=== PATIENT | female | born 1945 | race African-American/Black ===

== ENCOUNTER → 2018-02-28 14:39 | Outpatient (CLI) | payer MEDICARE, OTHER, MEDICAID, SELFPAY ==
--- NOTE | 2018-02-28 14:42 | RAD_ITS ---
STUDY: X-RAY - RIGHT HAND REASON FOR EXAM: Bilateral hand pain. TECHNIQUE: 3 view(s) of the hand. COMPARISON: Radiographs 03/23/2017. FINDINGS: Normal radiocarpal articulation. Normal distal radioulnar joint. Normal visualized carpal bones. There is joint space narrowing of the triscaphe articulation. Normal carpometacarpal articulation of the thumb. Normal second through fifth carpometacarpal joints. Normal metacarpi. Normal metacarpophalangeal joint of the thumb. Normal interphalangeal joint of the thumb. Normal proximal and distal phalanges of the thumb. Normal metacarpophalangeal joints of the second through fifth fingers. Normal proximal and distal interphalangeal joints of the second through fifth fingers. Normal phalanges of the second through fifth fingers. The soft tissue structures are unremarkable. RAD/Hand Min 3 Views IMPRESSION: Triscaphe arthrosis. Otherwise, unremarkable x-ray examination of the right hand. Electronically Signed: Carlos Roth MD at 16:15 EDT Tel , Service support ,
--- NOTE | 2018-02-28 14:49 | RAD_ITS ---
STUDY: X-RAY - LEFT HAND REASON FOR EXAM: Female, 72 years old. Pain TECHNIQUE: Three view(s) of the hand were obtained. COMPARISON: None. FINDINGS: Bones: There are no acute osseous abnormalities. Joints: There is mild narrowing of the radiocarpal joint and first CMC joint. Soft tissues: The soft tissues are unremarkable. Foreign body: None RAD/Hand Min 3 Views IMPRESSION: There are mild degenerative changes in the left wrist. Electronically Signed: Jade Aguilera MD at 12:09 EDT Tel Direct: [phone], Service support ,
== END ==
PROVIDERS: Family Provider Family Medicine; PCP Family Medicine; Visit Provider Orthopaedic Surgery
DX: M79.641 Pain in right hand (principal); M79.642 Pain in left hand
CPT/HCPCS: 73130; 93005

== ENCOUNTER 2018-03-07 07:57 | Inpatient (IN) | payer MEDICARE, OTHER, MEDICAID, SELFPAY ==
[2018-02-28 13:33] VITALS: BP 145/83; PULSE 97; RESP 18; TEMP 36.8; O2SAT 99; BMI 44.6
--- NOTE | 2018-02-28 13:36 | SDCEKG_ITS ---
Test Reason : Blood Pressure : / mmHG Vent. Rate : 084 BPM Atrial Rate : 084 BPM P-R Int : 150 ms QRS Dur : 092 ms QT Int : 392 ms P-R-T Axes : 034 008 045 degrees QTc Int : 463 ms Normal sinus rhythm Normal ECG Confirmed by CORBIN MILES ([id number]), editor newspaper WYATT SORENSEN ([id number]) on 03/02/2018 2:10:11 PM Referred By: Derek Vazquez Confirmed By:CORBIN MILES
[2018-02-28 14:15] LABS: Hematocrit 31.9 % (37-47); Mean Corp Hgb Conc 31.3 g/gl (32-36); Mean Corpuscular Hgb 27.5 pg (27.0-32.0); Mean Corpuscular Volume 87.9 fL (81-99); Platelet Count 269 K/mm3 (150-450); RBC Distribution Width CV 14.6 % (11.6-14.6); RBC Distribution Width SD 45.7 fl (35.1-43.9); Red Blood Count 3.63 M/mm3 (4.2-5.4); White Blood Count 4.9 K/mm3 (4.4-11.0)
[2018-02-28 14:16] LABS: Scan Indicated on CBC? Y/N NO
[2018-02-28 14:26] LABS: Anion Gap 10 (5-15); BUN 19 mg/dL (7-18); BUN/Creat Ratio 13.7 RATIO (10-20); Calcium,Total 8.6 mg/dL (8.5-10.1); Chloride 109 mmol/L (98-107); Creatinine, Serum 1.39 mg/dL (0.55-1.02); EST Glomerular Filtration Rate 39 mL/min (>60); Est Glom Filt Rate - Afr Amer 48 mL/min (>60); Estimated Creatinine Clearance 29.37 ml/min; Glucose 129 mg/dL (74-106); Potassium 3.7 mmol/L (3.5-5.1); Sodium Level 145 mmol/L (136-145)
--- NOTE | 2018-03-02 16:48 | CASEMGMT ---
DARIEN MCCALL called and spoke with patient regarding discharge needs after upcoming surgery. Patient states that she needs a walker, DARIEN MCCALL will assist in obtaining script for walker and arrange for delivery to hospital. Patient states that she would like [facility] setup for outpatient therapy and will arranged for family to assist with transportation. Patient states [facility] DARIEN MCCALL will follow up with patient after surgery and will assist with discharge needs. Disposition Plan: Patient to discharge home with outpatient therapy with support of family and follow-up plans in place Luke ROLAND, RN, CM
[2018-03-07] VITALS (11 sets, daily range): BP systolic 115–155; BP diastolic 67–94; PULSE 60–84; RESP 16–18; TEMP 36.1–37; O2SAT 93–100; BMI 44.6
--- NOTE | 2018-03-07 | KNEE_PTH ---
PATIENT: CLAUDIA REED LOC: MS3 U#:[id number] AGE/SX: 72/F ROOM: MS308 RE03/07/[address]: Derek Vazquez DO : 1945 BED: 1 DIS: 03/09/2018 SPEC #: [id number] RECD: 03/07/18 14:53 STATUS: CLIFF RERhonda #: [id number] KEVON: 03/07/18 00:[address]: Derek Vazquez DEPT: SURGICAL PATHOLOGY RECD BY: Edson Marcial ENTERED: 03/07/18 14:53 SP TYPE: TOTAL KNEE OTHR DR: Dr. Lazaro Moise MD Tissues: Knee, NOS Procedures: Decalcification bone/plaque Surgery Specimen Level IV HEADER OPERATION: Total knee replacement PRE-OP DIAGNOSIS: Primary osteoarthritis of left knee TISSUE SUBMITTED: Bone and tissue of left knee MICROSCOPIC DIAGNOSIS Bone and soft tissue of left knee, total knee resection: Degenerative joint disease. Mild synovial hyperplasia. AM:mariah 03/10/18 MICROSCOPIC DESCRIPTION Slides are reviewed. GROSS DESCRIPTION Received is one container designated bone and soft tissue left knee. The specimen consists of multiple fragments of harden-yellow bone measuring in aggregate 15 x 10 x 2 cm. Also in the specimen container are multiple fragments of yellow-white soft tissue measuring in aggregate 8 x 5 x 2 cm. A number of bony fragments contain articular surfaces consistent with tibial plateau and femoral condyle and displaying prominent osteophyte formation, eburnation, and bone erosion. [facility] sections are submitted in two cassettes as follows: 1 - soft tissue, 2 - bone after decalcification. / AM:mariah 03/07/18 TC:5 CPT: 69805, 28189
[2018-03-07] MEDS: Celecoxib 200 MG Capsule PO (08:32)
[2018-03-07] MEDS: oxyCODONE HCl Cr 10 MG Tablet PO ×2 (08:33→21:33)
--- NOTE | 2018-03-07 09:34 | PCM.IMDPSTOP ---
Immediate Post-Op Note Date of Procedure: 03/07/18 Primary Surgeon/Physician: Derek Vazquez DO toll line mechanic: Margarito Whitman Pre-Operative Diagnosis: Left knee osteoarthritis Post-Operative Diagnosis: Same as above Surgery/Procedure Performed:: Left total knee arthroplasty-[place] so[facility] Description of Surgical Findings:: See dictation Estimated Blood Loss: 50 Specimen's removed: Bone cuts Type of Anesthesia:: General, General/Regional ASA Class: ASA2 Mod Systematic Disease - Admit VTE Documentation VTE Present on Admission: No VTE Mechan Device Prophylaxis: SCD's, Knee High FÁTIMA Hose VTE Pharm Prophylaxis ordered?: Yes
[2018-03-07] MEDS: Cefazolin 2 GM in 0.9% Normal Saline 100 ML IV (10:29)
--- NOTE | 2018-03-07 12:08 | PCM.OPRPT ---
Report of Operation Date of Procedure: 03/07/18 Pre-Operative Diagnosis: Left knee osteoarthritis Post-Operative Diagnosis: Same as above Surgery/Procedure Performed:: Left total knee arthroplasty-Leeanne arriaza Description of Surgical Findings:: 72-year-old female with recalcitrant left knee pain that failed nonoperative management to include NSAIDs activity modifications physical therapy and injections. Patient had plain from radiographs and MRI that showed her to have patellofemoral arthrosis and medial compartment narrowing subchondral edema and meniscal extrusion. Based on age and having failed conservative measures my recommendation was for total knee arthroplasty. Patient agreed due to knee pain affecting her activities of daily living. Patient was met in the holding area over the left lower extremity was marked and identified by the with surgeon. Patient was taken the operating room in satisfactory condition with somewhat to place to identify patient operative procedure and limb. She received 2 g Ancef and 1 g of TXA. Patient underwent a successful general anesthesia and was then prepped and draped in usual fashion. Patient had a well-placed tourniquet the right proximal thigh prior to dressing. Right lower extremity was elevated Esmarch used for exsanguination and tourniquet was increased to 250 mmHg for roughly 60 minutes. Patient had a standard midline incision made 2 fingerbreadths above the patella down to the tibial tubercle. She then underwent a standard medial parapatellar approach. Patient had a large return effusion and significant synovitis. She had went underwent a synovectomy and an anterior release. We performed a standard posterior medial release. We then translated the patella laterally and introduced our canal finder to perform our distal femoral cut. Intramedullary guide was placed we took 8 mm off the distal femur to the fact there was no flexion contracture. We used a 6? valgus cut. After standard cuts were performed we then size. The patient sized to a size 4 femur. Standard cuts were performed. We then turned our attention to the tibia. Tibial guide was set with 3? posterior slope for a CR component. 2 mm were taken off the medial aspect the knee in standard cut was performed. We then brought the leg out to full extension resected out any axis remnant menisci and cauterized the geniculate vessels. The PCL was preserved. 9 mm spacer was introduced. With excellent mechanical alignment and we showed no flexion extension gaps at 0 30 and 90?. At that point time the size 4 femur was then placed in the 3 tibial tray with see the patient better was seated as well. 9 mm spacer was introduced and again we maintained excellent mechanical alignment. Tibial tray was set accordingly. Keel holes placed for the femur the femur was then extracted. We then placed her keel punch in anticipation of a press-fit femur and tibial component secondary to excellent bone quality. This was all done using standard technique. Upon completion we turned our attention to the patella. The patient's patella thickness was 24 mm. We took off 12 in anticipation of placing a 38 patella button. The patella button was prepared in anticipation of a cemented patella component. At that point time trial components were removed and the wound was copiously irrigated to remove the excess debris. We then injected around the soft tissues into the capsule roughly 60 cc of periarticular joint cocktail for pain control. At that point time the cement was prepared the back table during placement of the press-fit femoral and tibial components. Mechanical alignment was preserved trial poly-removed Camila joint was copiously irrigated and a 9 mm CS Annemarie was then introduced to the tibia using standard technique. Cement was prepared at that point time and the patella button then seated using standard technique. Wound scopes irrigated during the cement curing process. During range of motion we showed no signs of her abnormal tracking and no lateral release was performed. At that point time we began our closure. Distal two thirds were closed in 30? knee flexion with #2 Vicryl using [id number] technique. The proximal one third was closed with #2 Vicryl using in full extension. The remaining soft tissues were reapproximated with 2-0 Vicryl sending running subcuticular Monocryl and Dermabond application. Silverlon dressing was then applied. Tourniquet had been let down after roughly 60 minutes. No drains or complications. Implants included [place] triathlon press-fit femur #4, press-fit tibia #3, 9 mm CS tibia, 38 patella button cemented. Patient will be admitted to the floor for 24 hours of IV antibiotics appropriate IV and p.o. pain medication and DVT prophylaxis to include SCDs teds and 325 p.o. twice daily of aspirin with appropriate GI prophylaxis. Any issues please contact me. master data analyst: Margarito Whitman Type of Anesthesia:: General, General/Regional Specimen's removed: Bone cuts Estimated Blood Loss (mL): 50 Grafts/Implants Used: Cherri arriaza press-fit - Complications None - Admit VTE Documentation VTE Present on Admission: No VTE Mechan Device Prophylaxis: SCD's, Knee High FÁTIMA Hose VTE Pharm Prophylaxis ordered?: Yes
--- NOTE | 2018-03-07 12:18 | OP.PCM_ITS ---
Report of Operation Date of Procedure: 03/07/18 Pre-Operative Diagnosis: Left knee osteoarthritis Post-Operative Diagnosis: Same as above Surgery/Procedure Performed:: Left total knee arthroplasty-Leeanne arriaza Description of Surgical Findings:: 72-year-old female with recalcitrant left knee pain that failed nonoperative management to include NSAIDs activity modifications physical therapy and injections. Patient had plain from radiographs and MRI that showed her to have patellofemoral arthrosis and medial compartment narrowing subchondral edema and meniscal extrusion. Based on age and having failed conservative measures my recommendation was for total knee arthroplasty. Patient agreed due to knee pain affecting her activities of daily living. Patient was met in the holding area over the left lower extremity was marked and identified by the with surgeon. Patient was taken the operating room in satisfactory condition with somewhat to place to identify patient operative procedure and limb. She received 2 g Ancef and 1 g of TXA. Patient underwent a successful general anesthesia and was then prepped and draped in usual fashion. Patient had a well -placed tourniquet the right proximal thigh prior to dressing. Right lower extremity was elevated Esmarch used for exsanguination and tourniquet was increased to 250 mmHg for roughly 60 minutes. Patient had a standard midline incision made 2 fingerbreadths above the patella down to the tibial tubercle. She then underwent a standard medial parapatellar approach. Patient had a large return effusion and significant synovitis. She had went underwent a synovectomy and an anterior release. We performed a standard posterior medial release. We then translated the patella laterally and introduced our canal finder to perform our distal femoral cut. Intramedullary guide was placed we took 8 mm off the distal femur to the fact there was no flexion contracture. We used a 6? valgus cut. After standard cuts were performed we then size. The patient sized to a size 4 femur. Standard cuts were performed. We then turned our attention to the tibia. Tibial guide was set with 3? posterior slope for a CR component. 2 mm were taken off the medial aspect the knee in standard cut was performed. We then brought the leg out to full extension resected out any axis remnant menisci and cauterized the geniculate vessels. The PCL was preserved. 9 mm spacer was introduced. With excellent mechanical alignment and we showed no flexion extension gaps at 0 30 and 90?. At that point time the size 4 femur was then placed in the 3 tibial tray with see the patient better was seated as well. 9 mm spacer was introduced and again we maintained excellent mechanical alignment. Tibial tray was set accordingly. Keel holes placed for the femur the femur was then extracted. We then placed her keel punch in anticipation of a press-fit femur and tibial component secondary to excellent bone quality. This was all done using standard technique. Upon completion we turned our attention to the patella. The patient's patella thickness was 24 mm. We took off 12 in anticipation of placing a 38 patella button. The patella button was prepared in anticipation of a cemented patella component. At that point time trial components were removed and the wound was copiously irrigated to remove the excess debris. We then injected around the soft tissues into the capsule roughly 60 cc of periarticular joint cocktail for pain control. At that point time the cement was prepared the back table during placement of the press-fit femoral and tibial components. Mechanical alignment was preserved trial poly- removed Camila joint was copiously irrigated and a 9 mm CS Annemarie was then introduced to the tibia using standard technique. Cement was prepared at that point time and the patella button then seated using standard technique. Wound scopes irrigated during the cement curing process. During range of motion we showed no signs of her abnormal tracking and no lateral release was performed. At that point time we began our closure. Distal two thirds were closed in 30? knee flexion with #2 Vicryl using [id number] technique. The proximal one third was closed with #2 Vicryl using in full extension. The remaining soft tissues were reapproximated with 2-0 Vicryl sending running subcuticular Monocryl and Dermabond application. Silverlon dressing was then applied. Tourniquet had been let down after roughly 60 minutes. No drains or complications. Implants included [place] triathlon press-fit femur #4, press- fit tibia #3, 9 mm CS tibia, 38 patella button cemented. Patient will be admitted to the floor for 24 hours of IV antibiotics appropriate IV and p.o. pain medication and DVT prophylaxis to include SCDs teds and 325 p.o. twice daily of aspirin with appropriate GI prophylaxis. Any issues please contact me. bungy jump master: Margarito Whitman Type of Anesthesia:: General, General/Regional Specimen's removed: Bone cuts Estimated Blood Loss (mL): 50 Grafts/Implants Used: Cherri arriaza press-fit - Complications None - Admit VTE Documentation VTE Present on Admission: No VTE Mechan Device Prophylaxis: SCD's, Knee High FÁTIMA Hose VTE Pharm Prophylaxis ordered?: Yes
--- NOTE | 2018-03-07 12:40 | RAD_ITS ---
STUDY: X-RAY - LEFT KNEE REASON FOR EXAM: Female, 72 years old. Postop left knee replacement. TECHNIQUE: 2 view(s) of the knee. COMPARISON: None. FINDINGS: The patient is status post knee arthroplasty in anatomic alignment. There are typical and expected immediate postoperative soft tissue changes. There is no significant incidental finding. RAD/Knee 1 or 2 Views IMPRESSION: Status post left knee arthroplasty in anatomic alignment. No significant incidental finding. Electronically Signed: Tone Her MD at 13:06 EDT , Service support ,
[2018-03-07] MEDS: Lactated Ringers 1,000 ML 75 ML IV (13:29)
[2018-03-07] MEDS: Ondansetron 4 MG/2 ML Vial IV (14:46)
[2018-03-07] MEDS: Acetaminophen 500 MG Tablet 1000 MG PO ×2 (14:57→21:33)
[2018-03-07] MEDS: Cefazolin 1 GM/50 ML BAG IV (18:10)
[2018-03-07] MEDS: Folic Acid 1 MG Tablet PO (18:11)
[2018-03-07] MEDS: oxyCODONE 5 MG Tablet PO (18:13)
[2018-03-07] MEDS: Senna/Docusate Sodium 1 Tablet 2 TABLET PO (21:33)
[2018-03-08] MEDS: Cefazolin 1 GM/50 ML BAG IV (02:10)
[2018-03-08] MEDS: Lactated Ringers 1,000 ML 75 ML IV (02:10)
[2018-03-08] MEDS: oxyCODONE 5 MG Tablet PO ×2 (02:14→15:53)
[2018-03-08 02:15] VITALS: BP 107/53; PULSE 80; RESP 18; TEMP 36.7; O2SAT 97
[2018-03-08 06:29] LABS: Hematocrit 29.4 % (37-47); Hemoglobin 9.1 g/dl (12.0-15.0); Mean Corpuscular Hgb 27.9 pg (27.0-32.0); Mean Corpuscular Volume 90.2 fL (81-99); Mean Platelet Vol. 9.6 fl (6.2-12.0); Platelet Count 280 K/mm3 (150-450); RBC Distribution Width CV 14.8 % (11.6-14.6); RBC Distribution Width SD 47.5 fl (35.1-43.9); Red Blood Count 3.26 M/mm3 (4.2-5.4)
[2018-03-08] MEDS: Acetaminophen 500 MG Tablet 1000 MG PO ×3 (06:32→21:28)
[2018-03-08 06:33] LABS: Scan Indicated on CBC? Y/N NO
[2018-03-08 06:48] LABS: Anion Gap 9 (5-15); BUN 27 mg/dL (7-18); BUN/Creat Ratio 14.2 RATIO (10-20); Calcium,Total 8.3 mg/dL (8.5-10.1); Chloride 106 mmol/L (98-107); EST Glomerular Filtration Rate 27 mL/min (>60); Est Glom Filt Rate - Afr Amer 33 mL/min (>60); Estimated Creatinine Clearance 21.49 ml/min; Glucose 91 mg/dL (74-106); Potassium 4.5 mmol/L (3.5-5.1); Sodium Level 141 mmol/L (136-145)
--- NOTE | 2018-03-08 07:43 | PCM.PN.ORT ---
Subjective: Postop day 1 status post left total knee arthroplasty. No issues overnight. Patient is doing well. Appears a little bit lethargic but she had just woken up when I came into the room. Otherwise states her pain is controlled at this point time. Denies any other fevers chills nausea vomiting chest pain or shortness of breath. - Physical Exam General: Alert, Oriented x3, Cooperative, No apparent distress Musculoskeletal: - - No calf pain negative Homans. No range of motion check secondary to the patient just waking up. SCDs in place. Lab values reviewed and stable. Hardware well seated well-placed. Distally neurovascular intact. Vital Signs Temp Pulse Resp BP Pulse Ox 98.1 F 80 18 107/53 L 97 03/08/18 02:15 03/08/18 02:15 03/08/18 02:15 03/08/18 02:15 03/08/18 02:15 Oxygen Flow Rate (L/min) 2 Oxygen Delivery Method Nasal Cannula Weight: 251 lb 12.286 oz Body Mass Index (BMI) 44.6 Intake and Output for Last 24 Hours 03/06/18 03/07/18 03/08/18 23:59 23:59 23:59 Intake Total 2921 / 2921 557 / 557 Output Total 650 / 650 Balance 2271 / 2271 557 / 557 Laboratory Tests Past 24 Hrs 03/08/18 03/08/18 06:00 06:00 WBC 8.0 RBC 3.26 L Hgb 9.1 L Hct 29.4 L MCV 90.2 MCH 27.9 MCHC 31.0 L RDW 14.8 H RDW Differential 47.5 H Plt Count 280 MPV 9.6 Sodium 141 Potassium 4.5 Chloride 106 Carbon Dioxide 26.0 Anion Gap 9 BUN 27 H Creatinine 1.90 H Estim Creat Clear Calc 21.49 Est GFR (MDRD) Af Amer 33 L Est GFR (MDRD) Non-Af 27 L BUN/Creatinine Ratio 14.2 Glucose 91 Calcium 8.3 L Medical Necessity - Tobacco Use Smoking Status: Never smoker Assessment/Plan Assessment: Postop day 1 status post left total knee arthroplasty doing well. History of anemia currently on medication. Stable. Plan: This point time continue to advance her rehab protocol. I think the patient needs to be seen by the case management team for placement to the transitional care unit or an equivalent skilled nurse facility. Patient lives alone. I do not think that her daughter would be able to accommodate for her at this point time. Patient is sensitive to medication in my opinion from previous operative intervention and will need to be watched closely. If the patient appears to be too sedated limit her overall medication. If necessary hold the OxyContin and simply use the OxyIR. We will continue to follow. Any major issues please contact me.
[2018-03-08 08:15] VITALS: BP 129/61; PULSE 70; RESP 18; TEMP 36.9; O2SAT 100
[2018-03-08] MEDS: Verapamil SR 180 MG CAPSULE 360 MG PO (08:19)
[2018-03-08] MEDS: Iron Polysaccharide Complex 150 MG CAPSULE PO (08:20)
[2018-03-08] MEDS: Ascorbic Acid 500 MG Tablet 1000 MG PO (08:20)
[2018-03-08] MEDS: Multivitamins,Therapeutic Tablet 1 TABLET PO (08:20)
[2018-03-08] MEDS: Aspirin 325 MG Tablet PO ×2 (08:20→16:51)
[2018-03-08] MEDS: Famotidine 20 MG Tablet PO (08:20)
[2018-03-08] MEDS: Senna/Docusate Sodium 1 Tablet 2 TABLET PO ×2 (08:20→21:29)
[2018-03-08] MEDS: Folic Acid 1 MG Tablet PO ×2 (08:20→16:51)
--- NOTE | 2018-03-08 10:45 | CASEMGMT ---
DARIEN MCCALL Face to Face with patient for initial transition planning/care coordination assessment. DARIEN MCCALL introduced self and role at [facility]. Patient lying in bed, alert and oriented. Patient willing to participate in assessment and is able to answer all questions appropriately. Care providers, pharmacy, and demographics verified. Patient wishes to discharge home with outpatient therapy at [facility]. Patient states the Dr. Vazquez was suggesting placement for her for couple weeks to transition home. Patient states that she is not sure what she would like at this point. DARIEN MCCALL will follow-up with patient this afternoon for discharge plan. Patient states she has no further needs or concerns at this time. CM to follow for discharge planning needs that may arise. Disposition Plan: TBD
--- NOTE | 2018-03-08 13:30 | CASEMGMT ---
DARIEN MCCALL followed up with patient regarding discharge plans. DARIEN MCCALL explained options of TCU, inpatient rehab, or home. After explaining options and concerns at home patient is agreeable to inpatient rehab. DARIEN MCCALL updated Dr. Vazquez and SHARON Schmitt regarding discharge plan.
[2018-03-08 13:33] VITALS: BP 139/64; PULSE 88; RESP 18; TEMP 36.6; O2SAT 95
--- NOTE | 2018-03-08 13:41 | CASEMGMT ---
Social Work Note SW received update from DARIEN Pimentel that pt is agreeable to inpatient rehab or TCU at discharge. SHARON called Brigitte in inpatient rehab to give her the referral. Per Brigitte she can take pt and will have a bed ready for her when pt is medically cleared to be discharged. DARIEN Pimentel updated Dr. Vazquez of this. Plan: Discharge to inpatient rehab when medically cleared Nevaeh Schmitt MSW, [employer].
[2018-03-08] MEDS: traMADol 50 MG Tablet PO (16:51)
[2018-03-08 19:33] VITALS: BP 121/53; PULSE 80; RESP 16; TEMP 36.7; O2SAT 94
[2018-03-08 20:00] VITALS: PULSE 80; RESP 16
[2018-03-08] MEDS: DiphenhydrAMINE 50 MG/ML Syringe 25 MG IV (21:29)
[2018-03-09 02:00] VITALS: BP 140/61; PULSE 90; RESP 16; TEMP 36.7; O2SAT 94
[2018-03-09] MEDS: oxyCODONE 5 MG Tablet PO (02:45)
[2018-03-09] MEDS: Ondansetron 4 MG/2 ML Vial IV (03:05)
[2018-03-09] MEDS: Acetaminophen 500 MG Tablet 1000 MG PO ×2 (06:25→13:05)
--- NOTE | 2018-03-09 06:59 | PCM.DC.TKR ---
Discharge Activity: Return to Normal Activity, May not drive while taking narcotic pain medications., May Shower, Use Walker May shower in (days): 1 May resume sexual activity in: No Restrictions Ice area for (Minutes): 20 Weight Bearing Status: Weight bearing as tolerated Elevate: Left Leg Additional Activity Instructions:: Work on gaining full extension and flexion. Activity as tolerated. Call your doctor if your incision/area has: Continuous Slow Oozing, Sudden Increased Bleeding, Increased Pain/ Swelling, Increased Redness, Foul Smelling Discharge, Swelling at the incision site Call your doctor if you observe: Fever of 101 or Higher, Coldness, Increased Pain, Numbness or Tingling, Change in Color, Inability to urinate, Inability to have a bowel movement, Using more than one pad per hour, Shortness of breath, Dizziness, Fainting spells, Swelling in the ankles, Chest pain, Prolonged hiccoughing, Increased palpitations (irregular heartbeat), Calf discomfort, Uncontrolled pain Suture Line Care: Avoid Pulling/Pushing, Avoid Pinching/Bending Change Dressing in (Days):: 5 Remove Dressing in (days):: 5 Cleanse incision/area with: Soap & Water Additional Dressing/Incision Instructions:: Silverlon dressing stays in place for 5 total days. If signs of blister formation around edges, the dressing can be removed and simple application of triple antibiotic Neosporin or bacitracin equivalent can be used. Patient may shower at this time. Do not submerge wound. Allergies/Adverse Reactions: Allergies codeine Adverse Reaction (Verified 02/28/18 14:26) Nausea latex Adverse Reaction (Verified 03/08/18 20:53) Rash tape causes blisters tramadol [From Ultra] Adverse Reaction (Verified 03/09/18 06:29) Itching Medications to take at Discharge Verapamil HCl 360 mg PO DAILY 07/16/16 proMETHazine tablet [Phenergan tablet] 25 mg PO Q4H PRN PRN #10 tab 06/28/17 Diazepam 10 mg PO PRN PRN 02/28/18 Aspirin E.C. [Ecotrin] 325 mg PO BID #30 tab 03/09/18 Docusate Sodium [Colace] 100 mg PO BID PRN PRN #10 cap 03/09/18 Famotidine [Pepcid] 40 mg PO DAILY #30 tab 03/09/18 Folic Acid 1 mg PO DAILY@0800 #30 tab 03/09/18 Iron Polysaccharide Complex [Ferrex 150] 150 mg PO DAILYCM #30 cap 03/09/18 Multivit with Calcium,Iron,Min [Multiple Vitamins For Women] 1 ea PO DAILY #30 tab 03/09/18 Oxycodone HCl/Acetaminophen [Percocet 5/325] 1 - 2 tab PO Q4H PRN PRN #60 tab 03/09/18 proMETHazine tablet [Phenergan] 25 mg PO Q4H PRN PRN #10 tab 03/09/18 The following prescriptions were given: Oxycodone HCl/Acetaminophen [Percocet 5/325] 1 - 2 tab PO Q4H PRN PRN #60 tab PRN Reason: Pain proMETHazine tablet [Phenergan] 25 mg PO Q4H PRN PRN #10 tab PRN Reason: Nausea Docusate Sodium [Colace] 100 mg PO BID PRN PRN #10 cap PRN Reason: Constipation Famotidine [Pepcid] 40 mg PO DAILY #30 tab Folic Acid 1 mg PO DAILY@0800 #30 tab Iron Polysaccharide Complex [Ferrex 150] 150 mg PO DAILYCM #30 cap Multivit with Calcium,Iron,Min [Multiple Vitamins For Women] 1 ea PO DAILY #30 tab Aspirin E.C. [Ecotrin] 325 mg PO BID #30 tab Primary Care Physician: Lazaro Moise MD [Primary Care Provider] - Please Follow Up With: Derek Vazquez DO When: call [facility] for appt for 2 weeks Proposed Discharge Date: 03/09/18
[2018-03-09 07:00] LABS: Hematocrit 25.9 % (37-47); Mean Corp Hgb Conc 30.9 g/gl (32-36); Mean Corpuscular Hgb 27.6 pg (27.0-32.0); Mean Corpuscular Volume 89.3 fL (81-99); Mean Platelet Vol. 9.7 fl (6.2-12.0); Platelet Count 227 K/mm3 (150-450); RBC Distribution Width CV 14.7 % (11.6-14.6); RBC Distribution Width SD 47.1 fl (35.1-43.9); White Blood Count 10.1 K/mm3 (4.4-11.0)
[2018-03-09 07:02] LABS: Scan Indicated on CBC? Y/N NO
[2018-03-09 07:22] LABS: Anion Gap 7 (5-15); BUN 29 mg/dL (7-18); BUN/Creat Ratio 15.3 RATIO (10-20); Calcium,Total 8.2 mg/dL (8.5-10.1); Chloride 106 mmol/L (98-107); EST Glomerular Filtration Rate 27 mL/min (>60); Est Glom Filt Rate - Afr Amer 33 mL/min (>60); Estimated Creatinine Clearance 21.49 ml/min; Glucose 88 mg/dL (74-106); Potassium 4.3 mmol/L (3.5-5.1); Sodium Level 139 mmol/L (136-145)
[2018-03-09 07:59] VITALS: BP 125/61; PULSE 89; RESP 16; TEMP 36.8; O2SAT 98
[2018-03-09] MEDS: Multivitamins,Therapeutic Tablet 1 TABLET PO (08:03)
[2018-03-09] MEDS: Ascorbic Acid 500 MG Tablet 1000 MG PO (08:03)
[2018-03-09] MEDS: Senna/Docusate Sodium 1 Tablet 2 TABLET PO (08:03)
[2018-03-09] MEDS: Famotidine 20 MG Tablet PO (08:03)
[2018-03-09] MEDS: Folic Acid 1 MG Tablet PO (08:03)
[2018-03-09] MEDS: Iron Polysaccharide Complex 150 MG CAPSULE PO (08:04)
[2018-03-09] MEDS: Aspirin 325 MG Tablet PO (08:04)
[2018-03-09] MEDS: Verapamil SR 180 MG CAPSULE 360 MG PO (08:04)
--- NOTE | 2018-03-09 09:23 | CASEMGMT ---
Social Work Note Pt is set to discharge today to inpatient rehab. SW met with pt to inform her of this. Pt was receptive and thanked this SW. SW asked pt if she would like this worker to call any family members to inform them of this and per pt her granddaughter and daughter will be coming into hospital today and denied wanting this worker to call other family members. Pt denied additional needs or concerns at this time. Plan: Discharge to inpatient rehab for rehabilitation Nevaeh Schmitt [employer], DIGITAL ACCOUNT EXECUTIVE
[2018-03-09 11:38] VITALS: BP 123/70; PULSE 84; RESP 16; TEMP 36.8; O2SAT 92
--- NOTE | 2018-03-09 13:14 | NURSING ---
report called pt left for rehab unit
== END 2018-03-09 13:15 | DRG 470 ==
LOC: ACINP 07:58 → MS3 08:39
PROVIDERS: Anesthesiology; Admitting Provider Orthopaedic Surgery; Family Provider Family Medicine; PCP Family Medicine; Visit Provider Orthopaedic Surgery
PROC: 0SRD069 Replacement of Left Knee Joint with Oxidized Zirconium on Polyethylene Synthetic Substitute, Cemented, Open Approach (ICD-10-PCS; CPT 27447; principal; 2018-03-07 10:05)
DX: M17.12 Unilateral primary osteoarthritis, left knee (principal); M23.8X2 Other internal derangements of left knee; Z79.899 Other long term (current) drug therapy; E78.00 Pure hypercholesterolemia, unspecified; I10 Essential (primary) hypertension; Z87.891 Personal history of nicotine dependence; Z86.2 Personal history of diseases of the blood and blood-forming organs and certain disorders involving the immune mechanism; F41.9 Anxiety disorder, unspecified
CPT/HCPCS: 36415; 73560; 80048; 85027; 87081; 88305; 88311; 97110; 97162; 97165; 97530; 97535; J7120; J2405

== ENCOUNTER 2018-03-09 13:33 | Inpatient (IN) | payer MEDICARE, OTHER, MEDICAID, SELFPAY ==
[2018-03-09 14:10] VITALS: BP 145/62; PULSE 94; RESP 20; TEMP 36.7; O2SAT 91; BMI 44.5
--- NOTE | 2018-03-09 14:57 | PCM.HP.COS ---
History of Present Illness Date of Admission: 03/09/18 Chief Complaint: Left Total Knee Replacement The patient is a 72 year old Female who was admitted to the rehab unit for rehabilitation following a left total knee arthroplasty on 03/07/[address] Vazquez. Without complications. Patient has a past medical history of hypertension, GERD, chronic constipation, iron deficiency anemia, and anxiety. She lives with her grandson in a two story home with 5 steps to get in the home. Her plan is to go to her granddaughter house after discharge from the Rehab unit. She was previous completely functionally independent and is admitted to the rehab unit in order to restore her previous level of functional independence. Past Medical History Past Medical History (Chronic Problems): Chronic Problems (Last Updated 01/25/18 @ 14:25 by Omero Moore) Benign essential hypertension (Chronic) Chronic constipation (Chronic) GERD (gastroesophageal reflux disease) (Chronic) Allergies codeine Adverse Reaction (Verified 02/28/18 14:26) Nausea latex Adverse Reaction (Verified 03/08/18 20:53) Rash tape causes blisters tramadol [From Ultra] Adverse Reaction (Verified 03/09/18 06:29) Itching Home Medications: Ambulatory Orders Medication Instructions Recorded Verapamil HCl 360 mg PO DAILY 07/16/16 proMETHazine tablet [Phenergan 25 mg PO Q4H PRN PRN #10 tab 06/28/17 tablet] Diazepam 10 mg PO PRN PRN 02/28/18 Aspirin E.C. 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 Lives: With Family - grandson Smoking Status: Never smoker Tobacco Use: Non-smoker Alcohol: None Drugs: None - *Family History Sibling History Items: Diabetes Review of Systems Constitutional: Denies: Chills, Fever, Weight Change HEENT: Denies: Head Aches, Sinus Congestion, Sinus Drainage Cardiovascular: Denies: Chest Pain, Palpitations Respiratory: Denies: Cough, Shortness of breath at rest, Sputum production Gastrointestinal: Denies: Abdominal Pain, Nausea, Vomiting Genitourinary: Denies: Dysuria Musculoskeletal: Denies: Joint Pain, Joint Tenderness Skin: Denies: Rash, Wounds Neurological: Denies: Numbness, Tingling, Focal weakness Psychiatric: Denies: Anxiety, Depression, Homicidal Ideations, Suicidal Ideations Hematologic/ Lymphatic: Denies: Easy Bruising, Easy Bleeding VTE Information - Inpt Only VTE Present on Admission: Yes VTE Mechan Device Prophylaxis: SCD's, Knee High FÁTIMA Hose VTE Pharm Prophylaxis ordered?: Yes - Physical Exam General: Alert, Oriented x3, Cooperative HEENT: Atraumatic, PERRLA, EOMI, Normocephalic Neck: Supple, No JVD, Negative Carotid Bruits Lungs: Clear to auscultation, Normal air movement Cardiovascular: Regular rate, No murmurs Abdomen: Bowel Sounds Present, Soft, Non Tender Extremities: No edema, Capillary Refill Less than 3 Seconds Skin: No rashes, No breakdown Musculoskeletal: No Tenderness to Palpation of Joints or Extremities Neurological: Cranial nerves II-XII grossly intact Psych/Mental Status: Normal Affect, Appropriate, Alert and oriented to time, place, person, mood and affect Vital Signs Temp Pulse Resp BP Pulse Ox 98.0 F 94 20 H 145/62 H 91 03/09/18 14:10 03/09/18 14:10 03/09/18 14:10 03/09/18 14:10 03/09/18 14:10 Oxygen Delivery Method Room Air Weight: 114 kg Body Mass Index (BMI) 44.5 Active Medications Aspirin (Ecotrin) 325 mg PO BIDCM [facility] Bisacodyl (Dulcolax) 10 mg RECTAL .PRN X 1 PRN PRN Reason: Constipation Docusate Sodium (Colace) 100 mg PO BID PRN PRN PRN Reason: Constipation Famotidine (Pepcid) 40 mg PO DAILY [facility] Folic Acid (Folic Acid) 1 mg PO DAILY@0800 [facility] Magnesium Hydroxide (Milk Of Magnesia) 30 ml PO .PRN X 1 PRN PRN Reason: Constipation Multivitamins/Minerals (Multivitamin With Minerals) 1 tablet PO DAILY@0800 [facility] Oxycodone HCl (Oxyir) 5 - 10 mg PO Q4H PRN PRN PRN Reason: PAIN Polysaccharide Iron Complex (Ferrex 150) 150 mg PO DAILYCM [facility] Promethazine HCl (Phenergan Tablet) 25 mg PO Q4H PRN PRN PRN Reason: NAUSEA Senna/Docusate Sodium (Senokot-S, Rafia-Colace) 2 tablet PO BID [facility] Verapamil HCl (Calan Sr) 360 mg PO DAILY [facility] Assessment/Plan Debility status post Left total knee replacement surgery. Goal of rehab is mormonism of prior level of functional independence. Plan: - Physical therapy for gait and balance - Occupational Therapy for ADLs - As needed analgesics - Bowel protocol - DVT prophylaxis: BID Aspirin therapy 325mg BID, per orthopedic surgeon, Fátima Saucedo - HLD - continue home dose of statin - HTN - stable => continue home medications of verapamil - Post op anemia - resolved Hgb on 07/22 was 10.7, No signs of any bleeding. - Anemia 2/2 acute blood loss following surgery, baseline hemoglobin approximately 10. Hemoglobin currently 8 -> patient placed on Ferrex - Hypokalemia => K+ 3.3, K-Dur 40 meq x 3 days recheck K+ on day 07/30. - Status post left total knee arthroplasty -> incision C/D/I, well approximated, no drainage noted. - Hx: GERD-continue home famotidine regimen. - Hx: Chronic constipation-continue current bowel regimen including MiraLAX daily and senna/docusate sodium twice daily.
--- NOTE | 2018-03-09 15:05 | HP.PCM.COS_ITS ---
History of Present Illness Date of Admission: 03/09/18 Chief Complaint: Left Total Knee Replacement The patient is a 72 year old Female who was admitted to the rehab unit for rehabilitation following a left total knee arthroplasty on 03/07/[address] Vazquez. Without complications. Patient has a past medical history of hypertension , GERD, chronic constipation, iron deficiency anemia, and anxiety. She lives with her grandson in a two story home with 5 steps to get in the home. Her plan is to go to her granddaughter house after discharge from the Rehab unit. She was previous completely functionally independent and is admitted to the rehab unit in order to restore her previous level of functional independence. Past Medical History Past Medical History (Chronic Problems): Chronic Problems (Last Updated 01/25/18 @ 14:25 by Omero Moore) Benign essential hypertension (Chronic) Chronic constipation (Chronic) GERD (gastroesophageal reflux disease) (Chronic) Allergies codeine Adverse Reaction (Verified 02/28/18 14:26) Nausea latex Adverse Reaction (Verified 03/08/18 20:53) Rash tape causes blisters tramadol [From Ultra] Adverse Reaction (Verified 03/09/18 06:29) Itching Home Medications: Ambulatory Orders Medication Instructions Recorded Verapamil HCl 360 mg PO DAILY 07/16/16 proMETHazine tablet [Phenergan 25 mg PO Q4H PRN PRN #10 tab 06/28/17 tablet] Diazepam 10 mg PO PRN PRN 02/28/18 Aspirin E.C. 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 Lives: With Family - grandson Smoking Status: Never smoker Tobacco Use: Non-smoker Alcohol: None Drugs: None - *Family History Sibling History Items: Diabetes Review of Systems Constitutional: Denies: Chills, Fever, Weight Change HEENT: Denies: Head Aches, Sinus Congestion, Sinus Drainage Cardiovascular: Denies: Chest Pain, Palpitations Respiratory: Denies: Cough, Shortness of breath at rest, Sputum production Gastrointestinal: Denies: Abdominal Pain, Nausea, Vomiting Genitourinary: Denies: Dysuria Musculoskeletal: Denies: Joint Pain, Joint Tenderness Skin: Denies: Rash, Wounds Neurological: Denies: Numbness, Tingling, Focal weakness Psychiatric: Denies: Anxiety, Depression, Homicidal Ideations, Suicidal Ideations Hematologic/ Lymphatic: Denies: Easy Bruising, Easy Bleeding VTE Information - Inpt Only VTE Present on Admission: Yes VTE Mechan Device Prophylaxis: SCD's, Knee High FÁTIMA Hose VTE Pharm Prophylaxis ordered?: Yes - Physical Exam General: Alert, Oriented x3, Cooperative HEENT: Atraumatic, PERRLA, EOMI, Normocephalic Neck: Supple, No JVD, Negative Carotid Bruits Lungs: Clear to auscultation, Normal air movement Cardiovascular: Regular rate, No murmurs Abdomen: Bowel Sounds Present, Soft, Non Tender Extremities: No edema, Capillary Refill Less than 3 Seconds Skin: No rashes, No breakdown Musculoskeletal: No Tenderness to Palpation of Joints or Extremities Neurological: Cranial nerves II-XII grossly intact Psych/Mental Status: Normal Affect, Appropriate, Alert and oriented to time, place, person, mood and affect Vital Signs Temp Pulse Resp BP Pulse Ox 98.0 F 94 20 H 145/62 H 91 03/09/18 14:10 03/09/18 14:10 03/09/18 14:10 03/09/18 14:10 03/09/18 14:10 Oxygen Delivery Method Room Air Weight: 114 kg Body Mass Index (BMI) 44.5 Active Medications Aspirin (Ecotrin) 325 mg PO BIDCM [facility] Bisacodyl (Dulcolax) 10 mg RECTAL .PRN X 1 PRN PRN Reason: Constipation Docusate Sodium (Colace) 100 mg PO BID PRN PRN PRN Reason: Constipation Famotidine (Pepcid) 40 mg PO DAILY [facility] Folic Acid (Folic Acid) 1 mg PO DAILY@0800 [facility] Magnesium Hydroxide (Milk Of Magnesia) 30 ml PO .PRN X 1 PRN PRN Reason: Constipation Multivitamins/Minerals (Multivitamin With Minerals) 1 tablet PO DAILY@0800 [facility] Oxycodone HCl (Oxyir) 5 - 10 mg PO Q4H PRN PRN PRN Reason: PAIN Polysaccharide Iron Complex (Ferrex 150) 150 mg PO DAILYCM [facility] Promethazine HCl (Phenergan Tablet) 25 mg PO Q4H PRN PRN PRN Reason: NAUSEA Senna/Docusate Sodium (Senokot-S, Rafia-Colace) 2 tablet PO BID [facility] Verapamil HCl (Calan Sr) 360 mg PO DAILY [facility] Assessment/Plan Debility status post Left total knee replacement surgery. Goal of rehab is quaker of prior level of functional independence. Plan: - Physical therapy for gait and balance - Occupational Therapy for ADLs - As needed analgesics - Bowel protocol - DVT prophylaxis: BID Aspirin therapy 325mg BID, per orthopedic surgeon, Fátima Saucedo - HLD - continue home dose of statin - HTN - stable => continue home medications of verapamil - Post op anemia - resolved Hgb on 07/22 was 10.7, No signs of any bleeding. - Anemia 2/2 acute blood loss following surgery, baseline hemoglobin approximately 10. Hemoglobin currently 8 -> patient placed on Ferrex - Hypokalemia => K+ 3.3, K-Dur 40 meq x 3 days recheck K+ on day 07/30. - Status post left total knee arthroplasty -> incision C/D/I, well approximated , no drainage noted. - Hx: GERD-continue home famotidine regimen. - Hx: Chronic constipation-continue current bowel regimen including MiraLAX daily and senna/docusate sodium twice daily.
--- NOTE | 2018-03-09 15:38 | PCM.PROGNOTE ---
Subjective: Patient seen and examined. Complains of left knee pain, 04/23. Pain is worse with ambulation. Denies shortness of breath, chest pain. Denies GI/ complaints. Denies other complaints. - Physical Exam General: Alert, Oriented x3, Cooperative, No apparent distress HEENT: Atraumatic, PERRLA, EOMI, Normocephalic Neck: Supple, No JVD, Negative Carotid Bruits Lungs: Clear to auscultation, Diminished Cardiovascular: Regular rate, Regular Rhythm, Normal S1, Normal S2, No murmurs Abdomen: Bowel Sounds Present, Soft, Non Tender, Non-Distended, Obese Extremities: No clubbing, No cyanosis, No edema, Capillary Refill Less than 3 Seconds Skin: - - Left knee postop incision without redness or drainage. Musculoskeletal: No Tenderness to Palpation of Joints or Extremities Neurological: Cranial nerves II-XII grossly intact, Neuro grossly intact Psych/Mental Status: Normal Affect, Appropriate Vital Signs Temp Pulse Resp BP Pulse Ox 98.0 F 94 20 H 145/62 H 91 03/09/18 14:10 03/09/18 14:10 03/09/18 14:10 03/09/18 14:10 03/09/18 14:10 Oxygen Delivery Method Room Air Weight: 114 kg Body Mass Index (BMI) 44.5 Medical Necessity - Tobacco Use Smoking Status: Never smoker Tobacco Use: Non-smoker Assessment/Plan Patient is a 72-year-old female admitted to rehab unit 03/09/18 following left total knee arthroplasty 03/07/[address] Vazquez. Hospitalist services consulted for medical management. Patient has a past medical history of hypertension, GERD, chronic constipation, iron deficiency anemia, anxiety. 1. Status post left total knee arthroplasty 03/07/[address] Vazquez. PT/OT. Continue as needed pain regimen. Continue bowel regimen. 2. Acute blood loss anemia, expected outcome secondary to orthopedic surgery on chronic iron deficiency anemia-baseline hemoglobin approximately 10. Hemoglobin currently 8. Continue iron supplementation. 3. Hypertension-stable, continue home verapamil regimen. 4. GERD-continue home famotidine regimen. 5. Chronic constipation-continue current bowel regimen including MiraLAX daily and senna/docusate sodium twice daily. 6. Anxiety-continue home as needed diazepam regimen. DVT prophylaxis-aspirin 325 mg twice daily. This patient was seen by SUHAIL Huizar under the supervision of Dr. Cartwright.
[2018-03-09 16:03] VITALS: O2SAT 99
[2018-03-09] MEDS: Aspirin E.C. 325 MG Tablet PO (17:18)
[2018-03-09] MEDS: Acetaminophen 325 MG Tablet 650 MG PO (18:23)
[2018-03-09 20:24] VITALS: BP 125/65; PULSE 93; RESP 17; TEMP 36.9; O2SAT 90
--- NOTE | 2018-03-09 20:25 | NURSING ---
O2 sats 90%. 2L O2 applied per NC. Sats go up to 95% with O2 on. No signs and symptoms of resp distress
[2018-03-09] MEDS: Senna/Docusate Sodium 1 Tablet 2 TABLET PO (20:39)
[2018-03-09] MEDS: oxyCODONE 5 MG Tablet PO (20:39)
--- NOTE | 2018-03-09 21:11 | NURSING ---
SL dc'd due to inability to flush. 2x2 dressing applied
--- NOTE | 2018-03-09 21:12 | PCM.RU.PYE ---
Admission Information Status Changes from Prescreening?: No changes Identified Actual Problem List:: Mobility Impaired, Self Care Deficit, BP, Hypertension Potential Problem List:: DVT, Bleeding, Infection, UTI, Aspiration, Falls, Skin Integrity, Depression Risk of Complications DVT: LMWH, FÁTIMA Hose, Sequential Compression Device Bleeding: Monitor Lab Values, Nursing to Teach Precautions for anti-coagulation therapy., Wound, if applicable, to be assessed every shift., Stroke patients assessed for lethargy or change in status. Infection: Clinical Staff to Monitor for S/S of infection:, S/S of infection include fever, redness, warmth, etc. Urinary Tract Infection: Monitor for frequency, burning, discomfort, or incontinence., Nursing will obtain urine sample for urinalysis and C&S when ordered. Aspiration: Clinical staff will monitor for coughing, drooling, congestion., Speech will evaluate swallowing and dsyphasia., Nursing will monitor patient swallowing during meals. Falls: Patient will be evaluated for Fall Precautions, Patient will be placed on Fall Precautions as indicated per protocol. Skin Breakdown: Nursing will assess skin daily using assessment tool., Nursing will place on Skin Breakdown Precautions as indicated. Pain: Clinical staff will assess patient's pain level per protocol., Medications will be given, if needed, and the pain level reassessed., Other methods: Massage, distraction, decrease stimulus, etc. used PRN. Plan of Care Patient requires physician specializing in physical medicine and rehab oversight to provide close medical supervision of rehab issues including: Pain Management, Sleep Problems, Bowel and Bladder, Medical and co-morbidity Management, DVT prophylaxis, Rehabilitation Leadership, Coordination of treatment team Patient needs Physical Therapy: For a minimum of 1 hour, At least 5 out of 7 days Patient needs Physical Therapy to improve:: Mobility, Mobility, Mobility, Strengthening, Transfers, Stretching, ROM, Endurance, Stairs, Gait, Balance Patient needs Occupational Therapy: For a minimum of 1 hour, At least 5 out of 7 days Patient needs Occupational Therapy to improve ADL's incl.: Eating, Grooming, Bathing, Dressing, Toileting, Toilet transfers, Community Reintegration, Higher functioning activities, Household tasks, Adaptive Equipment, Splinting, Other activities as determined Patient requires speech therapy for: Swallowing, Cognition, Language Skills, Compensatory Strategies Patient requires 24/ Rehabilitation Nursing for: Pain Issues, Identifying and preventing risk factors, Monitoring and reporting current medical conditions, Assisting with ambulation, transfer, and all ADL's, Teaching patients about disease process and medications, Family teaching, Providing safe environment, Bowel and Bladder Issues, Skin integrity, Medication Management Patient needs Real Estate Manager/ Case Management for: Discharge Planning, Arranging Home Equipment or Services, Family Interventions Patient needs Dietary and Nutrition Services for: Adequate Nutrition, Nutritional Supplements, Nutritional Education Goals Patient will remain: free from falls, or injury at time of discharge. Patient will perform bed mobility at: MOD I level of assist. Patient will complete transfers from bed to chair at: MOD I level of assist. Patient will ambulate: 100 feet, with MOD I assist, with LRD Patient will complete upper body dressing at: MOD I level of assist. Patient will complete lower body dressing at: MOD I level of assist. Patient will complete toileting at: MOD I level of assist. Patient will perform bathing at: MOD I level of assist. Patient will complete grooming at: MOD I level of assist. Patient will complete home management skills at: MOD I level of assist. Patient will achieve: 12 stairs, at MOD I assist Patient will have pain level of: of 3 or less Patient's skin will: remain intact, free from infection. Patient will receive: adequate nutrition. Discharge Planning Pt Prognosis for Sig. Practical Improv. w/in Reasonable Time: Good Estimated Length of stay (days): 15 Anticipated D/C Destination: Home Was Preadmission Assessment Accurate?: Yes
[2018-03-10] MEDS: Acetaminophen 325 MG Tablet 650 MG PO ×4 (00:22→18:37)
[2018-03-10] MEDS: oxyCODONE 5 MG Tablet PO ×2 (03:43→10:40)
[2018-03-10 06:59] VITALS: O2SAT 97
[2018-03-10 09:03] VITALS: BP 128/76; PULSE 81; RESP 18; TEMP 36.7; O2SAT 94
--- NOTE | 2018-03-10 09:05 | VDLE_ITS ---
Reason For Study: LEG PAIN RIGHT LEFT GSV is normal. GSV is normal. CFV is compressible, spontaneous, phasic, CFV is compressible, spontaneous, phasic, competent and demonstrates normal competent, and demonstrates normal augmentation. augmentation. FV is compressible, spontaneous, phasic, FV is compressible, spontaneous, phasic, competent and demonstrates normal competent and demonstrates normal augmentation. augmentation. POP V is compressible, spontaneous, phasic, POP V is compressible, spontaneous, phasic, competent and demonstrates normal competent and demonstrates normal augmentation. augmentation. T/P Trunk is compressible. T/P Trunk is compressible. PTV is compressible. PTV is compressible. RT PerV is compressible. LT PerV is compressible. Procedure Exam performed portable in patient room. A preliminary report was called and/or faxed to RU nurse. Interpretation Summary Deep veins of the lower extremities are bilaterally patent and compressible segmentally. There is no evidence of deep vein thrombosis on either side. Valvular competence appears intact within the proximal deep venous systems bilaterally. The greater saphenous veins appear bilaterally patent and compressible segmentally. Ordering Physician: Diane Nevarez Referring Physician: Lazaro Moise M.D. Performed By: Elsie Stewart RVT
[2018-03-10] MEDS: Famotidine 20 MG Tablet 40 MG PO (10:40)
[2018-03-10] MEDS: Senna/Docusate Sodium 1 Tablet 2 TABLET PO ×2 (10:40→20:30)
[2018-03-10] MEDS: Folic Acid 1 MG Tablet PO (10:41)
[2018-03-10] MEDS: Iron Polysaccharide Complex 150 MG CAPSULE PO (10:41)
[2018-03-10] MEDS: Multivitamins,Ther W-Minerals Tablet 1 TABLET PO (10:41)
[2018-03-10] MEDS: Verapamil SR 180 MG CAPSULE 360 MG PO (10:41)
[2018-03-10] MEDS: Aspirin E.C. 325 MG Tablet PO ×2 (10:41→18:37)
--- NOTE | 2018-03-10 12:08 | PN.NEURO_ITS ---
Subjective: Patient seen and examined. Having pain in her left calf on flexion. Doppler obtained, was unremarkable. Patient denies any shortness of breath, or chest pains. She is tolerating therapy. No issues with GI/. - Physical Exam General: Alert, Oriented x3, Cooperative HEENT: Atraumatic, PERRLA, EOMI, Normocephalic Neck: Supple, No JVD, Negative Carotid Bruits Lungs: Clear to auscultation, Normal air movement Cardiovascular: Regular rate, No murmurs Abdomen: Bowel Sounds Present, Soft, Non Tender Extremities: No edema, Capillary Refill Less than 3 Seconds Skin: No rashes, No breakdown Musculoskeletal: No Tenderness to Palpation of Joints or Extremities Neurological: Cranial nerves II-XII grossly intact Psych/Mental Status: Normal Affect, Appropriate, Alert and oriented to time, place, person, mood and affect Vital Signs Temp Pulse Resp BP Pulse Ox 98.0 F 81 18 128/76 H 94 03/10/18 09:03 03/10/18 09:03 03/10/18 09:03 03/10/18 09:03 03/10/18 09:03 Oxygen Flow Rate (L/min) 2 Oxygen Delivery Method Room Air Weight: 114 kg Body Mass Index (BMI) 44.5 Intake and Output for Last 24 Hours 03/08/18 03/09/18 03/10/18 23:59 23:59 23:59 Intake Total 480 / 480 240 / 240 Output Total 350 / 350 150 / 150 Balance 130 / 130 90 / 90 Active Medications Acetaminophen (Tylenol) 650 mg PO Q6H [facility] Last Admin: 03/10/18 06:19 Dose: 650 mg Aspirin (Ecotrin) 325 mg PO BIDCM [facility] Last Admin: 03/10/18 10:41 Dose: 325 mg Bisacodyl (Dulcolax) 10 mg RECTAL .PRN X 1 PRN PRN Reason: Constipation Brimonidine Tartrate (Brimonidine 0.2% 5ml Bottle) 1 drop EACH EYE BID [facility] Docusate Sodium (Colace) 100 mg PO BID PRN PRN PRN Reason: Constipation Famotidine (Pepcid) 40 mg PO DAILY [facility] Last Admin: 03/10/18 10:40 Dose: 40 mg Fentanyl (Duragesic Patch) 12 mcg TRANSDERM. Q3D [facility] Last Admin: 03/09/18 17:17 Dose: 12 mcg Folic Acid (Folic Acid) 1 mg PO DAILY@0800 [facility] Last Admin: 03/10/18 10:41 Dose: 1 mg Latanoprost (Xalatan Opthalmic) 1 drop OPHTHALMIC HS [facility] Magnesium Hydroxide (Milk Of Magnesia) 30 ml PO .PRN X 1 PRN PRN Reason: Constipation Multivitamins/Minerals (Multivitamin With Minerals) 1 tablet PO DAILY@0800 [facility] Last Admin: 03/10/18 10:41 Dose: 1 tablet Oxycodone HCl (Oxyir) 5 - 10 mg PO Q4H PRN PRN PRN Reason: PAIN Last Admin: 03/10/18 10:40 Dose: 10 mg Polyethylene Glycol (Miralax) 17 gm PO DAILY PRN PRN Reason: Constipation Polysaccharide Iron Complex (Ferrex 150) 150 mg PO DAILYCM [facility] Last Admin: 03/10/18 10:41 Dose: 150 mg Promethazine HCl (Phenergan Tablet) 25 mg PO Q4H PRN PRN PRN Reason: NAUSEA Senna/Docusate Sodium (Senokot-S, Rafia-Colace) 2 tablet PO BID [facility] Last Admin: 03/10/18 10:40 Dose: 2 tablet Timolol Maleate (Timoptic) 1 drop EACH EYE BID [facility] Verapamil HCl (Calan Sr) 360 mg PO DAILY [facility] Last Admin: 03/10/18 10:41 Dose: 360 mg Medical Necessity - Tobacco Use Smoking Status: Never smoker Tobacco Use: Non-smoker Assessment/Plan Debility status post Left total knee replacement surgery. Goal of rehab is sikh of prior level of functional independence. Plan: - Physical therapy for gait and balance - Occupational Therapy for ADLs - As needed analgesics - Bowel protocol - DVT prophylaxis: BID Aspirin therapy 325mg BID, per orthopedic surgeon, Roland Saucedo - HLD - continue home dose of statin - HTN - stable => continue home medications of verapamil - Post op anemia - resolved Hgb on 07/22 was 10.7, No signs of any bleeding. - Anemia 2/2 acute blood loss following surgery, baseline hemoglobin approximately 10. Hemoglobin currently 8 -> patient placed on Ferrex - Hypokalemia => K+ 3.3, K-Dur 40 meq x 3 days recheck K+ on 4th day 07/30. - Status post left total knee arthroplasty -> incision C/D/I, well approximated , no drainage noted. - Hx: GERD-continue home famotidine regimen. - Hx: Chronic constipation-continue current bowel regimen including MiraLAX daily and senna/docusate sodium twice daily.
--- NOTE | 2018-03-10 12:39 | PN_ITS ---
Subjective: 72-year-old lady who underwent left total knee arthroplasty by Dr. Vazquez on 2017 subsequently transferred to the inpatient rehab unit to continue with her recuperation Objective: GENERAL: cooperative HEENT: Clear conjunctiva, NECK; supple, normal thyroid, CHEST: Clear to auscultation bilaterally, HEART: Regular S1 S2, no audible murmurs ABDOMEN: soft, non-tender, normoactive bowel sounds, RECTAL: deferred EXTREMITIES: No edema, no clubbing, no cyanosis. SENIOR IT SECURITY ANALYST: Awake, no lateralizing signs. SKIN: No rash Vitals/I&O's: Vital Signs Temp Pulse Resp BP Pulse Ox 98.0 F 81 18 128/76 H 94 03/10/18 09:03 03/10/18 09:03 03/10/18 09:03 03/10/18 09:03 03/10/18 09:03 Oxygen Flow Rate (L/min) 2 Oxygen Delivery Method Room Air Weight: 114 kg Body Mass Index (BMI) 44.5 Intake and Output for Last 24 Hours 03/08/18 03/09/18 03/10/18 23:59 23:59 23:59 Intake Total 480 / 480 360 / 360 Output Total 350 / 350 150 / 150 Balance 130 / 130 210 / 210 Current Medications Acetaminophen (Tylenol) 650 mg PO Q6H [facility] Last Admin: 03/10/18 06:19 Dose: 650 mg Aspirin (Ecotrin) 325 mg PO BIDCM [facility] Last Admin: 03/10/18 10:41 Dose: 325 mg Bisacodyl (Dulcolax) 10 mg RECTAL .PRN X 1 PRN PRN Reason: Constipation Docusate Sodium (Colace) 100 mg PO BID PRN PRN PRN Reason: Constipation Famotidine (Pepcid) 40 mg PO DAILY [facility] Last Admin: 03/10/18 10:40 Dose: 40 mg Fentanyl (Duragesic Patch) 12 mcg TRANSDERM. Q3D [facility] Last Admin: 03/09/18 17:17 Dose: 12 mcg Folic Acid (Folic Acid) 1 mg PO DAILY@0800 [facility] Last Admin: 03/10/18 10:41 Dose: 1 mg Magnesium Hydroxide (Milk Of Magnesia) 30 ml PO .PRN X 1 PRN PRN Reason: Constipation Multivitamins/Minerals (Multivitamin With Minerals) 1 tablet PO DAILY@0800 [facility] Last Admin: 03/10/18 10:41 Dose: 1 tablet Oxycodone HCl (Oxyir) 5 - 10 mg PO Q4H PRN PRN PRN Reason: PAIN Last Admin: 03/10/18 10:40 Dose: 10 mg Polyethylene Glycol (Miralax) 17 gm PO DAILY PRN PRN Reason: Constipation Polysaccharide Iron Complex (Ferrex 150) 150 mg PO DAILYCM [facility] Last Admin: 03/10/18 10:41 Dose: 150 mg Promethazine HCl (Phenergan Tablet) 25 mg PO Q4H PRN PRN PRN Reason: NAUSEA Senna/Docusate Sodium (Senokot-S, Rafia-Colace) 2 tablet PO BID [facility] Last Admin: 03/10/18 10:40 Dose: 2 tablet Verapamil HCl (Calan Sr) 360 mg PO DAILY [facility] Last Admin: 03/10/18 10:41 Dose: 360 mg Medical Necessity - Tobacco Use Smoking Status: Never smoker Tobacco Use: Non-smoker Assessment/Plan 72-year-old lady who underwent left total knee arthroplasty by Dr. Vazquez on 2017 subsequently transferred to the inpatient rehab unit to continue with her recuperation 1. Status post left total knee arthroplasty on 03/11/2018 2. Acute blood loss anemia following surgery monitoring H&H 3. Hypertension-blood pressure controlled, home medications continued with dose adjustment as needed 4. GERD 5. DVT prophylaxis aspirin 325 mg p.o. twice daily as recommended by Ortho Code Visit Inpatient E&M: 40022 Subs Hosp L2
--- NOTE | 2018-03-10 16:23 | CHAPLAIN ---
Type of Pastoral Visit _x__ Initial Visit ___ Follow-up Visit ___ On-call Visit ___ General Patient Visit ___ Spiritual Assessment ___ Family Conference ___ Bereavement ___ Rapid Response ___ Code Blue ___ Other (describe below) Pastoral Care Referral From _x__ Patient ___ Family ___ Nurse ___ Physician ___ Educational Programming Director ___ Studio Camera Operator ___ Other (describe below) Sacrament/Intervention _x__ Active listening ___ Anointing ___ Jewish ___ Bereavement ___ Communion ___ Desi exploration ___ ___ Life review _x__ Prayer ___ Reconciliation ___ Sacrament of Sick _x__ Supportive presence ___ Wedding ___ Other (describe below) Pastoral Comments
[2018-03-10] MEDS: Magnesium Hydroxide 30 ML UDC PO (18:36)
[2018-03-10] MEDS: BRIMONIDINE 0.2% 5ML BOTTLE 1 DRP EACH EYE (20:29)
[2018-03-10] MEDS: Timolol 0.5% 5ML OPTH.BTL 1 DRP EACH EYE (20:29)
[2018-03-10] MEDS: Latanoprost 0.005% 1 Bottle 1 DRP OPHTHALMIC (20:29)
[2018-03-10 22:00] VITALS: BP 113/53; PULSE 93; RESP 18; TEMP 36.7; O2SAT 94
[2018-03-11] MEDS: Acetaminophen 325 MG Tablet 650 MG PO ×4 (00:24→17:31)
--- NOTE | 2018-03-11 02:58 | NURSING ---
Reviewed and agree with LPNs fims and handoff
--- NOTE | 2018-03-11 05:47 | NURSING ---
c/o pain posterior left calf. Warm to touch and swollen. Will report to day nurse to inform MD.
[2018-03-11 06:30] VITALS: O2SAT 92
[2018-03-11] MEDS: oxyCODONE 5 MG Tablet PO ×2 (08:07→20:20)
[2018-03-11] MEDS: Iron Polysaccharide Complex 150 MG CAPSULE PO (08:08)
[2018-03-11] MEDS: Famotidine 20 MG Tablet 40 MG PO (08:09)
[2018-03-11] MEDS: Verapamil SR 180 MG CAPSULE 360 MG PO (08:09)
[2018-03-11] MEDS: Aspirin E.C. 325 MG Tablet PO ×2 (08:10→17:31)
[2018-03-11] MEDS: BRIMONIDINE 0.2% 5ML BOTTLE 1 DRP EACH EYE ×2 (08:10→20:22)
[2018-03-11] MEDS: Folic Acid 1 MG Tablet PO (08:10)
[2018-03-11] MEDS: Timolol 0.5% 5ML OPTH.BTL 1 DRP EACH EYE ×2 (08:11→20:21)
[2018-03-11] MEDS: Multivitamins,Ther W-Minerals Tablet 1 TABLET PO (08:17)
[2018-03-11 08:48] VITALS: BP 127/65; PULSE 79; RESP 16; TEMP 36.3; O2SAT 95
[2018-03-11 19:12] VITALS: BP 128/73; PULSE 90; RESP 20; TEMP 37.1; O2SAT 96
[2018-03-11] MEDS: Senna/Docusate Sodium 1 Tablet 2 TABLET PO (20:22)
[2018-03-11] MEDS: Latanoprost 0.005% 1 Bottle 1 DRP OPHTHALMIC (20:22)
[2018-03-12] MEDS: Acetaminophen 325 MG Tablet 650 MG PO ×3 (00:07→17:23)
[2018-03-12] MEDS: oxyCODONE 5 MG Tablet PO ×3 (01:13→21:44)
--- NOTE | 2018-03-12 01:18 | NURSING ---
Addendum entered by Aylin Alexander 03/12/18 02:05: MONEY ROOM TELLER informed nurse that pt asked him to call her mom. Pt restless and provided repeated attempts to make pt as comfortable as possible. Pt stated she was going to call family in the morning because she feels Dr. Vazquez told her he would come to see her and she is still awaiting his arrival. Original Note: pt repositioned in bed by staff. Polar Care ice changed. Pillows added under leg and then pt requested the pillows removed. Pt complained with movement to bathroom and moaned at every movement to replace polar care and scds. Staff reiterated concerns toward pt in regards to fulfilling any needs while in the room.
[2018-03-12 08:21] VITALS: BP 141/84; PULSE 89; RESP 19; TEMP 36.9; O2SAT 92
[2018-03-12] MEDS: Aspirin E.C. 325 MG Tablet PO ×2 (08:46→17:23)
[2018-03-12] MEDS: Verapamil SR 180 MG CAPSULE 360 MG PO (08:46)
[2018-03-12] MEDS: Multivitamins,Ther W-Minerals Tablet 1 TABLET PO (08:46)
[2018-03-12] MEDS: Iron Polysaccharide Complex 150 MG CAPSULE PO (08:46)
[2018-03-12] MEDS: Famotidine 20 MG Tablet 40 MG PO (08:46)
[2018-03-12] MEDS: Folic Acid 1 MG Tablet PO (08:46)
[2018-03-12] MEDS: Senna/Docusate Sodium 1 Tablet 2 TABLET PO ×2 (08:46→21:45)
[2018-03-12] MEDS: Timolol 0.5% 5ML OPTH.BTL 1 DRP EACH EYE ×2 (08:47→21:45)
[2018-03-12] MEDS: BRIMONIDINE 0.2% 5ML BOTTLE 1 DRP EACH EYE ×2 (08:52→21:45)
--- NOTE | 2018-03-12 09:09 | PN_ITS ---
Subjective: Patient complains of intermittent episodes of hallucination. Her narcotic pain regimen subsequently adjusted. Currently rating pain in her left knee at 6 out of 10. Objective: GENERAL: cooperative HEENT: Clear conjunctiva, NECK; supple, normal thyroid, CHEST: Clear to auscultation bilaterally, HEART: Regular S1 S2, no audible murmurs ABDOMEN: soft, non-tender, normoactive bowel sounds, RECTAL: deferred EXTREMITIES: No edema, no clubbing, no cyanosis. FLAT KNITTER: Awake, no lateralizing signs. SKIN: No rash Vitals/I&O's: Vital Signs Temp Pulse Resp BP Pulse Ox 98.4 F 89 19 H 141/84 H 92 03/12/18 08:21 03/12/18 08:21 03/12/18 08:21 03/12/18 08:21 03/12/18 08:21 Oxygen Flow Rate (L/min) 2 Oxygen Delivery Method Room Air Weight: 114 kg Body Mass Index (BMI) 44.5 Intake and Output for Last 24 Hours 03/10/18 03/11/18 03/12/18 23:59 23:59 23:59 Intake Total 600 / 600 410 / 410 80 / 80 Output Total 150 / 150 250 / 250 Balance 450 / 450 160 / 160 80 / 80 Current Medications Acetaminophen (Tylenol) 650 mg PO Q6H [facility] Last Admin: 03/12/18 05:55 Dose: 650 mg Aspirin (Ecotrin) 325 mg PO BIDCM [facility] Last Admin: 03/12/18 08:46 Dose: 325 mg Bisacodyl (Dulcolax) 10 mg RECTAL .PRN X 1 PRN PRN Reason: Constipation Brimonidine Tartrate (Brimonidine 0.2% 5ml Bottle) 1 drop EACH EYE BID [facility] Last Admin: 03/12/18 08:52 Dose: 1 drop Docusate Sodium (Colace) 100 mg PO BID PRN PRN PRN Reason: Constipation Famotidine (Pepcid) 40 mg PO DAILY [facility] Last Admin: 03/12/18 08:46 Dose: 40 mg Fentanyl (Duragesic Patch) 12 mcg TRANSDERM. Q3D [facility] Last Admin: 03/09/18 17:17 Dose: 12 mcg Folic Acid (Folic Acid) 1 mg PO DAILY@0800 [facility] Last Admin: 03/12/18 08:46 Dose: 1 mg Latanoprost (Xalatan Opthalmic) 1 drop OPHTHALMIC HS [facility] Last Admin: 03/11/18 20:22 Dose: 1 drop Magnesium Hydroxide (Milk Of Magnesia) 30 ml PO .PRN X 1 PRN PRN Reason: Constipation Last Admin: 03/10/18 18:36 Dose: 30 ml Multivitamins/Minerals (Multivitamin With Minerals) 1 tablet PO DAILY@0800 [facility] Last Admin: 03/12/18 08:46 Dose: 1 tablet Oxycodone HCl (Oxyir) 5 - 10 mg PO Q4H PRN PRN PRN Reason: PAIN Last Admin: 03/12/18 07:07 Dose: 10 mg Polyethylene Glycol (Miralax) 17 gm PO DAILY PRN PRN Reason: Constipation Polysaccharide Iron Complex (Ferrex 150) 150 mg PO DAILYCM [facility] Last Admin: 03/12/18 08:46 Dose: 150 mg Promethazine HCl (Phenergan Tablet) 25 mg PO Q4H PRN PRN PRN Reason: NAUSEA Senna/Docusate Sodium (Senokot-S, Rafia-Colace) 2 tablet PO BID [facility] Last Admin: 03/12/18 08:46 Dose: 2 tablet Timolol Maleate (Timoptic) 1 drop EACH EYE BID [facility] Last Admin: 03/12/18 08:47 Dose: 1 drop Verapamil HCl (Calan Sr) 360 mg PO DAILY [facility] Last Admin: 03/12/18 08:46 Dose: 360 mg Medical Necessity - Tobacco Use Smoking Status: Never smoker Tobacco Use: Non-smoker Assessment/Plan 72-year-old lady who underwent left total knee arthroplasty by Dr. Vazquez on 2017 subsequently transferred to the inpatient rehab unit to continue with her recuperation 1. Status post left total knee arthroplasty on 03/11/2018 2. Acute blood loss anemia following surgery monitoring H&H 3. Hypertension-blood pressure controlled, home medications continued with dose adjustment as needed 4. GERD 5. DVT prophylaxis aspirin 325 mg p.o. twice daily as recommended by Ortho Code Visit Inpatient E&M: 35569 Subs Hosp L2
[2018-03-12] MEDS: fentaNYL 25 MCG Patch TRANSDERM. (10:15)
[2018-03-12] MEDS: proMETHazine 25 MG Tablet PO (10:41)
[2018-03-12 16:30] VITALS: O2SAT 92
--- NOTE | 2018-03-12 16:47 | NURSING ---
prn Phenergan effective for n/v this shift, patient had medium emesis this afternoon. patient resting in bed with eyes closed.
[2018-03-12] MEDS: Latanoprost 0.005% 1 Bottle 1 DRP OPHTHALMIC (21:46)
[2018-03-12 21:56] VITALS: BP 149/67; PULSE 94; RESP 18; TEMP 36.8; O2SAT 94
[2018-03-13] MEDS: oxyCODONE 5 MG Tablet PO (04:07)
[2018-03-13] MEDS: Acetaminophen 325 MG Tablet 650 MG PO (05:45)
[2018-03-13 08:05] VITALS: BP 131/63; PULSE 89; RESP 16; TEMP 37.1; O2SAT 91
[2018-03-13] MEDS: Iron Polysaccharide Complex 150 MG CAPSULE PO (08:07)
[2018-03-13] MEDS: Verapamil SR 180 MG CAPSULE 360 MG PO (08:07)
[2018-03-13] MEDS: Folic Acid 1 MG Tablet PO (08:07)
[2018-03-13] MEDS: Famotidine 20 MG Tablet 40 MG PO (08:07)
[2018-03-13] MEDS: Multivitamins,Ther W-Minerals Tablet 1 TABLET PO (08:07)
[2018-03-13] MEDS: Senna/Docusate Sodium 1 Tablet 2 TABLET PO ×2 (08:07→21:30)
[2018-03-13] MEDS: Timolol 0.5% 5ML OPTH.BTL 1 DRP EACH EYE ×2 (08:08→21:30)
[2018-03-13] MEDS: Aspirin E.C. 325 MG Tablet PO ×2 (08:08→17:00)
[2018-03-13] MEDS: BRIMONIDINE 0.2% 5ML BOTTLE 1 DRP EACH EYE ×2 (08:09→21:30)
[2018-03-13] MEDS: Pantoprazole Sodium 20 MG Tablet PO (09:23)
--- NOTE | 2018-03-13 10:10 | PN.NEURO_ITS ---
Subjective: Patient seen and examined. Patient is very lethargic, on current Oxy IR dose, having nausea with emesis after taking medication. Will d/c oxy IR and schedule Tylenol 1,000mg Q8, start Zofran 4mg Q6 PRN for nausea. Continue Fentanyl patch at 25mcq. Will reevaluate pain levels in the AM. She is Tolerating therapy. She Denies any shortness of breath or chest pains. No issues with GI/. - Physical Exam General: Alert, Oriented x3, Cooperative HEENT: Atraumatic, PERRLA, EOMI, Normocephalic Neck: Supple, No JVD, Negative Carotid Bruits Lungs: Clear to auscultation, Normal air movement Cardiovascular: Regular rate, No murmurs Abdomen: Bowel Sounds Present, Soft, Non Tender Extremities: No edema, Capillary Refill Less than 3 Seconds Skin: No rashes, No breakdown Musculoskeletal: No Tenderness to Palpation of Joints or Extremities Neurological: Cranial nerves II-XII grossly intact Psych/Mental Status: Normal Affect, Appropriate, Alert and oriented to time, place, person, mood and affect Vital Signs Temp Pulse Resp BP Pulse Ox 98.8 F 89 16 131/63 H 91 03/13/18 08:05 03/13/18 08:05 03/13/18 08:05 03/13/18 08:05 03/13/18 08:05 Oxygen Flow Rate (L/min) 2 Oxygen Delivery Method Room Air Weight: 114 kg Body Mass Index (BMI) 44.5 Intake and Output for Last 24 Hours 03/11/18 03/12/18 03/13/18 23:59 23:59 23:59 Intake Total 410 / 410 260 / 260 240 / 240 Output Total 250 / 250 Balance 160 / 160 260 / 260 240 / 240 Active Medications Acetaminophen (Tylenol) 1,000 mg PO Q8 [facility] Admin: 03/13/18 08:08 Dose: 325 mg Bisacodyl (Dulcolax) 10 mg RECTAL .PRN X 1 PRN PRN Reason: Constipation Brimonidine Tartrate (Brimonidine 0.2% 5ml Bottle) 1 drop EACH EYE BID [facility] Last Admin: 03/13/18 08:09 Dose: 1 drop Docusate Sodium (Colace) 100 mg PO BID PRN PRN PRN Reason: Constipation Famotidine (Pepcid) 40 mg PO DAILY [facility] Last Admin: 03/13/18 08:07 Dose: 40 mg Fentanyl (Duragesic Patch) 25 mcg TRANSDERM. Q3D [facility] Last Admin: 03/12/18 10:15 Dose: 25 mcg Folic Acid (Folic Acid) 1 mg PO DAILY@0800 [facility] Last Admin: 03/13/18 08:07 Dose: 1 mg Latanoprost (Xalatan Opthalmic) 1 drop OPHTHALMIC HS [facility] Last Admin: 03/12/18 21:46 Dose: 1 drop Magnesium Hydroxide (Milk Of Magnesia) 30 ml PO .PRN X 1 PRN PRN Reason: Constipation Last Admin: 03/10/18 18:36 Dose: 30 ml Multivitamins/Minerals (Multivitamin With Minerals) 1 tablet PO DAILY@0800 [facility] Last Admin: 03/13/18 08:07 Dose: 1 tablet Nutritional Formula (Lactose Free) (Ensure Enlive) 120 ml PO 4X/DAY [facility] Last Admin: 03/13/18 08:09 Dose: Not Given Ondansetron HCl (Zofran Odt) 4 mg PO Q8H PRN PRN PRN Reason: NAUSEA Pantoprazole Sodium (Protonix) 20 mg PO DAILY [facility] Last Admin: 03/13/18 09:23 Dose: 20 mg Polyethylene Glycol (Miralax) 17 gm PO DAILY PRN PRN Reason: Constipation Polysaccharide Iron Complex (Ferrex 150) 150 mg PO DAILYCM [facility] Last Admin: 03/13/18 08:07 Dose: 150 mg Senna/Docusate Sodium (Senokot-S, Rafia-Colace) 2 tablet PO BID [facility] Last Admin: 03/13/18 08:07 Dose: 2 tablet Timolol Maleate (Timoptic) 1 drop EACH EYE BID [facility] Last Admin: 03/13/18 08:08 Dose: 1 drop Verapamil HCl (Calan Sr) 360 mg PO DAILY [facility] Last Admin: 03/13/18 08:07 Dose: 360 mg Medical Necessity - Tobacco Use Smoking Status: Never smoker Tobacco Use: Non-smoker Assessment/Plan Debility status post Left total knee replacement surgery. Goal of rehab is jain of prior level of functional independence. Plan: - Physical therapy for gait and balance - Occupational Therapy for ADLs - As needed analgesics - Bowel protocol - DVT prophylaxis: BID Aspirin therapy 325mg BID, per orthopedic surgeon, Roland Saucedo - HLD - continue home dose of statin - HTN - stable => continue home medications of verapamil - Post op anemia - resolved Hgb on 07/22 was 10.7, No signs of any bleeding. - Anemia 2/2 acute blood loss following surgery, baseline hemoglobin approximately 10. Hemoglobin currently 8 -> patient placed on Ferrex - Hypokalemia => K+ 3.3, K-Dur 40 meq x 3 days recheck K+ on day 07/30. - Status post left total knee arthroplasty -> incision C/D/I, well approximated , no drainage noted. - Hx: GERD-continue home famotidine regimen. - Hx: Chronic constipation-continue current bowel regimen including MiraLAX daily and senna/docusate sodium twice daily. - D/c Oxy IR, Schedule Tylenol 1000mg Q8 hours, start Zofran 4mg PRN for nausea , reevaluate pain level in the AM
[2018-03-13] MEDS: Acetaminophen 500 MG Tablet 1000 MG PO ×2 (13:35→21:30)
--- NOTE | 2018-03-13 16:14 | NURSING ---
dr peralta here to see patient, no new orders, will see patient next week in rehab.
--- NOTE | 2018-03-13 17:06 | VDLE_ITS ---
Reason For Study: edema RIGHT LEFT CFV is compressible, spontaneous, phasic, GSV is normal. competent and demonstrates normal CFV is compressible, spontaneous, phasic, augmentation. competent, and demonstrates normal Procedure augmentation. Exam performed portable in patient room. FV is compressible, spontaneous, phasic, The exam was diagnostic. competent and demonstrates normal A preliminary report was called and/or faxed augmentation. to the pt's RN. POP V is compressible, spontaneous, phasic, competent and demonstrates normal augmentation. T/P Trunk is compressible. PTV is compressible. LT PerV is compressible. Interpretation Summary Deep veins of the left lower extremity are patent and compressible segmentally. There is no evidence of left lower extremity deep vein thrombosis. Valvular competence appears intact within the proximal deep venous system on the left . The left greater saphenous vein appears patent and compressible segmentally. Ordering Physician: Beka Robbins Performed By: Isreal Rangel RVT
--- NOTE | 2018-03-13 17:08 | PCM.PN.HOSP ---
Subjective: complains of increasing pain and swelling in LLE. Denies f/c/SOB. Vitals/I&O's: Vital Signs Temp Pulse Resp BP Pulse Ox 37.1 C 89 16 131/63 H 91 03/13/18 08:05 03/13/18 08:05 03/13/18 08:05 03/13/18 08:05 03/13/18 08:05 Oxygen Flow Rate (L/min) 2 Oxygen Delivery Method Room Air Weight: 114 kg Body Mass Index (BMI) 44.5 Intake and Output for Last 24 Hours 03/11/18 03/12/18 03/13/18 23:59 23:59 23:59 Intake Total 410 / 410 260 / 260 240 / 240 Output Total 250 / 250 Balance 160 / 160 260 / 260 240 / 240 General: Alert, No apparent distress HEENT: Atraumatic, Normocephalic Extremities: Edema - LLE Skin: No rashes, No breakdown Psych/Mental Status: Normal Affect, Appropriate Current Medications Acetaminophen (Tylenol) 1,000 mg PO Q8 [facility] Last Admin: 03/13/18 13:35 Dose: 1,000 mg Aspirin (Ecotrin) 325 mg PO BIDCM [facility] Last Admin: 03/13/18 17:00 Dose: 325 mg Bisacodyl (Dulcolax) 10 mg RECTAL .PRN X 1 PRN PRN Reason: Constipation Brimonidine Tartrate (Brimonidine 0.2% 5ml Bottle) 1 drop EACH EYE BID [facility] Last Admin: 03/13/18 08:09 Dose: 1 drop Docusate Sodium (Colace) 100 mg PO BID PRN PRN PRN Reason: Constipation Famotidine (Pepcid) 40 mg PO DAILY [facility] Last Admin: 03/13/18 08:07 Dose: 40 mg Fentanyl (Duragesic Patch) 25 mcg TRANSDERM. Q3D [facility] Last Admin: 03/12/18 10:15 Dose: 25 mcg Folic Acid (Folic Acid) 1 mg PO DAILY@0800 [facility] Last Admin: 03/13/18 08:07 Dose: 1 mg Latanoprost (Xalatan Opthalmic) 1 drop OPHTHALMIC HS [facility] Last Admin: 03/12/18 21:46 Dose: 1 drop Magnesium Hydroxide (Milk Of Magnesia) 30 ml PO .PRN X 1 PRN PRN Reason: Constipation Last Admin: 03/10/18 18:36 Dose: 30 ml Multivitamins/Minerals (Multivitamin With Minerals) 1 tablet PO DAILY@0800 [facility] Last Admin: 03/13/18 08:07 Dose: 1 tablet Nutritional Formula (Lactose Free) (Ensure Enlive) 120 ml PO 4X/DAY [facility] Last Admin: 03/13/18 17:00 Dose: 120 ml Ondansetron HCl (Zofran Odt) 4 mg PO Q8H PRN PRN PRN Reason: NAUSEA Pantoprazole Sodium (Protonix) 20 mg PO DAILY [facility] Last Admin: 03/13/18 09:23 Dose: 20 mg Polyethylene Glycol (Miralax) 17 gm PO DAILY PRN PRN Reason: Constipation Polysaccharide [facility] ([facility] 150) [facility] Admin: 03/13/18 08:07 Dose: 150 mg Senna/Docusate Sodium (Senokot-S, Rafia-Colace) 2 tablet PO BID [facility] Last Admin: 03/13/18 08:07 Dose: 2 tablet Timolol Maleate (Timoptic) 1 drop EACH EYE BID [facility] Last Admin: 03/13/18 08:08 Dose: 1 drop Verapamil HCl (Calan Sr) 360 mg PO DAILY [facility] Last Admin: 03/13/18 08:07 Dose: 360 mg Medical Necessity - Tobacco Use Smoking Status: Never smoker Tobacco Use: Non-smoker Assessment/Plan 1. LLE swelling suspect post-operative check Duplex no s/s infection at this time Code Visit Inpatient E&M: 82588 [facility] Hosp L1
[2018-03-13 20:02] VITALS: BP 138/67; PULSE 92; RESP 19; TEMP 37.1; O2SAT 93
--- NOTE | 2018-03-13 20:43 | NURSING ---
family members with babies arrive post visiting hours. Nurse advised that visiting hours had just ended and allowed family to say hello but had to depart in respect for pt and neighboring pt. Family did not respond, even with repetition of visiting hour regulation on RU. Nurse informed pt and visitors in room of need to disband and once again, family failed to acknowledge recommendations. Family left reluctantly and nurse reinforced to pt the visiting hours including hand written copy of hours to convey via phone, considering the size of pt's family.
[2018-03-13] MEDS: Latanoprost 0.005% 1 Bottle 1 DRP OPHTHALMIC (21:30)
[2018-03-14] MEDS: Acetaminophen 500 MG Tablet 1000 MG PO ×3 (05:03→21:51)
[2018-03-14 06:17] LABS: Absolute Lymphocyte Count 2.03 X10^3/ul (0.83-4.51); Absolute Neutrophil Count 3.4 X10^3/uL (2.0-7.7); Basophil# 0.02 X10^3/uL; Basophil% 0.3 % (0-1); Eosinophil# 0.18 X10^3/uL; Eosinophils% 2.7 % (0-5); Hemoglobin 7.2 g/dl (12.0-15.0); Lymphocyte # 2.03 X10^3/ul (4.0); Lymphocyte % 30.1 % (19-41); Mean Corp Hgb Conc 31.3 g/gl (32-36); Mean Corpuscular Hgb 27.5 pg (27.0-32.0); Mean Corpuscular Volume 87.8 fL (81-99); Mean Platelet Vol. 9.4 fl (6.2-12.0); Monocyte# 0.99 X10^3/uL; Monocyte% 14.7 % (0-10); Neutrophil # 3.44 X10^3/uL (2.7-7.7); Platelet Count 353 K/mm3 (150-450); RBC Distribution Width CV 15.1 % (11.6-14.6); RBC Distribution Width SD 46.5 fl (35.1-43.9); Red Blood Count 2.62 M/mm3 (4.2-5.4); White Blood Count 6.7 K/mm3 (4.4-11.0)
[2018-03-14 06:24] LABS: Anion Gap 5 (5-15); BUN 18 mg/dL (7-18); BUN/Creat Ratio 14.6 RATIO (10-20); Calcium,Total 8.4 mg/dL (8.5-10.1); Chloride 106 mmol/L (98-107); Creatinine, Serum 1.23 mg/dL (0.55-1.02); EST Glomerular Filtration Rate 45 mL/min (>60); Est Glom Filt Rate - Afr Amer 55 mL/min (>60); Estimated Creatinine Clearance 33.19 ml/min; Glucose 86 mg/dL (74-106); Potassium 4.4 mmol/L (3.5-5.1); Sodium Level 140 mmol/L (136-145)
[2018-03-14 06:26] LABS: POSITIVE COUNT NO; POSITIVE DIFFERENTIAL NO; POSITIVE MORPHOLOGY NO
[2018-03-14 07:31] VITALS: O2SAT 91
[2018-03-14 08:20] VITALS: BP 167/80; PULSE 89; RESP 16; TEMP 36.7; O2SAT 95
[2018-03-14] MEDS: Verapamil SR 180 MG CAPSULE 360 MG PO (08:29)
[2018-03-14] MEDS: Famotidine 20 MG Tablet 40 MG PO (08:30)
[2018-03-14] MEDS: BRIMONIDINE 0.2% 5ML BOTTLE 1 DRP EACH EYE ×2 (08:30→21:53)
[2018-03-14] MEDS: Aspirin E.C. 325 MG Tablet PO ×2 (08:30→17:11)
[2018-03-14] MEDS: Multivitamins,Ther W-Minerals Tablet 1 TABLET PO (08:30)
[2018-03-14] MEDS: Senna/Docusate Sodium 1 Tablet 2 TABLET PO ×2 (08:30→21:51)
[2018-03-14] MEDS: Iron Polysaccharide Complex 150 MG CAPSULE PO (08:30)
[2018-03-14] MEDS: Pantoprazole Sodium 20 MG Tablet PO (08:30)
[2018-03-14] MEDS: Timolol 0.5% 5ML OPTH.BTL 1 DRP EACH EYE ×2 (08:30→21:51)
[2018-03-14] MEDS: Folic Acid 1 MG Tablet PO (08:30)
--- NOTE | 2018-03-14 10:54 | NURSING ---
dopplers being completed to lle
[2018-03-14 11:15] VITALS: BP 127/77; PULSE 84
--- NOTE | 2018-03-14 12:11 | NURSING ---
doppler negative per tech
--- NOTE | 2018-03-14 12:30 | NURSING ---
duragesic patch inplace to left arm
[2018-03-14] MEDS: oxyCODONE 5 MG Tablet PO ×2 (13:15→17:10)
--- NOTE | 2018-03-14 15:25 | PCM.PN.HOSP ---
Subjective: Knee feels good, but more swollen today. Vitals/I&O's: Vital Signs Temp Pulse Resp BP Pulse Ox 36.7 C 84 16 127/77 H 95 03/14/18 08:20 03/14/18 11:15 03/14/18 08:20 03/14/18 11:15 03/14/18 08:20 Oxygen Flow Rate (L/min) 2 Oxygen Delivery Method Room Air Weight: 114 kg Body Mass Index (BMI) 44.5 Intake and Output for Last 24 Hours 03/12/18 03/13/18 03/14/18 23:59 23:59 23:59 Intake Total 260 / 260 240 / 240 220 / 220 Balance 260 / 260 240 / 240 220 / 220 General: Alert, Cooperative, No apparent distress HEENT: Atraumatic, Normocephalic Neck: No Nodes, Thyroid Normal Size and Texture Abdomen: Bowel Sounds Present, Soft, Non Tender, Non-Distended, No Hepato-splenomegaly Extremities: Edema Skin: No rashes, No breakdown, - - left knee incision intact Laboratory Results 03/14/18 05:15: WBC 6.7, RBC 2.62 L, Hgb 7.2 L, Hct 23.0 L, MCV 87.8, MCH 27.5, MCHC 31.3 L, RDW 15.1 H, RDW Differential 46.5 H, Plt Count 353, MPV 9.4, Immature Gran % (Auto) 1.200 H, Neut % (Auto) 51.0, Lymph % (Auto) 30.1, [place] % (Auto) 14.7 H, Eos % (Auto) 2.7, Baso % (Auto) 0.3, Absolute Neuts (auto) 3.4, Absolute Lymphs (auto) 2.03, Total Counted Not Reportable 03/14/18 05:15: Sodium 140, Potassium 4.4, Chloride 106, Carbon Dioxide 29.0, Anion Gap 5, BUN 18, Creatinine 1.23 H, Estim Creat Clear Calc 33.19, Est GFR (MDRD) Af Amer 55 L, Est GFR (MDRD) Non-Af 45 L, BUN/Creatinine Ratio 14.6, Glucose 86, Calcium 8.4 L Current Medications Acetaminophen (Tylenol) 1,000 mg PO Q8 [facility] Last Admin: 05/01/18 15:02 Dose: 1,000 mg [facility] Last Admin: 03/14/18 08:30 Dose: 325 mg Bisacodyl (Dulcolax) 10 mg RECTAL .PRN X 1 PRN PRN Reason: Constipation Brimonidine Tartrate (Brimonidine 0.2% 5ml Bottle) 1 drop EACH EYE BID [facility] Last Admin: 03/14/18 08:30 Dose: 1 drop Docusate Sodium (Colace) 100 mg PO BID PRN PRN PRN Reason: Constipation Famotidine (Pepcid) 40 mg PO DAILY [facility] Last Admin: 03/14/18 08:30 Dose: 40 mg Fentanyl (Duragesic Patch) 25 mcg TRANSDERM. Q3D [facility] Last Admin: 03/12/18 10:15 Dose: 25 mcg Folic Acid (Folic Acid) 1 mg PO DAILY@0800 [facility] Last Admin: 03/14/18 08:30 Dose: 1 mg Latanoprost (Xalatan Opthalmic) 1 drop OPHTHALMIC HS [facility] Last Admin: 03/13/18 21:30 Dose: 1 drop Magnesium Hydroxide (Milk Of Magnesia) 30 ml PO .PRN X 1 PRN PRN Reason: Constipation Last Admin: 03/10/18 18:36 Dose: 30 ml Multivitamins/Minerals (Multivitamin With Minerals) 1 tablet PO DAILY@0800 [facility] Last Admin: 03/14/18 08:30 Dose: 1 tablet Nutritional Formula (Lactose Free) (Ensure Enlive) 120 ml PO 4X/DAY [facility] Last Admin: 03/14/18 15:02 Dose: 120 ml Ondansetron HCl (Zofran Odt) 4 mg PO Q8H PRN PRN PRN Reason: NAUSEA Pantoprazole Sodium (Protonix) 20 mg PO DAILY [facility] Last Admin: 03/14/18 08:30 Dose: 20 mg Polyethylene Glycol (Miralax) 17 gm PO DAILY PRN PRN Reason: Constipation Polysaccharide Iron Complex (Ferrex 150) [facility] Last Admin: 03/14/18 08:30 Dose: 150 mg Senna/Docusate Sodium (Senokot-S, Rafia-Colace) 2 tablet PO BID [facility] Last Admin: 03/14/18 08:30 Dose: 2 tablet Timolol Maleate (Timoptic) 1 drop EACH EYE BID [facility] Last Admin: 03/14/18 08:30 Dose: 1 drop Verapamil HCl (Calan Sr) 360 mg PO DAILY [facility] Last Admin: 03/14/18 08:29 Dose: 360 mg Medical Necessity - Tobacco Use Smoking Status: Never smoker Tobacco Use: Non-smoker Assessment/Plan 1. LLE swelling suspect post-operative no s/s infection at this time Duplex negative. no evidence of cellulitis nor septic arthritis 2. Acute blood loss anemia continue to monitor on iron 3. DVT proph on aspirin per orthopaedics. Code Visit Inpatient E&M: 95375 Subs Hosp L1
--- NOTE | 2018-03-14 15:30 | PN_ITS ---
Subjective: Knee feels good, but more swollen today. Vitals/I&O's: Vital Signs Temp Pulse Resp BP Pulse Ox 36.7 C 84 16 127/77 H 95 03/14/18 08:20 03/14/18 11:15 03/14/18 08:20 03/14/18 11:15 03/14/18 08:20 Oxygen Flow Rate (L/min) 2 Oxygen Delivery Method Room Air Weight: 114 kg Body Mass Index (BMI) 44.5 Intake and Output for Last 24 Hours 03/12/18 03/13/18 03/14/18 23:59 23:59 23:59 Intake Total 260 / 260 240 / 240 220 / 220 Balance 260 / 260 240 / 240 220 / 220 General: Alert, Cooperative, No apparent distress HEENT: Atraumatic, Normocephalic Neck: No Nodes, Thyroid Normal Size and Texture Abdomen: Bowel Sounds Present, Soft, Non Tender, Non-Distended, No Hepato- splenomegaly Extremities: Edema Skin: No rashes, No breakdown, - - left knee incision intact Laboratory Results 03/14/18 05:15: WBC 6.7, RBC 2.62 L, Hgb 7.2 L, Hct 23.0 L, MCV 87.8, MCH 27.5, MCHC 31.3 L, RDW 15.1 H, RDW Differential 46.5 H, Plt Count 353, MPV 9.4, Immature Gran % (Auto) 1.200 H, Neut % (Auto) 51.0, Lymph % (Auto) 30.1, [place] % (Auto) 14.7 H, Eos % (Auto) 2.7, Baso % (Auto) 0.3, Absolute Neuts (auto) 3.4, Absolute Lymphs (auto) 2.03, Total Counted Not Reportable 03/14/18 05:15: Sodium 140, Potassium 4.4, Chloride 106, Carbon Dioxide 29.0, Anion Gap 5, BUN 18, Creatinine 1.23 H, Estim Creat Clear Calc 33.19, Est GFR ( MDRD) Af Amer 55 L, Est GFR (MDRD) Non-Af 45 L, BUN/Creatinine Ratio 14.6, Glucose 86, Calcium 8.4 L Current Medications Acetaminophen (Tylenol) 1,000 mg PO Q8 [facility] Last Admin: 05/01/18 15:02 Dose: 1,000 mg [facility]) [facility] Last Admin: 03/14/18 08:30 Dose: 325 mg Bisacodyl (Dulcolax) 10 mg RECTAL .PRN X 1 PRN PRN Reason: Constipation Brimonidine Tartrate (Brimonidine 0.2% 5ml Bottle) 1 drop EACH EYE BID [facility] Last Admin: 03/14/18 08:30 Dose: 1 drop Docusate Sodium (Colace) 100 mg PO BID PRN PRN PRN Reason: Constipation Famotidine (Pepcid) 40 mg PO DAILY [facility] Last Admin: 03/14/18 08:30 Dose: 40 mg Fentanyl (Duragesic Patch) 25 mcg TRANSDERM. Q3D [facility] Last Admin: 03/12/18 10:15 Dose: 25 mcg Folic Acid (Folic Acid) 1 mg PO DAILY@0800 [facility] Last Admin: 03/14/18 08:30 Dose: 1 mg Latanoprost (Xalatan Opthalmic) 1 drop OPHTHALMIC HS [facility] Last Admin: 03/13/18 21:30 Dose: 1 drop Magnesium Hydroxide (Milk Of Magnesia) 30 ml PO .PRN X 1 PRN PRN Reason: Constipation Last Admin: 03/10/18 18:36 Dose: 30 ml Multivitamins/Minerals (Multivitamin With Minerals) 1 tablet PO DAILY@0800 [facility] Last Admin: 03/14/18 08:30 Dose: 1 tablet Nutritional Formula (Lactose Free) (Ensure Enlive) 120 ml PO 4X/DAY [facility] Last Admin: 03/14/18 15:02 Dose: 120 ml Ondansetron HCl (Zofran Odt) 4 mg PO Q8H PRN PRN PRN Reason: NAUSEA Pantoprazole Sodium (Protonix) 20 mg PO DAILY [facility] Last Admin: 03/14/18 08:30 Dose: 20 mg Polyethylene Glycol (Miralax) 17 gm PO DAILY PRN PRN Reason: Constipation Polysaccharide Iron Complex (Ferrex 150) [facility] Last Admin: 03/14/18 08:30 Dose: 150 mg Senna/Docusate Sodium (Senokot-S, Rafia-Colace) 2 tablet PO BID [facility] Last Admin: 03/14/18 08:30 Dose: 2 tablet Timolol Maleate (Timoptic) 1 drop EACH EYE BID [facility] Last Admin: 03/14/18 08:30 Dose: 1 drop Verapamil HCl (Calan Sr) 360 mg PO DAILY [facility] Last Admin: 03/14/18 08:29 Dose: 360 mg Medical Necessity - Tobacco Use Smoking Status: Never smoker Tobacco Use: Non-smoker Assessment/Plan 1. LLE swelling * suspect post-operative * no s/s infection at this time * Duplex negative. * no evidence of cellulitis nor septic arthritis 2. Acute blood loss anemia * continue to monitor * on iron 3. DVT proph * on aspirin per orthopaedics. Code Visit Inpatient E&M: 97536 Subs Hosp L1
--- NOTE | 2018-03-14 18:20 | NURSING ---
Dr. Robbins notified by text hgb 7.2 added iron bid, Dr. Robbins here to see pt.
[2018-03-14 19:22] VITALS: BP 151/65; PULSE 90; RESP 18; TEMP 36.6; O2SAT 97
--- NOTE | 2018-03-14 21:28 | NURSING ---
assisted with reposition and bed rail for comfort, blinds closed and personal belongings within reach, lights dimmed per patient preference, denies additional needs at this time. alycia
[2018-03-14] MEDS: Latanoprost 0.005% 1 Bottle 1 DRP OPHTHALMIC (21:50)
--- NOTE | 2018-03-15 00:10 | NURSING ---
c/o discomfort in positioning, repositioned and relates feels comfortable physically but feels as though she is falling. RN aware, went in to recheck and she is sleeping peacefully at this time. alycia
--- NOTE | 2018-03-15 00:47 | NURSING ---
PT C/O UNABLE TO GET TO SLEEP. PT ASSISTED TO BR TO URINATE AND THEN OFFERED TO TRY SLEEPING IN RECLINER WHICH PT AGREES. PT DENIES PAIN. PT IS APPRECIATIVE OF STAFF HELP.
[2018-03-15] MEDS: Acetaminophen 500 MG Tablet 1000 MG PO ×3 (05:24→21:52)
--- NOTE | 2018-03-15 05:35 | NURSING ---
0445 pt rings to use the toilet and staff assists with getting pt up oob. staff explained to pt about trying a different bed to make her more comfortable, and pt responded why did the doctor say i had to? staff explained to pt that we were trying to get her more comfortable at night so that she can sleep, but she didn't have to change her bed if she didn't want to. rn made aware pt question and went to talk with her about then bed and making her more comfortable at night [id number] staff switched out beds in pt room
--- NOTE | 2018-03-15 05:59 | NURSING ---
PT C/O L ALEXYS WRAP TOO TIGHT TO LLE. ALEXYS LOOSENED WITH RELIEF.
[2018-03-15 06:00] LABS: Absolute Lymphocyte Count 2.07 X10^3/ul (0.83-4.51); Absolute Neutrophil Count 3.5 X10^3/uL (2.0-7.7); Basophil# 0.02 X10^3/uL; Basophil% 0.3 % (0-1); Eosinophil# 0.23 X10^3/uL; Eosinophils% 3.4 % (0-5); Hematocrit 26.3 % (37-47); Lymphocyte # 2.07 X10^3/ul (4.0); Lymphocyte % 30.4 % (19-41); Mean Corp Hgb Conc 30.4 g/gl (32-36); Mean Corpuscular Hgb 26.5 pg (27.0-32.0); Mean Corpuscular Volume 87.1 fL (81-99); Mean Platelet Vol. 8.8 fl (6.2-12.0); Monocyte# 0.89 X10^3/uL; Monocyte% 13.1 % (0-10); Neutrophil # 3.52 X10^3/uL (2.7-7.7); Neutrophil % 51.8 % (47-70); Platelet Count 404 K/mm3 (150-450); RBC Distribution Width CV 15.8 % (11.6-14.6); RBC Distribution Width SD 50.4 fl (35.1-43.9); Red Blood Count 3.02 M/mm3 (4.2-5.4); White Blood Count 6.8 K/mm3 (4.4-11.0)
[2018-03-15 06:10] LABS: POSITIVE COUNT NO; POSITIVE DIFFERENTIAL NO; POSITIVE MORPHOLOGY NO
[2018-03-15] MEDS: oxyCODONE 5 MG Tablet PO ×2 (07:19→19:36)
--- NOTE | 2018-03-15 07:21 | NURSING ---
PT SAYING THAT SOMEONE WAS YELLING AT HER DURING NIGHT AND TOLD HER THAT THE PATCH ON HER LEFT ARM WAS FOR HER BLOOD PRESSURE. PT ASSURED THAT THE PATCH ON ARM IS FOR PAIN. PT ALSO IS CONVINCED THAT A MEDICATION SHE RECEIVED DURING THE NIGHT MADE HER HANDS JUMP DURING THE NIGHT AND ALMOST CAUSED HER PHONE TO JUMP OUT OF HER HANDS. REVIEWED WITH PT THE MEDICATIONS SHE RECEIVED DURING THE NIGHT. PT PROVIDED SALTINE CRACKERS AND SPRITE THIS AM TO TAKE WITH HER PAIN PILL. DENIES NAUSEA AT THIS TIME.
[2018-03-15 07:39] VITALS: BP 155/92; PULSE 85; RESP 17; TEMP 36.6; O2SAT 99
[2018-03-15] MEDS: Famotidine 20 MG Tablet 40 MG PO (08:15)
[2018-03-15] MEDS: Pantoprazole Sodium 20 MG Tablet PO (08:16)
[2018-03-15] MEDS: Verapamil SR 180 MG CAPSULE 360 MG PO (08:16)
[2018-03-15] MEDS: Iron Polysaccharide Complex 150 MG CAPSULE PO (09:19)
[2018-03-15] MEDS: Aspirin E.C. 325 MG Tablet PO ×2 (09:19→18:16)
[2018-03-15] MEDS: Multivitamins,Ther W-Minerals Tablet 1 TABLET PO (09:19)
[2018-03-15] MEDS: Folic Acid 1 MG Tablet PO (09:20)
[2018-03-15] MEDS: Senna/Docusate Sodium 1 Tablet 2 TABLET PO ×2 (09:21→21:52)
--- NOTE | 2018-03-15 10:32 | PCM.PN.NEU ---
Subjective: Patient seen doing Occupational therapy session. Did not sleep very well during the night, low dose Ativan for insomnia at bedtime. Tolerating therapy. Denies any shortness of breath or chest pain. No issues with GI/. - Physical Exam General: Alert, Oriented x3, Cooperative HEENT: Atraumatic, PERRLA, EOMI, Normocephalic Neck: Supple, No JVD, Negative Carotid Bruits Lungs: Clear to auscultation, Normal air movement Cardiovascular: Regular rate, No murmurs Abdomen: Bowel Sounds Present, Soft, Non Tender Extremities: No edema, Capillary Refill Less than 3 Seconds Skin: No rashes, No breakdown Musculoskeletal: No Tenderness to Palpation of Joints or Extremities Neurological: Cranial nerves II-XII grossly intact Psych/Mental Status: Normal Affect, Appropriate, Alert and oriented to time, place, person, mood and affect Vital Signs Temp Pulse Resp BP Pulse Ox 97.8 F 85 17 155/92 H 99 03/15/18 07:39 03/15/18 07:39 03/15/18 07:39 03/15/18 07:39 03/15/18 07:39 Oxygen Flow Rate (L/min) 2 Oxygen Delivery Method Room Air Weight: 117.6 kg Body Mass Index (BMI) 44.5 Intake and Output for Last 24 Hours 03/13/18 03/14/18 03/15/18 23:59 23:59 23:59 Intake Total 240 / 240 220 / 220 120 / 120 Balance 240 / 240 220 / 220 120 / 120 Laboratory Tests Past 24 Hrs 03/15/18 05:20 WBC 6.8 RBC 3.02 L Hgb 8.0 L Hct 26.3 L MCV 87.1 MCH 26.5 L MCHC 30.4 L RDW 15.8 H RDW Differential 50.4 H Plt Count 404 MPV 8.8 Immature Gran % (Auto) 1.000 H Neut % (Auto) 51.8 Lymph % (Auto) 30.4 [place] % (Auto) 13.1 H Eos % (Auto) 3.4 Baso % (Auto) 0.3 Absolute Neuts (auto) 3.5 Absolute Lymphs (auto) 2.07 Total Counted Not Reportable Active Medications Acetaminophen (Tylenol) 1,000 mg PO Q8 [facility] Last Admin: 03/15/18 05:24 Dose: 1,000 mg [facility] Last Admin: 03/15/18 09:19 Dose: 325 mg Bisacodyl (Dulcolax) 10 mg RECTAL .PRN X 1 PRN PRN Reason: Constipation Brimonidine Tartrate (Brimonidine 0.2% 5ml Bottle) 1 drop EACH EYE BID [facility] Last Admin: 03/14/18 21:53 Dose: 1 drop Docusate Sodium (Colace) 100 mg PO BID PRN PRN PRN Reason: Constipation Famotidine (Pepcid) 40 mg PO DAILY [facility] Last Admin: 03/15/18 08:15 Dose: 40 mg Fentanyl (Duragesic Patch) 25 mcg TRANSDERM. Q3D [facility] Last Admin: 03/12/18 10:15 Dose: 25 mcg Folic Acid (Folic Acid) 1 mg PO DAILY@0800 [facility] Last Admin: 03/15/18 09:20 Dose: 1 mg Latanoprost (Xalatan Opthalmic) 1 drop OPHTHALMIC HS [facility] Last Admin: 03/14/18 21:50 Dose: 1 drop Lorazepam (Ativan) 0.5 mg PO QHS PRN PRN PRN Reason: INSOMNIA Magnesium Hydroxide (Milk Of Magnesia) 30 ml PO .PRN X 1 PRN PRN Reason: Constipation Last Admin: 03/10/18 18:36 Dose: 30 ml Multivitamins/Minerals (Multivitamin With Minerals) 1 tablet PO DAILY@0800 [facility] Last Admin: 03/15/18 09:19 Dose: 1 tablet Nutritional Formula (Lactose Free) (Ensure Enlive) 120 ml PO 4X/DAY [facility] Last Admin: 03/15/18 09:21 Dose: Not Given Ondansetron HCl (Zofran Odt) 4 mg PO Q8H PRN PRN PRN Reason: NAUSEA Oxycodone HCl (Oxyir) 5 mg PO Q4H PRN PRN PRN Reason: SEVERE PAIN (6-10/10) Last Admin: 03/15/18 07:19 Dose: 5 mg Pantoprazole Sodium (Protonix) 20 mg PO DAILY [facility] Last Admin: 03/15/18 08:16 Dose: 20 mg Polyethylene Glycol (Miralax) 17 gm PO DAILY PRN PRN Reason: Constipation Polysaccharide Iron Complex (Ferrex 150) [facility] Last Admin: 03/15/18 09:19 Dose: 150 mg Senna/Docusate Sodium (Senokot-S, Rafia-Colace) 2 tablet PO BID [facility] Last Admin: 03/15/18 09:21 Dose: 2 tablet Timolol Maleate (Timoptic) 1 drop EACH EYE BID [facility] Last Admin: 03/14/18 21:51 Dose: 1 drop Verapamil HCl (Calan Sr) 360 mg PO DAILY [facility] Last Admin: 03/15/18 08:16 Dose: 360 mg Medical Necessity - Tobacco Use Smoking Status: Never smoker Tobacco Use: Non-smoker Assessment/Plan Debility status post Left total knee replacement surgery. Goal of rehab is pentecostal of prior level of functional independence. Plan: - Physical therapy for gait and balance - Occupational Therapy for ADLs - As needed analgesics - Bowel protocol - DVT prophylaxis: BID Aspirin therapy 325mg BID, per orthopedic surgeon, Roland Saucedo - HLD - continue home dose of statin - HTN - stable => continue home medications of verapamil - Post op anemia - resolved Hgb on 07/22 was 10.7, No signs of any bleeding. - Anemia 2/2 acute blood loss following surgery, baseline hemoglobin approximately 10. Hemoglobin currently 8 -> patient placed on Ferrex - Hypokalemia => K+ 3.3, K-Dur 40 meq x 3 days recheck K+ on day 07/30. - Status post left total knee arthroplasty -> incision C/D/I, well approximated, no drainage noted. - Hx: GERD-continue home famotidine regimen. - Hx: Chronic constipation-continue current bowel regimen including MiraLAX daily and senna/docusate sodium twice daily. - D/c Oxy IR, Schedule Tylenol 1000mg Q8 hours, start Zofran 4mg PRN for nausea, reevaluate pain level in the AM - Low dose of Oxy IR, with schedule Tylenol - Insomnia -> Ativan 0.5mg at HS
--- NOTE | 2018-03-15 10:37 | PN.NEURO_ITS ---
Subjective: Patient seen doing Occupational therapy session. Did not sleep very well during the night, low dose Ativan for insomnia at bedtime. Tolerating therapy. Denies any shortness of breath or chest pain. No issues with GI/. - Physical Exam General: Alert, Oriented x3, Cooperative HEENT: Atraumatic, PERRLA, EOMI, Normocephalic Neck: Supple, No JVD, Negative Carotid Bruits Lungs: Clear to auscultation, Normal air movement Cardiovascular: Regular rate, No murmurs Abdomen: Bowel Sounds Present, Soft, Non Tender Extremities: No edema, Capillary Refill Less than 3 Seconds Skin: No rashes, No breakdown Musculoskeletal: No Tenderness to Palpation of Joints or Extremities Neurological: Cranial nerves II-XII grossly intact Psych/Mental Status: Normal Affect, Appropriate, Alert and oriented to time, place, person, mood and affect Vital Signs Temp Pulse Resp BP Pulse Ox 97.8 F 85 17 155/92 H 99 03/15/18 07:39 03/15/18 07:39 03/15/18 07:39 03/15/18 07:39 03/15/18 07:39 Oxygen Flow Rate (L/min) 2 Oxygen Delivery Method Room Air Weight: 117.6 kg Body Mass Index (BMI) 44.5 Intake and Output for Last 24 Hours 03/13/18 03/14/18 03/15/18 23:59 23:59 23:59 Intake Total 240 / 240 220 / 220 120 / 120 Balance 240 / 240 220 / 220 120 / 120 Laboratory Tests Past 24 Hrs 03/15/18 05:20 WBC 6.8 RBC 3.02 L Hgb 8.0 L Hct 26.3 L MCV 87.1 MCH 26.5 L MCHC 30.4 L RDW 15.8 H RDW Differential 50.4 H Plt Count 404 MPV 8.8 Immature Gran % (Auto) 1.000 H Neut % (Auto) 51.8 Lymph % (Auto) 30.4 [place] % (Auto) 13.1 H Eos % (Auto) 3.4 Baso % (Auto) 0.3 Absolute Neuts (auto) 3.5 Absolute Lymphs (auto) 2.07 Total Counted Not Reportable Active Medications Acetaminophen (Tylenol) 1,000 mg PO Q8 [facility] Last Admin: 03/15/18 05:24 Dose: 1,000 mg [facility] ([facility]) [facility] Last Admin: 03/15/18 09:19 Dose: 325 mg Bisacodyl (Dulcolax) 10 mg RECTAL .PRN X 1 PRN PRN Reason: Constipation Brimonidine Tartrate (Brimonidine 0.2% 5ml Bottle) 1 drop EACH EYE BID [facility] Last Admin: 03/14/18 21:53 Dose: 1 drop Docusate Sodium (Colace) 100 mg PO BID PRN PRN PRN Reason: Constipation Famotidine (Pepcid) 40 mg PO DAILY [facility] Last Admin: 03/15/18 08:15 Dose: 40 mg Fentanyl (Duragesic Patch) 25 mcg TRANSDERM. Q3D [facility] Last Admin: 03/12/18 10:15 Dose: 25 mcg Folic Acid (Folic Acid) 1 mg PO DAILY@0800 [facility] Last Admin: 03/15/18 09:20 Dose: 1 mg Latanoprost (Xalatan Opthalmic) 1 drop OPHTHALMIC HS [facility] Last Admin: 03/14/18 21:50 Dose: 1 drop Lorazepam (Ativan) 0.5 mg PO QHS PRN PRN PRN Reason: INSOMNIA Magnesium Hydroxide (Milk Of Magnesia) 30 ml PO .PRN X 1 PRN PRN Reason: Constipation Last Admin: 03/10/18 18:36 Dose: 30 ml Multivitamins/Minerals (Multivitamin With Minerals) 1 tablet PO DAILY@0800 [facility] Last Admin: 03/15/18 09:19 Dose: 1 tablet Nutritional Formula (Lactose Free) (Ensure Enlive) 120 ml PO 4X/DAY [facility] Last Admin: 03/15/18 09:21 Dose: Not Given Ondansetron HCl (Zofran Odt) 4 mg PO Q8H PRN PRN PRN Reason: NAUSEA Oxycodone HCl (Oxyir) 5 mg PO Q4H PRN PRN PRN Reason: SEVERE PAIN (6-10/10) Last Admin: 03/15/18 07:19 Dose: 5 mg Pantoprazole Sodium (Protonix) 20 mg PO DAILY [facility] Last Admin: 03/15/18 08:16 Dose: 20 mg Polyethylene Glycol (Miralax) 17 gm PO DAILY PRN PRN Reason: Constipation Polysaccharide Iron Complex (Ferrex 150) [facility] Last Admin: 03/15/18 09:19 Dose: 150 mg Senna/Docusate Sodium (Senokot-S, Rafia-Colace) 2 tablet PO BID [facility] Last Admin: 03/15/18 09:21 Dose: 2 tablet Timolol Maleate (Timoptic) 1 drop EACH EYE BID [facility] Last Admin: 03/14/18 21:51 Dose: 1 drop Verapamil HCl (Calan Sr) 360 mg PO DAILY [facility] Last Admin: 03/15/18 08:16 Dose: 360 mg Medical Necessity - Tobacco Use Smoking Status: Never smoker Tobacco Use: Non-smoker Assessment/Plan Debility status post Left total knee replacement surgery. Goal of rehab is orthodoxy of prior level of functional independence. Plan: - Physical therapy for gait and balance - Occupational Therapy for ADLs - As needed analgesics - Bowel protocol - DVT prophylaxis: BID Aspirin therapy 325mg BID, per orthopedic surgeon, Roland Saucedo - HLD - continue home dose of statin - HTN - stable => continue home medications of verapamil - Post op anemia - resolved Hgb on 07/22 was 10.7, No signs of any bleeding. - Anemia 2/2 acute blood loss following surgery, baseline hemoglobin approximately 10. Hemoglobin currently 8 -> patient placed on Ferrex - Hypokalemia => K+ 3.3, K-Dur 40 meq x 3 days recheck K+ on day 07/30. - Status post left total knee arthroplasty -> incision C/D/I, well approximated , no drainage noted. - Hx: GERD-continue home famotidine regimen. - Hx: Chronic constipation-continue current bowel regimen including MiraLAX daily and senna/docusate sodium twice daily. - D/c Oxy IR, Schedule Tylenol 1000mg Q8 hours, start Zofran 4mg PRN for nausea , reevaluate pain level in the AM - Low dose of Oxy IR, with schedule Tylenol - Insomnia -> Ativan 0.5mg at HS
[2018-03-15] MEDS: Timolol 0.5% 5ML OPTH.BTL 1 DRP EACH EYE ×2 (11:10→21:52)
[2018-03-15] MEDS: fentaNYL 25 MCG Patch TRANSDERM. (11:10)
[2018-03-15] MEDS: BRIMONIDINE 0.2% 5ML BOTTLE 1 DRP EACH EYE ×2 (11:10→21:53)
--- NOTE | 2018-03-15 11:40 | NURSING ---
Dr. Mckenna present and assessed patient. This nurse placed on new duragesic patch per order and approx 2 minutes later patient called this nurse back over to her and reported she had the shakes and did not feel right. This nurse removed the patch and visible shaking noted to head and hands. Will monitor.
--- NOTE | 2018-03-15 12:00 | NURSING ---
NO further shaking noted and patient did not voice any concerns or any abnormal feelings as earlier. Patient reported she does not usually take pain medicine and is sensitive.
[2018-03-15 19:30] VITALS: BP 144/68; PULSE 81; RESP 16; TEMP 36.6; O2SAT 97
[2018-03-15] MEDS: Latanoprost 0.005% 1 Bottle 1 DRP OPHTHALMIC (21:51)
[2018-03-16] MEDS: oxyCODONE 5 MG Tablet PO ×4 (04:43→22:45)
[2018-03-16] MEDS: Acetaminophen 500 MG Tablet 1000 MG PO ×3 (07:12→21:31)
[2018-03-16 07:41] VITALS: BP 164/69; PULSE 90; RESP 18; TEMP 36.5; O2SAT 98
[2018-03-16] MEDS: Senna/Docusate Sodium 1 Tablet 2 TABLET PO ×2 (07:47→21:31)
[2018-03-16] MEDS: Famotidine 20 MG Tablet 40 MG PO (07:47)
[2018-03-16] MEDS: Verapamil SR 180 MG CAPSULE 360 MG PO (07:47)
[2018-03-16] MEDS: Pantoprazole Sodium 20 MG Tablet PO (07:47)
[2018-03-16] MEDS: Timolol 0.5% 5ML OPTH.BTL 1 DRP EACH EYE ×2 (07:47→21:29)
[2018-03-16] MEDS: Multivitamins,Ther W-Minerals Tablet 1 TABLET PO (07:48)
[2018-03-16] MEDS: Iron Polysaccharide Complex 150 MG CAPSULE PO (07:48)
[2018-03-16] MEDS: Aspirin E.C. 325 MG Tablet PO ×2 (07:48→15:59)
[2018-03-16] MEDS: Folic Acid 1 MG Tablet PO (07:48)
[2018-03-16] MEDS: BRIMONIDINE 0.2% 5ML BOTTLE 1 DRP EACH EYE ×2 (07:54→21:28)
--- NOTE | 2018-03-16 10:12 | PCM.PN.NEU ---
Subjective: Staffed in team meeting. Granddaughter at bedside. With Physical therapy, she is stand by assistance for mobility getting in and out of bed, and going from a sitting to a standing position. She is able to walk about 165 feet with a walker at stand by assist. she has been able to go up and down two steps at contact guard. Her range of motion is still limited at 82 degrees of flexion as of last week. With Occupational therapy, she is supervision for bathing and all her personal care. she does require some help with getting her sock and shoe on her left foot, she is able to get it on her right foot with out any problems. With Nursing she continues to have issues with pain, will continue the Oxy IR and increase the dosage, schedule her Tylenol along with it, will get a Sed rate for possible infection. Her ESR was 87, will let Dr. Vazquez know about her increase pain and her elevated ESR. She is also having frequent urinary which is not new for her, she was scheduled to see a Urology after her surgery, will set this up and in the meantime will start her on Detrol 2mg daily. - Physical Exam General: Alert, Oriented x3, Cooperative HEENT: Atraumatic, PERRLA, EOMI, Normocephalic Neck: Supple, No JVD, Negative Carotid Bruits Lungs: Clear to auscultation, Normal air movement Cardiovascular: Regular rate, No murmurs Abdomen: Bowel Sounds Present, Soft, Non Tender Extremities: No edema, Capillary Refill Less than 3 Seconds Skin: No rashes, No breakdown Musculoskeletal: No Tenderness to Palpation of Joints or Extremities Neurological: Cranial nerves II-XII grossly intact Psych/Mental Status: Normal Affect, Appropriate, Alert and oriented to time, place, person, mood and affect Vital Signs Temp Pulse Resp BP Pulse Ox 97.7 F L 90 18 164/69 H 98 03/16/18 07:41 03/16/18 07:41 03/16/18 07:41 03/16/18 07:41 03/16/18 07:41 Oxygen Flow Rate (L/min) 2 Oxygen Delivery Method Room Air Weight: 117.6 kg Body Mass Index (BMI) 44.5 Intake and Output for Last 24 Hours 03/14/18 03/15/18 03/16/18 23:59 23:59 23:59 Intake Total 220 / 220 480 / 480 Balance 220 / 220 480 / 480 Active Medications Acetaminophen (Tylenol) 1,000 mg PO Q8 [facility] Last Admin: 03/16/18 07:12 Dose: 1,000 mg [facility] Last Admin: 03/16/18 07:48 Dose: 325 mg Bisacodyl (Dulcolax) 10 mg RECTAL .PRN X 1 PRN PRN Reason: Constipation Brimonidine Tartrate (Brimonidine 0.2% 5ml Bottle) 1 drop EACH EYE BID [facility] Last Admin: 03/16/18 07:54 Dose: 1 drop Docusate Sodium (Colace) 100 mg PO BID PRN PRN PRN Reason: Constipation Famotidine (Pepcid) 40 mg PO DAILY [facility] Last Admin: 03/16/18 07:47 Dose: 40 mg Folic Acid (Folic Acid) 1 mg PO DAILY@0800 [facility] Last Admin: 03/16/18 07:48 Dose: 1 mg Latanoprost (Xalatan Opthalmic) 1 drop OPHTHALMIC [facility] Last Admin: 03/15/18 21:51 Dose: 1 drop Lorazepam (Ativan) 0.5 mg PO QHS PRN PRN PRN Reason: INSOMNIA Magnesium Hydroxide (Milk Of Magnesia) 30 ml PO .PRN X 1 PRN PRN Reason: Constipation Last Admin: 03/10/18 18:36 Dose: 30 ml Multivitamins/Minerals (Multivitamin With Minerals) 1 tablet PO DAILY@0800 [facility] Last Admin: 03/16/18 07:48 Dose: 1 tablet Ondansetron HCl (Zofran Odt) 4 mg PO Q8H PRN PRN PRN Reason: NAUSEA Oxycodone HCl (Oxyir) 5 mg PO Q4H PRN PRN PRN Reason: SEVERE PAIN (6-10/10) Last Admin: 03/16/18 09:34 Dose: 5 mg Pantoprazole Sodium (Protonix) 20 mg PO DAILY [facility] Last Admin: 03/16/18 07:47 Dose: 20 mg Polyethylene Glycol (Miralax) 17 gm PO DAILY PRN PRN Reason: Constipation Polysaccharide [facility] (Ferrex 150) [facility] Last Admin: 03/16/18 07:48 Dose: 150 mg Senna/Docusate Sodium (Senokot-S, Rafia-Colace) 2 tablet PO BID [facility] Last Admin: 03/16/18 07:47 Dose: 2 tablet Timolol Maleate (Timoptic) 1 drop EACH EYE BID [facility] Last Admin: 03/16/18 07:47 Dose: 1 drop Tolterodine Tartrate (Detrol La) 2 mg PO DAILY [facility] Verapamil HCl (Calan Sr) 360 mg PO DAILY [facility] Last Admin: 03/16/18 07:47 Dose: 360 mg Medical Necessity - Tobacco Use Smoking Status: Never smoker Tobacco Use: Non-smoker Assessment/Plan Debility status post Left total knee replacement surgery. Goal of rehab is mandaen of prior level of functional independence. Plan: - Physical therapy for gait and balance - Occupational Therapy for ADLs - As needed analgesics - Bowel protocol - DVT prophylaxis: BID Aspirin therapy 325mg BID, per orthopedic surgeon, Roland Saucedo - HLD - continue home dose of statin - HTN - stable => continue home medications of verapamil - Post op anemia - resolved Hgb on 07/22 was 10.7, No signs of any bleeding. - Anemia 2/2 acute blood loss following surgery, baseline hemoglobin approximately 10. Hemoglobin currently 8 -> patient placed on Ferrex - Hypokalemia => K+ 3.3, K-Dur 40 meq x 3 days recheck K+ on day 07/30. - Status post left total knee arthroplasty -> incision C/D/I, well approximated, no drainage noted. - Hx: GERD-continue home famotidine regimen. - Hx: Chronic constipation-continue current bowel regimen including MiraLAX daily and senna/docusate sodium twice daily. - D/c Oxy IR, Schedule Tylenol 1000mg Q8 hours, start Zofran 4mg PRN for nausea, reevaluate pain level in the AM - Low dose of Oxy IR, with schedule Tylenol - Insomnia -> Ativan 0.5mg at HS - Increased pain in her left knee, ESR obtained was [address] Vazquez - Urinary frequency, start Detrol 2mg daily
--- NOTE | 2018-03-16 11:21 | CASEMGMT ---
Team meeting held. Patient present as well as patient granddaughter. Patient has been approved 14 days through Medicare with discharge on or by 03/23/18. Patient planning to discharge on 03/23/18, team agreeable to this plan. Patient reporting to need a walker at time of discharge and to have no preference of [employer] to be utilized. Physical therapy is recommending for patient to have outpatient physical therapy at time of discharge, patient is agreeable to recommendation and requesting for outpatient physical therapy to be set up through [facility]. Patient plans to discharge home with granddaughter at time of discharge. Support given. Will fax order for walker and outpatient physical therapy when obtained. Proposed discharge date: 03/23/18 Will continue to follow. PLAN: Discharge home with granddaughter and outpatient physical therapy. Khushi WASHINGTON, REPORTING COORDINATOR
[2018-03-16 11:54] LABS: Erythrocyte Sedimentation Rate 87 mm/hr (0-30)
[2018-03-16] MEDS: Tolterodine Tartrate 2 MG CAP.SA PO (12:19)
[2018-03-16 18:22] LABS: Absolute Lymphocyte Count 1.99 X10^3/ul (0.83-4.51); Absolute Neutrophil Count 4.1 X10^3/uL (2.0-7.7); Basophil# 0.02 X10^3/uL; Basophil% 0.3 % (0-1); Eosinophil# 0.18 X10^3/uL; Eosinophils% 2.5 % (0-5); Hematocrit 24.5 % (37-47); Hemoglobin 7.7 g/dl (12.0-15.0); Lymphocyte # 1.99 X10^3/ul (4.0); Lymphocyte % 27.7 % (19-41); Mean Corp Hgb Conc 31.4 g/gl (32-36); Mean Platelet Vol. 8.9 fl (6.2-12.0); Monocyte# 0.85 X10^3/uL; Monocyte% 11.8 % (0-10); Neutrophil # 4.05 X10^3/uL (2.7-7.7); Neutrophil % 56.4 % (47-70); Platelet Count 417 K/mm3 (150-450); RBC Distribution Width CV 15.8 % (11.6-14.6); RBC Distribution Width SD 49.5 fl (35.1-43.9); Red Blood Count 2.85 M/mm3 (4.2-5.4); White Blood Count 7.2 K/mm3 (4.4-11.0)
[2018-03-16 18:23] LABS: Absolute Nucleated RBC Count 0.06 10^3/uL (0-5); NRBC Flagged by Analyzer 0.8 % (0-5); POSITIVE COUNT NO; POSITIVE DIFFERENTIAL NO; POSITIVE MORPHOLOGY NO
[2018-03-16 20:06] VITALS: BP 147/76; PULSE 94; RESP 18; TEMP 36.9; O2SAT 99
[2018-03-16] MEDS: Latanoprost 0.005% 1 Bottle 1 DRP OPHTHALMIC (21:28)
[2018-03-16] MEDS: LORazepam 0.5 MG Tablet PO (21:29)
--- NOTE | 2018-03-17 04:13 | NURSING ---
Pt awakened for toileting and remarked how much better she slept last night, like a baby! Pt not nearly as painful and without the urgency previously experienced. Pt expressed appreciation for everything done to ensure good rest.
[2018-03-17] MEDS: Acetaminophen 500 MG Tablet 1000 MG PO ×3 (04:37→20:36)
[2018-03-17] MEDS: oxyCODONE 5 MG Tablet PO ×3 (06:30→16:44)
[2018-03-17] MEDS: BRIMONIDINE 0.2% 5ML BOTTLE 1 DRP EACH EYE ×2 (07:36→20:35)
[2018-03-17] MEDS: Timolol 0.5% 5ML OPTH.BTL 1 DRP EACH EYE ×2 (07:36→20:35)
[2018-03-17] MEDS: Multivitamins,Ther W-Minerals Tablet 1 TABLET PO (07:37)
[2018-03-17] MEDS: Aspirin E.C. 325 MG Tablet PO ×2 (07:37→16:44)
[2018-03-17] MEDS: Iron Polysaccharide Complex 150 MG CAPSULE PO (07:37)
[2018-03-17] MEDS: Famotidine 20 MG Tablet 40 MG PO (07:37)
[2018-03-17] MEDS: Folic Acid 1 MG Tablet PO (07:37)
[2018-03-17] MEDS: Senna/Docusate Sodium 1 Tablet 2 TABLET PO ×2 (07:40→20:35)
[2018-03-17] MEDS: Pantoprazole Sodium 20 MG Tablet PO (07:40)
[2018-03-17 09:00] VITALS: BP 139/74; PULSE 91; RESP 18; TEMP 36.7; O2SAT 98
--- NOTE | 2018-03-17 10:00 | NURSING ---
Dr. Vazquez aware of all lab results and assessment of knee which has no redness or drainage, moderate swelling, pain at times can be rated severe per patient but tolerating therapy. Devora Contreras NP also assessed lab results and knee incision site.
[2018-03-17] MEDS: Verapamil SR 180 MG CAPSULE 360 MG PO (10:30)
[2018-03-17] MEDS: Tolterodine Tartrate 2 MG CAP.SA PO (10:30)
[2018-03-17 19:45] VITALS: BP 139/68; PULSE 89; RESP 18; TEMP 36.7; O2SAT 98
[2018-03-17] MEDS: Latanoprost 0.005% 1 Bottle 1 DRP OPHTHALMIC (20:36)
[2018-03-17] MEDS: MELATONIN 3 MG TABLET PO (21:54)
[2018-03-17] MEDS: LORazepam 0.5 MG Tablet PO (21:54)
[2018-03-18] MEDS: oxyCODONE 5 MG Tablet PO ×5 (00:08→20:36)
[2018-03-18] MEDS: Acetaminophen 500 MG Tablet 1000 MG PO ×3 (05:47→20:38)
--- NOTE | 2018-03-18 06:12 | NURSING ---
Reviewed and agree with LPNs fims and handoff
[2018-03-18] MEDS: Aspirin E.C. 325 MG Tablet PO ×2 (09:36→16:37)
[2018-03-18] MEDS: Folic Acid 1 MG Tablet PO (09:36)
[2018-03-18] MEDS: Iron Polysaccharide Complex 150 MG CAPSULE PO (09:36)
[2018-03-18] MEDS: Multivitamins,Ther W-Minerals Tablet 1 TABLET PO (09:36)
[2018-03-18] MEDS: Senna/Docusate Sodium 1 Tablet 2 TABLET PO ×2 (09:36→20:38)
[2018-03-18] MEDS: Tolterodine Tartrate 2 MG CAP.SA PO (09:37)
[2018-03-18] MEDS: Timolol 0.5% 5ML OPTH.BTL 1 DRP EACH EYE ×2 (09:37→20:37)
[2018-03-18] MEDS: Verapamil SR 180 MG CAPSULE 360 MG PO (09:37)
[2018-03-18] MEDS: BRIMONIDINE 0.2% 5ML BOTTLE 1 DRP EACH EYE ×2 (09:37→20:34)
[2018-03-18] MEDS: Pantoprazole Sodium 20 MG Tablet PO (09:37)
[2018-03-18] MEDS: Famotidine 20 MG Tablet 40 MG PO (09:37)
[2018-03-18] MEDS: Docusate Sodium 100 MG Capsule PO (09:52)
[2018-03-18] MEDS: Magnesium Hydroxide 30 ML UDC PO (09:52)
[2018-03-18 10:00] VITALS: BP 130/52; PULSE 92; RESP 16; TEMP 36.6; O2SAT 97
--- NOTE | 2018-03-18 15:08 | PN_ITS ---
Subjective: Left knee feeling better with decreased edema. Vitals/I&O's: Vital Signs Temp Pulse Resp BP Pulse Ox 36.6 C 92 16 130/52 H 97 03/18/18 10:00 03/18/18 10:00 03/18/18 10:00 03/18/18 10:00 03/18/18 10:00 Oxygen Flow Rate (L/min) 2 Oxygen Delivery Method Room Air Weight: 117.6 kg Body Mass Index (BMI) 44.5 Intake and Output for Last 24 Hours 03/16/18 03/17/18 03/18/18 23:59 23:59 23:59 Intake Total 660 / 660 Balance 660 / 660 General: Alert, Cooperative, No apparent distress HEENT: Atraumatic, Normocephalic, - - Up in chair. No acute distress. Extremities: - - Increased edema of the left knee. Skin: - - Incision over the left knee is intact and well approximated. No evidence of any erythema nor warmth. Current Medications Acetaminophen (Tylenol) 1,000 mg PO Q8 [facility] Last Admin: 03/18/18 13:39 Dose: 1,000 mg Aspirin (Ecotrin) 325 mg PO BIDCM [facility] Last Admin: 03/18/18 09:36 Dose: 325 mg Bisacodyl (Dulcolax) 10 mg RECTAL .PRN X 1 PRN PRN Reason: Constipation Brimonidine Tartrate (Brimonidine 0.2% 5ml Bottle) 1 drop EACH EYE BID [facility] Last Admin: 03/18/18 09:37 Dose: 1 drop Docusate Sodium (Colace) 100 mg PO BID PRN PRN PRN Reason: Constipation Last Admin: 03/18/18 09:52 Dose: 100 mg Famotidine (Pepcid) 40 mg PO DAILY [facility] Last Admin: 03/18/18 09:37 Dose: 40 mg Folic Acid (Folic Acid) 1 mg PO DAILY@0800 [facility] Last Admin: 03/18/18 09:36 Dose: 1 mg Latanoprost (Xalatan Opthalmic) 1 drop OPHTHALMIC HS [facility] Last Admin: 03/17/18 20:36 Dose: 1 drop Lorazepam (Ativan) 0.5 mg PO QHS PRN PRN PRN Reason: INSOMNIA Last Admin: 03/17/18 21:54 Dose: 0.5 mg Magnesium Hydroxide (Milk Of Magnesia) 30 ml PO .PRN X 1 PRN PRN Reason: Constipation Last Admin: 03/18/18 09:52 Dose: 30 ml Melatonin (Melatonin) 3 mg PO QHS [facility] Last Admin: 03/17/18 21:54 Dose: 3 mg Multivitamins/Minerals (Multivitamin With Minerals) 1 tablet PO DAILY@0800 [facility] Last Admin: 03/18/18 09:36 Dose: 1 tablet Ondansetron HCl (Zofran Odt) 4 mg PO Q8H PRN PRN PRN Reason: NAUSEA Oxycodone HCl (Oxyir) 5 mg PO Q4H PRN PRN PRN Reason: SEVERE PAIN (6-10/10) Last Admin: 03/18/18 09:38 Dose: 5 mg Pantoprazole Sodium (Protonix) 20 mg PO DAILY [facility] Last Admin: 03/18/18 09:37 Dose: 20 mg Polyethylene Glycol (Miralax) 17 gm PO DAILY PRN PRN Reason: Constipation Polysaccharide [facility] ([facility]rex 150) [facility] Last Admin: 03/18/18 09:36 Dose: 150 mg Senna/Docusate Sodium (Senokot-S, Rafia-Colace) 2 tablet PO BID [facility] Last Admin: 03/18/18 09:36 Dose: 2 tablet Timolol Maleate (Timoptic) 1 drop EACH EYE BID [facility] Last Admin: 03/18/18 09:37 Dose: 1 drop Tolterodine Tartrate (Detrol La) 2 mg PO DAILY [facility] Last Admin: 03/18/18 09:37 Dose: 2 mg Verapamil HCl (Calan Sr) 360 mg PO DAILY [facility] Last Admin: 03/18/18 09:37 Dose: 360 mg Medical Necessity - Tobacco Use Smoking Status: Never smoker Tobacco Use: Non-smoker Assessment/Plan 1. LLE swelling * suspect post-operative * no s/s infection at this time * Duplex negative. * no evidence of cellulitis nor septic arthritis * Improving. * Elevated ESR and CRP are likely related with the surgical process itself and not an infectious process. * Follow-up with Dr. Vazquez. 2. Acute blood loss anemia * continue to monitor * on iron * Has been stable. 3. DVT proph * on aspirin per orthopaedics. Code Visit Inpatient E&M: 16380 [facility] L[facility]
[2018-03-18] MEDS: Polyethylene Glycol 3350 17 GM PACKET PO (15:52)
[2018-03-18 18:24] VITALS: BP 128/66; PULSE 91; RESP 18; TEMP 36.6; O2SAT 96
[2018-03-18] MEDS: LORazepam 0.5 MG Tablet PO (20:36)
[2018-03-18] MEDS: Latanoprost 0.005% 1 Bottle 1 DRP OPHTHALMIC (20:37)
[2018-03-18] MEDS: MELATONIN 3 MG TABLET PO (20:38)
[2018-03-19] MEDS: oxyCODONE 5 MG Tablet PO ×4 (01:43→21:05)
[2018-03-19] MEDS: Acetaminophen 500 MG Tablet 1000 MG PO ×3 (05:18→21:12)
[2018-03-19] MEDS: Multivitamins,Ther W-Minerals Tablet 1 TABLET PO (08:54)
[2018-03-19] MEDS: Aspirin E.C. 325 MG Tablet PO ×2 (08:54→16:16)
[2018-03-19] MEDS: Pantoprazole Sodium 20 MG Tablet PO (08:54)
[2018-03-19] MEDS: Verapamil SR 180 MG CAPSULE 360 MG PO (08:54)
[2018-03-19] MEDS: Senna/Docusate Sodium 1 Tablet 2 TABLET PO ×2 (08:54→21:12)
[2018-03-19] MEDS: Famotidine 20 MG Tablet 40 MG PO (08:54)
[2018-03-19] MEDS: Folic Acid 1 MG Tablet PO (08:54)
[2018-03-19] MEDS: Iron Polysaccharide Complex 150 MG CAPSULE PO (08:55)
[2018-03-19] MEDS: Tolterodine Tartrate 2 MG CAP.SA PO (08:55)
[2018-03-19] MEDS: BRIMONIDINE 0.2% 5ML BOTTLE 1 DRP EACH EYE ×2 (08:58→21:11)
[2018-03-19] MEDS: Timolol 0.5% 5ML OPTH.BTL 1 DRP EACH EYE ×2 (08:58→21:12)
[2018-03-19 09:01] VITALS: BP 146/70; PULSE 70; RESP 18; TEMP 36.3; O2SAT 96
[2018-03-19 21:08] VITALS: BP 137/78; PULSE 89; RESP 18; TEMP 36.6; O2SAT 99
[2018-03-19] MEDS: Latanoprost 0.005% 1 Bottle 1 DRP OPHTHALMIC (21:11)
[2018-03-19] MEDS: LORazepam 0.5 MG Tablet PO (21:12)
[2018-03-19] MEDS: MELATONIN 3 MG TABLET PO ×2 (23:44→23:45)
[2018-03-20] MEDS: oxyCODONE 5 MG Tablet PO ×3 (03:28→14:09)
[2018-03-20] MEDS: Ondansetron ODT 4 MG Tablet PO (04:25)
--- NOTE | 2018-03-20 04:28 | NURSING ---
C/O nausea. Passing gas. Assisted to bathroom. Voids only and passes gas. Zofran given. States is feeling alittle better after passing gas.
[2018-03-20] MEDS: Acetaminophen 500 MG Tablet 1000 MG PO ×3 (06:03→21:00)
[2018-03-20 07:31] VITALS: PULSE 94; RESP 18; TEMP 36.8; O2SAT 94
[2018-03-20] MEDS: Polyethylene Glycol 3350 17 GM PACKET PO (08:25)
[2018-03-20] MEDS: Famotidine 20 MG Tablet 40 MG PO (08:26)
[2018-03-20] MEDS: Senna/Docusate Sodium 1 Tablet 2 TABLET PO ×2 (08:27→21:01)
[2018-03-20] MEDS: Verapamil SR 180 MG CAPSULE 360 MG PO (08:27)
[2018-03-20] MEDS: Multivitamins,Ther W-Minerals Tablet 1 TABLET PO (08:27)
[2018-03-20] MEDS: Aspirin E.C. 325 MG Tablet PO ×2 (08:27→17:18)
[2018-03-20] MEDS: Tolterodine Tartrate 2 MG CAP.SA PO (08:27)
[2018-03-20] MEDS: Iron Polysaccharide Complex 150 MG CAPSULE PO (08:27)
[2018-03-20] MEDS: Pantoprazole Sodium 20 MG Tablet PO (08:27)
[2018-03-20] MEDS: Folic Acid 1 MG Tablet PO (08:27)
[2018-03-20] MEDS: Timolol 0.5% 5ML OPTH.BTL 1 DRP EACH EYE ×2 (08:28→21:00)
[2018-03-20] MEDS: BRIMONIDINE 0.2% 5ML BOTTLE 1 DRP EACH EYE ×2 (08:28→21:01)
--- NOTE | 2018-03-20 12:51 | PCM.PN.NEU ---
Subjective: Patient seen and examined. Did not sleep very well last night, does have medications on board to help with this. Typically she does not rest well during the night even when she is at home, so this is not a new incident for her. She denies any shortness of breath or chest pains. Pain is well control at this time and at other times its not according to the patient. Will continue to monitor pain level, she does not tolerate pain medications very well. She is tolerating therapy. No issues with GI/. - Physical Exam General: Alert, Oriented x3, Cooperative HEENT: Atraumatic, PERRLA, EOMI, Normocephalic Neck: Supple, No JVD, Negative Carotid Bruits Lungs: Clear to auscultation, Normal air movement Cardiovascular: Regular rate, No murmurs Abdomen: Bowel Sounds Present, Soft, Non Tender Extremities: No edema, Capillary Refill Less than 3 Seconds Skin: No rashes, No breakdown Musculoskeletal: No Tenderness to Palpation of Joints or Extremities Neurological: Cranial nerves II-XII grossly intact Psych/Mental Status: Normal Affect, Appropriate, Alert and oriented to time, place, person, mood and affect Vital Signs Temp Pulse Resp BP Pulse Ox 98.2 F 94 18 137/78 H 94 03/20/18 07:31 03/20/18 07:31 03/20/18 07:31 03/19/18 21:08 03/20/18 07:31 Oxygen Flow Rate (L/min) 2 Oxygen Delivery Method Room Air Weight: 117.6 kg Body Mass Index (BMI) 44.5 Intake and Output for Last 24 Hours 03/18/18 03/19/18 03/20/18 23:59 23:59 23:59 Intake Total 260 / 260 Balance 260 / 260 Active Medications Acetaminophen (Tylenol) 1,000 mg PO Q8 [facility] Last Admin: 03/20/18 06:03 Dose: 1,000 mg Aspirin (Ecotrin) 325 mg PO BIDCM [facility] Last Admin: 03/20/18 08:27 Dose: 325 mg Bisacodyl (Dulcolax) 10 mg RECTAL .PRN X 1 PRN PRN Reason: Constipation Brimonidine Tartrate (Brimonidine 0.2% 5ml Bottle) 1 drop EACH EYE BID [facility] Last Admin: 03/20/18 08:28 Dose: 1 drop Docusate Sodium (Colace) 100 mg PO BID PRN PRN PRN Reason: Constipation Last Admin: 03/18/18 09:52 Dose: 100 mg Famotidine (Pepcid) 40 mg PO DAILY [facility] Last Admin: 03/20/18 08:26 Dose: 40 mg Folic Acid (Folic Acid) 1 mg PO DAILY@0800 [facility] Last Admin: 03/20/18 08:27 Dose: 1 mg Lactulose (Chronulac, Cephulac) 20 gm PO DAILY PRN PRN Reason: Constipation Latanoprost (Xalatan Opthalmic) 1 drop OPHTHALMIC HS [facility] Last Admin: 03/19/18 21:11 Dose: 1 drop Lorazepam (Ativan) 0.5 mg PO QHS PRN PRN PRN Reason: INSOMNIA Last Admin: 03/19/18 21:12 Dose: 0.5 mg Magnesium Hydroxide (Milk Of Magnesia) 30 ml PO .PRN X 1 PRN PRN Reason: Constipation Last Admin: 03/18/18 09:52 Dose: 30 ml Melatonin (Melatonin) 3 mg PO QHS [facility] Last Admin: 03/19/18 23:45 Dose: 3 mg Multivitamins/Minerals (Multivitamin With Minerals) 1 tablet PO DAILY@0800 [facility] Last Admin: 03/20/18 08:27 Dose: 1 tablet Ondansetron HCl (Zofran Odt) 4 mg PO Q8H PRN PRN PRN Reason: NAUSEA Last Admin: 03/20/18 04:25 Dose: 4 mg Oxycodone HCl (Oxyir) 5 mg PO Q4H PRN PRN PRN Reason: SEVERE PAIN (6-10/10) Last Admin: 03/20/18 08:25 Dose: 5 mg Pantoprazole Sodium (Protonix) 20 mg PO DAILY [facility] Last Admin: 03/20/18 08:27 Dose: 20 mg Polyethylene Glycol (Miralax) 17 gm PO BID [facility] Polysaccharide [facility] ([facility]rex 150) [facility] Last Admin: 03/20/18 08:27 Dose: 150 mg Senna/Docusate Sodium (Senokot-S, Rafia-Colace) 2 tablet PO BID [facility] Last Admin: 03/20/18 08:27 Dose: 2 tablet Timolol Maleate (Timoptic) 1 drop EACH EYE BID [facility] Last Admin: 03/20/18 08:28 Dose: 1 drop Tolterodine Tartrate (Detrol La) 2 mg PO DAILY [facility] Last Admin: 03/20/18 08:27 Dose: 2 mg Verapamil HCl (Calan Sr) 360 mg PO DAILY [facility] Last Admin: 03/20/18 08:27 Dose: 360 mg Medical Necessity - Tobacco Use Smoking Status: Never smoker Tobacco Use: Non-smoker Assessment/Plan Debility status post Left total knee replacement surgery. Goal of rehab is rastafarian of prior level of functional independence. Plan: - Physical therapy for gait and balance - Occupational Therapy for ADLs - As needed analgesics - Bowel protocol - DVT prophylaxis: BID Aspirin therapy 325mg BID, per orthopedic surgeon, Roland Saucedo - HLD - continue home dose of statin - HTN - stable => continue home medications of verapamil - Post op anemia - resolved Hgb on 07/22 was 10.7, No signs of any bleeding. - Anemia 2/2 acute blood loss following surgery, baseline hemoglobin approximately 10. Hemoglobin currently 8 -> patient placed on Ferrex - Hypokalemia => K+ 3.3, K-Dur 40 meq x 3 days recheck K+ on day 07/30. - Status post left total knee arthroplasty -> incision C/D/I, well approximated, no drainage noted. - Hx: GERD-continue home famotidine regimen. - Hx: Chronic constipation-continue current bowel regimen including MiraLAX daily and senna/docusate sodium twice daily. - D/c Oxy IR, Schedule Tylenol 1000mg Q8 hours, start Zofran 4mg PRN for nausea, reevaluate pain level in the AM - Low dose of Oxy IR, with schedule Tylenol - Insomnia -> Ativan 0.5mg at HS - Increased pain in her left knee, ESR obtained was [address] Vazquez - Urinary frequency, start Detrol 2mg daily
--- NOTE | 2018-03-20 12:55 | PN.NEURO_ITS ---
Subjective: Patient seen and examined. Did not sleep very well last night, does have medications on board to help with this. Typically she does not rest well during the night even when she is at home, so this is not a new incident for her. She denies any shortness of breath or chest pains. Pain is well control at this time and at other times its not according to the patient. Will continue to monitor pain level, she does not tolerate pain medications very well. She is tolerating therapy. No issues with GI/. - Physical Exam General: Alert, Oriented x3, Cooperative HEENT: Atraumatic, PERRLA, EOMI, Normocephalic Neck: Supple, No JVD, Negative Carotid Bruits Lungs: Clear to auscultation, Normal air movement Cardiovascular: Regular rate, No murmurs Abdomen: Bowel Sounds Present, Soft, Non Tender Extremities: No edema, Capillary Refill Less than 3 Seconds Skin: No rashes, No breakdown Musculoskeletal: No Tenderness to Palpation of Joints or Extremities Neurological: Cranial nerves II-XII grossly intact Psych/Mental Status: Normal Affect, Appropriate, Alert and oriented to time, place, person, mood and affect Vital Signs Temp Pulse Resp BP Pulse Ox 98.2 F 94 18 137/78 H 94 03/20/18 07:31 03/20/18 07:31 03/20/18 07:31 03/19/18 21:08 03/20/18 07:31 Oxygen Flow Rate (L/min) 2 Oxygen Delivery Method Room Air Weight: 117.6 kg Body Mass Index (BMI) 44.5 Intake and Output for Last 24 Hours 03/18/18 03/19/18 03/20/18 23:59 23:59 23:59 Intake Total 260 / 260 Balance 260 / 260 Active Medications Acetaminophen (Tylenol) 1,000 mg PO Q8 [facility] Last Admin: 03/20/18 06:03 Dose: 1,000 mg Aspirin (Ecotrin) 325 mg PO BIDCM [facility] Last Admin: 03/20/18 08:27 Dose: 325 mg Bisacodyl (Dulcolax) 10 mg RECTAL .PRN X 1 PRN PRN Reason: Constipation Brimonidine Tartrate (Brimonidine 0.2% 5ml Bottle) 1 drop EACH EYE BID [facility] Last Admin: 03/20/18 08:28 Dose: 1 drop Docusate Sodium (Colace) 100 mg PO BID PRN PRN PRN Reason: Constipation Last Admin: 03/18/18 09:52 Dose: 100 mg Famotidine (Pepcid) 40 mg PO DAILY [facility] Last Admin: 03/20/18 08:26 Dose: 40 mg Folic Acid (Folic Acid) 1 mg PO DAILY@0800 [facility] Last Admin: 03/20/18 08:27 Dose: 1 mg Lactulose (Chronulac, Cephulac) 20 gm PO DAILY PRN PRN Reason: Constipation Latanoprost (Xalatan Opthalmic) 1 drop OPHTHALMIC HS [facility] Last Admin: 03/19/18 21:11 Dose: 1 drop Lorazepam (Ativan) 0.5 mg PO QHS PRN PRN PRN Reason: INSOMNIA Last Admin: 03/19/18 21:12 Dose: 0.5 mg Magnesium Hydroxide (Milk Of Magnesia) 30 ml PO .PRN X 1 PRN PRN Reason: Constipation Last Admin: 03/18/18 09:52 Dose: 30 ml Melatonin (Melatonin) 3 mg PO QHS [facility] Last Admin: 03/19/18 23:45 Dose: 3 mg Multivitamins/Minerals (Multivitamin With Minerals) 1 tablet PO DAILY@0800 [facility] Last Admin: 03/20/18 08:27 Dose: 1 tablet Ondansetron HCl (Zofran Odt) 4 mg PO Q8H PRN PRN PRN Reason: NAUSEA Last Admin: 03/20/18 04:25 Dose: 4 mg Oxycodone HCl (Oxyir) 5 mg PO Q4H PRN PRN PRN Reason: SEVERE PAIN (6-10/10) Last Admin: 03/20/18 08:25 Dose: 5 mg Pantoprazole Sodium (Protonix) 20 mg PO DAILY [facility] Last Admin: 03/20/18 08:27 Dose: 20 mg Polyethylene Glycol (Miralax) 17 gm PO BID [facility] Polysaccharide [facility] (Ferrex 150) [facility] Last Admin: 03/20/18 08:27 Dose: 150 mg Senna/Docusate Sodium (Senokot-S, Rafia-Colace) 2 tablet PO BID [facility] Last Admin: 03/20/18 08:27 Dose: 2 tablet Timolol Maleate (Timoptic) 1 drop EACH EYE BID [facility] Last Admin: 03/20/18 08:28 Dose: 1 drop Tolterodine Tartrate (Detrol La) 2 mg PO DAILY [facility] Last Admin: 03/20/18 08:27 Dose: 2 mg Verapamil HCl (Calan Sr) 360 mg PO DAILY [facility] Last Admin: 03/20/18 08:27 Dose: 360 mg Medical Necessity - Tobacco Use Smoking Status: Never smoker Tobacco Use: Non-smoker Assessment/Plan Debility status post Left total knee replacement surgery. Goal of rehab is christianity of prior level of functional independence. Plan: - Physical therapy for gait and balance - Occupational Therapy for ADLs - As needed analgesics - Bowel protocol - DVT prophylaxis: BID Aspirin therapy 325mg BID, per orthopedic surgeon, Roland Saucedo - HLD - continue home dose of statin - HTN - stable => continue home medications of verapamil - Post op anemia - resolved Hgb on 07/22 was 10.7, No signs of any bleeding. - Anemia 2/2 acute blood loss following surgery, baseline hemoglobin approximately 10. Hemoglobin currently 8 -> patient placed on Ferrex - Hypokalemia => K+ 3.3, K-Dur 40 meq x 3 days recheck K+ on day 07/30. - Status post left total knee arthroplasty -> incision C/D/I, well approximated , no drainage noted. - Hx: GERD-continue home famotidine regimen. - Hx: Chronic constipation-continue current bowel regimen including MiraLAX daily and senna/docusate sodium twice daily. - D/c Oxy IR, Schedule Tylenol 1000mg Q8 hours, start Zofran 4mg PRN for nausea , reevaluate pain level in the AM - Low dose of Oxy IR, with schedule Tylenol - Insomnia -> Ativan 0.5mg at HS - Increased pain in her left knee, ESR obtained was [address] Vazquez - Urinary frequency, start Detrol 2mg daily
[2018-03-20] MEDS: Docusate Sodium 100 MG Capsule PO (14:10)
[2018-03-20] MEDS: Magnesium Hydroxide 30 ML UDC PO (14:10)
--- NOTE | 2018-03-20 15:11 | PN_ITS ---
Subjective: Patient seen participating in therapy Objective: GENERAL: cooperative HEENT: Clear conjunctiva, NECK; supple, normal thyroid, CHEST: Clear to auscultation bilaterally, HEART: Regular S1 S2, no audible murmurs ABDOMEN: soft, non-tender, normoactive bowel sounds, RECTAL: deferred EXTREMITIES: No edema, no clubbing, no cyanosis. 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 SKIN: No rash Vitals/I&O's: Vital Signs Temp Pulse Resp BP Pulse Ox 98.2 F 94 18 137/78 H 94 03/20/18 07:31 03/20/18 07:31 03/20/18 07:31 03/19/18 21:08 03/20/18 07:31 Oxygen Flow Rate (L/min) 2 Oxygen Delivery Method Room Air Weight: 117.6 kg Body Mass Index (BMI) 44.5 Intake and Output for Last 24 Hours 03/18/18 03/19/18 03/20/18 23:59 23:59 23:59 Intake Total 260 / 260 260 / 260 Balance 260 / 260 260 / 260 Current Medications Acetaminophen (Tylenol) 1,000 mg PO Q8 [facility] Last Admin: 03/20/18 14:10 Dose: 1,000 mg Aspirin (Ecotrin) 325 mg PO BIDCM [facility] Last Admin: 03/20/18 08:27 Dose: 325 mg Bisacodyl (Dulcolax) 10 mg RECTAL .PRN X 1 PRN PRN Reason: Constipation Brimonidine Tartrate (Brimonidine 0.2% 5ml Bottle) 1 drop EACH EYE BID [facility] Last Admin: 03/20/18 08:28 Dose: 1 drop Docusate Sodium (Colace) 100 mg PO BID PRN PRN PRN Reason: Constipation Last Admin: 03/20/18 14:10 Dose: 100 mg Famotidine (Pepcid) 40 mg PO DAILY [facility] Last Admin: 03/20/18 08:26 Dose: 40 mg Folic Acid (Folic Acid) 1 mg PO DAILY@0800 [facility] Last Admin: 03/20/18 08:27 Dose: 1 mg Lactulose (Chronulac, Cephulac) 20 gm PO DAILY PRN PRN Reason: Constipation Latanoprost (Xalatan Opthalmic) 1 drop OPHTHALMIC HS [facility] Last Admin: 03/19/18 21:11 Dose: 1 drop Lorazepam (Ativan) 0.5 mg PO QHS PRN PRN PRN Reason: INSOMNIA Last Admin: 03/19/18 21:12 Dose: 0.5 mg Magnesium Hydroxide (Milk Of Magnesia) 30 ml PO .PRN X 1 PRN PRN Reason: Constipation Last Admin: 03/20/18 14:10 Dose: 30 ml Melatonin (Melatonin) 3 mg PO QHS [facility] Last Admin: 03/19/18 23:45 Dose: 3 mg Multivitamins/Minerals (Multivitamin With Minerals) 1 tablet PO DAILY@0800 [facility] Last Admin: 03/20/18 08:27 Dose: 1 tablet Ondansetron HCl (Zofran Odt) 4 mg PO Q8H PRN PRN PRN Reason: NAUSEA Last Admin: 03/20/18 04:25 Dose: 4 mg Oxycodone HCl (Oxyir) 5 mg PO Q4H PRN PRN PRN Reason: SEVERE PAIN (6-10/10) Last Admin: 03/20/18 14:09 Dose: 5 mg Pantoprazole Sodium (Protonix) 20 mg PO DAILY [facility] Last Admin: 03/20/18 08:27 Dose: 20 mg Polyethylene Glycol (Miralax) 17 gm PO BID [facility] Polysaccharide Iron [facility] ([facility]rex 150) [facility] Last Admin: 03/20/18 08:27 Dose: 150 mg Senna/Docusate Sodium (Senokot-S, Rafia-Colace) 2 tablet PO BID [facility] Last Admin: 03/20/18 08:27 Dose: 2 tablet Timolol Maleate (Timoptic) 1 drop EACH EYE BID [facility] Last Admin: 03/20/18 08:28 Dose: 1 drop Tolterodine Tartrate (Detrol La) 2 mg PO DAILY [facility] Last Admin: 03/20/18 08:27 Dose: 2 mg Verapamil HCl (Calan Sr) 360 mg PO DAILY [facility] Last Admin: 03/20/18 08:27 Dose: 360 mg Medical Necessity - Tobacco Use Smoking Status: Never smoker Tobacco Use: Non-smoker Assessment/Plan 72-year-old lady who underwent left total knee arthroplasty by Dr. Vazquez on 2017 subsequently transferred to the inpatient rehab unit to continue with her recuperation 1. Status post left total knee arthroplasty on 03/11/2018 2. Acute blood loss anemia following surgery monitoring H&H 3. Hypertension-blood pressure controlled, home medications continued with dose adjustment as needed 4. GERD 5. DVT prophylaxis aspirin 325 mg p.o. twice daily as recommended by Ortho Code Visit Inpatient E&M: 24420 Subs Hosp L2
--- NOTE | 2018-03-20 16:24 | RAD_ITS ---
STUDY: X-RAY - LEFT KNEE REASON FOR EXAM: Female, 72 years old. Pain TECHNIQUE: 3 view(s) of the knee. COMPARISON: March 07, 2018 FINDINGS: Stable total left hip replacement. The hardware components are well aligned and similar to previous study. No imaging evidence of loosening. Joint effusion is noted. The soft tissue structures are unremarkable. RAD/Knee 3 Views IMPRESSION: Stable total replacement of the knee. Electronically Signed: Hi Azar DO at 23:57 EDT Tel [phone], Service support ,
[2018-03-20] MEDS: Lactulose 20 GM/30 ML UDC PO (17:18)
[2018-03-20 19:39] VITALS: BP 146/74; PULSE 87; RESP 16; TEMP 36.8; O2SAT 95
[2018-03-20] MEDS: Latanoprost 0.005% 1 Bottle 1 DRP OPHTHALMIC (20:59)
[2018-03-20] MEDS: MELATONIN 3 MG TABLET PO (22:24)
[2018-03-20] MEDS: LORazepam 0.5 MG Tablet PO (22:24)
[2018-03-21] MEDS: Acetaminophen 500 MG Tablet 1000 MG PO ×3 (05:24→21:29)
--- NOTE | 2018-03-21 06:24 | NURSING ---
pt rings to have radha bandage removed d/t being too tight staff asked pt if she wanted it rewrapped and pt declined stating no i want it off. pt was very tearful at this time. pt asked if staff could assist her with anything else and pt responded no. call light in reach and rn made aware that radha to lt lle was removed per pt request
[2018-03-21 07:01] VITALS: BP 155/69; PULSE 78; RESP 16; TEMP 36.5; O2SAT 94
[2018-03-21] MEDS: oxyCODONE 5 MG Tablet PO ×4 (07:05→21:29)
--- NOTE | 2018-03-21 08:55 | VDLE_ITS ---
Reason For Study: edema Procedure LEFT Exam performed portable in patient room. GSV is normal. The exam was diagnostic. CFV is compressible, spontaneous, phasic, A preliminary report was called and/or faxed competent, and demonstrates normal to the pt's nurse. augmentation. FV is compressible, spontaneous, phasic, competent and demonstrates normal augmentation. POP V is compressible, spontaneous, phasic, competent and demonstrates normal augmentation. T/P Trunk is compressible. PTV is compressible. LT PerV is compressible. Interpretation Summary Deep veins of the left lower extremity are patent and compressible segmentally. There is no evidence of left lower extremity deep vein thrombosis. Valvular competence appears intact within the proximal deep venous system on the left . The left greater saphenous vein appears patent and compressible segmentally. Ordering Physician: Diane Nevarez Performed By: Isreal Rangel RVT
[2018-03-21] MEDS: Iron Polysaccharide Complex 150 MG CAPSULE PO (09:04)
[2018-03-21] MEDS: Tolterodine Tartrate 2 MG CAP.SA PO (09:04)
[2018-03-21] MEDS: Polyethylene Glycol 3350 17 GM PACKET PO ×2 (09:04→21:30)
[2018-03-21] MEDS: Pantoprazole Sodium 20 MG Tablet PO (09:04)
[2018-03-21] MEDS: Famotidine 20 MG Tablet 40 MG PO (09:04)
[2018-03-21] MEDS: Aspirin E.C. 325 MG Tablet PO ×2 (09:04→17:14)
[2018-03-21] MEDS: Folic Acid 1 MG Tablet PO (09:05)
[2018-03-21] MEDS: Multivitamins,Ther W-Minerals Tablet 1 TABLET PO (09:05)
[2018-03-21] MEDS: BRIMONIDINE 0.2% 5ML BOTTLE 1 DRP EACH EYE ×2 (09:05→21:30)
[2018-03-21] MEDS: Senna/Docusate Sodium 1 Tablet 2 TABLET PO ×2 (09:05→21:30)
[2018-03-21] MEDS: Verapamil SR 180 MG CAPSULE 360 MG PO (09:05)
[2018-03-21] MEDS: Timolol 0.5% 5ML OPTH.BTL 1 DRP EACH EYE ×2 (09:44→21:30)
--- NOTE | 2018-03-21 16:06 | CASEMGMT ---
Social Work Order for outpatient physical [facility]. Order for walker faxed to Desi Mckeon to have walker delivered to patient room prior to patient discharge. Spoke with patient in room. This mental health social worker communicating all above information and reminding patient that [facility] will be contacting patient to set up outpatient physical therapy appointment. Patient agreeable to all discharge planning and declining for this mental health social worker to contact patient family in regards to discharge plan. Patient reporting to be discharging home with family and that family will also provide transportation home for patient at time of discharge. Support given. Proposed discharge date: 03/23/18 PLAN: Discharge home with family and outpatient physical therapy. Khushi WASHINGTON, REDUCING SYSTEM OPERATOR
[2018-03-21 20:28] VITALS: BP 141/62; PULSE 87; RESP 18; TEMP -13.4; TEMP 7.8; O2SAT 96
--- NOTE | 2018-03-21 20:32 | NURSING ---
pt requesting oxyir but informed pt that pain med won't be due for an hour. Staff repositioned leg, removed ALEXYS warp, replenished polar care, and asked pt if there was anything else that would facilitate ease of pain. Pt declined further needs and informed that staff will check pt when pain meds are due.
[2018-03-21] MEDS: LORazepam 0.5 MG Tablet PO (21:29)
[2018-03-21] MEDS: MELATONIN 3 MG TABLET PO (21:30)
[2018-03-21] MEDS: Latanoprost 0.005% 1 Bottle 1 DRP OPHTHALMIC (21:30)
[2018-03-22] MEDS: Acetaminophen 500 MG Tablet 1000 MG PO ×2 (05:16→13:33)
[2018-03-22] MEDS: oxyCODONE 5 MG Tablet PO ×2 (06:36→11:23)
--- NOTE | 2018-03-22 06:39 | NURSING ---
pt found moaning in bed as nurse passed room. Nurse stopped in to check on pt. Pt did not use call light but was found in pain. When asked to rate pain was pt states 10/10 pain in knee. Oxyir 5mg provided. Pt continued to moan and pulled covers over head after pain med administered.
--- NOTE | 2018-03-22 07:19 | NURSING ---
Pt inquired from staff why she has not had her small pink pain pill that she always gets for pain. Pt reminded that it was given at 06:40 and shown that the time was written on pt dry erase board in room. Pt shook head and stated she only got Tylenol this morning and nothing else.
[2018-03-22 08:17] VITALS: BP 150/72; PULSE 82; RESP 17; TEMP 36.6; O2SAT 97
[2018-03-22] MEDS: Aspirin E.C. 325 MG Tablet PO (08:20)
[2018-03-22] MEDS: Multivitamins,Ther W-Minerals Tablet 1 TABLET PO (08:20)
[2018-03-22] MEDS: Verapamil SR 180 MG CAPSULE 360 MG PO (08:21)
[2018-03-22] MEDS: Timolol 0.5% 5ML OPTH.BTL 1 DRP EACH EYE (08:21)
[2018-03-22] MEDS: Famotidine 20 MG Tablet 40 MG PO (08:21)
[2018-03-22] MEDS: Tolterodine Tartrate 2 MG CAP.SA PO (08:21)
[2018-03-22] MEDS: Folic Acid 1 MG Tablet PO (08:21)
[2018-03-22] MEDS: Iron Polysaccharide Complex 150 MG CAPSULE PO (08:21)
[2018-03-22] MEDS: Pantoprazole Sodium 20 MG Tablet PO (08:21)
[2018-03-22] MEDS: BRIMONIDINE 0.2% 5ML BOTTLE 1 DRP EACH EYE (08:22)
[2018-03-22] MEDS: Polyethylene Glycol 3350 17 GM PACKET PO (08:23)
[2018-03-22] MEDS: Senna/Docusate Sodium 1 Tablet 2 TABLET PO (08:25)
--- NOTE | 2018-03-22 08:29 | NURSING ---
this nurse explained to patient that she did receive her oxyir at hs and in am and brought up the mar and told the patient the exact time. She stated she was up all night and could not sleep and thought she did not get prn oxyir pain medication. she rates her pain 8/10 at this time to right knee and describes the pain as a constant ache. patient requesting to go home today and social science professor aware. patient mod i with walker, gait steady. sherine in room with patient.
--- NOTE | 2018-03-22 09:44 | CASEMGMT ---
Social Work Brigitte, Audiology Technician notifying this foster care social worker that patient is wanting to discharge today versus tomorrow. Spoke with patient in room. Patient is reporting to in fact want to discharge home on this day. Team is agreeable to discharge date being changed to today, 03/22/18. Patient reporting that family is planning to provide transportation home for patient and to be agreeable to the discharge date change. Support given. Telephone call to Ena Mckeon. Updated Ena on patient change of discharge date. Walker to be delivered to patient room prior to patient discharge. Proposed discharge date: 03/22/18 PLAN: Discharge home with spouse and outpatient physical therapy. Khushi WASHINGTON, LOG RAFT WORKER
--- NOTE | 2018-03-22 10:06 | PCM.PN.HOSP ---
Subjective: Plan is for patient to be discharged today Objective: GENERAL: cooperative HEENT: Clear conjunctiva, NECK; supple, normal thyroid, CHEST: Clear to auscultation bilaterally, HEART: Regular S1 S2, no audible murmurs ABDOMEN: soft, non-tender, normoactive bowel sounds, RECTAL: deferred EXTREMITIES: No edema, no clubbing, no cyanosis. CLIN NURSE: Awake, no lateralizing signs. SKIN: No rash Vitals/I&O's: Vital Signs Temp Pulse Resp BP Pulse Ox 97.8 F 82 17 150/72 H 97 03/22/18 08:17 03/22/18 08:17 03/22/18 08:17 03/22/18 08:17 03/22/18 08:17 Oxygen Flow Rate (L/min) 2 Oxygen Delivery Method Room Air Weight: 113.3 kg Body Mass Index (BMI) 44.5 Intake and Output for Last 24 Hours 03/20/18 03/21/18 03/22/18 23:59 23:59 23:59 Intake Total 260 / 260 360 / 360 120 / 120 Balance 260 / 260 360 / 360 120 / 120 Current Medications Acetaminophen (Tylenol) 1,000 mg PO Q8 [facility] Last Admin: 03/22/18 05:16 Dose: 1,000 mg Aspirin (Ecotrin) 325 mg PO BIDCM [facility] Last Admin: 03/22/18 08:20 Dose: 325 mg Bisacodyl (Dulcolax) 10 mg RECTAL .PRN X 1 PRN PRN Reason: Constipation Brimonidine Tartrate (Brimonidine 0.2% 5ml Bottle) 1 drop EACH EYE BID [facility] Last Admin: 03/22/18 08:22 Dose: 1 drop Docusate Sodium (Colace) 100 mg PO BID PRN PRN PRN Reason: Constipation Last Admin: 03/20/18 14:10 Dose: 100 mg Famotidine (Pepcid) 40 mg PO DAILY [facility] Last Admin: 03/22/18 08:21 Dose: 40 mg Folic Acid (Folic Acid) 1 mg PO DAILY@0800 [facility] Last Admin: 03/22/18 08:21 Dose: 1 mg Lactulose (Chronulac, Cephulac) 20 gm PO DAILY PRN PRN Reason: Constipation Last Admin: 03/20/18 17:18 Dose: 20 gm Latanoprost (Xalatan Opthalmic) 1 drop OPHTHALMIC HS [facility] Last Admin: 03/21/18 21:30 Dose: 1 drop Lorazepam (Ativan) 0.5 mg PO QHS PRN PRN PRN Reason: INSOMNIA Last Admin: 03/21/18 21:29 Dose: 0.5 mg Magnesium Hydroxide (Milk Of Magnesia) 30 ml PO .PRN X 1 PRN PRN Reason: Constipation Last Admin: 03/20/18 14:10 Dose: 30 ml Melatonin (Melatonin) 3 mg PO QHS [facility] Last Admin: 03/21/18 21:30 Dose: 3 mg Multivitamins/Minerals (Multivitamin With Minerals) 1 tablet PO DAILY@0800 [facility] Last Admin: 03/22/18 08:20 Dose: 1 tablet Ondansetron HCl (Zofran Odt) 4 mg PO Q8H PRN PRN PRN Reason: NAUSEA Last Admin: 03/20/18 04:25 Dose: 4 mg Oxycodone HCl (Oxyir) 5 mg PO Q4H PRN PRN PRN Reason: SEVERE PAIN (6-10/10) Last Admin: 03/22/18 06:36 Dose: 5 mg Pantoprazole Sodium (Protonix) 20 mg PO DAILY [facility] Last Admin: 03/22/18 08:21 Dose: 20 mg Polyethylene Glycol (Miralax) 17 gm PO BID [facility] Last Admin: 03/22/18 08:23 Dose: 17 gm Polysaccharide Iron Complex ([facility]rex 150) [facility] Last Admin: 03/22/18 08:21 Dose: 150 mg Senna/Docusate Sodium (Senokot-S, Rafia-Colace) 2 tablet PO BID [facility] Last Admin: 03/22/18 08:25 Dose: 2 tablet Timolol Maleate (Timoptic) 1 drop EACH EYE BID [facility] Last Admin: 03/22/18 08:21 Dose: 1 drop Tolterodine Tartrate (Detrol La) 2 mg PO DAILY [facility] Last Admin: 03/22/18 08:21 Dose: 2 mg Verapamil HCl (Calan Sr) 360 mg PO DAILY [facility] Last Admin: 03/22/18 08:21 Dose: 360 mg Medical Necessity - Tobacco Use Smoking Status: Never smoker Tobacco Use: Non-smoker Assessment/Plan 72-year-old lady who underwent left total knee arthroplasty by Dr. Vazquez on 03/07/2018 subsequently transferred to the inpatient rehab unit to continue with her recuperation 1. Status post left total knee arthroplasty on 03/11/2018 2. Acute blood loss anemia following surgery monitoring H&H 3. Hypertension-blood pressure controlled, home medications continued with dose adjustment as needed 4. GERD 5. DVT prophylaxis aspirin 325 mg p.o. twice daily as recommended by Ortho Code Visit Inpatient E&M: 37675 Subs Hosp L2
--- NOTE | 2018-03-22 10:44 | PCM.RU.DC ---
Rehab Discharge Summary DATE OF ADMISSION: 03/09/18 DATE OF DISCHARGE: 03/22/18 - Rehab Diagnosis Left TKR Discharge Diet: No Restrictions Discharge Activity: May Not Drive - Until cleared by Surgeon, May not drive while taking narcotic pain medications., May Shower - Do no rub incision site dry, only PAT dry, Use Walker, - - Soak In a Tub Bath until cleared by Dr. Vazquez your Surgeon Weight Bearing Status: Weight bearing as tolerated Call your doctor if your incision/area has: Increased Pain/ Swelling, Increased Redness, Foul Smelling Discharge, Swelling at the incision site Call your doctor if you observe: Fever of 101 or Higher, Coldness, Increased Pain, Numbness or Tingling, Change in Color, Inability to urinate, Inability to have a bowel movement, Using more than one pad per hour, Shortness of breath, Dizziness, Fainting spells, Swelling in the ankles, Chest pain, Prolonged hiccoughing, Increased palpitations (irregular heartbeat), Calf discomfort, Uncontrolled pain Cleanse incision/area with: Soap & Water - let water run off of site, DO not Rub site Pat Dry Only Home Medications: Medications to take at Discharge Verapamil HCl 360 mg PO DAILY 07/16/16 proMETHazine tablet [Phenergan tablet] 25 mg PO Q4H PRN PRN #10 tab 06/28/17 Diazepam 10 mg PO PRN PRN 02/28/18 Aspirin E.C. [Ecotrin] 325 mg PO BID 03/09/18 Famotidine [Pepcid] 40 mg PO DAILY 03/09/18 Folic Acid 1 mg PO DAILY@0800 03/09/18 Multivit with Calcium,Iron,Min [Multiple Vitamins For Women] 1 each PO DAILY 03/09/18 Oxycodone HCl/Acetaminophen [Percocet 5-325] 1 - 2 tab PO Q4H PRN PRN #60 tab 03/09/18 Brimonidine Tartrate 0.2% [Brimonidine 0.2% 5Ml Bottle] 1 drop EACH EYE BID bottle 03/22/18 Latanoprost 0.005% [Xalatan Opthalmic] 1 drop OPHTHALMIC HS bottle 03/22/18 Melatonin 3 mg PO QHS tablet 03/22/18 Timolol 0.5% [Timoptic] 1 drop EACH EYE BID opth.btl 03/22/18 Tolterodine Tartrate [Detrol LA] 2 mg PO DAILY #30 cap.sa 03/22/18 Following Prescrptions Were Given to Patient: Tolterodine Tartrate [Detrol LA] 2 mg PO DAILY #30 cap. Primary Care Physician: Lazaro Moise MD [Primary Care Provider] - Please Follow Up With: Dr Lazaro Moise When: Tuesday Please Follow Up With: Cody Cedeño PA-C Please Follow Up With: DO Derek Vazquez When: Tuesday Disposition: Home - With outpatient Physical therapy and Occupational therapy Minutes spent on discharge:: 40 Patient Condition:: Good Rehab Course The patient is a 72 year old Female who was admitted to the rehab unit for rehabilitation following a left total knee arthroplasty on 03/07/[address] Vazquez.Without complications. Patient has a past medical history of hypertension, GERD, chronic constipation, iron deficiency anemia, and anxiety. She lives with her grandson in a two story home with 5 steps to get in the home. Her plan is to go to her granddaughter house after discharge from the Rehab unit. She was previous completely functionally independent and is admitted to the rehab unit in order to restore her previous level of functional independence. With Physical therapy, she is stand by assistance for mobility getting in and out of bed, and going from a sitting to a standing position. She is able to walk about 165 feet with a walker at stand by assist. she has been able to go up and down two steps at contact guard. Her range of motion is still limited at 82 degrees of flexion as of last week. With Occupational therapy, she is supervision for bathing and all her personal care. she does require some help with getting her sock and shoe on her left foot, she is able to get it on her right foot with out any problems. With Nursing she continues to have issues with pain, we continued the Oxy IR and increase the dosage, schedule her Tylenol along with it, obtained a Sed rate which was elevated at 87, informed Dr. Vazquez , he ordered an X-ray of her knee, which showed the hardware intact, and no acute issues, we also obtained several Doppler which where all negative. She is also having frequent urinary which is not new for her, she was scheduled to see a Urology after her surgery, will set this up and in the meantime will started her on Detrol 2mg daily. She is requesting discharge a day earlier. Will discharge with outpatient Physical therapy, and Occupational therapy along with scripts for pain medications, and other medications that was started in the hospital. Meaningful Use Info Meaningful Use Diagnoses (Choose all that apply): None applicable
--- NOTE | 2018-03-22 13:01 | PCM.DC ---
- Discharge Diagnoses Reason(s) for Visit for Discharge Instructions: Left TKR You will use the following diet at home:: Regular Your food should be the consistency of: Regular Your liquids should be the consistency of: Regular/Thin Discharge Activity: May Not Drive - Until cleared by Surgeon, May not drive while taking narcotic pain medications., May Shower - Do no rub incision site dry, only PAT dry, Use Walker, - - Soak In a Tub Bath until cleared by Dr. Vazquez your Surgeon Weight Bearing Status: Weight bearing as tolerated Call your doctor if your incision/area has: Increased Pain/ Swelling, Increased Redness, Foul Smelling Discharge, Swelling at the incision site Call your doctor if you observe: Fever of 101 or Higher, Coldness, Increased Pain, Numbness or Tingling, Change in Color, Inability to urinate, Inability to have a bowel movement, Using more than one pad per hour, Shortness of breath, Dizziness, Fainting spells, Swelling in the ankles, Chest pain, Prolonged hiccoughing, Increased palpitations (irregular heartbeat), Calf discomfort, Uncontrolled pain Cleanse incision/area with: Soap & Water - let water run off of site, DO not Rub site Pat Dry Only Allergies/Adverse Reactions: Allergies codeine Adverse Reaction (Verified 02/28/18 14:26) Nausea latex Adverse Reaction (Verified 03/08/18 20:53) Rash tape causes blisters tramadol [From [facility]] Adverse Reaction (Verified 03/09/18 06:29) Itching Medications to take at Discharge Verapamil HCl 360 mg PO DAILY 07/16/16 proMETHazine tablet [Phenergan tablet] 25 mg PO Q4H PRN PRN #10 tab 06/28/17 Diazepam 10 mg PO PRN PRN 02/28/18 Aspirin E.C. [Ecotrin] 325 mg PO BID 03/09/18 Famotidine [Pepcid] 40 mg PO DAILY 03/09/18 Folic Acid 1 mg PO DAILY@0800 03/09/18 Multivit with Calcium,Iron,Min [Multiple Vitamins For Women] 1 each PO DAILY 03/09/18 Oxycodone HCl/Acetaminophen [Percocet 5-325] 1 - 2 tab PO Q4H PRN PRN #60 tab 03/09/18 Brimonidine Tartrate 0.2% [Brimonidine 0.2% 5Ml Bottle] 1 drop EACH EYE BID bottle 03/22/18 Latanoprost 0.005% [Xalatan Opthalmic] 1 drop OPHTHALMIC HS bottle 03/22/18 Melatonin 3 mg PO QHS tablet 03/22/18 Timolol 0.5% [Timoptic] 1 drop EACH EYE BID opth.btl 03/22/18 Tolterodine Tartrate [Detrol LA] 2 mg PO DAILY #30 cap.sa 03/22/18 The following prescriptions were given: Tolterodine Tartrate [Detrol LA] 2 mg PO DAILY #30 cap. Primary Care Physician: Lazaro Moise MD [Primary Care Provider] - Please Follow Up With: Dr Lazaro Moise When: Tuesday Please Follow Up With: Cody Cedeño PA-C Please Follow Up With: DO Derek Vazqeuz When: Tuesday Proposed Discharge Date: 03/22/18
--- NOTE | 2018-03-22 13:49 | NURSING ---
patient verbalized understanding of d/c instructions. per patient her prn oxyir and routine tylenol effective for pain this shift. patient rates pain 1-2/10. patient ambulated > 150 ft with walker multiple times this shift in hallway.
== END 2018-03-22 14:00 | disposition home or self-care (01) | DRG 560 ==
PROVIDERS: Nurse Practitioner Acute Care; Admitting Provider Psychiatry & Neurology Neurology; Family Provider Family Medicine; PCP Family Medicine; Visit Provider Internal Medicine
DX: Z47.1 Aftercare following joint replacement surgery (principal); D62 Acute posthemorrhagic anemia; Z96.652 Presence of left artificial knee joint; E78.5 Hyperlipidemia, unspecified; I10 Essential (primary) hypertension; E87.6 Hypokalemia; K21.9 Gastro-esophageal reflux disease without esophagitis; K59.09 Other constipation; D50.9 Iron deficiency anemia, unspecified; R35.0 Frequency of micturition; F41.9 Anxiety disorder, unspecified; G47.00 Insomnia, unspecified
CPT/HCPCS: 36415; 73562; 80048; 85025; 85652; 86140; 93970; 93971; 97110; 97116; 97162; 97166; 97530; 97535; A4216

== ENCOUNTER → 2018-04-05 12:52 | Outpatient (CLI) | payer MEDICARE, OTHER, MEDICAID, SELFPAY ==
--- NOTE | 2018-04-05 12:55 | RAD_ITS ---
STUDY: X-RAY - LEFT KNEE REASON FOR EXAM: Female, 72 years old. Pain TECHNIQUE: Four view(s) of the knee were obtained. COMPARISON: March 20, 2018 FINDINGS: There is a prosthesis in the distal femur. There is a prosthesis in the tibial plateau. Normal medial femorotibial compartment. Normal lateral femorotibial compartment. There are surgical changes in the patella. There is moderate fullness above the patella. The soft tissue structures are unremarkable. RAD/Knee 4 or More Views IMPRESSION: No acute abnormalities are seen in the left knee. There are stable arthroplasty changes. There is a small to moderate joint effusion which is decreased in size compared to the prior study. Electronically Signed: Jade Aguilera MD at 1:54 EDT Tel Direct: [phone], Service support ,
== END ==
PROVIDERS: Family Provider Family Medicine; PCP Family Medicine; Visit Provider Orthopaedic Surgery
DX: M25.562 Pain in left knee (principal); Z96.652 Presence of left artificial knee joint
CPT/HCPCS: 73564; 97110

== ENCOUNTER 2018-05-11 16:00 | Outpatient (RCR) | payer MEDICARE, OTHER, MEDICAID, SELFPAY ==
--- NOTE | 2018-03-31 15:06 | HP.PTEVAL_ITS ---
Patient's Visit Information CLAUDIA REED is a 72 year old F referred to Physical Therapy by ARIELLA ReyesC with a diagnosis of L TKA. Date of Evaluation: 03/31/18 Physical Therapist: Sanchez Washington, PT, - Visit Plan Frequency: 3x /Week Duration: 4-6 Weeks Plan: L knee stretching and strengthening, balance and proprio, core stab, nustep, HEP - Subjective Subjective: DOS: 03/07/18. Pt had a L TKA performed secondary to having pain for several years prior to this surgery. Pt is glad she had the surgery at this time. Pt notes she stayed at the TCU for 2 weeks having therapy until coming to outpatient PT. Pt reports she is still in a lot of pain at this time. No T or N at this time. Occasional sleep diff secondary to pain. Pt notes she has stairs at home but has not negotiated any to this date. Pt notes she wants to get better quick to help take care of her grandchildren. 5/10 at rest, 10/10 at worst (just staying busy) - Pain L knee Pain Intensity (Out of 10): 5 Pain Intensity Range: 10 - Objective Neuro: B LE sensation is WNL to light touch. B achilles reflex= 2/3. Girth at joint line: R knee 39 CM, L knee 43 cm. Observation: Incision is healing well. No obvious signs of infection. ROM: R knee 0-105 degrees; L knee 0-6-96. MMT: R knee 5/5 throughout; L knee is 3+/5 throughout - Goals Goal 1:: Decrease L knee pain x 50% to aid with sleep Goal Time Frame: 4-6 Weeks Goal 2:: Increase L knee strength x 1 grade to aid with stair negotiation Goal Time Frame: 4-6 Weeks Goal 3:: Increase L knee ROM x 10 degrees to aid with funtional mobility Goal Time Frame: 4-6 Weeks Goal 4:: I with HEP Goal Time Frame: 4-6 Weeks - Rehabilitation Potential Physical Therapy Diagnosis: L knee pain, weakness, and limited ROM secondary to L TKA Rehabilitation Potential: Good - Anticipated Interventions Patient/Client Instruction: Educate patient on: Condition, Plan of Care For the Purpose of:: To improve self management Therapeutic Exercise to Include: Strength training, Endurance training, Balance training, Gait and locomotor training, Passive ROM, Active ROM, Dynamic Lumbar Stabilization For the Purpose of:: To decrease pain, To increase ROM, To improve muscle performance and motor function Cryotherapy (ice pack, ice massage): Yes For the Purpose of:: To decrease pain Thank you for the opportunity to evaluate your patient. For Medicare and Medicare HMO plans, please review the plan of care and approve it. It will need to be FAXED BACK to us at [phone] for Medicare purposes. Please let me know if there are questions or concerns regarding this plan of care. Physician Signature: Date:
--- NOTE | 2018-05-11 16:22 | HP.PTREVAL_ITS ---
Diane Nevarez, ARIELLA-C, It has been my pleasure to treat CLAUDIA REED over the last 9 visits for L TKA. Please see the progress note below for an update on the physical therapy plan of care! Subjective: Minor pain this date Objective/Function: L knee pain 01/21. L knee ROM: 0-7-120. L knee MMT: ext= 4/ 5, flex= 3/5. Pt is progressing well toward Rx goals Plan Plan: Cont after DrBarrett visit Goals Goal 1:: Decrease L knee pain x 50% to aid with sleep Goal Time Frame: 4-6 Weeks Goal Progress: Progressing Goal 2:: Increase L knee strength x 1 grade to aid with stair negotiation Goal Time Frame: 4-6 Weeks Goal Progress: Progressing Goal 3:: Increase L knee ROM x 10 degrees to aid with funtional mobility Goal Time Frame: 4-6 Weeks Goal Progress: Progressing Goal 4:: I with HEP Goal Time Frame: 4-6 Weeks Goal Progress: Progressing Anticipated Interventions Patient/Client Instruction: Educate patient on: Condition, Plan of Care For the Purpose of:: To improve self management Therapeutic Exercise to Include: Strength training, Endurance training, Balance training, Gait and locomotor training, Passive ROM, Active ROM, Dynamic Lumbar Stabilization For the Purpose of:: To decrease pain, To increase ROM, To improve muscle performance and motor function Cryotherapy (ice pack, ice massage): Yes For the Purpose of:: To decrease pain Please do not hesitate to contact me at [phone] by phone or Fax: if you have questions or concerns regarding this new plan of care! Sincerely, Sanchez Washington, PT,
--- NOTE | 2018-07-26 07:43 | HP.PT.NRP ---
HP - Discharge Summary (1) - Patient Information CLAUDIA REED was seen in my office for initial evaluation on 03/31/18. The following Plan of Care was established for this patient: Initial Frequency: 3x /Week Initial Duration: 4-6 Weeks - Anticipated Interventions Patient/Client Instruction: Educate patient on: Condition, Plan of Care For the Purpose of:: To improve self management Therapeutic Exercise to Include: Strength training, Endurance training, Balance training, Gait and locomotor training, Passive ROM, Active ROM, Dynamic Lumbar Stabilization For the Purpose of:: To decrease pain, To increase ROM, To improve muscle performance and motor function Cryotherapy (ice pack, ice massage): Yes For the Purpose of:: To decrease pain This patient was last seen in our office . Pertinent comments regarding their Physical therapy will appear below: Pt was last treated on the date of 05/18/18 for her TKA. Pt did not show for her last 3 scheduled appointments, and has not returned through todays date. Pt is therefore discontinued at this time. At this point I will be discontinuing this patient from physical therapy. I would be happy to see this patient again in the future if found appropriate by the physician. Thank you! Sanchez Washington, PT,
== END 2018-05-11 19:00 | disposition home or self-care (01) ==
LOC: PT 16:00
PROVIDERS: Family Provider Family Medicine; PCP Family Medicine; Visit Provider Nurse Practitioner Acute Care
DX: Z96.652 Presence of left artificial knee joint (principal)
CPT/HCPCS: 97110; 97161; 97530

== ENCOUNTER → 2018-06-21 18:15 | Outpatient (CLI) | payer MEDICARE, OTHER, MEDICAID, SELFPAY | PROVIDERS: Visit Provider Nurse Practitioner Family | DX: R82.99 Other abnormal findings in urine (principal); Z96.652 Presence of left artificial knee joint ==

== ENCOUNTER → 2018-07-03 16:14 | Outpatient (CLI) | payer MEDICARE, OTHER, MEDICAID, SELFPAY ==
[2018-07-03 17:55] LABS: Absolute Lymphocyte Count 2.12 X10^3/ul (0.83-4.51); Absolute Neutrophil Count 2.4 X10^3/uL (2.0-7.7); Basophil# 0.01 X10^3/uL; Basophil% 0.2 % (0-1); Eosinophil# 0.06 X10^3/uL; Eosinophils% 1.2 % (0-5); Hematocrit 31.3 % (37-47); Hemoglobin 9.7 g/dl (12.0-15.0); Lymphocyte # 2.12 X10^3/ul (4.0); Lymphocyte % 42.1 % (19-41); Mean Corpuscular Hgb 26.3 pg (27.0-32.0); Mean Corpuscular Volume 84.8 fL (81-99); Mean Platelet Vol. 9.8 fl (6.2-12.0); Monocyte# 0.49 X10^3/uL; Monocyte% 9.7 % (0-10); Neutrophil # 2.36 X10^3/uL (2.7-7.7); Neutrophil % 46.8 % (47-70); Platelet Count 310 K/mm3 (150-450); RBC Distribution Width CV 15.2 % (11.6-14.6); RBC Distribution Width SD 47.5 fl (35.1-43.9); Red Blood Count 3.69 M/mm3 (4.2-5.4)
[2018-07-03 18:05] LABS: POSITIVE COUNT NO; POSITIVE DIFFERENTIAL NO; POSITIVE MORPHOLOGY NO
[2018-07-03 18:17] LABS: Anion Gap 7 (5-15); BUN 22 mg/dL (7-18); BUN/Creat Ratio 11.8 RATIO (10-20); Calcium,Total 9.2 mg/dL (8.5-10.1); Chloride 106 mmol/L (98-107); Cholesterol 243 mg/dL (200); Creatinine, Serum 1.87 mg/dL (0.55-1.02); EST Glomerular Filtration Rate 28 mL/min (>60); Est Glom Filt Rate - Afr Amer 34 mL/min (>60); Glucose 82 mg/dL (74-106); High Density Lipoprotein 51 mg/dL; Potassium 4.1 mmol/L (3.5-5.1); Sodium Level 141 mmol/L (136-145); Triglycerides 95 mg/dL; Very Low Density Lipoprotein 19 mg/dL (5-40)
== END ==
PROVIDERS: PCP Family Medicine; Visit Provider Family Medicine
DX: E78.00 Pure hypercholesterolemia, unspecified (principal); D50.9 Iron deficiency anemia, unspecified; R60.0 Localized edema
CPT/HCPCS: 36415; 80048; 80061; 85025

== ENCOUNTER 2018-07-14 09:25 | Day surgery (SDC) | payer MEDICARE, OTHER, MEDICAID, SELFPAY ==
[2018-07-14 09:48] VITALS: BP 137/65; PULSE 77; RESP 16; TEMP 36.1; O2SAT 94; BMI 40.9
--- NOTE | 2018-07-14 11:00 | TESH_PTH ---
PATIENT: CLAUDIA REED LOC: [facility] [place] U#:[id number] AGE/SX: 72/F ROOM: RE07/14/[address]: Dr. Florence Finley DO : 1945 BED: DIS: 07/14/2018 SPEC #: [id number] RECD: 07/18/18 09:10 STATUS: CLIFF BERTRAM #: [id number] KEVON: 07/14/18 11:[address]: Florence Finley DEPT: SURGICAL PATHOLOGY RECD BY: Briseida Obrien ENTERED: 07/18/18 10:27 SP TYPE: TENDON OTHR DR: Dr. Lazaro Moise MD Tissues: Tendon and tendon sheath, NOS Procedures: Surgery Specimen Level III HEADER OPERATION: Right hand palmar tendon debulking PRE-OP DIAGNOSIS: Rupture of flexor tendon of right hand TISSUE SUBMITTED: Right hand flexor tendon MICROSCOPIC DIAGNOSIS Right hand flexor tendon: A piece of dense fibroconnective tissue with reactive changes. KAT:mariah 07/19/18 MICROSCOPIC DESCRIPTION Slides are reviewed. GROSS DESCRIPTION Received in fixative is one container labeled with the patient's name and designated right hand flexor tendon. The specimen consists of a firm fragment of nodular white tissue measuring 1.3 x 1 x 1 cm. The specimen is sectioned and totally submitted in one cassette. / AM:mariah 07/18/18 TC:5 CPT: 34288
[2018-07-14] MEDS: Cefazolin 2 GM in 0.9% Normal Saline 100 ML IV (11:05)
--- NOTE | 2018-07-14 11:13 | PCM.DC.ORTHO ---
Discharge Diet: No Restrictions - leave dressing on until seen in postop clinic, keep clean and dry, call with concerns Discharge Activity: May Not Drive May shower in (days): 1 Ice area for (Minutes): 20 - Every hour while awake. Weight Bearing Status: Weight bearing as tolerated Keep extremity elevated above heart level: Operative Extremity Call your doctor if your incision/area has: Continuous Slow Oozing, Sudden Increased Bleeding, Increased Pain/ Swelling, Increased Redness, Foul Smelling Discharge Call your doctor if you observe: Fever of 101 or Higher, Coldness, Increased Pain, Numbness or Tingling, Change in Color, Calf discomfort Allergies/Adverse Reactions: Allergies codeine Adverse Reaction (Verified 07/06/18 08:15) Nausea latex Adverse Reaction (Verified 07/06/18 08:15) Rash tape causes blisters tramadol [From Ultram] Adverse Reaction (Verified 07/06/18 08:15) Itching Medications to take at Discharge Verapamil HCl 360 mg PO DAILY 07/16/16 Multivit with Calcium,Iron,Min [Multiple Vitamins For Women] 1 ea PO DAILY 03/09/18 Latanoprost 0.005% [Xalatan Opthalmic] 1 drp OPHTHALMIC HS bottle 03/22/18 Timolol 0.5% [Timoptic] 1 drp EACH EYE BID opth.btl 03/22/18 Atorvastatin Calcium [Lipitor] 20 mg PO QHS 07/11/18 Pantoprazole Sodium [Protonix] 40 mg PO DAILY 07/11/18 Hydrocodone Bitart/Apap 5-325 [[place] 5MG-325MG] 1 - 2 tablet PO Q6H PRN PRN 5 Days #40 tablet 07/14/18 The following prescriptions were given: Hydrocodone Bitart/Apap 5-325 [[place] 5MG-325MG] 1 - 2 tablet PO Q6H PRN PRN 5 Days #40 tablet PRN Reason: Pain Primary Care Physician: Lazaro Moise MD [Primary Care Provider] - Test Results: Test results from this visit will be discussed in further detail at your follow-up appointment, if applicable. Please Follow Up With: Florence Finley, - [phone]
--- NOTE | 2018-07-14 11:14 | OP.PCM_ITS ---
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 I sent her to hand see if there is anything they could do for her she was unable to bend her finger they stated that because of the length of time from her initial injury she was not a great candidate for surgeries perspective but that she could have a tendon debulking. Patient return back to my office and she would like me to do the tendon debulking. We discussed risks benefits and alternatives surgery. Risks including but not limited to blood loss, blood clot , infection, neurovascular injury, failure procedure, loss of life and loss of limb. Patient is aware would like to proceed with right hand flexor tendon debulking and [id number] repair to her flexor superficialis. Operative note Patient seen and examined preoperative holding area. Right hand was marked. We palpated the mass the flexor tendon in the preop holding area and marked out prior to bring her back to the room. The patient was placed on the operating room table signing, anesthesia and antibiotics were administered. The right hand was prepped and draped in usual sterile fashion with a tourniquet around her upper arm. Marked out our incision for our debulking. Arm was elevated exsanguinated and tourniquet was raised her pressure of 250 torr. Timeout was performed. We made a incision starting at her mid palmar crease and extending it just proximal at the level of the palpable defect palpable mass. We did this and a Tinel's like incision. We then dissected down with tenotomies down to level of the palpable flexor tendon that was balled up and took a couple pictures for family and per the chart. We developed the back concerns protect all neurovascular structures throughout the case. We could visualize and were able to isolate the flexor to flexor superficialis is after the tendon so we repaired the flexors profundus to the superficialis proximal to the tear and then truncated the flexor profundus at the ball debrided and sent it to pathology for further evaluation. The incision was cut was irrigated with copious amounts of sterile saline. The wound was closed with interrupted 4-0 nylon sutures sterile dressings were applied the tourniquet was deflated for total working time of 32 mins. Sterile dressings were applied and a splint was applied to the right hand ulnar gutter splint. Patient was transferred to recovery room in stable condition. Patient trans-tolerated procedure well there are no comp occasions. Postoperative note Weight-bear as tolerated right hand maintain sling at all times hospital pharmacy has prescription Call with increased pain numbness tingling further issues arise Follow-up in 2 weeks Splint at all times This note was generated with [employer] / [employer] dictation software. It may contain incorrect words, spelling, and punctuation that were not noted in checking the note before signing.
[2018-07-14] MEDS: Bupivacaine 0.5% PF 10 ML VIAL (12:02)
[2018-07-14] MEDS: Mupirocin Ointment 22gm Tube 1 APPLIC (12:03)
[2018-07-14 12:18] VITALS: BP 117/67; BP 137/65; PULSE 64; RESP 15; TEMP 36.4; O2SAT 88
[2018-07-14 12:30] VITALS: BP 121/68; BP 137/65; PULSE 59; RESP 15; O2SAT 95
[2018-07-14 12:46] VITALS: BP 131/67; BP 137/65; PULSE 63; RESP 14; O2SAT 92
[2018-07-14 13:00] VITALS: BP 137/65; BP 146/69; PULSE 53; RESP 16; TEMP 36.2; O2SAT 93
[2018-07-14] MEDS: HYDROcodone Bitartrate/Apap 5/325 Tablet PO (13:50)
[2018-07-14 14:02] VITALS: BP 135/59; BP 137/65; PULSE 63; RESP 16; TEMP 36; O2SAT 95
== END 2018-07-14 14:02 | disposition home or self-care (01) ==
LOC: SDC 09:26 → AC 09:27
PROVIDERS: Family Provider Family Medicine; PCP Family Medicine; Visit Provider Orthopaedic Surgery
PROC: (CPT 26370; principal; 2018-07-14 10:45)
DX: S66.811A Strain of other specified muscles, fascia and tendons at wrist and hand level, right hand, initial encounter (principal); I10 Essential (primary) hypertension; E78.00 Pure hypercholesterolemia, unspecified; D64.9 Anemia, unspecified; Z79.82 Long term (current) use of aspirin; Z79.899 Other long term (current) drug therapy; X58.XXXA Exposure to other specified factors, initial encounter; Y93.9 Activity, unspecified; Y92.9 Unspecified place or not applicable; Y99.9 Unspecified external cause status
CPT/HCPCS: 01810; 26370; 88304; J7120; J2405

== ENCOUNTER → 2018-09-21 17:30 | Outpatient (CLI) | payer MEDICARE, OTHER, MEDICAID, SELFPAY ==
--- NOTE | 2018-09-21 17:22 | BI_ITS ---
MAMMOGRAPHY - BILATERAL SCREENING REASON FOR EXAM: Female, 73 years old. Routine annual screening examination. PERTINENT HISTORY: Non-contributory. TECHNIQUE: Digital bilateral breast maria luisa (3D mammographic acquisition) in the CC and MLO projections. 2-D mediolateral oblique (MLO) and craniocaudad (CC) views of both breasts were obtained. CAD: Full Field Digital Mammography with Computer Added Detection was performed. COMPARISON: Comparison is made with prior study dated July 20, 20272016 and September 30, 2015. FINDINGS: Breast Composition: The breasts are almost entirely fatty. There are no dominant masses or suspicious calcifications. No other significant abnormalities are identified. There has been no significant change since the prior study. BI/SCREENING MAMM (CAD), BILAT IMPRESSION: Stable bilateral screening mammogram. Yearly follow-up mammogram recommended. (A) ASSESSMENT CATEGORY: BIRADS Category 1: Negative. A letter regarding these results will be sent to the patient by the facility within 30 days. Approximately 10% of breast cancers are not detected by mammography. A normal mammogram should not delay biopsy of a clinically suspicious abnormality. [id number] Electronically Signed: Duy Lopez MD at 8:05 EST Tel [phone], Service support ,
== END ==
PROVIDERS: Family Provider Family Medicine; PCP Family Medicine; Referring Provider Family Medicine; Visit Provider Family Medicine
DX: Z12.31 Encounter for screening mammogram for malignant neoplasm of breast (principal)
CPT/HCPCS: 77063; 77067

== ENCOUNTER 2018-10-03 13:00 | Outpatient (RCR) | payer MEDICARE, OTHER, MEDICAID, SELFPAY ==
--- NOTE | 2018-08-03 16:33 | HP.OTEVAL_ITS ---
Patient's Visit Information SHARON REED is a 72 year old F, referred to Occupational Therapy by Florence Finley DO, with a diagnosis of R flexor tendon repair. Date of Evaluation: 08/03/18 Occupational Therapist: Jade Urban - Subjective Subjective: Sharon arrived and noted that she had flexor tendon repair 07/14/18 due to hitting hand on banister at home. Unsure how injury occurred but noted it swelled up and went to see Dr. Finley which confirmed injury. Nothing on hand at start of session. - Pain Right Hand 1 Pain Intensity Range: 1, 6 - Objective Objective/Observation: scar glued together and glue starting to peel upward. Sensitive and increased scar formation over volar scar at palm. - ROM Shoulder: WFL Elbow: WFL Forearm: WFL MP: flexion 4th 0-66, 5th 3-51 PIP: flexion R 4th 0-66, 5th 5-75 - Strength Service Delivery Management Consultant: R to be tested later when appropriate, L 70 Lateral Pinch: R to be tested later when appropriate, L 14 Tripod Pinch: R to be tested later when appropriate, L 12 Tip-to-Tip Pinch: R to be tested later when appropriate, L 7 - Sensation Sensation Comments: Notes touchiness around finger, no nerve repair noted, will need to debride and complete scar massage next session to help desensitize. Further testing to occur. - DASH-Disabilities of Arm, Shoulder& Hand DASH Sum: 131 - Goals Goal:100% adherence to protocol: Yes Comment: R hand Goal:Daily scar massage when approriate: Yes Comment: R hand at volar scar at zone 4-5th region over 4 &5th MCp Goal:ROM equal to unaffected hand: Yes Goal:Service Delivery Management Consultant/Pinch strength at least 75% of unaffected hand: Yes Goal:No pain with affected hand use: Yes Comment: R hand Goal:Full use of affected hand in daily activities including: Yes Comment: R hand Goal:Improvement in sensation documented by [place]: Yes Comment: R hand Goal:Decrease scar hypersensitivity: Yes Comment: R hand - Rehabilitation General Assessment: OT evaluation on this date. Sharon arrived with nothing on hand. Incision closed with glue but glue is peeling up. Incision will need debridement. Dorsal blocking splint fabricated at this time. Increased scar tissue noted. She is to return at the latest at the beginning of next week to promote adjustment of splint as needed to promote fit as well as received Hep as left prior to receiving handout on exercises. ROM, strength, and functional use of R dominant hand is limited at this time. OT needed to promote increased tendon glide, ROM, and strengthening, and ability to return to all ADl/IADls to promote returning to PLOF and complete meaning full tasks by d/c. Rehabilitation Potential: Good - Anticipated Interventions Anticipated Interventions: Early Active Motion, A/AAROM/PROM, Strengthening, Edema Control, Scar Care, Desensitization, Wound Care, Modalities, Joint Protection/Energy Conservation, Ergonomic Education, Fine Motor Coord/Jose J, ADL Training, Caregiver Training, Home Program - Visit Plan Frequency: 2-3x /Week Duration: 4-6 Weeks General Plan: OT to work on increasing ROM, strength, and return to normal ADL/ IADls at PLOF through PRE and ADl/IADls retraining to promote QOL and ability to use R hand by d/c. TEXT: Thank you for the opportunity to evaluate your patient. For Medicare and Medicare HMO plans, please review the plan of care and approve it. It will need to be FAXED BACK to us at [phone] for Medicare purposes. Please let me know if there are questions or concerns regarding this plan of care. Physician Signature: Date:
--- NOTE | 2018-10-03 13:55 | HP.OTDCSUM_ITS ---
HP - OT D/C Summary It has been my pleasure to treat CLAUDIA REED under orders from Florence Finley DO, for the diagnosis of R flexor tendon repair for a total of 9 visit(s). Please see the following information for a summary of their discharge status. - Objective Objective/Function: Reassessment completed on this date of 10/03/18. Measurements are as follows: Fingers ROM: RF. -MCP: 0-85. -PIP: 0-101. - DIP: 0-42. PF. -MCP: 0-87. -PIP: 14-71. -DIP: 19-24. Circumference: RF PIP R 6.2 cm, L 6.1 cm. PF PIP R 5.4cm , L 5.4 cm. Strength: line helper: R 45, L 71. lateral pinch R 16, L 12. tripod: R 10, L 11. Pincer: R 6, L 7 lbs. Sensation with Monofilament test: R 2nd 2.83 ,3rd 2.83 ,4th 3.22 ,5th 3.61 thumb 3.22. L 2nd 2.83, 3rd 2.83, 4th 2.83,5th 2.83, thumb 2.83. 9 hole pegboard test: R 22. 92 s. L 24. 10 s. Increased scar tissue formation on palmar scar. She has progressed since initial evaluation and will be discharged at this time. - Goals Patient Goals: Regain Mobility, Regain Strength, Decrease Pain, Decrease Swelling/Stiffness, Improve Fine Motor Skills, Use Hand/Wrist/Arm Normally Again, Sleep Better, Increase ROM, Be More Independent in ADLS, Decrease Sensitivity, Resume Former Household Responsibilities (Cooking,Cleaning,Yard, etc.), Resume Hobbies Goal:100% adherence to protocol: Yes Goal:Daily scar massage when approriate: Yes Goal:ROM equal to unaffected hand: Yes Goal:Telephone Claims Representative/Pinch strength at least 75% of unaffected hand: Yes Goal:No pain with affected hand use: Yes Goal:Full use of affected hand in daily activities including: Yes Goal:Improvement in sensation documented by [place]Elli: Yes Goal:Decrease scar hypersensitivity: Yes - Plan Plan: Pt. will be d/c'd . She would prefer to complete strengthening at home with HEP of putty and desensitization protocol as it is getting colder and harder for her to get out. She noted she is completing most tasks at home and feels she is back 90%. She noted when answering DASH questionnaire some of the increased difficulty is due to shoulder and other body parts. She is progressing well and is to call with questions/ concerns. - D/C Information If there are questions or concerns regarding this patient's occupational therapy, please fell free to call me at [phone]. Thank you for the referral of this patient. Sincerely, Jade Urban
== END 2018-10-03 19:00 | disposition home or self-care (01) ==
LOC: OT 13:00
PROVIDERS: Family Provider Family Medicine; PCP Family Medicine; Visit Provider Orthopaedic Surgery
DX: M67.90 Unspecified disorder of synovium and tendon, unspecified site (principal)
CPT/HCPCS: 97035; 97110; 97140; 97166; 97168; 97530; 97760; 97763

== ENCOUNTER → 2018-10-31 17:15 | Outpatient (CLI) | payer MEDICARE, OTHER, MEDICAID, SELFPAY ==
--- NOTE | 2018-10-31 | IMM_PTH ---
PATIENT: CLAUDIA REED LOC: [facility] U#:[id number] AGE/SX: 80/F ROOM: RE10/31/[address]: Dr. Sanjeev Narvaez MD : 1945 BED: DIS: SPEC #: [id number] RECD: 11/02/18 14:29 STATUS: CLIFF RERhonda #: [id number] KEVON: 10/31/18 00:[address]: Sanjeev Narvaez DEPT: IMMUNOHISTOCHEMISTRY RECD BY: Stefanie Lopez ENTERED: 11/02/18 14:30 SP TYPE: IMMUNO OTHR DR: Dr. Lazaro Moise MD Tissues: Stomach, NOS Procedures: H Pylori (initial) PHYSICIAN & INSTITUTION [place] [id number] SPECIMEN INFORMATION: Tissue Source: Gastric antrum/body, biopsy Clinical Info: GERD Specimen Number: [id number] CPT code: 99675 METHODOLOGY: Deparaffinized sections of prefer/formalin-fixed tissue or PAP/DQ stained slides are incubated with monoclonal/polyclonal antibodies/oligonucleotide probes. Localization is made via biotin free immunoperoxidase method. Appropriate controls are performed and reacted as expected. Results on target cell population are indicated in the following table: RESULTS: ANTIBODY / CLONE RESULT H Pylori (polyclonal) negative These tests were developed and their performance characteristics determined by [facility]. They may not have been cleared or approved by the U.S. Food and Drug Administration. The FDA has determined that such clearance or approval is not necessary. INTERPRETATION: Gastric antrum/body, biopsy: Negative for Helicobacter pylori organisms. SJ:mariah 11/03/18
--- NOTE | 2018-10-31 09:58 | EGD_PTH ---
PATIENT: CLAUDIA REED LOC: [facility] U#:[id number] AGE/SX: 80/F ROOM: RE10/31/[address]: Dr. Sanjeev Narvaez MD : 1945 BED: DIS: SPEC #: [id number] RECD: 10/31/18 16:10 STATUS: CLIFF BERTRAM #: [id number] KEVON: 10/31/18 09:[address]: Sanjeev Narvaez DEPT: SURGICAL PATHOLOGY RECD BY: Dm Casiano ENTERED: 11/01/18 10:23 SP TYPE: EGD BIOPSY OT DR: Dr. Lazaro Moise MD [facility] Tissues: Gastric mucous membrane Procedures: Surgery Specimen Level IV HEADER OPERATION: EGD with biopsy PRE-OP DIAGNOSIS: GERD TISSUE SUBMITTED: Biopsy gastric antrum/body, rule out gastritis MICROSCOPIC DIAGNOSIS Gastric antrum/body, biopsy: Mild gastritis. See microscopic description and comment. SJ:mariah 12/20/18 COMMENT The results of immunohistochemistry for Helicobacter pylori will be reported separately ([id number]). MICROSCOPIC DESCRIPTION Slides are reviewed. The specimen shows fragments of gastric mucosa with chronic inflammatory cell infiltrates in the lamina propria consisting of lymphocytes and plasma cells, consistent with mild chronic gastritis. GROSS DESCRIPTION Received in fixative is one container labeled with the patient's name and designated gastric biopsy. The specimen consists of multiple irregular fragments of light harden soft tissue that in aggregate measure 0.6 x 0.5 x 0.1 cm. The specimen is totally submitted in one cassette. / AM:mariah 11/01/18 TC:3 [facility]: [id number]
--- OUTSIDE RECORDS SUMMARY | 2019-02-02 05:50 | XMS RPT_ITS ---
:1945 Author Organization OHIP Support Name Relationship Address Phone INOCENCIO REED Unavailable [address] + [place] [address] REED, JACKIE Unavailable [address] + [address] [place] [address] R Unavailable Unavailable Unavailable REED, INOCENCIO Unavailable [address] + [place] [address] REED, JACKIE Unavailable [address] + [address] [place] [address] R Unavailable Unavailable Unavailable REED, INOCENCIO Unavailable [address] + [place] [address] REED, JACKIE Unavailable [address] + [address] [place] [address] R Unavailable Unavailable Unavailable REED, INOCENCIO Unavailable [address] + [place] [address] REED, JACKIE Unavailable [address] + [address] [place] [address] R Unavailable Unavailable Unavailable REED, INOCENCIO Unavailable [address] + [place] [address] REED, JACKIE Unavailable [address] + [address] [place] [address] R Unavailable Unavailable Unavailable REED, INOCENCIO Unavailable [address] + [place] [address] REED, JACKIE Unavailable [address] + [address] [place] [address] R Unavailable Unavailable Unavailable REED, INOCENCIO Unavailable [address] + [place] [address] REED, JACKIE Unavailable [address] + [address] [place] [address] R Unavailable Unavailable Unavailable REED, INOCENCIO Unavailable [address] + [place] [address] REED, JACKIE Unavailable [address] + [address] [place] [address] R Unavailable Unavailable Unavailable REED, INOCENCIO Unavailable [address] + [place] [address] REED, JACKIE Unavailable [address] + [address] [place] [address] R Unavailable Unavailable Unavailable REED, INOCENCIO Unavailable [address] + [place] [address] REED, JACKIE Unavailable [address] + [address] [place] [address] R Unavailable Unavailable Unavailable REED, INOCENCIO Unavailable [address] + [place] [address] REED, JACKIE Unavailable [address] + [address] [place] [address] R Unavailable Unavailable Unavailable REED, INOCENCIO Unavailable [address] + [place] [address] REED, JACKIE Unavailable [address] + [address] [place] [address] R Unavailable Unavailable Unavailable REED, INOCENCIO Unavailable [address] + [place] [address] REED, JACKIE Unavailable [address] + [address] [place] [address] R Unavailable Unavailable Unavailable REED, INOCENCIO Unavailable [address] + [place] [address] REED, JACKIE Unavailable [address] + [address] [place] [address] R Unavailable Unavailable Unavailable REED, INOCENCIO Unavailable [address] + [place] [address] REED, JACKIE Unavailable [address] + [address] [place] [address] R Unavailable Unavailable Unavailable REED, INOCENCIO Unavailable [address] + [place] [address] REED, JACKIE Unavailable [address] + [address] [place] [address] R Unavailable Unavailable Unavailable REED, INOCENCIO Unavailable [address] + [place] [address] REED, JACKIE Unavailable [address] + [address] [place] [address] R Unavailable Unavailable Unavailable REED, INOCENCIO Unavailable [address] + [place] [address] REED, JACKIE Unavailable [address] + [address] [place] [address] R Unavailable Unavailable Unavailable REED, INOCENCIO Unavailable [address] + [place] [address] REED, JACKIE Unavailable [address] + [address] [place] [address] R Unavailable Unavailable Unavailable REED, INOCENCIO Unavailable [address] + [place] [address] REED, JACKIE Unavailable [address] + [address] [place] [address] R Unavailable Unavailable Unavailable REED, INOCENCIO Unavailable [address] + [place] [address] REED, JACKIE Unavailable [address] + [address] [place] [address] R Unavailable Unavailable Unavailable REED, INOCENCIO Unavailable [address] + [place] [address] REED, JACKIE Unavailable [address] + [address] [place] [address] R Unavailable Unavailable Unavailable REED, INOCENCIO Unavailable [address] + [place] [address] REED, JACKIE Unavailable [address] + [address] [place] [address] R Unavailable Unavailable Unavailable REED, INOCENCIO Unavailable [address] + [place] [address] REED, JACKIE Unavailable [address] + [address] [place] [address] R Unavailable Unavailable Unavailable REED, INOCENCIO Unavailable [address] + [place] [address] REED, JACKIE Unavailable [address] + [address] [place] [address] R Unavailable Unavailable Unavailable REED, INOCENCIO Unavailable [address] + [place] [address] REED, JACKIE Unavailable [address] + [address] [place] [address] R Unavailable Unavailable Unavailable REED, INOCENCIO Unavailable [address] + [place] [address] REED, JACKIE Unavailable [address] + [address] [place] [address] R Unavailable Unavailable Unavailable REED, INOCENCIO Unavailable [address] + [place] [address] REED, JACKIE Unavailable [address] + [address] [place] [address] R Unavailable Unavailable Unavailable REED, INOCENCIO Unavailable [address] + [place] [address] REED, JACKIE Unavailable [address] + [address] [place] [address] R Unavailable Unavailable Unavailable REED, INOCENCIO Unavailable [address] + [place] [address] REED, JACKIE Unavailable [address] + [address] [place] [address] R Unavailable Unavailable Unavailable REED, INOCENCIO Unavailable [address] + [place] [address] REED, JACKIE Unavailable [address] + [address] [place] [address] R Unavailable Unavailable Unavailable REED, INOCENCIO Unavailable [address] + [place] [address] REED, JACKIE Unavailable [address] + [address] [place] [address] R Unavailable Unavailable Unavailable REED, INOCENCIO Unavailable [address] + [place] [address] REED, JACKIE Unavailable [address] + [address] [place] [address] R Unavailable Unavailable Unavailable REED, INOCENCIO Unavailable [address] + [place] [address] REED, JACKIE Unavailable [address] + [address] [place] [address] R Unavailable Unavailable Unavailable REED, INOCENCIO Unavailable [address] + [place] [address] JACKIE REED Unavailable [address] + [address] [place] [address] R Unavailable Unavailable Unavailable Care Team Providers Name Role Phone MINA CONLEY (AMADEO) Attending Unavailable Chicorelli, Florence Attending Unavailable Sorensen, Lazaro Referring Unavailable Sorensen, Lazaro Attending Unavailable Sorensen, Lazaro Referring Unavailable Sorensen, Lazaro Primary Care Unavailable Chicorelli, Florence Attending Unavailable Chicorelli, Florence Attending Unavailable Sorensen, Lazaro Referring Unavailable Chicorelli, Florence Attending Unavailable Sorensen, Lazaro Primary Care Unavailable Chicorelli, Florence Referring Unavailable Chicorelli, Florence Attending Unavailable Sorensen, Lazaro Referring Unavailable Sorensen, Lazaro Attending Unavailable Constantino Mosqueda Attending Unavailable Sorensen, Lazaro Primary Care Unavailable Constantino Mosqueda Referring Unavailable JaSanjeev overton Attending Unavailable Solange, Sanjeev Referring Unavailable Sorensen, Lazaro Primary Care Unavailable Derek Vazquez Admitting Unavailable George, Derek Attending Unavailable George, Derek Referring Unavailable Sorensen, Lazaro Primary Care Unavailable Derek Vazquez Consulting Unavailable George, Derek Admitting Unavailable George, Derek Attending Unavailable George, Derek Referring Unavailable Sorensen, Lazaro Primary Care Unavailable Derek Vazquez Consulting Unavailable Chicorelli, Florence Attending Unavailable Chicorelli, Florence Referring Unavailable Sorensen, Lazaro Primary Care Unavailable George, Derek Admitting Unavailable George, Derek Attending Unavailable George, Derek Referring Unavailable Sorensen, Lazaro Primary Care Unavailable George, Derek Attending Unavailable Sorensen, Lazaro Referring Unavailable Sorensen, Lazaro Primary Care Unavailable Chicorelli, Florence Attending Unavailable Sorensen, Lazaro Referring Unavailable Sorensen, Lazaro Primary Care Unavailable Chicorelromeo, Florence Attending Unavailable Sorensen, Lazaro Primary Care Unavailable Chicorelli, Florence Referring Unavailable Chicorelli, Florence Attending Unavailable Sorensen, Lazaro Referring Unavailable Sorensen, Lazaro Primary Care Unavailable Sorensen, Lazaro Primary Care Unavailable Sorensen, Lazaro Referring Unavailable George, Derek Attending Unavailable Chicorelli, Florence Attending Unavailable Sorensen, Lazaro Referring Unavailable Sorensen, Lazaro Primary Care Unavailable Chicorelli, Florence Attending Unavailable Sorensen, Lazaro Referring Unavailable Sorensen, Lazaro Primary Care Unavailable George, Derek Attending Unavailable George, Derek Referring Unavailable Sorensen, Lazaro Primary Care Unavailable George, Derek Attending Unavailable Sorensen, Lazaro Referring Unavailable Sorensen, Lazaro Primary Care Unavailable Jaron Miles Attending Unavailable Beka Roman Referring Unavailable Diane Nevarez HIGH PRESSURE CLEANER-C Attending Unavailable Diane Nevarez HIGH PRESSURE CLEANER-C Referring Unavailable Sorensen, Lazaro Primary Care Unavailable Reji Mckeon Admitting Unavailable Aftab Alvarado Attending Unavailable Mike, Reji S. Referring Unavailable Sorensen, Lazaro Primary Care Unavailable Tereletsky, Juwan Consulting Unavailable Kittoe, Aftab Consulting Unavailable Mike, Reji S. Admitting Unavailable Kittoe, Aftab Attending Unavailable Mike, Reji S. Referring Unavailable Sorensen, Lazaro Primary Care Unavailable Tereletsky, Juwan Consulting Unavailable Kittoe, Aftab Consulting Unavailable Mike, Reji S. Admitting Unavailable Jopperi, Beka Attending Unavailable Mike, Reji S. Referring Unavailable Sorensen, Lazaro Primary Care Unavailable Tereletsky, Juwan Consulting Unavailable Jopperi, Beka Consulting Unavailable Mike, Reji S. Admitting Unavailable Jopperi, Beka Attending Unavailable Mike, Reji S. Referring Unavailable Sorensen, Lazaro Primary Care Unavailable Tereletsky, Juwan Consulting Unavailable Jopperi, Beka Consulting Unavailable Mike, Reji S. Admitting Unavailable Jopperi, Beka Attending Unavailable Mike, Reij S. Referring Unavailable Sorensen, Lazaro Primary Care Unavailable Tereletsky, Juwan Consulting Unavailable Jopperi, Beka Consulting Unavailable Mike, Reji S. Admitting Unavailable Kittoe, Aftab Attending Unavailable Mike, Reji S. Referring Unavailable Sorensen, Lazaro Primary Care Unavailable Tereletsky, Juwan Consulting Unavailable Kittoe, Aftab Consulting Unavailable Mike, Reji S. Admitting Unavailable Kittoe, Aftab Attending Unavailable Mike, Reji S. Referring Unavailable Sorensen, Lazaro Primary Care Unavailable Tereletsky, Juwan Consulting Unavailable Kittoe, Aftab Consulting Unavailable Sorensen, Lazaro Primary Care Unavailable Mike, Reji S. Admitting Unavailable Mike, Reji S. 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 [place] [facility] and tendon, Hospital unspecified site / Repository M67.90(ICD-10) 11/20/2018 Unknown Z12.31 - Encounter Lazaro Sorensen Active [place] for screening [facility] mammogram for Hospital malignant neoplasm Repository of breast / Z12.31(ICD-10) 08/01/2018 Unknown S66.811A - Strain of Chicorelli, Active [place] other specified [place] [facility] muscles, fascia and Hospital tendons at wrist and Repository hand level, right hand, initial encounter / S66.811A(ICD-10) 07/14/2018 Unknown G89.18 - Other acute Chicorelli, Active [place] postprocedural pain [place] [facility] / G89.18(ICD-10) Hospital Repository 07/26/2018 Unknown Z96.652 - Presence Diane Nevarez Active [place] of left artificial HIGH PRESSURE CLEANER-C Community knee joint / Hospital Z96.652(ICD-10) Repository 05/02/2018 Unknown S66.811D - Strain of Chicorelli, Active [place] other specified [facility] muscles, fascia and Hospital tendons at wrist and Repository hand level, right hand, subsequent encounter / S66.811D(ICD-10) 04/05/2018 Unknown M25.562 - Pain in Derek Vazquez Active [place] left knee / Community M25.562(ICD-10) Hospital Repository 04/04/2018 Unknown I10 - Essential Jaron Miles Active [place] (primary) Community hypertension / Hospital I10(ICD-10) Repository 03/21/2018 Unknown M79.641 - Pain in Chicorelli, Active [place] right hand / [place] [facility] M79.641(ICD-10) Hospital Repository 03/21/2018 Unknown M79.642 - Pain in Chicorelli, Active [place] left hand / [place] [facility] M79.642(ICD-10) Hospital Repository 03/21/2018 Unknown M65.332 - Trigger Chicorelli, Active [place] finger, left middle [place] [facility] finger / Hospital M65.332(ICD-10) Repository 03/21/2018 Unknown M65.341 - Trigger Chicorelli, Active [place] finger, right ring [place] [facility] finger / Hospital M65.341(ICD-10) Repository 03/21/2018 Unknown 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, left Hospital knee / Repository M17.12(ICD-10) 03/21/2018 Unknown M23.8X2 - Other Derek Vazquez Active [place] internal Community derangements of left Hospital knee / Repository M23.8X2(ICD-10) PROCEDURES PROCEDURES No Procedure Records FoundRESULTS RESULTS EGD ([facility] SITE) Observed: 10/31/2018 Status: F Source: [place] 9:58 AM [facility] [place] Patient: SHARON REED : 1945 (73/) Acct Num: [id number] Phys: Sanjeev Narvaez Unit Num: [id number] Loc: LABSPEC Specimen: [id number] Received: 10/31/181609 Spec Type: EGD BIOPSY TISSUES 1 TISSUES: Gastric mucous membrane COMMENT The results of immunohistochemistry for Helicobacter pylori will be reported separately ([id number]). GROSS DESCRIPTION Received in fixative is one container labeled with the patient's name and designated gastric biopsy. The specimen consists of multiple irregular fragments of light harden soft tissue that in aggregate measure 0.6 x 0.5 x 0.1 cm. The specimen is totally submitted in one cassette. / AM:mariah 11/01/18 TC:3 CPT: 45716 HEADER OPERATION: EGD with biopsy PRE-OP DIAGNOSIS: GERD TISSUE SUBMITTED: Biopsy gastric antrum/body, rule out gastritis MICROSCOPIC DESCRIPTION Slides are reviewed. The specimen shows fragments of gastric mucosa with chronic inflammatory cell infiltrates in the lamina propria consisting of lymphocytes and plasma cells, consistent with mild chronic gastritis. MICROSCOPIC DIAGNOSIS Gastric antrum/body, biopsy: Mild gastritis. See microscopic description and comment. SJ:mariah 11/02/18 Signed Yovani Dixon MD 11/02/18 <signature on file> Performed By: #### PEGD #### [facility] [place], [address] IMMUNOHISTOCHEMISTRY Observed: 10/31/2018 Status: F Source: [place] 12:00 AM [facility] Patient: SHARON REED : 1945 (73/F) Acct Num: [id number] Phys: Sanjeev Narvaez Unit Num: [id number] Loc: LABSPEC Specimen: [id number] Received: 11/02/18 117 Spec Type: IMMUNO TISSUES 1 TISSUES: Stomach, NOS SPECIMEN INFORMATION: Tissue Source: Gastric antrum/body, biopsy Clinical Info: GERD Specimen Number: [id number] CPT code: 29625 METHODOLOGY: Deparaffinized sections of prefer/formalin-fixed tissue or PAP/DQ stained slides are incubated with monoclonal/polyclonal antibodies/oligonucleotide probes. Localization is made via biotin free immunoperoxidase method. Appropriate controls are performed and reacted as expected. Results on target cell population are indicated in the following table: RESULTS: ANTIBODY / CLONE RESULT H Pylori (polyclonal) negative These tests were developed and their performance characteristics determined by [facility]. They may not have been cleared or approved by the U.S. Food and Drug Administration. The FDA has determined that such clearance or approval is not necessary. INTERPRETATION: Gastric antrum/body, biopsy: Negative for Helicobacter pylori organisms. SJ:mariah 11/03/18 PHYSICIAN AND INSTITUTION [place] [address] Signed Yovani Dixon MD 11/03/18 <signature on file> Performed By: #### PIMM #### [facility] [address] [place] [address]. [place], [place], [id number] ORTHOPEDIC VISIT Observed: 10/26/2018 Status: F Source: [place] REPORT 1:31 PM [facility] [address] [place] [address] OFFICE VISIT Date of Service: 10/19/18 MR#: [id number] Acct: [id number] Name: SHARON REED Rep #: [id number] : 1945 Provider: Florence Finley DO Age/Sex: 73/F Location: [facility] [place] Status: Signed Intake Intake Visit Reasons: RIGHT HAND Is patient in pain?: No Allergies codeine Adverse Reaction (Verified 10/19/18 13:56) Nausea latex Adverse Reaction (Verified 10/19/18 13:56) Rash tramadol [From Ultra] Adverse Reaction (Verified 10/19/18 13:56) Itching Medications Verapamil HCl 360 mg PO DAILY 07/16/16 [History Confirmed 07/11/18] Multivit with Calcium,Iron,Min [Multiple Vitamins For Women] 1 ea PO DAILY 03/09/18 [History Confirmed 07/11/18] Latanoprost 0.005% [Xalatan Opthalmic] 1 drp OPHTHALMIC HS bottle 03/22/18 [Rx Confirmed 07/11/18] Timolol 0.5% [Timoptic] 1 drp EACH EYE BID opth.btl 03/22/18 [Rx Confirmed 07/11/18] Atorvastatin Calcium [Lipitor] 20 mg PO QHS 07/11/18 [History Confirmed 07/11/18] Pantoprazole Sodium [Protonix] 40 mg PO DAILY 07/11/18 [History Confirmed 07/11/18] Hydrocodone Bitart/Apap 5-325 [[place] 5MG-325MG] 1 - 2 tab PO Q6H PRN PRN 5 Days #40 tab 07/14/18 [Rx] PFSH Medical History High cholesterol (Chronic) Hypertension (Chronic) Surgical History h/o right hand surgery (Acute) H/O arthroscopy of left knee (Inactive) H/O left knee replacement (Inactive) h/o left shoulder arthroscopy (Inactive) Social History Smoking Status: Never smoker HPI RIGHT HAND: Details: SHARON REED is a 73 year old F here today for s/p right hand surgery dos 07/14/18. She states that she has good and bad days. She completed therapy which was helpful. Patient has good range of motion that continues to improve. Her incision is getting softer. She states that she is able to touch her finger with less pain. Denies numbness, tingling or other associated symptoms. ROS Const Reports system reviewed and no additional complaints, except as docu Eyes Reports system reviewed and no additional complaints, except as docu ENT Reports system reviewed and no additional complaints, except as docu Card Reports system reviewed and no additional complaints, except as docu Resp Reports system reviewed and no additional complaints, except as docu GI Reports system reviewed and no additional complaints, except as docu Reports system reviewed and no additional complaints, except as docu Musc Reports limited joint movement Skin/Breast Reports system reviewed and no additional complaints, except as docu Neuro Yes system reviewed and no additional complaints, except as docu Psych Reports system reviewed and no additional complaints, except as docu Endo Reports system reviewed and no additional complaints, except as docu Ortho Exam Right Wrist/Hand Date of Surgery: 07/14/18 Skin/Wound: Yes healed Contralateral Normal: Yes A1 denise trigger: No WRIST: decreased 5th finger rom Assessment AND Plan 1. Hand pain, right M79.641 Plan Continue to use compression if needed and work on rom and HEP. Follow up as needed or sooner if pain, swelling, numbness or associated symptoms, or concerns develop. All questions answered. Patient in agreement of plan. Coding Level of Care Code Off vis,est,level 2 Diagnoses Hand pain, right M79.641 10/26/18 1331 <Electronically signed by Florence Finley DO> Date Florence Finley DO Cosigner Signature: Date (if applicable) CC: OT D/C SUMMARY Observed: 10/06/2018 Status: F Source: [place] 8:32 AM [facility] [address] [place] [address] [address] [place] [address] Fax REHABILITATION SERVICES DISCHARGE SUMMARY MR#: [id number] Acct: [id number] Name: SHARON REED Rep #: [id number] : 1945 73 From: Jade Urban Referring DrBarrett: Florence Finley DO Status: REG RCR Eval Date: Discharge Date: HP - OT D/C Summary It has been my pleasure to treat SHARON REED under orders from Florence Finley DO, for the diagnosis of R flexor tendon repair for a total of 9 visit(s). Please see the following information for a summary of their discharge status. - Objective Objective/Function: Reassessment completed on this date of 10/03/18. Measurements are as follows: Fingers ROM: RF. -MCP: 0-85. -PIP: 0-101. -DIP: 0-42. PF. -MCP: 0-87. -PIP: 14-71. -DIP: 19-24. Circumference: RF PIP R 6.2 cm, L 6.1 cm. PF PIP R 5.4cm , L 5.4 cm. Strength: bus company manager: R 45, L 71. lateral pinch R 16, L 12. tripod: R 10, L 11. Pincer: R 6, L 7 lbs. Sensation with Monofilament test: R 2nd 2.83 ,3rd 2.83 ,4th 3.22 ,5th 3.61 thumb 3.22. L 2nd 2.83, 3rd 2.83, 4th 2.83,5th 2.83, thumb 2.83. 9 hole pegboard test: R 22. 92 s. L 24. 10 s. Increased scar tissue formation on palmar scar. She has progressed since initial evaluation and will be discharged at this time. - Goals Patient Goals: Regain Mobility, Regain Strength, Decrease Pain, Decrease Swelling/Stiffness, Improve Fine Motor Skills, Use Hand/Wrist/Arm Normally Again, Sleep Better, Increase ROM, Be More Independent in ADLS, Decrease Sensitivity, Resume Former Household Responsibilities (Cooking,Cleaning,Yard, etc.), Resume Hobbies Goal:100% adherence to protocol: Yes Goal:Daily scar massage when approriate: Yes Goal:ROM equal to unaffected hand: Yes Goal:Sustainability Director/Pinch strength at least 75% of unaffected hand: Yes Goal:No pain with affected hand use: Yes Goal:Full use of affected hand in daily activities including: Yes Goal:Improvement in sensation documented by [place]: Yes Goal:Decrease scar hypersensitivity: Yes - Plan Plan: Pt. will be d/c'd . She would prefer to complete strengthening at home with HEP of putty and desensitization protocol as it is getting colder and harder for her to get out. She noted she is completing most tasks at home and feels she is back 90%. She noted when answering DASH questionnaire some of the increased difficulty is due to shoulder and other body parts. She is progressing well and is to call with questions/ concerns. - D/C Information If there are questions or concerns regarding this patient's occupational therapy, please fell free to call me at [phone]. Thank you for the referral of this patient. Sincerely, Jade Urban <Electronically signed by Jade Urban > 10/06/18 0832 CC: Florence Finley DO; Lazaro Sorensen MD [facility] Signed SCREENING MAMM (CAD), Observed: 09/21/2018 Status: F Source: [place] B[place] 5:28 PM [facility] Imaging Services [address] [place] [address] SCREENING MAMM (CAD), BILAT MR#: [id number] Acct: [id number] Name: SHARON REED Rep #: [id number] : 1945 F 73 From: Duy Lopez MD PCP: Lazaro Sorensen MD Status: PRE CLI Study: SCREENING MAMM (CAD), BILAT Date of Exam: 09/21/18 Exam# [id number] Ordering Dr: Lazaro Sorensen MD MAMMOGRAPHY - BILATERAL SCREENING REASON FOR EXAM: Female, 73 years old. Routine annual screening examination. PERTINENT HISTORY: Non-contributory. TECHNIQUE: Digital bilateral breast maria luisa (3D mammographic acquisition) in the CC and MLO projections. 2-D mediolateral oblique (MLO) and craniocaudad (CC) views of both breasts were obtained. CAD: Full Field Digital Mammography with Computer Added Detection was performed. COMPARISON: Comparison is made with prior study dated July 20, 20272016 and September 30, 2015. FINDINGS: Breast Composition: The breasts are almost entirely fatty. There are no dominant masses or suspicious calcifications. No other significant abnormalities are identified. There has been no significant change since the prior study. BI/SCREENING MAMM (CAD), BILAT IMPRESSION: Stable bilateral screening mammogram. Yearly follow-up mammogram recommended. (A) ASSESSMENT CATEGORY: BIRADS Category 1: Negative. A letter regarding these results will be sent to the patient by the facility within 30 days. Approximately 10% of breast cancers are not detected by mammography. A normal mammogram should not delay biopsy of a clinically suspicious abnormality. [id number] Electronically Signed: Duy Lopez MD at 8:05 EST Tel [phone], Service support , CC: Lazaro Sorensen MD Armor Reconnaissance Vehicle Crewman: Signed ORTHOPEDIC VISIT Observed: 09/12/2018 Status: F Source: [place] REPORT 1:49 PM [facility] Orthopaedics AND Sports Medicine [address] [place] [address] 5 [place] [address] OFFICE VISIT Date of Service: 09/07/18 MR#: [id number] Acct: [id number] Name: SHARON REED Rep #: [id number] : 1945 Provider: Florence Finley DO Age/Sex: 73/F Location: [facility] [place] Status: Signed Intake Intake Visit Reasons: right hand Is patient in pain?: Yes Allergies codeine Adverse Reaction (Verified 09/07/18 14:38) Nausea latex Adverse Reaction (Verified 09/07/18 14:38) Rash tramadol [From Ultra] Adverse Reaction (Verified 09/07/18 14:38) Itching Medications Verapamil HCl 360 mg PO DAILY 07/16/16 [History Confirmed 07/11/18] Multivit with Calcium,Iron,Min [Multiple Vitamins For Women] 1 ea PO DAILY 03/09/18 [History Confirmed 07/11/18] Latanoprost 0.005% [Xalatan Opthalmic] 1 drp OPHTHALMIC HS bottle 03/22/18 [Rx Confirmed 07/11/18] Timolol 0.5% [Timoptic] 1 drp EACH EYE BID opth.btl 03/22/18 [Rx Confirmed 07/11/18] Atorvastatin Calcium [Lipitor] 20 mg PO QHS 07/11/18 [History Confirmed 07/11/18] Pantoprazole Sodium [Protonix] 40 mg PO DAILY 07/11/18 [History Confirmed 07/11/18] Hydrocodone Bitart/Apap 5-325 [[place] 5MG-325MG] 1 - 2 tab PO Q6H PRN PRN 5 Days #40 tab 07/14/18 [Rx] PFSH Medical History High cholesterol (Chronic) Hypertension (Chronic) Surgical History h/o right hand surgery (Acute) H/O arthroscopy of left knee (Inactive) H/O left knee replacement (Inactive) h/o left shoulder arthroscopy (Inactive) Social History Smoking Status: Never smoker HPI right hand: Details: SHARON REED is a 73 year old F here today for a followup on her right hand, dos 07/14/18. She notes that she completed physical therapy last week and she continues to have tightness over her incision. Patient notes that she has a splint for her fingers but does not know where it is. She states that the tip of her 5th finger is very sensitive. She notes when her finger is touched, it feels like a nerve pain. Patient is unable to fully flex her finger actively as she was unable to do preop, but she can passively flex her finger. ROS Const Reports system reviewed and no additional complaints, except as docu Eyes Reports system reviewed and no additional complaints, except as docu ENT Reports system reviewed and no additional complaints, except as docu Card Reports system reviewed and no additional complaints, except as docu Resp Reports system reviewed and no additional complaints, except as docu GI Reports system reviewed and no additional complaints, except as docu Reports system reviewed and no additional complaints, except as docu Musc Reports joint pain Skin/Breast Reports system reviewed and no additional complaints, except as docu Neuro Yes system reviewed and no additional complaints, except as docu Psych Reports system reviewed and no additional complaints, except as docu Endo Reports system reviewed and no additional complaints, except as docu Ortho Exam Right Wrist/Hand Skin/Wound: Yes CDI, Yes healing, Yes Swelling Left Wrist/Hand Skin/Wound: Yes Swelling Assessment AND Plan 1. Orthopedic aftercare Z47.89 Plan discussed hypersensitivity and continue to work on desensitization but much of numbness has improved. idscussed working on flexn but that may never return fully as was discussed preop and the hand surgeon told her as well as unable to repair tendon d/t chornicity of injury. Educated on the process of nerve regeneration and that the tip of her finger is sensitive and that should continue to resolve. Instructed to work on desensitization and scar massage at home. Follow up 6wks or sooner if pain, swelling, numbness or associated symptoms, or concerns develop. All questions answered. Patient in agreement of plan. Coding Level of Care Code Global Post Op Diagnoses Orthopedic aftercare Z47.89 09/12/18 1349 <Electronically signed by Florence Finley DO> Date Florence Finley DO Cosigner Signature: Date (if applicable) CC: OT GENERAL EVALUATION Observed: 08/07/2018 Status: F Source: [place]NEY 12:50 PM [facility] Occupational Therapy [facility] [address] [place] [address]. [address] [place], [place] [address] Fax REHABILITATION SERVICES INITIAL EVALUATION MR#: [id number] Acct: [id number] Name: SHARON REED Rep #: [id number] : 1945 72 From: Jade Urban Referring Dr.: Florence Finley DO Status: REG RCR Insurance: MEDICARE PART A B Eval Date: Patient's Visit Information SHARON REED is a 72 year old F, referred to Occupational Therapy by Florence Finley DO, with a diagnosis of R flexor tendon repair. Date of Evaluation: 08/03/18 Occupational Therapist: Jade Urban - Subjective Subjective: Sharon arrived and noted that she had flexor tendon repair 07/14/18 due to hitting hand on banister at home. Unsure how injury occurred but noted it swelled up and went to see Dr. Finley which confirmed injury. Nothing on hand at start of session. - Pain Right Hand 1 Pain Intensity Range: 1, 6 - Objective Objective/Observation: scar glued together and glue starting to peel upward. Sensitive and increased scar formation over volar scar at palm. - ROM Shoulder: WFL Elbow: WFL Forearm: WFL MP: flexion 4th 0-66, 5th 3-51 PIP: flexion R 4th 0-66, 5th 5-75 - Strength Sustainability Director: R to be tested later when appropriate, L 70 Lateral Pinch: R to be tested later when appropriate, L 14 Tripod Pinch: R to be tested later when appropriate, L 12 Tip-to-Tip Pinch: R to be tested later when appropriate, L 7 - Sensation Sensation Comments: Notes touchiness around finger, no nerve repair noted, will need to debride and complete scar massage next session to help desensitize. Further testing to occur. - DASH-Disabilities of Arm, Shoulder AND Hand DASH Sum: 131 - Goals Goal:100% adherence to protocol: Yes Comment: R hand Goal:Daily scar massage when approriate: Yes Comment: R hand at volar scar at zone 4-5th region over 4 AND 5th MCp Goal:ROM equal to unaffected hand: Yes Goal:Sustainability Director/Pinch strength at least 75% of unaffected hand: Yes Goal:No pain with affected hand use: Yes Comment: R hand Goal:Full use of affected hand in daily activities including: Yes Comment: R hand Goal:Improvement in sensation documented by [place]: Yes Comment: R hand Goal:Decrease scar hypersensitivity: Yes Comment: R hand - Rehabilitation General Assessment: OT evaluation on this date. Sharon arrived with nothing on hand. Incision closed with glue but glue is peeling up. Incision will need debridement. Dorsal blocking splint fabricated at this time. Increased scar tissue noted. She is to return at the latest at the beginning of next week to promote adjustment of splint as needed to promote fit as well as received Hep as left prior to receiving handout on exercises. ROM, strength, and functional use of R dominant hand is limited at this time. OT needed to promote increased tendon glide, ROM, and strengthening, and ability to return to all ADl/IADls to promote returning to PLOF and complete meaning full tasks by d/c. Rehabilitation Potential: Good - Anticipated Interventions Anticipated Interventions: Early Active Motion, A/AAROM/PROM, Strengthening, Edema Control, Scar Care, Desensitization, Wound Care, Modalities, Joint Protection/Energy Conservation, Ergonomic Education, Fine Motor Coord/Jose J, ADL Training, Caregiver Training, Home Program - Visit Plan Frequency: 2-3x /Week Duration: 4-6 Weeks General Plan: OT to work on increasing ROM, strength, and return to normal ADL/IADls at PLOF through PRE and ADl/IADls retraining to promote QOL and ability to use R hand by d/c. TEXT: Thank you for the opportunity to evaluate your patient. For Medicare and Medicare HMO plans, please review the plan of care and approve it. It will need to be FAXED BACK to us at [phone] for Medicare purposes. Please let me know if there are questions or concerns regarding this plan of care. Physician Signature: Date: <Electronically signed by Jade Urban > 08/07/18 1250 CC: Florence Finley DO; Lazaro Sorensen MD KMB Signed For Medicare only, by signing this I certify the plan of care. Physicians Signature Date ORTHOPEDIC VISIT Observed: 08/01/2018 Status: F Source: [place]ACQUELINE REPORT 12:10 PM [facility] Orthopaedics AND Sports Medicine [address] [place] [address] OFFICE VISIT Date of Service: 07/28/18 MR#: [id number] Acct: [id number] Name: SHARON REED Rep #: [id number] : 1945 Provider: Florence Finley DO Age/Sex: 72/F Location: [facility] [place] Status: Signed Intake Intake Visit Reasons: right hand Is patient in pain?: No Allergies codeine Adverse Reaction (Verified 07/28/18 09:22) Nausea latex Adverse Reaction (Verified 07/28/18 09:22) Rash tramadol [From Ultram] Adverse Reaction (Verified 07/28/18 09:22) Itching Medications Verapamil HCl 360 mg PO DAILY 07/16/16 [History Confirmed 07/11/18] Multivit with Calcium,Iron,Min [Multiple Vitamins For Women] 1 ea PO DAILY 03/09/18 [History Confirmed 07/11/18] Latanoprost 0.005% [Xalatan Opthalmic] 1 drp OPHTHALMIC HS bottle 03/22/18 [Rx Confirmed 07/11/18] Timolol 0.5% [Timoptic] 1 drp EACH EYE BID opth.btl 03/22/18 [Rx Confirmed 07/11/18] Atorvastatin Calcium [Lipitor] 20 mg PO QHS 07/11/18 [History Confirmed 07/11/18] Pantoprazole Sodium [Protonix] 40 mg PO DAILY 07/11/18 [History Confirmed 07/11/18] Hydrocodone Bitart/Apap 5-325 [[place] 5MG-325MG] 1 - 2 tab PO Q6H PRN PRN 5 Days #40 tab 07/14/18 [Rx] PFSH Medical History High cholesterol (Chronic) Hypertension (Chronic) Surgical History h/o right hand surgery (Acute) H/O arthroscopy of left knee (Inactive) H/O left knee replacement (Inactive) h/o left shoulder arthroscopy (Inactive) Social History Smoking Status: Never smoker HPI right hand: Details: SHARON REED is a 72 year old F here today for s/p right tendon debridement dos 07/14/18. Patient notes that she has no pain but her incision is opening up. She denies any drainage and has kept it covered with bandaids. Denies numbness, tingling or other associated symptoms. ROS Const Reports system reviewed and no additional complaints, except as docu Eyes Reports system reviewed and no additional complaints, except as docu ENT Reports system reviewed and no additional complaints, except as docu Card Reports system reviewed and no additional complaints, except as docu Resp Reports system reviewed and no additional complaints, except as docu GI Reports system reviewed and no additional complaints, except as docu Reports system reviewed and no additional complaints, except as docu Skin/Breast Reports system reviewed and no additional complaints, except as docu Neuro Yes system reviewed and no additional complaints, except as docu Psych Reports system reviewed and no additional complaints, except as docu Endo Reports system reviewed and no additional complaints, except as docu Assessment AND Plan 1. Orthopedic aftercare Z47.89 Plan Applied dermabond to patients incision. She should continue to monitor her incision and if any changes contact our office. Follow up in 4 weeks for 6 week post op or sooner if pain, swelling, numbness or associated symptoms, or concerns develop. All questions answered. Patient in agreement of plan. Coding Level of Care Code Global Post Op Diagnoses Orthopedic aftercare Z47.89 08/01/18 1210 <Electronically signed by Florence Finley DO> Date Florence Finley DO Cosigner Signature: Date (if applicable) CC: ORTHOPEDIC VISIT Observed: 08/01/2018 Status: F Source: JACQUELINE REPORT 11:32 AM [facility] Orthopaedics AND Sports Medicine [address] [place] [address] OFFICE VISIT Date of Service: 07/27/18 MR#: [id number] Acct: [id number] Name: SHARON REED Rep #: [id number] : 1945 Provider: Florence Finley DO Age/Sex: 72/F Location: [facility] [place] Status: Signed Intake Intake Visit Reasons: RIGHT HAND Is patient in pain?: No Allergies codeine Adverse Reaction (Verified 07/28/18 09:22) Nausea latex Adverse Reaction (Verified 07/28/18 09:22) Rash tramadol [From Ultram] Adverse Reaction (Verified 07/28/18 09:22) Itching Medications Verapamil HCl 360 mg PO DAILY 07/16/16 [History Confirmed 07/11/18] Multivit with Calcium,Iron,Min [Multiple Vitamins For Women] 1 ea PO DAILY 03/09/18 [History Confirmed 07/11/18] Latanoprost 0.005% [Xalatan Opthalmic] 1 drp OPHTHALMIC HS bottle 03/22/18 [Rx Confirmed 07/11/18] Timolol 0.5% [Timoptic] 1 drp EACH EYE BID opth.btl 03/22/18 [Rx Confirmed 07/11/18] Atorvastatin Calcium [Lipitor] 20 mg PO QHS 07/11/18 [History Confirmed 07/11/18] Pantoprazole Sodium [Protonix] 40 mg PO DAILY 07/11/18 [History Confirmed 07/11/18] Hydrocodone Bitart/Apap 5-325 [[place] 5MG-325MG] 1 - 2 tab PO Q6H PRN PRN 5 Days #40 tab 07/14/18 [Rx] PFSH Medical History High cholesterol (Chronic) Hypertension (Chronic) Surgical History h/o right hand surgery (Acute) H/O arthroscopy of left knee (Inactive) H/O left knee replacement (Inactive) h/o left shoulder arthroscopy (Inactive) Social History Smoking Status: Never smoker HPI RIGHT HAND: Details: SHARON REED is a 72 year old F here today for s/p right hand tendon debridement dos 07/14/18. Patient notes that she has a little pain. Patient has been wearing her splint at all times. Patient denies any pain medications. Denies any fevers or chills. Denies numbness, tingling or other associated symptoms. ROS Const Reports system reviewed and no additional complaints, except as docu Eyes Reports system reviewed and no additional complaints, except as docu ENT Reports system reviewed and no additional complaints, except as docu Card Reports system reviewed and no additional complaints, except as docu Resp Reports system reviewed and no additional complaints, except as docu GI Reports system reviewed and no additional complaints, except as docu Reports system reviewed and no additional complaints, except as docu Musc Reports joint pain Skin/Breast Reports system reviewed and no additional complaints, except as docu Neuro Yes system reviewed and no additional complaints, except as docu Psych Reports system reviewed and no additional complaints, except as docu Endo Reports system reviewed and no additional complaints, except as docu Ortho Exam Right Wrist/Hand Date of Surgery: 07/14/18 Skin/Wound: Yes suture/mitali removed, Yes healing, Yes Swelling Contralateral Normal: Yes A1 denise trigger: No WRIST: decreased finger rom Left Wrist/Hand Skin/Wound: Yes Swelling Right Ankle Skin/Wound: Yes suture/mitali removed Assessment AND Plan 1. Orthopedic aftercare Z47.89 Plan Personally reviewed the surgical images if available, the surgery procedure and reviewed the post op care instructions. Monitor for signs of infection, redness, warmth, swelling in excess, drainage, opening of incision site/sites, and/or fever. Instructed to begin to use hand normally. Gave OT script today. Follow up in a month or sooner if pain, swelling, numbness or associated symptoms, or concerns develop. All questions answered. Patient in agreement of plan. Coding Level of Care Code Global Post Op Diagnoses Orthopedic aftercare Z47.89 08/01/18 1132 <Electronically signed by Florence Finley DO> Date Florence Finley DO Cosigner Signature: Date (if applicable) CC: OPERATIVE REPORT Observed: 07/18/2018 Status: F Source: JACQUELINE 11:59 AM [facility] Medical Records Department [address] [place] [address] Operative Report 07/14/18 1114 MR#: [id number] Acct: [id number] Name: SHARON REED Rep #: [id number] : 1945 72 From: Florence Finley DO PCP: Lazaro Sorensen MD Status: [facility] Location: [facility] [place] Report of Operation Date of Procedure: 07/14/18 Pre-Operative Diagnosis: right fifth finger flexor tendon chronic rupture and pain in palm at site of retraction Post-Operative Diagnosis: same Surgery/Procedure Performed:: right hand torn flexor profundus tendon debridement and side to side repair to flexor superficialis supervisor type photography: Kody Gonzáles Type of Anesthesia:: General, Local Anesthesiologist: Jorge Masters Specimen's removed: chronic flexor tendon tear Estimated Blood Loss (mL): minimal Fluids Replaced: 500ml lr Description of Procedure: Preoperative note Patient is a 72-year-old female with a chronic right flexor profundus tear. I sent her to hand see if there is anything they could do for her she was unable to bend her finger they stated that because of the length of time from her initial injury she was not a great candidate for surgeries perspective but that she could have a tendon debulking. Patient return back to my office and she would like me to do the tendon debulking. We discussed risks benefits and alternatives surgery. Risks including but not limited to blood loss, blood clot, infection, neurovascular injury, failure procedure, loss of life and loss of limb. Patient is aware would like to proceed with right hand flexor tendon debulking and [id number] repair to her flexor superficialis. Operative note Patient seen and examined preoperative holding area. Right hand was marked. We palpated the mass the flexor tendon in the preop holding area and marked out prior to bring her back to the room. The patient was placed on the operating room table signing, anesthesia and antibiotics were administered. The right hand was prepped and draped in usual sterile fashion with a tourniquet around her upper arm. Marked out our incision for our debulking. Arm was elevated exsanguinated and tourniquet was raised her pressure of 250 torr. Timeout was performed. We made a incision starting at her mid palmar crease and extending it just proximal at the level of the palpable defect palpable mass. We did this and a Tinel's like incision. We then dissected down with tenotomies down to level of the palpable flexor tendon that was balled up and took a couple pictures for family and per the chart. We developed the back concerns protect all neurovascular structures throughout the case. We could visualize and were able to isolate the flexor to flexor superficialis is after the tendon so we repaired the flexors profundus to the superficialis proximal to the tear and then truncated the flexor profundus at the ball debrided and sent it to pathology for further evaluation. The incision was cut was irrigated with copious amounts of sterile saline. The wound was closed with interrupted 4-0 nylon sutures sterile dressings were applied the tourniquet was deflated for total working time of 32 mins. Sterile dressings were applied and a splint was applied to the right hand ulnar gutter splint. Patient was transferred to recovery room in stable condition. Patient trans-tolerated procedure well there are no comp occasions. Postoperative note Weight-bear as tolerated right hand maintain sling at all times hospital pharmacy has prescription Call with increased pain numbness tingling further issues arise Follow-up in 2 weeks Splint at all times This note was generated with [employer] dictation software. It may contain incorrect words, spelling, and punctuation that were not noted in checking the note before signing. 07/18/18 1159 <Electronically signed by Florence Finley DO> Date Florence Finley DO CC: Florence Finley DO; Lazaro Sorensen MD Signed DISCHARGE INSTRUCTION Observed: 07/14/2018 Status: F Source: KINNEY 11:57 AM [facility] Medical Records Department [address] [place] [address] Instructions for Home/Discharge Instructions 07/14/18 1113 MR#: [id number] Acct: [id number] Name: SHARON REED Rep #: [id number] : 1945 72 From: Florence Finley DO PCP: Lazaro Sorensen MD Status: REG SDC Discharge Diet: No Restrictions - leave dressing on until seen in postop clinic, keep clean and dry, call with concerns Discharge Activity: May Not Drive May shower in (days): 1 Ice area for (Minutes): 20 - Every hour while awake. Weight Bearing Status: Weight bearing as tolerated Keep extremity elevated above heart level: Operative Extremity Call your doctor if your incision/area has: Continuous Slow Oozing, Sudden Increased Bleeding, Increased Pain/ Swelling, Increased Redness, Foul Smelling Discharge Call your doctor if you observe: Fever of 101 or Higher, Coldness, Increased Pain, Numbness or Tingling, Change in Color, Calf discomfort Allergies/Adverse Reactions: Allergies codeine Adverse Reaction (Verified 07/06/18 08:15) Nausea latex Adverse Reaction (Verified 07/06/18 08:15) Rash tape causes blisters tramadol [From [facility]] Adverse Reaction (Verified 07/06/18 08:15) Itching Medications to take at Discharge Verapamil HCl 360 mg PO DAILY 07/16/16 Multivit with Calcium,Iron,Min [Multiple Vitamins For Women] 1 ea PO DAILY 03/09/18 Latanoprost 0.005% [Xalatan Opthalmic] 1 drp OPHTHALMIC HS bottle 03/22/18 Timolol 0.5% [Timoptic] 1 drp EACH EYE BID opth.btl 03/22/18 Atorvastatin Calcium [Lipitor] 20 mg PO QHS 07/11/18 Pantoprazole Sodium [Protonix] 40 mg PO DAILY 07/11/18 Hydrocodone Bitart/Apap 5-325 [[place] 5MG-325MG] 1 - 2 tablet PO Q6H PRN PRN 5 Days #40 tablet 07/14/18 The following prescriptions were given: Hydrocodone Bitart/Apap 5-325 [[place] 5MG-325MG] 1 - 2 tablet PO Q6H PRN PRN 5 Days #40 tablet PRN Reason: Pain Primary Care Physician: Lazaro Sorensen MD [Primary Care Provider] - Test Results: Test results from this visit will be discussed in further detail at your follow-up appointment, if applicable. Please Follow Up With: Florence Finley DO - [phone] 07/14/18 1157 <Electronically signed by Florence Finley DO> Date Florence Finley DO CC: Lazaro Sorensen MD TENDON/OR TENDON Observed: 07/14/2018 Status: F Source: JACQUELINE SHEATH 11:00 AM [facility] Patient: SHARON REED : 1945 (72/F) Acct Num: [id number] Phys: Florence Finley DO Unit Num: [id number] Loc: [facility] Specimen: [id number] Received: 07/18/18909 Spec Type: TENDON TISSUES TISSUES: Tendon and tendon sheath, NOS GROSS DESCRIPTION Received in fixative is one container labeled with the patient's name and designated right hand flexor tendon. The specimen consists of a firm fragment of nodular white tissue measuring 1.3 x 1 x 1 cm. The specimen is sectioned and totally submitted in one cassette. / AM:rg 07/18/18 TC:5 CPT: 25813 HEADER OPERATION: Right hand palmar tendon debulking PRE-OP DIAGNOSIS: Rupture of flexor tendon of right hand TISSUE SUBMITTED: Right hand flexor tendon MICROSCOPIC DESCRIPTION Slides are reviewed. MICROSCOPIC DIAGNOSIS Right hand flexor tendon: A piece of dense fibroconnective tissue with reactive changes. SJ:mariah 07/19/18 Signed Yovani Dixon 07/19/18 <signature on file> Performed By: #### PTESH #### [facility] [address] [place], [address] ORTHOPEDIC VISIT Observed: 07/06/2018 Status: F Source: KINNEY REPORT 10:29 AM [facility] Orthopaedics AND Sports Medicine [address] [place] [address] OFFICE VISIT Date of Service: 07/06/18 MR#: [id number] Acct: [id number] Name: SHARON REED Dao Rep #: [id number] : 1945 Provider: Florence Finley DO Age/Sex: 72/F Location: [facility] [place] Status: Signed Intake Intake Visit Reasons: left hand Is patient in pain?: No Allergies codeine Adverse Reaction (Verified 07/06/18 08:15) Nausea latex Adverse Reaction (Verified 07/06/18 08:15) Rash tramadol [From Ultram] Adverse Reaction (Verified 07/06/18 08:15) Itching Medications Verapamil HCl 360 mg PO DAILY 07/16/16 [History Confirmed 07/06/18] proMETHazine tablet [Phenergan tablet] 25 mg PO Q4H PRN PRN #10 tab 06/28/17 [Rx Confirmed 07/06/18] Diazepam 10 mg PO PRN PRN 02/28/18 [History Confirmed 07/06/18] Aspirin E.C. [Ecotrin] 325 mg PO BID 03/09/18 [History Confirmed 07/06/18] Famotidine [Pepcid] 40 mg PO DAILY 03/09/18 [History Confirmed 07/06/18] Folic Acid 1 mg PO DAILY@0800 03/09/18 [History Confirmed 07/06/18] Multivit with Calcium,Iron,Min [Multiple Vitamins For Women] 1 ea PO DAILY 03/09/18 [History Confirmed 07/06/18] Brimonidine Tartrate 0.2% [Brimonidine 0.2% 5Ml Bottle] 1 drp EACH EYE BID bottle 03/22/18 [Rx Confirmed 07/06/18] Latanoprost 0.005% [Xalatan Opthalmic] 1 drp OPHTHALMIC HS bottle 03/22/18 [Rx Confirmed 07/06/18] Melatonin 3 mg PO QHS tab 03/22/18 [Rx Confirmed 07/06/18] Timolol 0.5% [Timoptic] 1 drp EACH EYE BID opth.btl 03/22/18 [Rx Confirmed 07/06/18] Tolterodine Tartrate [Detrol LA] 2 mg PO DAILY #30 cap.sa 03/22/18 [Rx Confirmed 07/06/18] PFSH Medical History High cholesterol (Chronic) Hypertension (Chronic) Surgical History H/O arthroscopy of left knee (Inactive) H/O left knee replacement (Inactive) h/o left shoulder arthroscopy (Inactive) Social History Smoking Status: Never smoker HPI left hand: Details: SHARON REED is a 72 year old F here today for a followup on her left hand. Patient went to see Dr Ha and she is unable to repair her tendon because it has been torn for too long. She suggested cutting out a bone in her hand and patient is unsure if that is needed. Patient is still unable to flex her DIP joint but is getting better flexion at the pip. She denies any pain into her finger. She has pain into her hand at time. Denies numbness, tingling or other associated symptoms. ROS Const Reports system reviewed and no additional complaints, except as docu Eyes Reports system reviewed and no additional complaints, except as docu ENT Reports system reviewed and no additional complaints, except as docu Card Reports system reviewed and no additional complaints, except as docu Resp Reports system reviewed and no additional complaints, except as docu GI Reports system reviewed and no additional complaints, except as docu Reports system reviewed and no additional complaints, except as docu Musc Reports joint pain, Reports limited joint movement Skin/Breast Reports system reviewed and no additional complaints, except as docu Neuro Yes system reviewed and no additional complaints, except as docu Psych Reports system reviewed and no additional complaints, except as docu Endo Reports system reviewed and no additional complaints, except as docu Ortho Exam Right Wrist/Hand Skin/Wound: Yes CDI Contralateral Normal: Yes A1 denise trigger: No WRIST: palpable painful bundle wear the tendon is retracted Assessment AND Plan 1. Rupture of flexor tendon of right hand, subsequent encounter S66.061G Plan remvoal of bulky tendon/ profundus and tie into superficialis. Reviewed the options that the hand surgeon has for her, explained that if she has pain she should have the tendon/neuroma removed. If she has function and isnt painful she can leave it alone. If removal is the option that is a surgery we can perform. Reviewed the pre-operative plans with the patient. Risks and benefits of the procedure were fully explained, including but not limited to infection, neurovascular injury, continued pain, arthritis, stiffness, need for further surgery, re-injury, DVT, PE, general risks of anesthesia, and loss of limb or life. The patient understands all the risks and does wish to proceed with written consent. Follow up post op or sooner if pain, swelling, numbness or associated symptoms, or concerns develop. All questions answered. Patient in agreement of plan. Coding Level of Care Code Off vis,est,level 4 Diagnoses Rupture of flexor tendon of right hand, subsequent encounter S66.812D Encounter type: subsequent encounter 07/06/18 1029 <Electronically signed by Florence Finley DO> Date Florence Finley DO Cosigner Signature: Date (if applicable) CC: CBC W/DIFF, AUTOMATED Collected: 07/03/2018 Status: F Source: JACQUELINE 4:15 PM [facility] Order Comment: Order Date: 06/29/18 Order Info: [id number] - CBCD TYPE CODE TESTS RESULT OUT OF RANGE REFERENCE UNITS LAB L100.1000 4.4-11.0 K/mm3 Normal WBC 5.0 LAB L100.1200 4.2-5.4 M/mm3 Low RBC 3.69 LAB L100.1300 12.0-15.0 g/dl Low HGB 9.7 LAB L100.1400 37-47 % Low HCT 31.3 LAB L100.1500 81-99 fL Normal MCV 84.8 LAB L100.1600 27.0-32.0 pg Low MCH 26.3 LAB L100.1700 32-36 g/gl Low MCHC 31.0 LAB L100.1810 11.6-14.6 % High RDW CV 15.2 LAB L100.1820 35.1-43.9 fl High RDW SD 47.5 LAB L100.1900 150-450 K/mm3 Normal PLT 310 LAB L100.2000 6.2-12.0 fl Normal MPV 9.8 LAB L100.2100 47-70 % Low NEUT% 46.8 LAB L100.2200 19-41 % High LY% 42.1 LAB L100.2300 0-10 % Normal MONO% 9.7 LAB L100.2400 0-5 % Normal EO% 1.2 LAB L100.2500 0-1 % Normal BASO% 0.2 LAB L100.2550 0.0-0.9 % Normal IM GRAN % 0.000 Result Comment: IG% - Immature Granulocytes (promyelocytes, myelocytes and metamyelocytes) > 1% indicates that a LEFT SHIFT is Present. LAB L100.2620 2.0-7.7 X10 3/uL Normal Absolute Neut 2.4 LAB L100.2720 0.83-4.51 X10 3/ul Normal Absolute Lymph 2.12 Performed By: #### L100.0100, L500.2500, L500.4100 #### [facility] [address] [place], [place], [id number] BASIC METABOLIC Collected: 07/03/2018 Status: F Source: JACQUELINE PROFILE (BMP) 4:15 PM [facility] Order Comment: Order Date: 06/29/18 Order Info: [id number] - BMP Order Info: [id number] - LIPID TYPE CODE TESTS RESULT OUT OF RANGE REFERENCE UNITS LAB L501.0100 74-106 mg/dL Normal GLU 82 Result Comment: Please note revised GLUCOSE reference range effective 2017. LAB L501.1000 7-18 mg/dL High BUN 22 LAB L501.1100 0.55-1.02 mg/dL High CREAT,SERUM 1.87 Result Comment: The validity of the calculated GFR AND GFRAA in patients over 70 years has not been determined. Clinical correlation is essential. LAB L501.1110 >60 mL/min Low EST GFR 28 Result Comment: Non- GFR Calc LAB L501.1115 >60 mL/min Low EST GFR - AA 34 Result Comment: GFR Calc LAB L501.1300 10-20 RATIO Normal BUN/CRE 11.8 LAB L501.2200 8.5-10.1 mg/dL CA Normal 9.2 LAB L501.5300 136-145 mmol/L NA Normal 141 LAB L501.5600 3.5-5.1 mmol/L K Normal 4.1 LAB L501.5900 98-107 mmol/L CL Normal 106 LAB L501.6100 21.0-32.0 mmol/L Normal CO2 28.0 LAB L501.6200 5-15 Normal GAP 7 Performed By: #### L100.0100, L500.2500, L500.4100 #### [facility] [address] [place], [place], [address] LIPID PROFILE Collected: 07/03/2018 Status: F Source: JACQUELINE 4:15 PM [facility] Order Comment: Order Date: 06/29/18 Order Info: [id number] - [facility] Order Info: [id number] - LIPID TYPE CODE TESTS RESULT OUT OF RANGE REFERENCE UNITS LAB L501.4900 200 mg/dL High CHOL 243 Result Comment: <200 mg/dL Desirable 200-240 mg/dL Borderline >240 mg/dL High Risk LAB L501.5000 mg/dL Normal TRIG 95 Result Comment: The drugs N-Acetylcysteine and Metamizole may falsely depress this assay. Serum Triglycerides Reference Interval Normal <150 mg/dL Borderline high 150 - 199 mg/dL High 200 - 499 mg/dL Very High > or = 500 mg/dL LAB L501.6400 mg/dL Normal HDL 51 Result Comment: The drugs N-Acetylcysteine and Metamizole may falsely depress this assay. Reference Range HDL <40 mg/dL Low HDL Cholesterol HDL >or= 60 mg/dL High HDL Cholesterol LAB L501.6500 0-130 mg/dL High LDL 173 LAB L501.6600 5-40 mg/dL Normal VLDL 19 Performed By: #### L100.0100, L500.2500, L500.4100 #### [place] [facility] [address] [place], [address] MISCELLANEOUS LAB Collected: 06/21/2018 Status: F Source: JACQUELINE PROCEDURE 2:00 PM [facility] Order Comment: Test(s) Ordered: CHROMIUM [id number] RT TYPE CODE TESTS RESULT OUT OF RANGE REFERENCE UNITS LAB L801.1541 Normal [facility] LAB TEST Result Comment: TEST RESULT LIMITS Chromium, Urine Chromium, Urine 1.2 ug/L 0.1 - 2.0 Detection Limit = 0.10 Creatinine(Relief Mate),U 4.52 g/L High 0.30 - 3.00 Detection Limit = 0.10 Cromium/Creat Ratio 0.3 ug/g creat 0.0 - 9.9 Occupational Exposure: SADIE: End of shift of workweed 25.0 ug/l Increase during shift 10.0 ug/l TESTING PERFORMED AT [facility]. ORIGINAL REPORT ON FILE IN LAB CONTAINS ADDITIONAL TEST SITE INFORMATION. Performed By: #### L801.1541 #### [place] [facility] [address] [place], [id number] ORTHOPEDIC VISIT Observed: 05/24/2018 Status: F Source: JACQUELINE REPORT 1:32 PM [facility] Orthopaedics AND Sports Medicine [address] [place] [address] [place] [address] OFFICE VISIT Date of Service: 05/15/18 MR#: [id number] Acct: [id number] Name: SHARON REED Rep #: [id number] : 1945 Provider: Derek Vazquez DO Age/Sex: 72/F Location: [facility] [place].[facility] Status: Signed Intake Intake Visit Reasons: LEFT KNEE Is patient in pain?: Yes Allergies codeine Adverse Reaction (Verified 02/28/18 14:26) Nausea latex Adverse Reaction (Verified 03/08/18 20:53) Rash tramadol [From [facility]] Adverse Reaction (Verified 03/09/18 06:29) Itching Medications Verapamil HCl 360 mg PO DAILY 07/16/16 [History Confirmed 04/05/18] proMETHazine tablet [Phenergan tablet] 25 mg PO Q4H PRN PRN #10 tab 06/28/17 [Rx Confirmed 04/05/18] Diazepam 10 mg PO PRN PRN 02/28/18 [History Confirmed 04/05/18] Aspirin E.C. [Ecotrin] 325 mg PO BID 03/09/18 [History Confirmed 04/05/18] Famotidine [Pepcid] 40 mg PO DAILY 03/09/18 [History Confirmed 04/05/18] Folic Acid 1 mg PO DAILY@0800 03/09/18 [History Confirmed 04/05/18] Multivit with Calcium,Iron,Min [Multiple Vitamins For Women] 1 ea PO DAILY 03/09/18 [History Confirmed 04/05/18] Brimonidine Tartrate 0.2% [Brimonidine 0.2% 5Ml Bottle] 1 drp EACH EYE BID bottle 03/22/18 [Rx Confirmed 04/05/18] Latanoprost 0.005% [Xalatan Opthalmic] 1 drp OPHTHALMIC HS bottle 03/22/18 [Rx Confirmed 04/05/18] Melatonin 3 mg PO QHS tab 03/22/18 [Rx Confirmed 04/05/18] Timolol 0.5% [Timoptic] 1 drp EACH EYE BID opth.btl 03/22/18 [Rx Confirmed 04/05/18] Tolterodine Tartrate [Detrol LA] 2 mg PO DAILY #30 cap.sa 03/22/18 [Rx Confirmed 04/05/18] PFSH Medical History High cholesterol (Chronic) Hypertension (Chronic) Surgical History H/O arthroscopy of left knee (Inactive) H/O left knee replacement (Inactive) h/o left shoulder arthroscopy (Inactive) Social History Smoking Status: Never smoker HPI LEFT KNEE: Details: SHARON REED is a 72 year old F here today for f/u on left TKA 03/07/18. She cont PT with good results, has 120 degrees of flexion and full extension today. Ambulating well with no assistive device but still complains of random sharp pain and a posterior aching when she has been still for too long. Denies calf pain or swelling. ROS Prem Reports joint swelling, Reports joint pain, Reports muscle weakness, Reports stiffness, Reports as per HPI Ortho Exam Right Knee Patella Translation: 1 Left Knee Skin/Wound: Yes CDI Contralateral Normal: Yes Swelling: No Homans Sign: No Knee ROM: Yes ROM-Flexion 0-140 (0 120) Quad Atrophy: No Stability: NML: Posterior Drawer, NML: Valgus 0, NML: Valgus 30, NML: Varus 0, NML: Varus 30, NML: Dial 90, NML: Dial 30 Popliteal Adenopathy: No Patella Translation: 1 Apprehension with Lateral Translation: No Patellar Tilt Normal: Yes Patella Grind: No KNEE: No calf pain negative Homans. Range of motion 0-120. Walks with a very mild antalgic gait. Patient uses assistive device for longer distances to include a cane but otherwise around the house she does not. Assessment AND Plan Problems 1. Orthopedic aftercare Z47.89 Plan Assessment: After orthopedic status post left total knee arthroplasty doing well. Plan: This point time patient continue to advance range of motion. Told the patient to continue to work on strengthening and weight loss. Patient will follow-up in 3 months with my AMADEO Meeks, for a six-month check and radiographs at that time. Any major issues return. Patient agrees to plan. Coding Level of Care Code Global Post Op Diagnoses Orthopedic aftercare Z47.89 05/24/18 1332 <Electronically signed by Derek Vazquez DO> Date Derek Vazquez DO Cosigner Signature: Date (if applicable) CC: RE-EVALUATION - PT (1) Observed: 05/11/2018 Status: F Source: [place]AC[place]ELINE 4:22 PM [facility] [address] [place] [address] Fax REEVALUATION / MEDICARE RECERTIFICATION PHYSICAL THERAPY MR#: [id number] Acct: [id number] Name: SHARON REED Rep #: [id number] : 1945 72 From: Sanchez Washington PT, ATC Referring DrBarrett: ARIELLA Nevarez Status: REG RCR Insurance: MEDICARE PART A B SANDER Nevarez, SUHAIL, It has been my pleasure to treat SHARON REED over the last 9 visits for L TKA. Please see the progress note below for an update on the physical therapy plan of care! Subjective: Minor pain this date Objective/Function: L knee pain 01/21. L knee ROM: 0-7-120. L knee MMT: ext= 4/5, flex= 3/5. Pt is progressing well toward Rx goals Plan Plan: Cont after visit Goals Goal 1:: Decrease L knee pain x 50% to aid with sleep Goal Time Frame: 4-6 Weeks Goal Progress: Progressing Goal 2:: Increase L knee strength x 1 grade to aid with stair negotiation Goal Time Frame: 4-6 Weeks Goal Progress: Progressing Goal 3:: Increase L knee ROM x 10 degrees to aid with funtional mobility Goal Time Frame: 4-6 Weeks Goal Progress: Progressing Goal 4:: I with HEP Goal Time Frame: 4-6 Weeks Goal Progress: Progressing Anticipated Interventions Patient/Client Instruction: Educate patient on: Condition, Plan of Care For the Purpose of:: To improve self management Therapeutic Exercise to Include: Strength training, Endurance training, Balance training, Gait and locomotor training, Passive ROM, Active ROM, Dynamic Lumbar Stabilization For the Purpose of:: To decrease pain, To increase ROM, To improve muscle performance and motor function Cryotherapy (ice pack, ice massage): Yes For the Purpose of:: To decrease pain Please do not hesitate to contact me at [phone] by phone or if you have questions or concerns regarding this new plan of care! Sincerely, Sanchez Washington, PT, <Electronically signed by Sanchez Washington PT, ATC> 05/11/18 3379 CC: ARIELLA Nevarez; Lazaro Sorensen MD [facility] Signed For Medicare only, by signing this I certify the plan of care. Physicians Signature Date ORTHOPEDIC VISIT Observed: 05/04/2018 Status: F Source: [place]ELINE REPORT 2:00 PM [facility] Orthopaedics AND Sports Medicine [address] [place] [address] OFFICE VISIT Date of Service: 05/02/18 MR#: [id number] Acct: [id number] Name: SHARON REED Rep #: [id number] : 1945 Provider: Florence Finley DO Age/Sex: 72/F Location: [facility] [place] Status: Signed Intake Intake Visit Reasons: RIGHT WRIST Is patient in pain?: Yes Allergies codeine Adverse Reaction (Verified 02/28/18 14:26) Nausea latex Adverse Reaction (Verified 03/08/18 20:53) Rash tramadol [From [facility]] Adverse Reaction (Verified 03/09/18 06:29) Itching Medications Verapamil HCl 360 mg PO DAILY 07/16/16 [History Confirmed 04/05/18] proMETHazine tablet [Phenergan tablet] 25 mg PO Q4H PRN PRN #10 tab 06/28/17 [Rx Confirmed 04/05/18] Diazepam 10 mg PO PRN PRN 02/28/18 [History Confirmed 04/05/18] Aspirin E.C. [Ecotrin] 325 mg PO BID 03/09/18 [History Confirmed 04/05/18] Famotidine [Pepcid] 40 mg PO DAILY 03/09/18 [History Confirmed 04/05/18] Folic Acid 1 mg PO DAILY@0800 03/09/18 [History Confirmed 04/05/18] Multivit with Calcium,Iron,Min [Multiple Vitamins For Women] 1 ea PO DAILY 03/09/18 [History Confirmed 04/05/18] Brimonidine Tartrate 0.2% [Brimonidine 0.2% 5Ml Bottle] 1 drp EACH EYE BID bottle 03/22/18 [Rx Confirmed 04/05/18] Latanoprost 0.005% [Xalatan Opthalmic] 1 drp OPHTHALMIC HS bottle 03/22/18 [Rx Confirmed 04/05/18] Melatonin 3 mg PO QHS tab 03/22/18 [Rx Confirmed 04/05/18] Timolol 0.5% [Timoptic] 1 drp EACH EYE BID opth.btl 03/22/18 [Rx Confirmed 04/05/18] Tolterodine Tartrate [Detrol LA] 2 mg PO DAILY #30 cap.sa 03/22/18 [Rx Confirmed 04/05/18] PFSH Medical History High cholesterol (Chronic) Hypertension (Chronic) Surgical History H/O arthroscopy of left knee (Inactive) H/O left knee replacement (Inactive) h/o left shoulder arthroscopy (Inactive) Social History Smoking Status: Never smoker HPI RIGHT WRIST: Details: SHARON REED is a 72 year old F here today for right wrist pain. She states that she has had right wrist pain for a long time. She complains of pain over her ulnar sided hand and wrist. Patient had swelling. Patient had her wrist wrapped with an ALEXYS wrap which has helped her pain. Patient has decreased range of motion of her 5th finger. She has weakness when she has swelling. Patient is unsure if her pain is from using her hands to help her stand, prior to her knee surgery. Patient had xrays in February but was unable to do her MRI due to anxiety. ROS Const Reports system reviewed and no additional complaints, except as docu Eyes Reports system reviewed and no additional complaints, except as docu ENT Reports system reviewed and no additional complaints, except as docu Card Reports system reviewed and no additional complaints, except as docu Resp Reports system reviewed and no additional complaints, except as docu GI Reports system reviewed and no additional complaints, except as docu Reports system reviewed and no additional complaints, except as docu Musc Reports joint pain, Reports joint swelling Skin/Breast Reports system reviewed and no additional complaints, except as docu Neuro Yes system reviewed and no additional complaints, except as docu Psych Reports system reviewed and no additional complaints, except as docu Endo Reports system reviewed and no additional complaints, except as docu Ortho Exam Right Wrist/Hand Skin/Wound: Yes CDI Contralateral Normal: Yes A1 denise trigger: No WRIST: no flexion of DIP joint of 5th finger Assessment AND Plan 1. Rupture of flexor tendon of right hand, subsequent encounter S66.524D Plan She continues to have inability to flex the DIP of the right pinky finger. We will re order the MRI as she was unable to complete the MRI ordered previously due to her knee surgery. Follow up after the MRI or sooner if pain, swelling, numbness or associated symptoms, or concerns develop. All questions answered. Patient in agreement of plan. Orders Orders: Coding Level of Care Code Off vis,est,level 3 Diagnoses Rupture of flexor tendon of right hand, subsequent encounter S66.917V Encounter type: subsequent encounter 05/04/18 1400 <Electronically signed by Florence Finley DO> Date Florence Fariasignpartha Signature: Date (if applicable) CC: ORTHOPEDIC VISIT Observed: 04/30/2018 Status: F Source: JAC[place]EL[place] REPORT 9:06 PM [facility] Orthopaedics AND Sports Medicine [address] [place] [address] OFFICE VISIT Date of Service: 04/05/18 MR#: [id number] Acct: [id number] Name: SHARON REED Rep #: [id number] : 1945 Provider: Derek Vazquez DO Age/Sex: 72/F Location: [facility] [place] Status: Signed Intake Intake Visit Reasons: LEFT KNEE Is patient in pain?: Yes Pain scale (1-10): 1 Allergies codeine Adverse Reaction (Verified 02/28/18 14:26) Nausea latex Adverse Reaction (Verified 03/08/18 20:53) Rash tramadol [From [facility]] Adverse Reaction (Verified 03/09/18 06:29) Itching Medications Verapamil HCl 360 mg PO DAILY 07/16/16 [History Confirmed 04/05/18] proMETHazine tablet [Phenergan tablet] 25 mg PO Q4H PRN PRN #10 tab 06/28/17 [Rx Confirmed 04/05/18] Diazepam 10 mg PO PRN PRN 02/28/18 [History Confirmed 04/05/18] Aspirin E.C. [Ecotrin] 325 mg PO BID 03/09/18 [History Confirmed 04/05/18] Famotidine [Pepcid] 40 mg PO DAILY 03/09/18 [History Confirmed 04/05/18] Folic Acid 1 mg PO DAILY@0800 03/09/18 [History Confirmed 04/05/18] Multivit with Calcium,Iron,Min [Multiple Vitamins For Women] 1 ea PO DAILY 03/09/18 [History Confirmed 04/05/18] Brimonidine Tartrate 0.2% [Brimonidine 0.2% 5Ml Bottle] 1 drp EACH EYE BID bottle 03/22/18 [Rx Confirmed 04/05/18] Latanoprost 0.005% [Xalatan Opthalmic] 1 drp OPHTHALMIC HS bottle 03/22/18 [Rx Confirmed 04/05/18] Melatonin 3 mg PO QHS tab 03/22/18 [Rx Confirmed 04/05/18] Timolol 0.5% [Timoptic] 1 drp EACH EYE BID opth.btl 03/22/18 [Rx Confirmed 04/05/18] Tolterodine Tartrate [Detrol LA] 2 mg PO DAILY #30 cap.sa 03/22/18 [Rx Confirmed 04/05/18] PFSH Medical History High cholesterol (Chronic) Hypertension (Chronic) Surgical History H/O arthroscopy of left knee (Inactive) H/O left knee replacement (Inactive) h/o left shoulder arthroscopy (Inactive) Social History Smoking Status: Never smoker HPI LEFT KNEE: Details: SHARON REED is a 72 year old F here today for f/u 03/07/18 left TKA. She is ambulating with a walker but states at home she isn't using anything. She has fair rom, mild pain that increases with flexion. She has stopped using pain meds at home. Normal post op swelling but denies any calf pain, nausea, chills, fever or any signs of infection. JAGDISH Amaro Reports joint pain, Reports joint swelling, Reports stiffness, Reports limited joint movement, Reports muscle weakness, Reports as per HPI Ortho Exam Right Knee Patella Translation: 1 Left Knee Skin/Wound: Yes CDI, Yes healed Contralateral Normal: Yes Swelling: No Homans Sign: No 1+: Effusion Knee ROM: Yes ROM-Flexion 0-140 (0-115) Quad Atrophy: No Stability: NML: Posterior Drawer, NML: Valgus 0, NML: Valgus 30, NML: Varus 0, NML: Varus 30, NML: Dial 90, NML: Dial 30 Popliteal Adenopathy: No Patella Translation: 1 Apprehension with Lateral Translation: No Patellar Tilt Normal: Yes Patella Grind: No KNEE: No calf pain negative Homans. Walks with a mild antalgic gait as expected. Gross motor strength out of 5. X-rays: Were otherwise well seated and well placed status post left total knee arthroplasty. Toe is well centered. Assessment AND Plan Problems 1. Orthopedic aftercare Z47.89 Plan Assessment: Aftercare orthopedic status post left total knee arthroplasty doing well. Plan: This point time patient will follow-up in 6 weeks to get a 3-month juwan. Plan at this point time just continue to work on aggressive range of motion. Many major issues return. Orders Orders: Coding Level of Care Code Global Post Op Diagnoses Orthopedic aftercare Z47.89 04/30/18 4245 <Electronically signed by Derek Vazquez DO> Date Derek Hamlin Signature: Date (if applicable) CC: Observed: 04/07/2018 Status: F Source: [place] URINE CULTURE 3:30 PM [facility] REPOSITORY Sp. Request/Comment: - Presurgical Sterilization Specimen received in preservative PLEASE ADD FOSFOMYCIN TO SENSITIVITY Culture Result - Normal Urogenital vasile: 5,000 - <10,000 CFU/ml --> ABNORMAL ALERT Lactobacillus species --> ABNORMAL ALERT Normal Urogenital vasile: --> ABNORMAL ALERT <1,000 CFU/ml --&g t; ABNORMAL ALERT Coagulase negative Staphylococcus species --> ABNORMAL ALERT Performed By: #### URCUL #### [facility] [address] [place], [place] [address] PROGRESS Observed: 04/07/2018 Status: COMPLETED Source: [place] 2:57 PM [facility] REPOSITORY HNO ID: [id number] Author: Mina Brandt) [place] Service: (none) Author Type: Physician Lead Presser Type: Progress Notes Filed: 04/07/2018 3:31 PM Note Text: [facility] [place] PATIENT INFO: Sharon Reed72 year old CHIEF COMPLAINT: Nocturia HPI: This is a 72 year old female, who has had a history of Nocturia and has had some hematuria that was worked up last in 2014 showing OCTAVIA Patient is need of a refill today, she has been off the Ditropan 10 mg and has not been seen for 1-2 yrs VOIDING SYMPTOMS: NTF: 3-4 Times Small Amounts DTF: Q 2-3 HOURS FOS: Average Hesitancy: No Straining: No Intermittency: Yes Urgency: Yes Frequency: No Dysuria: No Gross Hematuria: No U/A Dipstick Positive Blood - Only No Incomplete Voiding: No Double Voiding: No Post Void Dribbling: No Incontinence: No REVIEW OF SYSTEMS: General: General: Well developed, well nourished. No acute distress PHYSICAL EXAMINATION: General Appearance/ Constitutional: Well developed, well nourished, and in no apparent distress Results for orders placed or performed in visit on 08/28/15 UA DIP, URINE (POC) Result Value Ref Range GLUCOSE UA (POCT) Negative Neg mg/dL BILIRUBIN UA (POCT) Negative Neg KETONE UA (POCT) Negative Neg mg/dL SPECIFIC GRAVITY UA (POCT) 1.025 1.005 - 1.030 HEMOGLOBIN/BLOOD UA (POCT) Negative Neg PH UA (POCT) 5.5 4.5 - 8 PROTEIN UA (POCT) 30 (A) Neg mg/dL UROBILINOGEN UA (POCT) 0.2 Normal(<1.1) E.U./dL NITRITE UA (POCT) Negative Neg LEUKOCYTES UA (POCT) Small (A) Neg COLOR UA (POCT) Yellow CLARITY UA (POCT) Clear Urine Culture - Pending UROLOGICAL DATA: Post Void Residual, Ultrasound:45 ml IMPRESSION / PLAN: > History of Nocturia - off of Ditropan for a 1 year > Refilled Ditropan today > Pyuria > Urine Culture - Pending > 3 mo follow up for new medication discussion Mina Conley, MPAS, [place], GRAHAM BELTRAN Observed: 04/07/2018 Status: COMPLETED Source: [place] 2:30 PM [facility] REPOSITORY Office Visit (UROLWS) SHARON REED ([id number]) 1945 F Date Time Provider Department 04/07/18 2:30 PM MINA CONLEY) UROLWS During your visit today, we recorded the following information about you: Pulse Blood pressure Weight Height 84/minute 144/84 110.7 kg 1.6 m AMADEO Zuniga 04/07/2018 3:31 PM Signed [facility] [place] PATIENT INFO: Sharon Reed72 year old CHIEF COMPLAINT: Nocturia HPI: This is a 72 year old female, who has had a history of Nocturia and has had some hematuria that was worked up last in 2014 showing OCTAVIA Patient is need of a refill today, she has been off the Ditropan 10 mg and has not been seen for 1-2 yrs VOIDING SYMPTOMS: NTF: 3-4 Times Small Amounts DTF: Q 2-3 HOURS FOS: Average Hesitancy: No Straining: No Intermittency: Yes Urgency: Yes Frequency: No Dysuria: No Gross Hematuria: No U/A Dipstick Positive Blood - Only No Incomplete Voiding: No Double Voiding: No Post Void Dribbling: No Incontinence: No REVIEW OF SYSTEMS: General: General: Well developed, well nourished. No acute distress PHYSICAL EXAMINATION: General Appearance/ Constitutional: Well developed, well nourished, and in no apparent distress Results for orders placed or performed in visit on 08/28/15 UA DIP, URINE (POC) Result Value Ref Range GLUCOSE UA (POCT) Negative Neg mg/dL BILIRUBIN UA (POCT) Negative Neg KETONE UA (POCT) Negative Neg mg/dL SPECIFIC GRAVITY UA (POCT) 1.025 1.005 - 1.030 HEMOGLOBIN/BLOOD UA (POCT) Negative Neg PH UA (POCT) 5.5 4.5 - 8 PROTEIN UA (POCT) 30 (A) Neg mg/dL UROBILINOGEN UA (POCT) 0.2 Normal(<1.1) E.U./dL NITRITE UA (POCT) Negative Neg LEUKOCYTES UA (POCT) Small (A) Neg COLOR UA (POCT) Yellow CLARITY UA (POCT) Clear Urine Culture - Pending UROLOGICAL DATA: Post Void Residual, Ultrasound:45 ml IMPRESSION / PLAN: > History of Nocturia - off of Ditropan for a 1 year > Refilled Ditropan today > Pyuria > Urine Culture - Pending > 3 mo follow up for new medication discussion SHANE Oropeza, [place], PA-C Referring Provider: SELF [200] Allergies As of Date: 04/07/2018 Noted Allergy Reaction ADHESIVE TAPE-SILICONES 10/30/2010 16 - Unknown CODEINE 11/18/2005 4 - Hives 8 - GI Upset LATEX 11/18/2005 2 - Rash Comments: BLISTERS ON SKIN Date Reviewed: 04/07/2018 Reviewed by: Verónica Rodriguez Ma - Fully Assessed Reason for Visit: New Patient [172] Nocturia [2774] Primary Visit Diagnosis:Nocturia [R35.1] Other Visit Diagnosis:Pyuria [N39.0] Order(s):UA DIP, URINE (POC) [[id number]] Order #: [id number] MSR POST-VOID RESID URINE [86900PZK] Order #: [id number] UA DIP, URINE (POC) [[id number]] Order #: [id number]. #:[id number] oxybutynin ER (DITROPAN XL) 10 mg 24 hr tabletTake 1 tablet by mouth once daily.Disp: 90 tabletRfl: 4 URINE CULTURE [SQURCUL] Order #: [id number] Prescriptions as of 04/07/2018 Sig: VERAPAMIL ER 360 MG 24 HR CAP* VERAPAMIL HCL ER 360 MG XR24H* MULTIVIT,TX WITH IRON 27 MG-C* DAILY LATANOPROST 0.005 % EYE DROPS BEDTIME OXYBUTYNIN CHLORIDE ER 10 MG * Take 1 tablet by mouth once d* Problem List As Of Date 04/07/2018 Noted Resolved NEURALGIA/NEURITIS NOS [SJE0259] INVALID FOR* FX PHALANX, FOOT-CLOSED [S92.919A] INVALID FOR* ACUTE GASTRITIS W/O HEMORRHAGE [K29.00] INVALID FOR* DIAPHRAGMATIC HERNIA [K44.9] INVALID FOR* FEMALE GENITAL SYMPTOMS NOS [N94.9] INVALID FOR* BLADDER DISORDER NEC [596.8] INVALID FOR* Trigger finger [M65.30] INVALID FOR* Other physical therapy [JUL5865] INVALID FOR* Urinary frequency [R35.0] INVALID FOR* Nocturia [R35.1] INVALID FOR* Morbid obesity (HCC) [E66.01] INVALID FOR* Gross hematuria [R31.0] INVALID FOR* Claustrophobia [F40.240] INVALID FOR* 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 Medications Discontinued During This Encounter Verapamil HCl (VERELAN) 360 mg 24 hr* 04/07/2018 Class: Historical Med Route: ORAL Sig: Take 360 mg by mouth daily at bedtime. Disc: Reason for discontinue is not on file. etodolac (LODINE) 400 mg tablet 04/07/2018 Class: Historical Med Route: ORAL Sig: Take 400 mg by mouth twice daily. Disc: Reason for discontinue is not on file. IRON, FERROUS SULFATE, ORAL 04/07/2018 Class: Historical Med Route: ORAL Sig: Take by mouth. Disc: Reason for discontinue is not on file. ciprofloxacin HCl (CIPRO) 500 mg tab* 1 ta* 0 07/22/2015 04/07/2018 Class: In Office Sig: Take 500 mg in office prior to procedure-to be administered per clinical support. Disc: Reason for discontinue is not on file. oxybutynin ER (DITROPAN XL) 10 mg 24* 90 t* 4 07/22/2015 04/07/2018 Route: ORAL Sig: Take 1 tablet by mouth once daily. Disc: Reason for discontinue is not on file. Disposition: Return in about 3 months (around 07/08/2018). Follow-up and Disposition History Recorded Encounter Status:Closed by MINA CONLEY PA-C on 04/07/18 KNEE 4 OR MORE Observed: 04/05/2018 Status: F Source: [facility] 12:55 PM [facility] Imaging Services [address] [place] [address] [place] [address] Knee 4 or More Views MR#: [id number] Acct: [id number] Name: SHARON REED Rep #: [id number] : 1945 F 72 From: Jade Aguilera MD PCP: Lazaro Sorensen MD Status: REG CLI Study: Knee 4 or More Views Date of Exam: 04/05/18 Exam# [id number] Ordering Dr: Derek Vazquez DO STUDY: X-RAY - LEFT KNEE REASON FOR EXAM: Female, 72 years old. Pain TECHNIQUE: Four view(s) of the knee were obtained. COMPARISON: March 20, 2018 FINDINGS: There is a prosthesis in the distal femur. There is a prosthesis in the tibial plateau. Normal medial femorotibial compartment. Normal lateral femorotibial compartment. There are surgical changes in the patella. There is moderate fullness above the patella. The soft tissue structures are unremarkable. RAD/Knee 4 or More Views IMPRESSION: No acute abnormalities are seen in the left knee. There are stable arthroplasty changes. There is a small to moderate joint effusion which is decreased in size compared to the prior study. Electronically Signed: Jade Aguilera MD at 1:54 EDT Tel Direct: [phone], Service support , CC: Lazaro Sorensen MD; Derek Vazquez DO Armor Reconnaissance Vehicle Crewman: Signed INITAL EVALUATION (1) Observed: 03/31/2018 Status: F Source: [place] 3:06 PM [facility] Physical [facility] [address] [place] [address] Fax REHABILITATION SERVICES INITIAL EVALUATION MR#: [id number] Acct: [id number] Name: SHARON REED Rep #: [id number] : 1945 72 From: Sanchez Washington PT, ATC Referring Dr.: ARIELLA Nevarez Status: REG RCR Insurance: MEDICARE PART A B [employer]IG[employer] Patient's Visit Information SHARON REDE is a 72 year old F referred to Physical Therapy by SUHAIL Reyes with a diagnosis of L TKA. Date of Evaluation: 03/31/18 Physical Therapist: Sanchez Washington PT, - Visit Plan Frequency: 3x /Week Duration: 4-6 Weeks Plan: L knee stretching and strengthening, balance and proprio, core stab, nustep, HEP - Subjective Subjective: DOS: 03/07/18. Pt had a L TKA performed secondary to having pain for several years prior to this surgery. Pt is glad she had the surgery at this time. Pt notes she stayed at the TCU for 2 weeks having therapy until coming to outpatient PT. Pt reports she is still in a lot of pain at this time. No T or N at this time. Occasional sleep diff secondary to pain. Pt notes she has stairs at home but has not negotiated any to this date. Pt notes she wants to get better quick to help take care of her grandchildren. 5/10 at rest, 10/10 at worst (just staying busy) - Pain L knee Pain Intensity (Out of 10): 5 Pain Intensity Range: 10 - Objective Neuro: B LE sensation is WNL to light touch. B achilles reflex= 2/3. Girth at joint line: R knee 39 CM, L knee 43 cm. Observation: Incision is healing well. No obvious signs of infection. ROM: R knee 0-105 degrees; L knee 0-6-96. MMT: R knee 5/5 throughout; L knee is 3+/5 throughout - Goals Goal 1:: Decrease L knee pain x 50% to aid with sleep Goal Time Frame: 4-6 Weeks Goal 2:: Increase L knee strength x 1 grade to aid with stair negotiation Goal Time Frame: 4-6 Weeks Goal 3:: Increase L knee ROM x 10 degrees to aid with funtional mobility Goal Time Frame: 4-6 Weeks Goal 4:: I with HEP Goal Time Frame: 4-6 Weeks - Rehabilitation Potential Physical Therapy Diagnosis: L knee pain, weakness, and limited ROM secondary to L TKA Rehabilitation Potential: Good - Anticipated Interventions Patient/Client Instruction: Educate patient on: Condition, Plan of Care For the Purpose of:: To improve self management Therapeutic Exercise to Include: Strength training, Endurance training, Balance training, Gait and locomotor training, Passive ROM, Active ROM, Dynamic Lumbar Stabilization For the Purpose of:: To decrease pain, To increase ROM, To improve muscle performance and motor function Cryotherapy (ice pack, ice massage): Yes For the Purpose of:: To decrease pain Thank you for the opportunity to evaluate your patient. For Medicare and Medicare HMO plans, please review the plan of care and approve it. It will need to be FAXED BACK to us at [phone] for Medicare purposes. Please let me know if there are questions or concerns regarding this plan of care. Physician Signature: Date: <Electronically signed by Sanchez Washington PT, ATC> 03/31/18 1506 CC: ARIELLA Nevarez; Lazaro Sorensen MD [facility] Signed For Medicare only, by signing this I certify the plan of care. Physicians Signature Date DISCHARGE SUMMARY Observed: 03/23/2018 Status: F Source: [place] 1:49 PM [facility] Medical Records Department [address] [address] Discharge Summary 03/22/18 1044 MR#: [id number] Acct: [id number] Name: SHARON REED Rep #: [id number] : 1945 72 From: Diane Nevarez HIGH PRESSURE CLEANER-C PCP: Lazaro Sorensen MD Status: DIS IN Y Location: [place] [address] ADDENDUM by Alvaro Mckeon MD on 03/23/18 at 1349 I have personally examined the patient at bedside prior to discharge on 03/22/18. Please see ARIELLA Nevarez's discharge note as below for further complete details. I have discussed the management plan for the patient in detail with ARIELLA Nevarez and please see the plan as noted below, Follow up with Dr. Vazquez as outpatient and will defer further outpatient evaluation of left total knee arthroplasty to Dr. Vazquez. 03/23/18 1349 <Electronically signed by Reji Mckeon MD> Date Reji Mckeon MD cc: ARIELLA Nevarez; Alvaro Mckeon MD; Lazaro Sorensen MD * Signed Rehab Discharge Summary DATE OF ADMISSION: 03/09/18 DATE OF DISCHARGE: 03/22/18 - Rehab Diagnosis Left TKR Discharge Diet: No Restrictions Discharge Activity: May Not Drive - Until cleared by Surgeon, May not drive while taking narcotic pain medications., May Shower - Do no rub incision site dry, only PAT dry, Use Walker, - - Soak In a Tub Bath until cleared by Dr. Vazquez your Surgeon Weight Bearing Status: Weight bearing as tolerated Call your doctor if your incision/area has: Increased Pain/ Swelling, Increased Redness, Foul Smelling Discharge, Swelling at the incision site Call your doctor if you observe: Fever of 101 or Higher, Coldness, Increased Pain, Numbness or Tingling, Change in Color, Inability to urinate, Inability to have a bowel movement, Using more than one pad per hour, Shortness of breath, Dizziness, Fainting spells, Swelling in the ankles, Chest pain, Prolonged hiccoughing, Increased palpitations (irregular heartbeat), Calf discomfort, Uncontrolled pain Cleanse incision/area with: Soap AND Water - let water run off of site, DO not Rub site Pat Dry Only Home Medications: Medications to take at Discharge Verapamil HCl 360 mg PO DAILY 07/16/16 proMETHazine tablet [Phenergan tablet] 25 mg PO Q4H PRN PRN #10 tab 06/28/17 Diazepam 10 mg PO PRN PRN 02/28/18 Aspirin E.C. [Ecotrin] 325 mg PO BID 03/09/18 Famotidine [Pepcid] 40 mg PO DAILY 03/09/18 Folic Acid 1 mg PO DAILY@0800 03/09/18 Multivit with Calcium,Iron,Min [Multiple Vitamins For Women] 1 each PO DAILY 03/09/18 Oxycodone HCl/Acetaminophen [Percocet 5-325] 1 - 2 tab PO Q4H PRN PRN #60 tab 03/09/18 Brimonidine Tartrate 0.2% [Brimonidine 0.2% 5Ml Bottle] 1 drop EACH EYE BID bottle 03/22/18 Latanoprost 0.005% [Xalatan Opthalmic] 1 drop OPHTHALMIC HS bottle 03/22/18 Melatonin 3 mg PO QHS tablet 03/22/18 Timolol 0.5% [Timoptic] 1 drop EACH EYE BID opth.btl 03/22/18 Tolterodine Tartrate [Detrol LA] 2 mg PO DAILY #30 cap.sa 03/22/18 Following Prescrptions Were Given to Patient: Tolterodine Tartrate [Detrol LA] 2 mg PO DAILY #30 cap.sa Primary Care Physician: Lazaro Sorensen MD [Primary Care Provider] - Please Follow Up With: Dr Lazaro Sorensen When: Tuesday Please Follow Up With: Mina Conely PA-C Please Follow Up With: DO Derek Vazquez When: Tuesday Disposition: Home - With outpatient Physical therapy and Occupational therapy Minutes spent on discharge:: 40 Patient Condition:: Good Rehab Course The patient is a 72 year old Female who was admitted to the rehab unit for rehabilitation following a left total knee arthroplasty on 03/07/[address] Vazquez.Without complications. Patient has a past medical history of hypertension, GERD, chronic constipation, iron deficiency anemia, and anxiety. She lives with her grandson in a two story home with 5 steps to get in the home. Her plan is to go to her granddaughter house after discharge from the Rehab unit. She was previous completely functionally independent and is admitted to the rehab unit in order to restore her previous level of functional independence. With Physical therapy, she is stand by assistance for mobility getting in and out of bed, and going from a sitting to a standing position. She is able to walk about 165 feet with a walker at stand by assist. she has been able to go up and down two steps at contact guard. Her range of motion is still limited at 82 degrees of flexion as of last week. With Occupational therapy, she is supervision for bathing and all her personal care. she does require some help with getting her sock and shoe on her left foot, she is able to get it on her right foot with out any problems. With Nursing she continues to have issues with pain, we continued the Oxy IR and increase the dosage, schedule her Tylenol along with it, obtained a Sed rate which was elevated at 87, informed Dr. Vazquez , he ordered an X-ray of her knee, which showed the hardware intact, and no acute issues, we also obtained several Doppler which where all negative. She is also having frequent urinary which is not new for her, she was scheduled to see a Urology after her surgery, will set this up and in the meantime will started her on Detrol 2mg daily. She is requesting discharge a day earlier. Will discharge with outpatient Physical therapy, and Occupational therapy along with scripts for pain medications, and other medications that was started in the hospital. Meaningful Use Info Meaningful Use Diagnoses (Choose all that apply): None applicable 03/22/18 1528 <Electronically signed by Diane POPEC> Date Diane POPEC 03/23/18 1344<Electronically signed by Reji Mckeon MD> Cosigner Signature (if applicable): Date Reji Mckeon MD CC: HIGH PRESSURE CLEANER Diane Nevarez; Alvaro Mckeon MD; Lazaro Sorensen MD Signed VENOUS DUPLEX LOWER Observed: 03/22/2018 Status: F Source: [place] EXTREMITY 10:12 PM [facility] [place] Cardiovascular Services [address] [place] [address] Venous Duplex US, Unilateral 03/21/18 0925 MR#: [id number] Acct: [id number] Name: SHARON REED Rep #: [id number] : 1945 72 From: Luis E Faust MD Attending Dr: Aftab Alvarado MD Status: DIS IN Ordering Dr: Diane Nevarez HIGH PRESSURE CLEANER-C Date: 03/21/18 Location: Sex: F AA Admitted: 03/09/18 Reason For Study: edema Procedure LEFT Exam performed portable in patient room. GSV is normal. The exam was diagnostic. CFV is compressible, spontaneous, phasic, A preliminary report was called and/or faxed competent, and demonstrates normal to the pt's nurse. augmentation. FV is compressible, spontaneous, phasic, competent and demonstrates normal augmentation. POP V is compressible, spontaneous, phasic, competent and demonstrates normal augmentation. T/P Trunk is compressible. PTV is compressible. LT PerV is compressible. Interpretation Summary Deep veins of the left lower extremity are patent and compressible segmentally. There is no evidence of left lower extremity deep vein thrombosis. Valvular competence appears intact within the proximal deep venous system on the left . The left greater saphenous vein appears patent and compressible segmentally. Ordering Physician: Diane Nevarez Performed By: Isreal Rangel RVT 03/22/182210 Date Luis E Faust MD CC: HIGH PRESSURE CLEANER Diane Nevarez; Alvaro Mckeon MD; Aftab Alvarado MD; Lazaro Sorensen MD Date Dictated: 03/21/18924 Date Transcribed: 03/22/182210 Armor Reconnaissance Vehicle Crewman: Signed DISCHARGE INSTRUCTION Observed: 03/22/2018 Status: F Source: [place] 3:28 PM [facility] Medical Records Department [address] [place] [address] Instructions for Home/Discharge Instructions 03/22/18 1301 MR#: [id number] Acct: [id number] Name: SHARON REED Rep #: [id number] : 1945 72 From: Diane Nevarez HIGH PRESSURE CLEANER-C PCP: Lazaro Sorensen MD Status: DIS IN - Discharge Diagnoses Reason(s) for Visit for Discharge Instructions: Left TKR You will use the following diet at home:: Regular Your food should be the consistency of: Regular Your liquids should be the consistency of: Regular/Thin Discharge Activity: May Not Drive - Until cleared by Surgeon, May not drive while taking narcotic pain medications., May Shower - Do no rub incision site dry, only PAT dry, Use Walker, - - Soak In a Tub Bath until cleared by Dr. Vazquez your Surgeon Weight Bearing Status: Weight bearing as tolerated Call your doctor if your incision/area has: Increased Pain/ Swelling, Increased Redness, Foul Smelling Discharge, Swelling at the incision site Call your doctor if you observe: Fever of 101 or Higher, Coldness, Increased Pain, Numbness or Tingling, Change in Color, Inability to urinate, Inability to have a bowel movement, Using more than one pad per hour, Shortness of breath, Dizziness, Fainting spells, Swelling in the ankles, Chest pain, Prolonged hiccoughing, Increased palpitations (irregular heartbeat), Calf discomfort, Uncontrolled pain Cleanse incision/area with: Soap AND Water - let water run off of site, DO not Rub site Pat Dry Only Allergies/Adverse Reactions: Allergies codeine Adverse Reaction (Verified 02/28/18 14:26) Nausea latex Adverse Reaction (Verified 03/08/18 20:53) Rash tape causes blisters tramadol [From [facility]] Adverse Reaction (Verified 03/09/18 06:29) Itching Medications to take at Discharge Verapamil HCl 360 mg PO DAILY 07/16/16 proMETHazine tablet [Phenergan tablet] 25 mg PO Q4H PRN PRN #10 tab 06/28/17 Diazepam 10 mg PO PRN PRN 02/28/18 Aspirin E.C. [Ecotrin] 325 mg PO BID 03/09/18 Famotidine [Pepcid] 40 mg PO DAILY 03/09/18 Folic Acid 1 mg PO DAILY@0800 03/09/18 Multivit with Calcium,Iron,Min [Multiple Vitamins For Women] 1 each PO DAILY 03/09/18 Oxycodone HCl/Acetaminophen [Percocet 5-325] 1 - 2 tab PO Q4H PRN PRN #60 tab 03/09/18 Brimonidine Tartrate 0.2% [Brimonidine 0.2% 5Ml Bottle] 1 drop EACH EYE BID bottle 03/22/18 Latanoprost 0.005% [Xalatan Opthalmic] 1 drop OPHTHALMIC HS bottle 03/22/18 Melatonin 3 mg PO QHS tablet 03/22/18 Timolol 0.5% [Timoptic] 1 drop EACH EYE BID opth.btl 03/22/18 Tolterodine Tartrate [Detrol LA] 2 mg PO DAILY #30 cap.sa 03/22/18 The following prescriptions were given: Tolterodine Tartrate [Detrol LA] 2 mg PO DAILY #30 cap.sa Primary Care Physician: Lazaro Sorensen MD [Primary Care Provider] - Please Follow Up With: Dr Lazaro Sorensen When: Tuesday Please Follow Up With: Mina Conley PA-C Please Follow Up With: DO Derek Vazquez When: Tuesday Proposed Discharge Date: 03/22/18 03/22/18 1528 <Electronically signed by Saratoga Roque HIGH PRESSURE CLEANER-C> Date Diane Nevarez HIGH PRESSURE CLEANER-C CC: Lazaro Sorensen MD; Juwan Cartwright DO KNEE 3 VIEWS Observed: 03/20/2018 Status: F Source: [place] 4:18 PM [facility] REPOSITORY [facility] Imaging Services [address] [place] [address] Knee 3 Views MR#: [id number] Acct: [id number] Name: SHARON REED Rep #: [id number] : 1945 F 72 From: Hi Azar DO PCP: Lazaro Sorensen MD Status: ADM IN Study: Knee 3 Views Date of Exam: 03/20/18 Exam# [id number] Ordering Dr: Derek Vazquez DO STUDY: X-RAY - LEFT KNEE REASON FOR EXAM: Female, 72 years old. Pain TECHNIQUE: 3 view(s) of the knee. COMPARISON: March 07, 2018 FINDINGS: Stable total left hip replacement. The hardware components are well aligned and similar to previous study. No imaging evidence of loosening. Joint effusion is noted. The soft tissue structures are unremarkable. RAD/Knee 3 Views IMPRESSION: Stable total replacement of the knee. Electronically Signed: Hi Azar DO at 23:57 EDT Tel [phone], Service support , CC: Lazaro Sorensen MD; Derek Vazquez DO Armor Reconnaissance Vehicle Crewman: Signed ERYTHROCYTE SED RATE Collected: 03/16/2018 Status: F Source: [place]QUELINE 11:40 AM [facility] [place] CODE TESTS RESULT OUT OF RANGE REFERENCE UNITS LAB L102.0000 0-30 mm/hr High SED RATE 87 Performed By: #### L101.9900 #### [facility] [address] [place], [address] CRP Collected: 03/16/2018 Status: F Source: KINNEY 11:40 AM [facility] [place] CODE TESTS RESULT OUT OF RANGE REFERENCE UNITS LAB L501.6710 0.0-3.0 mg/L High 86.30 C-REACTIVE PROT Result Comment: C-Reactive Protein (CRP) provides useful information for the diagnosis, therapy and monitoring of inflammatory processes and associated diseases. For the evaluation of Relative Risk for Cardiovascular Disease, a High Sensitivity CRP (HSCRP) should be ordered. Performed By: #### L501.6710 #### [facility] [address] [place], [address] CBC W/DIFF, AUTOMATED Collected: 03/16/2018 Status: F Source: KINNEY 11:40 AM [facility] [place] CODE TESTS RESULT OUT OF RANGE REFERENCE UNITS LAB L100.1000 4.4-11.0 K/mm3 Normal WBC 7.2 LAB L100.1200 4.2-5.4 M/mm3 Low RBC 2.85 LAB L100.1300 12.0-15.0 g/dl Low HGB 7.7 LAB L100.1400 37-47 % Low HCT 24.5 LAB L100.1500 81-99 fL Normal MCV 86.0 LAB L100.1600 27.0-32.0 pg Normal MCH 27.0 LAB L100.1700 32-36 g/gl Low MCHC 31.4 LAB L100.1810 11.6-14.6 % High RDW CV 15.8 LAB L100.1820 35.1-43.9 fl High RDW SD 49.5 LAB L100.1900 150-450 K/mm3 Normal PLT 417 LAB L100.2000 6.2-12.0 fl Normal MPV 8.9 LAB L100.2100 47-70 % Normal NEUT% 56.4 LAB L100.2200 19-41 % Normal LY% 27.7 LAB L100.2300 0-10 % High MONO% 11.8 LAB L100.2400 0-5 % Normal EO% 2.5 LAB L100.2500 0-1 % Normal BASO% 0.3 LAB L100.2550 0.0-0.9 % High IM GRAN % 1.300 Result Comment: IG% - Immature Granulocytes (promyelocytes, myelocytes and metamyelocytes) > 1% indicates that a LEFT SHIFT is Present. LAB L100.2620 2.0-7.7 X10 3/uL Normal Absolute Neut 4.1 LAB L100.2720 0.83-4.51 X10 3/ul Normal Absolute Lymph 1.99 Performed By: #### L100.0100, L100.4425 #### [facility] [address] [place], [address] NRBC PANEL Collected: 03/16/2018 Status: F Source: KINNEY 11:40 AM [facility] [place] CODE TESTS RESULT OUT OF RANGE REFERENCE UNITS LAB L100.4450 0-5 % Normal NRBC, FLAGGED 0.8 LAB L100.4455 0-5 10 3/uL Normal NRBC # 0.06 Performed By: #### L100.0100, L100.4425 #### [facility] [address] [place], [address] VENOUS DUPLEX LOWER Observed: 03/15/2018 Status: F Source: KINNEY EXTREMITY 2:23 PM [facility] [place] [facility] Cardiovascular Services [address] [place] [address] Venous Duplex US, Unilateral 03/14/18 1056 MR#: [id number] Acct: [id number] Name: SHARON REED Rep #: [id number] : 1945 72 From: Luis E Faust MD Attending Dr: Beka Robbins DO Status: ADM IN Ordering Dr: Beka Robbins DO Date: 03/13/18 Location: Sex: F AA Admitted: 03/09/18 Reason For Study: edema RIGHT LEFT CFV is compressible, spontaneous, phasic, GSV is normal. competent and demonstrates normal CFV is compressible, spontaneous, phasic, augmentation. competent, and demonstrates normal Procedure augmentation. Exam performed portable in patient room. FV is compressible, spontaneous, phasic, The exam was diagnostic. competent and demonstrates normal A preliminary report was called and/or faxed augmentation. to the pt's RN. POP V is compressible, spontaneous, phasic, competent and demonstrates normal augmentation. T/P Trunk is compressible. PTV is compressible. LT PerV is compressible. Interpretation Summary Deep veins of the left lower extremity are patent and compressible segmentally. There is no evidence of left lower extremity deep vein thrombosis. Valvular competence appears intact within the proximal deep venous system on the left . The left greater saphenous vein appears patent and compressible segmentally. Ordering Physician: Beka Robbins Performed By: Isreal Rangel, RVT 03/15/18 1423 Date Luis E Faust MD CC: Alvaro Mckeon MD; Beka Robbins DO; Lazaro Sorensen MD Date Dictated: 03/14/18 1056 Date Transcribed: 03/15/18 142 Arm[employer] Reconnaissance Vehicle Crewman: Signed CBC W/DIFF, AUTOMATED Collected: 03/15/2018 Status: F Source: JACQUELINE 5:20 AM [facility] [place] CODE TESTS RESULT OUT OF RANGE REFERENCE UNITS LAB L100.1000 4.4-11.0 K/mm3 Normal WBC 6.8 LAB L100.1200 4.2-5.4 M/mm3 Low RBC 3.02 LAB L100.1300 12.0-15.0 g/dl Low HGB 8.0 LAB L100.1400 37-47 % Low HCT 26.3 LAB L100.1500 81-99 fL Normal MCV 87.1 LAB L100.1600 27.0-32.0 pg Low MCH 26.5 LAB L100.1700 32-36 g/gl Low MCHC 30.4 LAB L100.1810 11.6-14.6 % High RDW CV 15.8 LAB L100.1820 35.1-43.9 fl High RDW SD 50.4 LAB L100.1900 150-450 K/mm3 Normal PLT 404 LAB L100.2000 6.2-12.0 fl Normal MPV 8.8 LAB L100.2100 47-70 % Normal NEUT% 51.8 LAB L100.2200 19-41 % Normal LY% 30.4 LAB L100.2300 0-10 % High MONO% 13.1 LAB L100.2400 0-5 % Normal EO% 3.4 LAB L100.2500 0-1 % Normal BASO% 0.3 LAB L100.2550 0.0-0.9 % High IM GRAN % 1.000 Result Comment: IG% - Immature Granulocytes (promyelocytes, myelocytes and metamyelocytes) > 1% indicates that a LEFT SHIFT is Present. LAB L100.2620 2.0-7.7 X10 3/uL Normal Absolute Neut 3.5 LAB L100.2720 0.83-4.51 X10 3/ul Normal Absolute Lymph 2.07 Performed By: #### L100.0100 #### [facility] [address] [place], [place], [id number] BASIC METABOLIC Collected: 03/14/2018 Status: F Source: KINNEY PROFILE (BMP) 5:15 AM [facility] [place] TYPE CODE TESTS RESULT OUT OF RANGE REFERENCE UNITS LAB L501.0100 74-106 mg/dL Normal GLU 86 Result Comment: Please note revised GLUCOSE reference range effective 2017. LAB L501.1000 7-18 mg/dL Normal BUN 18 LAB L501.1100 0.55-1.02 mg/dL High CREAT,SERUM 1.23 Result Comment: The validity of the calculated GFR AND GFRAA in patients over 70 years has not been determined. Clinical correlation is essential. LAB L501.1110 >60 mL/min Low EST GFR 45 Result Comment: Non- GFR Calc LAB L501.1115 >60 mL/min Low EST GFR - AA 55 Result Comment: GFR Calc LAB L501.1255 ml/min Normal Estimated CRCL 33.19 LAB L501.1300 10-20 RATIO Normal BUN/CRE 14.6 LAB L501.2200 8.5-10 mg/dL Low .1 CA 8.4 LAB L501.5300 136-14 mmol/L Normal 5 NA 140 LAB L501.5600 3.5-5. mmol/L Normal 1 K 4.4 LAB L501.5900 98-107 mmol/L Normal CL 106 LAB L501.6100 21.0-3 mmol/L Normal 2.0 CO2 29.0 LAB L501.6200 5-15 Normal GAP 5 Performed By: #### L500.2500 #### [facility] [address] [place], [address] CBC W/DIFF, AUTOMATED Collected: 03/14/2018 Status: F Source: KINNEY 5:15 AM [facility] [place] CODE TESTS RESULT OUT OF RANGE REFERENCE UNITS LAB L100.1000 4.4-11.0 K/mm3 Normal WBC 6.7 LAB L100.1200 4.2-5.4 M/mm3 Low RBC 2.62 LAB L100.1300 12.0-15.0 g/dl Low HGB 7.2 LAB L100.1400 37-47 % Low HCT 23.0 LAB L100.1500 81-99 fL Normal MCV 87.8 LAB L100.1600 27.0-32.0 pg Normal MCH 27.5 LAB L100.1700 32-36 g/gl Low MCHC 31.3 LAB L100.1810 11.6-14.6 % High RDW CV 15.1 LAB L100.1820 35.1-43.9 fl High RDW SD 46.5 LAB L100.1900 150-450 K/mm3 Normal PLT 353 LAB L100.2000 6.2-12.0 fl Normal MPV 9.4 LAB L100.2100 47-70 % Normal NEUT% 51.0 LAB L100.2200 19-41 % Normal LY% 30.1 LAB L100.2300 0-10 % High MONO% 14.7 LAB L100.2400 0-5 % Normal EO% 2.7 LAB L100.2500 0-1 % Normal BASO% 0.3 LAB L100.2550 0.0-0.9 % High IM GRAN % 1.200 Result Comment: IG% - Immature Granulocytes (promyelocytes, myelocytes and metamyelocytes) > 1% indicates that a LEFT SHIFT is Present. LAB L100.2620 2.0-7.7 X10 3/uL Normal Absolute Neut 3.4 LAB L100.2720 0.83-4.51 X10 3/ul Normal Absolute Lymph 2.03 Performed By: #### L100.0100 #### [facility] [address] [place], [address] VENOUS DUPLEX LOWER Observed: 03/11/2018 Status: F Source: KINNEY EXTREMITY 7:21 PM [facility] [place] [facility] Cardiovascular Services [address] [place] [address] Venous Duplex US - Nav Extrem 03/10/18 1007 MR#: [id number] Acct: [id number] Name: SHARON REED Rep #: [id number] : 1945 72 From: Luis E Faust MD Attending Dr: Aftab Alvarado MD Status: ADM IN Ordering Dr: Diane Nevarez Date: 03/10/18 Location: Sex: F AA Admitted: 03/09/18 Reason For Study: LEG PAIN RIGHT LEFT GSV is normal. GSV is normal. CFV is compressible, spontaneous, phasic, CFV is compressible, spontaneous, phasic, competent and demonstrates normal competent, and demonstrates normal augmentation. augmentation. FV is compressible, spontaneous, phasic, FV is compressible, spontaneous, phasic, competent and demonstrates normal competent and demonstrates normal augmentation. augmentation. POP V is compressible, spontaneous, phasic, POP V is compressible, spontaneous, phasic, competent and demonstrates normal competent and demonstrates normal augmentation. augmentation. T/P Trunk is compressible. T/P Trunk is compressible. PTV is compressible. PTV is compressible. RT PerV is compressible. LT PerV is compressible. Procedure Exam performed portable in patient room. A preliminary report was called and/or faxed to RU nurse. Interpretation Summary Deep veins of the lower extremities are bilaterally patent and compressible segmentally. There is no evidence of deep vein thrombosis on either side. Valvular competence appears intact within the proximal deep venous systems bilaterally. The greater saphenous veins appear bilaterally patent and compressible segmentally. Ordering Physician: Diane Nevarez Referring Physician: Lazaro Sorensen M.D. 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 Please see ARIELLA Nevarez's note as below for further complete details. I have discussed the management plan for the patient in detail with ARIELLA Nevarez and please see the plan as noted below, 72 CF with PMH HTN, anxiety, GERD admitted to [facility] with debility post left total knee replacement for > 3 hrs therapy daily with a goal of returning back to her home at or near her prior level of functional independence, surgery done on 03/07/[address] Vazquez, PT/OT, GI/DVT prophylaxis, fall precautions. Further medical management per hospitalist recommendations. 03/09/182110 <Electronically signed by Reji Mckeon MD> Date Reji cMkeon MD cc: ARIELLA Nevarez; Alvaro Mckeon MD; Lazaro Sorensen MD * Signed History of Present Illness Date of Admission: 03/09/18 Chief Complaint: Left Total Knee Replacement The patient is a 72 year old Female who was admitted to the rehab unit for rehabilitation following a left total knee arthroplasty on 03/07/[address] Vazquez. Without complications. Patient has a past medical history of hypertension, GERD, chronic constipation, iron deficiency anemia, and anxiety. She lives with her grandson in a two story home with 5 steps to get in the home. Her plan is to go to her granddaughter house after discharge from the Rehab unit. She was previous completely functionally independent and is admitted to the rehab unit in order to restore her previous level of functional independence. Past Medical History Past Medical History (Chronic Problems): Chronic Problems (Last Updated 01/25/18 @ 14:25 by Omero Moore) Benign essential hypertension (Chronic) Chronic constipation (Chronic) GERD (gastroesophageal reflux disease) (Chronic) Allergies codeine Adverse Reaction (Verified 02/28/18 14:26) Nausea latex Adverse Reaction (Verified 03/08/18 20:53) Rash tape causes blisters tramadol [From Ultra] Adverse Reaction (Verified 03/09/18 06:29) Itching Home Medications: Ambulatory Orders Medication Instructions Recorded Verapamil HCl 360 mg PO DAILY 07/16/16 Surgical History: noncontributory, - - Left foot 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 Lives: With Family - grandson Smoking Status: Never smoker Tobacco Use: Non-smoker Alcohol: None Drugs: None - *Family History Sibling History Items: Diabetes Review of Systems Constitutional: Denies: Chills, Fever, Weight Change HEENT: Denies: Head Aches, Sinus Congestion, Sinus Drainage Cardiovascular: Denies: Chest Pain, Palpitations Respiratory: Denies: Cough, Shortness of breath at rest, Sputum production Gastrointestinal: Denies: Abdominal Pain, Nausea, Vomiting Genitourinary: Denies: Dysuria Musculoskeletal: Denies: Joint Pain, Joint Tenderness Skin: Denies: Rash, Wounds Neurological: Denies: Numbness, Tingling, Focal weakness Psychiatric: Denies: Anxiety, Depression, Homicidal Ideations, Suicidal Ideations Hematologic/ Lymphatic: Denies: Easy Bruising, Easy Bleeding VTE Information - Inpt Only VTE Present on Admission: Yes VTE Mechan Device Prophylaxis: SCD's, Knee High FÁTIMA Hose VTE Pharm Prophylaxis ordered?: Yes - Physical Exam General: Alert, Oriented x3, Cooperative HEENT: Atraumatic, PERRLA, EOMI, Normocephalic Neck: Supple, No JVD, Negative Carotid Bruits Lungs: Clear to auscultation, Normal air movement Cardiovascular: Regular rate, No murmurs Abdomen: Bowel Sounds Present, Soft, Non Tender Extremities: No edema, Capillary Refill Less than 3 Seconds Skin: No rashes, No breakdown Musculoskeletal: No Tenderness to Palpation of Joints or Extremities Neurological: Cranial nerves II-XII grossly intact Psych/Mental Status: Normal Affect, Appropriate, Alert and oriented to time, place, person, mood and affect Vital Signs Temp Pulse Resp BP Pulse Ox 98.0 F 94 20 H 145/62 H 91 03/09/18 14:10 03/09/18 14:10 03/09/18 14:10 03/09/18 14:10 03/09/18 14:10 Oxygen Delivery Method Room Air Weight: 114 kg Body Mass Index (BMI) 44.5 Active Medications Aspirin (Ecotrin) 325 mg PO BIDCM DUANE Bisacodyl (Dulcolax) 10 mg RECTAL .PRN X 1 PRN PRN Reason: Constipation Docusate Sodium (Colace) 100 mg PO BID PRN PRN PRN Reason: Constipation Famotidine (Pepcid) 40 mg PO DAILY DUANE Folic Acid (Folic Acid) 1 mg PO DAILY@0800 DUANE Magnesium Hydroxide (Milk Of Magnesia) 30 ml PO .PRN X 1 PRN PRN Reason: Constipation Multivitamins/Minerals (Multivitamin With Minerals) 1 tablet PO DAILY@0800 DUANE Oxycodone HCl (Oxyir) 5 - 10 mg PO Q4H PRN PRN PRN Reason: PAIN Polysaccharide Iron Complex (Ferrex 150) 150 mg PO DAILYCM DUANE Promethazine HCl (Phenergan Tablet) 25 mg PO Q4H PRN PRN PRN Reason: NAUSEA Senna/Docusate Sodium (Senokot-S, Rafia-Colace) 2 tablet PO BID DUANE Verapamil HCl (Calan Sr) 360 mg PO DAILY DUANE Assessment/Plan Debility status post Left total knee replacement surgery. Goal of rehab is mu-ism of prior level of functional independence. Plan: - Physical therapy for gait and balance - Occupational Therapy for ADLs - As needed analgesics - Bowel protocol - DVT prophylaxis: BID Aspirin therapy 325mg BID, per orthopedic surgeon, Fátima Saucedo - HLD - continue home dose of statin - HTN - stable => continue home medications of verapamil - Post op anemia - resolved Hgb on 07/22 was 10.7, No signs of any bleeding. - Anemia 2/2 acute blood loss following surgery, baseline hemoglobin approximately 10. Hemoglobin currently 8 -> patient placed on Ferrex - Hypokalemia => K+ 3.3, K-Dur 40 meq x 3 days recheck K+ on 4th day 07/30. - Status post left total knee arthroplasty -> incision C/D/I, well approximated, no drainage noted. - Hx: GERD-continue home famotidine regimen. - Hx: Chronic constipation-continue current bowel regimen including MiraLAX daily and senna/docusate sodium twice daily. 03/09/18 1710 <Electronically signed by Diane Nevarez HIGH PRESSURE CLEANER-C> Date Diane Nevarez HIGH PRESSURE CLEANER-C 03/09/184<Electronically signed by Reji Mckeon MD> Cosigner Signature (if applicable): Date Reji Mckeon MD CC: ARIELLA Nevarez; Alvaro Mckeon MD; Lazaro Sorensen MD Signed DISCHARGE INSTRUCTION Observed: 03/09/2018 Status: F Source: JACQUELINE 7:01 AM [facility] [place] [facility] Medical Records Department [address] [place] [address] Instructions for Home/Discharge Instructions 03/09/18 0659 MR#: [id number] Acct: [id number] Name: SHARON REED Rep #: [id number] : 1945 72 From: Derek Vazquez DO PCP: Lazaro Sorensen MD Status: ADM IN Discharge Activity: Return to Normal Activity, May not drive while taking narcotic pain medications., May Shower, Use Walker May shower in (days): 1 May resume sexual activity in: No Restrictions Ice area for (Minutes): 20 Weight Bearing Status: Weight bearing as tolerated Elevate: Left Leg Additional Activity Instructions:: Work on gaining full extension and flexion. Activity as tolerated. Call your doctor if your incision/area has: Continuous Slow Oozing, Sudden Increased Bleeding, Increased Pain/ Swelling, Increased Redness, Foul Smelling Discharge, Swelling at the incision site Call your doctor if you observe: Fever of 101 or Higher, Coldness, Increased Pain, Numbness or Tingling, Change in Color, Inability to urinate, Inability to have a bowel movement, Using more than one pad per hour, Shortness of breath, Dizziness, Fainting spells, Swelling in the ankles, Chest pain, Prolonged hiccoughing, Increased palpitations (irregular heartbeat), Calf discomfort, Uncontrolled pain Suture Line Care: Avoid Pulling/Pushing, Avoid Pinching/Bending Change Dressing in (Days):: 5 Remove Dressing in (days):: 5 Cleanse incision/area with: Soap AND Water Additional Dressing/Incision Instructions:: Silverlon dressing stays in place for 5 total days. If signs of blister formation around edges, the dressing can be removed and simple application of triple antibiotic Neosporin or bacitracin equivalent can be used. Patient may shower at this time. Do not submerge wound. Allergies/Adverse Reactions: Allergies codeine Adverse Reaction (Verified 02/28/18 14:26) Nausea latex Adverse Reaction (Verified 03/08/18 20:53) Rash tape causes blisters tramadol [From [facility]] Adverse Reaction (Verified 03/09/18 06:29) Itching Medications to take at Discharge Verapamil HCl 360 mg PO DAILY 07/16/16 proMETHazine tablet [Phenergan tablet] 25 mg PO Q4H PRN PRN #10 tab 06/28/17 Diazepam 10 mg PO PRN PRN 02/28/18 Aspirin E.C. [Ecotrin] 325 mg PO BID #30 tab 03/09/18 Docusate Sodium [Colace] 100 mg PO BID PRN PRN #10 cap 03/09/18 Famotidine [Pepcid] 40 mg PO DAILY #30 tab 03/09/18 Folic Acid 1 mg PO DAILY@0800 #30 tab 03/09/18 Iron Polysaccharide Complex [Ferrex 150] 150 mg PO DAILYCM #30 cap 03/09/18 Multivit with Calcium,Iron,Min [Multiple Vitamins For Women] 1 ea PO DAILY #30 tab 03/09/18 Oxycodone HCl/Acetaminophen [Percocet 5/325] 1 - 2 tab PO Q4H PRN PRN #60 tab 03/09/18 proMETHazine tablet [Phenergan] 25 mg PO Q4H PRN PRN #10 tab 03/09/18 The following prescriptions were given: Oxycodone HCl/Acetaminophen [Percocet 5/325] 1 - 2 tab PO Q4H PRN PRN #60 tab PRN Reason: Pain proMETHazine tablet [Phenergan] 25 mg PO Q4H PRN PRN #10 tab PRN Reason: Nausea Docusate Sodium [Colace] 100 mg PO BID PRN PRN #10 cap PRN Reason: Constipation Famotidine [Pepcid] 40 mg PO DAILY #30 tab Folic Acid 1 mg PO DAILY@0800 #30 tab Iron Polysaccharide Complex [Ferrex 150] 150 mg PO DAILYCM #30 cap Multivit with Calcium,Iron,Min [Multiple Vitamins For Women] 1 ea PO DAILY #30 tab Aspirin E.C. [Ecotrin] 325 mg PO BID #30 tab Primary Care Physician: Lazaro Sorensen MD [Primary Care Provider] - Please Follow Up With: Derek Vazquez DO When: call [facility] for appt for 2 weeks Proposed Discharge Date: 03/09/18 03/09/18 0701 <Electronically signed by Derek Vazquez DO> Date Derek Vazquez DO CC: Lazaro Sorensen MD CBC-COMPLETE BLOOD CNT Collected: 03/09/2018 Status: F Source: JACQUELINE NO DIFF 6:23 AM [facility] [place] TYPE CODE TESTS RESULT OUT OF RANGE REFERENCE UNITS LAB L100.1000 4.4-11.0 K/mm3 Normal WBC 10.1 LAB L100.1200 4.2-5.4 M/mm3 Low RBC 2.90 LAB L100.1300 12.0-15.0 g/dl Low HGB 8.0 LAB L100.1400 37-47 % Low HCT 25.9 LAB L100.1500 81-99 fL Normal MCV 89.3 LAB L100.1600 27.0-32.0 pg Normal MCH 27.6 LAB L100.1700 32-36 g/gl Low MCHC 30.9 LAB L100.1810 11.6-14.6 % High RDW CV 14.7 LAB L100.1820 35.1-43.9 fl High RDW SD 47.1 LAB L100.1900 150-450 K/mm3 Normal PLT 227 LAB L100.2000 6.2-12.0 fl Normal MPV 9.7 Performed By: #### L100.0500 #### [facility] [place] [place], [address] BASIC METABOLIC Collected: 03/09/2018 Status: F Source: JACQUELINE PROFILE (BMP) 6:23 AM [facility] [place] TYPE CODE TESTS RESULT OUT OF RANGE REFERENCE UNITS LAB L501.0100 74-106 mg/dL Normal GLU 88 Result Comment: Please note revised GLUCOSE reference range effective 2017. LAB L501.1000 7-18 mg/dL High BUN 29 LAB L501.1100 0.55-1.02 mg/dL High CREAT,SERUM 1.90 Result Comment: The validity of the calculated GFR AND GFRAA in patients over 70 years has not been determined. Clinical correlation is essential. LAB L501.1110 >60 mL/min Low EST GFR 27 Result Comment: Non- GFR Calc LAB L501.1115 >60 mL/min Low EST GFR - AA 33 Result Comment: GFR Calc LAB L501.1255 ml/min Normal Estimated CRCL 21.49 LAB L501.1300 10-20 RATIO Normal BUN/CRE 15.3 LAB L501.2200 8.5-10 mg/dL Low .1 CA 8.2 LAB L501.5300 136-14 mmol/L Normal 5 NA 139 LAB L501.5600 3.5-5. mmol/L Normal 1 K 4.3 LAB L501.5900 98-107 mmol/L Normal CL 106 LAB L501.6100 21.0-3 mmol/L Normal 2.0 CO2 26.0 LAB L501.6200 5-15 Normal GAP 7 Performed By: #### L500.2500 #### [facility] [address] [place], [place], [id number] CBC-COMPLETE BLOOD CNT Collected: 03/08/2018 Status: F Source: JACQUELINE NO DIFF 6:00 AM [facility] [place] TYPE CODE TESTS RESULT OUT OF RANGE REFERENCE UNITS LAB L100.1000 4.4-11.0 K/mm3 Normal WBC 8.0 LAB L100.1200 4.2-5.4 M/mm3 Low RBC 3.26 LAB L100.1300 12.0-15.0 g/dl Low HGB 9.1 LAB L100.1400 37-47 % Low HCT 29.4 LAB L100.1500 81-99 fL Normal MCV 90.2 LAB L100.1600 27.0-32.0 pg Normal MCH 27.9 LAB L100.1700 32-36 g/gl Low MCHC 31.0 LAB L100.1810 11.6-14.6 % High RDW CV 14.8 LAB L100.1820 35.1-43.9 fl High RDW SD 47.5 LAB L100.1900 150-450 K/mm3 Normal PLT 280 LAB L100.2000 6.2-12.0 fl Normal MPV 9.6 Performed By: #### L100.0500 #### [facility] [address] [facility] [place], [place], [id number] BASIC METABOLIC Collected: 03/08/2018 Status: F Source: JACQUELINE PROFILE (BMP) 6:00 AM [facility] [place] TYPE CODE TESTS RESULT OUT OF RANGE REFERENCE UNITS LAB L501.0100 74-106 mg/dL Normal GLU 91 Result Comment: Please note revised GLUCOSE reference range effective 2017. LAB L501.1000 7-18 mg/dL High BUN 27 LAB L501.1100 0.55-1.02 mg/dL High CREAT,SERUM 1.90 Result Comment: The validity of the calculated GFR AND GFRAA in patients over 70 years has not been determined. Clinical correlation is essential. LAB L501.1110 >60 mL/min Low EST GFR 27 Result Comment: Non- GFR Calc LAB L501.1115 >60 mL/min Low EST GFR - AA 33 Result Comment: GFR Calc LAB L501.1255 ml/min Normal Estimated CRCL 21.49 LAB L501.1300 10-20 RATIO Normal BUN/CRE 14.2 LAB L501.2200 8.5-10 mg/dL Low .1 CA 8.3 LAB L501.5300 136-14 mmol/L Normal 5 NA 141 LAB L501.5600 3.5-5. mmol/L Normal 1 K 4.5 LAB L501.5900 98-107 mmol/L Normal CL 106 LAB L501.6100 21.0-3 mmol/L Normal 2.0 CO2 26.0 LAB L501.6200 5-15 Normal GAP 9 Performed By: #### L500.2500 #### [facility] [address] [place], [address] OPERATIVE REPORT Observed: 03/07/2018 Status: F Source: KINNEY 12:19 PM [facility] Medical Records Department [address] [place] [address] Operative Report 03/07/18 1208 MR#: [id number] Acct: [id number] Name: SHARON REED Rep #: [id number] : 1945 72 From: Derek Vazquez DO PCP: Lazaro Sorensen MD Status: ADM IN Location: [facility] [place] MF433-3 Report of Operation Date of Procedure: 03/07/18 Pre-Operative Diagnosis: Left knee osteoarthritis Post-Operative Diagnosis: Same as above Surgery/Procedure Performed:: Left total knee arthroplasty- Leeanne HYGIEIAgallito Description of Surgical Findings:: 72-year-old female with recalcitrant left knee pain that failed nonoperative management to include NSAIDs activity modifications physical therapy and injections. Patient had plain from radiographs and MRI that showed her to have patellofemoral arthrosis and medial compartment narrowing subchondral edema and meniscal extrusion. Based on age and having failed conservative measures my recommendation was for total knee arthroplasty. Patient agreed due to knee pain affecting her activities of daily living. Patient was met in the holding area over the left lower extremity was marked and identified by the with surgeon. Patient was taken the operating room in satisfactory condition with somewhat to place to identify patient operative procedure and limb. She received 2 g Ancef and 1 g of TXA. Patient underwent a successful general anesthesia and was then prepped and draped in usual fashion. Patient had a well-placed tourniquet the right proximal thigh prior to dressing. Right lower extremity was elevated Esmarch used for exsanguination and tourniquet was increased to 250 mmHg for roughly 60 minutes. Patient had a standard midline incision made 2 fingerbreadths above the patella down to the tibial tubercle. She then underwent a standard medial parapatellar approach. Patient had a large return effusion and significant synovitis. She had went underwent a synovectomy and an anterior release. We performed a standard posterior medial release. We then translated the patella laterally and introduced our canal finder to perform our distal femoral cut. Intramedullary guide was placed we took 8 mm off the distal femur to the fact there was no flexion contracture. We used a 6 valgus cut. After standard cuts were performed we then size. The patient sized to a size 4 femur. Standard cuts were performed. We then turned our attention to the tibia. Tibial guide was set with 3 posterior slope for a CR component. 2 mm were taken off the medial aspect the knee in standard cut was performed. We then brought the leg out to full extension resected out any axis remnant menisci and cauterized the geniculate vessels. The PCL was preserved. 9 mm spacer was introduced. With excellent mechanical alignment and we showed no flexion extension gaps at 0 30 and 90 . At that point time the size 4 femur was then placed in the 3 tibial tray with see the patient better was seated as well. 9 mm spacer was introduced and again we maintained excellent mechanical alignment. Tibial tray was set accordingly. Keel holes placed for the femur the femur was then extracted. We then placed her keel punch in anticipation of a press-fit femur and tibial component secondary to excellent bone quality. This was all done using standard technique. Upon completion we turned our attention to the patella. The patient's patella thickness was 24 mm. We took off 12 in anticipation of placing a 38 patella button. The patella button was prepared in anticipation of a cemented patella component. At that point time trial components were removed and the wound was copiously irrigated to remove the excess debris. We then injected around the soft tissues into the capsule roughly 60 cc of periarticular joint cocktail for pain control. At that point time the cement was prepared the back table during placement of the press-fit femoral and tibial components. Mechanical alignment was preserved trial poly-removed Camila joint was copiously irrigated and a 9 mm CS Annemarie was then introduced to the tibia using standard technique. Cement was prepared at that point time and the patella button then seated using standard technique. Wound scopes irrigated during the cement curing process. During range of motion we showed no signs of her abnormal tracking and no lateral release was performed. At that point time we began our closure. Distal two thirds were closed in 30 knee flexion with #2 Vicryl using [id number] technique. The proximal one third was closed with #2 Vicryl using in full extension. The remaining soft tissues were reapproximated with 2-0 Vicryl sending running subcuticular Monocryl and Dermabond application. Silverlon dressing was then applied. Tourniquet had been let down after roughly 60 minutes. No drains or complications. Implants included [place] triathlon press-fit femur #4, press-fit tibia #3, 9 mm CS tibia, 38 patella button cemented. Patient will be admitted to the floor for 24 hours of IV antibiotics appropriate IV and p.o. pain medication and DVT prophylaxis to include SCDs teds and 325 p.o. twice daily of aspirin with appropriate GI prophylaxis. Any issues please contact me. supervisor type photography: Margarito Whitman Type of Anesthesia:: General, General/Regional Specimen's removed: Bone cuts Estimated Blood Loss (mL): 50 Grafts/Implants Used: Striker triathlon press-fit - Complications None - Admit VTE Documentation VTE Present on Admission: No VTE Mechan Device Prophylaxis: SCD's, Knee High FÁTIMA Hose VTE Pharm Prophylaxis ordered?: Yes 03/07/18 5822 <Electronically signed by Derek Vazquez DO> Date Derek Vazquez DO CC: Lazaro Sorensen MD; Derek Vazquez DO Signed KNEE 1 OR 2 VIEWS Observed: 03/07/2018 Status: F Source: JACQUELINE 9:33 AM [facility] Imaging Services [address] [place] [address] Knee 1 or 2 Views MR#: [id number] Acct: [id number] Name: SHARON REED Rep #: [id number] : 1945 F 72 From: Tone Her MD PCP: Lazaro Sorensen MD Status: ADM IN Study: Knee 1 or 2 Views Date of Exam: 03/07/18 Exam# [id number] Ordering Dr: Derek Vazquez DO STUDY: X-RAY - LEFT KNEE REASON FOR EXAM: Female, 72 years old. Postop left knee replacement. TECHNIQUE: 2 view(s) of the knee. COMPARISON: None. FINDINGS: The patient is status post knee arthroplasty in anatomic alignment. There are typical and expected immediate postoperative soft tissue changes. There is no significant incidental finding. RAD/Knee 1 or 2 Views IMPRESSION: Status post left knee arthroplasty in anatomic alignment. No significant incidental finding. Electronically Signed: Tone Her MD at 13:06 EDT , Service support , CC: Lazaro Sorensen MD; Derek Vazquez DO Armor Reconnaissance Vehicle Crewman: Signed TOTAL KNEE REPLACEMENT Observed: 03/07/2018 Status: F Source: J[place]QUELINE 12:00 AM [facility] Patient: SHARON REED : 1945 (72/F) Acct Num: [id number] Phys: Derek Vazquez DO Unit Num: [id number] Loc: MS3 DX290-7 Specimen: [id number] Received: 03/07/18 - 1453 Spec Type: TOTAL KNEE TISSUES TISSUES: Knee, NOS GROSS DESCRIPTION Received is one container designated bone and soft tissue left knee. The specimen consists of multiple fragments of harden-yellow bone measuring in aggregate 15 x 10 x 2 cm. Also in the specimen container are multiple fragments of yellow-white soft tissue measuring in aggregate 8 x 5 x 2 cm. A number of bony fragments contain articular surfaces consistent with tibial plateau and femoral condyle and displaying prominent osteophyte formation, eburnation, and bone erosion. Regional Controller sections are submitted in two cassettes as follows : 1 - soft tissue, 2 - bone after decalcification. / AM:mariah 03/07/18 TC:5 CPT: 66307, 94528 HEADER OPERATION: Total knee replacement PRE-OP DIAGNOSIS: Primary osteoarthritis of left knee TISSUE SUBMITTED: Bone and tissue of left knee MICROSCOPIC DESCRIPTION Slides are reviewed. MICROSCOPIC DIAGNOSIS Bone and soft tissue of left knee, total knee resection: Degenerative joint disease. Mild synovial hyperplasia. AM:mariah 03/10/18 Signed [facility] 03/10/18 <signature on file> Performed By: #### PKNEE #### [facility] [address] [place] [address]. [place], [address] 12 LEAD ELECTROCARDIOGRAM Observed: 03/05/2018 Status: F Source: KINNEY 8:54 PM [facility] Cardiovascular Services [address] [place] [address] EKG - [facility] [place] 02/28/18 1238 MR#: [id number] Acct: [id number] Name: SHARON REED Rep #: [id number] : 1945 72 From: Jaron Miles MD Attending Dr: Derek Vazquez DO Status: PRE IN Ordering Dr: Beka Roman MD Date: 02/28/18 Location: [facility] [place] Sex: F AA Admitted: Test Reason : Blood Pressure : / mmHG Vent. Rate : 084 BPM Atrial Rate : 084 BPM P-R Int : 150 ms QRS Dur : 092 ms QT Int : 392 ms P-R-T Axes : 034 008 045 degrees QTc Int : 463 ms Normal sinus rhythm Normal ECG Confirmed by JARON MILES ([id number]), scientific publications editor WYATT SORENSEN ([id number]) on 03/02/2018 2:10:11 PM Referred By: Derek Vazquez Confirmed By:JARON MILES 03/02/18 1410 Date Jaron Miles MD CC: Beka Roman MD; Lazaro Sorensen MD; Derek Vazquez DO Date Dictated: 02/28/18 1238 Date Transcribed: 02/28/18 123 Armor Reconnaissance Vehicle Crewman: Signed ORTHOPEDIC VISIT Observed: 03/03/2018 Status: F Source: KINNEY REPORT 9:59 AM [facility] Orthopaedics AND Sports Medicine [address] [place] [address] OFFICE VISIT Date of Service: 02/28/18 MR#: [id number] Acct: [id number] Name: SHARON REED Rep #: [id number] : 1945 Provider: Florence Finley DO Age/Sex: 72/F Location: [facility] [place] [place] Status: Signed Intake Intake Visit Reasons: Bilat Hand Pain Is patient in pain?: Yes Allergies codeine Adverse Reaction (Verified 02/28/18 14:26) Nausea latex Adverse Reaction (Verified 02/28/18 14:26) Rash Medications Verapamil HCl 360 mg PO DAILY 07/16/16 [History Confirmed 02/28/18] proMETHazine tablet [Phenergan] 25 mg PO Q4H PRN PRN #10 tab 06/28/17 [Rx Confirmed 02/28/18] Diazepam 10 mg PO PRN PRN 02/28/18 [History Confirmed 02/28/18] PFSH Medical History High cholesterol (Chronic) Hypertension (Chronic) Surgical History H/O arthroscopy of left knee (Inactive) h/o left shoulder arthroscopy (Inactive) Social History Smoking Status: Never smoker HPI Bilat Hand Pain: Details: SHARON REED is a 72 year old F here today for bilateral trigger finger. Patient notes that she has trigger fingers of her bilateral 3rd finger. She also notes that she is unable to fully flex her right 5th finger after an injury to her right 5th finger and now is unable to flex digit on its own. She has to straighten her fingers with her other hand. She denies any injections, therapy or xrays. She notes that she has numbness into her right 5th and left 4th finger. She denies any EMG. ROS Const Reports system reviewed and no additional complaints, except as docu Eyes Reports system reviewed and no additional complaints, except as docu ENT Reports system reviewed and no additional complaints, except as docu Card Reports system reviewed and no additional complaints, except as docu Resp Reports system reviewed and no additional complaints, except as docu GI Reports system reviewed and no additional complaints, except as docu Reports system reviewed and no additional complaints, except as docu Musc Reports joint pain, Reports stiffness Skin/Breast Reports system reviewed and no additional complaints, except as docu Neuro Yes system reviewed and no additional complaints, except as docu Psych Reports system reviewed and no additional complaints, except as docu Endo Reports system reviewed and no additional complaints, except as docu Ortho Exam Right Wrist/Hand Skin/Wound: Yes CDI Contralateral Normal: No A1 denise trigger: Yes (right ring finger ) Motor: EPL: 5, FDP-2: 5, 1st Dorsal Interosseous: 5, APB: 5 Sensation: Radial: I, Ulnar: I, Median: I Left Wrist/Hand Skin/Wound: Yes CDI Contralateral Normal: No A1 denise trigger: Yes (middle) Motor: EPL: 5, FDP-2: 5, 1st Dorsal Interosseous: 5, APB: 5 Sensation: Radial: I, Ulnar: I, Median: I Assessment AND Plan 1. Trigger finger, left middle finger M65.332 Plan mri to evaluate for preop planning for right fifth finger profundus tear. X-rays were reviewed. There is no obvious fracture, dislocation, or lucency noted. Educated the patient on the anatomy of the hand and denise system, explained that her treatment options for the trigger fingers is a steroid injection or surgical release. She also has a flexor digitorum profundus tear with inability to flex the distal phalanx of the right small finger. Follow up or sooner if pain, swelling, numbness or associated symptoms, or concerns develop. All questions answered. Patient in agreement of plan. 2. Trigger finger, right ring finger M65.341 3. Rupture of flexor tendon of right hand, initial encounter S66.811A Orders Orders: Plan Detail Other Orders Orders: Other Medications Discontinued: diazepam (Valium) Discontinued Reas1 po 1/2 hr prior to procedure PO PRN Miguelina Ely on: Order edited - Discontinuing orig 2 tabs 0RF inal order Coding Level of Care Code Off vis,est,level 4 Diagnoses Trigger finger, left middle finger M65.332 Trigger finger, right ring finger M65.341 Rupture of flexor tendon of right hand, initial encounter S66.811A Encounter type: initial encounter 03/03/18 0959 <Electronically signed by Florence Finley DO> Date Florence Finley DO Cosigner Signature: Date (if applicable) CC: HAND MIN 3 VIEWS Observed: 02/28/2018 Status: F Source: KINNEY 2:50 PM [facility] Imaging Services [address] [place] [address] Hand Min 3 Views MR#: [id number] Acct: [id number] Name: YOSEF REEDA Dao Rep #: [id number] : 1945 F 72 From: Jade Aguilera MD PCP: Lazaro Sorensen MD Status: REG CLI Study: Hand Min 3 Views Date of Exam: 02/28/18 Exam# [id number] Ordering Dr: Florence Finley DO STUDY: X-RAY - LEFT HAND REASON FOR EXAM: Female, 72 years old. Pain TECHNIQUE: Three view(s) of the hand were obtained. COMPARISON: None. FINDINGS: Bones: There are no acute osseous abnormalities. Joints: There is mild narrowing of the radiocarpal joint and first CMC joint. Soft tissues: The soft tissues are unremarkable. Foreign body: None RAD/Hand Min 3 Views IMPRESSION: There are mild degenerative changes in the left wrist. Electronically Signed: Jade Aguilera MD at 12:09 EDT Tel Direct: [phone], Service support , CC: Florence Finley DO; Lazaro Sorensen MD Armor Reconnaissance Vehicle Crewman: Signed HAND MIN 3 VIEWS Observed: 02/28/2018 Status: F Source: KINNEY 2:42 PM [facility] Imaging Services [address] [place] [address] Hand Min 3 Views MR#: [id number] Acct: [id number] Name: SHARON REED Rep #: [id number] : 1945 F 72 From: Carlos Roth MD PCP: Lazaro Sorensen MD Status: REG CLI Study: Hand Min 3 Views Date of Exam: 02/28/18 Exam# [id number] Ordering Dr: Florence Finley DO STUDY: X-RAY - RIGHT HAND REASON FOR EXAM: Bilateral hand pain. TECHNIQUE: 3 view(s) of the hand. COMPARISON: Radiographs 03/23/2017. FINDINGS: Normal radiocarpal articulation. Normal distal radioulnar joint. Normal visualized carpal bones. There is joint space narrowing of the triscaphe articulation. Normal carpometacarpal articulation of the thumb. Normal second through fifth carpometacarpal joints. Normal metacarpi. Normal metacarpophalangeal joint of the thumb. Normal interphalangeal joint of the thumb. Normal proximal and distal phalanges of the thumb. Normal metacarpophalangeal joints of the second through fifth fingers. Normal proximal and distal interphalangeal joints of the second through fifth fingers. Normal phalanges of the second through fifth fingers. The soft tissue structures are unremarkable. RAD/Hand Min 3 Views IMPRESSION: Triscaphe arthrosis. Otherwise, unremarkable x-ray examination of the right hand. Electronically Signed: Carlos Roth MD at 16:15 EDT Tel , Service support , CC: Florence Finley DO; Lazaro Sorensen MD Armor Reconnaissance Vehicle Crewman: Signed CBC-COMPLETE BLOOD CNT Collected: 02/28/2018 Status: F Source: JACQUELINE NO DIFF 1:40 PM [facility] TYPE CODE TESTS RESULT OUT OF RANGE REFERENCE UNITS LAB L100.1000 4.4-11.0 K/mm3 Normal WBC 4.9 LAB L100.1200 4.2-5.4 M/mm3 Low RBC 3.63 LAB L100.1300 12.0-15.0 g/dl Low HGB 10.0 LAB L100.1400 37-47 % Low HCT 31.9 LAB L100.1500 81-99 fL Normal MCV 87.9 LAB L100.1600 27.0-32.0 pg Normal MCH 27.5 LAB L100.1700 32-36 g/gl Low MCHC 31.3 LAB L100.1810 11.6-14.6 % Normal RDW CV 14.6 LAB L100.1820 35.1-43.9 fl High RDW SD 45.7 LAB L100.1900 150-450 K/mm3 Normal PLT 269 LAB L100.2000 6.2-12.0 fl Normal MPV 10.0 Performed By: #### L100.0500 #### [facility] [address] [place], [address] BASIC METABOLIC Collected: 02/28/2018 Status: F Source: J[place]QUELINE PROFILE (BMP) 1:40 PM [facility] TYPE CODE TESTS RESULT OUT OF RANGE REFERENCE UNITS LAB L501.0100 74-106 mg/dL High GLU 129 Result Comment: Fasting Glucose result greater than or equal to 126 mg/dL suggests DIABETES MELLITUS per A.D.A. criteria. Please note revised GLUCOSE reference range effective 2017. LAB L501.1000 7-18 mg/dL High BUN 19 LAB L501.1100 0.55-1.02 mg/dL High CREAT,SERUM 1.39 Result Comment: The validity of the calculated GFR AND GFRAA in patients over 70 years has not been determined. Clinical correlation is essential. LAB L501.1110 >60 mL/min Low EST GFR 39 Result Comment: Non- GFR Calc LAB L501.1115 >60 mL/min Low EST GFR - AA 48 Result Comment: GFR Calc LAB L501.1255 ml/min Normal Estimated CRCL 29.37 LAB L501.1300 10-20 RATIO Normal BUN/CRE 13.7 LAB L501.2200 8.5-10 mg/dL Normal .1 CA 8.6 LAB L501.5300 136-14 mmol/L Normal 5 NA 145 LAB L501.5600 3.5-5. mmol/L Normal 1 K 3.7 LAB L501.5900 98-107 mmol/L High CL 109 LAB L501.6100 21.0-3 mmol/L Normal 2.0 CO2 26.0 LAB L501.6200 5-15 Normal GAP 10 Performed By: #### L500.2500 #### [facility] [address] [place], [place], [address] Observed: 02/28/2018 Status: F Source: KINNEY MRSA/SAID SCREEN 1:40 PM [facility] MRSA/SAID SCRN S. AUREUS S. aureus Negative MRSA MRSA Negative Performed By: #### M100.651 #### [facility] [address] [place], [place], [address] ORTHOPEDIC VISIT Observed: 02/20/2018 Status: F Source: JACQUELINE REPORT 7:59 AM [facility] Orthopaedics AND Sports Medicine [address] [place] [address] OFFICE VISIT Date of Service: 02/16/18 MR#: [id number] Acct: [id number] Name: SHARON REED Rep #: [id number] : 1945 Provider: Derek Vazquez DO Age/Sex: 72/F Location: [facility] Status: Signed Intake Intake Visit Reasons: LEFT KNEE Is patient in pain?: Yes Allergies codeine Adverse Reaction (Verified 02/16/18 11:37) Nausea latex Adverse Reaction (Verified 02/16/18 11:37) Rash Medications Verapamil HCl 360 mg PO DAILY 07/16/16 [History Confirmed 01/25/18] proMETHazine tablet [Phenergan] 25 mg PO Q4H PRN PRN #10 tab 06/28/17 [Rx Confirmed 01/25/18] diazepam 10 mg tablet See Label Instructions PO .COMPLEX PRN #2 tab 02/13/18 [Rx] PFSH Medical History High cholesterol (Chronic) Hypertension (Chronic) Surgical History H/O arthroscopy of left knee (Inactive) h/o left shoulder arthroscopy (Inactive) Social History Smoking Status: Former smoker HPI LEFT KNEE: Details: SHARON REED is a 72 year old F here today for a followup after her left knee MRI. She states that she continues to have pain which increases with activities. Her pain is over her anterior knee and she has popping when standing. Denies numbness, tingling or other associated symptoms. Her MRI is here for review. ROS Const Reports system reviewed and no additional complaints, except as docu Eyes Reports system reviewed and no additional complaints, except as docu ENT Reports system reviewed and no additional complaints, except as docu Card Reports system reviewed and no additional complaints, except as docu Resp Reports system reviewed and no additional complaints, except as docu GI Reports system reviewed and no additional complaints, except as docu Reports system reviewed and no additional complaints, except as docu Musc Reports joint pain, Reports joint swelling, Reports stiffness Skin/Breast Reports system reviewed and no additional complaints, except as docu Neuro Yes system reviewed and no additional complaints, except as docu Psych Reports system reviewed and no additional complaints, except as docu Endo Reports system reviewed and no additional complaints, except as docu Ortho Exam Right Knee Skin/Wound: Yes CDI Contralateral Normal: Yes Swelling: No Homans Sign: No Knee ROM: Yes ROM-Extension -20 to 0, Yes ROM-Passive Flexion 0-140, Yes ROM-Flexion 0-140, Yes ROM-Passive Extension -10 to 0 Quad Atrophy: No Stability: NML: Anterior Drawer, NML: Erlin, NML: Posterior Drawer, NML: Valgus 0, NML: Valgus 30, NML: Varus 0, NML: Varus 30, NML: Dial 90, NML: Dial 30 Popliteal Adenopathy: No Patella Translation: 1 Apprehension with Lateral Translation: No Patellar Tilt Normal: Yes Patella Grind: No Left Knee Contralateral Normal: Yes Swelling: Yes Homans Sign: No 1+: Effusion Knee ROM: Yes ROM-Flexion 0-140 (0-125) Examination: Yes med jt line tenderness, Yes Lat jt line tenderness, Yes Pain with flexion, Yes Crepitus, Yes Radha's Test, Yes TTP inf pole patella Quad Atrophy: No Stability: NML: Anterior Drawer, NML: Erlin, NML: Posterior Drawer, NML: Valgus 0, NML: Valgus 30, NML: Varus 0, NML: Varus 30, NML: Dial 90, NML: Dial 30 Popliteal Adenopathy: No Patella Translation: 1 Apprehension with Lateral Translation: No Patellar Tilt Normal: Yes Patella Grind: Yes KNEE: General: well developed, well nourished in no acute distress. Head: normocephalic and atraumatic Pulses: pulses normal in all 4 extremities. Neurologic: no focal deficits, cranial nerves II-XII grossly intact with normal sensation, reflexed, coordination, muscle strength and tone. Axillary Nodes: no significant adenopathy. Psych: alert and cooperative, normal mood and affect, normal attention span and concentration. Heart regular with an S1-S2. Lungs clear to auscultation bilaterally. Abdomen is soft nontender nondistended. MRI: Evaluated myself the patient-patient's MRI shows the patient have medial compartment arthrosis with significant changes across the patellofemoral joint a large knee effusion. Due to the varus nature of the knee lateral compartment is relatively preserved. Patient shows cystic formation into the femoral condyle with limited Cartlidge formation. Some mild subchondral edema. 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 Assessment AND Plan Problems 1. Primary osteoarthritis of left knee M17.12 2. Other internal derangements of left knee M23.8X2 Plan Assessment: Right knee osteoarthritis right knee pain internal derangement. Plan: At this point time a recommendation to the patient based on her MRI findings is to proceed with a total knee arthroplasty. Patient has significant chondral changes and subchondral edema and cystic formations across the femoral condyle is not to be treatable based on her age with cartilage mu-ism procedure. I feel that she has cystic formation of the tibial plateau as well consistent with the thinning and/or complete denuding of the bone. Her previous scope really was consistent with those changes. The patellofemoral joint is significantly affected where a unicompartmental arthroplasty will not be warranted. This point time a recommendation is for a total knee arthroplasty the patient agrees and desires to proceed. We discussed inpatient outpatient care versus transitional care unit and postoperative.. Also discussed DVT prophylaxis. Patient understands risks and benefits and desires to proceed. Reviewed the pre-operative plans with the patient. Risks and benefits of the procedure were fully explained, including but not limited to infection, neurovascular injury, continued pain, arthritis, stiffness, need for further surgery, re-injury, DVT, PE, general risks of anesthesia, and loss of limb or life. The patient understands all the risks and does wish to proceed with written consent. Coding Level of Care Code Off vis,est,level 4 Diagnoses Primary osteoarthritis of left knee M17.12 Osteoarthritis type: primary Other internal derangements of left knee M23.8X2 02/20/18 0759 <Electronically signed by Derek Vazquez DO> Date Derek Vazquez DO Cosigner Signature: Date (if applicable) CC: ORTHOPEDIC VISIT Observed: 01/30/2018 Status: F Source: JACQUELINE REPORT 12:56 PM [facility] Orthopaedics AND Sports Medicine [address] [place] [address] OFFICE VISIT Date of Service: 01/25/18 MR#: [id number] Acct: [id number] Name: SHARON REED Rep #: [id number] : 1945 Provider: Derek Vazquez DO Age/Sex: 72/F Location: [facility] Status: Signed Intake Intake Visit Reasons: bilateral knee Is patient in pain?: Yes Pain scale (1-10): 6 Allergies codeine Adverse Reaction (Verified 01/25/18 14:22) Nausea latex Adverse Reaction (Verified 01/25/18 14:22) Rash Medications Verapamil HCl 360 mg PO DAILY 07/16/16 [History Confirmed 01/25/18] ProMETHAzine [Phenergan] 25 mg PO Q4H PRN PRN #10 tab 06/28/17 [Rx Confirmed 01/25/18] PFSH Medical History High cholesterol (Chronic) Hypertension (Chronic) Surgical History H/O arthroscopy of left knee (Inactive) h/o left shoulder arthroscopy (Inactive) Social History Smoking Status: Former smoker HPI bilateral knee : Details: SHARON REED is a 72 year old F here today for bilateral knee pain, left is greater than right. She complains of anterior knee pain, clicking and increased sharp pain with going from sit to stand. She has had one steroid injection but does not like needles and wants to avoid that. She has no recent MRI or PT. Denies numbness, tingling or other associated symptoms. ROS Prem Reports joint pain, Reports abnormal walking, Reports stiffness, Reports as per HPI Neuro Yes abnormal walking Ortho Exam Right Knee Contralateral Normal: No Swelling: Yes Homans Sign: No 1+: Effusion Examination: Yes Med jt line tenderness, Yes Pain with flexion, Yes Crepitus, Yes Pain with extention, Yes TTP inf pole patella, Yes Radha's Test Quad Atrophy: No Stability: NML: Anterior Drawer, NML: Erlin, NML: Posterior Drawer, NML: Valgus 0, NML: Valgus 30, NML: Varus 0, NML: Varus 30, NML: Dial 90, NML: Dial 30 Patella Translation: 1 Apprehension with Lateral Translation: No Patellar Tilt Normal: No Patella Grind: Yes KNEE: Patient is alert and oriented 3 no acute distress. Appropriate eye contact and affect. Otherwise intact from L1-S1 distributions. She has a +1 pulses. The lateral knee shortly be ligamentously stable when she has bilateral medial joint line pain left greater than right and she has bilateral patellofemoral compression pain and crepitus or range of motion. No adenopathy EHL anterior gastrocsoleus peroneals quads hamstrings 5 out of 5. X-rays: He was seen and evaluated-patient shows cystic formation into the lateral femoral condyle tibial plateau and lateral femoral condyle of the left knee. She also shows patellofemoral arthrosis. To the right knee she really shows just patellofemoral arthritis. Medial lateral compartments otherwise relatively preserved. However the joint spaces bilaterally are very well-maintained across the compartments aside from the patellofemoral joint Left Knee Contralateral Normal: No Swelling: Yes Homans Sign: No 1+: Effusion Examination: Yes Crepitus, Yes Pain with flexion, Yes med jt line tenderness, Yes TTP inf pole patella, Yes Radha's Test Quad Atrophy: No Stability: NML: Anterior Drawer, NML: Erlin, NML: Posterior Drawer, NML: Valgus 0, NML: Valgus 30, NML: Varus 0, NML: Varus 30, NML: Dial 90, NML: Dial 30 Popliteal Adenopathy: No Patella Translation: 1 Apprehension with Lateral Translation: No Patellar Tilt Normal: No Patella Grind: Yes Assessment AND Plan Problems 1. Other internal derangements of left knee M23.8X2 2. Primary osteoarthritis of left knee M17.12 Plan Assessment: Bilateral knee pain left greater than right. Left knee internal derangement and probable degenerative arthrosis. Plan: Based on the fact that she has cystic formation in the medial femoral condyle of the knee and the patellofemoral arthrosis the patient ultimately may need a knee arthroplasty. Patient has not done well with injections otherwise consideration. My recommendation at this point time is to evaluate for her medial lateral compartments whether or not a meniscus could be the problem without a scope versus arthroplasty may be warranted. Recommend MRI of the left knee again an open MRI due to some difficulty with apprehension and claustrophobia. Follow-up after MRI completed. I will determine surgical intervention total knee versus knee arthroscopy at that time Coding Level of Care Code Off vis,est,level 3 Diagnoses Other internal derangements of left knee M23.8X2 Primary osteoarthritis of left knee M17.12 Osteoarthritis type: primary 01/30/18 1256 <Electronically signed by Derek Vazquez DO> Date Derek Hamlin Signature: Date (if applicable) CC: ALLERGIES ALLERGIES DATE TYPE / CODE NAME / CODE REACTION SEVERITY SOURCE 10/19/2018 Drug codeine/[id number] Nausea Unknown [facility] Allergy/416 550(RXNORM) Hospital 009687(SNOM Repository ED CT) 10/19/2018 Drug tramadol/D71252 Itching Unknown [facility] Allergy/416 4180(RXNORM) Hospital 993540(SNOM Repository ED CT) 10/19/2018 Drug latex/[id number] Rash Unknown [facility] Allergy/416 1(RXNORM) [facility] 611584(SNOM Repository ED CT) 10/30/2010 DRUG/195676 ADHESIVE UNKNOWN [facility] 003(SNOMED TAPE-SILICONES Main [facility] CT) Repository 11/18/2005 DRUG CODEINE HIVES [facility] INGREDI/419 [facility] 149803(SNOM Repository ED CT) 11/18/2005 [facility] 636296(SNOM Repository ED CT) ENCOUNTERS ENCOUNTERS ADMIT/DISCHARGE ACCOUNT ADMITTING ENCOUNTER LOCATION SOURCE NUMBER CLASS 10/31/2018 [id number] Ambulatory General acute hospital ing:LABSPEC Repository 10/19/2018/10/19/20 [id number] Ambulatory BMSBuilding:[place] [address] [place] Repository 10/03/2018/10/03/20 [id number] Ambulatory [address] Hospital ing:OT Repository 09/21/2018 [id number] Ambulatory General acute hospital ing:OPBI Repository 09/07/2018/09/07/20 [id number] Ambulatory BMSBuilding:B [place] 18 [place] Repository 08/01/2018 [id number] Ambulatory BMSBuilding:B [place] MS.[facility] Repository 07/28/2018/07/28/20 [id number] Ambulatory BMSBuilding:B [place] 18 MS.[facility] Repository 07/27/2018/07/27/20 [id number] Ambulatory BMSBuilding:B [place] 18 MS.[facility] Repository 07/14/2018 [id number] Ambulatory BMSBuilding:B [place] MS.CF.[facility] Repository 07/14/2018/07/14/20 [id number] [facility] [address] [facility] ing:SDC Repository 07/06/2018/07/06/20 [id number] Ambulatory BMSBuilding:B [place] 18 [place] Repository 07/03/2018 [id number] Ambulatory [facility] Hospital ing:MFPLAB Repository 06/21/2018 [id number] Ambulatory [facility] Hospital ing:LABSPEC Repository 05/15/2018/05/15/20 [id number] Ambulatory BMSBuilding:B [place] 18 [place] Repository 05/11/2018/05/11/20 [id number] [address] ing:PT Repository 05/02/2018/05/02/20 [id number] Ambulatory BMSBuilding:B [place] 18 [place].[facility] Repository 04/18/2018/04/18/20 [id number] Ambulatory BMSBuilding:B [place] 18 [facility] Repository 04/07/2018/04/11/20 [id number] Ambulatory [address] Repository 04/05/2018 [id number] [facility] Repository 04/05/2018/04/05/20 [id number] Ambulatory BMSBuilding:[facility] [place] 18 [place].[facility] Repository 03/09/2018 [id number] Mike, Ambulatory BMSBuilding:Farzana Tillman. MS.[facility] Repository 03/09/2018 [id number] Mike, Ambulatory BMSBuilding:B [place] Mendoza S. MS.[facility] Repository 03/09/2018 [id number] Mike, Ambulatory BMSBuilding:B [place] Mendoza S. MS.[facility] to [facility] Repository 03/09/2018 [id number] Mike, Ambulatory BMSBuilding:B [place] Mendzoa S. MS.[facility]ending [facility] to [facility] Repository 03/09/2018 [id number] Mike, Ambulatory BMSBuilding:Farzana Mendoza S. MS.[facility] to [facility] Repository 03/09/2018 [id number] Mike, Ambulatory BMSBuilding:B [place] Mendoza S. MS.[facility]ending [facility] to [facility] Repository 03/09/2018 [id number] Mike, Ambulatory BMSBuilding:Farzana Mendoza S. MS.[facility] to [facility] Repository 03/09/2018/03/22/20 [id number] Mike, Inpatient [place] 18 Reji S. Encounter [facility] ing:RURoom: Repository BM104Pho: 1 03/07/2018 [id number] Derek Vazquez Ambulatory BMSBuilding:B [place] MS.CF.[facility] Repository 03/07/2018 [id number] Derek Vazquez Ambulatory BMSBuilding:B [place] MS.CF.[facility] Repository 03/07/2018/03/09/20 [id number] Derek Vazquez Inpatient [place] 18 Encounter [facility] ing:CC0Gzpv: Repository TI652Svd: 1 02/28/2018 [id number] Ambulatory General acute hospital ing:HPRAD Repository 02/28/2018 [id number] Ambulatory BMSBuilding:W [place] [facility] Repository 02/28/2018/02/29/20 [id number] Ambulatory BMSBuilding:[facility] [place] 18 [place].[facility] Repository 02/16/2018/02/17/20 [id number] Ambulatory BMSBuilding:B [place] 18 MS.[facility] Repository 01/25/2018/01/26/20 [id number] Ambulatory BMSBuilding:[facility] [place] 18 [facility] Repository PAYERS PAYERS ENCOUNTER GUARANTOR PAYER SUBSCRIBER SOURCE 10/31/2018 SHARON Dc Primary SHARON Phillips [id number] [place] Insurance:MEDICARE EVANSDOB: [place] PART A [facility] [id number] Hospital 16667Cfm: (440) Number: Repository [phone] () [id number] Date:2018-10-31 10/31/2018 Secondary SHARON G [place] Insurance:CIGNAPolicy EVANSDOB: Community Number: [id number] Hospital [id number] Repository Date:4456-29-98Q[address], [place] [address]OF: 10/31/2018 Tertiary SHARON G [place] Insurance:MEDICAIDPol EVANSDOB: Community icy Number: [id number] Hospital [id number] Repository Date:2018-10-31 10/31/2018 Tertiary NOT GIVENUNK [place] Insurance:SELF PAY [facility] Number: Effective Repository Date:2018-10-31 10/19/2018 SHARON G Primary SHARON G [place] [id number] [place] Insurance:MEDICARE EVANSDOB: [facility] [place] [place] PART A [facility] [id number] Hospital 01834Vxz: (440) Number: Repository [phone] () [id number] Date:2018-09-07 10/19/2018 Secondary SHARON G [place] Insurance:CIGNAPolicy EVANSDOB: Community Number: [id number] Hospital [id number] Repository Date:4193-20-35ED [address]JVNMNWRWBFL, [place] [address]WZ: 10/19/2018 Tertiary SHARON G [place] Insurance:MEDICAIDPol EVANSDOB: Community icy Number: [id number] Hospital [id number] Repository Date:2018-09-07 10/19/2018 Tertiary NOT GIVENUNK [place] Insurance:SELF PAY [facility] Number: Effective Repository Date:2018-10-19 10/03/2018 SHARON G Primary SHARON G [place] [id number] [place] Insurance:MEDICARE EVANSDOB: [place] PART A [facility] [id number] Hospital 19428Azh: (440) Number: Repository [phone] () [id number] Date:2008-07-15 10/03/2018 Secondary SHARON G [place] Insurance:CIGNAPolicy EVANSDOB: Community Number: [id number] Hospital [id number] Repository Date:6717-44-78PM [address]FNZZZTDMGBT, [place] [address]WQ: 10/03/2018 Tertiary SHARON G [place] Insurance:MEDICAIDPol EVANSDOB: Community icy Number: [id number] Hospital [id number] Repository Date:2018-07-15 10/03/2018 Tertiary NOT GIVENUNK [place] Insurance:SELF PAY [facility] Number: Effective Repository Date:2018-07-27 09/21/2018 SHARON G Primary SHARON G [place] [id number] [place] Insurance:MEDICARE EVANSDOB: [facility] [place] [place] PART A [facility] [id number] Hospital 13339Vat: (440) Number: Repository [phone] () [id number] Date:2018-08-22 09/21/2018 Secondary SHARON G [place] Insurance:CIGNAPolicy EVANSDOB: Community Number: [id number] Hospital [id number] Repository Date:8122-88-09UL [address]ZTVVRLPZRBN, [place] [address]MV: 09/21/2018 Tertiary SHARON G [place] Insurance:MEDICAIDPol EVANSDOB: Community icy Number: [id number] Hospital [id number] Repository Date:2018-08-22 09/21/2018 Tertiary NOT GIVENUNK [place] Insurance:SELF PAY [facility] Number: Effective Repository Date:2018-08-22 09/07/2018 SHARON G Primary SHARON G [place] [id number] [place] Insurance:MEDICARE EVANSDOB: [facility] [place] [place] PART A [facility] [id number] Hospital 832[address]Sbg: (519) Number: Repository [phone] () [id number] Date:2018-07-27 09/07/2018 Secondary SHARON G [place] Insurance:CIGNAPolicy EVANSDOB: Community Number: [id number] Hospital [id number] Repository Date:3226-33-31[address]QLICI[place]F, [place] [address]NS: 09/07/2018 Tertiary SHARON G [place] Insurance:MEDICAIDPol EVANSDOB: Community icy Number: [id number] Hospital [id number] Repository Date:2018-07-27 09/07/2018 Tertiary NOT GIVENUNK [place] Insurance:SELF PAY [facility] Number: Effective Repository Date:2018-09-07 08/01/2018 SHARON G Primary SHARON G [place] [id number] [place] Insurance:MEDICARE EVANSDOB: [facility] [place] [facility] [id number] Hospital 689[address]Qle: (440) Number: Repository [phone] () [id number] Date:2018-06-15 08/01/2018 Secondary SHARON G [place] Insurance:CIGNAPolicy EVANSDOB: Community Number: [id number] Hospital [id number] Repository Date:4676-04-64RD [address]QNWBQTCBZME, [place] [address]ET: 08/01/2018 Tertiary SHARON G [place] Insurance:MEDICAIDPol EVANSDOB: Community icy Number: [id number] Hospital [id number] Repository Date:2018-06-15 08/01/2018 Tertiary NOT GIVENUNK [place] Insurance:SELF PAY [facility] Number: Effective Repository Date:2018-06-15 07/28/2018 SHARON G Primary SHARON G [place] [id number] [place] Insurance:MEDICARE EVANSDOB: [facility] [place] [place] PART A [facility] [id number] Hospital 916[address]Rfe: (440) Number: Repository [phone] () [id number] Date:2018-07-28 07/28/2018 Secondary SHARON G [place] Insurance:CIGNAPolicy EVANSDOB: Community Number: [id number] Hospital [id number] Repository Date:0326-08-09OQ [address]PBYHPRXCDMM, [place] [address]FT: 07/28/2018 Tertiary SHARON G [place] Insurance:MEDICAIDPol EVANSDOB: Community icy Number: [id number] Hospital [id number] Repository Date:2018-07-28 07/28/2018 Tertiary NOT GIVENUNK [place] Insurance:SELF PAY [facility] Number: Effective Repository Date:2018-07-28 07/27/2018 SHARON G Primary SHARON G [place] [id number] [place] Insurance:MEDICARE EVANSDOB: Community [facility] PART A olic [id number] Hospital [address]Hay: (344) Number: Repository [phone] () [id number] Date:2018-07-18 07/27/2018 Secondary SHARON G [place] Insurance:CIGNAPolicy EVANSDOB: Community Number: [id number] Hospital [id number] Repository Date:6051-92-13XL [address]OSZTOPAZPRC, [place] [address]PZ: 07/27/2018 Tertiary SHARON G [place] Insurance:MEDICAIDPol EVANSDOB: [facility] icy Number: [id number] Hospital [id number] Repository Date:2018-07-18 07/27/2018 Tertiary NOT GIVENUNK [place] Insurance:SELF PAY [facility] Number: Effective Repository Date:2018-07-27 07/14/2018 SHARON G Primary SHARON G [place] [id number] [place] Insurance:MEDICARE EVANSDOB: [facility] [place] [place] PART A olic [id number] Hospital 630[address]Xrt: (907) Number: Repository [phone] () [id number] Date:2018-07-10 07/14/2018 Secondary SHARON G [place] Insurance:CIGNAPolicy EVANSDOB: Community Number: [id number] Hospital [id number] Repository Date:4916-45-19LH [address]LXQNGV[address]GS [place] [address]RY: 07/14/2018 Tertiary SHARON G [place] Insurance:MEDICAIDPol EVANSDOB: Community icy Number: [id number] Hospital [id number] Repository Date:2018-07-10 07/14/2018 Tertiary NOT GIVENUNK [place] Insurance:SELF PAY [facility] Number: Effective Repository Date:2018-07-14 07/14/2018 SHARON G Primary SHARON G [place] [id number] [place] Insurance:MEDICARE EVANSDOB: [place] PART A [facility] [id number] Hospital 87[address]Qrx: (440) Number: Repository [phone] () [id number] Date:2018-07-10 07/14/2018 Secondary SHARON G [place] Insurance:CIGNAPolicy EVANSDOB: Community Number: [id number] Hospital [id number] Repository Date:8441-91-34LJ [address]JALQUQKBAJR, [place] [address]JM: 07/14/2018 Tertiary SHARON G [place] Insurance:MEDICAIDPol EVANSDOB: [facility] icy Number: [id number] Hospital [id number] Repository Date:2018-07-10 07/14/2018 Tertiary NOT GIVENUNK [place] Insurance:SELF PAY [facility] Number: Effective Repository Date:2018-07-10 07/06/2018 SHARON G Primary SHARON G [place] [id number] [place] Insurance:MEDICARE EVANSDOB: [place] PART A [facility] [id number] Hospital [address]Iih: (440) Number: Repository [phone] () [id number] Date:2018-07-04 07/06/2018 Secondary SHARON G [place] Insurance:CIGNAPolicy EVANSDOB: Community Number: [id number] Hospital [id number] Repository Date:4396-31-90VS [address]XSQVDNBSJJE, [place] [address]DG: 07/06/2018 Tertiary SHARON G [place] Insurance:MEDICAIDPol EVANSDOB: Community icy Number: [id number] Hospital [id number] Repository Date:2018-07-04 07/06/2018 Tertiary NOT GIVENUNK [place] Insurance:SELF PAY [facility] Number: Effective Repository Date:2018-07-06 07/03/2018 SHARON G Primary SHARON G [place] [id number] [place] Insurance:MEDICARE EVANSDOB: Community [place] PART A [facility] [id number] Hospital 135[address]Wju: (440) Number: Repository [phone] () [id number] Date:2018-07-03 07/03/2018 Secondary SHARON G [place] Insurance:CIGNAPolicy EVANSDOB: Community Number: [id number] Hospital [id number] Repository Date:0418-61-49KR [address]WPWFKHPEPFN, [place] [address]VG: 07/03/2018 Tertiary SHARON G [place] Insurance:MEDICAIDPol EVANSDOB: Community icy Number: [id number] Hospital [id number] Repository Date:2018-07-03 07/03/2018 Tertiary NOT GIVENUNK [place] Insurance:SELF PAY [facility] Number: Effective Repository Date:2018-07-03 06/21/2018 SHARON G Primary SHARON G [place] [id number] [place] Insurance:MEDICARE EVANSDOB: [place] PART A [facility] [id number] Hospital 912[address]Fsw: (440) Number: Repository [phone] () [id number] Date:2018-06-21 06/21/2018 Secondary SHARON G [place] Insurance:CIGNAPolicy EVANSDOB: Community Number: [id number] Hospital [id number] Repository Date:3636-24-64AT [address]PYJGZVKAUCF, [place] [address]OK: 06/21/2018 Tertiary SHARON G [place] Insurance:MEDICAIDPol EVANSDOB: Community icy Number: [id number] Hospital [id number] Repository Date:2018-06-21 06/21/2018 Tertiary NOT GIVENUNK [place] Insurance:SELF PAY [facility] Effective Repository Date:2018-06-21 05/15/2018 SHARON G Primary SHARON G [place] [id number] [place] Insurance:MEDICARE EVANSDOB: [place] PART A [facility] [id number] Hospital 26047Qix: (440) Number: Repository [phone] () [id number] Date:2018-04-05 05/15/2018 Secondary SHARON G [place] Insurance:CIGNAPolicy EVANSDOB: Community Number: [id number] Hospital [id number] Repository Date:6044-88-60IY [address]ZTQIVUGTBGX, [place] [address]LW: 05/15/2018 Tertiary SHARON G [place] Insurance:MEDICAIDPol EVANSDOB: [facility] icy Number: [id number] Hospital [id number] Repository Date:2018-04-05 05/15/2018 Tertiary NOT GIVENUNK [place] Insurance:SELF PAY [facility] Number: Effective Repository Date:2018-05-15 05/11/2018 SHARON G Primary SHARON G [place] [id number] [place] Insurance:MEDICARE EVANSDOB: [place] PART A [facility] [id number] Hospital 089[address]Vhs: (440) Number: Repository [phone] () [id number] Date:2008-07-15 05/11/2018 Secondary SHARON G [place] Insurance:CIGNAPolicy EVANSDOB: Community Number: [id number] Hospital [id number] Repository Date:7960-21-71ZU [address]UUBPRAZFGDI, [place] [address]VC: 05/11/2018 Tertiary SHARON G [place] Insurance:MEDICAIDPol EVANSDOB: Community ic Number: [id number] Hospital [id number] Repository Date:2018-03-14 05/11/2018 Tertiary NOT GIVENUNK [place] Insurance:SELF PAY [facility] Number: Effective Repository Date:2018-03-23 05/02/2018 SHARON G Primary SHARON G [place] [id number] [place] Insurance:MEDICARE EVANSDOB: [place] PART A [facility] [id number] Hospital 628[address]Hux: (440) Number: Repository [phone] () [id number] Date:2018-04-26 05/02/2018 Secondary SHARON G [place] Insurance:CIGNAPolicy EVANSDOB: Community Number: [id number] Hospital [id number] Repository Date:9507-24-54HZ [address]OSAQCTEEFDR, [place] [address]NR: 05/02/2018 Tertiary SHARON G [place] Insurance:MEDICAIDPol EVANSDOB: [facility] icy Number: [id number] Hospital [id number] Repository Date:2018-04-26 05/02/2018 Tertiary NOT GIVENUNK [place] Insurance:SELF PAY [facility] Number: Effective Repository Date:2018-05-02 04/18/2018 SHARON G Primary SHARON G [place] [id number] [place] Insurance:MEDICARE EVANSDOB: [place] PART A [facility] [id number] Hospital 810[address]Bap: 440) Number: Repository [phone] () [id number] Date:2018-04-05 04/18/2018 Secondary SHARON G [place] Insurance:CIGNAPolicy EVANSDOB: Community Number: [id number] Hospital [id number] Repository Date:0151-65-87YV [address] 378938CBQELLAXDSU, [place] [address]FC: 04/18/2018 Tertiary SHARON G Beaumont Insurance:MEDICAIDPol EVANSDOB: [facility] icy Number: [id number] Hospital [id number] Repository Date:2018-04-05 04/18/2018 Tertiary NOT GIVENUNK Jacqueline Insurance:SELF PAY [facility] Number: Effective Repository Date:2018-04-05 04/05/2018 LORI N Primary SHARON G Beaumont [id number] shorb Insurance:MEDICARE EVANSDOB: [place] PART A [facility] [id number] Hospital 564[address]Xso: (330) Number: Repository [phone] () [id number] Date:2018-04-05 04/05/2018 Secondary SHARON G Beaumont Insurance:CIGNAPolicy EVANSDOB: Community Number: [id number] Hospital [id number] Repository Date:0848-85-56PP [address]ZOWXDPTLISN, [place] [address]QZ: 04/05/2018 Tertiary SHARON G Jacqueline Insurance:MEDICAIDPol EVANSDOB: Community icy Number: [id number] Hospital [id number] Repository Date:2018-04-05 04/05/2018 Tertiary NOT GIVENUNK [place] Insurance:SELF PAY [facility] Number: Effective Repository Date:2018-04-05 04/05/2018 LORI N Primary SHARON G Jacqueline [id number] shorb Insurance:MEDICARE EVANSDOB: [place] PART A [facility] [id number] Hospital 24867Qyw: (330) Number: Repository [phone] () [id number] Date:2018-03-21 04/05/2018 Secondary SHARON G Jacqueline Insurance:CIGNAPolicy EVANSDOB: Community Number: [id number] Hospital [id number] Repository Date:8978-42-05[address]EGKDFMSUGSR, [place] [address]KY: 04/05/2018 Tertiary SHARON G Jacqueline Insurance:MEDICAIDPol EVANSDOB: Community icy Number: [id number] Hospital [id number] Repository Date:2018-03-21 04/05/2018 Tertiary NOT GIVENUNK [place] Insurance:SELF PAY [facility] Number: Effective Repository Date:2018-04-05 03/09/2018 LORI N Primary LORI N Jacqueline [id number] shorb Insurance:MEDICARE EVANSDOB: [place] PART A [facility] [id number] Hospital 705[address]Ptx: (330) Number: Repository [phone] () [id number] Date:2018-03-09 03/09/2018 Secondary LORI N [place]um[place] Insurance:CIGNAPolicy EVANSDOB: Community Number: [id number] Hospital [id number] Repository Date:3953-42-29PC [address]WVZVJSQ[address], [place] [address]QI: 03/09/2018 Tertiary LORI N Beaumont Insurance:MEDICAIDPol EVANSDOB: Community icy Number: [id number] Hospital [id number] Repository Date:2018-03-09 03/09/2018 Tertiary NOT GIVENUNK Beaum[place] Insurance:SELF PAY [facility] Number: Effective Repository Date:2018-03-09 03/09/2018 SHARON G Primary SHARON G Beaumont [id number] [place]AUN[place] Insurance:MEDICARE [facility]ANSDOB[facility] [place] [facility] [id number] Hospital [address]Xyc: (440) Number: Repository [phone] () [id number] Date:2018-03-09 03/09/2018 Secondary SHARON G Jacqueline Insurance:CIGNAPolicy EVANSDOB: Community Number: [id number] Hospital [id number] Repository Date:1939-56-19JH [address]PYURVMHXLGV, [place] [address]IP: 03/09/2018 Tertiary SHARON G Jacqueline Insurance:MEDICAIDPol EVANSDOB: [facility] icy Number: [id number] Hospital [id number] Repository Date:2018-03-09 03/09/2018 Tertiary NOT GIVENUNK Jacqueline Insurance:SELF PAY [facility] Number: Effective Repository Date:2018-03-09 03/09/2018 SHARON G Primary SHARON G Beaumont [id number] [place] Insurance:MEDICARE [facility]ANSDOB[facility] [facility] [id number] Hospital 135[address]Tro: (440) Number: Repository [phone] () [id number] Date:2018-03-09 03/09/2018 Secondary SHARON G Jacqueline Insurance:CIGNAPolicy EVANSDOB: Community Number: [id number] Hospital [id number] Repository Date:8641-67-91CF [address]OHIIQQDAZ, [place] [address]II: 03/09/2018 Tertiary SHARON G Jacquelnie Insurance:MEDICAIDPol EVANSDOB: Community icy Number: [id number] Hospital [id number] Repository Date:2018-03-09 03/09/2018 Tertiary NOT GIVENUNK [place]um[place] Insurance:SELF PAY [facility] Effective Repository Date:2018-03-09 03/09/2018 SHARON G Primary SHARON G Beaumont [id number] [place] Insurance:MEDICARE EVANSDOB: [place] olic [id number] Hospital [address]Ktm: (894) Number: Repository [phone] () [id number] Date:2018-03-09 03/09/2018 Secondary SHARON G Beaumont Insurance:CIGNAPolicy EVANSDOB: Community Number: [id number] Hospital [id number] Repository Date:9261-70-59VD [address]LDJMMXNZTSM, [place] [address]OP: 03/09/2018 Tertiary SHARON G Jacqueline Insurance:MEDICAIDPol EVANSDOB: [facility] icy Number: [id number] Hospital [id number] Repository Date:2018-03-09 03/09/2018 Tertiary NOT GIVENUNK Jacqueline Insurance:SELF PAY [facility] Number: Effective Repository Date:2018-03-09 03/09/2018 SHARON G Primary SHARON G Beaumont [id number] [place] Insurance:MEDICARE EVANSDOB: Community [facility] [facility] [id number] Hospital 245[address]Haj: (574) Number: Repository [phone] () [id number] Date:2018-03-09 03/09/2018 Secondary SHARON G Jacqueline Insurance:CIGNAPolicy EVANSDOB: Community Number: [id number] Hospital [id number] Repository Date:1614-08-37MB [address]GYLVWSNYEIA, [place] [address]CH: 03/09/2018 Tertiary SHARON G Beaumont Insurance:MEDICAIDPol EVANSDOB: [facility] icy Number: [id number] Hospital [id number] Repository Date:2018-03-09 03/09/2018 Tertiary NOT GIVENUNK Jacqueline Insurance:SELF PAY [facility] Number: Effective Repository Date:2018-03-09 03/09/2018 SHARON G Primary SHARON G Jacqueline [id number] [place] Insurance:MEDICARE EVANSDOB: [place] PART A [facility] [id number] Hospital 39[address]Dxg: (440) Number: Repository [phone] () [id number] Date:2018-03-09 03/09/2018 Secondary SHARON G Beaumont Insurance:CIGNAPolicy EVANSDOB: Community Number: [id number] Hospital [id number] Repository Date:5078-21-94BG [address]NCQSHFWUQAC, [place] [address]MA: 03/09/2018 Tertiary SHARON G Jacqueline Insurance:MEDICAIDPol EVANSDOB: [facility] icy Number: [id number] Hospital [id number] Repository Date:2018-03-09 03/09/2018 Tertiary NOT GIVENUNK Jacqueline Insurance:SELF PAY [facility] Number: Effective Repository Date:2018-03-09 03/09/2018 SHARON G Primary SHARON G Jacqueline [id number] [place] Insurance:MEDICARE EVANSDOB: [place] [facility] [id number] Hospital 65[address]Ukf: (440) Number: Repository [phone] () [id number] Date:2018-03-09 03/09/2018 Secondary SHARON G Beaumont Insurance:CIGNAPolicy EVANSDOB: Community Number: [id number] Hospital [id number] Repository Date:5293-44-74FR [address]HSLZBTOVAPH, [place] [address]RK: 03/09/2018 Tertiary SHARON G Beaumont Insurance:MEDICAIDPol EVANSDOB: Community icy Number: [id number] Hospital [id number] Repository Date:2018-03-09 03/09/2018 Tertiary NOT GIVENUNK Jacqueline Insurance:SELF PAY [facility]: Effective Repository Date:2018-03-09 03/09/2018 LORI N Primary LORI N Jacqueline [id number] shorb Insurance:MEDICARE EVANSDOB: Community [place] PART A [facility] [id number] Hospital 38[address]Rxv: (330) Number: Repository [phone] () [id number] Date:2018-03-09 03/09/2018 Secondary LORI N Jacqueline Insurance:CIGNAPolicy EVANSDOB: Community Number: [id number] Hospital [id number] Repository Date:0282-42-93AT [address]GJFALZIYTGG, [place] [address]HY: 03/09/2018 Tertiary LORI N Jacqueline Insurance:MEDICAIDPol EVANSDOB: Community icy Number: [id number] Hospital [id number] Repository Date:2018-03-09 03/09/2018 Tertiary NOT GIVENUNK Jacqueline Insurance:SELF PAY [facility] Number: Effective Repository Date:2018-03-09 03/07/2018 LORI N Primary SHARON G Jacqueline [id number] shorb Insurance:MEDICARE EVANSDOB: [place] [facility] [id number] Hospital [address]Oga: (330) Number: Repository [phone] () [id number] Date:2018-03-09 03/07/2018 Secondary SHARON G Jacqeuline Insurance:CIGNAPolicy EVANSDOB: Community Number: [id number] Hospital [id number] Repository Date:7958-16-43PL [address]PARZTMUVAQT, [place] [address]MU: 03/07/2018 Tertiary SHARON G Jacqueline Insurance:MEDICAIDPol EVANSDOB: Community icy Number: [id number] Hospital [id number] Repository Date:2018-03-09 03/07/2018 Tertiary NOT GIVENUNK Jacqueline Insurance:SELF PAY [facility] Number: Effective Repository Date:2018-03-07 03/07/2018 LORI N Primary SHARON G Jacqueline [id number] shorb Insurance:MEDICARE EVANSDOB: Community [place] [facility] [id number] Hospital [address]Wwo: (330) Number: Repository [phone] () [id number] Date:2018-03-09 03/07/2018 Secondary SHARON G Jacqueline Insurance:CIGNAPolicy EVANSDOB: Community Number: [id number] Hospital [id number] Repository Date:0566-39-43UE [address]MFEHCQPMAGB, [place] [address]VY: 03/07/2018 Tertiary SHARON G Jacqueline Insurance:MEDICAIDPol EVANSDOB: [facility] icy Number: [id number] Hospital [id number] Repository Date:2018-03-09 03/07/2018 Tertiary NOT GIVENUNK [place] Insurance:SELF PAY [facility] Number: Effective Repository Date:2018-03-07 03/07/2018 Sharon G Primary Sharon G Jacqueline [id number] [place] Insurance:MEDICARE EvansDOB: [place] [facility] [id number] Hospital 377[address]Tfw: (440) Number: Repository [phone] () [id number] Date:2018-02-17 03/07/2018 Secondary Hsaron G Beaumont Insurance:CIGNAPolicy EvansDOB: Community Number: [id number] Hospital [id number] Repository Date:2335-73-87[address]MPXLSEDGITF, [place] [address]JP: 03/07/2018 Tertiary Sharon G Beaumont Insurance:MEDICAIDPol EvansDOB: Community icy Number: [id number] Hospital [id number] Repository Date:2018-02-17 03/07/2018 Tertiary NOT GIVENUNK Beaumont Insurance:SELF PAY [facility] Number: Effective Repository Date:2018-02-17 02/28/2018 Sharon G Primary Sharon G Beaumont [id number] [place] Insurance:MEDICARE EvansDOB: [place] [facility] [id number] Hospital [address]Sla: (440) Number: Repository [phone] () [id number] Date:2018-02-28 02/28/2018 Secondary Sharon G Beaumont Insurance:CIGNAPolicy EvansDOB: Community Number: [id number] Hospital [id number] Repository Date:9153-46-56DW [address]JDBAZAFXHIO, [place] [address]EE: 02/28/2018 Tertiary Sharon G Jacqueline Insurance:MEDICAIDPol EvansDOB: [facility] icy Number: [id number] Hospital [id number] Repository Date:2018-02-28 02/28/2018 Tertiary NOT GIVENUNK Beaum[place] Insurance:SELF PAY [facility] Number: Effective Repository Date:2018-02-28 02/28/2018 LORI N Primary SHARON G Beaumont [id number] shorb Insurance:MEDICARE EVANSDOB: [place] [facility] [id number] Hospital 237[address]Kxa: (330) Number: Repository [phone] () [id number] Date:2018-03-09 02/28/2018 Secondary SHARON G Jacqueline Insurance:CIGNAPolicy EVANSDOB: Community Number: [id number] Hospital [id number] Repository Date:3353-53-19WZ [address]YCGVZGVLENR, [place] [address]WY: 02/28/2018 Tertiary SHARON G Jacqueline Insurance:MEDICAIDPol EVANSDOB: [facility] icy Number: [id number] Hospital [id number] Repository Date:2018-03-09 02/28/2018 Tertiary NOT GIVENUNK Beaumont Insurance:SELF PAY [facility] Number: Effective Repository Date:2018-02-28 02/28/2018 LORI N Primary SHARON G Jacqueline [id number] shorb Insurance:MEDICARE EVANSDOB: [place] [facility] [id number] Hospital 537[address]Trn: (330) Number: Repository [phone] () [id number] Date:2018-03-09 02/28/2018 Secondary SHARON G Jacqueline Insurance:CIGNAPolicy EVANSDOB: Community Number: [id number] Hospital [id number] Repository Date:2371-77-95CD [address]MMCDZTLJCLR, [place] [address]GS: 02/28/2018 Tertiary SHARON G Beaumont Insurance:MEDICAIDPol EVANSDOB: Community icy Number: [id number] Hospital [id number] Repository Date:2018-03-09 02/28/2018 Tertiary NOT GIVENUNK [place] Insurance:SELF PAY [facility] Number: Effective Repository Date:2018-02-28 02/16/2018 LORI N Primary SHARON G Beaumont [id number] shorb Insurance:MEDICARE EVANSDOB: [place] [facility] [id number] Hospital 26[address]Dxd: (330) Number: Repository [phone] () [id number] Date:2018-03-09 02/16/2018 Secondary HSARON G Beaumont Insurance:CIGNAPolicy EVANSDOB: Community Number: [id number] Hospital [id number] Repository Date:8153-79-67XW [address]NVPPCGNYFZX, [place] [address]PV: 02/16/2018 Tertiary SHARON G Jacuqeline Insurance:MEDICAIDPol EVANSDOB: Community icy Number: [id number] Hospital [id number] Repository Date:2018-03-09 02/16/2018 Tertiary NOT GIVENUNK Jacquleine Insurance:SELF PAY [facility] Number: Effective Repository Date:2018-02-16 01/25/2018 LORI N Primary SHARON G Jacqueline [id number] shorb Insurance:MEDICARE EVANSDOB: [place] [facility] [id number] Hospital 26186Xxe: (330) Number: Repository [phone] () [id number] Date:2018-03-09 01/25/2018 Secondary SHARON G Beaumont Insurance:CIGNAPolicy THORPB: [facility] Number: [id number] Hospital [id number] Repository Date:8894-77-74LE [address]GPQUHZEXBAA, [place] [address]XP: 01/25/2018 Tertiary SHARON Phillips Insurance:MEDICAIDPol EVANSDOB: [facility] Number: [id number] Hospital [id number] Repository Date:2018-03-09 01/25/2018 Tertiary NOT GIVENUNK Beaumont Insurance:SELF PAY [facility] Number: Effective Repository Date:2018-01-23
== END ==
PROVIDERS: Family Provider Family Medicine; PCP Family Medicine; Referring Provider Internal Medicine Gastroenterology; Visit Provider Internal Medicine Gastroenterology
DX: K21.9 Gastro-esophageal reflux disease without esophagitis (principal)
CPT/HCPCS: 88305; 88342

== ENCOUNTER → 2018-12-12 15:43 | Outpatient (CLI) | payer MEDICARE, OTHER, MEDICAID, SELFPAY | PROVIDERS: Family Provider Family Medicine; PCP Family Medicine; Referring Provider Otolaryngology Otolaryngology/Facial Plastic Surgery; Visit Provider Otolaryngology Otolaryngology/Facial Plastic Surgery | DX: J02.9 Acute pharyngitis, unspecified (principal); J40 Bronchitis, not specified as acute or chronic | CPT/HCPCS: 87070 ==

== ENCOUNTER → 2018-12-18 13:43 | Outpatient (CLI) | payer MEDICARE, OTHER, MEDICAID, SELFPAY ==
--- NOTE | 2018-12-18 13:47 | RAD_ITS ---
STUDY: X-RAY - LEFT KNEE REASON FOR EXAM: Female, 73 years old. Postop 9 months. TECHNIQUE: 4 view(s) of the knee. COMPARISON: 04/05/2018. FINDINGS: Normal visualized distal femur. Normal visualized proximal tibia and fibula. Normal proximal tibiofibular articulation. There is no demonstrated fracture. Normal appearance of a total knee arthroplasty. No evidence for complication. No evidence for loosening. Normal alignment. Normal position of the patella. Mild anterior soft tissue swelling. RAD/Knee 4 or More Views IMPRESSION: Satisfactory appearance of the total knee arthroplasty. Electronically Signed: Lalito Yeboah MD at 22:00 EST , Service support ,
== END ==
PROVIDERS: Family Provider Family Medicine; PCP Family Medicine; Referring Provider Orthopaedic Surgery; Visit Provider Orthopaedic Surgery
DX: M25.562 Pain in left knee (principal)
CPT/HCPCS: 73564

== ENCOUNTER → 2019-03-09 | Outpatient (CLI) | payer MEDICARE, OTHER, MEDICAID, SELFPAY ==
[2019-03-09 17:54] LABS: Absolute Neutrophil Count 2.8 X10^3/uL (2.0-7.7); Basophil# 0.02 X10^3/uL; Basophil% 0.3 % (0-1); Eosinophil# 0.08 X10^3/uL; Eosinophils% 1.4 % (0-5); Hematocrit 37.4 % (37-47); Hemoglobin 11.8 g/dl (12.0-15.0); Lymphocyte % 38.2 % (19-41); Mean Corp Hgb Conc 31.6 g/gl (32-36); Mean Corpuscular Hgb 28.6 pg (27.0-32.0); Mean Corpuscular Volume 90.6 fL (81-99); Monocyte# 0.65 X10^3/uL; Monocyte% 11.3 % (0-10); Neutrophil # 2.81 X10^3/uL (2.7-7.7); Neutrophil % 48.8 % (47-70); Platelet Count 301 K/mm3 (150-450); RBC Distribution Width CV 14.8 % (11.6-14.6); RBC Distribution Width SD 48.3 fl (35.1-43.9); Red Blood Count 4.13 M/mm3 (4.2-5.4); White Blood Count 5.8 K/mm3 (4.4-11.0)
[2019-03-09 18:04] LABS: POSITIVE COUNT NO; POSITIVE DIFFERENTIAL NO; POSITIVE MORPHOLOGY NO
[2019-03-09 18:19] LABS: Erythrocyte Sedimentation Rate 41 mm/hr (0-30)
[2019-03-09 18:35] LABS: Anion Gap 7 (5-15); BUN 23 mg/dL (7-18); BUN/Creat Ratio 15.8 RATIO (10-20); Calcium,Total 8.8 mg/dL (8.5-10.1); Chloride 112 mmol/L (98-107); Creatinine, Serum 1.46 mg/dL (0.55-1.02); EST Glomerular Filtration Rate 37 mL/min (>60); Est Glom Filt Rate - Afr Amer 45 mL/min (>60); Ferritin 13 ng/mL (8-252); Glucose 99 mg/dL (74-106); Potassium 3.9 mmol/L (3.5-5.1); Sodium Level 145 mmol/L (136-145); Thyroid Stim Hormone (TSH) 2.91 uIU/mL (0.358-3.74)
== END | disposition home or self-care (01) ==
LOC: MTLAB 16:59
PROVIDERS: Family Provider Family Medicine; PCP Family Medicine; Referring Provider Family Medicine; Visit Provider Family Medicine
DX: M13.0 Polyarthritis, unspecified (principal); D50.9 Iron deficiency anemia, unspecified; I10 Essential (primary) hypertension
CPT/HCPCS: 36415; 80048; 82728; 84443; 85025; 85652

== ENCOUNTER → 2019-05-01 | Outpatient (CLI) | payer MEDICARE, OTHER, MEDICAID, SELFPAY ==
--- NOTE | 2019-05-01 14:34 | RAD_ITS ---
STUDY: X-RAY CHEST REASON FOR EXAM: Female, 73 years old. Persistent cough TECHNIQUE: PA and lateral views of the chest. COMPARISON: July 17, 2016 chest x-ray FINDINGS: The lungs are clear and expanded. There is no demonstrated pleural abnormality. There is borderline cardiomegaly. There is a large retrocardiac mass with an air-fluid level that measures at least 12.3 x 6.7 cm. Normal visualized pulmonary arteries. Normal visualized aortic arch and descending thoracic aorta. There are diffuse degenerative changes of the visualized thoracic spine. Normal visualized ribs, clavicles, and shoulders. There is no demonstrated abnormality of the visualized soft tissue structures of the upper abdomen. RAD/Chest PA and Lateral IMPRESSION: Large hiatal hernia. Borderline cardiac enlargement no evidence of acute focal infiltrate. Electronically Signed: Payton Whiteside MD at 15:36 EDT Tel , Service support ,
== END | disposition home or self-care (01) ==
LOC: RAD 14:32
PROVIDERS: Family Provider Family Medicine; PCP Family Medicine; Referring Provider Otolaryngology Otolaryngology/Facial Plastic Surgery; Visit Provider Otolaryngology Otolaryngology/Facial Plastic Surgery
DX: R05 Cough (principal)
CPT/HCPCS: 71046

== ENCOUNTER → 2019-05-04 | Outpatient (CLI) | payer MEDICARE, OTHER, MEDICAID, SELFPAY ==
--- NOTE | 2019-05-04 09:17 | RAD_ITS ---
Patient swallowed barium without difficulty however there is a large fixed hiatal hernia. No evidence of obstruction. The stomach was filled to the normal contour the duodenal bulb and sweep as well as proximal small bowel are unremarkable. RAD/Esophagus Only IMPRESSION: Large fixed hiatal hernia Electronically Signed: Sandra Ryan, at 16:27 EDT Tel , Service support ,
== END | disposition home or self-care (01) ==
LOC: RAD 09:14
PROVIDERS: Family Provider Family Medicine; PCP Family Medicine; Referring Provider Otolaryngology Otolaryngology/Facial Plastic Surgery; Visit Provider Otolaryngology Otolaryngology/Facial Plastic Surgery
DX: R13.10 Dysphagia, unspecified (principal); R05 Cough
CPT/HCPCS: 74220

== ENCOUNTER → 2019-05-10 | Outpatient (CLI) | payer MEDICARE, OTHER, MEDICAID, SELFPAY ==
--- NOTE | 2019-05-10 09:59 | RAD_ITS ---
STUDY: X-RAY - RIGHT HAND REASON FOR EXAM: Female, 73 years old. And spill like they are locking up, diffuse pain TECHNIQUE: 3 view(s) of the hand. COMPARISON: None. FINDINGS: Normal radiocarpal articulation. Normal distal radioulnar joint. Normal visualized carpal bones. There is degenerative joint disease of the scaphotrapezium / trapezoid articulation. The remainder of the carpal articulations are normal. There is degenerative arthrosis of the carpometacarpal (CMC) articulation of the thumb. Normal second through fifth carpometacarpal joints. There is diffuse osteopenia. No fracture seen. Normal metacarpophalangeal joint of the thumb. Normal interphalangeal joint of the thumb. Normal proximal and distal phalanges of the thumb. Normal metacarpophalangeal joints of the second through fifth fingers. Normal proximal and distal interphalangeal joints of the second through fifth fingers. Normal phalanges of the second through fifth fingers. The soft tissue structures are unremarkable. RAD/Hand Min 3 Views IMPRESSION: Mild degenerative changes. No erosive arthropathy. Osteopenia. Electronically Signed: Vijay Patel MD at 11:40 EDT , Service support ,
--- NOTE | 2019-05-10 09:59 | RAD_ITS ---
STUDY: X-RAY - LEFT HAND REASON FOR EXAM: Female, 73 years old. Left hand pain, locking up TECHNIQUE: 3 view(s) of the hand. COMPARISON: None. FINDINGS: Normal radiocarpal articulation. Normal distal radioulnar joint. There are degenerative subcortical cysts of the scaphoid and lunate. Normal carpal articulations Normal carpometacarpal articulation of the thumb. Normal second through fifth carpometacarpal joints. There is diffuse osteopenia. No fracture is seen. Normal metacarpophalangeal joint of the thumb. Normal interphalangeal joint of the thumb. Normal proximal and distal phalanges of the thumb. Normal metacarpophalangeal joints of the second through fifth fingers. Normal proximal and distal interphalangeal joints of the second through fifth fingers. Normal phalanges of the second through fifth fingers. The soft tissue structures are unremarkable. RAD/Hand Min 3 Views IMPRESSION: No fracture or malalignment. Degenerative subcortical cysts of the lunate and scaphoid. Osteopenia. Electronically Signed: Vijay Patel MD at 11:38 EDT , Service support ,
== END | disposition home or self-care (01) ==
LOC: HPRAD 09:58
PROVIDERS: Family Provider Family Medicine; PCP Family Medicine; Referring Provider Orthopaedic Surgery; Visit Provider Orthopaedic Surgery
DX: M79.644 Pain in right finger(s) (principal); M79.645 Pain in left finger(s)
CPT/HCPCS: 73130

== ENCOUNTER → 2019-08-03 | Outpatient (CLI) | payer MEDICARE, OTHER, MEDICAID, SELFPAY ==
--- NOTE | 2019-08-03 13:44 | RAD_ITS ---
HISTORY: POST OP EXAM: Left Knee COMPARISON: December 18, 2018 FINDINGS: # of images incl. paperwork: 4 Cemented left knee tricompartment arthroplasty remains in place. There is no evidence of loosening. A knee effusion remains. Thickening and calcifications are present within the region of the patellofemoral ligament. This is similar to the previous study. RAD/Knee 4 or More Views IMPRESSION: Stable appearance to cemented tricompartment arthroplasty to the left knee at 0604 Reported and signed by: Remi Chaves MD Electronically Signed: Remi Chaves MD at 6:02 EDT Tel , Service support ,
== END | disposition home or self-care (01) ==
LOC: HPRAD 13:44
PROVIDERS: Family Provider Family Medicine; PCP Family Medicine; Referring Provider Physician Assistant; Visit Provider Physician Assistant
DX: Z96.659 Presence of unspecified artificial knee joint (principal)
CPT/HCPCS: 73564

== ENCOUNTER → 2019-09-07 | Outpatient (CLI) | payer MEDICARE, OTHER, MEDICAID, SELFPAY ==
--- NOTE | 2019-09-07 10:24 | RAD_ITS ---
STUDY: X-RAY - LUMBAR SPINE REASON FOR EXAM: Female, 74 years old. Degenerative disc disease TECHNIQUE: 5 view(s) of the lumbar spine were obtained. COMPARISON: 03/23/2017 FINDINGS: Normal lumbar lordosis. There is a dextroscoliosis of the lumbar spine. There is a normal alignment of the vertebrae. There is diffuse demineralization with multi-level endplate spondylosis. There is multi-level degenerative disc disease with multi-level disc space narrowing. There is no demonstrated fracture. There is no demonstrated spondylolysis of the pars interarticulares. There is atherosclerotic calcification of the abdominal aorta without a demonstrated aneurysm. RAD/L/S Spine Min 4 Views IMPRESSION: 1. Stable degenerative changes since 2016. Electronically Signed: Vijay Patel MD ([place]) at 16:54 EDT , Service support ,
--- NOTE | 2019-09-07 10:25 | RAD_ITS ---
STUDY: X-RAY - SACROILIAC JOINTS REASON FOR EXAM: Female, 74 years old. Degenerative disc disease TECHNIQUE: 3 view(s) of the sacroiliac joints were obtained. COMPARISON: None. FINDINGS: Normal bilateral sacroiliac joints. Normal visualized sacral ala and sacrum. There is no demonstrated osseous destructive process. Normal visualized iliac bones. Normal visualized soft tissue structures. RAD/S-I Jts 3 or More Views IMPRESSION: Within normal limits for age. Electronically Signed: Lalito Yeboah MD at 17:26 EDT , Service support ,
[2019-09-07 10:45] LABS: Red Blood Cells-Urine 0 SEEN /hpf (0-5)
[2019-09-07 12:10] LABS: Absolute Lymphocyte Count 1.76 X10^3/uL (0.83-4.51); Absolute Neutrophil Count 2.5 X10^3/uL (2.0-7.7); Basophil# 0.04 X10^3/uL; Basophil% 0.8 % (0-1); Eosinophil# 0.05 X10^3/uL; Hematocrit 38.8 % (37-47); Hemoglobin 11.9 g/dL (12.0-15.0); Lymphocyte # 1.76 X10^3/ul (4.0); Lymphocyte % 35.8 % (19-41); Mean Corp Hgb Conc 30.7 g/dL (32-36); Mean Corpuscular Hgb 28.9 pg (27.0-32.0); Mean Corpuscular Volume 94.2 fL (81-99); Mean Platelet Vol. 9.9 fl (6.2-12.0); Monocyte# 0.54 X10^3/uL; NRBC Flagged by Analyzer 0 % (0-5); Neutrophil # 2.51 X10^3/uL (2.7-7.7); Neutrophil % 51.2 % (47-70); Platelet Count 287 K/mm3 (150-450); RBC Distribution Width CV 14.7 % (11.6-14.6); RBC Distribution Width SD 51.3 fl (35.1-43.9); Red Blood Count 4.12 M/mm3 (4.2-5.4); White Blood Count 4.9 K/mm3 (4.4-11.0)
[2019-09-07 12:14] LABS: Color, Urine Yellow (Yellow); Glucose, Dipstick Normal (Normal); Ketone-Dipstick Negative (Negative); Leukocyte Esterase-Dipstick 500 /ul (Negative); Nitrite-Dipstick Negative (Negative); Occult Blood-Urine Negative /ul (Negative); Protein-Dipstick 30 mg/dl (Negative); Urine Bilirubin Dipstick Negative (Negative); Urine Clarity Clear (Clear); Urine Urobilinogen Normal (Normal)
[2019-09-07 12:21] LABS: Bacteria 1+ /hpf (None Seen); Mucous, Urine 1+ /hpf (<or=2+); Squamous Epithelial Cells - UA 5-10 SEEN /hpf (5-10); White Blood Cells 5-10 SEEN /hpf (0-5)
[2019-09-07 12:27] LABS: Protein, Urine (Random) 30.6 mg/dL (<11.9); Protein:Creat Ratio 114 mg/g CRE (0-200)
[2019-09-07 12:33] LABS: Vitamin B12 497 pg/mL (211-911); Vitamin D,25 Hydroxy 26.1 ng/mL (29.95-100.01)
[2019-09-07 12:42] LABS: ALB/GLOB Ratio 0.8 RATIO (0.9-2.4); AST(SGOT) 15 U/L (15-37); Alanine Aminotransfer ALT/SGPT 17 U/L (13-56); Albumin, Serum 3.2 g/dL (3.2-5.0); Alkaline Phosphatase 119 U/L (45-117); Anion Gap 4 (5-15); BUN 24 mg/dL (7-18); BUN/Creat Ratio 15.7 RATIO (10-20); Calcium,Total 8.9 mg/dL (8.5-10.1); Chloride 112 mmol/L (98-107); Cholesterol 175 mg/dL (200); Creatinine, Serum 1.53 mg/dL (0.55-1.02); EST Glomerular Filtration Rate 35 mL/min (>60); Est Glom Filt Rate - Afr Amer 42 mL/min (>60); Ferritin 14 ng/mL (8-252); Globulin 3.8 g/dL (2.2-4.2); Glucose 88 mg/dL (74-106); High Density Lipoprotein 68 mg/dL; Iron 53 ug/dL (50-170); Iron Binding Capacity,Total 344 ug/dL (250-450); Potassium 4.3 mmol/L (3.5-5.1); Sodium Level 143 mmol/L (136-145); Triglycerides 60 mg/dL; Very Low Density Lipoprotein 12 mg/dL (5-40)
[2019-09-07 12:49] LABS: PTHIN 180.6 pg/mL (18.4-80.1)
== END | disposition home or self-care (01) ==
LOC: MTLAB 10:22
PROVIDERS: Family Provider Family Medicine; PCP Family Medicine; Referring Provider Family Medicine; Visit Provider Family Medicine
DX: M51.36 Other intervertebral disc degeneration, lumbar region (principal); D64.9 Anemia, unspecified; E78.00 Pure hypercholesterolemia, unspecified; I12.9 Hypertensive chronic kidney disease with stage 1 through stage 4 chronic kidney disease, or unspecified chronic kidney disease; N18.3 Chronic kidney disease, stage 3 (moderate)
CPT/HCPCS: 72110; 72202; 80053; 80061; 81001; 82306; 82570; 82607; 82728; 82746; 83540; 83550; 83970; 84156; 85025

== ENCOUNTER → 2019-09-27 | Outpatient (CLI) | payer MEDICARE, OTHER, MEDICAID, SELFPAY ==
[2019-09-27 12:28] LABS: Albumin, Serum 3.1 g/dL (3.2-5.0); BUN 21 mg/dL (7-18); BUN/Creat Ratio 14.8 RATIO (10-20); Calcium,Total 9.3 mg/dL (8.5-10.1); Chloride 110 mmol/L (98-107); Creatinine, Serum 1.42 mg/dL (0.55-1.02); EST Glomerular Filtration Rate 38 mL/min (>60); Est Glom Filt Rate - Afr Amer 46 mL/min (>60); Glucose 102 mg/dL (74-106); Phosphorus 3.4 mg/dL (2.5-4.9); Potassium 4.5 mmol/L (3.5-5.1); Sodium Level 144 mmol/L (136-145)
== END | disposition home or self-care (01) ==
LOC: POLAB3 10:46
PROVIDERS: Family Provider Family Medicine; PCP Family Medicine; Visit Provider Internal Medicine Nephrology
DX: N17.9 Acute kidney failure, unspecified (principal)
CPT/HCPCS: 36415; 80069

== ENCOUNTER → 2019-10-03 12:45 | Outpatient (CLI) | payer MEDICARE, OTHER, MEDICAID, SELFPAY ==
--- NOTE | 2019-10-03 12:48 | US_ITS ---
STUDY: RENAL ULTRASOUND - COMPLETE REASON FOR EXAM: Female, 74 years old. Chronic renal failure. TECHNIQUE: Ultrasound evaluation of the kidneys was performed with real-time and static zamorano-scale imaging. COMPARISON: None. FINDINGS: RIGHT KIDNEY: Normal location of the right kidney, which is normal in size. The right kidney measures 16.5 x 5.3 x 5.6 cm. There is a normal cortex of the right kidney. The renal cortex measures 1.5 cm. Within the right kidney there is a round anechoic structure measuring 10.4 x 10.5 x 9.4 cm consistent with a cyst. This is seen within the upper pole. There are no right renal calculi. There is no right hydronephrosis. DISTAL RIGHT URETER: There is non-visualization of the distal right ureter. There is no demonstrated right ureterovesical junction calculus. There is no demonstrated right ureteral jet. LEFT KIDNEY: Normal location of the left kidney, which is normal in size. The left kidney measures 9.7 x 5.7 x 5.5 cm. There is a normal cortex of the left kidney. The renal cortex measures 1.0 cm. Within the left kidney and there is a round peripelvic cyst measuring 3.2 x 2.7 x 4.0 cm seen within the middle pole. There are no left renal calculi. There is no left hydronephrosis. DISTAL LEFT URETER: There is non-visualization of the distal left ureter. There is no demonstrated left ureterovesical junction calculus. There is no demonstrated left ureteral jet. BLADDER: Not visualized. US/Kidney and Bladder IMPRESSION: Bilateral renal cyst as described above, the one on the right measuring 10.5 cm in maximum dimension and the one on the left 4.0 cm. Remainder of the retroperitoneal ultrasound unremarkable. Electronically Signed: Terri Goss MD at 3:21 EST , Service support ,
== END ==
PROVIDERS: Family Provider Family Medicine; PCP Family Medicine; Referring Provider Internal Medicine Nephrology; Visit Provider Internal Medicine Nephrology
DX: N17.9 Acute kidney failure, unspecified (principal)
CPT/HCPCS: 76770

== ENCOUNTER 2019-10-03 13:24 | Emergency (ER) | payer MEDICARE, OTHER, MEDICAID, SELFPAY ==
[2019-10-03 13:26] VITALS: BP 156/81; PULSE 85; RESP 15; TEMP 36.6; O2SAT 99; BMI 43.0
--- NOTE | 2019-10-03 14:17 | RAD_ITS ---
STUDY: X-RAY CHEST REASON FOR EXAM: Female, 74 years old. 2 week history of productive cough. TECHNIQUE: PA and lateral views of the chest. COMPARISON: None. FINDINGS: The lungs are clear and expanded. There is no demonstrated pleural abnormality. Normal size heart. Normal mediastinum and leonor. Normal visualized pulmonary arteries. There is atherosclerotic calcification of the aortic arch with tortuosity. There is demineralization of the osseous structures. Normal visualized ribs, clavicles, and shoulders. Moderate sized hiatal hernia. RAD/Chest PA and Lateral IMPRESSION: Moderate sized hiatal hernia. Electronically Signed: Duy Lopez, at 15:24 EST , Service support ,
[2019-10-03] MEDS: Albuterol 2.5 MG/3 ML VIAL.NEB. INHALATION (14:25)
[2019-10-03 14:26] VITALS: PULSE 89; RESP 19
--- NOTE | 2019-10-03 14:50 | ED.DCSUM_ITS ---
History of Present Illness Chief Complaint: Cough Informant: Patient Onset: Weeks - 1 week Context: Sudden Onset Timing: Intermittent Quality: Active cough colored sputum and wheezing Location: Respiratory Current Severity: Mild Maximum Severity: Moderate Worsened by: Wheezing worse at night Relieved by: Nothing Associated Symptoms: Fever documented to 102.0 ?F Narrative: Patient is an elderly woman who presents with fever document 102.0 ?F, productive cough, wheezing for approximately 1 week. She denies history of PE or DVT. She is a non-smoker. She denies history of asthma. She reported minimal nasal congestion at the onset of illness. She denies headache. She denies visual, ocular auditory symptoms. She denies sore throat. She denies chest pain. She denies GI symptoms. She denies myalgias, arthralgias. She states she became ill 1 day after flu shot. Prior similar symptoms: No Recent Illness/Hospitalization: No - Past Medical History (1) Benign essential hypertension Status: Chronic (2) GERD (gastroesophageal reflux disease) Status: Chronic Past Medical History - Allergies and Home Meds Allergies/Adverse Reactions: Allergies codeine Adverse Reaction (Verified 10/03/19 13:25) Nausea latex Adverse Reaction (Verified 10/03/19 13:25) Rash tape causes blisters tramadol [From Ultram] Adverse Reaction (Verified 10/03/19 13:25) Itching Primary Care Physician: Lazaro Yañez MD [Primary Care Provider] - Surgical History: noncontributory, - - Left foot surgery Lives: Alone Smoking Status: Never smoker Alcohol: None Drugs: None - Family History Sibling Family History: Reports: Diabetes Review of Systems General: Reports: Chills, Fever. Denies: Malaise, Subjective, Sweats Eyes: Denies: Visual changes - bilaterally, Diplopia ENT: Denies: Bilateral ear pain, Rhinorrhea, Sore throat Cardiovascular: Denies: Chest pain, Palpitations Respiratory: Reports: Dyspnea, Cough, Sputum. Denies: Dyspnea on exertion, Orthopnea, Paroxysmal nocturnal dyspnea Gastrointestinal: Denies: Abdominal pain, Nausea, Vomiting, Diarrhea, Melena, Hematochezia Genitourinary: Denies: Dysuria, Hematuria, Frequency Musculoskeletal: Denies: Myalgias, Arthralgias, Neck pain, Back pain, Extremity Pain Skin: Denies: Rash, Wounds Neurological: Denies: Headache, Weakness, Numbness Hematologic: Denies: Easy bruising, Easy bleeding Allergy: Denies: Uticaria, Swelling of the mouth Physical Exam Vital Signs/Narrative: Vital Signs Temp Pulse Resp BP Pulse Ox 10/03/19 14:26 89 19 H 10/03/19 13:26 97.8 F 85 15 156/81 H 99 Inital Vital Signs reviewed: Yes General: Well nourished, Well developed, No Acute Distress Head: Normocephalic, Atraumatic Eyes: Perrl, EOMI ENT: Moist mucous membranes, No rhinorrhea Neck: Supple, Nontender Cardiovascular: Regular rate, Regular rhythm, No murmurs, Normal S1, Normal S2 Respiratory: No distress, Chest nontender, Rales - Rales noted right lower lobe with egophony and increased vocal fremitus.. Negative for: CTA bilaterally Abdomen: Soft, Nontender, Nondistended, Normal bowel sounds Back: Nontender, Normal Inspection Extremities: Nontender, No edema, - - There is no asymmetry, swelling, discolora tion, leg vein distention, palpable cords or tenderness along the distribution of the deep venous system. Skin: Normal color, No rash, No Trauma. Negative for: Cyanosis, Diaphoresis, Jaundice Neurological: Alert, Oriented x3, Cranial nerves II-XII grossly intact, Normal Strength, Normal Sensation Psychological: Normal affect, Normal Mood Diagnostic/Tx/Re-eval Chest X-Ray - ED: 2 View, Read by ED Physician, Normal, Heart, Lungs, Bony Structures, No Acute Disease, - - There is evidence of a hiatal hernia. Impressions Chest X-Ray 10/03/19 14:17 IMPRESSION: Moderate sized hiatal hernia. Electronically Signed: Duy Lopez, at 15:24 EST , Service support , 10/03/19 14:17 Chest PA and Lateral [RAD] Stat Laboratory Results 10/03/19 10/03/19 15:00 15:00 WBC 5.8 RBC 4.08 L Hgb 11.9 L Hct 37.7 MCV 92.4 MCH 29.2 MCHC 31.6 L RDW Std Deviation 47.9 H RDW Coeff of Quique 14.1 Plt Count 287 MPV 9.5 Immature Gran % (Auto) 0.200 Neut % (Auto) 53.0 Lymph % (Auto) 30.4 [place] % (Auto) 13.6 H Eos % (Auto) 2.1 Baso % (Auto) 0.7 Absolute Neuts (auto) 3.1 Absolute Lymphs (auto) 1.75 Nucleated RBC % 0 Sodium 143 Potassium 4.2 Chloride 112 H Carbon Dioxide 27.0 Anion Gap 4 L BUN 28 H Creatinine 1.96 H Estim Creat Clear Calc 20.20 Est GFR (MDRD) Af Amer 32 L Est GFR (MDRD) Non-Af 26 L BUN/Creatinine Ratio 14.3 Glucose 96 Calcium 9.0 CBC is unremarkable. Creatinine is slightly elevated from baseline. There is evidence of acute on chronic renal insufficiency. Patient was prescribed doxycycline and albuterol MDI. Patient has used an inhaler in the past and is proficient on proper use. - Medical Decision Making Patient has pneumonia. Chest x-ray was obtained and appropriate blood work for risk stratification determined patient is an inpatient or outpatient candidate. ED Disposition - Plan for ED Patient: Disposition: Home or Assisted Living Diagnosis: Community acquired pneumonia, Acute bronchospasm Instructions: PNEUMONIA (Adult) Prescriptions: Doxycycline 100 mg PO BID #14 cap Prescription Printed Albuterol Inhaler [Ventolin Hfa] 2 puff INHALATION Q4H PRN PRN #1 inhaler PRN Reason: Wheezing Prescription Printed Referrals: Lazaro Yañez MD [Primary Care Provider] - 3-5 Days if not improving
[2019-10-03 15:10] LABS: Absolute Lymphocyte Count 1.75 X10^3/uL (0.83-4.51); Absolute Neutrophil Count 3.1 X10^3/uL (2.0-7.7); Basophil# 0.04 X10^3/uL; Basophil% 0.7 % (0-1); Eosinophil# 0.12 X10^3/uL; Eosinophils% 2.1 % (0-5); Hematocrit 37.7 % (37-47); Hemoglobin 11.9 g/dL (12.0-15.0); Lymphocyte # 1.75 X10^3/ul (4.0); Lymphocyte % 30.4 % (19-41); Mean Corp Hgb Conc 31.6 g/dL (32-36); Mean Corpuscular Hgb 29.2 pg (27.0-32.0); Mean Corpuscular Volume 92.4 fL (81-99); Mean Platelet Vol. 9.5 fl (6.2-12.0); Monocyte# 0.78 X10^3/uL; Monocyte% 13.6 % (0-10); NRBC Flagged by Analyzer 0 % (0-5); Neutrophil # 3.05 X10^3/uL (2.7-7.7); Platelet Count 287 K/mm3 (150-450); RBC Distribution Width CV 14.1 % (11.6-14.6); RBC Distribution Width SD 47.9 fl (35.1-43.9); Red Blood Count 4.08 M/mm3 (4.2-5.4); White Blood Count 5.8 K/mm3 (4.4-11.0)
[2019-10-03 15:21] LABS: Anion Gap 4 (5-15); BUN 28 mg/dL (7-18); BUN/Creat Ratio 14.3 RATIO (10-20); Chloride 112 mmol/L (98-107); Creatinine, Serum 1.96 mg/dL (0.55-1.02); EST Glomerular Filtration Rate 26 mL/min (>60); Est Glom Filt Rate - Afr Amer 32 mL/min (>60); Glucose 96 mg/dL (74-106); Potassium 4.2 mmol/L (3.5-5.1); Sodium Level 143 mmol/L (136-145)
[2019-10-03] MEDS: Doxycycline 100 MG CAPSULE PO (15:49)
[2019-10-03 15:55] VITALS: BP 131/108; PULSE 78; RESP 16; RESP 18; O2SAT 100
== END 2019-10-03 16:00 | disposition home or self-care (01) ==
PROVIDERS: Emergency Provider Emergency Medicine; Family Provider Family Medicine; PCP Family Medicine
DX: J18.9 Pneumonia, unspecified organism (principal); J98.01 Acute bronchospasm; N17.9 Acute kidney failure, unspecified; I10 Essential (primary) hypertension; K21.9 Gastro-esophageal reflux disease without esophagitis; K44.9 Diaphragmatic hernia without obstruction or gangrene; Z79.899 Other long term (current) drug therapy
CPT/HCPCS: 71046; 76770; 80048; 85025; 94640; 99285

== ENCOUNTER → 2019-10-09 16:38 | Outpatient (CLI) | payer MEDICARE, OTHER, MEDICAID, SELFPAY ==
[2019-10-03 13:26] VITALS: BMI 43.0
--- NOTE | 2019-10-09 16:41 | BI_ITS ---
MAMMOGRAPHY - BILATERAL SCREENING 3-D TOMOSYNTHESIS REASON FOR EXAM: Female, 74 years old. PERTINENT HISTORY: No significant family history. TECHNIQUE: 2-D mammograms and 3-D Tomosynthesis of the breast (s) were performed. CAD was performed. COMPARISON: September 21, 2018 FINDINGS: Both breasts are again entirely involuted by adipose tissue without evidence of stellate lesion, microcalcifications, skin thickening or nipple retraction. Benign looking lymph nodes noted in the axillary areas bilaterally. BI/SCREEN MAMM (CAD) W/SANTOS BILAT IMPRESSION: Negative digital mammography of both breasts unchanged since September 21, 2018. BIRADS-l. For yearly checkup. Electronically Signed: Sandra Ryan, at 11:21 EST Tel , Service support ,
== END ==
PROVIDERS: Family Provider Family Medicine; PCP Family Medicine; Referring Provider Family Medicine; Visit Provider Family Medicine
DX: Z12.31 Encounter for screening mammogram for malignant neoplasm of breast (principal)
CPT/HCPCS: 77063; 77067

== ENCOUNTER 2019-11-20 14:09 | Outpatient (RCR) | payer MEDICARE, OTHER, MEDICAID, SELFPAY ==
[2019-11-20 13:37] VITALS: BMI 43.0
--- NOTE | 2019-11-20 15:12 | HP.OTEVAL ---
Patient's Visit Information SHARON REED is a 74 year old F, referred to Occupational Therapy by Florence Finley DO, with a diagnosis of p/o scaring, hand pain 5th finger. Date of Evaluation: 11/20/19 Occupational Therapist: Jade Urban, OTR/L - Subjective Subjective: Sharon arrived at assessment. She is familiar to OT. She has 5th finger flexor tendon repair in 2018 and is experiencing some increase in scaring of R hand. She is R hand dominant and noted some sensitivity and tenderness around scar. - ADLs Miscellaneous: Open medication bottle, Handle money (change), Write, Do crafts, Sew, Nela/knit/needlework Comments: She is R hand dominant. Notes increased difficulty holding things in R hand with pills and other small items spilling out of her grasp. - Pain R PF 8 Pain Intensity Range: 1, 8 - Objective Objective/Observation: Increased scar tissue formation around palmar scarring. Tender with palpation. - ROM Wrist: WFL MP: PF R 0-95, L WFL PIP: PF R 20-82, L WFL DIP: PF R 15- 31, L WFL ROM Comments: She is able to make full composite fist. With decreased ability to complete flexion at PIP and DIP of R PF. - Strength Operations Controller: R 40, L 54 Lateral Pinch: R 14, L 10 Tripod Pinch: R 7, L 8 - Sensation Thumb: R 3.22, L WFL Index: R 2.83, L WFL Middle: R 3.22, L WFL Ring: R 3.22, L WFL Little: R 3.22, L WFL Sensation Comments: Noted some increased pain in which scar massage should help desensitize and she noted she is still completing desensitization techniques. - Quick DASH-Disab of Arm,Shoulder& Hand Quick DASH Score: 61.3625 - Goals Goal:: Sharon to increase R market sales manager by 10 lbs to promote increased strength , endurance, and tendon pull of R PF for functional tasks by d/c. Goal:: Shraon to complete daily scar massage as needed to PF to promote decreased scar tissue formation and increased function of R PF 2/3 trials 7%% of the time by d/c. Goal:: Sharon to be mod I to demonstrate understanding of compression glove use and HEP to promote strength, endurance, and desensitization 4/5 trials 80% of the time by d/c. Goal:: Sharon to complete desensitization techniques of R PF to promote increased sensory regulation and decreased pain 4/5 trials 80% of the time by d/c. - Rehabilitation General Assessment: Sharon is s/p flexor tendon injury with repair of R PF in 2018. She noted increased scarring and sharp pain starting within the last few months. She would benefit from compression garment and further therapist recommendation provided on what kind (Juzo or isotoner both over the counter, open fingertips, and handouts were provided) and size. She was referred to [facility] to get glove ordered and educated she needs script from doctor to get it covered by insurance. She was also educated that she could pay out of pocket and order the gloves online via medical website or [employer]. She was recommended to these locations as the hospital does not supple DME. Elastomer was provided for scar area as well as compression from tubigrip size D until glove can be provided. She would benefit from follow up in 2-3 weeks once glove is received to see how things are going and if further treatment is needed. She was provided with home exercises to promote mobility and strength of R hand. Rehabilitation Potential: Good - Anticipated Interventions Anticipated Interventions: A/AAROM/PROM, Scar Care, Desensitization, Modalities, Joint Protection/Energy Conservation, Caregiver Training, Home Program - Visit Plan Frequency: 1x follow up Duration: 3 Weeks General Plan: Sharon is being outsourced to 3rd alliance party vendor of [employer] as she does not complete online shopping. With script they can order in a compression glove that OT has recommended. Handouts have been provided on gloves recommended and with size and pricing options if she were to have one of her daughter order online instead. She is to look into glove with resources provided by OT and follow up in 2-3 weeks. Contact information was provided for her to call as needed with questions for further follow up. Scar massage, HEP for putty exercises were provided for full market sales manager, finger hook grasp, and finger ext. She was provided with tubigrip and elastomer to help manage scar and pain at this time. She is familiar with previous home exercises and desensitization techniques per Pt. report that she is to continue to complete prior to her next follow up. TEXT: Thank you for the opportunity to evaluate your patient. For Medicare and Medicare HMO plans, please review the plan of care and approve it. It will need to be FAXED BACK to us at [phone] for Medicare purposes. Please let me know if there are questions or concerns regarding this plan of care. Physician Signature: Date:
--- NOTE | 2019-12-25 09:17 | HP.OTDCNRP_ITS ---
HP - Discharge Summary - Patient Information CLAUDIA REED was seen in my office for initial evaluation on 11/20/19. The following Plan of Care was established for this patient: Initial Frequency: 1x follow up Initial Duration: 3 Weeks - Anticipated Interventions Anticipated Interventions: A/AAROM/PROM, Scar Care, Desensitization, Modalities, Joint Protection/Energy Conservation, Caregiver Training, Home Program This patient was last seen in our office 11/20/19. Pertinent comments regarding their Occupational therapy will appear below: Seen one time for initial evaluation due to scar tissue formation. Provided e lastomer and educated on where to purchase edema type of glove for maintained decreased scar tissue formation. She was to have further follow-up but did not attend her scheduled appointment. OT tried to call twice on two separate occasions but phone would not ring through and Pt. to be d/c'd at this time. At this point I will be discontinuing this patient from occupational therapy. I would be happy to see this patient again in the future if found appropriate by the physician. Thank you! Jade Urban, OTR/L
== END 2019-11-20 19:00 | disposition home or self-care (01) ==
LOC: OT 14:09
PROVIDERS: Family Provider Family Medicine; PCP Family Medicine; Referring Provider Orthopaedic Surgery; Visit Provider Orthopaedic Surgery
DX: L90.5 Scar conditions and fibrosis of skin (principal); M79.643 Pain in unspecified hand
CPT/HCPCS: 97166

== ENCOUNTER → 2019-11-29 16:31 | Outpatient (CLI) | payer MEDICARE, OTHER, MEDICAID, SELFPAY ==
[2019-11-20 13:37] VITALS: BMI 43.0
[2019-11-29 17:00] LABS: Absolute Lymphocyte Count 1.96 X10^3/uL (0.83-4.51); Absolute Neutrophil Count 2.7 X10^3/uL (2.0-7.7); Basophil# 0.02 X10^3/uL; Basophil% 0.4 % (0-1); Eosinophil# 0.09 X10^3/uL; Eosinophils% 1.7 % (0-5); Hematocrit 38.2 % (37-47); Hemoglobin 12.2 g/dL (12.0-15.0); Lymphocyte # 1.96 X10^3/ul (4.0); Lymphocyte % 37.1 % (19-41); Mean Corp Hgb Conc 31.9 g/dL (32-36); Mean Corpuscular Hgb 29.5 pg (27.0-32.0); Mean Corpuscular Volume 92.5 fL (81-99); Mean Platelet Vol. 9.9 fl (6.2-12.0); Monocyte# 0.47 X10^3/uL; Monocyte% 8.9 % (0-10); NRBC Flagged by Analyzer 0 % (0-5); Neutrophil # 2.74 X10^3/uL (2.7-7.7); Neutrophil % 51.7 % (47-70); Platelet Count 286 K/mm3 (150-450); RBC Distribution Width CV 14.2 % (11.6-14.6); RBC Distribution Width SD 47.9 fl (35.1-43.9); Red Blood Count 4.13 M/mm3 (4.2-5.4); White Blood Count 5.3 K/mm3 (4.4-11.0)
[2019-11-29 17:55] LABS: ALB/GLOB Ratio 0.8 RATIO (0.9-2.4); AST(SGOT) 14 U/L (15-37); Alanine Aminotransfer ALT/SGPT 17 U/L (13-56); Albumin, Serum 3.1 g/dL (3.2-5.0); Alkaline Phosphatase 119 U/L (45-117); Anion Gap 4 (5-15); BUN 23 mg/dL (7-18); BUN/Creat Ratio 13.5 RATIO (10-20); Calcium,Total 8.7 mg/dL (8.5-10.1); Chloride 115 mmol/L (98-107); EST Glomerular Filtration Rate 31 mL/min (>60); Est Glom Filt Rate - Afr Amer 38 mL/min (>60); Globulin 3.8 g/dL (2.2-4.2); Glucose 132 mg/dL (74-106); Potassium 3.7 mmol/L (3.5-5.1); Protein, Total 6.9 g/dL (6.4-8.2); Sodium Level 143 mmol/L (136-145)
[2019-11-29 20:01] LABS: Phosphorus 3.5 mg/dL (2.5-4.9)
[2020-06-23 07:52] VITALS: BMI 43.0
== END ==
PROVIDERS: Internal Medicine Nephrology; PCP Family Medicine; Visit Provider Orthopaedic Surgery
DX: N18.3 Chronic kidney disease, stage 3 (moderate) (principal); D63.1 Anemia in chronic kidney disease; E55.9 Vitamin D deficiency, unspecified
CPT/HCPCS: 36415; 80053; 82306; 84100; 85025

== ENCOUNTER → 2019-11-30 13:58 | Outpatient (CLI) | payer MEDICARE, OTHER, MEDICAID, SELFPAY ==
[2019-11-20 13:37] VITALS: BMI 43.0
[2019-11-30 14:58] LABS: Cholesterol 186 mg/dL (200); High Density Lipoprotein 64 mg/dL; Triglycerides 108 mg/dL; Very Low Density Lipoprotein 22 mg/dL (5-40)
== END ==
PROVIDERS: PCP Family Medicine; Referring Provider Family Medicine; Visit Provider Family Medicine
DX: E78.00 Pure hypercholesterolemia, unspecified (principal)
CPT/HCPCS: 36415; 80061

== ENCOUNTER → 2019-12-13 | Outpatient (CLI) | payer MEDICARE, OTHER, MEDICAID, SELFPAY ==
[2019-11-20 13:37] VITALS: BMI 43.0
[2019-12-13 12:48] LABS: BUN 24 mg/dL (7-18); Creatinine, Serum 1.79 mg/dL (0.55-1.02); Glucose 92 mg/dL (74-106)
[2019-12-13 12:49] LABS: Albumin, Serum 3.1 g/dL (3.2-5.0); BUN/Creat Ratio 13.4 RATIO (10-20); Chloride 110 mmol/L (98-107); EST Glomerular Filtration Rate 29 mL/min (>60); Est Glom Filt Rate - Afr Amer 35 mL/min (>60); Phosphorus 3.9 mg/dL (2.5-4.9); Sodium Level 142 mmol/L (136-145)
== END | disposition home or self-care (01) ==
LOC: POLAB3 10:02
PROVIDERS: PCP Family Medicine; Visit Provider Internal Medicine Nephrology
DX: N17.9 Acute kidney failure, unspecified (principal)
CPT/HCPCS: 36415; 80069

== ENCOUNTER → 2019-12-24 | Outpatient (CLI) | payer MEDICARE, OTHER, MEDICAID, SELFPAY ==
[2019-12-24 09:10] LABS: Albumin, Serum 3.3 g/dL (3.2-5.0); BUN 25 mg/dL (7-18); BUN/Creat Ratio 15.8 RATIO (10-20); Calcium,Total 9.3 mg/dL (8.5-10.1); Chloride 112 mmol/L (98-107); Creatinine, Serum 1.58 mg/dL (0.55-1.02); EST Glomerular Filtration Rate 34 mL/min (>60); Est Glom Filt Rate - Afr Amer 41 mL/min (>60); Glucose 94 mg/dL (74-106); Phosphorus 3.7 mg/dL (2.5-4.9); Potassium 4.2 mmol/L (3.5-5.1); Sodium Level 144 mmol/L (136-145)
== END | disposition home or self-care (01) ==
PROVIDERS: PCP Family Medicine; Referring Provider Internal Medicine Nephrology; Visit Provider Internal Medicine Nephrology
DX: N17.9 Acute kidney failure, unspecified (principal)
CPT/HCPCS: 36415; 80069

== ENCOUNTER 2020-01-22 13:30 | Outpatient (RCR) | payer MEDICARE, OTHER, MEDICAID, SELFPAY ==
[2020-01-08 13:01] VITALS: BMI 43.0
--- NOTE | 2020-01-08 14:19 | HP.OTEVAL ---
Patient's Visit Information SHARON REED is a 74 year old F, referred to Occupational Therapy by Beka Ramírez MD, with a diagnosis of Trigger finger L 3rd finger. Date of Evaluation: 01/08/20 Occupational Therapist: LINDA Mast/Maricarmen - Subjective Subjective: Arrived and noted she is s/p injection of L 3rd trigger finger and joint arthosis occuring immediately prior to session. She noted she has been referred for therapy now for left hand as was previously being seen for right hand injury. - ADLs Dressing: Pants, Socks, Shoes Fasteners: Tie shoes, Buttons, [place] Eating: Use silverware, Cut food Bathing: Squeeze shampoo bottle Toileting: Manage clothing Grooming: Comb hair Comments: styling hair Kitchen: Peel fruits & vegetables, Open jars, Open bottle caps, Lift gallon of milk, Pour from pitcher, Lift saucepan Miscellaneous: Use computer keyboard, Nela/knit/needlework Comments: Sharon is right hand dominant. She noted pain is in left hand so all automation/controls manager bilateral hand tasks are difficult and painful around 3rd finger/middle finger. - Pain L 3rd finger 2 Pain Intensity Range: 2, 9 - Objective Objective/Observation: Bandaid on covering recent injection site; decreased sensation of L MF due to numbing agent. Decreased Celso nd strength compared to R nonaffected hand. - ROM MP: MF R 0-90, L 0-81 PIP: MF R 0-100, L 6-88 DIP: MF R 0-46, L -5-0-42 ROM Comments: Increased stiffness noted on L MF. - Strength Armored Transport Service Manager: R 45, L 23 Lateral Pinch: R 15, L 7 Tripod Pinch: R 10, L 5 Tip-to-Tip Pinch: R 6, L 3 - Sensation Sensation Comments: MF numb and tingling as numbing agent used for injection prior to session. - Nine Hole Peg Right: 22.40 s Left: 29.50 s - Quick DASH-Disab of Arm,Shoulder& Hand Quick DASH Score: 84.0900 - Goals Goal:: Sharon to increase L automation/controls manager strength by 15 lbs to promote increased strength and endurance of Lhand for self-care tasks 4/5 trials 80% of the time by d/c. Goal:: Sharon to increase L MF PIP ROM by 5 degress to promote increased tendon glide and pull through A1 denise to helpd ecrease stiffness from trigger finger and promote returning to PLOF with L hand. Goal:: Sharon to have less than 1-2 eipsodes of triggering a week with ability to complete self-management techniques to promote increased function of L hand for ADL/IADLs by d/c. Goal:: Sharon to be mod I to complete energy conservationa nd joint protction techniques for B hands to decrease symptoms of arthritis 4/5 trials 80% of the time by d/c. Goal:: Sharon to be (I) to return to PLOF for all ADL/AIDls including tasks requiring repetitive automation/controls manager with L hand 4/5 trials 80% of the time for ADL/IADLs by d/c. Goal:: Sharon to be mod I to complete daily HEP to promote tendon glide, strength, and ROM of L MF 4/5 trials 80% of the time by d/c. - Rehabilitation General Assessment: Sharon is s/p injection to L MF due to ongoing symptoms of trigger finger. She exhibits decreased CELSO nd strength of L MF and would beenfit from skilld OT to promote tendon glide, ROM,a nd strength of L hand for needed ADL/IADLs by d/c. Rehabilitation Potential: Good - Anticipated Interventions Anticipated Interventions: Early Active Motion, A/AAROM/PROM, Strengthening, Desensitization, Modalities, Orthoses, Joint Protection/Energy Conservation, Ergonomic Education, Fine Motor Coord/Jose J, ADL Training, Caregiver Training, Home Program - Visit Plan Frequency: 1-2x /Week Duration: 4 Weeks General Plan: Sharon to complete skilled OT to promote strength, ROM, and tendon glide of L MF to promote increased ROM and decreased pain to promote returning to use of LUE at PLOF. TEXT: Thank you for the opportunity to evaluate your patient. For Medicare and Medicare HMO plans, please review the plan of care and approve it. It will need to be FAXED BACK to us at [phone] for Medicare purposes. Please let me know if there are questions or concerns regarding this plan of care. Physician Signature: Date:
--- NOTE | 2020-01-22 14:04 | HP.OTREVAL ---
Beka Ramírez MD, It has been my pleasure to treat SHARON REED over the last 5 visits for Trigger finger L 3rd finger. Please see the progress note below for an update on the occupational therapy plan of care! Subjective: Arrived and noted 1x episode of pain that was short lasting for less than 10 s. She noted she feels about 75% back to normal. Objective/Function: Completed new measurements on this date of 01/22/2020: ROM: MCP R WFL, L MF 0-86, , RF 0-85. PIP R WFL, L MF 0-110, , RF 0-112. DIP R WFL, L MF 0-53, , RF 0-42. Strength: measurement coordinator R 30, L 54. lateral R 13, L 8. tripod R 7, L 8. pincer R 5, L 6. 9 hole pegboard test: R 21.85, L 23.37 s Plan Frequency: 1-2x /Week Duration: 4 Weeks Visits in this POC: 4-8 Plan: Sharon has progressed and meant most goals. She will be d/c'd on this date and is to return if problems arise. She is to continue HEP as instructed. She is to start with icing if needed if triggering increases and return to Dr. Tidwell if problems arise. Otherwise finger is not triggering and pain as subsided. She has had 2x accounts of pain within starting therapy and understands HEP for conservative management. Goals - Goals Goal:: Sharon to increase L measurement coordinator strength by 15 lbs to promote increased strength and endurance of Lhand for self-care tasks 4/5 trials 80% of the time by d/c. Goal:: Sharon to increase L MF PIP ROM by 5 degress to promote increased tendon glide and pull through A1 denise to helpd ecrease stiffness from trigger finger and promote returning to PLOF with L hand. Goal:: Sharon to have less than 1-2 eipsodes of triggering a week with ability to complete self-management techniques to promote increased function of L hand for ADL/IADLs by d/c. Goal:: Sharon to be mod I to complete energy conservationa nd joint protction techniques for B hands to decrease symptoms of arthritis 4/5 trials 80% of the time by d/c. Goal:: Sharon to be (I) to return to PLOF for all ADL/AIDls including tasks requiring repetitive measurement coordinator with L hand 4/5 trials 80% of the time for ADL/IADLs by d/c. Goal:: Sharon to be mod I to complete daily HEP to promote tendon glide, strength, and ROM of L MF 4/5 trials 80% of the time by d/c. Anticipated Interventions Anticipated Interventions: Early Active Motion, A/AAROM/PROM, Strengthening, Desensitization, Modalities, Orthoses, Joint Protection/Energy Conservation, Ergonomic Education, Fine Motor Coord/Jose J, ADL Training, Caregiver Training, Home Program Please do not hesitate to contact me at [phone] by phone or if you have questions or concerns regarding this new plan of care! Sincerely, Jade Urban, OTR/L
--- NOTE | 2020-01-22 14:04 | HP.OTDCSUM ---
HP - OT D/C Summary It has been my pleasure to treat SHARON REED under orders from Beka Ramírez MD, for the diagnosis of Trigger finger L 3rd finger for a total of 5 visit(s). Please see the following information for a summary of their discharge status. - Overall Improvement % Improvement: 75 - Objective Objective/Function: Completed new measurements on this date of 01/22/2020: ROM: MCP R WFL, L MF 0-86, , RF 0-85. PIP R WFL, L MF 0-110, , RF 0-112. DIP R WFL, L MF 0-53, , RF 0-42. Strength: county health officer R 30, L 54. lateral R 13, L 8. tripod R 7, L 8. pincer R 5, L 6. 9 hole pegboard test: R 21.85, L 23.37 s - Goals Patient Goals: Regain Mobility, Regain Strength, Decrease Pain, Decrease Swelling/Stiffness, Improve Fine Motor Skills, Use Hand/Wrist/Arm Normally Again, Sleep Better, Decrease Tingling/Numbness, Increase ROM, Be More Independent in ADLS, Resume Former Household Responsibilities (Cooking,Cleaning,Yard, etc.), Resume Hobbies Goal:: Sharon to increase L county health officer strength by 15 lbs to promote increased strength and endurance of Lhand for self-care tasks 4/5 trials 80% of the time by d/c. Goal:: Sharon to increase L MF PIP ROM by 5 degress to promote increased tendon glide and pull through A1 denise to helpd ecrease stiffness from trigger finger and promote returning to PLOF with L hand. Goal:: Sharon to have less than 1-2 eipsodes of triggering a week with ability to complete self-management techniques to promote increased function of L hand for ADL/IADLs by d/c. Goal:: Sharon to be mod I to complete energy conservationa nd joint protction techniques for B hands to decrease symptoms of arthritis 4/5 trials 80% of the time by d/c. Goal:: Sharon to be (I) to return to PLOF for all ADL/AIDls including tasks requiring repetitive county health officer with L hand 4/5 trials 80% of the time for ADL/IADLs by d/c. Goal:: Sharon to be mod I to complete daily HEP to promote tendon glide, strength, and ROM of L MF 4/5 trials 80% of the time by d/c. - Plan Plan: Sharon has progressed and meant most goals. She will be d/c'd on this date and is to return if problems arise. She is to continue HEP as instructed. - D/C Information If there are questions or concerns regarding this patient's occupational therapy, please fell free to call me at [phone]. Thank you for the referral of this patient. Sincerely, Jade Urban, OTR/L
== END 2020-01-22 17:47 | disposition home or self-care (01) ==
LOC: OT 13:30
PROVIDERS: PCP Family Medicine; Referring Provider Family Medicine; Visit Provider Family Medicine
DX: M65.332 Trigger finger, left middle finger (principal); M19.042 Primary osteoarthritis, left hand
CPT/HCPCS: 97110; 97166; 97168; 97530

== ENCOUNTER → 2020-02-27 10:56 | Outpatient (CLI) | payer MEDICARE, OTHER, MEDICAID, SELFPAY ==
[2020-01-08 13:01] VITALS: BMI 43.0
--- NOTE | 2020-02-27 11:03 | RAD_ITS ---
STUDY: X-RAY - LEFT KNEE REASON FOR EXAM: Female, 74 years old. Fell 6 days ago, pain TECHNIQUE: 4 view(s) of the knee. COMPARISON: Comparison is made with prior study dated August 03, 2019. FINDINGS: Normal visualized distal femur. Normal visualized proximal tibia and fibula. Normal proximal tibiofibular articulation. The patient is status post left knee replacement. There is good alignment. Small joint effusion. RAD/Knee 4 or More Views IMPRESSION: Status post total knee replacement. There is good alignment. Small joint effusion. Electronically Signed: Duy Lopez, at 11:45 EDT , Service support ,
--- NOTE | 2020-02-27 11:04 | RAD_ITS ---
STUDY: X-RAY - LEFT SHOULDER REASON FOR EXAM: Female, 74 years old. Fell 6 days ago, pain TECHNIQUE: 4 view(s) of the shoulder. COMPARISON: None. FINDINGS: Normal glenohumeral articulation. Normal acromioclavicular joint. Normal acromion. Normal humeral head and visualized proximal humerus. The soft tissue structures are unremarkable. Calcified granulomas RAD/Shoulder min 2 Views IMPRESSION: Normal x-ray examination of the shoulder. Electronically Signed: Duy Lopez, at 11:43 EDT , Service support ,
--- NOTE | 2020-02-27 11:04 | RAD_ITS ---
STUDY: X-RAY - LEFT HAND REASON FOR EXAM: Female, 74 years old. Fell 6 days ago, pain -- removed a stone from 2nd digit distal TECHNIQUE: 3 view(s) of the hand. COMPARISON: None. FINDINGS: Normal radiocarpal articulation. Normal distal radioulnar joint. Normal visualized carpal bones. Normal carpal articulations Normal carpometacarpal articulation of the thumb. Normal second through fifth carpometacarpal joints. Normal metacarpi. Normal metacarpophalangeal joint of the thumb. Normal interphalangeal joint of the thumb. Normal proximal and distal phalanges of the thumb. Normal metacarpophalangeal joints of the second through fifth fingers. Normal proximal and distal interphalangeal joints of the second through fifth fingers. Normal phalanges of the second through fifth fingers. The soft tissue structures are unremarkable. RAD/Hand Min 3 Views IMPRESSION: Normal x-ray examination of the hand. Electronically Signed: Duy Lopez, at 11:42 EDT , Service support ,
== END ==
PROVIDERS: PCP Family Medicine; Referring Provider Family Medicine; Visit Provider Family Medicine
DX: M25.512 Pain in left shoulder (principal); M25.562 Pain in left knee; M79.642 Pain in left hand
CPT/HCPCS: 73030; 73130; 73564

== ENCOUNTER → 2020-03-17 | Outpatient (CLI) | payer MEDICARE, OTHER, MEDICAID, SELFPAY ==
[2020-01-08 13:01] VITALS: BMI 43.0
[2020-03-17 15:16] LABS: Absolute Lymphocyte Count 1.67 X10^3/uL (0.83-4.51); Absolute Neutrophil Count 2.9 X10^3/uL (2.0-7.7); Basophil# 0.04 X10^3/uL; Basophil% 0.8 % (0-1); Eosinophil# 0.08 X10^3/uL; Eosinophils% 1.6 % (0-5); Hematocrit 37.4 % (37-47); Lymphocyte # 1.67 X10^3/ul (4.0); Lymphocyte % 32.4 % (19-41); Mean Corp Hgb Conc 32.1 g/dL (32-36); Mean Corpuscular Hgb 30.4 pg (27.0-32.0); Mean Corpuscular Volume 94.7 fL (81-99); Monocyte# 0.48 X10^3/uL; Monocyte% 9.3 % (0-10); NRBC Flagged by Analyzer 0 % (0-5); Neutrophil # 2.86 X10^3/uL (2.7-7.7); Neutrophil % 55.5 % (47-70); Platelet Count 251 K/mm3 (150-450); RBC Distribution Width CV 14.3 % (11.6-14.6); Red Blood Count 3.95 M/mm3 (4.2-5.4); White Blood Count 5.2 K/mm3 (4.4-11.0)
[2020-03-17 15:21] LABS: Erythrocyte Sedimentation Rate 59 mm/hr (0-30)
[2020-03-17 15:29] LABS: ALB/GLOB Ratio 0.8 RATIO (0.9-2.4); AST(SGOT) 13 U/L (15-37); Alanine Aminotransfer ALT/SGPT 18 U/L (13-56); Albumin, Serum 3.1 g/dL (3.2-5.0); Alkaline Phosphatase 122 U/L (45-117); Anion Gap 4 (5-15); BUN 28 mg/dL (7-18); BUN/Creat Ratio 17.4 RATIO (10-20); Chloride 110 mmol/L (98-107); Cholesterol 182 mg/dL (200); Creatinine, Serum 1.61 mg/dL (0.55-1.02); EST Glomerular Filtration Rate 33 mL/min (>60); Est Glom Filt Rate - Afr Amer 40 mL/min (>60); Globulin 3.8 g/dL (2.2-4.2); Glucose 82 mg/dL (74-106); High Density Lipoprotein 70 mg/dL; Magnesium 2.5 mg/dL (1.6-2.6); Potassium 4.2 mmol/L (3.5-5.1); Protein, Total 6.9 g/dL (6.4-8.2); Sodium Level 142 mmol/L (136-145); Triglycerides 49 mg/dL; Very Low Density Lipoprotein 10 mg/dL (5-40)
== END | disposition home or self-care (01) ==
LOC: MFPLAB 12:14
PROVIDERS: Family Medicine; PCP Family Medicine; Visit Provider Family Medicine
DX: M79.645 Pain in left finger(s) (principal); I10 Essential (primary) hypertension; E55.9 Vitamin D deficiency, unspecified; E78.00 Pure hypercholesterolemia, unspecified
CPT/HCPCS: 36415; 80053; 80061; 82306; 83735; 85025; 85652

== ENCOUNTER → 2020-04-18 | Outpatient (CLI) | payer MEDICARE, OTHER, MEDICAID, SELFPAY ==
[2020-01-08 13:01] VITALS: BMI 43.0
--- NOTE | 2020-04-18 13:50 | RAD_ITS ---
STUDY: X-RAY - LEFT KNEE REASON FOR EXAM: Female, 74 years old. Left knee pain after recent fall, surgery was several years ago TECHNIQUE: 4 view(s) of the knee. COMPARISON: Comparison is made with prior examination dated February 27, 2020. FINDINGS: Normal visualized distal femur. Normal visualized proximal tibia and fibula. Normal proximal tibiofibular articulation. The patient is status post left total knee replacement. This is unchanged. Small joint effusion. RAD/Knee 4 or More Views IMPRESSION: Status post total knee replacement. There is good alignment. Small joint effusion. Electronically Signed: Duy Lopez, at 15:14 EDT , Service support ,
[2020-04-18 18:00] LABS: Absolute Lymphocyte Count 2.02 X10^3/uL (0.83-4.51); Absolute Neutrophil Count 2.4 X10^3/uL (2.0-7.7); Basophil# 0.04 X10^3/uL; Basophil% 0.8 % (0-1); Hematocrit 37.1 % (37-47); Hemoglobin 11.5 g/dL (12.0-15.0); Lymphocyte # 2.02 X10^3/ul (4.0); Lymphocyte % 40.1 % (19-41); Mean Corpuscular Hgb 29.5 pg (27.0-32.0); Mean Corpuscular Volume 95.1 fL (81-99); Mean Platelet Vol. 10.2 fl (6.2-12.0); Monocyte# 0.46 X10^3/uL; Monocyte% 9.1 % (0-10); NRBC Flagged by Analyzer 0 % (0-5); Neutrophil # 2.41 X10^3/uL (2.7-7.7); Neutrophil % 47.8 % (47-70); Platelet Count 268 K/mm3 (150-450); RBC Distribution Width CV 14.3 % (11.6-14.6); RBC Distribution Width SD 48.7 fl (35.1-43.9)
[2020-04-18 18:15] LABS: Vitamin D,25 Hydroxy 37.7 ng/mL
[2020-04-18 18:19] LABS: ALB/GLOB Ratio 0.7 RATIO (0.9-2.4); AST(SGOT) 16 U/L (15-37); Alanine Aminotransfer ALT/SGPT 18 U/L (13-56); Albumin, Serum 3.1 g/dL (3.2-5.0); Alkaline Phosphatase 113 U/L (45-117); Anion Gap 5 (5-15); BUN 27 mg/dL (7-18); BUN/Creat Ratio 15.8 RATIO (10-20); Calcium,Total 9.1 mg/dL (8.5-10.1); Chloride 107 mmol/L (98-107); Cholesterol 181 mg/dL (200); Creatinine, Serum 1.71 mg/dL (0.55-1.02); EST Glomerular Filtration Rate 31 mL/min (>60); Est Glom Filt Rate - Afr Amer 37 mL/min (>60); Globulin 4.2 g/dL (2.2-4.2); Glucose 84 mg/dL (74-106); High Density Lipoprotein 67 mg/dL; Magnesium 2.4 mg/dL (1.6-2.6); Phosphorus 3.4 mg/dL (2.5-4.9); Potassium 4.3 mmol/L (3.5-5.1); Protein, Total 7.3 g/dL (6.4-8.2); Sodium Level 141 mmol/L (136-145); Triglycerides 73 mg/dL; Very Low Density Lipoprotein 15 mg/dL (5-40)
[2020-04-21 12:08] LABS: Vitamin B12 505 pg/mL (211-911)
[2020-04-21 12:15] LABS: Ferritin 47 ng/mL (8-252); Iron 74 ug/dL (50-170); Iron Binding Capacity,Total 298 ug/dL (250-450); PERCENT IRON SATURATION 24.8 % (15.0-55.0)
== END | disposition home or self-care (01) ==
LOC: MTRAD 13:49
PROVIDERS: Internal Medicine Nephrology; PCP Family Medicine; Referring Provider Family Medicine; Visit Provider Family Medicine
DX: M25.562 Pain in left knee (principal); I10 Essential (primary) hypertension; E55.9 Vitamin D deficiency, unspecified; D64.9 Anemia, unspecified; E78.00 Pure hypercholesterolemia, unspecified
CPT/HCPCS: 36415; 73564; 80053; 80061; 82306; 82607; 82728; 82746; 83540; 83550; 83735; 84100; 85025

== ENCOUNTER → 2020-04-22 12:39 | Outpatient (CLI) | payer MEDICARE, OTHER, MEDICAID, SELFPAY ==
[2020-01-08 13:01] VITALS: BMI 43.0
[2020-04-22 15:42] LABS: Vitamin B12 487 pg/mL (211-911)
[2020-04-22 15:46] LABS: Ferritin 42 ng/mL (8-252); Iron 71 ug/dL (50-170); Iron Binding Capacity,Total 282 ug/dL (250-450)
== END ==
PROVIDERS: PCP Family Medicine; Referring Provider Family Medicine; Visit Provider Family Medicine
DX: D64.9 Anemia, unspecified (principal)
CPT/HCPCS: 36415; 82607; 82728; 82746; 83540; 83550

== ENCOUNTER → 2020-05-30 | Outpatient (CLI) | payer MEDICARE, OTHER, MEDICAID, SELFPAY ==
[2020-04-30 07:39] VITALS: BMI 43.0
--- NOTE | 2020-05-30 13:46 | ART_ITS ---
Reason For Study: Claudication Procedure A bilateral lower extremity continuous wave Doppler with analog waveform analysis and ankle brachial indexes. Exam performed with exercise. Left Segmental Pressures Left brachial= 167mmHg. Left posterior tibial artery = 195mmHg. Left dorsalis pedis artery = 180mmHg. The left dorsalis pedis waveforms are triphasic. The left posterior tibial artery waveforms are triphasic. Right Segmental Pressures Right brachial= 171mmHg. Right posterior tibial artery = 195mmHg. Right dorsalis pedis artery = 191mmHg. The right dorsalis pedis waveforms are triphasic. The right posterior tibial artery waveforms are triphasic. Indices The right ankle brachial index by the dorsalis pedis is 1.12. The right ankle brachial index by the posterior tibial artery is 1.14. The right post exercise ankle brachial index is 1.03. The left ankle brachial index by the dorsalis pedis is 1.05. The left ankle brachial index by the posterior tibial artery is 1.14. The left post exercise ankle brachial index is 1.16. Interpretation Summary Triphasic Doppler waveforms are noted at ankle level bilaterally. Resting ankle-brachial indices are normal bilaterally. The patient ambulated for 2 minutes, following which ankle pressures augmented bilaterally, which is a normal physiological response. There is no evidence of significant arterial occlusive disease in the lower extremities bilaterally. Ordering Physician: Lazaro Yañez Referring Physician: Lazaro Yañez Performed By: Nevaeh Garcia RVT
== END | disposition home or self-care (01) ==
LOC: CVS 13:41
PROVIDERS: PCP Family Medicine; Referring Provider Family Medicine; Visit Provider Family Medicine
DX: I73.9 Peripheral vascular disease, unspecified (principal)
CPT/HCPCS: 93922

== ENCOUNTER → 2020-06-10 | Outpatient (CLI) | payer MEDICARE, OTHER, MEDICAID, SELFPAY ==
[2020-04-30 07:39] VITALS: BMI 43.0
[2020-06-17 20:07] LABS: QNTFERON TB Mitogen Value > 10.00 IU/mL (.); QNTFERON TB Nil Value 0.03 IU/mL (.); QNTFERON TB1+ Ag Value 0.05 IU/mL (.); QNTFERON TB2+ Ag Value 0.04 IU/mL (.)
[2020-06-17 20:58] LABS: Angiotensin Convert Enzyme 30 U/L (14-82); HLA B27 Negative (.); QNTIFERON TB Positive Criteria Negative (Negative)
== END | disposition home or self-care (01) ==
LOC: MFPLAB 11:22
PROVIDERS: PCP Family Medicine; Referring Provider Family Medicine; Visit Provider Ophthalmology
DX: H20.013 Primary iridocyclitis, bilateral (principal)
CPT/HCPCS: 36415; 81374; 82164; 86480

== ENCOUNTER → 2020-06-23 14:08 | Outpatient (CLI) | payer MEDICARE, OTHER, MEDICAID, SELFPAY ==
[2020-06-23 07:52] VITALS: BMI 43.0
--- NOTE | 2020-06-23 14:08 | RAD_ITS ---
STUDY: X-RAY - LEFT KNEE REASON FOR EXAM: Female, 74 years old. KNEE PAIN ONE YEAR POST OP TECHNIQUE: 4 view(s) of the knee. COMPARISON: Comparison is made with prior examination dated 04/18/2020. FINDINGS: Normal visualized distal femur. Normal visualized proximal tibia and fibula. Normal proximal tibiofibular articulation. The patient is status post total knee replacement. There is good alignment. Small residual joint effusion. RAD/Knee 4 or More Views IMPRESSION: Status post total knee replacement. There is good alignment. Small residual joint effusion. Electronically Signed: Duy Lopez, at 15:50 EDT , Service support ,
== END ==
PROVIDERS: PCP Family Medicine; Referring Provider Orthopaedic Surgery; Visit Provider Orthopaedic Surgery
DX: M25.562 Pain in left knee (principal)
CPT/HCPCS: 73564

== ENCOUNTER → 2020-08-19 | Outpatient (CLI) | payer MEDICARE, OTHER, MEDICAID, SELFPAY ==
[2020-06-23 07:52] VITALS: BMI 43.0
[2020-08-19 15:47] LABS: CRP < 2.90 mg/L (0.0-3.0)
[2020-08-19 16:55] LABS: Erythrocyte Sedimentation Rate 21 mm/hr (0-30)
== END | disposition home or self-care (01) ==
LOC: MFPLAB 13:56
PROVIDERS: PCP Family Medicine; Referring Provider Family Medicine; Visit Provider Family Medicine
DX: M79.7 Fibromyalgia (principal)
CPT/HCPCS: 36415; 85652; 86140

== ENCOUNTER → 2020-09-02 | Outpatient (CLI) | payer MEDICARE, OTHER, MEDICAID, SELFPAY ==
[2020-06-23 07:52] VITALS: BMI 43.0
--- NOTE | 2020-09-02 16:55 | CT_ITS ---
STUDY: CT LEFT HAND WITHOUT CONTRAST REASON FOR EXAM: Female, 75 years old. LEFT HAND FOREIGN BODY RADIATION DOSAGE (If Supplied By Facility): CTDIvol = ( 24.58 ) mGy, DLP = ( 609.77 ) mGycm TECHNIQUE: Transaxial CT imaging of the hand was performed. Sagittal and coronal images were reconstructed. Individualized dose optimization techniques were used for this CT. COMPARISON: None. FINDINGS: Normal visualized radius and ulna. Normal radiocarpal articulation. Normal distal radioulnar joint. There are cystic regions of the scaphoid and lunate. Normal carpal articulations There is degenerative arthrosis of the carpometacarpal (CMC) articulation of the thumb. Normal second through fifth carpometacarpal joints. Normal metacarpi. Normal metacarpophalangeal joint of the thumb. Normal interphalangeal joint of the thumb. Normal proximal and distal phalanges of the thumb. There is degenerative arthrosis of the metacarpophalangeal (MCP) joints. There is mild articular joint space narrowing of the proximal and distal interphalangeal joints of the second through fifth fingers, but without erosive changes or periarticular soft tissue swelling. Normal phalanges of the second through fifth fingers. The soft tissue structures are unremarkable. There is no radiopaque foreign body. There is no acute fracture. CT/Extremity Upper without Contra IMPRESSION: Degenerative change. No fracture or foreign body. Electronically Signed: Rory Mata MD at 22:46 EDT , Service support ,
== END | disposition home or self-care (01) ==
LOC: CT 16:47
PROVIDERS: PCP Family Medicine; Referring Provider Family Medicine; Visit Provider Family Medicine
DX: S60.559A Superficial foreign body of unspecified hand, initial encounter (principal)
CPT/HCPCS: 73200

== ENCOUNTER → 2020-09-15 08:30 | Outpatient (CLI) | payer OTHER, MEDICAID, MEDICARE, SELFPAY ==
[2020-06-23 07:52] VITALS: BMI 43.0
== END ==
PROVIDERS: PCP Family Medicine; Visit Provider Registered Nurse
DX: J01.90 Acute sinusitis, unspecified (principal)
CPT/HCPCS: 87635; U0003

== ENCOUNTER → 2020-09-19 11:15 | Outpatient (CLI) | payer OTHER, MEDICARE, MEDICAID, SELFPAY ==
[2020-06-23 07:52] VITALS: BMI 43.0
--- NOTE | 2020-09-19 11:21 | RAD_ITS ---
STUDY: X-RAY CHEST REASON FOR EXAM: Female, 75 years old. acute bronchitis -- cough and throat swelling and pain last week TECHNIQUE: Frontal and lateral views of the chest COMPARISON: 03 October 2019 FINDINGS: The lungs are clear and expanded. There is no demonstrated pleural abnormality. Normal size heart. Normal mediastinum and leonor. Normal visualized pulmonary arteries. Normal visualized aortic arch and descending thoracic aorta. Normal visualized thoracic spine. Normal visualized ribs, clavicles, and shoulders. There is no demonstrated abnormality of the visualized soft tissue structures of the upper abdomen. RAD/Chest PA and Lateral IMPRESSION: Normal x-ray examination of the chest. Electronically Signed: Nancy Armenta, at 17:30 EST Tel , Service support ,
== END ==
PROVIDERS: PCP Family Medicine; Referring Provider Family Medicine; Visit Provider Family Medicine
DX: J20.9 Acute bronchitis, unspecified (principal)
CPT/HCPCS: 71046

== ENCOUNTER → 2020-09-30 09:32 | Outpatient (CLI) | payer MEDICARE, OTHER, MEDICAID, SELFPAY ==
[2020-04-30 07:39] VITALS: BMI 43.0
[2020-06-23 07:52] VITALS: BMI 43.0
--- NOTE | 2020-09-30 09:06 | NM_ITS ---
CLINICAL: 75-year-old female with reported history of painful left knee arthroplasty, operated approximately 2 years previous with recent traumatic fall. LIMITED 99m Tc MDP THREE PHASE BONE SCINTIGRAPHY COMPARISON: Plain film radiograph report left knee 06/23/2020 FINDINGS: Following the intravenous administration of 25.0 mCi of 99m Tc MDP, three-phase bone acquisitions of the knee articulations reveal: 1. The flow and immediate static blood pool acquisitions demonstrate symmetric arterial phase distribution of the radiopharmaceutical. Subtle venous hyperemia is manifest in the region of the right patella. 2. Delayed images depict intense increased tracer uptake visualized in the right patella corresponding to the blood pool changes. 3. Facilitated radiopharmaceutical distribution is observed in the lateral femoral and medial-lateral tibial components of the symptomatic left knee arthroplasty. 4. Focal increased tracer concentration appears evident in the medial femoral compartment of the right knee. 5. The remaining limited skeletal structures are scintigraphically unremarkable. NM/Bone Scan Three Phase IMPRESSION: 1. The increase in radiopharmaceutical concentration defined on the blood pool and late projections in the region of the right patella likely represents trauma fracture. Plain film radiography correlation is recommended. 2. Enhanced radiotracer uptake visualized in the femoral and tibial components of the symptomatic left knee prosthesis is consistent with a high likelihood of loosening in the setting of operative intervention > 2 years prior to the current presentation. If an infectious etiology is a diagnostic consideration, correlation with labeled leukocyte imaging is recommended. 3. Degenerative arthritis appears expressed in the right knee as defined above. Electronically Signed: Clint Mendoza DO at 23:24 EST Tel , Service support ,
[2020-09-30 09:44] LABS: Lyme Ab Screen Interpretation REF LAB
[2020-09-30 10:14] LABS: Erythrocyte Sedimentation Rate 48 mm/hr (0-30)
[2020-09-30 10:42] LABS: PTHIN 174.1 pg/mL (18.4-80.1); Vitamin D,25 Hydroxy 36.5 ng/mL
[2020-09-30 11:23] LABS: Protein, Urine (Random) 32.4 mg/dL (<11.9); Protein:Creat Ratio 118 mg/g CRE (0-200)
[2020-09-30 11:24] LABS: ALB/GLOB Ratio 0.8 RATIO (0.9-2.4); AST(SGOT) 11 U/L (15-37); Alanine Aminotransfer ALT/SGPT 17 U/L (13-56); Albumin, Serum 3.1 g/dL (3.2-5.0); Alkaline Phosphatase 111 U/L (45-117); Anion Gap 3 (5-15); BUN 25 mg/dL (7-18); BUN/Creat Ratio 14.3 RATIO (10-20); Chloride 109 mmol/L (98-107); Cholesterol 172 mg/dL (200); Creatinine, Serum 1.75 mg/dL (0.55-1.02); EST Glomerular Filtration Rate 30 mL/min (>60); Est Glom Filt Rate - Afr Amer 36 mL/min (>60); Globulin 3.9 g/dL (2.2-4.2); Glucose 91 mg/dL (74-106); High Density Lipoprotein 64 mg/dL; Phosphorus 3.7 mg/dL (2.5-4.9); Potassium 4.2 mmol/L (3.5-5.1); Sodium Level 142 mmol/L (136-145); Triglycerides 73 mg/dL; Very Low Density Lipoprotein 15 mg/dL (5-40)
[2020-09-30 11:45] LABS: CRP < 2.90 mg/L (0.0-3.0); Rheumatoid Factor < 10.0 IU/mL (<15)
[2020-09-30 12:33] LABS: Absolute Lymphocyte Count 2.04 X10^3/uL (0.83-4.51); Absolute Neutrophil Count 1.9 X10^3/uL (2.0-7.7); Basophil# 0.03 X10^3/uL; Basophil% 0.7 % (0-1); Eosinophil# 0.08 X10^3/uL; Eosinophils% 1.8 % (0-5); Hematocrit 37.7 % (37-47); Hemoglobin 11.9 g/dL (12.0-15.0); Lymphocyte # 2.04 X10^3/ul (4.0); Lymphocyte % 44.8 % (19-41); Mean Corp Hgb Conc 31.6 g/dL (32-36); Mean Corpuscular Hgb 29.7 pg (27.0-32.0); Mean Platelet Vol. 9.9 fl (6.2-12.0); Monocyte# 0.46 X10^3/uL; Monocyte% 10.1 % (0-10); NRBC Flagged by Analyzer 0 % (0-5); Neutrophil # 1.93 X10^3/uL (2.7-7.7); Neutrophil % 42.4 % (47-70); Platelet Count 289 K/mm3 (150-450); RBC Distribution Width CV 13.6 % (11.6-14.6); RBC Distribution Width SD 46.9 fl (35.1-43.9); Red Blood Count 4.01 M/mm3 (4.2-5.4); White Blood Count 4.6 K/mm3 (4.4-11.0)
[2020-10-01 15:10] LABS: ANTINUCLEAR ANTIBODIES DIRECT Negative (Negative)
[2020-10-06 14:25] LABS: CCP IgG Antibodies 12 units (0-19); HLA B27 Negative (.); Lyme Scn Total Ab w/Rflx <0.91 ISR (0.00-0.90)
== END ==
PROVIDERS: Orthopaedic Surgery; PCP Family Medicine; Visit Provider Internal Medicine Nephrology
DX: M19.041 Primary osteoarthritis, right hand (principal); M19.042 Primary osteoarthritis, left hand; R07.9 Chest pain, unspecified; E55.9 Vitamin D deficiency, unspecified; E21.3 Hyperparathyroidism, unspecified; E78.00 Pure hypercholesterolemia, unspecified; N18.30 Chronic kidney disease, stage 3 unspecified; Z96.652 Presence of left artificial knee joint
CPT/HCPCS: 36415; 78315; 80053; 80061; 81374; 82306; 82570; 83970; 84100; 84156; 85025; 85652; 86038; 86140; 86200; 86431; 86618

== ENCOUNTER → 2020-10-20 12:40 | Outpatient (CLI) | payer MEDICARE, OTHER, MEDICAID, SELFPAY ==
[2020-06-23 07:52] VITALS: BMI 43.0
--- NOTE | 2020-10-20 12:42 | BI_ITS ---
MAMMOGRAPHY - BILATERAL SCREENING REASON FOR EXAM: Female, 75 years old. Routine annual screening examination. PERTINENT HISTORY: Non-contributory. TECHNIQUE: Digital bilateral breast santos (3D mammographic acquisition) in the CC and MLO projections. 2-D mediolateral oblique (MLO) and craniocaudad (CC) views of both breasts were obtained. CAD: Full Field Digital Mammography with Computer Added Detection was performed. COMPARISON: Comparison is made with prior study dated 10/09/2019 and 09/21/2018. FINDINGS: Breast Composition: The breasts are almost entirely fatty. There are no dominant masses or suspicious calcifications. Stable benign-appearing bilateral axillary lymph nodes. No other significant abnormalities are identified. There has been no significant change since the prior study. BI/SCREEN MAMM (CAD) W/SANTOS BILAT IMPRESSION: Stable bilateral screening mammogram. Yearly follow-up mammogram recommended. (A) ASSESSMENT CATEGORY: BIRADS Category 2: Benign. A letter regarding these results will be sent to the patient by the facility within 30 days. Approximately 10% of breast cancers are not detected by mammography. A normal mammogram should not delay biopsy of a clinically suspicious abnormality. [id number] Electronically Signed: Duy Lopez, at 14:26 EST , Service support ,
== END ==
PROVIDERS: PCP Family Medicine; Referring Provider Family Medicine; Visit Provider Family Medicine
DX: Z12.31 Encounter for screening mammogram for malignant neoplasm of breast (principal)
CPT/HCPCS: 77063; 77067

== ENCOUNTER → 2020-10-29 11:37 | Outpatient (CLI) | payer MEDICARE, OTHER, MEDICAID, SELFPAY ==
[2020-10-29 12:51] LABS: Albumin, Serum 3.3 g/dL (3.2-5.0); BUN 21 mg/dL (7-18); BUN/Creat Ratio 13.3 RATIO (10-20); Calcium,Total 9.1 mg/dL (8.5-10.1); Chloride 107 mmol/L (98-107); Creatinine, Serum 1.58 mg/dL (0.55-1.02); EST Glomerular Filtration Rate 34 mL/min (>60); Est Glom Filt Rate - Afr Amer 41 mL/min (>60); Glucose 92 mg/dL (74-106); Phosphorus 3.5 mg/dL (2.5-4.9); Potassium 4.4 mmol/L (3.5-5.1); Sodium Level 141 mmol/L (136-145)
== END ==
PROVIDERS: PCP Family Medicine; Visit Provider Internal Medicine Nephrology
DX: N18.30 Chronic kidney disease, stage 3 unspecified (principal)
CPT/HCPCS: 36415; 80069

== ENCOUNTER 2020-10-31 05:52 | Day surgery (SDC) | payer MEDICARE, OTHER, MEDICAID, SELFPAY ==
[2020-06-23 07:52] VITALS: BMI 43.0
--- NOTE | 2020-10-31 06:01 | HP_ITS ---
I have re-examined the patient. There are no clinical changes since date of exam. Intake Intake Visit Reasons: Left hand Accompanied by: Self Is patient in pain?: Yes Pain scale (1-10): 9 Allergies codeine Adverse Reaction (Verified 10/07/20 13:27) Nausea latex Adverse Reaction (Verified 10/07/20 13:27) Rash tramadol [From Ultra] Adverse Reaction (Verified 10/07/20 13:27) Itching Medications Verapamil HCl 360 mg PO DAILY 07/16/16 [History Confirmed 10/07/20] Latanoprost 0.005% [Xalatan Opthalmic] 1 drp OPHTHALMIC HS bottle 03/22/18 [Rx Confirmed 10/07/20] Timolol 0.5% [Timoptic] 1 drp EACH EYE BID opth.btl 03/22/18 [Rx Confirmed 10/07/20] Atorvastatin Calcium [Lipitor] 20 mg PO QHS 07/11/18 [History Confirmed 10/07/20] Pantoprazole Sodium [Protonix] 40 mg PO DAILY 07/11/18 [History Confirmed 10/07/20] Albuterol Inhaler [Ventolin Hfa] 2 puff INHALATION Q4H PRN PRN #1 inhaler 10/03/19 [Rx Confirmed 10/07/20] Benzonatate 100 mg PO 10/03/19 [History Confirmed 10/07/20] cyclosporine 0.05 % eye drops in a dropperette drp OPHTHALMIC 10/07/20 [History Confirmed 10/07/20] PFSH Medical History (Updated 10/04/19 @ 00:00 by George Reyes) High cholesterol (Chronic) Hypertension (Chronic) Surgical History (Updated 07/27/18 @ 14:49 by Claudia Arreaga) h/o right hand surgery (Acute) H/O arthroscopy of left knee (Inactive) H/O left knee replacement (Inactive) h/o left shoulder arthroscopy (Inactive) HPI Left hand: Surgical H&P: Yes Details: Parts of this documentation were recorded by a scribe, this documentation accurately reflects the service provided and the decisions made by me, Dr. Florence Finley, DO 10/07/20 1322. CLAUDIA REED is a 75 year old F here today for follow up with swelling of her left hand and review her CT scan from 09/02/2020. Onset: cannot pinpoint. Has c/o third digit trigger finger of left hand and a cyst. Denies d/c or drainage from her cyst. Denies wearing a brace or tapping at [facility]. Reports numbness, stiffness and tingling. Pain is rated: 9/10 from the pain scale. Reports it is tender to the touch. Denies taking anything OTC for pain relief. Last x-ray of her right hand on: 02/27/2020. [facility] and still feels like there is gravel is on the same finger that is also locking on her so we will do exploration and evaluate the locking as well as if there is any gravel or any debris in her hand. ROS Musc Reports system reviewed and no additional complaints, except as docu, Reports joint pain, Reports joint swelling, Reports numbness, Reports stiffness, Reports tingling Skin/Breast Denies system reviewed and no additional complaints, except as docu, Denies dry skin, Denies redness, Denies lesions, Denies new lesions, Denies non-healing lesions, Denies itching, Denies rash, Denies skin ulcer, Denies sores, Denies wounds Neuro Yes system reviewed and no additional complaints, except as docu, Yes numbness, Yes radiating pain, Yes tingling Ortho Exam General General: Yes no acute distress Neurologic: Yes alert, Yes oriented x3 Psychologic: Yes reasonable and appropriate Right Wrist/Hand Skin/Wound: No Swelling, No Ecchymosis Left Wrist/Hand Skin/Wound: No Swelling, No Ecchymosis, Yes capillary refill normal, No erythema Motor: EPL: 5, FDP-2: 5, 1st Dorsal Interosseous: 5, APB: 5 Sensation: Radial: I, Ulnar: I, Median: I WRIST: palpable mass of the left hand Assessment & Plan Problems 1. Foreign body (FB) in soft tissue M79.5 Plan Personally reviewed patients labs. Patient educated that she can have swelling of her hands is she has issues with her kidneys or protein in the urine. Educated that she has what appears to be a foreign body over the left 2nd and 3rd fingers. Reviewed the pre-operative plans with the patient. Risks and benefits of the procedure were fully explained, including but not limited to infection, neurovascular injury, continued pain, arthritis, stiffness, need for further surgery, re-injury, DVT, PE, general risks of anesthesia, and loss of limb or life. The patient understands all the risks and does wish to proceed with written consent for left wolfe 2nd and 3rd finger exploration. We will add the patient on the surgery schedule for a tuesday. We discussed the current risk associated COVID-19. While it is understood that there is a community spread of COVID 19 the risk of ashly COVID-19 while at [facility] is very low, however, the risk cannot be completely mitigated because of the community spread of the disease. We discussed in detail the risk of exposure to and or potential harm posed by the COVID-19 virus with having a surgery/procedure at this time versus the risk of delaying the surgery/procedure. Is not possible to know either the risk of delaying the surgery procedure or chance of getting an infection with perfect accuracy, but a joint decision was made to proceed at this time with a schedule surgery/procedure as indicated on the consent form. Patient was notified that we will need to comply with any screening or testing [facility] wishes to perform or that surgery may be delayed for any positive results. Follow up post op or sooner if pain, swelling, numbness or associated symptoms, or concerns develop. All questions answered. Patient in agreement of plan. Coding Level of Care Code Off vis,est,level 4 Diagnoses Foreign body (FB) in soft tissue M79.5
[2020-10-31 06:13] VITALS: BP 137/80; PULSE 76; RESP 18; TEMP 36.2; O2SAT 99; BMI 44.6
[2020-10-31] MEDS: Lactated Ringers 1,000 ML 100 ML IV (06:25)
--- NOTE | 2020-10-31 07:30 | DCINST_ITS ---
Discharge Diet: No Restrictions - keep dressing clean, dry, and intact; may change dressings if gets soiled, call with concerns, follow up in 2 weeks Discharge Activity: May Not Drive May shower in (days): 1 Ice area for (Minutes): 20 - Every hour while awake. Weight Bearing Status: Weight bearing as tolerated Keep extremity elevated above heart level: Operative Extremity Call your doctor if your incision/area has: Continuous Slow Oozing, Sudden Increased Bleeding, Increased Pain/ Swelling, Increased Redness, Foul Smelling Discharge Call your doctor if you observe: Fever of 101 or Higher, Coldness, Increased Pain, Numbness or Tingling, Change in Color, Calf discomfort Allergies/Adverse Reactions: Allergies codeine Adverse Reaction (Verified 10/23/20 15:11) Nausea latex Adverse Reaction (Verified 10/23/20 15:11) Rash tape causes blisters tramadol [From Ultram] Adverse Reaction (Verified 10/23/20 15:11) Itching Medications to take at Discharge Verapamil HCl 360 mg PO DAILY 07/16/16 Latanoprost 0.005% [Xalatan Opthalmic] 1 drp OPHTHALMIC HS bottle 03/22/18 Atorvastatin Calcium [Lipitor] 20 mg PO QHS 07/11/18 Pantoprazole Sodium [Protonix] 40 mg PO DAILY 07/11/18 Albuterol Inhaler [Ventolin Hfa] 2 puff INHALATION Q4H PRN PRN #1 inhaler 10/03/19 cyclosporine 0.05 % eye drops in a dropperette 1 drp OPHTHALMIC BID 10/07/20 Brimonidine Tartrate/Timolol [Combigan Eye Drops] 1 drp OPHTHALMIC DAILY 10/23/20 Cholecalciferol (Vitamin D3) [Vitamin D3] 2,000 unit PO DAILY 10/23/20 Ferrous Gluconate 325 mg PO DAILY@0800 10/23/20 traMADol [Ultram] 50 mg PO Q6H PRN PRN 5 Days #20 tablet 10/31/20 The following prescriptions were given: traMADol [Ultram] 50 mg PO Q6H PRN PRN 5 Days #20 tablet PRN Reason: Pain 1-10 Or Fever Transmission Status: Sent to [facility] Primary Care Physician: Lazaro Yañez MD [Primary Care Provider] - Test Results: Test results from this visit will be discussed in further detail at your follow- up appointment, if applicable. Please Follow Up With: Florence Finley, DO - [phone]
--- NOTE | 2020-10-31 07:30 | LOO_PTH ---
PATIENT: CLAUDIA REED LOC: [facility] U#:[id number] AGE/SX: 75/F ROOM: RE10/31/[address]: Dr. Florence Finley DO : 1945 BED: DIS: 10/31/2020 SPEC #: [id number] RECD: 10/31/20 11:48 STATUS: CLIFF BERTRAM #: [id number] KEVON: 10/31/20 07:[address]: Florence Finley DEPT: SURGICAL PATHOLOGY RECD BY: Lexus Epstein ENTERED: 10/31/20 13:25 SP TYPE: LOOSE BODY OTHR DR: Dr. Lazaro Yañez MD Tissues: LOOSE BODY Procedures: Surgery Specimen Level III HEADER OPERATION: Trigger finger release third left finger, wound exploration PRE-OP DIAGNOSIS: Foreign body in soft tissue TISSUE SUBMITTED: Loose body left hand MICROSCOPIC DIAGNOSIS Loose body left hand: A piece of fibroconnective and fibrovascular tissue with reactive changes. KAT:mariah 11/03/20 MICROSCOPIC DESCRIPTION Slides are reviewed. GROSS DESCRIPTION Received in fixative is one container labeled with the patient's name and designated loose body left hand. The specimen consists of a piece of harden, indurated tissue measuring 0.7 x 0.2 x 0.1 cm. The entire specimen is submitted in one cassette. / KAT:mariah 10/31/20 TC:5 CPT: 79850
--- NOTE | 2020-10-31 07:31 | OP.PCM_ITS ---
Report of Operation Date of Procedure: 10/31/20 Pre-Operative Diagnosis: left hand painful nodule, locking third finger Post-Operative Diagnosis: same Surgery/Procedure Performed:: left hand wound exploration, nodule removal of A1 denise, a1 denise release third finger Type of Anesthesia:: General Anesthesiologist: Beka Roman Specimen's removed: nodule attached to third finger a1 denise Estimated Blood Loss (mL): none Fluids Replaced: 1000ml lr Description of Procedure: Preop note Patient is 75-year-old female with continued left hand third locking after a fall at [facility] where she states she had gravel in her hand is unsure of she is now feeling a palpable nodule in her third finger whether not this is from gravel or some other foreign body. Scans did not show anything aggressive and with a locking meniscus discussion was made to have a third finger A1 denise release and expiration of incision. Risk benefits alternatives surgery discussed with him family with patient. Risk include but not limited to blood loss, blood clot, infection, neurovascular, failure procedure, loss of life and loss of limb. Patient is aware would like proceed with left hand wound and incision exploration and A1 denise release of the third finger Dragon Yeny Detnon Covid We discussed the current risk associated COVID-19. While it is understood that there is a community spread of COVID 19 the risk of ashly COVID-19 while at [facility] is very low, however, the risk cannot be completely mitigated because of the community spread of the disease. We discussed in detail the risk of exposure to and or potential harm posed by the COVID-19 virus with having a surgery/procedure at this time versus the risk of delaying the surgery/procedure. Is not possible to know either the risk of delaying the surgery procedure or chance of getting an infection with perfect accuracy, but a joint decision was made to proceed at this time with a schedule surgery/procedure as indicated on the consent form. Patient was notified that we will need to comply with any screening or testing [facility] wishes to perform or that surgery may be delayed for any positive results. Operative note Patient seen and examined preoperative holding area. Left third finger was marked. We also palpated the nodule that was marked as well. Patient brought to the operating room and placed supine on the operating table. Signed, anesthesia, antibiotics were administered. Left hand was prepped and draped usual sterile technique with a tourniquet around her upper arm. All bony promises well-padded SCDs placed on bilateral lower extremity. We marked out our incision for her upper nails incision for a flexor wound exploration. Left arm was then elevate exsanguinated tourniquet was raised to pressures pressure of 250 torr. Timeout was performed. We then made a standard incision over top of the A1 denise extended proximally distally for further evaluation of the soft tissue structures. We then used a 15 blade to cut the skin and dissected down to carefully we did palpate the nodule that was marked out preoperatively and this was excised and sent to pathology for further evaluation. Was attached to the denise most likely a cystic nodule. The A1 denise was then released. We then brought the tendons out of the incision and flex and ascended the finger to ensure there was no further triggering which there was none. The incision was irrigated with copious muscle sterile saline. Incision skin was closed with interrupted 4-0 nylon stitches. Tourniquet was deflated. Sterile dressings were applied. We also gave the patient a postop local block. Patient tolerated procedure well no no complications transferred recovery room in stable condition. Postoperative note Use hand as tolerated Pharmacy has prescription Discussed with daughter Call with increased pain numbness tingling or further issues arise [employer] disclaimer This note was generated with [employer] dictation software. It may contain incorrect words, spelling, and punctuation that were not noted in checking the note before signing.
[2020-10-31] MEDS: Cefazolin 2 GM in 0.9% Normal Saline 100 ML IV (08:11)
[2020-10-31] MEDS: Lidocaine 1% (20 ml mdv) 20 ML Vial (08:40)
[2020-10-31 09:00] VITALS: BP 123/71; BP 137/80; PULSE 70; RESP 16; TEMP 35.7; O2SAT 98
[2020-10-31 09:15] VITALS: BP 131/69; BP 137/80; PULSE 70; RESP 16; O2SAT 98
[2020-10-31 09:30] VITALS: BP 130/76; BP 137/80; PULSE 67; RESP 16; TEMP 35.8; O2SAT 98
--- NOTE | 2020-10-31 10:05 | SUR.PHASEII ---
PT. AWAKE, SITTING UP IN BED, EATING A SNACK. SHE REPORTS MINIMAL DISCOMFORT AND DECLINES ANYTHING FOR PAIN AT THIS TIME.
[2020-10-31 10:30] VITALS: BP 125/59; BP 137/80; PULSE 69; RESP 16; TEMP 36; O2SAT 99
== END 2020-10-31 11:34 | disposition home or self-care (01) ==
LOC: SDC 05:52 → AC 05:53
PROVIDERS: PCP Family Medicine; Referring Provider Orthopaedic Surgery; Visit Provider Orthopaedic Surgery
PROC: (CPT 26055; principal; 2020-10-31 07:20)
DX: M65.332 Trigger finger, left middle finger (principal); M79.642 Pain in left hand; R22.32 Localized swelling, mass and lump, left upper limb; I10 Essential (primary) hypertension; E78.00 Pure hypercholesterolemia, unspecified; K21.9 Gastro-esophageal reflux disease without esophagitis; D64.9 Anemia, unspecified; Z79.899 Other long term (current) drug therapy; Z20.828 Contact with and (suspected) exposure to other viral communicable diseases
CPT/HCPCS: 01810; 26055; 26160; 87426; 88304; J7120; J2405

== ENCOUNTER → 2020-11-18 11:56 | Outpatient (CLI) | payer MEDICARE, OTHER, MEDICAID, SELFPAY ==
[2020-11-18 15:43] LABS: Anion Gap 6 (5-15); BUN 26 mg/dL (7-18); BUN/Creat Ratio 16.1 RATIO (10-20); Calcium,Total 8.7 mg/dL (8.5-10.1); Chloride 109 mmol/L (98-107); Creatinine, Serum 1.61 mg/dL (0.55-1.02); EST Glomerular Filtration Rate 33 mL/min (>60); Est Glom Filt Rate - Afr Amer 40 mL/min (>60); Glucose 92 mg/dL (74-106); Potassium 4.3 mmol/L (3.5-5.1); Sodium Level 141 mmol/L (136-145)
[2020-11-19 10:05] LABS: PTHIN 163.2 pg/mL (18.4-80.1)
== END ==
PROVIDERS: PCP Family Medicine; Referring Provider Family Medicine; Visit Provider Family Medicine
DX: E21.3 Hyperparathyroidism, unspecified (principal)
CPT/HCPCS: 36415; 80048; 82330; 83970

== ENCOUNTER → 2020-11-24 14:06 | Outpatient (CLI) | payer MEDICARE, OTHER, MEDICAID, SELFPAY ==
[2020-11-24 13:34] VITALS: BMI 43.9
[2020-11-24 15:27] LABS: Pathologist Comment/Body Fluid May follow
[2020-11-24 15:40] LABS: Absolute Neutrophil Count 2.1 X10^3/uL (2.0-7.7); Basophil# 0.03 X10^3/uL; Basophil% 0.6 % (0-1); Eosinophil# 0.08 X10^3/uL; Eosinophils% 1.5 % (0-5); Hematocrit 37.7 % (37-47); Hemoglobin 12.1 g/dL (12.0-15.0); Lymphocyte % 48.4 % (19-41); Mean Corp Hgb Conc 32.1 g/dL (32-36); Mean Corpuscular Hgb 29.5 pg (27.0-32.0); Monocyte# 0.46 X10^3/uL; Monocyte% 8.9 % (0-10); NRBC Flagged by Analyzer 0 % (0-5); Neutrophil # 2.09 X10^3/uL (2.7-7.7); Neutrophil % 40.4 % (47-70); Platelet Count 277 K/mm3 (150-450); RBC Distribution Width CV 13.4 % (11.6-14.6); RBC Distribution Width SD 46.1 fl (35.1-43.9); White Blood Count 5.2 K/mm3 (4.4-11.0)
[2020-11-24 16:03] LABS: Body Fluid Mononuclear WBC # 0.451 10^3/uL; Body Fluid Mononuclear WBC % 65.8 %; Body Fluid Polynuclear WBC # 0.235 10^3/uL; Body Fluid Polynuclear WBC % 34.2 %; Body Fluid Total Cells Counted 0.712 10^3/ul; Red Cell Count/Body Fluid 0.006 10^6/ul; White Blood Count/Body Fluid 0.686 10^3/uL
[2020-11-24 16:10] LABS: Erythrocyte Sedimentation Rate 44 mm/hr (0-30)
[2020-11-24 16:21] LABS: Auto B Fluid Analyzer BKGD Ct COUNTS W/IN LIMITS (W/IN LIMITS); Source- Body Fluid OTHER
[2020-11-24 16:25] LABS: CRP < 2.90 mg/L (0.0-3.0)
[2020-11-24 16:47] LABS: Appearance/Body Fluid SL CLDY; Color/Body Fluid LT YEL
[2020-11-24 18:00] LABS: Source- Body Fluid SYNOVIAL
[2020-11-24 18:01] LABS: Body Fluid QC Type(s) BF1Q,BF2Q
[2020-11-24 18:14] LABS: Lymphocytes 56 %; Monocytes 42 %; Neutrophil (Segs) 2 %
[2020-11-24 19:10] LABS: Albumin, Serum 3.2 g/dL (3.2-5.0); BUN 22 mg/dL (7-18); BUN/Creat Ratio 13.9 RATIO (10-20); Calcium,Total 8.8 mg/dL (8.5-10.1); Chloride 109 mmol/L (98-107); Creatinine, Serum 1.58 mg/dL (0.55-1.02); EST Glomerular Filtration Rate 34 mL/min (>60); Est Glom Filt Rate - Afr Amer 41 mL/min (>60); Glucose 78 mg/dL (74-106); Phosphorus 3.4 mg/dL (2.5-4.9); Potassium 4.1 mmol/L (3.5-5.1); Sodium Level 141 mmol/L (136-145)
[2020-11-25 12:20] LABS: Pathologist Review Reviewed
== END ==
PROVIDERS: Orthopaedic Surgery; PCP Family Medicine; Referring Provider Family Medicine; Visit Provider Internal Medicine Nephrology
DX: M25.562 Pain in left knee (principal); R07.9 Chest pain, unspecified; N18.32 Chronic kidney disease, stage 3b; Z96.652 Presence of left artificial knee joint
CPT/HCPCS: 36415; 80069; 85025; 85652; 86140; 87070; 87075; 87205; 89050; 89060

== ENCOUNTER → 2020-12-24 | Outpatient (CLI) | payer MEDICARE, OTHER, MEDICAID, SELFPAY | END | disposition home or self-care (01) | PROVIDERS: PCP Family Medicine; Referring Provider Family Medicine; Visit Provider Family Medicine | DX: B34.9 Viral infection, unspecified (principal) | CPT/HCPCS: 87635; U0005; U0003 ==

== ENCOUNTER 2021-01-01 14:30 | Outpatient (RCR) | payer MEDICARE, OTHER, MEDICAID, SELFPAY ==
--- NOTE | 2020-12-03 10:45 | HP.OTEVAL ---
Patient's Visit Information CLAUDIA REED is a 75 year old F, referred to Occupational Therapy by Dr. Florence Finley DO, with a diagnosis of left A1 denise release 3rd finger. Date of Evaluation: 12/03/20 Occupational Therapist: Yanni Soliz, OTR/Maricarmen, CHT - Subjective This 75 year old female was seen for OT eval with dx of left third finger trigger finger. pt states she struggled with her trigger finger since february 2020. After increase pain and limited use of left hand due to triggering Pt under went A1 denise release third finger on 10/31/20. pt reports increase pain with use, limited ROM and scar sensitivity limiting use of left UE with ADLs and IADLs. pt would like to use left hand and decrease pain. - Pain left hand 4 Pain Intensity Range: 5 - ROM MP: left MF 0/80 right MF 0/90 PIP: left MF -15/80 right MF 0/95 ROM Comments: pt demo limited ability to form a composite fist 1 away. pt tender to touch - Strength Glass Wool Blanket Machine Feeder: left 10# left 40# Lateral Pinch: left 1# left 6# Tripod Pinch: left 2# unable - Sensation Sensation Comments: denies any change in sensation from sx - Quick DASH-Disab of Arm,Shoulder& Hand Quick DASH Score: 88.6350 - Goals Goal:: Pt will demo a left instructional systems specialist strength at 30# or greater to increase ind with ADLs and IADLs by d/c. pt will demo a increase in lateral and tripod pinch by 3# to increase pts ind. with FMS by d/c Goal:: pt will demo a increase in left MF PIP ext to -5 or less indicating full finger ext by d/c to increase pts ind with ADLs and iADL. pt will demo the ability to form a composite fist to hold small objects by d/c Goal:: pt will report left hand pain no greater than 2/10 with use of left hand by d/c Goal:: pt will demo understanding of scar mtg and desensitization by end of 2nd session to decrease scar adhesions - Rehabilitation General Assessment: pt is 4 weeks 5 days s/p left 3rd A1 denise release. Pt demo with a limited left hand functional grasp and limited full 3rd finger ext. Pt is touch sensitive and demo with hypertrophic scaring. Pt limited with ADls and IADls at this time and would benefit from skilled OT services 2x week for 4 weeks to return pt to PLOF. Today therapist ed. pt on PROM, AROM desensitization and scar mtg. pt given handouts and demo understanding of POC and agree to POC. Rehabilitation Potential: Good - Anticipated Interventions A/AAROM/PROM, Strengthening, Scar Care, Triggerpoint Release, Desensitization, Modalities, Ergonomic Education, Fine Motor Coord/Jose J - Visit Plan Frequency: 2x /Week Duration: 4 Weeks TEXT: Thank you for the opportunity to evaluate your patient. For Medicare and Medicare HMO plans, please review the plan of care and approve it. It will need to be FAXED BACK to us at [phone] for Medicare purposes. Please let me know if there are questions or concerns regarding this plan of care. Physician Signature: Date:
--- NOTE | 2021-02-26 09:50 | HP.OT.NRP ---
CLAUDIA REED was seen in my office for initial evaluation on 12/03/20. The following Plan of Care was established for this patient: Initial Frequency: 2x /Week Initial Duration: 4 Weeks Plan: cont PRE Anticipated Interventions: A/AAROM/PROM, Strengthening, Scar Care, Triggerpoint Release, Desensitization, Modalities, Ergonomic Education, Fine Motor Coord/Jose J This patient was last seen in our office 01/01/21. Pertinent comments regarding their Occupational therapy will appear below: pt was seen for 6 OT session. pt made gains in decreasing pain and increasing use- pt was to cont. with OT services but has not scheduled further apts since 01/01/21. pt d/c due to time lapse in services. At this point I will be discontinuing this patient from occupational therapy. I would be happy to see this patient again in the future if found appropriate by the physician. Thank you! Yanni Soliz, OTR/L, CHT
== END 2021-01-01 19:00 | disposition home or self-care (01) ==
LOC: OT 14:30
PROVIDERS: PCP Family Medicine; Referring Provider Orthopaedic Surgery; Visit Provider Orthopaedic Surgery
DX: Z47.89 Encounter for other orthopedic aftercare (principal)
CPT/HCPCS: 97035; 97110; 97140; 97166

== ENCOUNTER → 2021-02-18 11:20 | Outpatient (CLI) | payer MEDICARE, OTHER, MEDICAID, SELFPAY ==
[2020-11-24 13:34] VITALS: BMI 43.9
[2021-02-18 15:37] LABS: Albumin, Serum 3.5 g/dL (3.2-5.0); BUN 29 mg/dL (7-18); BUN/Creat Ratio 22.8 RATIO (10-20); Calcium,Total 9.2 mg/dL (8.5-10.1); Chloride 109 mmol/L (98-107); Creatinine, Serum 1.27 mg/dL (0.55-1.02); EST Glomerular Filtration Rate 43 mL/min (>60); Est Glom Filt Rate - Afr Amer 52 mL/min (>60); Glucose 97 mg/dL (74-106); Phosphorus 3.6 mg/dL (2.5-4.9); Potassium 4.4 mmol/L (3.5-5.1); Sodium Level 140 mmol/L (136-145)
== END ==
PROVIDERS: PCP Family Medicine; Referring Provider Family Medicine; Visit Provider Internal Medicine Nephrology
DX: N18.32 Chronic kidney disease, stage 3b (principal)
CPT/HCPCS: 36415; 80069

== ENCOUNTER → 2021-05-15 11:37 | Outpatient (CLI) | payer MEDICARE, OTHER, MEDICAID, SELFPAY ==
[2021-03-10 13:23] VITALS: BMI 43.9
--- NOTE | 2021-05-15 11:40 | RAD_ITS ---
STUDY: X-RAY CHEST REASON FOR EXAM: Female, 75 years old. ACUTE BRONCHITIS TECHNIQUE: PA and lateral views of the chest. COMPARISON: None. FINDINGS: The lungs are clear and expanded. There is no demonstrated pleural abnormality. There is mild cardiac enlargement. Normal mediastinum and leonor. Normal visualized pulmonary arteries. There is atherosclerotic calcification of the aortic arch with tortuosity. Normal visualized thoracic spine. Normal visualized ribs, clavicles, and shoulders. Large hiatal hernia. RAD/Chest PA and Lateral IMPRESSION: No acute cardiopulmonary process. No airspace consolidation. Electronically Signed: Vijay Patel MD ([place]) at 15:52 EDT , Service support ,
== END ==
PROVIDERS: PCP Family Medicine; Referring Provider Family Medicine; Visit Provider Family Medicine
DX: J20.9 Acute bronchitis, unspecified (principal)
CPT/HCPCS: 71046

== ENCOUNTER → 2021-06-16 11:15 | Outpatient (CLI) | payer MEDICARE, OTHER, MEDICAID, SELFPAY ==
[2021-03-10 13:23] VITALS: BMI 43.9
[2021-06-16 15:10] LABS: Erythrocyte Sedimentation Rate 26 mm/hr (0-30)
[2021-06-16 15:12] LABS: Absolute Lymphocyte Count 2.45 X10^3/uL (0.83-4.51); Absolute Neutrophil Count 3.7 X10^3/uL (2.0-7.7); Basophil# 0.03 X10^3/uL; Basophil% 0.4 % (0-1); Eosinophil# 0.08 X10^3/uL; Eosinophils% 1.2 % (0-5); Hemoglobin 12.1 g/dL (12.0-15.0); Lymphocyte # 2.45 X10^3/ul (0.83-4.51); Lymphocyte % 35.8 % (19-41); Mean Corpuscular Hgb 29.7 pg (27.0-32.0); Mean Corpuscular Volume 95.6 fL (81-99); Mean Platelet Vol. 9.8 fl (6.2-12.0); Monocyte# 0.58 X10^3/uL; Monocyte% 8.5 % (0-10); NRBC Flagged by Analyzer 0 % (0-5); Neutrophil # 3.68 X10^3/uL (2.7-7.7); Neutrophil % 53.7 % (47-70); Platelet Count 301 K/mm3 (150-450); RBC Distribution Width CV 13.6 % (11.6-14.6); RBC Distribution Width SD 48.4 fl (35.1-43.9); Red Blood Count 4.08 M/mm3 (4.2-5.4); White Blood Count 6.9 K/mm3 (4.4-11.0)
[2021-06-16 15:27] LABS: Vitamin D,25 Hydroxy 44.4 ng/mL
[2021-06-16 16:02] LABS: ALB/GLOB Ratio 0.8 RATIO (0.9-2.4); AST(SGOT) 11 U/L (15-37); Alanine Aminotransfer ALT/SGPT 20 U/L (13-56); Alkaline Phosphatase 90 U/L (45-117); Anion Gap 5 (5-15); BUN 23 mg/dL (7-18); BUN/Creat Ratio 15.5 RATIO (10-20); Calcium,Total 8.4 mg/dL (8.5-10.1); Chloride 107 mmol/L (98-107); Cholesterol 207 mg/dL (200); Creatinine, Serum 1.48 mg/dL (0.55-1.02); EST Glomerular Filtration Rate 36 mL/min (>60); Est Glom Filt Rate - Afr Amer 44 mL/min (>60); Globulin 3.7 g/dL (2.2-4.2); Glucose 66 mg/dL (74-106); High Density Lipoprotein 64 mg/dL; Phosphorus 3.3 mg/dL (2.5-4.9); Potassium 4.2 mmol/L (3.5-5.1); Protein, Total 6.7 g/dL (6.4-8.2); Rheumatoid Factor < 10.0 IU/mL (<15); Sodium Level 140 mmol/L (136-145); Thyroid Stim Hormone (TSH) 3.77 uIU/mL (0.358-3.74); Triglycerides 55 mg/dL; Very Low Density Lipoprotein 11 mg/dL (5-40)
[2021-06-17 09:36] LABS: PTHIN 109.3 pg/mL (18.4-80.1)
[2021-06-18 10:25] LABS: T4 Free Direct 0.93 ng/dL (0.76-1.46)
[2021-06-18 16:43] LABS: ANTINUCLEAR ANTIBODIES DIRECT Negative (Negative)
[2021-06-28 07:59] LABS: Anti-Thyroglobulin AB 1.8 IU/mL (0.0-0.9); Thyroglobulin RIA 7.6 ng/mL (.)
== END ==
PROVIDERS: PCP Family Medicine; Referring Provider Family Medicine; Visit Provider Family Medicine
DX: E78.00 Pure hypercholesterolemia, unspecified (principal); E21.3 Hyperparathyroidism, unspecified; E55.9 Vitamin D deficiency, unspecified; I12.9 Hypertensive chronic kidney disease with stage 1 through stage 4 chronic kidney disease, or unspecified chronic kidney disease; N18.30 Chronic kidney disease, stage 3 unspecified; M25.50 Pain in unspecified joint
CPT/HCPCS: 36415; 80053; 80061; 82306; 83970; 84100; 84432; 84439; 84443; 85025; 85652; 86038; 86376; 86431; 86800

== ENCOUNTER → 2021-07-30 15:42 | Outpatient (CLI) | payer MEDICARE, OTHER, MEDICAID, SELFPAY ==
[2021-07-30 17:58] LABS: Erythrocyte Sedimentation Rate 28 mm/hr (0-30)
[2021-07-30 18:49] LABS: CRP < 2.90 mg/L (0.0-3.0)
== END ==
PROVIDERS: PCP Family Medicine; Referring Provider Family Medicine
DX: Z96.652 Presence of left artificial knee joint (principal)
CPT/HCPCS: 36415; 85652; 86140

== ENCOUNTER → 2021-09-16 09:32 | Outpatient (CLI) | payer MEDICARE, OTHER, MEDICAID, SELFPAY | PROVIDERS: PCP Family Medicine; Referring Provider Family Medicine; Visit Provider Family Medicine | DX: R69 Illness, unspecified (principal) ==

== ENCOUNTER → 2021-09-22 11:38 | Outpatient (CLI) | payer MEDICARE, OTHER, MEDICAID, SELFPAY ==
[2021-09-22 13:02] LABS: BUN 24 mg/dL (7-18); BUN/Creat Ratio 13.8 RATIO (10-20); Calcium,Total 9.1 mg/dL (8.5-10.1); Chloride 110 mmol/L (98-107); Creatinine, Serum 1.74 mg/dL (0.55-1.02); EST Glomerular Filtration Rate 30 mL/min (>60); Est Glom Filt Rate - Afr Amer 36 mL/min (>60); Glucose 78 mg/dL (74-106); Phosphorus 3.5 mg/dL (2.5-4.9); Potassium 4.3 mmol/L (3.5-5.1); Sodium Level 142 mmol/L (136-145)
== END ==
PROVIDERS: PCP Family Medicine; Visit Provider Internal Medicine Nephrology
DX: N18.32 Chronic kidney disease, stage 3b (principal)
CPT/HCPCS: 36415; 80069

== ENCOUNTER → 2021-09-30 13:35 | Outpatient (CLI) | payer MEDICARE, OTHER, MEDICAID, SELFPAY | PROVIDERS: PCP Family Medicine; Referring Provider Family Medicine; Visit Provider Internal Medicine Nephrology | DX: N18.32 Chronic kidney disease, stage 3b (principal) ==

== ENCOUNTER → 2021-10-27 14:07 | Outpatient (CLI) | payer MEDICARE, OTHER, MEDICAID, SELFPAY ==
--- NOTE | 2021-10-27 14:14 | RAD_ITS ---
STUDY: X-RAY - LEFT KNEE REASON FOR EXAM: Female, 76 years old. FALL, PAIN TECHNIQUE: 3 view(s) of the knee. COMPARISON: None. FINDINGS: Normal visualized distal femur. Normal visualized proximal tibia and fibula. Normal proximal tibiofibular articulation. Normal medial femorotibial compartment. Normal lateral femorotibial compartment. Normal patellofemoral articulation. There is no demonstrated joint effusion. The soft tissue structures are unremarkable. RAD/Knee 3 Views IMPRESSION: No fracture or malalignment. Electronically Signed: Vijay Patel MD ([place]) at 14:52 EST , Service support ,
--- NOTE | 2021-10-27 14:14 | RAD_ITS ---
STUDY: X-RAY - LEFT SHOULDER REASON FOR EXAM: Female, 76 years old. FALL, PAIN TECHNIQUE: 3 view(s) of the shoulder. COMPARISON: None. FINDINGS: Normal glenohumeral articulation. Normal acromioclavicular joint. Normal acromion. Normal humeral head and visualized proximal humerus. The soft tissue structures are unremarkable. Normal visualized pulmonary apex. RAD/Shoulder min 2 Views IMPRESSION: No fracture or malalignment. Electronically Signed: Vijay Patel MD ([place]) at 14:51 EST , Service support ,
== END ==
PROVIDERS: PCP Family Medicine; Referring Provider Registered Nurse; Visit Provider Registered Nurse
DX: M25.562 Pain in left knee (principal); M25.512 Pain in left shoulder
CPT/HCPCS: 73030; 73562

== ENCOUNTER 2022-01-05 13:53 | Outpatient (CLI) | payer MEDICARE, OTHER, MEDICAID, SELFPAY ==
[2022-01-05 17:51] LABS: Absolute Lymphocyte Count 2.59 X10^3/uL (0.83-4.51); Absolute Neutrophil Count 3.5 X10^3/uL (2.0-7.7); Basophil# 0.04 X10^3/uL; Basophil% 0.6 % (0-1); Eosinophil# 0.04 X10^3/uL; Eosinophils% 0.6 % (0-5); Hematocrit 38.5 % (37-47); Hemoglobin 12.1 g/dL (12.0-15.0); Lymphocyte # 2.59 X10^3/ul (0.83-4.51); Mean Corp Hgb Conc 31.4 g/dL (32-36); Mean Corpuscular Hgb 29.5 pg (27.0-32.0); Mean Corpuscular Volume 93.9 fL (81-99); Mean Platelet Vol. 9.7 fl (6.2-12.0); Monocyte# 0.47 X10^3/uL; Monocyte% 7.1 % (0-10); NRBC Flagged by Analyzer 0 % (0-5); Neutrophil # 3.48 X10^3/uL (2.7-7.7); Neutrophil % 52.4 % (47-70); Platelet Count 281 K/mm3 (150-450); RBC Distribution Width CV 14.1 % (11.6-14.6); RBC Distribution Width SD 48.6 fl (35.1-43.9); White Blood Count 6.6 K/mm3 (4.4-11.0)
[2022-01-05 18:22] LABS: Vitamin D,25 Hydroxy 39.6 ng/mL
[2022-01-05 18:36] LABS: ALB/GLOB Ratio 0.8 RATIO (0.9-2.4); AST(SGOT) 17 U/L (15-37); Alanine Aminotransfer ALT/SGPT 20 U/L (13-56); Albumin, Serum 3.4 g/dL (3.2-5.0); Alkaline Phosphatase 108 U/L (45-117); Anion Gap 7 (5-15); BUN 26 mg/dL (7-18); BUN/Creat Ratio 15.5 RATIO (10-20); Calcium,Total 9.1 mg/dL (8.5-10.1); Chloride 106 mmol/L (98-107); Cholesterol 203 mg/dL (200); Creatinine, Serum 1.68 mg/dL (0.55-1.02); EST Glomerular Filtration Rate 31 mL/min (>60); Est Glom Filt Rate - Afr Amer 38 mL/min (>60); Globulin 4.1 g/dL (2.2-4.2); Glucose 118 mg/dL (74-106); High Density Lipoprotein 77 mg/dL; Phosphorus 3.2 mg/dL (2.5-4.9); Potassium 3.8 mmol/L (3.5-5.1); Protein, Total 7.5 g/dL (6.4-8.2); Sodium Level 140 mmol/L (136-145); Thyroid Stim Hormone (TSH) 3.83 uIU/mL (0.358-3.74); Triglycerides 76 mg/dL; Very Low Density Lipoprotein 15 mg/dL (5-40)
[2022-01-06 08:07] LABS: PTHIN 91.5 pg/mL (18.4-80.1)
== END 2022-01-05 23:59 | disposition home or self-care (01) ==
LOC: MFPLAB 13:57
PROVIDERS: PCP Family Medicine; Referring Provider Family Medicine; Visit Provider Family Medicine
DX: I12.9 Hypertensive chronic kidney disease with stage 1 through stage 4 chronic kidney disease, or unspecified chronic kidney disease (principal); E21.3 Hyperparathyroidism, unspecified; N18.30 Chronic kidney disease, stage 3 unspecified; E78.00 Pure hypercholesterolemia, unspecified; E06.3 Autoimmune thyroiditis; E55.9 Vitamin D deficiency, unspecified
CPT/HCPCS: 36415; 80053; 80061; 82306; 83970; 84100; 84439; 84443; 85025

== ENCOUNTER 2022-01-11 09:11 | Outpatient (CLI) | payer MEDICARE, OTHER, MEDICAID, SELFPAY ==
[2022-01-11 10:46] LABS: Hemoglobin A1c 5.5 % (3.8-5.6)
== END 2022-01-11 23:59 | disposition home or self-care (01) ==
LOC: MFPLAB 09:15
PROVIDERS: PCP Family Medicine; Referring Provider Family Medicine; Visit Provider Family Medicine
DX: R73.09 Other abnormal glucose (principal)
CPT/HCPCS: 36415; 83036

== ENCOUNTER → 2022-03-19 | Outpatient (CLI) | payer MEDICARE, SELFPAY ==
--- NOTE | 2022-03-19 17:05 | US_ITS ---
STUDY: SUPERFICIAL ULTRASOUND EXAMINATION OF A LUMP IN THE REGION OF THE UPPER RIGHT HUMERUS OF 1712 HOURS ON 03/19/2022 REASON FOR EXAM: 76-year-old female with a subcutaneous nodule in the upper right humeral region. TECHNIQUE: A superficial ultrasound was performed with real-time and static almazan-scale imaging. COMPARISON: None. FINDINGS: There is a heterogeneous echogenic, avascular, poorly defined structure in the area of the palpable lump in the subcutaneous tissues of the lateral upper arm adjacent to the lateral humerus. This is solely in the subcutaneous tissues and measures 2.5 cm x 3.5 cm x 8 mm. This likely represents a site of fat necrosis. The lesion does not involve the humerus or muscles. This lesion is readily accessible to percutaneous biopsy for pathological morphological evaluation. A scan of the left upper arm was performed (for comparison) that does not demonstrate any similar structure. US/Ext Non Vasc Limited/Soft Tiss IMPRESSION: 1. Presence of a 2.5 cm x 3.5 cm x 8 mm mildly heterogeneous, echogenic, avascular, poorly defined structure at the site of the palpable lump in the subcutaneous tissues of lateral upper arm adjacent to the lateral humerus. This most likely represents a site of fat necrosis. 2. No evidence of other cystic or solid mass lesions in the upper right arm. 3. The lesion does not involve the humerus or muscles. 4. The lesion is readily accessible to percutaneous biopsy for morphological evaluation. Pending Final Proof Editing
== END | disposition home or self-care (01) ==
LOC: US 17:03
PROVIDERS: PCP Family Medicine; Referring Provider Family Medicine; Visit Provider Family Medicine
DX: R22.9 Localized swelling, mass and lump, unspecified (principal)
CPT/HCPCS: 76882

== ENCOUNTER → 2022-04-27 | Outpatient (CLI) | payer MEDICARE, MEDICAID, SELFPAY ==
--- NOTE | 2022-04-27 07:52 | CT_ITS ---
STUDY: CT RIGHT SHOULDER REASON FOR EXAM: Female, 76 years old. Soft tissue mass right deltoid RADIATION DOSAGE (If Supplied By Facility): CTDIvol = ( 33.98 ) mGy, DLP = ( 826.02 ) mGycm TECHNIQUE: The patient was scanned in a multi detector CT scanner. High resolution transaxial imaging was performed without the administration of intravenous contrast material. Sagittal and coronal images were reconstructed. Individualized dose optimization techniques were used for this CT. COMPARISON: None. FINDINGS: Normal glenohumeral articulation. Normal glenoid rim, neck and visualized scapula. Normal humeral head, neck and tuberosities. Normal coracoid process. Normal visualized lateral clavicle. Normal acromioclavicular articulation. There is a Type II morphology (curved), with a neutral orientation. Small axillary nodes. CT/Extremity Upper WITH Contrast IMPRESSION: No mass lesion is seen. Electronically Signed: Duy Lopez MD at 9:53 EDT ,
[2022-04-27 08:16] LABS: CREATININE FINGERSTICK 1.5 mg/dL (0.55-1.02)
== END | disposition home or self-care (01) ==
LOC: CT 07:46
PROVIDERS: PCP Family Medicine; Referring Provider Surgery; Visit Provider Surgery
DX: M25.511 Pain in right shoulder (principal); M79.89 Other specified soft tissue disorders; I10 Essential (primary) hypertension
CPT/HCPCS: 73201; Q9967; A4216

== ENCOUNTER → 2022-07-29 | Outpatient (CLI) | payer MEDICARE, SELFPAY ==
[2022-07-29 15:01] LABS: Absolute Neutrophil Count 5.8 X10^3/uL (2.0-7.7); Basophil# 0.03 X10^3/uL; Basophil% 0.4 % (0-1); Hemoglobin 12.2 g/dL (12.0-15.0); Lymphocyte % 20.2 % (19-41); Mean Corp Hgb Conc 32.1 g/dL (32-36); Mean Corpuscular Hgb 30.3 pg (27.0-32.0); Mean Corpuscular Volume 94.5 fL (81-99); Mean Platelet Vol. 9.7 fl (6.2-12.0); Monocyte# 0.53 X10^3/uL; Monocyte% 6.7 % (0-10); NRBC Flagged by Analyzer 0 % (0-5); Neutrophil # 5.75 X10^3/uL (2.7-7.7); Neutrophil % 72.3 % (47-70); Platelet Count 266 K/mm3 (150-450); RBC Distribution Width CV 13.7 % (11.6-14.6); RBC Distribution Width SD 48.2 fl (35.1-43.9); Red Blood Count 4.02 M/mm3 (4.2-5.4); White Blood Count 7.9 K/mm3 (4.4-11.0)
[2022-07-29 15:25] LABS: ALB/GLOB Ratio 0.8 RATIO (0.9-2.4); AST(SGOT) 27 U/L (15-37); Alanine Aminotransfer ALT/SGPT 55 U/L (13-56); Albumin, Serum 3.3 g/dL (3.2-5.0); Alkaline Phosphatase 176 U/L (45-117); Anion Gap 9 (5-15); BUN 28 mg/dL (7-18); BUN/Creat Ratio 19.9 RATIO (10-20); Calcium,Total 9.2 mg/dL (8.5-10.1); Chloride 105 mmol/L (98-107); Creatinine, Serum 1.41 mg/dL (0.55-1.02); EST Glomerular Filtration Rate 38 mL/min (>60); Est Glom Filt Rate - Afr Amer 46 mL/min (>60); Globulin 4.1 g/dL (2.2-4.2); Glucose 77 mg/dL (74-106); Magnesium 2.6 mg/dL (1.6-2.6); Potassium 3.9 mmol/L (3.5-5.1); Protein, Total 7.4 g/dL (6.4-8.2); Sodium Level 139 mmol/L (136-145); T4 Free Direct 0.78 ng/dL (0.76-1.46); Thyroid Stim Hormone (TSH) 1.52 uIU/mL (0.358-3.74)
[2022-07-29 15:54] LABS: Hemoglobin A1c 5.4 % (3.8-5.6)
== END | disposition home or self-care (01) ==
LOC: MTLAB 12:57
PROVIDERS: PCP Family Medicine; Referring Provider Family Medicine; Visit Provider Family Medicine
DX: R00.2 Palpitations (principal); R73.09 Other abnormal glucose
CPT/HCPCS: 36415; 80053; 83036; 83735; 84439; 84443; 85025

== ENCOUNTER → 2022-08-17 | Outpatient (CLI) | payer MEDICARE, SELFPAY | END | disposition home or self-care (01) | PROVIDERS: PCP Family Medicine; Visit Provider Family Medicine | DX: U07.1 COVID-19 (principal) | CPT/HCPCS: 87635; U0003; U0005 ==

== ENCOUNTER → 2022-09-14 | Outpatient (CLI) | payer MEDICARE, MEDICAID, SELFPAY ==
--- NOTE | 2022-09-14 15:20 | RAD_ITS ---
INDICATION: Knee pain and swelling. History of multiple falls. EXAMINATION/TECHNIQUE: X-RAY - LEFT XR Knee Complete 4 Views or More 4 VIEWS COMPARISON: October 27, 2021. FINDINGS: SOFT TISSUES: No soft tissue swelling or gas. No radiopaque foreign body. BONES/JOINTS: There is a total knee replacement. The prosthetic components are intact and articulate normally with each other. There is no evidence of loosening from the underlying bone. There is no evidence of osseous fracture or destructive osseous pathology. No joint effusion. RAD/Knee 4 or More Views IMPRESSION: Left total knee arthroplasty without acute fracture or dislocation. No major interval change. Electronically Signed: Vidal Alvarenga DO at 18:08 EDT Reading Location ID and State: [address] [place] [address] Tel [phone], Service support ,
== END | disposition home or self-care (01) ==
PROVIDERS: PCP Family Medicine; Referring Provider Family Medicine; Visit Provider Family Medicine
DX: M25.562 Pain in left knee (principal)
CPT/HCPCS: 73564

== ENCOUNTER 2022-10-25 10:09 | Emergency (ER) | payer MEDICARE, MEDICAID, SELFPAY ==
[2022-10-25 10:10] VITALS: BP 138/73; PULSE 90; RESP 18; TEMP 35.9; O2SAT 97; BMI 37.2
--- NOTE | 2022-10-25 10:52 | EDS_ITS ---
HPI History of Present Illness Chief Complaint: Other, Pain/Inj Informant: patient Narrative Narrative: 77-year-old female presenting to the emergency room with chief complaint of neck pain. Patient states that she went to bed having a sore neck is worse today. There is no radicular symptoms. She notes that the neck feels generally stiff particularly when she goes to flex she states that she feels a pulling in her middle back. No known injury. No prior reoccurrences of this. She denies any rash. She notes that she is starting to get a slight headache described as starting in her occiput and coming around to the front. [facility] Medical History High cholesterol Hypertension Home Medications verapamil 360 mg 24 hr capsule,extended release 360 mg PO DAILY bp 07/16/16 [History Last Taken 10/31/20] latanoprost 0.005 % eye drops 1 drp ophthalmic (eye) HS 03/22/18 [Rx Last Taken 10/31/20] atorvastatin 20 mg tablet 20 mg PO QHS 07/11/18 [History Last Taken Unknown] pantoprazole 40 mg tablet,delayed release 40 mg PO DAILY 07/11/18 [History Last Taken 10/31/20] albuterol sulfate 90 mcg/actuation aerosol inhaler 2 puff inhalation Q4H PRN PRN Wheezing ##1 10/03/19 [Rx Last Taken Unknown] cyclosporine 0.05 % eye drops in a dropperette 1 drp ophthalmic (eye) BID 09/15 03/03 [History Last Taken 10/31/20] brimonidine 0.2 %-timolol 0.5 % eye drops 1 drp ophthalmic (eye) DAILY 10/23/20 [History Last Taken 10/31/20] cholecalciferol (vitamin D3) 50 mcg (2,000 unit) capsule 2,000 unit PO DAILY 10/23/20 [History Last Taken 10/31/20] ferrous gluconate 324 mg (37.5 mg iron) tablet 325 mg PO DAILY@0800 10/23/20 [History Last Taken 10/31/20] gabapentin 300 mg capsule 300 mg PO DAILY 02/02/21 [History Last Taken Unknown] methylprednisolone 4 mg tablets in a dose pack (Medrol (Fabricio)) See Rx Instructions PO PER PKG DIR #21 tabs 02/04/21 [Rx Last Taken Unknown] diazepam 5 mg tablet 5 mg PO Q8 PRN Muscle Spasm #10 tabs 10/25/22 [Rx Last Taken Unknown] naproxen 500 mg tablet 500 mg PO BID PRN #20 tabs 10/25/22 [Rx Last Taken Unknown] Allergy/AdvReac Type Severity Reaction Status Date / Time codeine AdvReac Nausea Verified 10/25/22 10:09 latex AdvReac Rash Verified 10/25/22 10:09 tramadol [From Ultram] AdvReac Itching Verified 10/25/22 10:09 Surgical History H/O arthroscopy of left knee H/O left knee replacement h/o left shoulder arthroscopy h/o right hand surgery Social History Smoking Status: Never smoker ROS ROS ED Constitutional Constitutional ED: Denies chills or weight loss Eyes Eyes: Denies change in vision or diplopia ENT ENT ED: Denies ear pain, rhinorrhea or sore throat Cardiovascular Cardiovascular: Denies chest pain, orthopnea, palpitations or racing heartbeat Respiratory/Chest Respiratory/Chest: Denies cough, dyspnea or orthopnea Gastrointestinal Gastrointestinal: Denies abdominal pain, diarrhea, nausea or vomiting Genitourinary Genitourinary ED: Denies dysuria, hematuria or urinary frequency Musculoskeletal Musculoskeletal: Reports neck pain; Denies arthralgias, back pain or myalgias Integumentary Denies abscess or rash Neurologic Neurologic: Reports headache(s); Denies paresthesias or weakness Psychiatric Psychiatric: Denies anxiety, depression, suicidal ideation or suicidal thoughts Endocrine Endocrinology: Denies polydipsia, polyphagia or polyuria Allergic/Immunologic Allergic/Immunologic ED: Denies mouth swelling, tongue swelling or urticaria EXAM Physical Exam Narrative Exam Narrative: Well-appearing female sitting comfortably in the bed Const Vital Signs: 10/25/22 10:10 10/25/22 10:43 Temperature 96.6 F L Temperature Source Temporal Pulse Rate 90 Respiratory Rate 18 Respiratory Effort Normal Non-Labored Respiratory Pattern Normal Blood Pressure 138/73 H Blood Pressure Mean 94 Pulse Ox 97 Oxygen Delivery Method Room Air Positive well nourished and well developed General Appearance ED: well developed HEENT Reports normocephalic, head/scalp atraumatic and moist mucous membranes Eyes PERRL and EOMs intact bilaterally Neck no lymphadenopathy, supple and no JVD Neck Narrative: Patient has generalized tenderness to palpation throughout the neck musculature posteriorly. There is palpable muscle spasm. Patient has pain with movement but she has full range of motion. Resp normal respiratory effort and clear to auscultation bilaterally Cardio regular rate, regular rhythm and no murmurs GI normal to inspection, nondistended, normoactive bowel sounds and non-tender Palpation: soft Back/Spine no CVA tenderness and normal ROM Extremity normal to inspection General Extremety ED: Negative for edema General Extremity: Negative for edema Neuro oriented x3 and CN's II-XII intact bilaterally Sensorium / Orientation: alert Motor Exam: strength 5/5 throughout Psych mental status grossly normal Mood & Affect: Negative for depressed or tearful Skin no rashes or lesions noted and no wounds Discharge Plan Triage Chief Complaint: Other, Pain/Inj Other Complaint: Upper Extremity Injury ED Provider: Jaron Long Dx/Rx/DC Orders Clinical Impression: Neck muscle spasm Instructions: ED Back Spasm, No Trauma Prescriptions: New naproxen 500 mg tablet 500 mg PO BID PRN Qty: 20 0RF diazepam [diazepam] 5 mg tablet 5 mg PO Q8 PRN (Reason: Muscle Spasm) Qty: 10 0RF No Action cyclosporine 0.05 % dropperette 1 drp OPHTHALMIC BID gabapentin 300 mg capsule 300 mg PO DAILY methylprednisolone [Medrol (Fabricio)] 4 mg tablets,dose pack See Rx Instructions PO PER PKG DIR Qty: 21 0RF Rx Instructions: PO per package directions; verapamil 360 MG capsule,ext rel. pellets 24 hr 360 mg PO DAILY Label Comments: BP latanoprost 1 DROP bottle 1 drp OPHTHALMIC HS 0RF atorvastatin 20 MG tablet 20 mg PO QHS pantoprazole 40 MG tablet 40 mg PO DAILY albuterol sulfate 1 INHALER inhaler 2 puff INHALATION Q4H PRN PRN (Reason: Wheezing) Qty: 1 0RF brimonidine-timolol 1 DROP bottle 1 drp OPHTHALMIC DAILY cholecalciferol (vitamin D3) 2,000 UNIT capsule 2,000 unit PO DAILY ferrous gluconate 324 MG tablet 325 mg PO DAILY@0800 Primary Care Provider: Lazaro Yañez Referrals: Lazaro Yañez MD [Primary Care Provider] - As Needed Disposition Disposition: Home, Self Care
[2022-10-25 11:05] VITALS: PULSE 88; RESP 17; O2SAT 96
== END 2022-10-25 11:06 | disposition home or self-care (01) ==
PROVIDERS: Emergency Provider Emergency Medicine; PCP Family Medicine; Visit Provider Emergency Medicine
DX: M62.838 Other muscle spasm (principal)
CPT/HCPCS: 99282

== ENCOUNTER → 2022-11-18 | Outpatient (CLI) | payer MEDICARE, SELFPAY ==
--- NOTE | 2022-11-18 14:44 | RAD_ITS ---
STUDY: X-RAY - BILATERAL RIBS WITH CHEST REASON FOR EXAM: Female, 77 years old. Rib pain. TECHNIQUE - RIBS: 3 view(s) of the ribs. TECHNIQUE - CHEST: Single frontal view of the chest. COMPARISON: Chest dated May 15, 2021 FINDINGS - RIBS : Osteopenia of the osseous structures. No displaced rib fracture identified. FINDINGS - CHEST: The lungs are clear and expanded. There is no demonstrated pleural abnormality. Stable cardiomegaly. Normal mediastinum and leonor. Normal visualized pulmonary arteries. Aortic tortuosity with calcification unchanged. Normal visualized thoracic spine. Normal visualized ribs, clavicles, and shoulders. Stable large hiatal hernia with air-fluid level. RAD/Ribs Nav Min 4V w/PA Chest IMPRESSION: RIBS: Osteopenia with no displaced rib fracture identified. CHEST: Stable large hiatal hernia with air-fluid level. No pneumothorax. Electronically Signed: Sadiq Kaufman, at 15:59 EST ,
[2022-11-18 17:40] LABS: Absolute Lymphocyte Count 2.34 X10^3/uL (0.83-4.51); Absolute Neutrophil Count 2.8 X10^3/uL (2.0-7.7); Basophil# 0.04 X10^3/uL; Basophil% 0.7 % (0-1); Eosinophil# 0.08 X10^3/uL; Eosinophils% 1.4 % (0-5); Hematocrit 38.3 % (37-47); Hemoglobin 11.9 g/dL (12.0-15.0); Lymphocyte # 2.34 X10^3/ul (0.83-4.51); Lymphocyte % 39.8 % (19-41); Mean Corp Hgb Conc 31.1 g/dL (32-36); Mean Corpuscular Hgb 30.2 pg (27.0-32.0); Mean Corpuscular Volume 97.2 fL (81-99); Mean Platelet Vol. 10.2 fl (6.2-12.0); Monocyte# 0.58 X10^3/uL; Monocyte% 9.9 % (0-10); NRBC Flagged by Analyzer 0 % (0-5); Neutrophil # 2.82 X10^3/uL (2.7-7.7); Neutrophil % 47.9 % (47-70); Platelet Count 248 K/mm3 (150-450); RBC Distribution Width CV 13.9 % (11.6-14.6); RBC Distribution Width SD 49.5 fl (35.1-43.9); Red Blood Count 3.94 M/mm3 (4.2-5.4); White Blood Count 5.9 K/mm3 (4.4-11.0)
[2022-11-18 18:37] LABS: ALB/GLOB Ratio 0.9 RATIO (0.9-2.4); AST(SGOT) 21 U/L (15-37); Alanine Aminotransfer ALT/SGPT 27 U/L (13-56); Alkaline Phosphatase 106 U/L (45-117); BUN 27 mg/dL (7-18); BUN/Creat Ratio 17.4 RATIO (10-20); Calcium,Total 8.8 mg/dL (8.5-10.1); Chloride 112 mmol/L (98-107); Cholesterol 220 mg/dL (200); Creatinine, Serum 1.55 mg/dL (0.55-1.02); EST Glomerular Filtration Rate 34 mL/min (>60); Est Glom Filt Rate - Afr Amer 41 mL/min (>60); Globulin 3.3 g/dL (2.2-4.2); Glucose 87 mg/dL (74-106); Phosphorus 3.4 mg/dL (2.5-4.9); Potassium 4.4 mmol/L (3.5-5.1); Protein, Total 6.3 g/dL (6.4-8.2); Sodium Level 144 mmol/L (136-145); Triglycerides 83 mg/dL
[2022-11-18 18:38] LABS: Anion Gap 6 (5-15); High Density Lipoprotein 79 mg/dL; T4 Free Direct 0.82 ng/dL (0.76-1.46); Thyroid Stim Hormone (TSH) 2.06 uIU/mL (0.358-3.74); Very Low Density Lipoprotein 17 mg/dL (5-40)
[2022-11-18 20:07] LABS: Vitamin D,25 Hydroxy 38.6 ng/mL
[2022-11-19 09:11] LABS: PTHIN 95.2 pg/mL (18.4-80.1)
[2022-11-19 12:14] LABS: Ferritin 76 ng/mL (8-252); Iron 51 ug/dL (50-170); Iron Binding Capacity,Total 265 ug/dL (250-450); PERCENT IRON SATURATION 19.2 % (15.0-55.0)
[2022-11-19 12:18] LABS: Vitamin B12 421 pg/mL (211-911)
== END | disposition home or self-care (01) ==
PROVIDERS: PCP Family Medicine; Referring Provider Family Medicine; Visit Provider Family Medicine
DX: R07.81 Pleurodynia (principal); D64.9 Anemia, unspecified; I10 Essential (primary) hypertension; E78.00 Pure hypercholesterolemia, unspecified; E55.9 Vitamin D deficiency, unspecified
CPT/HCPCS: 36415; 71111; 80053; 80061; 82306; 82607; 82728; 83540; 83550; 83970; 84100; 84439; 84443; 85025

== ENCOUNTER → 2023-01-25 | Outpatient (CLI) | payer MEDICARE, MEDICAID, SELFPAY ==
--- NOTE | 2023-01-25 17:15 | RAD_ITS ---
STUDY: X-RAY CHEST REASON FOR EXAM: Female, 77 years old. Fever and cough TECHNIQUE: PA and lateral views of the chest. COMPARISON: 05/15/2021 FINDINGS: The lungs are clear and expanded. There is no demonstrated pleural abnormality. Normal size heart. Normal mediastinum and leonor. Normal visualized pulmonary arteries. Normal visualized aortic arch and descending thoracic aorta. Normal visualized thoracic spine. Normal visualized ribs, clavicles, and shoulders. There is no demonstrated abnormality of the visualized soft tissue structures of the upper abdomen. RAD/Chest PA and Lateral IMPRESSION: Normal x-ray examination of the chest. Electronically Signed: Jann Almaguer MD at 8:12 EDT ,
== END | disposition home or self-care (01) ==
LOC: MTRAD 17:11
PROVIDERS: PCP Family Medicine; Referring Provider Family Medicine; Visit Provider Family Medicine
DX: J20.9 Acute bronchitis, unspecified (principal)
CPT/HCPCS: 71046

== ENCOUNTER → 2023-02-22 | Outpatient (CLI) | payer MEDICARE, MEDICAID, SELFPAY ==
--- NOTE | 2023-02-22 16:17 | RAD_ITS ---
INDICATION: left shoulder pain EXAMINATION/TECHNIQUE: X-RAY - LEFT XR Shoulder 4Views COMPARISON: None. FINDINGS: SOFT TISSUES: No soft tissue swelling or gas. No radiopaque foreign body. BONES/JOINTS: No acute fracture or subluxation.. Mild hypertrophy at the acromioclavicular articulation. Preservation of the joint space.. No sclerotic or destructive changes observed. RAD/Shoulder min 2 Views IMPRESSION: No acute bony injury. Electronically Signed: Hi Azar DO at 23:31 EDT ,
== END | disposition home or self-care (01) ==
LOC: MTRAD 16:16
PROVIDERS: PCP Family Medicine; Referring Provider Nurse Practitioner Family; Visit Provider Nurse Practitioner Family
DX: M25.512 Pain in left shoulder (principal)
CPT/HCPCS: 73030

== ENCOUNTER 2023-03-02 10:53 | Outpatient (RCR) | payer MEDICARE, MEDICAID, SELFPAY ==
--- NOTE | 2023-03-02 14:39 | HP.PTEVAL_ITS ---
Patient's Visit Information CLAUDIA REED is a 77 year old F referred to Physical Therapy by Dr. Florence Finley DO with a diagnosis of L shoulder pain. Date of Evaluation: 03/02/23 Physical Therapist: Prem Clement DPT - Visit Plan Frequency: 2x /Week Duration: 6 Weeks Plan: Start with US, delbert PALMER (lucinda walker). Once symptoms have started to reduce add in L UE isometrics then progressing to concentric strengthening as tolerated. - Subjective Pt. is here today for her initial evaluation with diagnosis of L shoulder pain. Pt. reports having increased L shoulder pain since her fall roughly 2 years prior. Pt. has had a few wrist surgeries, but nothing on her shoulder. Pt. reports over the past few months her shoulder has become worse. She has days where she can barely lift it, but is a little better on other days. Pt. reports noting being able to lift her arms over her head without increase in pain and marked weakness. Pt. does have pain with sleeping and does wake her up if she sleeps on that side. Pt. reports having difficulty with dressing as well. Pt. is hopeful to reduce symptoms in order to be able to do all of her daily activities at home without pain. - Pain L shoulder Pain Intensity (Out of 10): 4 Pain Intensity Range: 8 - Objective POSTURE: Pt. has FH posture in sitting and standing. Rounded B shoulders. PALPATION: pt. is very tender along posterior aspect of Subacromial space. Pt. also has tenderness along posterior triceps region. NEURO: Pt. has normal DTR of B biceps and triceps. Pt. has normal sensation in BUEs. ROM: R shoulder: AROM: flexion 150deg, adb 150deg, functional ER C2, functional IR L3. L shoulder AROM: flexion 110deg, abd 115deg, functional ear aberrant motion, functional L SI joint. Increase in symptoms with all L shoulder motions. PROM: flexion 135deg increase NW, abd 130deg increase NW, Er at side 30deg increase NW, IR at 30deg of abd 30deg increase NW. MMT: RUE: 4+/5 throughout. LUE: L elbow: flexion 5- /5, ext 5/5 NE; shoulder: flexion 4/5 increase NW, abd 4/5 increase nW, ER 4-/5 increase NW, IR 4+/5 increase NW. - Special Tests L Shoulder Drop Sign - IS Test: Negative L Shoulder Empty Can - SS: Positive L Shoulder Belly Press - SupScap: Positive L Shoulder Neer - Impingement: Positive L Shoulder Spence David - Impingement: Positive - Balance/Special Test Scores Quick DASH Score: 81.8175 - Goals Goal 1:: LTG: Pt. to be I with HEP. Goal Time Frame: 4-6 Weeks Goal 2:: STG: pt. to sleep throughout the night without increase in symptoms of her R L shoulder allowing for improved quality of life. Goal Time Frame: 2-4 Weeks Goal 3:: LTG: Pt. to have increased L shoulder AROM symmetrical to R side without increase in symptoms. Goal Time Frame: 4-6 Weeks Goal 4:: LTG: Pt. to have increased LUE strength increased by 1/2 grade throughout LUE. Goal Time Frame: 4-6 Weeks Goal 5:: STG: Pt. to have reduce L shoulder pain to 0-2/10 at rest and with light daily activities. Goal Time Frame: 2-4 Weeks - Rehabilitation Potential Physical Therapy Diagnosis: Pt. has signs and symptoms consistent with L shoulder pain. She seems to have a mech of injury from falling on her L shoulder ~2 years ago. Her whole system was very sore today and was hard to rule in/out with special testing secondary to high levels of pain. 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 Pt. would benefit from PT to reduce symptoms, then progress ROM and finally progress strength in her RUE. Rehabilitation Potential: Fair - Anticipated Interventions Patient/Client Instruction: Educate patient on: Condition, Plan of Care, Risk Factors, Benefits of Fitness Program For the Purpose of:: To foster healthy habits, To improve decision making, To facilitate caregiver knowledge, To improve self management, To prevent re- injury, To improve ability to perform tasks related to life management Therapeutic Exercise to Include: Strength training, Power training, Endurance training, Flexibilty training, Passive ROM, Active ROM, Scapular Strength/Stabilization For the Purpose of:: To decrease pain, To decrease swelling/inflammation, To increase ROM, To improve nutrient delivery to tissue, To increase oxygenation perfusion, To improve muscle performance and motor function, To increase flexibility/ROM Thank you for the opportunity to evaluate your patient. For Medicare and Medicare HMO plans, please review the plan of care and approve it. It will need to be FAXED BACK to us at [phone] for Medicare purposes. For Medicare only, by signing this I certify the plan of care. Please let me know if there are questions or concerns regarding this plan of care. Physician Signature: Date:
== END 2023-03-02 19:00 | disposition home or self-care (01) ==
LOC: PT 10:53
PROVIDERS: PCP Family Medicine; Referring Provider Nurse Practitioner Family; Visit Provider Nurse Practitioner Family
DX: M25.512 Pain in left shoulder (principal)
CPT/HCPCS: 97161

== ENCOUNTER → 2023-03-18 | Outpatient (CLI) | payer MEDICARE, MEDICAID, SELFPAY ==
--- NOTE | 2023-03-18 15:45 | RAD_ITS ---
STUDY: X-RAY - RIGHT SHOULDER REASON FOR EXAM: Female, 77 years old. SHOULDER PAIN TECHNIQUE: 4 view(s) of the shoulder. COMPARISON: None. FINDINGS: Narrowed glenohumeral articulation. Normal acromioclavicular joint. Normal acromion. Normal humeral head and visualized proximal humerus. The soft tissue structures are unremarkable. Normal visualized pulmonary apex. RAD/Shoulder min 2 Views IMPRESSION: Mild degenerative change. No acute fracture or other significant bony pathology Electronically Signed: Ion Kerr MD at 19:47 EDT ,
== END | disposition home or self-care (01) ==
LOC: MTRAD 15:44
PROVIDERS: PCP Family Medicine; Referring Provider Family Medicine; Visit Provider Family Medicine
DX: M25.511 Pain in right shoulder (principal)
CPT/HCPCS: 73030

== ENCOUNTER → 2023-08-04 | Outpatient (CLI) | payer MEDICARE, MEDICAID, SELFPAY ==
[2023-08-04 11:31] LABS: Mucous, Urine 0 SEEN /hpf (<or=2+); Red Blood Cells-Urine 0 SEEN /hpf (0-5)
[2023-08-04 15:29] LABS: Absolute Lymphocyte Count 2.04 X10^3/uL (0.83-4.51); Absolute Neutrophil Count 1.9 X10^3/uL (2.0-7.7); Basophil# 0.03 X10^3/uL; Basophil% 0.7 % (0-1); Eosinophil# 0.05 X10^3/uL; Eosinophils% 1.1 % (0-5); Hematocrit 37.8 % (37-47); Hemoglobin 12.1 g/dL (12.0-15.0); Lymphocyte # 2.04 X10^3/ul (0.83-4.51); Lymphocyte % 45.7 % (19-41); Mean Corpuscular Hgb 30.2 pg (27.0-32.0); Mean Corpuscular Volume 94.3 fL (81-99); Mean Platelet Vol. 9.9 fl (6.2-12.0); Monocyte# 0.41 X10^3/uL; Monocyte% 9.2 % (0-10); NRBC Flagged by Analyzer 0 % (0-5); Neutrophil # 1.92 X10^3/uL (2.7-7.7); Neutrophil % 43.1 % (47-70); Platelet Count 232 K/mm3 (150-450); RBC Distribution Width CV 13.8 % (11.6-14.6); RBC Distribution Width SD 47.8 fl (35.1-43.9); Red Blood Count 4.01 M/mm3 (4.2-5.4); White Blood Count 4.5 K/mm3 (4.4-11.0)
[2023-08-04 15:37] LABS: Vitamin D,25 Hydroxy 33.7 ng/mL
[2023-08-04 15:38] LABS: ALB/GLOB Ratio 0.8 RATIO (0.9-2.4); AST(SGOT) 23 U/L (15-37); Alanine Aminotransfer ALT/SGPT 33 U/L (13-56); Albumin, Serum 3.2 g/dL (3.2-5.0); Alkaline Phosphatase 124 U/L (45-117); Anion Gap 6 (5-15); BUN 23 mg/dL (7-18); BUN/Creat Ratio 14.2 RATIO (10-20); Calcium,Total 8.6 mg/dL (8.5-10.1); Chloride 110 mmol/L (98-107); Cholesterol 188 mg/dL (200); Color, Urine Yellow (Yellow); Creatinine, Serum 1.62 mg/dL (0.55-1.02); EST Glomerular Filtration Rate 33 mL/min (>60); Est Glom Filt Rate - Afr Amer 39 mL/min (>60); Globulin 3.9 g/dL (2.2-4.2); Glucose 83 mg/dL (74-106); Glucose, Dipstick Normal (Normal); High Density Lipoprotein 76 mg/dL; Ketone-Dipstick Negative (Negative); Leukocyte Esterase-Dipstick 500 /ul (Negative); Nitrite-Dipstick Negative (Negative); Occult Blood-Urine Negative /ul (Negative); Phosphorus 3.4 mg/dL (2.5-4.9); Potassium 4.1 mmol/L (3.5-5.1); Protein, Total 7.1 g/dL (6.4-8.2); Protein-Dipstick 30 mg/dl (Negative); Sodium Level 141 mmol/L (136-145); T4 Free Direct 0.81 ng/dL (0.76-1.46); Triglycerides 72 mg/dL; Urine Clarity Sl. Cloudy (Clear); Urine Urobilinogen 1 mg/dl (Normal); Very Low Density Lipoprotein 14 mg/dL (5-40)
[2023-08-04 15:56] LABS: Urine Bilirubin Dipstick 1 mg/dL (Negative)
[2023-08-04 15:57] LABS: White Blood Cells 5-10 SEEN /hpf (0-5)
[2023-08-04 15:58] LABS: Bacteria 1+ /hpf (None Seen); Hyaline Cast 0-5 SEEN /lpf (0-5); Squamous Epithelial Cells - UA 5-10 SEEN /hpf (5-10)
[2023-08-04 16:01] LABS: Protein, Urine (Random) 51.7 mg/dL (<11.9); Protein:Creat Ratio 191 mg/g CRE (0-200)
[2023-08-05 07:40] LABS: PTHIN 110.3 pg/mL (18.4-80.1)
== END | disposition home or self-care (01) ==
LOC: MFPLAB 11:23
PROVIDERS: PCP Family Medicine; Visit Provider Internal Medicine Nephrology
DX: N18.32 Chronic kidney disease, stage 3b (principal); E21.3 Hyperparathyroidism, unspecified; M85.80 Other specified disorders of bone density and structure, unspecified site; E06.3 Autoimmune thyroiditis; E78.00 Pure hypercholesterolemia, unspecified
CPT/HCPCS: 36415; 80053; 80061; 81001; 82306; 82570; 83970; 84100; 84156; 84439; 84443; 85025

== ENCOUNTER → 2023-09-07 | Outpatient (CLI) | payer MEDICARE, MEDICAID, SELFPAY ==
--- NOTE | 2023-09-07 12:35 | RAD_ITS ---
EXAM: XR CHEST, 2 VIEWS CLINICAL INDICATION: ACUTE BRONCHITIS TECHNIQUE: Frontal and lateral views of the chest. COMPARISON: 01/25/2023 FINDINGS: LUNGS AND PLEURAL SPACES: Unremarkable. No consolidation or edema. No pneumothorax. No effusion. HEART: Unremarkable. Cardiac silhouette not enlarged. MEDIASTINUM: There is a retrocardiac density compatible with a hiatal hernia. BONES/JOINTS: Unremarkable. SOFT TISSUES: Unremarkable. RAD/Chest PA and Lateral IMPRESSION: 1. No acute pulmonary abnormality. 2. Hiatal hernia. Electronically Signed: Leo Villalta MD at 21:31 EDT ,
== END | disposition home or self-care (01) ==
LOC: MTRAD 12:31
PROVIDERS: PCP Family Medicine; Referring Provider Family Medicine; Visit Provider Family Medicine
DX: J20.9 Acute bronchitis, unspecified (principal)
CPT/HCPCS: 71046

== ENCOUNTER → 2023-11-30 | Outpatient (CLI) | payer SELFPAY ==
--- NOTE | 2023-11-30 16:49 | RAD_ITS ---
INDICATION: ACUTE BRONCHITIS EXAMINATION/TECHNIQUE: X-RAY - XR Chest 2 Views COMPARISON: Prior study dated: 09/07/2023 FINDINGS: LINES/DEVICES: None. LUNGS: No consolidation, edema or effusion. No pneumothorax. MEDIASTINUM AND CARDIOVASCULAR STRUCTURES: Cardiac silhouette not enlarged. Central airways and mediastinal contour are unremarkable. BONES AND SOFT TISSUES: Large hiatal hernia is again seen. RAD/Chest PA and Lateral IMPRESSION: No radiographic evidence of acute cardiopulmonary disease. Hiatal hernia. Electronically Signed: Eric Chambers MD at 11:[address] [facility] ,
--- OUTSIDE RECORDS SUMMARY | 2023-11-30 17:06 | XMS RPT_ITS | CCD ---
Author Name Unknown Address [address] [place] [address] Organization [facility] Care Team Providers Care Senior Construction Estimator Name Role Phone Carolina Wade Unavailable Carolina Wade N Unavailable Berna Wadeica N Unavailable Derek Vazquez Unavailable Ruchi Mendoza LPN S Unavailable Ruchi Mendoza LPN S Unavailable Carolina Wade N Unavailable Berna Wadeica N Unavailable Sonja Ha MD Unavailable [phone] Carolina Wade N Unavailable Susan Yañez Unavailable Jefry Chang Unavailable Susan Yañez Primary Care Provider Susan Sorensen MD Primary Care Provider Jefry Chang Unavailable Susan Yañez Unavailable Jefry Chang Unavailable Susan Yañez Primary Care Provider Susan Yañez Unavailable Jefry Chang Unavailable Susan Yañez Primary Care Provider SUSAN YAÑEZ Primary Care Unavailabl e PROVIDER, UNKNOWN Referring Unavailable [facility] Primary Care Unavailabl e PROVIDER, UNKNOWN Referring Unavailable JADE MELGOZA Attending Unavailable [facility] Primary Care Unavailabl e PROVIDER, UNKNOWN Referring Unavailable DLUGJADE LORA Attending Unavailable [facility] Primary Care Unavailabl e PROVIDER, UNKNOWN Referring Unavailable DLUGGENO, JADE Attending Unavailable [facility] Primary Care Unavailabl e PROVIDER, UNKNOWN Referring Unavailable [facility] Primary Care Unavailabl e PROVIDER, UNKNOWN Referring Unavailable [facility] Primary Care Unavailabl e PROVIDER, UNKNOWN Referring Unavailable [facility] Primary Care Unavailabl e PROVIDER, UNKNOWN Referring Unavailable [facility] Primary Care Unavailabl e PROVIDER, UNKNOWN Referring Unavailable [facility] Primary Care Unavailabl e PROVIDER, UNKNOWN Referring Unavailable [facility] Primary Care Unavailabl e PROVIDER, UNKNOWN Referring Unavailable [facility] Primary Care Unavailabl e PROVIDER, UNKNOWN Referring Unavailable [facility] Primary Care Unavailabl e PROVIDER, UNKNOWN Referring Unavailable [facility] Primary Care Unavailabl e PROVIDER, UNKNOWN Referring Unavailable [facility] Primary Care Unavailabl e PROVIDER, UNKNOWN Referring Unavailable [facility] Primary Care Unavailabl e PROVIDER, UNKNOWN Referring Unavailable [facility] Primary Care Unavailabl e PROVIDER, UNKNOWN Referring Unavailable [facility] Primary Care Unavailabl e PROVIDER, UNKNOWN Referring Unavailable [facility] Primary Care Unavailabl e PROVIDER, UNKNOWN Referring Unavailable JADE MELGOZA Attending Unavailable [facility] Primary Care Unavailabl e PROVIDER, UNKNOWN Referring Unavailable [facility] Primary Care Unavailabl e PROVIDER, UNKNOWN Referring Unavailable [facility] Primary Care Unavailabl e PROVIDER, UNKNOWN Referring Unavailable [facility] Primary Care Unavailabl e PROVIDER, UNKNOWN Referring Unavailable [facility] Primary Care Unavailabl e PROVIDER, UNKNOWN Referring Unavailable JADE MELGOZA Attending Unavailable [facility] Primary Care Unavailabl e PROVIDER, UNKNOWN Referring Unavailable JADE MELGOZA Attending Unavailable [facility] Primary Care Unavailabl e PROVIDER, UNKNOWN Referring Unavailable MELLUGJADE LORA Attending Unavailable SCHINNER, [facility] [place] Primary Care Unavailabl e PROVIDER, UNKNOWN Referring Unavailable SCHINHUSAM SUSAN [place] Primary Care Unavailabl e PROVIDER, UNKNOWN Referring Unavailable SCHINHUSAM [facility] [place] Primary Care Unavailabl e PROVIDER, UNKNOWN Referring Unavailable [facility]AM, [facility] Primary Care Unavailabl e PROVIDER, UNKNOWN Referring Unavailable CAROLINA AGY Attending Unavailabl e SCHINHUSAM [facility] Primary Care Unavailabl e PROVIDER, UNKNOWN Referring Unavailable SCHINHUSAM, [facility] Primary Care Unavailabl e PROVIDER, UNKNOWN Referring Unavailable [facility] Primary Care Unavailabl e PROVIDER, UNKNOWN Referring Unavailable IsabelgeorgiaSusan Monument Unavailable Jefry Chang Unavailable Susan Yañez [place] Primary Care Provider [facility] Primary Care Unavailabl e DESIRAE SORENSEN Referring Unavailable [facility] Primary Care Unavailabl e FLORENCE FINLEY Attending Unavailab le [facility] Primary Care Unavailabl e FLORENCE FINLEY Referring Unavailab le CHICFLORENCE HART Attending Unavailab le FLORENCE FINLEY Attending Unavailab le [facility] Primary Care UnavailRORY Lawson Attending Unavailable [facility]IN, [facility] Primary Care Unavailabl e SUSAN YAÑEZ [place] Referring Unavailabl e FLORENCE FINLEY Attending Unavailab le FLORENCE FINLEY Referring Unavailab karyna YAÑEZ [facility] Primary Care UnavailDAIJA Blair Attending Unavailable DAIJA ALCOCER Referring Unavailable [facility] Primary Care Unavailabl e FLORENCE FINLEY Attending Unavailab FLORENCE [place] Referring Unavailab le [facility] Primary Care UnavailDAIJA Blair Referring Unavailable [facility]INHUSAM [facility] Primary Care Unavailabl e FLORENCE FINLEY Attending Unavailab le FLORENCE FINLEY Referring Unavailab le [facility] Primary Care Unavailabl e [facility] Primary Care Unavailabl e SUDEEP CARLTON Attending Unavailable Allergies Allergy Classification Reported Allergen(s) Allergy Type Date of Onset Reaction(s) Facility (1 source) codeine Drug Allergy 8 nausea and shaking [facility] Work Phone: (20 sources) Codeine; Translations: [CODEINE] Drug Allergy 6 Hives, GI Upset, Itching, Other: See Comments [facility] (20 sources) Latex; Translations: [LATEX] Propensity to adverse reactions 6 Rash [facility] Work Phone: (20 sources) traMADol; Translations: [TRAMADOL] Drug Allergy 9 Itching [facility] (20 sources) Adhesive Tape-Silicones; Translations: [ADHESIVE TAPE-SILICONES] Propensity to adverse reactions to drug 0 Unknown [facility] Medications Completed/Discontinued Medications Medication Drug Class(es) Dates Sig (Normalized) Sig (Original) atorvastatin 20 mg oral tablet (20 sources) HMG-CoA Reductase Inhibitor Start: 01-22-2015 atorvastatin (LIPITOR) 20 mg tablet daily at bedtime. 0 01/22/2015 Active Problems Active Problems Problem Classification Problem Date Documented Date Episodic/Chronic Anxiety disorders (20 sources) Claustrophobia; Translations: [Claustrophobia] Onset: 06-30-2015 06-30-2015 Chronic Disorders of lipid metabolism (20 sources) Dyslipidemia; Translations: [Hyperlipidemia, unspecified] Onset: 08-11-2021 08-11-2021 Chronic Diverticulosis and diverticulitis (20 sources) Diverticulosis of colon; Translations: [Diverticulosis of large intestine without perforation or abscess without bleeding] 08-11-2021 Chronic Esophageal disorders (20 sources) Gastroesophageal reflux disease; Translations: [Gastro-esophageal reflux disease without esophagitis] Onset: 09-07-2017 01-13-2022 Chronic Essential hypertension (20 sources) Benign essential hypertension; Translations: [Essential (primary) hypertension] Onset: 08-14-2017 01-13-2022 Chronic Glaucoma (20 sources) Primary open angle glaucoma; Translations: [Primary open-angle glaucoma, bilateral, severe stage] Onset: 08-11-2021 08-11-2021 Chronic Joint disorders and dislocations; trauma-related (13 sources) Chondromalacia of patella; 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] Onset: 01-22-2015 01-22-2015 Chronic Osteoarthritis (20 sources) Localized, primary osteoarthritis; Translations: [Osteoarthritis of knee] Onset: 07-02-2015 03-17-2016 Chronic Other connective tissue disease (20 sources) Disorder of rotator cuff; Translations: [Rotator cuff syndrome] Onset: 01-22-2015 08-09-2016 Episodic Other connective tissue disease (2 sources) Tendinitis of extensor tendon of hand; Translations: [Other enthesopathies, not elsewhere classified] Episodic Other connective tissue disease (1 source) Pain in left lower limb; Translations: [Pain in left leg] Episodic Other connective tissue disease (2 sources) Impingement syndrome of left shoulder region; Translations: [Impingement syndrome of left shoulder] Episodic Other connective tissue disease (2 sources) Calcific tendinitis of left shoulder; Translations: [Calcific tendinitis of left shoulder] Episodic Other injuries and conditions due to external causes (2 sources) Osteoarthritis of wrist; Translations: [Other specified injuries of left wrist, hand and finger(s), initial encounter] Episodic Other injuries and conditions due to external causes (3 sources) Sprain of scapholunate ligament; Translations: [Unspecified injury of left wrist, hand and finger(s), initial encounter] Episodic Other nervous system disorders (4 sources) Other chronic pain; Translations: [Chronic left shoulder pain] Onset: 11-19-2021 Chronic Other non-traumatic joint disorders (3 sources) Wrist joint pain; Translations: [Pain in left wrist] Episodic Other non-traumatic joint disorders (3 sources) Pain of left wrist; Translations: [Pain in left wrist] Episodic Other non-traumatic joint disorders (1 source) Ulnar impaction syndrome of left wrist; Translations: [Other specified joint disorders, left wrist] Episodic Other non-traumatic joint disorders (3 sources) Chronic pain of left upper limb; Translations: [Pain in left shoulder] Episodic Other non-traumatic joint disorders (1 source) Pain in left shoulder; Translations: [Chronic left shoulder pain] Onset: 07-28-2022 Episodic Other non-traumatic joint disorders (1 source) Other specified joint disorders, left wrist; Translations: [Ulnar abutment syndrome of left wrist] Onset: 07-22-2022 Episodic Other non-traumatic joint disorders (3 sources) Pain in left wrist; Translations: [Arthralgia of left wrist] Onset: 03-04-2022 Episodic Other nutritional; endocrine; and metabolic disorders (20 sources) Morbid obesity; Translations: [Morbid (severe) obesity due to excess calories] Onset: 05-20-2014 05-20-2014 Chronic Parkinson`s disease (20 sources) Parkinson's disease; Translations: [Parkinson's disease] Onset: 03-02-2022 Chronic Spondylosis; intervertebral disc disorders; other back problems (3 sources) Degeneration of lumbar intervertebral disc; Translations: [Other intervertebral disc degeneration, lumbar region] Onset: 11-19-2021 Chronic Unclassified (10 sources) Aftercare ; Translations: [Encounter for other orthopedic aftercare] Onset: 09-06-2016 09-06-2016 Past or Other Problems Problem Classification Problem Date Documented Da te Episodic/Chronic Abdominal hernia (20 sources) Diaphragmatic hernia; Translations: [Diaphragmatic hernia without obstruction or gangrene] Onset: 06-29-2007 06-29-2007 Episodic Complication of device; implant or graft (4 sources) Disorder of prosthetic joint; Translations: [Instability of internal left knee prosthesis, subsequent encounter] Onset: 11-26-2021 Episodic Genitourinary symptoms and ill-defined conditions (20 sources) Increased frequency of urination; Translations: [Frequency of micturition] Onset: 05-20-2014 05-20-2014 Episodic Other and unspecified benign neoplasm (20 sources) Angiomyolipoma of right kidney; Translations: [Benign lipomatous neoplasm of kidney] Onset: 08-28-2015 08-28-2015 Episodic Other connective tissue disease (1 source) Bicipital tendinitis, left shoulder; Translations: [Bicipital tendinitis, left shoulder] Onset: 06-17-2017 06-27-2017 Episodic Other connective tissue disease (1 source) Rotator cuff syndrome; Translations: [Unspecified rotator cuff tear or rupture of unspecified shoulder, not specified as traumatic] Onset: 03-12-2015 03-12-2015 Episodic Other connective tissue disease (1 source) Disorders of bursae and tendons in shoulder region, unspecified; Translations: [Disorders of bursae and tendons in shoulder region, unspecified] Onset: 01-22-2015 01-22-2015 Episodic Other connective tissue disease (20 sources) Neuropathy; Translations: [Neuralgia, neuritis, and radiculitis, unspecified] Onset: 02-01-2006 02-01-2006 Episodic Other connective tissue disease (20 sources) Triggering of digit; Translations: [Trigger finger, left middle finger] Onset: 09-08-2010 01-13-2022 Episodic Other gastrointestinal disorders (20 sources) Chronic constipation; Translations: [Other constipation] Onset: 01-13-2022 01-13-2022 Episodic Other nervous system disorders (1 source) Unspecified abnormalities of gait and mobility; Translations: [Abnormality of gait] Onset: 01-05-2022 Episodic Other non-traumatic joint disorders (20 sources) Impingement syndrome of shoulder region; Translations: [Knee pain] Onset: 01-22-2015 01-19-2016 Episodic Other non-traumatic joint disorders (2 sources) Pain in left knee; Translations: [Pain in left knee] Onset: 03-01-2016 03-17-2016 Episodic Other non-traumatic joint disorders (3 sources) Knee pain; Translations: [Pain in unspecified knee] Onset: 01-22-2015 12-30-2016 Episodic Other non-traumatic joint disorders (1 source) Shoulder pain; Translations: [Pain in left shoulder] Onset: 01-01-2016 01-19-2016 Episodic Other non-traumatic joint disorders (1 source) Pain in joint, shoulder region; Translations: [Pain in joint involving shoulder region] Onset: 01-22-2015 01-22-2015 Episodic Other non-traumatic joint disorders (1 source) Effusion, left knee; Translations: [Effusion, left knee] Onset: 03-01-2016 03-17-2016 Episodic Spondylosis; intervertebral disc disorders; other back problems (20 sources) Chronic low back pain; Translations: [Lumbago with sciatica, left side] Onset: 11-19-2021 Episodic Sprains and strains (10 sources) Sprain of unspecified rotator cuff capsule, initial encounter; Translations: [Sprain of unspecified rotator cuff capsule, initial encounter] Onset: 03-21-2015 03-24-2015 Episodic Unclassified (1 source) Problem Results Test Name Value Interpretation Reference Range Facil ity Vital Signs Date Time Vital Sign Value Performing Clinician Facility 06-03-2022 12:02-0400 Body weight 106.28 kg Daija Alcocer PA-C Work Phone: [facility] 06-03-2022 12:02-0400 Diastolic blood pressure 71 mm[Hg] Daija Alcocer PA-C Work Phone: [facility] 06-03-2022 12:02-0400 Heart rate 72 /min Daija Alcocer PA-C Work Phone: [facility] 06-03-2022 12:02-0400 SaO2% (BldA) [Mass fraction] 99 % Daija Alcocer PA-C Work Phone: [facility] 06-03-2022 12:02-0400 Systolic blood pressure 172 mm[Hg] Daija Alcocer PA-C Work Phone: [facility] 03-09-2022 09:32-0400 Body height 162.6 cm Jasper Grater LITERACY SPECIALIST.TREATING INSPECTOR Work Phone: [facility] 03-09-2022 09:32-0400 Body weight 107.96 kg Jasper Grater LITERACY SPECIALIST.TREATING INSPECTOR Work Phone: [facility] 04-24-2015 10:14-0400 BMI (Body Mass Index) 41.88 kg/m2 [facility] Work Phone: 04-24-2015 10:14-0400 Weight 110.68 kg [facility] Work Phone: 01-22-2015 12:50-0400 BP Diastolic 80 mm[Hg] [facility] Work Phone: 01-22-2015 12:50-0400 BP Systolic 128 mm[Hg] [facility] Work Phone: 01-22-2015 12:50-0400 Height 162.56 cm [facility] Work Phone: 01-22-2015 12:50-0400 Pulse (Heart Rate) 70 /min [facility] Work Phone: NEGATED: Highlighted [id number] 12:47-0400 BMI (Body Mass Index) 41.6 kg/m2 Sabrina Alexandre LPN [facility] Work Phone: NEGATED: Highlighted [id number] 12:47-0400 BP Diastolic 70 mm[Hg] Sabrina Alexandre CREDIT CARD CLERK [facility] Work Phone: NEGATED: Highlighted [id number] 12:47-0400 BP Diastolic 75 mm[Hg] Sabrina Alexandre CREDIT CARD CLERK [facility] Work Phone: NEGATED: Highlighted [id number] 12:47-0400 BP Systolic 141 mm[Hg] Sabrinamireille Alexandre CREDIT CARD CLERK [facility] Work Phone: NEGATED: Highlighted [id number] 12:47-0400 BP Systolic 140 mm[Hg] Sabrinamireille Alexandre CREDIT CARD CLERK [facility] Work Phone: NEGATED: Highlighted [id number] 12:47-0400 Height 160.02 cm Sabrinamireilel Alexandre CREDIT CARD CLERK [facility] Work Phone: NEGATED: Highlighted [id number] 12:47-0400 Height 160 cm Sabrinaruddy Alexandre CREDIT CARD CLERK [facility] Work Phone: NEGATED: Highlighted [id number] 12:47-0400 Pulse (Heart Rate) 64 /min Sabrina Alexandre CREDIT CARD CLERK [facility] Work Phone: NEGATED: Highlighted [id number] 12:47-0400 Weight 106.14 kg Sabrina Alexandre CREDIT CARD CLERK [facility] Work Phone: NEGATED: Highlighted [id number] 12:47-0400 Weight 106 kg Sabrina Alexandre CREDIT CARD CLERK [facility] Work Phone: Encounters Encounter Date Encounter Type Care Provider Facility Start: 03-16-2023 End: 03-16-2023 ambulatory SUSAN YAÑEZ Facility:[facility] Start: 03-16-2023 End: 03-16-2023 Patient encounter procedure Sudeep Carlton MD, PhD Work Phone: Orthopaedics Procedures Date Procedure Procedure Detail Performing Clinician Start: 08-03-2022 Arthrocentesis aspir &/inj major jt/bursa w/o us Florence Finley DO Work Phone: Start: 07-28-2022 Radex shoulder compl ete minimum 2 views Florence Finley DO Work Phone: Start: 05-19-2022 Injection 1 tendon sheath/ligament aponeurosis Florence Finley DO Work Phone: Start: 05-18-2022 Mri spinal canal lum bar w/o contrast material Daija Alcocer PA-C Work Phone: Start: 03-04-2022 Mri any jt upper ext remity w/o contrast matrl Florence Finley DO Work Phone: Start: 02-05-2022 Mri any jt upper ext remity w/o contrast matrl Florence Finley DO Work Phone: Start: 06-30-2018 End: 06-30-2018 Blood pressure outside of normal parameters - follow-up documented Sonja Ha MD Work Phone: Start: 06-30-2018 End: 06-30-2018 BMI documented as above normal parameters - follow-up documented Sonja aH MD Work Phone: Start: 06-30-2018 End: 06-30-2018 Current medications documented Sonja Ha MD Work Phone: Start: 06-30-2018 End: 06-30-2018 Pain assessment documented as positive - follow-up documented Sonja Ha MD Work Phone: Start: 06-30-2018 End: 06-30-2018 Radex hand minimum 3 views Sonja beal MD Work Phone: Start: 06-30-2018 End: 06-30-2018 Tobacco non-user Sonja Ha MD Work Phone: Start: 08-10-2017 End: 08-10-2017 Dietary management education, guidance, and counseling Carolina Wade Start: 12-22-2016 End: 12-30-2016 Arthrocentesis aspir&/inj major jt/bursa w/o us Derek S George Work Phone: Start: 12-22-2016 End: 12-30-2016 Drain/inject, joint/bursa Derek S George Work Phone: Start: 03-01-2016 End: 03-17-2016 Arthrocentesis aspir&/inj major jt/bursa w/o us Derek S George Work Phone: Start: 03-01-2016 End: 03-17-2016 Drain/inject, joint/bursa Derek Vazquez Work Phone: Start: 01-01-2016 End: 01-19-2016 Arthrocentesis aspir&/inj major jt/bursa w/o us Derek S George Work Phone: Start: 01-01-2016 End: 01-19-2016 Drain/inject, joint/bursa Derek Vazquez Work Phone: Plan of Treatment Date Care Activity Detail Author Start: 01-21-2025 Urine microalbumin profile DTAP,TDAP,TD (2 - Td or Tdap) [facility] Start: 07-15-2023 Influenza vaccination INFLUENZA (Season Ended) [facility] Start: 11-14-2022 ADVANCE DIRECTIVE DISCUSSION ADVANCE DIRECTIVE DISCUSSION [facility] Start: 11-14-2022 DEPRESSION ASSESSMENT DEPRESSION ASSESSMENT [facility] Start: 07-15-2022 Influenza vaccination [facility] Start: 04-04-2022 COVID-19 VACCINE (4 - Booster for Moderna series) COVID-19 VACCINE (4 - Booster for Moderna series) [facility] Start: 03-30-2022 COVID-19 VACCINE (4 - Booster for Moderna series) COVID-19 VACCINE (4 - Booster for Moderna series) [facility] Start: 03-02-2022 COVID-19 VACCINE (4 - Booster for Moderna series) COVID-19 VACCINE (4 - Booster for Moderna series) [facility] Start: 11-14-2021 ADVANCE DIRECTIVE DISCUSSION ADVANCE DIRECTIVE DISCUSSION [facility] Start: 11-14-2021 DEPRESSION ASSESSMENT DEPRESSION ASSESSMENT [facility] Start: 07-15-2021 Influenza vaccination INFLUENZA (#1) [facility] Start: 06-30-2018 End: 06-30-2018 Appointment Appointment [facility] Work Phone: Start: 06-02-2018 PNEUMOCOCCAL: 65+ (2 - PPSV23 if available, else PCV20) PNEUMOCOCCAL: 65+ (2 - PPSV23 if available, else PCV20) [facility] Start: 06-02-2018 PNEUMOCOCCAL: 65+ (2 - PPSV23 or PCV20) PNEUMOCOCCAL: 65+ (2 - PPSV23 or PCV20) [facility] Start: 08-24-2017 End: 08-24-[address] [facility] Work Phone: Start: 08-24-2017 End: 08-24-[address] [facility] Work Phone: Start: 08-10-2017 End: 08-10-2017 Appointment Appointment [facility] Work Phone: Start: 07-13-2017 End: 07-13-[address] [facility] Work Phone: Start: 06-28-2017 End: 06-28-[address] [facility] Work Phone: Start: 06-01-2017 End: 06-01-2017 Appointment Appointment [facility] Work Phone: Start: 06-01-2017 End: 06-10-2017 Mri any jt upper extremity w/o contrast matrl MRI Joint Upper Extremity [facility] Work Phone: Start: 06-01-2017 End: 06-10-2017 Mri joint upr extrem w/o dye MRI Joint Upper Extremity [facility] Work Phone: Start: 12-22-2016 End: 12-22-2016 Radiologic exam knee complete 4/more views X-Ray, Knee [facility] Work Phone: Start: 12-22-2016 End: 12-22-2016 X-ray exam, knee, 4 or more X-Ray, Knee [facility] Work Phone: Start: 12-08-2016 End: 12-08-2016 Physical Therapy General Physical Therapy [facility], [address] [place] [address], [id number] [facility] Work Phone: Start: 12-08-2016 End: 12-08-2016 Physical Therapy General Physical Therapy [facility], [address] [place] [address], [id number] [facility] Work Phone: Start: 07-15-2016 End: 07-15-2016 Mri any jt upper extremity w/o contrast matrl MRI Joint Upper Extremity [facility] Work Phone: Start: 07-15-2016 End: 07-15-2016 Mri joint upr extrem w/o dye MRI Joint Upper Extremity [facility] Work Phone: Start: 07-02-2015 End: 07-17-2015 Office outpatient visit 25 minutes [id number] Ofc Vst, Est Level IV [facility] Work Phone: Start: 07-02-2015 End: 07-17-2015 Office/outpatient visit, est, level 4 [id number] Ofc Vst, Est Level IV [facility] Work Phone: Start: 03-12-2015 End: 03-12-2015 Mri any jt upper extremity w/o contrast matrl MRI Joint Upper Extremity [facility] Work Phone: Start: 03-12-2015 End: 03-12-2015 Mri joint upr extrem w/o dye MRI Joint Upper Extremity [facility] Work Phone: Start: 10-15-2012 DIABETES SCREEN DIABETES SCREEN [facility] Start: 2008 BONE DENSITY BONE DENSITY [facility] Start: 2008 PNEUMOVAX AGE 65 AND OVER WITH 5YR LOOKBACK (#1) PNEUMOVAX AGE 65 AND OVER WITH 5YR LOOKBACK (#1) [facility] Start: 1993 SHINGRIX VACCINE (1 of 2) SHINGRIX VACCINE (1 of 2) [facility] Start: 1962 SHINGRIX VACCINE (1 of 2) SHINGRIX VACCINE (1 of 2) [facility] Start: 1961 ANNUAL PCP TEAM CHRONIC DISEASE VISIT ANNUAL PCP TEAM CHRONIC DISEASE VISIT [facility] Start: 1961 BP CONTROLLED (<130/80) BP CONTROLLED (<130/80) [facility] Start: 1961 HEPATITIS C SCREENING HEPATITIS C SCREENING [facility] Start: 1955 Adult depression screening assessment DEPRESSION SCREENING [facility] Patient Education \cps-[email or web address]\CPS_ PtEducati on\htn.pdf [facility] Work Phone: End: 04-13-2024 XR WRIST INJURY 4V PA/LAT/OBL/SCAPH LEFT XR WRIST INJURY 4V PA/LAT/OBL/SCAPH LEFT Radiology Routine Left wrist pain 1 Occurrences starting 03/15/2023 until 04/13/2024 [facility] Work Phone: Immunizations Immunization Date Immunization Notes Care Provider Fa radha 08-08-2018 influenza, seasonal, injectable Mri (1.5t) [facility] Work Phone: 09-01-2017 influenza, seasonal, injectable Mri (1.5t) [facility] Work Phone: 06-02-2017 pneumococcal conjuga te vaccine, 13 valent Mri (1.5t) [facility] Work Phone: 01-21-2015 tetanus toxoid, reduced diphtheria toxoid, and acellular pertussis vaccine, adsorbed Mri (1.5t) [facility] Work Phone: 11-14-2013 influenza, seasonal, injectable Mri (1.5t) [facility] Work Phone: No information available. Sabrina Alexandre LPN [facility] Work Phone: Payers Date Payer Category Payer Unknown ANTHEM BLUE CROS S AND BLUE SHIELD ANTHEM MEDIBLUE HMO [id number] 2022-Present [phone] [address] [place] [address] HMO [id number] 2022 Medicaid PENDING 2022 Medicaid [id number] 2022 Medicare UHC MEDICARE [facility] DUAL COMPLETE HMO SNP [id number] 2022-Present [phone] [address] [place] [address] Medicare [id number] 2022 Medicare [id number] 2022 Unknown [id number] 2021 Medicaid [id number] 2021 Private Health Insurance SANDER SILVERIO PPO [id number] 2021-Present [phone] [address] [place] [address] PPO [id number] 2021 Unknown [id number] 2020 Medicaid [id number] 2014 Medicaid [id number] 2008 Medicare [id number] 2008 Medicare [id number] 2005 Private Health Insurance [id number] Social History Date Type Detail Facility Start: 06-30-2018 End: 06-30-2018 Assertion Unknown if ever smoked [facility] Work Phone: Start: 04-07-2018 End: 12-23-2022 Tobacco smoking status NHIS Never smoked tobacco [facility] Start: 01-27-2022 End: 12-23-2022 Alcohol intake Current non-drinker of alcohol (finding) [facility] Start: 1945 Sex Assigned At Not on file C [facility] Start: 01-26-2022 End: 09-23-2022 Exposure to SARS-CoV-2 (event) Not sure [facility] Start: 04-07-2018 End: 12-23-2022 Tobacco use and exposure Smokeless tobacco non-user [facility] Work Phone: Medical Equipment Procedure Code Equipment Code Equipment Origin al Text Equipment Identifier Dates System Xen Porci ne Dermis Glaucoma Injector Sterile Latex Free - [id number] Start: 09-10-2021 Clinical Notes 05-25-2021 to 03-16-2023 Patient InstructionsSudeep Carlton MD, PhD - 03/16/2023 9:15 AM EDTTelephone Encounter - Luann Herr - 12/01/2022 1:39 PM ESTTelephone Encounter - Desirae Gallegos - 12/01/2022 1:00 PM EST Note Date & Type Note Facility 03-16-2023 Note HNO ID: [id number] Author: Sudeep Carlton MD, PhD Service: ? Author Type: Physician Type: Progress Notes Filed: 03/16/2023 2:03 PM Note Text: March 16, 2023 CHIEF COMPLAINT: Left wrist ulnar sided pain HPI: Sharon Reed is a 77 year old RHD female who presents to clinic with left ulnar sided wrist pain. Bothers her with knitting and daily, but moderate in intensity. Stopped injections due to regional skin changes over injection site Occupation: Retired Hobbies: Knitting Pain: yes Weakness: no Paresthesia: no Decreased Motion:no Locking / Catching: no - clicking resolved Mass or Lesion: no HISTORY OF TRAUMA: no Fracture: no Dislocation: no Laceration: no PREVIOUS TREATMENTS: Injections: yes - 4 injections into left ulnar carpal joint Dr. Finley Medication: yes Splints: yes - ulnar hand exos Therapy:yes OT Other: No prior surgeries ASSESSMENT: 77 year old female with Left ulnar abutment syndrome, ulnar positive variance, TFCC degen tearing, radiocarpal arthritis. 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 Will schedule follow up PRN, we discussed options of further injections and also arthroscopic wafer resection of distal ulna but she is not interested in surgery at this time. OBJECTIVE: There were no vitals filed for this visit. There is no height or weight on file to calculate BMI. General: NAD Eyes: Pupils not pinpointed, not overly dilated, anicteric Neck: Full range of motion Cardiovascular: Palpable pulse and brisk capillary refill (<2 sec) to all fingers Lymphatic: Inspection of the arm/hand reveals no lymphedema and palpation of epitrochlear nodes is unremarkable. Respiratory: Respirations even and unlabored, no audible wheezing Integumentary: Inspection of skin reveals no breaks or obvious lesions except for those noted below. Neuro: Intact sensation to light touch over the median, ulnar, and radial nerve distributions. Psychiatric: No obvious anxiety, well kempt, normal affect. Appropriate response to pain. Musculoskeletal: Able to flex and extend all fingers at the DIP and PIP. Able to retropulse the thumb, abduct all fingers against resistance. Left wrist ROM 85 degrees flexion and extention, 85 degrees of pronation and supination. Resting radial deviation, painless radial deviation painful ulnar deviation. Snapping ECU but without pain. No significant DRUJ instability. ECU synergy test painful. Negative Tinel's and Gela's at the carpal tunnel. Sensation: SILT median (tip 2nd), ulnar (tip 5th), radial (dorsal 1st webspace) Motor: 5/5 AIN (FPL), median (FPB), ulnar (GILBERT), PIN (EPL), Radial (EDC) Tendon function intact to active resistance - FPL, FDP, FDS, FCU, FCR, APL, EIP, EDC, ECRL, ECU tested 2+ radial pulse, Fingertips pink/warm, CR < 2sec IMAGING: Xrays and MRI of left wrist demonstrates wrist arthritis with lunate cystic change and schpoid cystic change, degenerative TFCC changes on MRI Supporting Subjective Information Below: Past Medical History: PAST MEDICAL HISTORY Diagnosis Date Abdominal pain, left lower quadrant Diaphragmatic hernia without mention of obstruction or gangrene Diverticulosis of colon (without mention of hemorrhage) Esophageal reflux Generalized osteoarthrosis, unspecified site General Osteoarthritis left knee Myalgia and myositis, unspecified Primary hypertension 08/11/2021 Pure hypercholesterolemia Past Surgical History: PAST SURGICAL HISTORY Procedure Laterality Date AQUEOUS SHUNT EYE W/O GRAFT Right 09/10/2021 Xen Aqueous Shunt Right Eye CLSR ANAL FSTL W/RCT ADVMNT FLAP COLONOSCOPY FLX DX W/COLLJ SPEC WHEN PFRMD 06/29/2007 Colonoscopy DILATION AND CURETTAGE DXAND/THER NONOBSTETRIC Dilation AND curettage ESOPHAGOGASTRODUODENOSCOPY TRANSORAL DIAGNOSTIC 06/29/2007 EGD LIG/TRNSXJ FLP TUBE ABDL/VAG APPR UNI/BI Tubal ligation TRACTION (SPECIFY) Family History: FAMILY HISTORY Problem Relation Age of Onset Diabetes Sister Diabetes Brother Heart Daughter Heart Daughter Heart Son Heart Son Glaucoma Maternal Grandmother Medications: Current Outpatient Medications Medication Sig Dispense Refill VITAMIN D-3 50 mcg (2,000 unit) cap Take 1 capsule by mouth once daily. qbtf-TY-mod-tgf-BNO-BAUK-be-mv 1.5 mg iron- 8.73 mg CpID Take by mouth once daily. latanoprost (XALATAN) 0.005 % ophthalmic solution Use 1 Drop in the left eye once daily. Instill 1 drop in each eye at bedtime. 7.[address] (PROTONIX) 40 mg tablet TAKE 1 TABLET BY MOUTH 30-45 MINUTES BEFORE BREAKFAST atorvastatin (LIPITOR) 20 mg tablet daily at bedtime. cyclobenzaprine (FLEXERIL) 5 mg tablet Take 5 mg by mouth (more content not included)... [facility] 03-16-2023 Note HNO ID: [id number] Author: RT Saran(R) Service: ? Author Type: Technologist Type: Progress Notes Filed: 03/16/2023 8:57 AM Note Text: Radiology Service Progress Note PATIENT NAME: Sharon Reed DATE OF SERVICE: March 16, 2023 TIME: 8:56 AM PATIENT IDENTITY VERIFICATION COMPLETED USING TWO (2) IDENTIFIERS: Name and Date of confirmed by patient verbally. FALL SCREENING: Has the patient had 2 falls in the last year or 1 fall with injury or currently using an Ambulatory Assistive Device (Walker, Cane, Wheelchair, Crutches, etc.)? No PATIENT GENDER DATA: Female. status: : No status: NO. PATIENT RELEVANT IMPLANT DATA REVIEWED: Not Applicable RADIOLOGY DEPARTMENT: General X-ray: Exam(s) Completed: Upper Extremity X-Ray(s): Wrist, left PERIPHERAL IV DATA: Not applicable SIGNED BY: RT Saran(R) March 16, 2023 8:56 AM [facility] 03-16-2023 Instructions Sudeep Carlton MD, PhD - 03/16/2023 10:00 AM EDT WristWidget brace documented in this encounter [facility] 03-16-2023 History of Present illness Narrative March 16, 2023 CHIEF COMPLAINT: Left wrist ulnar sided pain HPI: Sharon Reed is a 77 year old RHD female who presents to clinic with left ulnar sided wrist pain. Bothers her with knitting and daily, but moderate in intensity. Stopped injections due to regional skin changes over injection site Occupation: Retired Hobbies: Knitting Pain: yes Weakness: no Paresthesia: no Decreased Motion:no Locking / Catching: no - clicking resolved Mass or Lesion: no HISTORY OF TRAUMA: no Fracture: no Dislocation: no Laceration: no PREVIOUS TREATMENTS: Injections: yes - 4 injections into left ulnar carpal joint Dr. Finley Medication: yes Splints: yes - ulnar hand exos Therapy:yes OT Other: No prior surgeries ASSESSMENT: 77 year old female with Left ulnar abutment syndrome, ulnar positive variance, TFCC degen tearing, radiocarpal arthritis. 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 Will schedule follow up PRN, we discussed options of further injections and also arthroscopic wafer resection of distal ulna but she is not interested in surgery at this time. OBJECTIVE: There were no vitals filed for this visit. There is no height or weight on file to calculate BMI. General: NAD Eyes: Pupils not pinpointed, not overly dilated, anicteric Neck: Full range of motion Cardiovascular: Palpable pulse and brisk capillary refill (<2 sec) to all fingers Lymphatic: Inspection of the arm/hand reveals no lymphedema and palpation of epitrochlear nodes is unremarkable. Respiratory: Respirations even and unlabored, no audible wheezing Integumentary: Inspection of skin reveals no breaks or obvious lesions except for those noted below. Neuro: Intact sensation to light touch over the median, ulnar, and radial nerve distributions. Psychiatric: No obvious anxiety, well kempt, normal affect. Appropriate response to pain. Musculoskeletal: Able to flex and extend all fingers at the DIP and PIP. Able to retropulse the thumb, abduct all fingers against resistance. Left wrist ROM 85 degrees flexion and extention, 85 degrees of pronation and supination. Resting radial deviation, painless radial deviation painful ulnar deviation. Snapping ECU but without pain. No significant DRUJ instability. ECU synergy test painful. Negative Tinel's and Gela's at the carpal tunnel. Sensation: SILT median (tip 2nd), ulnar (tip 5th), radial (dorsal 1st webspace) Motor: 5/5 AIN (FPL), median (FPB), ulnar (GILBERT), PIN (EPL), Radial (EDC) Tendon function intact to active resistance - FPL, FDP, FDS, FCU, FCR, APL, EIP, EDC, ECRL, ECU tested 2+ radial pulse, Fingertips pink/warm, CR < 2sec IMAGING: Xrays and MRI of left wrist demonstrates wrist arthritis with lunate cystic change and schpoid cystic change, degenerative TFCC changes on MRI Supporting Subjective Information Below: Past Medical History: PAST MEDICAL HISTORY Diagnosis Date Abdominal pain, left lower quadrant Diaphragmatic hernia without mention of obstruction or gangrene Diverticulosis of colon (without mention of hemorrhage) Esophageal reflux Generalized osteoarthrosis, unspecified site General Osteoarthritis left knee Myalgia and myositis, unspecified Primary hypertension 08/11/2021 Pure hypercholesterolemia Past Surgical History: PAST SURGICAL HISTORY Procedure Laterality Date AQUEOUS SHUNT EYE W/O GRAFT Right 09/10/2021 Xen Aqueous Shunt Right Eye CLSR ANAL FSTL W/RCT ADVMNT FLAP COLONOSCOPY FLX DX W/COLLJ SPEC WHEN PFRMD 06/29/2007 Colonoscopy DILATION & CURETTAGE DX&/THER NONOBSTETRIC Dilation & curettage ESOPHAGOGASTRODUODENOSCOPY TRANSORAL DIAGNOSTIC 06/29/2007 EGD LIG/TRNSXJ FLP TUBE ABDL/VAG APPR UNI/BI Tubal ligation TRACTION (SPECIFY) Family History: FAMILY HISTORY Problem Relation Age of Onset Diabetes Sister Diabetes Brother Heart Daughter Heart Daughter Heart Son Heart Son Glaucoma Maternal Grandmother Medications: Current Outpatient Medications Medication Sig Dispense Refill VITAMIN D-3 50 mcg (2,000 unit) cap Take 1 capsule by mouth once daily. vlxb-ED-lyr-nvv-YOB-HSNC-be-mv 1.5 mg iron- 8.73 mg CpID Take by mouth once daily. latanoprost (XALATAN) 0.005 % ophthalmic solution Use 1 Drop in the left eye once daily. Instill 1 drop in each eye at bedtime. 7.[address] (PROTONIX) 40 mg tablet TAKE 1 TABLET BY MOUTH 30-45 MINUTES BEFORE BREAKFAST atorvastatin (LIPITOR) 20 mg tablet daily at bedtime. cyclobenzaprine (FLEXERIL) 5 mg tablet Take 5 mg by mouth three times daily as needed. RESTASIS 0.05 % ophthalmic emulsion INSTILL 1 DROP INTO EACH EYE TWICE DAILY DIRECTED Verapamil HCl 360 mg 24 hr capsule VERAPAMIL HCL ER 360 MG [id number] brimonidine (ALPHAGAN) 0.2 % ophthalmic solution Use 1 Drop in the left eye every 12 hours. (Patient not taking: Reported on 03/16/2023) 5 mL 11 meloxicam (MOBIC) 7.5 mg tablet Take 1 tablet by mouth once daily. Take this directly following a meal (Patient not taking: Reported on 03/16/2023) 60 tablet 0 No current facility-administered medications for this visit. Allergies: ALLERGIES Allergen Reactions Codeine Hives, GI Upset, Itching, Other: See Comments Other reaction(s): Nausea Adhesive Tape-Silic* Unknown Latex Rash BLISTERS ON SKIN Tramadol Itching ROS: General (negative for fatigue) HEENT (negative for headache, earache, recent vision changes, sinus pain, sore throat) Respiratory (no recent shortness of breath, hemoptysis) CV (negative for chest tightness, palpitations) GI (negative for change in bowel habits) Hematologic (no spontaneous bleeding, bruising) Endocrine (no heat or cold intolerance) Brian Zelaya MD ATTENDING NOTE: I personally performed a history and physical examination on Sharon Reed to verify the one performed by Brian Zelaya MD. I reviewed their findings, plan and note, and have made changes above as needed so that I agree with the documentation. I discussed the plan with the patient. Magen Carlton MD, PhD Hand & Upper Extremity Orthopaedic Staff Surgeon documented in this encounter [facility] 12-23-2022 Note HNO ID: [id number] Author: Florence Finley, DO Service: ? Author Type: Physician Type: Progress Notes Filed: 12/23/2022 6:43 PM Note Text: Follow Up Visit Chief Complaint Sharon Reed is a 77 year old female who presents today for follow up office visit. Patient presents with: Left Wrist - Established Patient 5 months post visit left wrist pain History of Present Illness PAIN EVALUATION 12/23/2022 1143 Pain Level: 9 Pain Location: Wrist-Left Description: Sharp;Dull;Stiffness Duration Amount of Time: -- Ongoing Frequency: Intermittent Intervention/Comfort measure: Medication HPI: Sharon Reed is a 77 year old female for a follow up visit Left wrist pain. Pain history is noted as above. Patient states she is continuing to have pain in her wrist. The pain can radiate up into her upper arm. Continuing to wear wrist. Taking Meloxicam for the pain. No sob, chest pain Is there any overall improvement in your condition? Yes, Some days are better than others. Any new injury, since being seen last: No REVIEW OF SYMPTOMS: Patient did not have, and does not currently have, any weight loss, malaise, fever, chills, headache, chest pain, chest pressure, palpitations, cough, shortness of breath, orthopnea, paroxsymal nocturnal dyspnea, nausea, vomiting, diarrhea, constipation, melena, hematochezia, urinary difficulties, prolonged bleeding, easily bruising, heat or cold intolerance, new onset joint pain or swelling, new onset extremity weakness or numbness, new onset auditory or visual disturbances, lightheadedness, dizziness, partial loss of consciousness or full loss of consciousness. Current Outpatient Medications Medication Sig VITAMIN D-3 50 mcg (2,000 unit) cap Take 1 capsule by mouth once daily. tfqy-SD-byp-drj-UPQ-VJAJ-be-mv 1.5 mg iron- 8.73 mg CpID Take by mouth once daily. brimonidine (ALPHAGAN) 0.2 % ophthalmic solution Use 1 Drop in the left eye every 12 hours. latanoprost (XALATAN) 0.005 % ophthalmic solution Use 1 Drop in the left eye once daily. Instill 1 drop in each eye at bedtime. pantoprazole DR (PROTONIX) 40 mg tablet TAKE 1 TABLET BY MOUTH 30-45 MINUTES BEFORE BREAKFAST atorvastatin (LIPITOR) 20 mg tablet daily at bedtime. cyclobenzaprine (FLEXERIL) 5 mg tablet Take 5 mg by mouth three times daily as needed. meloxicam (MOBIC) 7.5 mg tablet Take 1 tablet by mouth once daily. Take this directly following a meal RESTASIS 0.05 % ophthalmic emulsion INSTILL 1 DROP INTO EACH EYE TWICE DAILY DIRECTED Verapamil HCl 360 mg 24 hr capsule VERAPAMIL HCL ER 360 MG [id number] No current facility-administered medications for this visit. Physical Exam Vitals: There were no vitals taken for this visit. Psych: Pleasant, good affect and mood General Appearance: Well appearing, alert, in no acute distress, well-hydrated, well nourished.. Skin: Skin color, texture, turgor normal, no suspicious rashes or lesions. Peripheral Pulses: Normal. Neurologic: Gait normal. Reflexes normal and symmetric. Sensation grossly intact.. Lymph Nodes: No cervical lymphadenopathy, No supraclavicular lymphadenopathy, No axillary lymphadenopathy., and No inguinal lymphadenopathy.. Respiratory: No recent pulmonary infection, hemoptysis, chronic cough, or shortness of breath at rest Rheumatologic: Joint deformities: left wrist pain Right Knee Exam Right knee exam is normal. Muscle Strength The patient has normal right knee strength. Tenderness The patient is experiencing no tenderness. Range of Motion Extension: normal Flexion: normal Tests Erlin: Anterior - negative Posterior - negative Drawer: Anterior - negative Posterior - negative Other Erythema: absent Sensation: normal Pulse: present Swelling: none Left Knee Exam Tenderness The patient is experiencing tenderness in the medial joint line and lateral joint line. Range of Motion Extension: abnormal Flexion: abnormal Tests Erlin: Anterior - negative Posterior - negative Drawer: Anterior - negative Posterior - negative Other Erythema: absent Sensation: normal Pulse: present Swelling: none Comments: Neg homans bilaterally Focused examination of Left knee, patient has mild laxity and slight joint space opening MEDIAL with valgus stress. Right Hand Exam Right hand exam is normal. Tenderness The patient is experiencing no tenderness. Range of Motion The patient has normal right wrist ROM. Wrist Extension: normal Flexion: normal Pronation: normal Supination: normal Muscle Strength The patient has normal right wrist strength. Tests Phalen?s Sign: negative Tinel's sign (median nerve): negative Mian's test: negative Other Erythema: absent Sensation: normal Pulse: present Comments: B/l med/uln/rad/ax nerves intact Left Hand Exam Tenderness The patient is experiencing tenderness in the ulnar area. Range of Motion (more content not included)... [facility] 12-01-2022 Miscellaneous Notes Patient wanted to schedule a follow up with . Patient called in and left a voicemail message asking to schedule an appointment with Dr. Yousif. She also mentioned she wanted to see him in [place] which he does not go there. Please give her a call and offer her an appointment in [place]. Dr. Jones and Dr. Finley all see patient's in [place] I am not sure if she would be interested in seeing any one of those providers. She can be reached at [phone]. Desirae Cedeno documented in this encounter [facility] 09-23-2022 Note HNO ID: [id number] Author: Florence Finley, DO Service: ? Author Type: Physician Type: Progress Notes Filed: 09/30/2022 11:09 AM Note Text: Follow Up Visit Chief Complaint Sharon Reed is a 77 year old female who presents today for follow up office visit. Patient presents with: Left Shoulder - Established Patient, Follow Up History of Present Illness PAIN EVALUATION 09/23/2022 1148 Pain Level: 3 Pain Location: Shoulder-Left Description: Sharp;Aching;Dull Duration Amount of Time: -- ongoing Frequency: Continuous Intervention/Comfort measure: Other: See comment none HPI: Sharon Reed is a 77 year old female for a follow up visit left shoulder and left wrist. Pain history is noted as above. No new changes, left shoulder feels better after last injection, fback eels better after injection from yesterday. Left back and knee ablation injections killing nerves in back and knee - feels better in back, just got it yesterday. Is there any overall improvement in your condition? Yes, intermittently but wrist still painful Any new injury, since being seen last: No REVIEW OF SYMPTOMS: Patient did not have, and does not currently have, any weight loss, malaise, fever, chills, headache, chest pain, chest pressure, palpitations, cough, shortness of breath, orthopnea, paroxsymal nocturnal dyspnea, nausea, vomiting, diarrhea, constipation, melena, hematochezia, urinary difficulties, prolonged bleeding, easily bruising, heat or cold intolerance, new onset joint pain or swelling, new onset extremity weakness or numbness, new onset auditory or visual disturbances, lightheadedness, dizziness, partial loss of consciousness or full loss of consciousness. Current Outpatient Medications Medication Sig VITAMIN D-3 50 mcg (2,000 unit) cap Take 1 capsule by mouth once daily. [id number]-OI-[id number]-be-mv 1.5 mg iron- 8.73 mg CpID Take by mouth once daily. brimonidine (ALPHAGAN) 0.2 % ophthalmic solution Use 1 Drop in the left eye every 12 hours. latanoprost (XALATAN) 0.005 % ophthalmic solution Use 1 Drop in the left eye once daily. Instill 1 drop in each eye at bedtime. pantoprazole DR (PROTONIX) 40 mg tablet TAKE 1 TABLET BY MOUTH 30-45 MINUTES BEFORE BREAKFAST atorvastatin (LIPITOR) 20 mg tablet daily at bedtime. cyclobenzaprine (FLEXERIL) 5 mg tablet Take 5 mg by mouth three times daily as needed. meloxicam (MOBIC) 7.5 mg tablet Take 1 tablet by mouth once daily. Take this directly following a meal RESTASIS 0.05 % ophthalmic emulsion INSTILL 1 DROP INTO EACH EYE TWICE DAILY DIRECTED Verapamil HCl 360 mg 24 hr capsule VERAPAMIL HCL ER 360 MG [id number] No current facility-administered medications for this visit. Physical Exam Vitals: There were no vitals taken for this visit. Psych: Pleasant, good affect and mood General Appearance: Well appearing, alert, in no acute distress, well-hydrated, well nourished.. Skin: Skin color, texture, turgor normal, no suspicious rashes or lesions. Peripheral Pulses: Normal. Neurologic: Gait normal. Reflexes normal and symmetric. Sensation grossly intact.. Lymph Nodes: No cervical lymphadenopathy, No supraclavicular lymphadenopathy, No axillary lymphadenopathy., and No inguinal lymphadenopathy.. Respiratory: No recent pulmonary infection, hemoptysis, chronic cough, or shortness of breath at rest Rheumatologic: Joint deformities: Left shoudler pain Right Knee Exam Right knee exam is normal. Muscle Strength The patient has normal right knee strength. Tenderness The patient is experiencing no tenderness. Range of Motion Extension: normal Flexion: normal Tests Erlin: Anterior - negative Posterior - negative Drawer: Anterior - negative Posterior - negative Other Erythema: absent Sensation: normal Pulse: present Swelling: none Left Knee Exam Tenderness The patient is experiencing tenderness in the medial joint line and lateral joint line. Range of Motion Extension: abnormal Flexion: abnormal Tests Erlin: Anterior - negative Posterior - negative Drawer: Anterior - negative Posterior - negative Other Erythema: absent Sensation: normal Pulse: present Swelling: none Comments: Neg homans bilaterally Focused examination of Left knee, patient has mild laxity and slight joint space opening MEDIAL with valgus stress. Right Hand Exam Right hand exam is normal. Tenderness The patient is experiencing no tenderness. Range of Motion The patient has normal right wrist ROM. Wrist Extension: normal Flexion: normal Pronation: normal Supination: normal Muscle Strength The patient has normal right wrist strength. Tests Phalen?s Sign: negative Tinel's sign (median nerve): negative Mian's test: negative Other Erythema: absent Sensation: normal Pulse: present Comments: B/l med/uln/rad/ax nerves intact Left Hand Exam Tenderness The (more content not included)... [facility] 09-23-2022 History of Present illness Narrative Images from the original note were not included. Follow Up Visit Chief Complaint Sharon Reed is a 77 year old female who presents today for follow up office visit. Patient presents with: Left Shoulder - Established Patient, Follow Up History of Present Illness PAIN EVALUATION 09/23/2022 1148 Pain Level: 3 Pain Location: Shoulder-Left Description: Sharp;Aching;Dull Duration Amount of Time: -- ongoing Frequency: Continuous Intervention/Comfort measure: Other: See comment none HPI: Sharon Reed is a 77 year old female for a follow up visit left shoulder and left wrist. Pain history is noted as above. No new changes, left shoulder feels better after last injection, fback eels better after injection from yesterday. Left back and knee ablation injections killing nerves in back and knee - feels better in back, just got it yesterday. Is there any overall improvement in your condition? Yes, intermittently but wrist still painful Any new injury, since being seen last: No REVIEW OF SYMPTOMS: Patient did not have, and does not currently have, any weight loss, malaise, fever, chills, headache, chest pain, chest pressure, palpitations, cough, shortness of breath, orthopnea, paroxsymal nocturnal dyspnea, nausea, vomiting, diarrhea, constipation, melena, hematochezia, urinary difficulties, prolonged bleeding, easily bruising, heat or cold intolerance, new onset joint pain or swelling, new onset extremity weakness or numbness, new onset auditory or visual disturbances, lightheadedness, dizziness, partial loss of consciousness or full loss of consciousness. Current Outpatient Medications Medication Sig VITAMIN D-3 50 mcg (2,000 unit) cap Take 1 capsule by mouth once daily. [id number]-PD-[id number]-[id number]-GBV-[id number]-be-mv 1.5 mg iron- 8.73 mg CpID Take by mouth once daily. brimonidine (ALPHAGAN) 0.2 % ophthalmic solution Use 1 Drop in the left eye every 12 hours. latanoprost (XALATAN) 0.005 % ophthalmic solution Use 1 Drop in the left eye once daily. Instill 1 drop in each eye at bedtime. pantoprazole DR (PROTONIX) 40 mg tablet TAKE 1 TABLET BY MOUTH 30-45 MINUTES BEFORE BREAKFAST atorvastatin (LIPITOR) 20 mg tablet daily at bedtime. cyclobenzaprine (FLEXERIL) 5 mg tablet Take 5 mg by mouth three times daily as needed. meloxicam (MOBIC) 7.5 mg tablet Take 1 tablet by mouth once daily. Take this directly following a meal RESTASIS 0.05 % ophthalmic emulsion INSTILL 1 DROP INTO EACH EYE TWICE DAILY DIRECTED Verapamil HCl 360 mg 24 hr capsule VERAPAMIL HCL ER 360 MG [id number] No current facility-administered medications for this visit. Physical Exam Vitals: There were no vitals taken for this visit. Psych: Pleasant, good affect and mood General Appearance: Well appearing, alert, in no acute distress, well-hydrated, well nourished.. Skin: Skin color, texture, turgor normal, no suspicious rashes or lesions. Peripheral Pulses: Normal. Neurologic: Gait normal. Reflexes normal and symmetric. Sensation grossly intact.. Lymph Nodes: No cervical lymphadenopathy, No supraclavicular lymphadenopathy, No axillary lymphadenopathy., and No inguinal lymphadenopathy.. Respiratory: No recent pulmonary infection, hemoptysis, chronic cough, or shortness of breath at rest Rheumatologic: Joint deformities: Left shoudler pain Right Hand Exam Right hand exam is normal. Tenderness The patient is experiencing no tenderness. Range of Motion The patient has normal right wrist ROM. Wrist Extension: normal Flexion: normal Pronation: normal Supination: normal Muscle Strength The patient has normal right wrist strength. Tests Phalen s Sign: negative Tinel's sign (median nerve): negative Mian's test: negative Other Erythema: absent Sensation: normal Pulse: present Comments: B/l med/uln/rad/ax nerves intact Left Hand Exam Tenderness The patient is experiencing tenderness in the ulnar area. Range of Motion Wrist Extension: abnormal Flexion: abnormal Pronation: abnormal Supination: abnormal Muscle Strength The patient has normal left wrist strength. Tests Phalen s Sign: negative Tinel's sign (median nerve): negative Mian's test: negative Other Erythema: absent Sensation: normal Pulse: present Comments: Ttp distal ulna/ pain with ext/flex/sup/pron max rom Snapping ecu tendon with swelling distal ulna ttp tfcc Assessment and Plan Radiographs: No imaging to review. Last XR Shoulder - Impression Only XR SHOULDER GENERAL 3V OR MORE AP/TRUE AP/OTHER LEFT Exam End: 07/28/2022 1:47 PM (Final result) Impression: IMPRESSION: Possible calcific rotator cuff tendinosis. Cellular Biologist: JEMMA Transcribe Date/Time: Jul 28 2022 3:49P Dictated by : MICKI OH MD ... Last MRI Shoulder - Impression Only No resulted procedures found. Last MRI Wrist - Impression Only MRI WRIST WO IVCON LT Exam End: 03/04/2022 10:34 AM (Final result) Impression: IMPRESSION: 1. Tear of the central articular disc of the TFCC. There is partial tearing of the palmar radial attachment of the TFCC and partial tearing of the peripheral attachments of the TFCC. 2. Tearing of the palmar scapholunate ligaments. No widening of the scapholunate interval. 3. Poor delineation of the lunotriquetral ligaments which are likely intact as there is no widening of the lunotriquetral interval.... 4. Mild tenosynovitis versus physiologic fluid adjacent to the extensor carpi radialis tendons and the flexor pollicis longus tendon. 5. Osteoarthrosis of the wrist. 6. Small distal radial ulnar joint effusion. Impression: Encounter Diagnosis ICD-10-CM 1. Chronic left shoulder pain M25.512 G89.29 2. Impingement syndrome of left shoulder M75.42 3. Calcific tendinitis of left shoulder M75.32 Today, in detail, through a thorough evaluation, we discussed possible etiologies of pain and our plans for further diagnostic and therapeutic interventions. We discussed strategies for decreasing pain and improving strength, stability and motion. Patient's questions were answered in detailed. Patient verbalizes understanding and agrees with the treatment plan as discussed. Patient still having considerable amount of pain in distal ulna and wrist worse with provc treatment , wrist brace Has had injections, brace, and surgery may be next step so will defer to hand partner for evaluation/treatment- dr gutierrez Left shoulder improved, if has recurrence we will discuss steroid injection in left shoulder at next visit if 3 to 4 months after initial injection due to calcific tendinitis Will defer to Dr. Gutierrez if surgery is indicated for her left wrist Call with increased pain numbness tingle further issues arise Staff message sent Dragon disclaimer comment: Please note this report has been produced using speech recognition software and may contain errors related to that system including errors in grammar, punctuation, and spelling, as well as words and phrases that may be inappropriate. If there are any questions or concerns please feel free to contact the dictating provider for clarification. I spent 30 minutes in the visit, with more than 50% of the total [id number] time of the visit in counseling / coordination of care. documented in this encounter [facility] 08-30-2022 Miscellaneous Notes Thomas Mcdowell MD 12:47 PM Note She has returned to [facility] and should request he refill her eye medications. documented in this encounter [facility] 07-28-2022 Note HNO ID: [id number] Author: Florence Finley DO Service: ? Author Type: Physician Type: Progress Notes Filed: 08/10/2022 7:37 AM Note Text: Follow Up Visit Chief Complaint Sharon Reed is a 76 year old female who presents today for follow up office visit. Patient presents with: Left Wrist - Follow Up, Pain History of Present Illness PAIN EVALUATION 07/28/2022 1130 Pain Level: 9 Pain Location: Arm-Left Description: Sharp;Tightness Duration Amount of Time: -- ongoing Frequency: Continuous Intervention/Comfort measure: Positioning;Medication;Heat;Cold HPI: Sharon Reed is a 76 year old female for a follow up visit for left shoulder. Pain history is noted as above. Patient was given ionto patches in occupational therapy which did help. Pain is radiating up into the shoulder and worse with certain movements, especially the past 3 days. No chest pain, sob, new numbness tingling or other radiating issues. Is there any overall improvement in your condition? No Any new injury, since being seen last: No REVIEW OF SYMPTOMS: Patient did not have, and does not currently have, any weight loss, malaise, fever, chills, headache, chest pain, chest pressure, palpitations, cough, shortness of breath, orthopnea, paroxsymal nocturnal dyspnea, nausea, vomiting, diarrhea, constipation, melena, hematochezia, urinary difficulties, prolonged bleeding, easily bruising, heat or cold intolerance, new onset joint pain or swelling, new onset extremity weakness or numbness, new onset auditory or visual disturbances, lightheadedness, dizziness, partial loss of consciousness or full loss of consciousness. Current Outpatient Medications Medication Sig VITAMIN D-3 50 mcg (2,000 unit) cap Take 1 capsule by mouth once daily. [id number]-VS-[id number]-[id number]-UXG-[id number]-be-mv 1.5 mg iron- 8.73 mg CpID Take by mouth once daily. brimonidine (ALPHAGAN) 0.2 % ophthalmic solution Use 1 Drop in the left eye every 12 hours. latanoprost (XALATAN) 0.005 % ophthalmic solution Use 1 Drop in the left eye once daily. Instill 1 drop in each eye at bedtime. pantoprazole DR (PROTONIX) 40 mg tablet TAKE 1 TABLET BY MOUTH 30-45 MINUTES BEFORE BREAKFAST atorvastatin (LIPITOR) 20 mg tablet daily at bedtime. cyclobenzaprine (FLEXERIL) 5 mg tablet Take 5 mg by mouth three times daily as needed. meloxicam (MOBIC) 7.5 mg tablet Take 1 tablet by mouth once daily. Take this directly following a meal RESTASIS 0.05 % ophthalmic emulsion INSTILL 1 DROP INTO EACH EYE TWICE DAILY DIRECTED Verapamil HCl 360 mg 24 hr capsule VERAPAMIL HCL ER 360 MG [id number] No current facility-administered medications for this visit. Physical Exam Vitals: There were no vitals taken for this visit. Psych: Pleasant, good affect and mood General Appearance: Well appearing, alert, in no acute distress, well-hydrated, well nourished.. Skin: Skin color, texture, turgor normal, no suspicious rashes or lesions. Peripheral Pulses: Normal. Neurologic: Gait normal. Reflexes normal and symmetric. Sensation grossly intact.. Lymph Nodes: No cervical lymphadenopathy, No supraclavicular lymphadenopathy, No axillary lymphadenopathy., and No inguinal lymphadenopathy.. Respiratory: No recent pulmonary infection, hemoptysis, chronic cough, or shortness of breath at rest Rheumatologic: Joint deformities: left shoulder pain Right Shoulder Exam Right shoulder exam is normal. Tenderness The patient is experiencing no tenderness. Range of Motion Active abduction: normal Passive abduction: normal Extension: normal External rotation: normal Forward flexion: normal Internal rotation 0 degrees: normal Internal rotation 90 degrees: normal Muscle Strength Abduction: 5/5 Internal rotation: 5/5 External rotation: 5/5 Supraspinatus: 5/5 Subscapularis: 5/5 Biceps: 5/5 Tests Apprehension: negative Spence test: negative Cross arm: negative Impingement: negative Other Erythema: absent Sensation: normal Pulse: present Left Shoulder Exam Left shoulder exam is normal. Tenderness The patient is experiencing tenderness in the biceps tendon. Range of Motion Active abduction: normal Passive abduction: normal Extension: normal External rotation: normal Forward flexion: normal Internal rotation 0 degrees: normal Internal rotation 90 degrees: normal Muscle Strength Abduction: 4/5 Internal rotation: 4/5 External rotation: 4/5 Supraspinatus: 4/5 Subscapularis: 4/5 Biceps: 4/5 Tests Apprehension: negative Spence test: positive Cross arm: negative Impingement: positive Other Erythema: absent Sensation: normal Pulse: present Comments: Med,uln, rad nerves intact, ax nerves intact Neg spurlings Assessment and Plan Radiographs: I have independently reviewed films and my findings are the same. Last XR Shoulder - Impression Only XR SHOULDER GENERAL 3V OR MORE AP/TRUE AP/OTHER LEFT Exam E (more content not included)... [facility] 07-28-2022 Note HNO ID: [id number] Author: GRECIA Mckenzie Service: Radiology Author Type: Technologist Type: Progress Notes Filed: 07/28/2022 1:48 PM Note Text: Radiology Service Progress Note PATIENT NAME: Sharon Reed DATE OF SERVICE: July 28, 2022 TIME: 1:48 PM PATIENT IDENTITY VERIFICATION COMPLETED USING TWO (2) IDENTIFIERS: Name and Date of confirmed by patient verbally. FALL SCREENING: Has the patient had 2 falls in the last year or 1 fall with injury or currently using an Ambulatory Assistive Device (Walker, Cane, Wheelchair, Crutches, etc.)? Yes, Patient High Risk for Falls What interventions were put in place to prevent falls during this visit? Offered Assistance with Transfers/Clothing and Increased Observations by Caregivers PATIENT GENDER DATA: Female. status: : No status: NO. PATIENT RELEVANT IMPLANT DATA REVIEWED: Not Applicable RADIOLOGY DEPARTMENT: General X-ray: Exam(s) Completed: Upper Extremity X-Ray(s): Shoulder, AP / TRUE AP / AXILLARY / SUPRA OUTLET left PERIPHERAL IV DATA: Not applicable SIGNED BY: GRECIA Mckenzie July 28, 2022 1:48 PM [facility] 07-28-2022 History of Present illness Narrative Associated Order(s): Large Joint Arthro/Inj: L subacromial bursa Post-Procedure Diagnose(s): Chronic left shoulder pain; Calcific tendinitis of left shoulder; Impingement syndrome of left shoulder Images from the original note were not included. Follow Up Visit Chief Complaint Sharon Reed is a 76 year old female who presents today for follow up office visit. Patient presents with: Left Wrist - Follow Up, Pain History of Present Illness PAIN EVALUATION 07/28/2022 1130 Pain Level: 9 Pain Location: Arm-Left Description: Sharp;Tightness Duration Amount of Time: -- ongoing Frequency: Continuous Intervention/Comfort measure: Positioning;Medication;Heat;Cold HPI: Sharon Reed is a 76 year old female for a follow up visit for left shoulder. Pain history is noted as above. Patient was given ionto patches in occupational therapy which did help. Pain is radiating up into the shoulder and worse with certain movements, especially the past 3 days. No chest pain, sob, new numbness tingling or other radiating issues. Is there any overall improvement in your condition? No Any new injury, since being seen last: No REVIEW OF SYMPTOMS: Patient did not have, and does not currently have, any weight loss, malaise, fever, chills, headache, chest pain, chest pressure, palpitations, cough, shortness of breath, orthopnea, paroxsymal nocturnal dyspnea, nausea, vomiting, diarrhea, constipation, melena, hematochezia, urinary difficulties, prolonged bleeding, easily bruising, heat or cold intolerance, new onset joint pain or swelling, new onset extremity weakness or numbness, new onset auditory or visual disturbances, lightheadedness, dizziness, partial loss of consciousness or full loss of consciousness. Current Outpatient Medications Medication Sig VITAMIN D-3 50 mcg (2,000 unit) cap Take 1 capsule by mouth once daily. yfvy-AC-pif-tlc-PDP-[id number]-be-mv 1.5 mg iron- 8.73 mg CpID Take by mouth once daily. brimonidine (ALPHAGAN) 0.2 % ophthalmic solution Use 1 Drop in the left eye every 12 hours. latanoprost (XALATAN) 0.005 % ophthalmic solution Use 1 Drop in the left eye once daily. Instill 1 drop in each eye at bedtime. pantoprazole DR (PROTONIX) 40 mg tablet TAKE 1 TABLET BY MOUTH 30-45 MINUTES BEFORE BREAKFAST atorvastatin (LIPITOR) 20 mg tablet daily at bedtime. cyclobenzaprine (FLEXERIL) 5 mg tablet Take 5 mg by mouth three times daily as needed. meloxicam (MOBIC) 7.5 mg tablet Take 1 tablet by mouth once daily. Take this directly following a meal RESTASIS 0.05 % ophthalmic emulsion INSTILL 1 DROP INTO EACH EYE TWICE DAILY DIRECTED Verapamil HCl 360 mg 24 hr capsule VERAPAMIL HCL ER 360 MG [id number] No current facility-administered medications for this visit. Physical Exam Vitals: There were no vitals taken for this visit. Psych: Pleasant, good affect and mood General Appearance: Well appearing, alert, in no acute distress, well-hydrated, well nourished.. Skin: Skin color, texture, turgor normal, no suspicious rashes or lesions. Peripheral Pulses: Normal. Neurologic: Gait normal. Reflexes normal and symmetric. Sensation grossly intact.. Lymph Nodes: No cervical lymphadenopathy, No supraclavicular lymphadenopathy, No axillary lymphadenopathy., and No inguinal lymphadenopathy.. Respiratory: No recent pulmonary infection, hemoptysis, chronic cough, or shortness of breath at rest Rheumatologic: Joint deformities: left shoulder pain Right Shoulder Exam Right shoulder exam is normal. Tenderness The patient is experiencing no tenderness. Range of Motion Active abduction: normal Passive abduction: normal Extension: normal External rotation: normal Forward flexion: normal Internal rotation 0 degrees: normal Internal rotation 90 degrees: normal Muscle Strength Abduction: 5/5 Internal rotation: 5/5 External rotation: 5/5 Supraspinatus: 5/5 Subscapularis: 5/5 Biceps: 5/5 Tests Apprehension: negative Spence test: negative Cross arm: negative Impingement: negative Other Erythema: absent Sensation: normal Pulse: present Left Shoulder Exam Left shoulder exam is normal. Tenderness The patient is experiencing tenderness in the biceps tendon. Range of Motion Active abduction: normal Passive abduction: normal Extension: normal External rotation: normal Forward flexion: normal Internal rotation 0 degrees: normal Internal rotation 90 degrees: normal Muscle Strength Abduction: 4/5 Internal rotation: 4/5 External rotation: 4/5 Supraspinatus: 4/5 Subscapularis: 4/5 Biceps: 4/5 Tests Apprehension: negative Spence test: positive Cross arm: negative Impingement: positive Other Erythema: absent Sensation: normal Pulse: present Comments: Med,uln, rad nerves intact, ax nerves intact Neg spurlings Assessment and Plan Radiographs: I have independently reviewed films and my findings are the same. Last XR Shoulder - Impression Only XR SHOULDER GENERAL 3V OR MORE AP/TRUE AP/OTHER LEFT Exam End: 07/28/2022 1:47 PM (Final result) Impression: IMPRESSION: Possible calcific rotator cuff tendinosis. Cellular Biologist: JEMMA Transcribe Date/Time: Jul 28 2022 3:49P Dictated by : MICKI OH MD ... Impression: Encounter Diagnosis ICD-10-CM 1. Chronic left shoulder pain M25.512 XR SHOULDER GENERAL 3V OR MORE AP/TRUE AP/OTHER LEFT G89.29 2. Impingement syndrome of left shoulder M75.42 3. Calcific tendinitis of left shoulder M75.32 Today, in detail, through a thorough evaluation, we discussed possible etiologies of pain and our plans for further diagnostic and therapeutic interventions. We discussed strategies for decreasing pain and improving strength, stability and motion. Patient's questions were answered in detailed. Patient verbalizes understanding and agrees with the treatment plan as discussed. Discussed with patient possible options for treatment. Patient elected proceed with injection. Patient told not to submerge the injected area for 24 hours in a hot tub, or bath, injection may take 2 weeks for improvement to be noticed, follow-up in 2 -6 weeks if symptoms do not resolve. All questions answered patient agreement of plan. Apply ice Limit activities as discussed Rest Do not submerge limb in water for 24 hours Cont current meds Watch sugars/decrease carbs Call if warm/hot/red Discussed with patient that if the injection does not work after 2 to 4 weeks to come back for reevaluation. Discussed the next 3 days may feel worse before it feels better. Discussed if having continued pain to return. May get injection every 3 months Large Joint Arthro/Inj: L subacromial bursa Informed Consent Consent Obtained: Verbal Orwell Protocol A moment to CARE was completed. SIGN IN Personnel directly involved with the procedure wore the appropriate PPE. Special Equipment: N/A Patient/Surrogate Stated/Verified: Patient name, Date of , Relevant allergies and Intended procedure TIME OUT Intended patient and procedure match the source document(s). Consent documented and matches the intended procedure. Relevant labs, photos, and/or imaging studies have been reviewed. Correct side/site marked and visible. Medications required for procedure verified. Fire risk assessed and interventions discussed. No implant(s) inserted. 08/03/2022 10:36 AM The procedure site was prepped in the usual sterile fashion. Site: L subacromial bursa Medications: 80 mg triamcinolone acetonide 40 mg/mL Anesthetics: 8 mL bupivacaine (PF) 0.5 % (5 mg/mL) Outcome: Tolerated well, no immediate complications Post-injection instructions were reviewed with the patient and the patient voiced understanding of these instructions. SIGN OUT All specimen containers correctly labeled. All instruments, equipment, possible retained foreign bodies accounted for. Post-procedure follow-up management communicated and Plan of Care Visit completed when applicable documented in this encounter [facility] 07-28-2022 History of Present illness Narrative Radiology Service Progress Note PATIENT NAME: Sharon Reed DATE OF SERVICE: July 28, 2022 TIME: 1:48 PM PATIENT IDENTITY VERIFICATION COMPLETED USING TWO (2) IDENTIFIERS: Name and Date of confirmed by patient verbally. FALL SCREENING: Has the patient had 2 falls in the last year or 1 fall with injury or currently using an Ambulatory Assistive Device (Walker, Cane, Wheelchair, Crutches, etc.)? Yes, Patient High Risk for Falls What interventions were put in place to prevent falls during this visit? Offered Assistance with Transfers/Clothing and Increased Observations by Caregivers PATIENT GENDER DATA: Female. status: : No status: NO. PATIENT RELEVANT IMPLANT DATA REVIEWED: Not Applicable RADIOLOGY DEPARTMENT: General X-ray: Exam(s) Completed: Upper Extremity X-Ray(s): Shoulder, AP / TRUE AP / AXILLARY / SUPRA OUTLET left PERIPHERAL IV DATA: Not applicable SIGNED BY: GRECIA Mckenzie July 28, 2022 1:48 PM documented in this encounter [facility] 07-22-2022 Note HNO ID: [id number] Author: Arianne Sorensen OT/L Service: ? Author Type: Occupational Therapist Type: Progress Notes Filed: 07/22/2022 11:29 AM Note Text: Episode Visit Count: 4 Therapist That Will Oversee The Plan Of Care: Jose Maria Acuña Start of Care Date: 11/12/21 Onset Date: 02/19/21 Plan of Care Certification Date: 11/12/21 Next Certification Due Date: 01/14/22 Patient Identified by Name and Date of : Yes REHABILITATION AND SPORTS THERAPY OCCUPATIONAL THERAPY DISCONTINUANCE OF CARE PLAN OF CARE UPDATE: Assessment: Sharon Reed is discontinued from Occupational Therapy services due to maximal benefit.. Patient was seen for 4 visits from Start of Care Date: 11/12/21 to 07/22/2022 and treatment included: Self-correction management and Prefabricated orthosis fitting. She is scheduled to see MD next week Patient will report a good understanding of diagnosis and OT recommendations for progression of program.MET Patient will demonstrate independence with ongoing home recommendations/exercise program throughout therapy plan of care.MET SUBJECTIVE: left hand pain, pt did receive the dex for ionto, but never got back in for the patch reports her wrist is better but when she takes brace off she has increased pain up to her shoulder Pain: Pain Pain Level: 2 PROMIS Scales T-scores: mean of general population = 50. 5 points is clinically meaningfully difference Percentiles provide an indication of how the patient's score ranks in relation to the general population. Higher percentile rankings indicate better function/quality of life. 50th percentile is the average of the general population and indicates half of respondents had a worse score. T-scores: mean of general population = 50. 5 points is clinically meaningfully difference Percentiles provide an indication of how the patient's score ranks in relation to the general population. Higher percentile rankings indicate better function/quality of life. 50th percentile is the average of the general population and indicates half of respondents had a worse score. 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 3: provided with written instructions, pt attends a day treatment center which has nursing available she reports they will help her with the application 4: pt to continue with splinting as it helps her pain Skilled Intervention: Provided written instruction for activities of daily living techniques to facilitate proper performance and compliance. Billing Self-Care/Home Management Treatment Minutes: 20 Arianne Sorensen OT/[facility] 07-22-2022 History of Present illness Narrative Episode Visit Count: 4 Therapist That Will Oversee The Plan Of Care: Jose Maria Acuña Start of Care Date: 11/12/21 Onset Date: 02/19/21 Plan of Care Certification Date: 11/12/21 Next Certification Due Date: 01/14/22 Patient Identified by Name and Date of : Yes REHABILITATION AND SPORTS THERAPY OCCUPATIONAL THERAPY DISCONTINUANCE OF CARE PLAN OF CARE UPDATE: Assessment: Sharon Reed is discontinued from Occupational Therapy services due to maximal benefit.. Patient was seen for 4 visits from Start of Care Date: 11/12/21 to 07/22/2022 and treatment included: Self-correction management and Prefabricated orthosis fitting. She is scheduled to see MD next week Patient will report a good understanding of diagnosis and OT recommendations for progression of program.MET Patient will demonstrate independence with ongoing home recommendations/exercise program throughout therapy plan of care.MET SUBJECTIVE: left hand pain, pt did receive the dex for ionto, but never got back in for the patch reports her wrist is better but when she takes brace off she has increased pain up to her shoulder Pain: Pain Pain Level: 2 PROMIS Scales T-scores: mean of general population = 50. 5 points is clinically meaningfully difference Percentiles provide an indication of how the patient's score ranks in relation to the general population. Higher percentile rankings indicate better function/quality of life. 50th percentile is the average of the general population and indicates half of respondents had a worse score. T-scores: mean of general population = 50. 5 points is clinically meaningfully difference Percentiles provide an indication of how the patient's score ranks in relation to the general population. Higher percentile rankings indicate better function/quality of life. 50th percentile is the average of the general population and indicates half of respondents had a worse score. 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 3: provided with written instructions, pt attends a day treatment center which has nursing available she reports they will help her with the application 4: pt to continue with splinting as it helps her pain Skilled Intervention: Provided written instruction for activities of daily living techniques to facilitate proper performance and compliance. Billing Self-Care/Home Management Treatment Minutes: 20 LIZ Zamora documented in this encounter [facility] 06-10-2022 Note HNO ID: [id number] Author: Rory Gutierrez MD Service: ? Author Type: Physician Type: Progress Notes Filed: 06/10/2022 5:07 PM Note Text: Patient presents with: Left Knee - New, Pain Rory Gutierrez MD Department of Orthopaedics Orthopaedics [address] [facility] [address] Dept: [phone] Dept June 10, 2022 CHIEF COMPLAINT: New and Pain of the Left Knee HPI Patient is still having some troubles not only with the left knee but what she describes at times is the extent of the left leg from the ankle to the hip. She has had injections in the past with Dr. Toth in [place] which she states did help temporarily. She had a full work-up for her left knee including infection work-up. ASSESSMENT: M79.605 Left leg pain (primary encounter diagnosis) PLAN: Prior work-up for the left knee replacement looks to be quite well. No signs or symptoms of infection. There may be some slight instability causing discomfort but majority of what she is describing seems lumbar related despite a relatively speaking, clean MRI. I think I would suggest trying injection again to see if her left leg symptoms improved. Ms. Sharon Reed was advised as to contrast therapies and/or to take analgesics/anti-inflammatories as needed and all contraindications were reviewed. OBJECTIVE: Ms. Sharon Reed is a pleasant 76 year old in no apparent distress. Gen:There were no vitals taken for this visit. nl development, obese, no deformities ENT: Normocephalic, normal hearing, moist mucosa CV: Pulses:DP/PT= 2+ and symmetric, capillary refill < 2 secs, no peripheral edema/varicosities Skin: no rash, bruising or lesions. Good turgor. Psych: cooperative and appropriate, alert and oriented x 3, good mood and affect. Musculoskeletal: Walking with a Rollator though getting around relatively well. No swelling in the left knee. I suppose she does have just a slight bit of medial and lateral laxity on stressing but no gross instability of the knee. Imaging: Deferred today Supporting Subjective Information Below: Past Surgical History: PAST SURGICAL HISTORY Procedure Laterality Date - AQUEOUS SHUNT EYE W/O GRAFT Right 09/10/2021 Xen Aqueous Shunt Right Eye - CLSR ANAL FSTL W/RCT ADVMNT FLAP - COLONOSCOPY FLX DX W/COLLJ SPEC WHEN PFRMD 06/29/2007 Colonoscopy - DILATION AND CURETTAGE DXAND/THER NONOBSTETRIC Dilation AND curettage - ESOPHAGOGASTRODUODENOSCOPY TRANSORAL DIAGNOSTIC 06/29/2007 EGD - LIG/TRNSXJ FLP TUBE ABDL/VAG APPR UNI/BI Tubal ligation - TRACTION (SPECIFY) Medications: Current Outpatient Medications Medication Sig - VITAMIN D-3 50 mcg (2,000 unit) cap Take 1 capsule by mouth once daily. - fvay-BC-gfp-fhb-SGT-VZYD-be-mv 1.5 mg iron- 8.73 mg CpID Take by mouth once daily. - brimonidine (ALPHAGAN) 0.2 % ophthalmic solution Use 1 Drop in the left eye every 12 hours. - latanoprost (XALATAN) 0.005 % ophthalmic solution Use 1 Drop in the left eye once daily. Instill 1 drop in each eye at bedtime. - pantoprazole DR (PROTONIX) 40 mg tablet TAKE 1 TABLET BY MOUTH 30-45 MINUTES BEFORE BREAKFAST - atorvastatin (LIPITOR) 20 mg tablet daily at bedtime. - cyclobenzaprine (FLEXERIL) 5 mg tablet Take 5 mg by mouth three times daily as needed. - meloxicam (MOBIC) 7.5 mg tablet Take 1 tablet by mouth once daily. Take this directly following a meal - RESTASIS 0.05 % ophthalmic emulsion INSTILL 1 DROP INTO EACH EYE TWICE DAILY DIRECTED - Verapamil HCl 360 mg 24 hr capsule VERAPAMIL HCL ER 360 MG [id number] No current facility-administered medications for this visit. Allergies: Codeine, Adhesive Tape-Silicones, Latex, and Tramadol ROS: General (negative for fatigue, malaise, weight loss/gain) HEENT (negative for headache, earache, recent vision changes, sinus pain, sore throat) Respiratory (no recent shortness of breath, hemoptysis) CV (negative for chest tightness, palpitations) Musculoskeletal (see HPI) Psych (no depression, anxiety) Rory Gutierrez MD [facility] 06-10-2022 History of Present illness Narrative Patient presents with: Left Knee - New, Pain Rory Gutierrez MD Department of Orthopaedics Orthopaedics [address] [facility] [address] Dept: [phone] Dept June 10, 2022 CHIEF COMPLAINT: New and Pain of the Left Knee HPI Patient is still having some troubles not only with the left knee but what she describes at times is the extent of the left leg from the ankle to the hip. She has had injections in the past with Dr. Toth in [place] which she states did help temporarily. She had a full work-up for her left knee including infection work-up. ASSESSMENT: M79.605 Left leg pain (primary encounter diagnosis) PLAN: Prior work-up for the left knee replacement looks to be quite well. No signs or symptoms of infection. There may be some slight instability causing discomfort but majority of what she is describing seems lumbar related despite a relatively speaking, clean MRI. I think I would suggest trying injection again to see if her left leg symptoms improved. Ms. Sharon Reed was advised as to contrast therapies and/or to take analgesics/anti-inflammatories as needed and all contraindications were reviewed. OBJECTIVE: Ms. Sharon Reed is a pleasant 76 year old in no apparent distress. Gen:There were no vitals taken for this visit. nl development, obese, no deformities ENT: Normocephalic, normal hearing, moist mucosa CV: Pulses:DP/PT= 2+ and symmetric, capillary refill < 2 secs, no peripheral edema/varicosities Skin: no rash, bruising or lesions. Good turgor. Psych: cooperative and appropriate, alert and oriented x 3, good mood and affect. Musculoskeletal: Walking with a Rollator though getting around relatively well. No swelling in the left knee. I suppose she does have just a slight bit of medial and lateral laxity on stressing but no gross instability of the knee. Imaging: Deferred today Supporting Subjective Information Below: Past Surgical History: PAST SURGICAL HISTORY Procedure Laterality Date AQUEOUS SHUNT EYE W/O GRAFT Right 09/10/2021 Xen Aqueous Shunt Right Eye CLSR ANAL FSTL W/RCT ADVMNT FLAP COLONOSCOPY FLX DX W/COLLJ SPEC WHEN PFRMD 06/29/2007 Colonoscopy DILATION & CURETTAGE DX&/THER NONOBSTETRIC Dilation & curettage ESOPHAGOGASTRODUODENOSCOPY TRANSORAL DIAGNOSTIC 06/29/2007 EGD LIG/TRNSXJ FLP TUBE ABDL/VAG APPR UNI/BI Tubal ligation TRACTION (SPECIFY) Medications: Current Outpatient Medications Medication Sig VITAMIN D-3 50 mcg (2,000 unit) cap Take 1 capsule by mouth once daily. xssg-IA-goy-hik-SQQ-NNLO-be-mv 1.5 mg iron- 8.73 mg CpID Take by mouth once daily. brimonidine (ALPHAGAN) 0.2 % ophthalmic solution Use 1 Drop in the left eye every 12 hours. latanoprost (XALATAN) 0.005 % ophthalmic solution Use 1 Drop in the left eye once daily. Instill 1 drop in each eye at bedtime. pantoprazole DR (PROTONIX) 40 mg tablet TAKE 1 TABLET BY MOUTH 30-45 MINUTES BEFORE BREAKFAST atorvastatin (LIPITOR) 20 mg tablet daily at bedtime. cyclobenzaprine (FLEXERIL) 5 mg tablet Take 5 mg by mouth three times daily as needed. meloxicam (MOBIC) 7.5 mg tablet Take 1 tablet by mouth once daily. Take this directly following a meal RESTASIS 0.05 % ophthalmic emulsion INSTILL 1 DROP INTO EACH EYE TWICE DAILY DIRECTED Verapamil HCl 360 mg 24 hr capsule VERAPAMIL HCL ER 360 MG [id number] No current facility-administered medications for this visit. Allergies: Codeine, Adhesive Tape-Silicones, Latex, and Tramadol ROS: General (negative for fatigue, malaise, weight loss/gain) HEENT (negative for headache, earache, recent vision changes, sinus pain, sore throat) Respiratory (no recent shortness of breath, hemoptysis) CV (negative for chest tightness, palpitations) Musculoskeletal (see HPI) Psych (no depression, anxiety) Rory Gutierrez MD documented in this encounter [facility] 06-09-2022 Note HNO ID: [id number] Author: Florence Finley, DO Service: ? Author Type: Physician Type: Progress Notes Filed: 06/10/2022 2:35 PM Note Text: Follow Up Visit Chief Complaint Sharon Reed is a 76 year old female who presents today for follow up office visit. Patient presents with: Left Wrist - Follow Up, Pain History of Present Illness PAIN EVALUATION 06/09/2022 1300 Pain Level: 3 Pain Location: Wrist-Left Description: Aching;Dull;Sore;Throbbing;Shooting;Sh zaria Duration Amount of Time: ? ongoing Frequency: Continuous Intervention/Comfort measure: Reposition;Relaxation;Splinting;Cold;M edication;Other: See comment cortisone injection HPI: Sharon Reed is a 76 year old female for a follow up visit left wrist pain. Patient had a cortisone injection at the last visit that gave minimal relief. She still complains of pain radiating from wrist to shoulder. Pain history is noted as above. Seeing spine for back issues. Denies sob, chest pain, states pain travels from her shoulder down to her hand and feels achy - has had MRI of cervical spine in past Is there any overall improvement in your condition? No Any new injury, since being seen last: No REVIEW OF SYMPTOMS: Patient did not have, and does not currently have, any weight loss, malaise, fever, chills, headache, chest pain, chest pressure, palpitations, cough, shortness of breath, orthopnea, paroxsymal nocturnal dyspnea, nausea, vomiting, diarrhea, constipation, melena, hematochezia, urinary difficulties, prolonged bleeding, easily bruising, heat or cold intolerance, new onset joint pain or swelling, new onset extremity weakness or numbness, new onset auditory or visual disturbances, lightheadedness, dizziness, partial loss of consciousness or full loss of consciousness. Current Outpatient Medications Medication Sig - VITAMIN D-3 50 mcg (2,000 unit) cap Take 1 capsule by mouth once daily. - eczj-GQ-mrt-csi-BHN-BOBA-be-mv 1.5 mg iron- 8.73 mg CpID Take by mouth once daily. - brimonidine (ALPHAGAN) 0.2 % ophthalmic solution Use 1 Drop in the left eye every 12 hours. - latanoprost (XALATAN) 0.005 % ophthalmic solution Use 1 Drop in the left eye once daily. Instill 1 drop in each eye at bedtime. - pantoprazole DR (PROTONIX) 40 mg tablet TAKE 1 TABLET BY MOUTH 30-45 MINUTES BEFORE BREAKFAST - atorvastatin (LIPITOR) 20 mg tablet daily at bedtime. - cyclobenzaprine (FLEXERIL) 5 mg tablet Take 5 mg by mouth three times daily as needed. - meloxicam (MOBIC) 7.5 mg tablet Take 1 tablet by mouth once daily. Take this directly following a meal - RESTASIS 0.05 % ophthalmic emulsion INSTILL 1 DROP INTO EACH EYE TWICE DAILY DIRECTED - Verapamil HCl 360 mg 24 hr capsule VERAPAMIL HCL ER 360 MG [id number] No current facility-administered medications for this visit. Physical Exam Vitals: There were no vitals taken for this visit. Psych: Pleasant, good affect and mood General Appearance: Well appearing, alert, in no acute distress, well-hydrated, well nourished.. Skin: Skin color, texture, turgor normal, no suspicious rashes or lesions. Peripheral Pulses: Normal. Neurologic: Gait normal. Reflexes normal and symmetric. Sensation grossly intact.. Lymph Nodes: No cervical lymphadenopathy, No supraclavicular lymphadenopathy, No axillary lymphadenopathy. and No inguinal lymphadenopathy.. Respiratory: No recent pulmonary infection, hemoptysis, chronic cough, or shortness of breath at rest Rheumatologic: Joint deformities: Left wrist pain Right Hand Exam Right hand exam is normal. Tenderness The patient is experiencing no tenderness. Range of Motion The patient has normal right wrist ROM. Wrist Extension: normal Flexion: normal Pronation: normal Supination: normal Muscle Strength The patient has normal right wrist strength. Tests Phalen?s Sign: negative Tinel's sign (median nerve): negative Mian's test: negative Other Erythema: absent Sensation: normal Pulse: present Comments: B/l med/uln/rad/ax nerves intact Left Hand Exam Tenderness The patient is experiencing tenderness in the ulnar area. Range of Motion Wrist Extension: abnormal Flexion: abnormal Pronation: normal Supination: normal Muscle Strength The patient has normal left wrist strength. Tests Phalen?s Sign: negative Tinel's sign (median nerve): negative Mian's test: negative Other Erythema: absent Sensation: normal Pulse: present Comments: Ttp tfcc/ecu Assessment and Plan Radiographs: I have independently reviewed films and my findings are the same. and I have reviewed the images with the patient and family. Last MRI Cervical Spine - Impression Only MRI CERVICAL SPINE WO IVCON Exam End: 10/28/2021 10:41 AM (Final result) Impression: IMPRESSION: Mild cervical spondylosis most pronounced at C5-C6 without high-grade spinal canal stenosis. Foraminal stenosis is m (more content not included)... [facility] 06-09-2022 History of Present illness Narrative Images from the original note were not included. Follow Up Visit Chief Complaint Sharon Reed is a 76 year old female who presents today for follow up office visit. Patient presents with: Left Wrist - Follow Up, Pain History of Present Illness PAIN EVALUATION 06/09/2022 1300 Pain Level: 3 Pain Location: Wrist-Left Description: Aching;Dull;Sore;Throbbing;Shooting;Sh zaria Duration Amount of Time: ongoing Frequency: Continuous Intervention/Comfort measure: Reposition;Relaxation;Splinting;Cold;M edication;Other: See comment cortisone injection HPI: Sharon Reed is a 76 year old female for a follow up visit left wrist pain. Patient had a cortisone injection at the last visit that gave minimal relief. She still complains of pain radiating from wrist to shoulder. Pain history is noted as above. Seeing spine for back issues. Denies sob, chest pain, states pain travels from her shoulder down to her hand and feels achy - has had MRI of cervical spine in past Is there any overall improvement in your condition? No Any new injury, since being seen last: No REVIEW OF SYMPTOMS: Patient did not have, and does not currently have, any weight loss, malaise, fever, chills, headache, chest pain, chest pressure, palpitations, cough, shortness of breath, orthopnea, paroxsymal nocturnal dyspnea, nausea, vomiting, diarrhea, constipation, melena, hematochezia, urinary difficulties, prolonged bleeding, easily bruising, heat or cold intolerance, new onset joint pain or swelling, new onset extremity weakness or numbness, new onset auditory or visual disturbances, lightheadedness, dizziness, partial loss of consciousness or full loss of consciousness. Current Outpatient Medications Medication Sig VITAMIN D-3 50 mcg (2,000 unit) cap Take 1 capsule by mouth once daily. ulsb-BH-vuo-gvm-RDM-XRTU-be-mv 1.5 mg iron- 8.73 mg CpID Take by mouth once daily. brimonidine (ALPHAGAN) 0.2 % ophthalmic solution Use 1 Drop in the left eye every 12 hours. latanoprost (XALATAN) 0.005 % ophthalmic solution Use 1 Drop in the left eye once daily. Instill 1 drop in each eye at bedtime. pantoprazole DR (PROTONIX) 40 mg tablet TAKE 1 TABLET BY MOUTH 30-45 MINUTES BEFORE BREAKFAST atorvastatin (LIPITOR) 20 mg tablet daily at bedtime. cyclobenzaprine (FLEXERIL) 5 mg tablet Take 5 mg by mouth three times daily as needed. meloxicam (MOBIC) 7.5 mg tablet Take 1 tablet by mouth once daily. Take this directly following a meal RESTASIS 0.05 % ophthalmic emulsion INSTILL 1 DROP INTO EACH EYE TWICE DAILY DIRECTED Verapamil HCl 360 mg 24 hr capsule VERAPAMIL HCL ER 360 MG [id number] No current facility-administered medications for this visit. Physical Exam Vitals: There were no vitals taken for this visit. Psych: Pleasant, good affect and mood General Appearance: Well appearing, alert, in no acute distress, well-hydrated, well nourished.. Skin: Skin color, texture, turgor normal, no suspicious rashes or lesions. Peripheral Pulses: Normal. Neurologic: Gait normal. Reflexes normal and symmetric. Sensation grossly intact.. Lymph Nodes: No cervical lymphadenopathy, No supraclavicular lymphadenopathy, No axillary lymphadenopathy. and No inguinal lymphadenopathy.. Respiratory: No recent pulmonary infection, hemoptysis, chronic cough, or shortness of breath at rest Rheumatologic: Joint deformities: Left wrist pain Right Hand Exam Right hand exam is normal. Tenderness The patient is experiencing no tenderness. Range of Motion The patient has normal right wrist ROM. Wrist Extension: normal Flexion: normal Pronation: normal Supination: normal Muscle Strength The patient has normal right wrist strength. Tests Phalen s Sign: negative Tinel's sign (median nerve): negative Mian's test: negative Other Erythema: absent Sensation: normal Pulse: present Comments: B/l med/uln/rad/ax nerves intact Left Hand Exam Tenderness The patient is experiencing tenderness in the ulnar area. Range of Motion Wrist Extension: abnormal Flexion: abnormal Pronation: normal Supination: normal Muscle Strength The patient has normal left wrist strength. Tests Phalen s Sign: negative Tinel's sign (median nerve): negative Mian's test: negative Other Erythema: absent Sensation: normal Pulse: present Comments: Ttp tfcc/ecu Assessment and Plan Radiographs: I have independently reviewed films and my findings are the same. and I have reviewed the images with the patient and family. Last MRI Cervical Spine - Impression Only MRI CERVICAL SPINE WO IVCON Exam End: 10/28/2021 10:41 AM (Final result) Impression: IMPRESSION: Mild cervical spondylosis most pronounced at C5-C6 without high-grade spinal canal stenosis. Foraminal stenosis is most notable at C5-C6 where is up to moderate in degree on the left. Moderate thoracic spondylosis without high-grade spinal canal stenosis. ... Complete Results Impression: Encounter Diagnosis ICD-10-CM 1. 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 Scapholunate ligament injury with no instability, left, initial encounter S69.92XA CONSULT TO T[employer] CAR LO[employer]ER 3. Injury of triangular fibrocartilage complex (TFCC) of left wrist, initial encounter S69.82XA CONSULT TO T[employer] CAR LO[employer]ER 4. 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 We discussed strategies for decreasing pain and improving strength, stability and motion. Patient's questions were answered in detailed. Patient verbalizes understanding and agrees with the treatment plan as discussed. Discussed injections with spine for oa Discussed dr carlton for evaluation/treatment Discussed living with pain Will try some occupational therapy And will see spine to see if coming from her neck Patient aware and in agreement of plan. All questions answered. documented in this encounter [facility] 06-03-2022 Note HNO ID: [id number] Author: Daija Alcocer PA-C Service: ? Author Type: Physician Aircraft Delivery Checker Type: Progress Notes Filed: 06/03/2022 12:34 PM Note Text: Da[facility]cocer [facility]-C [facility] [address] [place] [address] [facility]/03/[facility]22 ASSESSMENT AND PLAN: Assessment : Encounter Diagnosis ICD-10-CM 1. Chronic low back pain with left-sided sciatica, unspecified back pain laterality M54.42 G89.29 2. Lumbar degenerative disc disease M51.36 Discussion: Ms. Reed is here for a follow-up visit today to discuss her recent lumbar MRI results Has primarily LBP with occasional bilat buttock and posterior thigh radiating pain. She has additional LEFT wrist pain. She is morbidly obese and uses a rollator to help her get around. She states that she has recently lost about 30 lbs. Her biggest fear is that she might fall again. Her last fall seems to have dramatically increased her LBP. She takes meloxicam 15mg and flexeril 5 mg every day. Although she mobilizes somewhat slowly from sitting to standing. She does quite well and is able to move around fairly smoothly and quickly with the use of her Rollator. Her low back pain is palpable at lumbosacral junction in the midline without radiation Lumbar motion not tested today secondary to her feeling unstable on her feet I cannot detect any focal motor deficits or sensory deficit today. Plan : MEDICATIONS: -Current medication regimen is appropriate for this problem. ACTIVITY RECOMMENDATIONS: -The patient is encouraged to avoid bed rest and maintain normal activity. -The patient advised to avoid prolonged sitting. NUTRITION RECOMMENDATIONS: -The patient is carrying a significant amount of weight above an ideal BMI. We discussed how this impacts overall health and back pain. FOLLOW-UP: -The patient is instructed to return as needed. This document has been created with the use of voice recognition technology. It may contain inaccuracies: (e.g. misspellings, inaccurate syntax or word sense) that have escaped review. Time spent: 32 minutes today with this patient visit. This includes [id number] time, review of chart records regarding conservative care history, spine-pertinent imaging, and communication/care coordination with referring provider, problem-specific history-taking and counseling/education regarding treatment options. cc: Daija Alcocer [address] [place] [address] Results of consultation to be transmitted via electronic medical record for those providers who practice within [facility] or with access to [employer] via [employer] Connect, or via letter. ###################################### ################################## CHIEF COMPLAINT: Central LBP HPI: see Discussion above History of bowel or bladder dysfunction (not IBS or constipation): No History of previous spinal surgery: No History of spinal fracture: No Work Status: retired [employer] employee NON-OPERATIVE CARE: Medication(s): She has tried the following for relief of her symptoms: Rx NSAIDs: meloxicam Muscle relaxant: flexeril Physical Therapy: She has had physical therapy for her current symptoms. The patient is currently attending PT sessions. The therapy provided a small amount of relief. Spinal Injections: She has not gotten prior spinal injections. Other: None Current Outpatient Medications Medication Sig Dispense Refill - methylPREDNISolone (MEDROL) 4 mg Take by mouth. - VITAMIN D-3 50 mcg (2,000 unit) cap Take 1 capsule by mouth once daily. - hghp-HJ-[id number]-bmm-NHT-NGNI-be-mv 1.5 mg iron- 8.73 mg CpID Take by mouth once daily. - brimonidine (ALPHAGAN) 0.2 % ophthalmic solution Use 1 Drop in the left eye every 12 hours. 5 mL 11 - latanoprost (XALATAN) 0.005 % ophthalmic solution Use 1 Drop in the left eye once daily. Instill 1 drop in each eye at bedtime. 7.5 mL 3 - pantoprazole DR (PROTONIX) 40 mg tablet TAKE 1 TABLET BY MOUTH 30-45 MINUTES BEFORE BREAKFAST - atorvastatin (LIPITOR) 20 mg tablet daily at bedtime. - cyclobenzaprine (FLEXERIL) 5 mg tablet Take 5 mg by mouth three times daily as needed. - traMADol (ULTRAM) 50 mg tablet once daily. - meloxicam (MOBIC) 7.5 mg tablet Take 1 tablet by mouth once daily. Take this directly following a meal 60 tablet 0 - RESTASIS 0.05 % ophthalmic emulsion INSTILL 1 DROP INTO EACH EYE TWICE DAILY DIRECTED - Verapamil HCl 360 mg 24 hr capsule VERAPAMIL HCL ER 360 MG [id number] No current facility-administered medications for this visit. Allergies: Codeine, Adhesive Tape-Silicones, Latex, and Tramadol PAST MEDICAL HISTORY Diagnosis Date - Abdominal pain, left lower quadrant - Diaphragmatic hernia without mention of obstruction or gangrene - Diverticulosis of colon ( (more content not included)... [facility] 06-03-2022 History of Present illness Narrative Images from the original note were not included. Daija Alcocer PA-C [facility] [address] [address] 06/03/2022 ASSESSMENT AND PLAN: Assessment : Encounter Diagnosis ICD-10-CM 1. Chronic low back pain with left-sided sciatica, unspecified back pain laterality M54.42 G89.29 2. Lumbar degenerative disc disease M51.36 Discussion: Ms. Reed is here for a follow-up visit today to discuss her recent lumbar MRI results Has primarily LBP with occasional bilat buttock and posterior thigh radiating pain. She has additional LEFT wrist pain. She is morbidly obese and uses a rollator to help her get around. She states that she has recently lost about 30 lbs. Her biggest fear is that she might fall again. Her last fall seems to have dramatically increased her LBP. She takes meloxicam 15mg and flexeril 5 mg every day. Although she mobilizes somewhat slowly from sitting to standing. She does quite well and is able to move around fairly smoothly and quickly with the use of her Rollator. Her low back pain is palpable at lumbosacral junction in the midline without radiation Lumbar motion not tested today secondary to her feeling unstable on her feet I cannot detect any focal motor deficits or sensory deficit today. Plan : MEDICATIONS: -Current medication regimen is appropriate for this problem. ACTIVITY RECOMMENDATIONS: -The patient is encouraged to avoid bed rest and maintain normal activity. -The patient advised to avoid prolonged sitting. NUTRITION RECOMMENDATIONS: -The patient is carrying a significant amount of weight above an ideal BMI. We discussed how this impacts overall health and back pain. FOLLOW-UP: -The patient is instructed to return as needed. This document has been created with the use of voice recognition technology. It may contain inaccuracies: (e.g. misspellings, inaccurate syntax or word sense) that have escaped review. Time spent: 32 minutes today with this patient visit. This includes [id number] time, review of chart records regarding conservative care history, spine-pertinent imaging, and communication/care coordination with referring provider, problem-specific history-taking and counseling/education regarding treatment options. cc: Daija Alcocer [address] [facility] [address] Results of consultation to be transmitted via electronic medical record for those providers who practice within [facility] or with access to [employer] via [employer] Connect, or via letter. ###################################### ################################## CHIEF COMPLAINT: Central LBP HPI: see Discussion above History of bowel or bladder dysfunction (not IBS or constipation): No History of previous spinal surgery: No History of spinal fracture: No Work Status: retired [employer] employee NON-OPERATIVE CARE: Medication(s): She has tried the following for relief of her symptoms: Rx NSAIDs: meloxicam Muscle relaxant: flexeril Physical Therapy: She has had physical therapy for her current symptoms. The patient is currently attending PT sessions. The therapy provided a small amount of relief. Spinal Injections: She has not gotten prior spinal injections. Other: None Current Outpatient Medications Medication Sig Dispense Refill methylPREDNISolone (MEDROL) 4 mg Take by mouth. VITAMIN D-3 50 mcg (2,000 unit) cap Take 1 capsule by mouth once daily. vbxz-UR-ghi-scy-XBS-XGVM-be-mv 1.5 mg iron- 8.73 mg CpID Take by mouth once daily. brimonidine (ALPHAGAN) 0.2 % ophthalmic solution Use 1 Drop in the left eye every 12 hours. 5 mL 11 latanoprost (XALATAN) 0.005 % ophthalmic solution Use 1 Drop in the left eye once daily. Instill 1 drop in each eye at bedtime. 7.5 mL [address] (PROTONIX) 40 mg tablet TAKE 1 TABLET BY MOUTH 30-45 MINUTES BEFORE BREAKFAST atorvastatin (LIPITOR) 20 mg tablet daily at bedtime. cyclobenzaprine (FLEXERIL) 5 mg tablet Take 5 mg by mouth three times daily as needed. traMADol (ULTRAM) 50 mg tablet once daily. meloxicam (MOBIC) 7.5 mg tablet Take 1 tablet by mouth once daily. Take this directly following a meal 60 tablet 0 RESTASIS 0.05 % ophthalmic emulsion INSTILL 1 DROP INTO EACH EYE TWICE DAILY DIRECTED Verapamil HCl 360 mg 24 hr capsule VERAPAMIL HCL ER 360 MG [id number] No current facility-administered medications for this visit. Allergies: Codeine, Adhesive Tape-Silicones, Latex, and Tramadol PAST MEDICAL HISTORY Diagnosis Date Abdominal pain, left lower quadrant Diaphragmatic hernia without mention of obstruction or gangrene Diverticulosis of colon (without mention of hemorrhage) Esophageal reflux Generalized osteoarthrosis, unspecified site General Osteoarthritis left knee Myalgia and myositis, unspecified Primary hypertension 08/11/2021 Pure hypercholesterolemia PAST SURGICAL HISTORY Procedure Laterality Date AQUEOUS SHUNT EYE W/O GRAFT Right 09/10/2021 Xen Aqueous Shunt Right Eye CLSR ANAL FSTL W/RCT ADVMNT FLAP COLONOSCOPY FLX DX W/COLLJ SPEC WHEN PFRMD 06/29/2007 Colonoscopy DILATION & CURETTAGE DX&/THER NONOBSTETRIC Dilation & curettage ESOPHAGOGASTRODUODENOSCOPY TRANSORAL DIAGNOSTIC 06/29/2007 EGD LIG/TRNSXJ FLP TUBE ABDL/VAG APPR UNI/BI Tubal ligation TRACTION (SPECIFY) Social History Tobacco Use Smoking status: Never Smoker Smokeless tobacco: Never Used Vaping Use Vaping Use: Never used Substance Use Topics Alcohol use: No Drug use: No FAMILY HISTORY Problem Relation Age of Onset Diabetes Sister Diabetes Brother Heart Daughter Heart Daughter Heart Son Heart Son Glaucoma Maternal Grandmother ###################################### ###################################### ###################################### ############### PHYSICAL EXAM: Blood pressure 172/71, pulse 72, weight 106.3 kg (234 lb 4.8 oz), SpO2 99 %. Body mass index is 40.22 kg/m . General: Patient is a(n) average historian. The patient appears younger than the recorded age and is sitting comfortably in the examining room. The patient is short in stature and is morbidly obese in appearance. This individual has difficulty arising from a sitting position and does have difficulty acquiring a full, upright position when standing. Station and Gait: flexed posture and gait using Rollator MENTAL STATUS EXAMINATION: The patient was neatly dressed and well groomed. The patient had good eye contact and rapport was average to establish. The patient appeared to be alert and oriented in all spheres. The patient's overall medical judgment appeared to be good.The patient's motivation for treatment was judged based on today's encounter to be fair. SPINE: Lumbar Lordosis: unable to assess due to body habitus Thoracic Kyphosis: unable to assess due to body habitus RPALPATION TENDERNESS: Moderate tenderness at: lumbar region Hyperesthesia present: No Regional symptoms present: No Increased pain with axial loading: No Distraction: Normal Pain responses: appropriate NEUROLOGIC EXAM: MOTOR: Walk on Toes: Right: Yes Left: Yes Walk on Heels: Right: Yes Left: Yes Requires verbal cues to minimize cog-wheel or give-way resistance: No Hip Flexor R: 5/5 L: 5/5 Hip Adductor R: 5/5 L: 5/5 Hip Abductor R: 5/5 L: 5/5 Knee Extension R: 5/5 L: 5/5 Foot Dorsiflexion R: 5/5 L: 5/5 Foot Plantar Flexion R: 5/5 L: 5/5 Ext Hallicus Longus R: 5/5 L: 5/5 Toe Extensors R: 5/5 L: 5/5 SENSATION to Light Touch: Lumbar: L2-S1 symmetrically normal. ADDITIONAL MUSCULOSKELETAL EXAM: HIP/PELVIS EXAM: Tenderness over the PSIS: Right: No Left: No Greater Trochanteric pain: Right: No Left: No SPECIAL TESTS: Straight Leg Raise: negative bilaterally Contralateral Straight Leg Raise: negative bilaterally IMAGING STUDIES: See discussion above documented in this encounter [facility] 06-01-2022 Miscellaneous Notes Called and spoke with daughter. Patient has appointment on Thursday 7/28 for left knee pain. Patient has a history of TKA and recently saw Dr. Yousif and Nikolay Madrigal. Last office visit with Nikolay patient was instructed to follow up 03/09/22 and not sure why she is scheduled to see Dr. Gutierrez. Daughter will have her mother call the office when she is back in town. documented in this encounter [facility] 05-19-2022 Note HNO ID: [id number] Author: Florence Finley, DO Service: ? Author Type: Physician Type: Progress Notes Filed: 05/25/2022 9:59 AM Note Text: Additional Injections for Hand and Wrist Tendinopathy Informed Consent Consent Obtained: Verbal Orwell Protocol A moment to CARE was completed. SIGN IN Personnel directly involved with the procedure wore the appropriate PPE. Special Equipment: N/A Patient/Surrogate Stated/Verified: Patient name, Date of , Relevant allergies and Intended procedure TIME OUT Intended patient and procedure match the source document(s). Consent documented and matches the intended procedure. Relevant labs, photos, and/or imaging studies have been reviewed. Correct side/site marked and visible. Medications required for procedure verified. No fire risk assessment and interventions applicable. No implant(s) inserted. 05/19/2022 9:57 AM The procedure site was prepped in the usual sterile fashion. Medications: 10 mg triamcinolone acetonide 10 mg/mL Anesthetics: 1 mL bupivacaine (PF) 0.5 % (5 mg/mL) Outcome: tolerated well, no immediate complications Post-injection instructions were reviewed with the patient and the patient voiced understanding of these instructions. SIGN OUT All specimen containers correctly labeled. All instruments, equipment, possible retained foreign bodies accounted for. Post-procedure follow-up management communicated and Plan of Care Visit completed when applicable tfcc tear site injection left Follow Up Visit Chief Complaint Sharon Reed is a 76 year old female who presents today for follow up office visit. Patient presents with: Left Wrist - Follow Up, Pain History of Present Illness PAIN EVALUATION 05/19/2022 1322 Pain Level: 8 Pain Location: Wrist-Left Description: Aching;Dull;Sharp;Shooting;Throbbing Duration Amount of Time: ? ongoing Frequency: Continuous Intervention/Comfort measure: Reposition;Relaxation;Medication;Other : See comment nawafisone injection HPI: Sharon Reed is a 76 year old female for a follow up visit left wrist pain. Patient has had increasing pain for about two weeks now that radiated from shoulder to her left wrist. No new injury. Pain history is noted as above. Is there any overall improvement in your condition? No Any new injury, since being seen last: No REVIEW OF SYMPTOMS: Patient did not have, and does not currently have, any weight loss, malaise, fever, chills, headache, chest pain, chest pressure, palpitations, cough, shortness of breath, orthopnea, paroxsymal nocturnal dyspnea, nausea, vomiting, diarrhea, constipation, melena, hematochezia, urinary difficulties, prolonged bleeding, easily bruising, heat or cold intolerance, new onset joint pain or swelling, new onset extremity weakness or numbness, new onset auditory or visual disturbances, lightheadedness, dizziness, partial loss of consciousness or full loss of consciousness. Current Outpatient Medications Medication Sig - methylPREDNISolone (MEDROL) 4 mg Take by mouth. - VITAMIN D-3 50 mcg (2,000 unit) cap Take 1 capsule by mouth once daily. - [id number]-YD-ena-dzj-BLA-[id number]-be-mv 1.5 mg iron- 8.73 mg CpID Take by mouth once daily. - brimonidine (ALPHAGAN) 0.2 % ophthalmic solution Use 1 Drop in the left eye every 12 hours. - latanoprost (XALATAN) 0.005 % ophthalmic solution Use 1 Drop in the left eye once daily. Instill 1 drop in each eye at bedtime. - pantoprazole DR (PROTONIX) 40 mg tablet TAKE 1 TABLET BY MOUTH 30-45 MINUTES BEFORE BREAKFAST - atorvastatin (LIPITOR) 20 mg tablet daily at bedtime. - cyclobenzaprine (FLEXERIL) 5 mg tablet Take 5 mg by mouth three times daily as needed. - traMADol (ULTRAM) 50 mg tablet once daily. - meloxicam (MOBIC) 7.5 mg tablet Take 1 tablet by mouth once daily. Take this directly following a meal - RESTASIS 0.05 % ophthalmic emulsion INSTILL 1 DROP INTO EACH EYE TWICE DAILY DIRECTED - Verapamil HCl 360 mg 24 hr capsule VERAPAMIL HCL ER 360 MG [id number] No current facility-administered medications for this visit. Physical Exam Vitals: There were no vitals taken for this visit. Psych: Pleasant, good affect and mood General Appearance: Well appearing, alert, in no acute distress, well-hydrated, well nourished.. Skin: Skin color, texture, turgor normal, no suspicious rashes or lesions. Peripheral Pulses: Normal. Neurologic: Gait normal. Reflexes normal and symmetric. Sensation grossly intact.. Lymph Nodes: No cervical lymphadenopathy, No supraclavicular lymphadenopathy, No axillary lymphadenopathy. and No inguinal lymphadenopathy.. Respiratory: No recent pulmonary infection, hemoptysis, chronic cough, or shortness of breath at rest Rheumatologic: Joint deformities: left wrist pain Ortho Exam Assessment and Plan Radiographs: I have independently reviewed films and my findings are the same. and I have reviewed the images wit (more content not included)... [facility] 05-19-2022 History of Present illness Narrative Associated Order(s): Additional Injections Post-Procedure Diagnose(s): Degenerative TFCC tear, left; Scapholunate ligament injury with no instability, left, initial encounter Images from the original note were not included. Additional Injections for Hand and Wrist Tendinopathy Informed Consent Consent Obtained: Verbal Orwell Protocol A moment to CARE was completed. SIGN IN Personnel directly involved with the procedure wore the appropriate PPE. Special Equipment: N/A Patient/Surrogate Stated/Verified: Patient name, Date of , Relevant allergies and Intended procedure TIME OUT Intended patient and procedure match the source document(s). Consent documented and matches the intended procedure. Relevant labs, photos, and/or imaging studies have been reviewed. Correct side/site marked and visible. Medications required for procedure verified. No fire risk assessment and interventions applicable. No implant(s) inserted. 05/19/2022 9:57 AM The procedure site was prepped in the usual sterile fashion. Medications: 10 mg triamcinolone acetonide 10 mg/mL Anesthetics: 1 mL bupivacaine (PF) 0.5 % (5 mg/mL) Outcome: tolerated well, no immediate complications Post-injection instructions were reviewed with the patient and the patient voiced understanding of these instructions. SIGN OUT All specimen containers correctly labeled. All instruments, equipment, possible retained foreign bodies accounted for. Post-procedure follow-up management communicated and Plan of Care Visit completed when applicable tfcc tear site injection left Follow Up Visit Chief Complaint Sharon Reed is a 76 year old female who presents today for follow up office visit. Patient presents with: Left Wrist - Follow Up, Pain History of Present Illness PAIN EVALUATION 05/19/2022 1322 Pain Level: 8 Pain Location: Wrist-Left Description: Aching;Dull;Sharp;Shooting;Throbbing Duration Amount of Time: ongoing Frequency: Continuous Intervention/Comfort measure: Reposition;Relaxation;Medication;Other : See comment cortisone injection HPI: Sharon Reed is a 76 year old female for a follow up visit left wrist pain. Patient has had increasing pain for about two weeks now that radiated from shoulder to her left wrist. No new injury. Pain history is noted as above. Is there any overall improvement in your condition? No Any new injury, since being seen last: No REVIEW OF SYMPTOMS: Patient did not have, and does not currently have, any weight loss, malaise, fever, chills, headache, chest pain, chest pressure, palpitations, cough, shortness of breath, orthopnea, paroxsymal nocturnal dyspnea, nausea, vomiting, diarrhea, constipation, melena, hematochezia, urinary difficulties, prolonged bleeding, easily bruising, heat or cold intolerance, new onset joint pain or swelling, new onset extremity weakness or numbness, new onset auditory or visual disturbances, lightheadedness, dizziness, partial loss of consciousness or full loss of consciousness. Current Outpatient Medications Medication Sig methylPREDNISolone (MEDROL) 4 mg Take by mouth. VITAMIN D-3 50 mcg (2,000 unit) cap Take 1 capsule by mouth once daily. [id number]-mv 1.5 mg iron- 8.73 mg CpID Take by mouth once daily. brimonidine (ALPHAGAN) 0.2 % ophthalmic solution Use 1 Drop in the left eye every 12 hours. latanoprost (XALATAN) 0.005 % ophthalmic solution Use 1 Drop in the left eye once daily. Instill 1 drop in each eye at bedtime. pantoprazole DR (PROTONIX) 40 mg tablet TAKE 1 TABLET BY MOUTH 30-45 MINUTES BEFORE BREAKFAST atorvastatin (LIPITOR) 20 mg tablet daily at bedtime. cyclobenzaprine (FLEXERIL) 5 mg tablet Take 5 mg by mouth three times daily as needed. traMADol (ULTRAM) 50 mg tablet once daily. meloxicam (MOBIC) 7.5 mg tablet Take 1 tablet by mouth once daily. Take this directly following a meal RESTASIS 0.05 % ophthalmic emulsion INSTILL 1 DROP INTO EACH EYE TWICE DAILY DIRECTED Verapamil HCl 360 mg 24 hr capsule VERAPAMIL HCL ER 360 MG [id number] No current facility-administered medications for this visit. Physical Exam Vitals: There were no vitals taken for this visit. Psych: Pleasant, good affect and mood General Appearance: Well appearing, alert, in no acute distress, well-hydrated, well nourished.. Skin: Skin color, texture, turgor normal, no suspicious rashes or lesions. Peripheral Pulses: Normal. Neurologic: Gait normal. Reflexes normal and symmetric. Sensation grossly intact.. Lymph Nodes: No cervical lymphadenopathy, No supraclavicular lymphadenopathy, No axillary lymphadenopathy. and No inguinal lymphadenopathy.. Respiratory: No recent pulmonary infection, hemoptysis, chronic cough, or shortness of breath at rest Rheumatologic: Joint deformities: left wrist pain Ortho Exam Assessment and Plan Radiographs: I have independently reviewed films and my findings are the same. and I have reviewed the images with the patient and family. Last MRI Wrist - Impression Only MRI WRIST WO IVCON LT Exam End: 03/04/2022 10:34 AM (Final result) Impression: IMPRESSION: 1. Tear of the central articular disc of the TFCC. There is partial tearing of the palmar radial attachment of the TFCC and partial tearing of the peripheral attachments of the TFCC. 2. Tearing of the palmar scapholunate ligaments. No widening of the scapholunate interval. 3. Poor delineation of the lunotriquetral ligaments which are likely intact as there is no widening of the lunotriquetral interval.... Complete Results 4. Mild tenosynovitis versus physiologic fluid adjacent to the extensor carpi radialis tendons and the flexor pollicis longus tendon. 5. Osteoarthrosis of the wrist. 6. Small distal radial ulnar joint effusion. Impression: Encounter Diagnosis ICD-10-CM 1. 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 Scapholunate ligament injury with no instability, left, initial encounter S69.92XA Today, in detail, through a thorough evaluation, we discussed possible etiologies of pain and our plans for further diagnostic and therapeutic interventions. We discussed strategies for decreasing pain and improving strength, stability and motion. Patient's questions were answered in detailed. Patient verbalizes understanding and agrees with the treatment plan as discussed. Discussed mri findings, pain more lateral so injected tfcc tear today Discussed seeing documented in this encounter [facility] 05-18-2022 Note HNO ID: [id number] Author: RT Maritza(Sidney) Service: ? Author Type: Technologist Type: Progress Notes Filed: 05/18/2022 3:40 PM Note Text: Radiology Service Progress Note PATIENT NAME: Sharon Reed DATE OF SERVICE: May 18, 2022 TIME: 3:40 PM PATIENT IDENTITY VERIFICATION COMPLETED USING TWO (2) IDENTIFIERS: Name and Date of confirmed by patient verbally. FALL SCREENING: Has the patient had 2 falls in the last year or 1 fall with injury or currently using an Ambulatory Assistive Device (Walker, Cane, Wheelchair, Crutches, etc.)? No PATIENT GENDER DATA: Female. status: : No status: NO. PATIENT RELEVANT IMPLANT DATA REVIEWED: Yes RADIOLOGY DEPARTMENT: MR; Exam(s) Completed: Spine: Lumbar spine PERIPHERAL IV DATA: Not applicable SIGNED BY: RT Maritza(Sidney) May 18, 2022 3:40 PM [facility] 05-18-2022 History of Present illness Narrative Radiology Service Progress Note PATIENT NAME: Sharon Reed DATE OF SERVICE: May 18, 2022 TIME: 3:40 PM PATIENT IDENTITY VERIFICATION COMPLETED USING TWO (2) IDENTIFIERS: Name and Date of confirmed by patient verbally. FALL SCREENING: Has the patient had 2 falls in the last year or 1 fall with injury or currently using an Ambulatory Assistive Device (Walker, Cane, Wheelchair, Crutches, etc.)? No PATIENT GENDER DATA: Female. status: : No status: NO. 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 Spoke with pt and advised prescription order would need to be picked up in the office. Pt advised she would reach out to her PCP to see if he would write the prescription. Pt will call us back and let us know if she will be coming to the office to pick it up or not. Prescription is at the front desk manager if patient decides to come pick it up. Attempted to call patient to notify that prescription is available to pickup here at the office. Unable to leave voicemail due to voicemail box full. Sent patient message via [employer]. Kathleen Elmore RN I was unable to get the medication to submit electronically to the pharmacy. It printed out here and the patient will need to pick it up here at the office prior to her MRI. Daija Alcocer PA-C Message forwarded to Daija Alcocer PA-C for review. Kathleen Elmore RN Patient calling to inquire if Daija Alcocer would call her in an RX to take before her MRI on 05/18 for anxiety about having the MRI. Please advise and call patient with questions [phone]. Patients preferred pharmacy is [facility]. Thank you documented in this encounter [facility] 04-29-2022 Note HNO ID: [id number] Author: Jade Melgoza, PT, DPT Service: ? Author Type: Physical Therapist Type: Progress Notes Filed: 04/29/2022 11:57 AM Note Text: Episode Visit Count: 21 Therapist That Will Oversee The Plan Of Care: Jade Melgoza Start of Care Date: 11/19/21 Onset Date: 02/19/21 Plan of Care Certification Date: 02/02/22 Next Certification Due Date: 03/04/22 Patient Identified by Name and Date of : Yes REHABILITATION AND SPORTS THERAPY PHYSICAL THERAPY DISCONTINUANCE OF CARE PLAN OF CARE UPDATE: Assessment: Sharon Reed is discontinued from Physical Therapy services due to goal achievement and maximal benefit.. Patient was seen for 21 visits from Start of Care Date: 11/19/21 to 04/29/2022 and treatment included: Therapeutic exercise, Neuromuscular re-education, Manual therapy, Therapeutic activities, Self-correction management, Gait training, Patient/Family/Caregiver Education, Body mechanics training, Functional training and General conditioning. Goals for Episode of Care: updated 04/29/2022 [place] in home exercise program.-MET Patient will decrease pain rating by 2 points to meet minimal clinical important difference for numeric pain rating scale.(9/10 in knee and (5/10) in left side low back 301/ 04/29/2022 -met Patient will demonstrate increase in left LE strength to 4+/5 during manual muscle testing in order to improve function for basic self-care tasks, leisure / recreation skills, light functional tasks and prior functional tasks.--not met, but did increase Perform car mobility and bed mobility without pain.--progressing, occasionally Patient will Improve Timed Up and Go to 8 seconds to demonstrate decreased risk of falling.-progressed to not being a fall risk Normal gait.--met Reciprocal stair negotiation.- met Tolerate standing/sitting for >5 minutes without increased pain.--MET Be able to maintain PPT for 10 seconds x 10 reps and bridge for 60 seconds-met for PPT, 15 seconds for bridge Increased sit <> stand above age match -met Patient Goals: to decrease back pain SUBJECTIVE: Patient Reason for Visit: Pt reports that today is a good day, has had some days where her knee has locked up on her. No falls reported since February.. Pain: Pain Pain Level: 2 Post Treatment Pain Post Treatment Pain Level: No Change PROMIS Scales T-scores: mean of general population = 50. 5 points is clinically meaningfully difference Percentiles provide an indication of how the patient's score ranks in relation to the general population. Higher percentile rankings indicate better function/quality of life. 50th percentile is the average of the general population and indicates half of respondents had a worse score. T-scores: mean of general population = 50. 5 points is clinically meaningfully difference Percentiles provide an indication of how the patient's score ranks in relation to the general population. Higher percentile rankings indicate better function/quality of life. 50th percentile is the average of the general population and indicates half of respondents had a worse score. OBJECTIVE MEASURES WITH LEVEL OF FUNCTION: LE Strength R Hip Flexion (L2): 4+/5 R Knee Extension (L3): 5/5 R Knee Flexion: 5/5 L Hip Flexion (L2): 4/5 L Knee Flexion: 4/5 (jerky) L Ankle Dorsiflexion (L4): 4/5 (jerky) Functional Performance Test Results 30 Second Chair Stand Test: 11 reps 5 Times Sit to Stand Test : 14.5 sec Timed Up and Go (sec): 11.03 sec TREATMENT: Therapeutic Exercise: 1: reassessment with discussion about d/c -educated for stair negotiation for knee flexion on left knee in order to perform reciprocal pattern Skilled Intervention: Patient was educated in proper exercise technique and purpose for exercises. Billing Therapeutic Exercise Treatment Minutes: 30 Total Treatment Time Minutes (timed/untimed): 30 Jade Melgoza PT, DPT [facility] 04-29-2022 History of Present illness Narrative Episode Visit Count: 21 Therapist That Will Oversee The Plan Of Care: Jade Melgoza Start of Care Date: 11/19/21 Onset Date: 02/19/21 Plan of Care Certification Date: 02/02/22 Next Certification Due Date: 03/04/22 Patient Identified by Name and Date of : Yes REHABILITATION AND SPORTS THERAPY PHYSICAL THERAPY DISCONTINUANCE OF CARE PLAN OF CARE UPDATE: Assessment: Sharon Reed is discontinued from Physical Therapy services due to goal achievement and maximal benefit.. Patient was seen for 21 visits from Start of Care Date: 11/19/21 to 04/29/2022 and treatment included: Therapeutic exercise, Neuromuscular re-education, Manual therapy, Therapeutic activities, Self-correction management, Gait training, Patient/Family/Caregiver Education, Body mechanics training, Functional training and General conditioning. Goals for Episode of Care: updated 04/29/2022 [place] in home exercise program.-MET Patient will decrease pain rating by 2 points to meet minimal clinical important difference for numeric pain rating scale.(9/10 in knee and (5/10) in left side low back 301/ 04/29/2022 -met Patient will demonstrate increase in left LE strength to 4+/5 during manual muscle testing in order to improve function for basic self-care tasks, leisure / recreation skills, light functional tasks and prior functional tasks.--not met, but did increase Perform car mobility and bed mobility without pain.--progressing, occasionally Patient will Improve Timed Up and Go to 8 seconds to demonstrate decreased risk of falling.-progressed to not being a fall risk Normal gait.--met Reciprocal stair negotiation.- met Tolerate standing/sitting for >5 minutes without increased pain.--MET Be able to maintain PPT for 10 seconds x 10 reps and bridge for 60 seconds-met for PPT, 15 seconds for bridge Increased sit <> stand above age match -met Patient Goals: to decrease back pain SUBJECTIVE: Patient Reason for Visit: Pt reports that today is a good day, has had some days where her knee has locked up on her. No falls reported since February.. Pain: Pain Pain Level: 2 Post Treatment Pain Post Treatment Pain Level: No Change PROMIS Scales T-scores: mean of general population = 50. 5 points is clinically meaningfully difference Percentiles provide an indication of how the patient's score ranks in relation to the general population. Higher percentile rankings indicate better function/quality of life. 50th percentile is the average of the general population and indicates half of respondents had a worse score. T-scores: mean of general population = 50. 5 points is clinically meaningfully difference Percentiles provide an indication of how the patient's score ranks in relation to the general population. Higher percentile rankings indicate better function/quality of life. 50th percentile is the average of the general population and indicates half of respondents had a worse score. OBJECTIVE MEASURES WITH LEVEL OF FUNCTION: LE Strength R Hip Flexion (L2): 4+/5 R Knee Extension (L3): 5/5 R Knee Flexion: 5/5 L Hip Flexion (L2): 4/5 L Knee Flexion: 4/5 (jerky) L Ankle Dorsiflexion (L4): 4/5 (jerky) Functional Performance Test Results 30 Second Chair Stand Test: 11 reps 5 Times Sit to Stand Test : 14.5 sec Timed Up and Go (sec): 11.03 sec TREATMENT: Therapeutic Exercise: 1: reassessment with discussion about d/c -educated for stair negotiation for knee flexion on left knee in order to perform reciprocal pattern Skilled Intervention: Patient was educated in proper exercise technique and purpose for exercises. Billing Therapeutic Exercise Treatment Minutes: 30 Total Treatment Time Minutes (timed/untimed): 30 Jade Melgoza PT, DPT documented in this encounter [facility] 03-31-2022 Note HNO ID: [id number] Author: Florence Finley, DO Service: ? Author Type: Physician Type: Progress Notes Filed: 03/31/2022 1:25 PM Note Text: Follow Up Visit Chief Complaint Sharon Reed is a 76 year old female who presents today for follow up office visit. Patient presents with: Left Wrist - Follow Up, Pain History of Present Illness PAIN EVALUATION 03/31/2022 1305 Pain Level: 3 Pain Location: Wrist-Left Description: Aching;Sharp;Throbbing;Shooting;Sore;S tabbing Duration Amount of Time: ? ongoing Frequency: Continuous Intervention/Comfort measure: Cold;Reposition;Relaxation;Medication; Other: See comment cortisone injection, OT HPI: Sharon Reed is a 76 year old female for a follow up visit left wrist pain. Patient has not had any relief from conservative treatments. Here to go over MRI results. Pain history is noted as above. Is there any overall improvement in your condition? No Any new injury, since being seen last: No REVIEW OF SYMPTOMS: Patient did not have, and does not currently have, any weight loss, malaise, fever, chills, headache, chest pain, chest pressure, palpitations, cough, shortness of breath, orthopnea, paroxsymal nocturnal dyspnea, nausea, vomiting, diarrhea, constipation, melena, hematochezia, urinary difficulties, prolonged bleeding, easily bruising, heat or cold intolerance, new onset joint pain or swelling, new onset extremity weakness or numbness, new onset auditory or visual disturbances, lightheadedness, dizziness, partial loss of consciousness or full loss of consciousness. Current Outpatient Medications Medication Sig - methylPREDNISolone (MEDROL) 4 mg Take by mouth. - VITAMIN D-3 50 mcg (2,000 unit) cap Take 1 capsule by mouth once daily. - [id number]-MG-[id number]-[id number]-[id number]-PIZD-be-mv 1.5 mg iron- 8.73 mg CpID Take by mouth once daily. - brimonidine (ALPHAGAN) 0.2 % ophthalmic solution Use 1 Drop in the left eye every 12 hours. - latanoprost (XALATAN) 0.005 % ophthalmic solution Use 1 Drop in the left eye once daily. Instill 1 drop in each eye at bedtime. - pantoprazole DR (PROTONIX) 40 mg tablet TAKE 1 TABLET BY MOUTH 30-45 MINUTES BEFORE BREAKFAST - atorvastatin (LIPITOR) 20 mg tablet daily at bedtime. - cyclobenzaprine (FLEXERIL) 5 mg tablet Take 5 mg by mouth three times daily as needed. - traMADol (ULTRAM) 50 mg tablet once daily. - meloxicam (MOBIC) 7.5 mg tablet Take 1 tablet by mouth once daily. Take this directly following a meal - RESTASIS 0.05 % ophthalmic emulsion INSTILL 1 DROP INTO EACH EYE TWICE DAILY DIRECTED - Verapamil HCl 360 mg 24 hr capsule VERAPAMIL HCL ER 360 MG [id number] No current facility-administered medications for this visit. Physical Exam Vitals: There were no vitals taken for this visit. Psych: Pleasant, good affect and mood General Appearance: Well appearing, alert, in no acute distress, well-hydrated, well nourished.. Skin: Skin color, texture, turgor normal, no suspicious rashes or lesions. Peripheral Pulses: Normal. Neurologic: Gait normal. Reflexes normal and symmetric. Sensation grossly intact.. Lymph Nodes: No cervical lymphadenopathy, No supraclavicular lymphadenopathy, No axillary lymphadenopathy. and No inguinal lymphadenopathy.. Respiratory: No recent pulmonary infection, hemoptysis, chronic cough, or shortness of breath at rest Rheumatologic: Joint deformities: Left wrist pain Right Hand Exam Right hand exam is normal. Tenderness The patient is experiencing no tenderness. Range of Motion The patient has normal right wrist ROM. Wrist Extension: normal Flexion: normal Pronation: normal Supination: normal Muscle Strength The patient has normal right wrist strength. Tests Phalen?s Sign: negative Tinel's sign (median nerve): negative Mian's test: negative Other Erythema: absent Sensation: normal Pulse: present Comments: B/l med/uln/rad/ax nerves intact Left Hand Exam Tenderness The patient is experiencing tenderness in the ulnar area. Range of Motion Wrist Extension: abnormal Flexion: abnormal Pronation: normal Supination: normal Muscle Strength The patient has normal left wrist strength. Tests Phalen?s Sign: negative Tinel's sign (median nerve): negative Mian's test: negative Other Erythema: absent Sensation: normal Pulse: present Comments: Ttp tfcc/ecu Assessment and Plan Radiographs: I have independently reviewed films and my findings are the same. and I have reviewed the images with the patient and family. Last MRI Knee - Impression Only No resulted procedures found. Last MRI Wrist - Impression Only MRI WRIST WO IVCON LT Exam End: 03/04/2022 10:34 AM (Final result) Impression: IMPRESSION: 1. Tear of the central articular disc of the TFCC. There is partial tearing of the palmar radial attachment of the TFCC and partial tearing of the peripheral attachments of the TFCC. 2. Te (more content not included)... [facility] 03-31-2022 History of Present illness Narrative Images from the original note were not included. Follow Up Visit Chief Complaint Sharon Reed is a 76 year old female who presents today for follow up office visit. Patient presents with: Left Wrist - Follow Up, Pain History of Present Illness PAIN EVALUATION 03/31/2022 1305 Pain Level: 3 Pain Location: Wrist-Left Description: Aching;Sharp;Throbbing;Shooting;Sore;S tabbing Duration Amount of Time: ongoing Frequency: Continuous Intervention/Comfort measure: Cold;Reposition;Relaxation;Medication; Other: See comment cortisone injection, OT HPI: Sharon Reed is a 76 year old female for a follow up visit left wrist pain. Patient has not had any relief from conservative treatments. Here to go over MRI results. Pain history is noted as above. Is there any overall improvement in your condition? No Any new injury, since being seen last: No REVIEW OF SYMPTOMS: Patient did not have, and does not currently have, any weight loss, malaise, fever, chills, headache, chest pain, chest pressure, palpitations, cough, shortness of breath, orthopnea, paroxsymal nocturnal dyspnea, nausea, vomiting, diarrhea, constipation, melena, hematochezia, urinary difficulties, prolonged bleeding, easily bruising, heat or cold intolerance, new onset joint pain or swelling, new onset extremity weakness or numbness, new onset auditory or visual disturbances, lightheadedness, dizziness, partial loss of consciousness or full loss of consciousness. Current Outpatient Medications Medication Sig methylPREDNISolone (MEDROL) 4 mg Take by mouth. VITAMIN D-3 50 mcg (2,000 unit) cap Take 1 capsule by mouth once daily. [id number]-JE-qun-[id number]-PRE-SMLR-be-mv 1.5 mg iron- 8.73 mg CpID Take by mouth once daily. brimonidine (ALPHAGAN) 0.2 % ophthalmic solution Use 1 Drop in the left eye every 12 hours. latanoprost (XALATAN) 0.005 % ophthalmic solution Use 1 Drop in the left eye once daily. Instill 1 drop in each eye at bedtime. pantoprazole DR (PROTONIX) 40 mg tablet TAKE 1 TABLET BY MOUTH 30-45 MINUTES BEFORE BREAKFAST atorvastatin (LIPITOR) 20 mg tablet daily at bedtime. cyclobenzaprine (FLEXERIL) 5 mg tablet Take 5 mg by mouth three times daily as needed. traMADol (ULTRAM) 50 mg tablet once daily. meloxicam (MOBIC) 7.5 mg tablet Take 1 tablet by mouth once daily. Take this directly following a meal RESTASIS 0.05 % ophthalmic emulsion INSTILL 1 DROP INTO EACH EYE TWICE DAILY DIRECTED Verapamil HCl 360 mg 24 hr capsule VERAPAMIL HCL ER 360 MG [id number] No current facility-administered medications for this visit. Physical Exam Vitals: There were no vitals taken for this visit. Psych: Pleasant, good affect and mood General Appearance: Well appearing, alert, in no acute distress, well-hydrated, well nourished.. Skin: Skin color, texture, turgor normal, no suspicious rashes or lesions. Peripheral Pulses: Normal. Neurologic: Gait normal. Reflexes normal and symmetric. Sensation grossly intact.. Lymph Nodes: No cervical lymphadenopathy, No supraclavicular lymphadenopathy, No axillary lymphadenopathy. and No inguinal lymphadenopathy.. Respiratory: No recent pulmonary infection, hemoptysis, chronic cough, or shortness of breath at rest Rheumatologic: Joint deformities: Left wrist pain Right Hand Exam Right hand exam is normal. Tenderness The patient is experiencing no tenderness. Range of Motion The patient has normal right wrist ROM. Wrist Extension: normal Flexion: normal Pronation: normal Supination: normal Muscle Strength The patient has normal right wrist strength. Tests Phalen s Sign: negative Tinel's sign (median nerve): negative Mian's test: negative Other Erythema: absent Sensation: normal Pulse: present Comments: B/l med/uln/rad/ax nerves intact Left Hand Exam Tenderness The patient is experiencing tenderness in the ulnar area. Range of Motion Wrist Extension: abnormal Flexion: abnormal Pronation: normal Supination: normal Muscle Strength The patient has normal left wrist strength. Tests Phalen s Sign: negative Tinel's sign (median nerve): negative Mian's test: negative Other Erythema: absent Sensation: normal Pulse: present Comments: Ttp tfcc/ecu Assessment and Plan Radiographs: I have independently reviewed films and my findings are the same. and I have reviewed the images with the patient and family. Last MRI Knee - Impression Only No resulted procedures found. Last MRI Wrist - Impression Only MRI WRIST WO IVCON Exam End: 03/04/2022 10:34 AM (Final result) Impression: IMPRESSION: 1. Tear of the central articular disc of the TFCC. There is partial tearing of the palmar radial attachment of the TFCC and partial tearing of the peripheral attachments of the TFCC. 2. Tearing of the palmar scapholunate ligaments. No widening of the scapholunate interval. 3. Poor delineation of the lunotriquetral ligaments which are likely intact as there is no widening of the lunotriquetral interval.... Complete Results IMPRESSION: 1. Tear of the central articular disc of the TFCC. There is partial tearing of the palmar radial attachment of the TFCC and partial tearing of the peripheral attachments of the TFCC. 2. Tearing of the palmar scapholunate ligaments. No widening of the scapholunate interval. 3. Poor delineation of the lunotriquetral ligaments which are likely intact as there is no widening of the lunotriquetral interval. 4. Mild tenosynovitis versus physiologic fluid adjacent to the extensor carpi radialis tendons and the flexor pollicis longus tendon. 5. Osteoarthrosis of the wrist. 6. Small distal radial ulnar joint effusion. Impression: Encounter Diagnosis ICD-10-CM 1. Injury of triangular fibrocartilage complex (TFCC) of left wrist, initial encounter S69.82XA 2. Scapholunate ligament injury with no instability, left, initial encounter S69.92XA 3. Tendinitis of extensor tendon of hand M77.8 Discussed MRI findings in detail. Per patient, no pain ulnar sided until after fall and now with continued pain. Injection did provide some relief, but would defer for now. Has tried brace/splints, otc nsaids and should continue as tolerated. Told to follow up when ready for another injection. Patient aware and in agreement of plan. All questions answered. Today, in detail, through a thorough evaluation, we discussed possible etiologies of pain and our plans for further diagnostic and therapeutic interventions. We discussed strategies for decreasing pain and improving strength, stability and motion. Patient's questions were answered in detailed. Patient verbalizes understanding and agrees with the treatment plan as discussed. documented in this encounter [facility] 03-09-2022 History of Present illness Narrative Images from the original note were not included. DEPARTMENT OF ORTHOPAEDICS PATIENT INFO: Sharon Reed 76 year old REFERRING M.D.: SELF HISTORY CHIEF COMPLAINT: Left knee pain HPI: Sharon is a 76 year old female that presents today with the complaints of left knee pain. She also reports lower back pain, left mathis pain that radiates down to her foot. She was last seen by Dr. Yousif on 02/11 and was given a hinged knee brace. She reports this does help when she wears it but she is not wearing it all the time because it sometimes slides down her leg. Of note, she has been seen by AMADEO Mckay and he ordered a MRI of the lumbar spine which has not been completed. She reports she had previously done outside [facility] but I do not have those images to review. Ms. Reed is here to discuss the current status of her joint and the alternatives for treatment. 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 VITAMIN D-3 50 mcg (2,000 unit) cap Take 1 capsule by mouth once daily. [id number]-SDL-[id number] 1.5 mg iron- 8.73 mg CpID Take by mouth once daily. brimonidine (ALPHAGAN) 0.2 % ophthalmic solution Use 1 Drop in the left eye every 12 hours. 5 mL 11 latanoprost (XALATAN) 0.005 % ophthalmic solution Use 1 Drop in the left eye once daily. Instill 1 drop in each eye at bedtime. 7.[address] (PROTONIX) 40 mg tablet TAKE 1 TABLET BY MOUTH 30-45 MINUTES BEFORE BREAKFAST atorvastatin (LIPITOR) 20 mg tablet daily at bedtime. cyclobenzaprine (FLEXERIL) 5 mg tablet Take 5 mg by mouth three times daily as needed. traMADol (ULTRAM) 50 mg tablet once daily. meloxicam (MOBIC) 7.5 mg tablet Take 1 tablet by mouth once daily. Take this directly following a meal 60 tablet 0 RESTASIS 0.05 % ophthalmic emulsion INSTILL 1 DROP INTO EACH EYE TWICE DAILY DIRECTED Verapamil HCl 360 mg 24 hr capsule VERAPAMIL HCL ER 360 MG [id number] No current facility-administered medications for this visit. ALLERGIES Allergen Reactions Codeine Hives, GI Upset, Itching, Other: See Comments Other reaction(s): Nausea Adhesive Tape-Silic* Unknown Latex Rash BLISTERS ON SKIN Tramadol Itching FAMILY HISTORY Problem Relation Age of Onset Diabetes Sister Diabetes Brother Heart Daughter Heart Daughter Heart Son Heart Son Glaucoma Maternal Grandmother Social History Tobacco Use Smoking status: Never Smoker Smokeless tobacco: Never Used Vaping Use Vaping Use: Never used Substance Use Topics Alcohol use: No Drug use: No PHYSICAL EXAM: Body mass index is 40.85 kg/m . GENERAL:Wnl nutrition, no deformities, healthy appearing. Obese CV: No extremity swelling, varices, edema, pallor, erythema PULSES: Normal,bilateral femoral 2+/2+, popliteal 2+/2+, dorsalis pedis 2+/2+, posterior tibial 2+/2+ SKIN: No rash, lesions. involving the four extremities. NEURO/PSYCH: A/Ox3. Nl mood, with no signs of depression, anxiety, or agitation. There are no pathologic reflexes. LYMPHATIC: There is no adenoathy to palpation. LOWER EXTREMITIES Both lower extremities neurovascularly intact. MOTOR EXAM: Normal Left Lower Extremity: KNEE EXAM: Left: Prior incision well healed without erythema or warmth Range of motion is 5 degrees in extension and 120 degrees of flexion. Extension La degrees Pain with ROM: Yes Effusion: Mild Globally TTP Pain with patellar compression: Yes Stability: Anterior/Posterior stable, mild varus/valgus instability Hip Exam: flexion to 100+ degrees, full extension, internal/external rotation adequate and no pain with log roll Neurovascular Status: Sensation Intact, Moves foot and ankle up & down and 2+ dorsalis pedis Positive pain with straight leg raise reproducing low back, knee and foot pain X-RAYS: No new today MEDICAL DECISION MAKING: ASSESSMENT: Follow up left knee pain PLAN: Sharon and I had a long discussion about treatment options. Prior workup for infection and loosening negative. She reports improvement in knee pain with the hinged knee brace when she wears it. Her low back pain and radicular symptoms seem to be the main issue today. I will refer her back to spine for potential MARIELENA which reports have her helped in the past. I encouraged her to get the repeat MRI per AMADEO Araujo recommendations. She can follow up with me as needed. Jasper Madrigal APRN.CNP March 09, 2022 10:13 AM documented in this encounter [facility] 03-04-2022 Miscellaneous Notes Patient cancelled her re-check visit today with physical therapy as she was not felling well. I telephoned patient and requested a call back to please reschedule. documented in this encounter [facility] 03-04-2022 Note HNO ID: [id number] Author: GRECIA Cobb Service: Radiology Author Type: Technologist Type: Progress Notes Filed: 03/04/2022 10:07 AM Note Text: Radiology Service Progress Note PATIENT NAME: Sharon Reed DATE OF SERVICE: March 04, 2022 TIME: 10:06 AM PATIENT IDENTITY VERIFICATION COMPLETED USING TWO (2) IDENTIFIERS: Name and Date of confirmed by patient verbally and Name and Date of confirmed by identification band. FALL SCREENING: Has the patient had 2 falls in the last year or 1 fall with injury or currently using an Ambulatory Assistive Device (Walker, Cane, Wheelchair, Crutches, etc.)? Yes, Patient High Risk for Falls What interventions were put in place to prevent falls during this visit? [place] Risk Wristband Applied, Instructed Patient to Call for Help if Needed, Offered Assistance with Transfers/Clothing, Instructed Patient to Remain Seated (Not on Exam Table) Until Exam and Increased Observations by Caregivers PATIENT GENDER DATA: Female. status: : No status: NO. PATIENT RELEVANT IMPLANT DATA REVIEWED: Yes RADIOLOGY DEPARTMENT: MR; Exam(s) Completed: Upper MSK: Wrist, left PERIPHERAL IV DATA: Not applicable SIGNED BY: GRECIA Cobb March 04, 2022 10:06 AM [facility] 03-04-2022 History of Present illness Narrative Radiology Service Progress Note PATIENT NAME: Sharon Reed DATE OF SERVICE: March 04, 2022 TIME: 10:06 AM PATIENT IDENTITY VERIFICATION COMPLETED USING TWO (2) IDENTIFIERS: Name and Date of confirmed by patient verbally and Name and Date of confirmed by identification band. FALL SCREENING: Has the patient had 2 falls in the last year or 1 fall with injury or currently using an Ambulatory Assistive Device (Walker, Cane, Wheelchair, Crutches, etc.)? Yes, Patient High Risk for Falls What interventions were put in place to prevent falls during this visit? [place] Risk Wristband Applied, Instructed Patient to Call for Help if Needed, Offered Assistance with Transfers/Clothing, Instructed Patient to Remain Seated (Not on Exam Table) Until Exam and Increased Observations by Caregivers PATIENT GENDER DATA: Female. status: : No status: NO. PATIENT RELEVANT IMPLANT DATA REVIEWED: Yes RADIOLOGY DEPARTMENT: MR; Exam(s) Completed: Upper MSK: Wrist, left PERIPHERAL IV DATA: Not applicable SIGNED BY: GRECIA Cobb March 04, 2022 10:06 AM documented in this encounter [facility] 03-02-2022 Note HNO ID: [id number] Author: Jade Melgoza PT, DPT Service: ? Author Type: Physical Therapist Type: Progress Notes Filed: 03/02/2022 1:36 PM Note Text: Episode Visit Count: 20 Therapist That Will Oversee The Plan Of Care: Jade Melgoza Start of Care Date: 11/19/21 Onset Date: 02/19/21 Plan of Care Certification Date: 02/02/22 Next Certification Due Date: 03/04/22 Patient Identified by Name and Date of : Yes REHABILITATION AND SPORTS THERAPY PHYSICAL THERAPY TREATMENT NOTE ASSESSMENT: Sharon Reed tolerated the session with expected muscle soreness. She demonstrated improvements in standing balance activities. The patient will continue to benefit from ongoing skilled physical therapy to progress toward set goals. PLAN FOR NEXT VISIT: recheck SUBJECTIVE: Patient Reason for Visit: Pt reports that her left knee was sore this morning and now it feels better wiht movment. Pt reports that she does not like to go on the elevator without another person. Pain: Pain Pain Level: 0 OBJECTIVE MEASURES WITH LEVEL OF FUNCTION: Gait Gait Device: None Gait Deviations: General Deviations General Deviations/Observations: (antalgic gait pattern when fatigued) Stairs: Modified Independent Stairs Device: Rail Number of Stairs: 3 Stairs: reciprical with left HR TREATMENT: Therapeutic Exercise: 1: Nu step seat 12, level 5 x 6 minutes for AROM of left knee to decrease stiffness during status update 7: step taps on smaller side of practice steps x 10 reps each with L HR only 9: sit to stand from chair x 10 Skilled Intervention: Patient was educated in proper exercise technique and purpose for exercises. Skilled judgment was provided in selection of appropriate interventions. Correct performance of therapeutic exercises was facilitated with verbal cuing. Neuromuscular Re-Education: 1: stepping over cones 2 x 5 reps, not alternating with CGA and gait belt 2: cone taps not alternating x 10 reps with CGA and GB Skilled Intervention: Skilled judgment used to assess appropriate program for balance and coordination activity. Education in proprioceptive/kinesthetic awareness during standing and dynamic activities. Insured patient safety with use of gait belt and CGA as needed Gait Trainin: reciprical pattern on steps x 4 laps with L HR 2: ambulation without AD with cuees for preventing antalgic gait pattern x 2 laps of 70 feet Skilled Intervention: Patient was provided stand by assist during pre-gait/gait training to prevent falls and insure safety. Facilitated proper gait cycle with the use of verbal cues for correction of gait deviations identified in the objective section above. Gait belt utilized during session for safety. Billing Therapeutic Exercise Treatment Minutes: 15 Neuromuscular Re-Education Treatment Minutes: 15 Gait Training Treatment Minutes: 10 Total Treatment Time Minutes (timed/untimed): 40 Jade Melgoza, PT, DPT [facility] 03-02-2022 History of Present illness Narrative Episode Visit Count: 20 Therapist That Will Oversee The Plan Of Care: Jade Melgoza Start of Care Date: 11/19/21 Onset Date: 02/19/21 Plan of Care Certification Date: 02/02/22 Next Certification Due Date: 03/04/22 Patient Identified by Name and Date of : Yes REHABILITATION AND SPORTS THERAPY PHYSICAL THERAPY TREATMENT NOTE ASSESSMENT: Sharon Reed tolerated the session with expected muscle soreness. She demonstrated improvements in standing balance activities. The patient will continue to benefit from ongoing skilled physical therapy to progress toward set goals. PLAN FOR NEXT VISIT: recheck SUBJECTIVE: Patient Reason for Visit: Pt reports that her left knee was sore this morning and now it feels better wiht movment. Pt reports that she does not like to go on the elevator without another person. Pain: Pain Pain Level: 0 OBJECTIVE MEASURES WITH LEVEL OF FUNCTION: Gait Gait Device: None Gait Deviations: General Deviations General Deviations/Observations: (antalgic gait pattern when fatigued) Stairs: Modified Independent Stairs Device: Rail Number of Stairs: 3 Stairs: reciprical with left HR TREATMENT: Therapeutic Exercise: 1: Nu step seat 12, level 5 x 6 minutes for AROM of left knee to decrease stiffness during status update 7: step taps on smaller side of practice steps x 10 reps each with L HR only 9: sit to stand from chair x 10 Skilled Intervention: Patient was educated in proper exercise technique and purpose for exercises. Skilled judgment was provided in selection of appropriate interventions. Correct performance of therapeutic exercises was facilitated with verbal cuing. Neuromuscular Re-Education: 1: stepping over cones 2 x 5 reps, not alternating with CGA and gait belt 2: cone taps not alternating x 10 reps with CGA and GB Skilled Intervention: Skilled judgment used to assess appropriate program for balance and coordination activity. Education in proprioceptive/kinesthetic awareness during standing and dynamic activities. Insured patient safety with use of gait belt and CGA as needed Gait Trainin: reciprical pattern on steps x 4 laps with L HR 2: ambulation without AD with cuees for preventing antalgic gait pattern x 2 laps of 70 feet Skilled Intervention: Patient was provided stand by assist during pre-gait/gait training to prevent falls and insure safety. Facilitated proper gait cycle with the use of verbal cues for correction of gait deviations identified in the objective section above. Gait belt utilized during session for safety. Billing Therapeutic Exercise Treatment Minutes: 15 Neuromuscular Re-Education Treatment Minutes: 15 Gait Training Treatment Minutes: 10 Total Treatment Time Minutes (timed/untimed): 40 Jade Melgoza PT, DPT documented in this encounter [facility] 02-25-2022 Note HNO ID: [id number] Author: Tatum Comer PTA Service: ? Author Type: Tool Lapper Hand Type: Progress Notes Filed: 02/25/2022 2:15 PM Note Text: Episode Visit Count: 19 Therapist That Will Oversee The Plan Of Care: Jade Melgoza Start of Care Date: 11/19/21 Onset Date: 02/19/21 Plan of Care Certification Date: 02/02/22 Next Certification Due Date: 03/04/22 REHABILITATION AND SPORTS THERAPY PHYSICAL THERAPY TREATMENT NOTE ASSESSMENT: Sharon Reed tolerated the session with decreased pain. She demonstrated difficulty with simulated car transfer. Improvement noted with bridging tolerance and step ups. The patient will continue to benefit from ongoing skilled physical therapy to progress toward set goals. PLAN FOR NEXT VISIT: 6 step up with L railing SUBJECTIVE: Patient Reason for Visit: Patient reports that her left knee became swollen last night and she didn't sleep. Patient feels that she might have overdone it yesterday at the center. Patient states that the brace might be in next . Difficulty with getting left leg into the car. Pain: Pain Pain Level: 5 Pain Location: Knee - Left Post Treatment Pain Post Treatment Pain Level: 3 Post Treatment Pain Location: Knee - Left OBJECTIVE MEASURES WITH LEVEL OF FUNCTION: L lower extremity weakness Bridging 60 second tolerance TREATMENT: Therapeutic Exercise: 1: Nu step seat 12, level 5 x 6 minutes for AROM of left knee to decrease stiffness during status update 2: LTR 10 x 5 seconds 3: bridge 60 seconds 4: AB with january 5: AB with SLR x 10 each 6: Seated Hip L/R flexion over cone x 10 each Skilled Intervention: Patient was educated in proper exercise technique and purpose for exercises. Skilled judgment was provided in selection of appropriate interventions. Correct performance of therapeutic exercises was facilitated with verbal and visual cuing. Therapeutic Activity: 1: simulated car transfer x 6 Skilled Intervention: Educated on proper/safe technique for activities performed today. Activity progression based on professional judgment. Gait Trainin: reciprical steps in gym x 3 with bilateral railings 2: L 4 step up with R railing x 7 3: L 6 step up with R railing x 10 Skilled Intervention: Facilitated proper gait cycle with the use of verbal and visual cues for correction of gait deviations. Gait belt utilized during session for safety. Education provided to patient regarding the proper sequence for stair negotiation. Billing Therapeutic Exercise Treatment Minutes: 23 Therapeutic Activity Treatment Minutes: 5 Gait Training Treatment Minutes: 12 Total Treatment Time Minutes (timed/untimed): 40 Tatum Comer [facility] 02-25-2022 History of Present illness Narrative Episode Visit Count: 19 Therapist That Will Oversee The Plan Of Care: Jade Melgoza Start of Care Date: 11/19/21 Onset Date: 02/19/21 Plan of Care Certification Date: 02/02/22 Next Certification Due Date: 03/04/22 REHABILITATION AND SPORTS THERAPY PHYSICAL THERAPY TREATMENT NOTE ASSESSMENT: Sharon Reed tolerated the session with decreased pain. She demonstrated difficulty with simulated car transfer. Improvement noted with bridging tolerance and step ups. The patient will continue to benefit from ongoing skilled physical therapy to progress toward set goals. PLAN FOR NEXT VISIT: 6 step up with L railing SUBJECTIVE: Patient Reason for Visit: Patient reports that her left knee became swollen last night and she didn't sleep. Patient feels that she might have overdone it yesterday at the center. Patient states that the brace might be in next . Difficulty with getting left leg into the car. Pain: Pain Pain Level: 5 Pain Location: Knee - Left Post Treatment Pain Post Treatment Pain Level: 3 Post Treatment Pain Location: Knee - Left OBJECTIVE MEASURES WITH LEVEL OF FUNCTION: L lower extremity weakness Bridging 60 second tolerance TREATMENT: Therapeutic Exercise: 1: Nu step seat 12, level 5 x 6 minutes for AROM of left knee to decrease stiffness during status update 2: LTR 10 x 5 seconds 3: bridge 60 seconds 4: AB with january x 15 5: AB with SLR x 10 each 6: Seated Hip L/R flexion over cone x 10 each Skilled Intervention: Patient was educated in proper exercise technique and purpose for exercises. Skilled judgment was provided in selection of appropriate interventions. Correct performance of therapeutic exercises was facilitated with verbal and visual cuing. Therapeutic Activity: 1: simulated car transfer x 6 Skilled Intervention: Educated on proper/safe technique for activities performed today. Activity progression based on professional judgment. Gait Trainin: reciprical steps in gym x 3 with bilateral railings 2: L 4 step up with R railing x 7 3: L 6 step up with R railing x 10 Skilled Intervention: Facilitated proper gait cycle with the use of verbal and visual cues for correction of gait deviations. Gait belt utilized during session for safety. Education provided to patient regarding the proper sequence for stair negotiation. Billing Therapeutic Exercise Treatment Minutes: 23 Therapeutic Activity Treatment Minutes: 5 Gait Training Treatment Minutes: 12 Total Treatment Time Minutes (timed/untimed): 40 Tatum Comer PTA documented in this encounter [facility] 02-23-2022 Note HNO ID: [id number] Author: Tatum Comer PTA Service: ? Author Type: Tool Lapper Hand Type: Progress Notes Filed: 02/23/2022 2:14 PM Note Text: Episode Visit Count: 18 Therapist That Will Oversee The Plan Of Care: Jade Melgoza Start of Care Date: 11/19/21 Onset Date: 02/19/21 Plan of Care Certification Date: 02/02/22 Next Certification Due Date: 03/04/22 REHABILITATION AND SPORTS THERAPY PHYSICAL THERAPY TREATMENT NOTE ASSESSMENT: Sharon Reed tolerated the session with fatigue. She demonstrated difficulty with sustained bridging and improvements in sit to stand activities. No calf pain this session or for past 3 day . The patient will continue to benefit from ongoing skilled physical therapy to progress toward set goals. PLAN FOR NEXT VISIT: Continue to monitor calf symptoms SUBJECTIVE: Patient Reason for Visit: Patient reports Yesterday was good . Today my knee feels looser. I started back exercising at the center. No news on the brace. Pain: Pain Pain Level: 3 Pain Location: Knee - Left Description: (looser) Pain Level 2: 2 Pain Location 2: Back Post Treatment Pain Post Treatment Pain Level: (Pt reports no pain) OBJECTIVE MEASURES WITH LEVEL OF FUNCTION: Patient ambulates with Rolator with forward flexed posture, decreased heel strike on left, decreased weight shift to left Sit to stand ( hands on thighs) 9 repetitions in 30 seconds 5 sit to stands (hands on thighs) in 16 seconds TREATMENT: Therapeutic Exercise: 1: Nu step seat 12, level 4 x 6 minutes for AROM of left knee to decrease stiffness during status update 2: LTR 10 x 5 seconds 3: bridge 42 seconds 5: Sit to stand with hands on knees 9 in 30 seconds, 5 ,in 16 seconds 6: Standing hip abduction with 3 # cuff weights x 10 7: LAQ with 3 # 15 x 3 seconds 8: Staning march with 3 # cuff weight , 10 x 2 Skilled Intervention: Patient was educated in proper exercise technique and purpose for exercises. Skilled judgment was provided in selection of appropriate interventions. Correct performance of therapeutic exercises was facilitated with verbal and visual cuing. Gait Trainin: Ambulation with Rolator for 3:46, 720 feet 2: Ascend/descend gym steps with reciprical pattern ( both 4 and 6 steps) x 5 sets with bilateral railing Skilled Intervention: Facilitated proper gait cycle with the use of verbal and visual cues for correction of gait deviations identified in the objective section above. Gait belt utilized during session for safety. Education provided to patient regarding the proper sequence for stair negotiation. Billing Therapeutic Exercise Treatment Minutes: 28 Gait Training Treatment Minutes: 11 Total Treatment Time Minutes (timed/untimed): 39 Tatum Comer [facility] 02-23-2022 History of Present illness Narrative Episode Visit Count: 18 Therapist That Will Oversee The Plan Of Care: Jade Melgoza Start of Care Date: 11/19/21 Onset Date: 02/19/21 Plan of Care Certification Date: 02/02/22 Next Certification Due Date: 03/04/22 REHABILITATION AND SPORTS THERAPY PHYSICAL THERAPY TREATMENT NOTE ASSESSMENT: Sharon Reed tolerated the session with fatigue. She demonstrated difficulty with sustained bridging and improvements in sit to stand activities. No calf pain this session or for past 3 day . The patient will continue to benefit from ongoing skilled physical therapy to progress toward set goals. PLAN FOR NEXT VISIT: Continue to monitor calf symptoms SUBJECTIVE: Patient Reason for Visit: Patient reports Yesterday was good . Today my knee feels looser. I started back exercising at the center. No news on the brace. Pain: Pain Pain Level: 3 Pain Location: Knee - Left Description: (looser) Pain Level 2: 2 Pain Location 2: Back Post Treatment Pain Post Treatment Pain Level: (Pt reports no pain) OBJECTIVE MEASURES WITH LEVEL OF FUNCTION: Patient ambulates with Rolator with forward flexed posture, decreased heel strike on left, decreased weight shift to left Sit to stand ( hands on thighs) 9 repetitions in 30 seconds 5 sit to stands (hands on thighs) in 16 seconds TREATMENT: Therapeutic Exercise: 1: Nu step seat 12, level 4 x 6 minutes for AROM of left knee to decrease stiffness during status update 2: LTR 10 x 5 seconds 3: bridge 42 seconds 5: Sit to stand with hands on knees 9 in 30 seconds, 5 ,in 16 seconds 6: Standing hip abduction with 3 # cuff weights x 10 7: LAQ with 3 # 15 x 3 seconds 8: Staning march with 3 # cuff weight , 10 x 2 Skilled Intervention: Patient was educated in proper exercise technique and purpose for exercises. Skilled judgment was provided in selection of appropriate interventions. Correct performance of therapeutic exercises was facilitated with verbal and visual cuing. Gait Trainin: Ambulation with Rolator for 3:46, 720 feet 2: Ascend/descend gym steps with reciprical pattern ( both 4 and 6 steps) x 5 sets with bilateral railing Skilled Intervention: Facilitated proper gait cycle with the use of verbal and visual cues for correction of gait deviations identified in the objective section above. Gait belt utilized during session for safety. Education provided to patient regarding the proper sequence for stair negotiation. Billing Therapeutic Exercise Treatment Minutes: 28 Gait Training Treatment Minutes: 11 Total Treatment Time Minutes (timed/untimed): 39 Tatum Comer PTA documented in this encounter [facility] 02-18-2022 Note HNO ID: [id number] Author: Tatum Comer PTA Service: ? Author Type: Tool Lapper Hand Type: Progress Notes Filed: 02/18/2022 3:40 PM Note Text: Episode Visit Count: 17 Therapist That Will Oversee The Plan Of Care: Jade Melgoza Start of Care Date: 11/19/21 Onset Date: 02/19/21 Plan of Care Certification Date: 02/02/22 Next Certification Due Date: 03/04/22 REHABILITATION AND SPORTS THERAPY PHYSICAL THERAPY TREATMENT NOTE ASSESSMENT: Sharon Reed tolerated the session with decreased pain. She demonstrated difficulty with endurance with gait, however patient is able to perform reciprocal steps in gym without increase in discomfort. Patient's calf discomfort may be result of sciatic issues. The patient will continue to benefit from ongoing skilled physical therapy to progress toward set goals. PLAN FOR NEXT VISIT: Consider positioning to determine if calf pain will decrease with positioning/repeated movements SUBJECTIVE: Patient Reason for Visit: Patient reports that her knee pain is traveling down her leg. Wanted to ask MD about pain down leg but didn't get a chance. Back pain is painful enough that I can't sleep on my left side. Pain in calf since she had fall. Pain: Pain Pain Level: 4 Pain Location: Knee - Left Description: Tightness Frequency: Continuous Pain Level 2: 3 Pain Location 2: Back (and down into left buttocks) Description 2: Sore Frequency 2: Continuous Post Treatment Pain Post Treatment Pain Level: (Left knee 1/10, back 2/10) OBJECTIVE MEASURES WITH LEVEL OF FUNCTION: Patient ambulates with Rolator with forward flexed posture, decreased height on left lower extremity TREATMENT: Therapeutic Exercise: 1: Nu step seat 12, level 4 x 5 minutes for AROM of left knee to decrease stiffness during status update 2: LTR 10 x 5 seconds 3: bridge 35 seconds 4: AB with january x 15 5: sit to stand from mat table x 10, no UE 6: Standing hip abduction with 3 # cuff weights Skilled Intervention: Patient was educated in proper exercise technique and purpose for exercises. Skilled judgment was provided in selection of appropriate interventions. Correct performance of therapeutic exercises was facilitated with verbal and visual cuing. Gait Trainin: Ambulation for 3 minutes 48 seconds with rollator, 450 feet then shortness of breath noted with patient requiring rest 2: Ascend/descend gym steps with reciprical pattern ( both 4 and 6 steps) x 4 sets with bilateral railing Skilled Intervention: Facilitated proper gait cycle with the use of verbal and visual cues for correction of gait deviations identified in the objective section above. Gait belt utilized during session for safety. Education provided to patient regarding the proper sequence for stair negotiation. Billing Therapeutic Exercise Treatment Minutes: 31 Gait Training Treatment Minutes: 13 Total Treatment Time Minutes (timed and untimed codes) : 44 Tatum Comer PTA [facility] 02-16-2022 Note HNO ID: [id number] Author: Tatum Comer PTA Service: ? Author Type: Tool Lapper Hand Type: Progress Notes Filed: 02/16/2022 6:48 PM Note Text: Episode Visit Count: 16 Therapist That Will Oversee The Plan Of Care: Jade Melgoza Start of Care Date: 11/19/21 Onset Date: 02/19/21 Plan of Care Certification Date: 02/02/22 Next Certification Due Date: 03/04/22 REHABILITATION AND SPORTS THERAPY PHYSICAL THERAPY TREATMENT NOTE ASSESSMENT: Sharon Reed tolerated the session with decreased pain. She demonstrated difficulty with bridging, challenged with clearing hips . The patient will continue to benefit from ongoing skilled physical therapy to progress toward set goals. PLAN FOR NEXT VISIT: Gait and steps next session SUBJECTIVE: Patient Reason for Visit: Patient reports that she is suppose to get a brace for her knee. Patient reports difficulty getting out of chairs. Pain: Pain Pain Level: 4 Pain Location: Knee - Left Description: Tightness Frequency: Continuous Pain Level 2: 3 Pain Location 2: Back Description 2: Burning Frequency 2: Continuous Post Treatment Pain Post Treatment Pain Level: (2-3/10 in back and L knee) OBJECTIVE MEASURES WITH LEVEL OF FUNCTION: LE PROM L Knee Extension: 0 Degrees L Knee Flexion: 117 Degrees TREATMENT: Therapeutic Exercise: 1: nu step seat 12, level 3 x 6 minutes for AROM of left knee to decrease stiffness during status update 4: EOB calf stretch with belt 3 x 20 seconds 5: HS stretches 3 x 20 seconds L 6: LAQ , L , 2 #, 10 x 3 seconds, 2 sets 7: seated january with 3 # 10 x 3 8: Left hip ER with orange 10 x 2 9: sit to stand from mat x 10 10: mini squats x 10 11: *Supine trunk rotation x 10to each side 12: * bridging 10 reps Skilled Intervention: Patient was educated in proper exercise technique and purpose for exercises. Reviewed and educated patient on additions/changes for home exercise program as above (*). Skilled judgment was provided in selection of appropriate interventions. Provided written instruction for home exercise program to facilitate proper performance and compliance. Correct performance of therapeutic exercises was facilitated with verbal and visual cuing. Billing Therapeutic Exercise Treatment Minutes: 40 Total Treatment Time Minutes (timed and untimed codes) : 40 Tatum Comer [facility] 02-16-2022 History of Present illness Narrative Episode Visit Count: 16 Therapist That Will Oversee The Plan Of Care: Jade Melgoza Start of Care Date: 11/19/21 Onset Date: 02/19/21 Plan of Care Certification Date: 02/02/22 Next Certification Due Date: 03/04/22 REHABILITATION AND SPORTS THERAPY PHYSICAL THERAPY TREATMENT NOTE ASSESSMENT: Sharon Reed tolerated the session with decreased pain. She demonstrated difficulty with bridging, challenged with clearing hips . The patient will continue to benefit from ongoing skilled physical therapy to progress toward set goals. PLAN FOR NEXT VISIT: Gait and steps next session SUBJECTIVE: Patient reports that she is suppose to get a brace for her knee. Patient reports difficulty getting out of chairs. Pain: Pain Pain Level: 4 Pain Location: Knee - Left Description: Tightness Frequency: Continuous Pain Level 2: 3 Pain Location 2: Back Description 2: Burning Frequency 2: Continuous Post Treatment Pain Post Treatment Pain Level: (2-3/10 in back and L knee) OBJECTIVE MEASURES WITH LEVEL OF FUNCTION: LE PROM L Knee Extension: 0 Degrees L Knee Flexion: 117 Degrees TREATMENT: Therapeutic Exercise: 1: nu step seat 12, level 3 x 6 minutes for AROM of left knee to decrease stiffness during status update 4: EOB calf stretch with belt 3 x 20 seconds 5: HS stretches 3 x 20 seconds L 6: LAQ , L , 2 #, 10 x 3 seconds, 2 sets 7: seated january with 3 # 10 x 3 8: Left hip ER with orange 10 x 2 9: sit to stand from mat x 10 10: mini squats x 10 11: *Supine trunk rotation x 10to each side 12: * bridging 10 reps Skilled Intervention: Patient was educated in proper exercise technique and purpose for exercises. Reviewed and educated patient on additions/changes for home exercise program as above (*). Skilled judgment was provided in selection of appropriate interventions. Provided written instruction for home exercise program to facilitate proper performance and compliance. Correct performance of therapeutic exercises was facilitated with verbal and visual cuing. Billing Therapeutic Exercise Treatment Minutes: 40 Total Treatment Time Minutes (timed and untimed codes) : 40 Tatum Comer PTA documented in this encounter [facility] 02-11-2022 Note HNO ID: [id number] Author: Tatum Comer PTA Service: ? Author Type: Tool Lapper Hand Type: Progress Notes Filed: 02/11/2022 9:23 AM Note Text: Opened in error. Patient was seeing MD before therapy and is held over at that appointment. Patient requesting to cancel PT appointment due to time constraints. [facility] 02-11-2022 History of Present illness Narrative Sharon is here for follow-up regarding her left knee. We worked her up for infection, loosening of the prosthesis, malalignment. Her implant appeared to be in appropriate position. She does have some varus and valgus instability that is giving her discomfort. I do not think it is significant enough that a revision would be beneficial for her, and I think she is high risk for this. She also has significant spine pathology contributing to her symptoms. She is here to get fitted for custom stability brace which I think can alleviate a significant amount of her symptoms. I placed an order for this. documented in this encounter [facility] 02-11-2022 History of Present illness Narrative Opened in error. Patient was seeing MD before therapy and is held over at that appointment. Patient requesting to cancel PT appointment due to time constraints. documented in this encounter [facility] 02-09-2022 Miscellaneous Notes Patient has been called and scheduled for the MRI and the follow-up Mri was signed by Dr. Finley. Thank you The MRI order will need to be placed in patient chart again as the one she originally had was used and not unlinked for that originall appointment so it is no longer a valid order to schedule from. Please advise when new order is on the active request tab for new MRI scheduling. Dr. Finley prescribed a medication for the patient. Please contact patient to reschedule her MRI. Thank you! Patient could not have MRI completed for her wrist. She is asking if she would be able to have something Rx to calm her nerves so she can have the MRI completed. Please advise. If possible, I will have the ladies at the front desk manager reschedule her MRI appointment. Thank you! Lulú Markham Patient cancelled follow up from MRI that was scheduled on 02/10/[address] Finley. She said she did not ask for the medication to calm her nerves as she was sure that the wrist MRI would not be putting her completely in the tube. However when she was there she found out that she needed to go inside the MRI tube with her entire body and not just her wrist so they sent her home and did not complete that MRI> . She is now asking for medication and to reschedule that MRI and follow up with Dr. Finley. Please advise if she can be given the medication and if so please send to [facility] pharmacy in [place] and call patient to schedule the MRI and follow-up on her cell at [phone] Electronically signed by Krist[facility] at 02/09/2022 11:11 AM EDTdocumented in this encounter [facility] 02-09-2022 Note HNO ID: [id number] Author: Tatum Comer PTA Service: ? Author Type: Tool Lapper Hand Type: Progress Notes Filed: 02/09/2022 7:12 PM Note Text: Episode Visit Count: 15 Therapist That Will Oversee The Plan Of Care: Jade Melgoza Start of Care Date: 11/19/21 Onset Date: 02/19/21 Plan of Care Certification Date: 02/02/22 Next Certification Due Date: 03/04/22 REHABILITATION AND SPORTS THERAPY PHYSICAL THERAPY TREATMENT NOTE ASSESSMENT: Sharon Reed tolerated the session with decreased pain. She demonstrated difficulty with maintaining proper position with resisted ER exercise. Patient presents with mild discomfort with resisted LAQ's and march . The patient will continue to benefit from ongoing skilled physical therapy to progress toward set goals. PLAN FOR NEXT VISIT: L knee AROM, back pain, tolerance to activity SUBJECTIVE: Patient Reason for Visit: Patient reports My knee feels real stiff today. It's been like that for a couple of days. Pain: Pain Pain Level: 4 Pain Location: Knee - Left Description: Stiffness Pain Level 2: 4 Pain Location 2: Back Description 2: Burning Frequency 2: Continuous Post Treatment Pain Post Treatment Pain Level: Better Post Treatment Pain Location: Knee - Left;Back OBJECTIVE MEASURES WITH LEVEL OF FUNCTION: Patient ambulates with Rolator with decreased step lengths and decreased stance on left lower extremity TREATMENT: Therapeutic Exercise: 1: nu step seat 12, level 3 x 5 minutes for AROM of left knee to decrease stiffness 4: EOB calf stretch with belt 3 x 20 seconds 5: HS stretches 3 x 20 seconds B 6: LAQ , L , 2 #, 10 x 3 seconds 7: seated january with 3 # 10 x 2 8: *rows , blue ,seated 10 x 3 9: *pulldowns orange 10 reps wiht5 second holld 10: pullups with orange x 10 11: Horizontal abduction with orange x 10 12: B ER with orange 10 x 3 13: * Issued red theraband for HEP Skilled Intervention: Patient was educated in proper exercise technique and purpose for exercises. Reviewed and educated patient on additions/changes for home exercise program as above (*). Skilled judgment was provided in selection of appropriate interventions. Provided written instruction for home exercise program to facilitate proper performance and compliance. Correct performance of therapeutic exercises was facilitated with verbal and visual cuing. Billing Therapeutic Exercise Treatment Minutes: 40 Total Treatment Time Minutes (timed and untimed codes) : 41 Tatum Comer [facility] 02-05-2022 Note HNO ID: [id number] Author: RT Justin(R) Service: Radiology Author Type: Technologist Type: Progress Notes Filed: 02/05/2022 8:12 AM Note Text: Radiology Service Progress Note PATIENT NAME: Sharon Reed DATE OF SERVICE: February 05, 2022 TIME: 8:04 AM PATIENT IDENTITY VERIFICATION COMPLETED USING TWO (2) IDENTIFIERS: Name and Date of confirmed by patient verbally and Name and Date of confirmed by identification band. FALL SCREENING: Has the patient had 2 falls in the last year or 1 fall with injury or currently using an Ambulatory Assistive Device (Walker, Cane, Wheelchair, Crutches, etc.)? Yes, Patient High Risk for Falls What interventions were put in place to prevent falls during this visit? Non-Skid Socks Used, Yellow Falls Risk Wristband Applied and Instructed Patient to Remain Seated (Not on Exam Table) Until Exam PATIENT GENDER DATA: Female. status: : No status: NO. PATIENT RELEVANT IMPLANT DATA REVIEWED: Yes RADIOLOGY DEPARTMENT: MR; Exam(s) Completed: Upper MSK: Wrist, left PERIPHERAL IV DATA: Not applicable SIGNED BY: DEANNE Watkins February 05, 2022 8:04 AM RADIOLOGY SERVICE PROGRESS NOTE DATE OF SERVICE: February 05, 2022 TIME OF SERVICE: 810 EVENT: EXAM/PROCEDURE NOT COMPLETED - Patient became claustrophobic, reaction was: Severe. ADDITIONAL EVENT DETAILS: Patient is extremely claustrophobic, unable to start exam. Advised pt to call doctor and ask for meds to complete MRI. SIGNATURE: RT Justin(R) PATIENT NAME: Sharon Reed DATE: February 05, 2022 TIME: 8:09 AM PAGER/CONTACT #: [facility] 02-05-2022 History of Present illness Narrative Radiology Service Progress Note PATIENT NAME: Sharon Reed DATE OF SERVICE: February 05, 2022 TIME: 8:04 AM PATIENT IDENTITY VERIFICATION COMPLETED USING TWO (2) IDENTIFIERS: Name and Date of confirmed by patient verbally and Name and Date of confirmed by identification band. FALL SCREENING: Has the patient had 2 falls in the last year or 1 fall with injury or currently using an Ambulatory Assistive Device (Walker, Cane, Wheelchair, Crutches, etc.)? Yes, Patient High Risk for Falls What interventions were put in place to prevent falls during this visit? Non-Skid Socks Used, Yellow Falls Risk Wristband Applied and Instructed Patient to Remain Seated (Not on Exam Table) Until Exam PATIENT GENDER DATA: Female. status: : No status: NO. PATIENT RELEVANT IMPLANT DATA REVIEWED: Yes RADIOLOGY DEPARTMENT: MR; Exam(s) Completed: Upper MSK: Wrist, left PERIPHERAL IV DATA: Not applicable SIGNED BY: DEANNE Watkins February 05, 2022 8:04 AM RADIOLOGY SERVICE PROGRESS NOTE DATE OF SERVICE: February 05, 2022 TIME OF SERVICE: 810 EVENT: EXAM/PROCEDURE NOT COMPLETED - Patient became claustrophobic, reaction was: Severe. ADDITIONAL EVENT DETAILS: Patient is extremely claustrophobic, unable to start exam. Advised pt to call doctor and ask for meds to complete MRI. SIGNATURE: RT Justin(Sidney) PATIENT NAME: Sharon Reed DATE: February 05, 2022 TIME: 8:09 AM PAGER/CONTACT #: documented in this encounter [facility] 02-02-2022 Note HNO ID: [id number] Author: Jade Melgoza PT, DPT Service: ? Author Type: Physical Therapist Type: Progress Notes Filed: 02/02/2022 11:15 AM Note Text: Episode Visit Count: 14 Therapist That Will Oversee The Plan Of Care: Jade Melgoza Start of Care Date: 11/19/21 Onset Date: 02/19/21 Plan of Care Certification Date: 02/02/22 Next Certification Due Date: 03/04/22 Patient Identified by Name and Date of : Yes REHABILITATION AND SPORTS THERAPY PHYSICAL THERAPY PROGRESS REPORT PLAN OF CARE UPDATE: Assessment: Sharon Reed demonstrates no improvement in tug and 30 seconds sit to stand tests secondary to new more tenderness in left knee from fall this past weekend. She hasprogressed toward goals. Patient continues to present with impairments in ADL's, balance, flexibility, gait, independence in exercise, joint mobility, overall function, patient reported outcome measures, range of motion, strength , tissue tenderness and functional performance testing indicates increase risk for falls that interfere with sitting;rising from a chair;walking;walking in the house;walking in the community;stair negotiation;dressing;bed mobility;Comments (in and out of car) . Current prognosis is good for acuteness of pain (recent fall in left knee) and was doing well prior to today. She will benefit from continued skilled therapy services to meet the updated goals for this plan of care as noted below. Goals for Episode of Care: updated 02/02/2022 [place] in home exercise program.-MET Patient will decrease pain rating by 2 points to meet minimal clinical important difference for numeric pain rating scale.(9/10 in knee and (5/10) in left side low back.--MET for occasionally Patient will demonstrate increase in left LE strength to 4+/5 during manual muscle testing in order to improve function for basic self-care tasks, leisure / recreation skills, light functional tasks and prior functional tasks.--progressing Perform car mobility and bed mobility without pain.--progressing, but the fall did increase her pain Patient will Improve Timed Up and Go to 8 seconds to demonstrate decreased risk of falling.-not met Normal gait.--progressing Reciprocal stair negotiation. Tolerate standing/sitting for >5 minutes without increased pain.--MET Be able to maintain PPT for 10 seconds x 10 reps and bridge for 60 seconds-met for PPT, 15 seconds for bridge Patient Goals: to decrease back pain Planned Interventions, Frequency, and Duration: 2x/week, 4 weeks Total Number of Visits Planned: 8 Patient to be seen for Therapeutic exercise (20222);Neuromuscular re-education (17366);Manual therapy (20821);Therapeutic activities (33005);Self-correction management (03789);Gait Training (93777);Aquatic PT (35977);Patient/Family/Caregiver Education;Functional training;General Conditioning;Mechanical Traction (96108);E-Stim Attended/TENS (16389);Ultrasound (57508) PLAN FOR NEXT VISIT: L knee AROM, back pain, tolerance to activity SUBJECTIVE: Patient Reason for Visit: Pt was using the walker and walking [place] the beach, pain in her left knee and she fell onto knee. I give up on my back.. Functional Limitations: sitting;rising from a chair;walking;walking in the house;walking in the community;stair negotiation;dressing;bed mobility;Comments (in and out of car) Pain: Pain Pain Level: 4 Pain Location: Knee - Left Description: Stiffness Frequency: Intermittent Pain Level 2: 6 Pain Location 2: Back Description 2: Burning Frequency 2: Continuous PROMIS Scales T-scores: mean of general population = 50. 5 points is clinically meaningfully difference Percentiles provide an indication of how the patient's score ranks in relation to the general population. Higher percentile rankings indicate better function/quality of life. 50th percentile is the average of the general population and indicates half of respondents had a worse score. T-scores: mean of general population = 50. 5 points is clinically meaningfully difference Percentiles provide an indication of how the patient's score ranks in relation to the general population. Higher percentile rankings indicate better function/quality of life. 50th percentile is the average of the general population and indicates half of respondents had a worse score. OBJECTIVE MEASURES WITH LEVEL OF FUNCTION: Knee Observations L Knee Palpation Tenderness: (distal lateral knee pain) LE AROM L Knee Extension: -4 Degrees L Knee Flexion: 114 Degrees Functional Performance Test Results 30 Second Chair Stand Test: 7 reps (with hands on knees) 5 Times Sit to Stand Test : 25 sec (with hands on knees) Timed Up and Go (sec): 14.3 sec (without rollator and 17.7 seconds with rollator) TREATMENT: Therapeutic Exercise: 1: nu step seat 12, level 3 x 5 minutes for AROM of left knee to decrease stiffness 2: PPT x 10 hold for 10 seconds 3: brid (more content not included)... [facility] 01-25-2022 Note HNO ID: [id number] Author: Tatum Comer PTA Service: ? Author Type: Tool Lapper Hand Type: Progress Notes Filed: 01/25/2022 12:42 PM Note Text: Episode Visit Count: 13 Therapist That Will Oversee The Plan Of Care: Jade Melgoza Start of Care Date: 11/19/21 Onset Date: 02/19/21 Plan of Care Certification Date: 01/05/22 Next Certification Due Date: 02/02/22 REHABILITATION AND SPORTS THERAPY PHYSICAL THERAPY TREATMENT NOTE ASSESSMENT: Sharon Dao Reed tolerated the session with increased pain. Reduced and modified exercises to seated this session due to complaints of left knee pain. Held standing exercises and gait due to pain levels. The patient will continue to benefit from ongoing skilled physical therapyto progress toward set goals. PLAN FOR NEXT VISIT: Recheck left knee SUBJECTIVE: Patient Reason for Visit: Patient reports, I have been bad all weekend , my back, my hip . I almost didn't make it here. The knee feels like something is moving in there. I feel like my left knee is unsteady, like I am staggering. I am trying to put all my weight on my right side. There is tightness and pain across my shoulders . Pain: Pain Pain Level: 7 Pain Location: Knee - Left Description: Tightness (unsteady) Pain Level 2: (8-9/10) Pain Location 2: Back Post Treatment Pain Post Treatment Pain Level: 10 Post Treatment Pain Location: Knee - Left (back 8/10) OBJECTIVE MEASURES WITH LEVEL OF FUNCTION: Patient ambulates into clinic with Rolator and decreased stance on left lower extremity TREATMENT: Therapeutic Exercise: 1: NuStep, seat 9, arms 9, L5, 5 minutes, 55 spm , abdominal tucking for 10 seconds every 30 seconds 6: seated rows with blue tb 10 x 3 7: Seated pulldowns with orange tband 10 x 3 8: Standing pullups with orange tb x 15 9: B horizontal abduction with orange x 10, 10: B ER with orange 10 x 2 Skilled Intervention: Patient was educated in proper exercise technique and purpose for exercises. Skilled judgment was provided in selection of appropriate interventions. Correct performance of therapeutic exercises was facilitated with verbal and visual cuing. Billing Therapeutic Exercise Treatment Minutes: 29 Total Treatment Time Minutes (timed and untimed codes) : 29 Tatum Comer PTA [facility] 01-21-2022 Note HNO ID: [id number] Author: Tatum Comer PTA Service: ? Author Type: Tool Lapper Hand Type: Progress Notes Filed: 01/21/2022 1:27 PM Note Text: Episode Visit Count: 12 Therapist That Will Oversee The Plan Of Care: Jade Melgoza Start of Care Date: 11/19/21 Onset Date: 02/19/21 Plan of Care Certification Date: 01/05/22 Next Certification Due Date: 02/02/22 REHABILITATION AND SPORTS THERAPY PHYSICAL THERAPY TREATMENT NOTE ASSESSMENT: Sharon Dao Reed tolerated the session with fatigue. She demonstrated difficulty with step ups , L greater than right. Patient utilizes heavy upper extremity support with on steps and requires numerous cues for sequence. The patient will continue to benefit from ongoing skilled physical therapyto progress toward set goals. PLAN FOR NEXT VISIT: continue core and balance training, standing LE strengthening and scapular strengthening SUBJECTIVE: Patient Reason for Visit: Patient reports I am good for a while, then I am right back to the stiffness in my left knee. There is constant burning in the back. Patient went to [facility] over the past weekend. Pain: Pain Pain Level: 5 Pain Location: Knee - Left Description: Stiffness Pain Level 2: (-05/23) Pain Location 2: Back Description 2: Burning Frequency 2: Continuous Post Treatment Pain Post Treatment Pain Level: 3 Post Treatment Pain Location: Knee - Left (10 in back) OBJECTIVE MEASURES WITH LEVEL OF FUNCTION: 600 feet in 4 minutes and 50 seconds TREATMENT: Therapeutic Exercise: 1: NuStep, seat 9, arms 9, L5, 6 minutes, 50 spm , verbal cues for bracing abdominals intermittently 5: standing isometric multifidus with double orange 10 x 2 6: Standing rows with blue tband 15 x 5 seconds 7: Standing pulldowns with green tband 10 x 5 seconds 8: Standing pullups with orange tb x 15 9: R/L Standing scap depression with green x 20 Skilled Intervention: Patient was educated in proper exercise technique and purpose for exercises. Skilled judgment was provided in selection of appropriate interventions. Correct performance of therapeutic exercises was facilitated with verbal and visual cuing. Neuromuscular Re-Education: 1: feet together on foam EO, arms across chest x 1minute No UE support 2: standing march on Airex x 10, no UE support 3: sit to stands x 10 on Airex from chair Skilled Intervention: Skilled judgment used to assess appropriate program for balance and coordination activity. Insured patient safety with use of gait belt Gait Trainin: gait training with rollator 4 laps of gym, cues to stay upright and closer to rollator; able to self correct majority of time or correct with minimal verbal cueing in 4 minutes, 50 seconds 2: 6 step up , R x 3, heavy UE support 3: Gym steps with step to pattern , ascending 4 steps, descending 6 steps x 1 Skilled Intervention: Facilitated proper gait cycle with the use of verbal and visual cues for correction of gait deviations identified in the objective section above. Gait belt utilized during session for safety. Billing Therapeutic Exercise Treatment Minutes: 26 Neuromuscular Re-Education Treatment Minutes: 5 Gait Training Treatment Minutes: 12 Total Treatment Time Minutes (timed and untimed codes) : 43 Tatum Comer [facility] 01-12-2022 Note HNO ID: [id number] Author: Jade Melgoza, PT, DPT Service: ? Author Type: Physical Therapist Type: Progress Notes Filed: 01/12/2022 1:31 PM Note Text: Episode Visit Count: 11 Therapist That Will Oversee The Plan Of Care: Jade Melgoza Start of Care Date: 11/19/21 Onset Date: 02/19/21 Plan of Care Certification Date: 01/05/22 Next Certification Due Date: 02/02/22 Patient Identified by Name and Date of : Yes REHABILITATION AND SPORTS THERAPY PHYSICAL THERAPY TREATMENT NOTE ASSESSMENT: Sharon Reed tolerated the session with fatigue and expected muscle soreness. She demonstrated improvements in use of rollator and standing activity tolerance. The patient will continue to benefit from ongoing skilled physical therapyto progress toward set goals. PLAN FOR NEXT VISIT: continue core and balance training, standing LE strengthening and scapular strengthening SUBJECTIVE: Patient Reason for Visit: Patient states she left her rollator in her grandson's car and issupposed to get it back today. She reports to appointment with no rollator. She states she was very tired following walking to appointment yesterday without AD Pain: Pain Pain Level: 5 Pain Location: Knee - Left Description: Sore;Stiffness Frequency: Intermittent Post Treatment Pain Post Treatment Pain Level: Better Post Treatment Pain Location: Knee - Left OBJECTIVE MEASURES WITH LEVEL OF FUNCTION: Posture / Alignment Posture: Forward head;Rounded shoulders;Increased thoracic kyphosis Gait Gait: Modified Independent Gait Device: Rollator Gait Deviations: General Deviations General Deviations/Observations: Antalgic gait;Soledad decreased;Flexed trunk posture;Improper distancing from assistive device;Step length decreased TREATMENT: Therapeutic Exercise: 1: NuStep, seat 9, arms 9, L5, 8 minutes, 35 spm 2: standing marches at clay bar x1 minute 3: standing hip abduction 1x10 ea 4: standing hip extension 1x10 each 5: standing multipfidus press outs with pink theraband 1x15 each 6: multifidus marches x20 ea Skilled Intervention: Patient was educated in proper exercise technique and purpose for exercises. Correct performance of therapeutic exercises was facilitated with verbal, visual and tactile cuing. Education regarding posture correction. Neuromuscular Re-Education: 1: feet together on foam EO x 1minute no Ue support 2: semi tandem on foam x1 minute EO no UE support 3: sit to stands x 8 on foam 4: step taps from foam on 6 step [id number] UUE support Skilled Intervention: Skilled judgment used to assess appropriate program for balance and coordination activity. Insured patient safety with use of gait belt and CGA Gait Trainin: gait training with rollator 3 laps of gym cues to stay upright and closer to rollator; able to self correct majority of time or correct with minimal verbal cueing Skilled Intervention: Patient was provided supervision during pre-gait/gait training to prevent falls and insure safety. Gait belt utilized during session for safety. Skilled judgment used to assess proper use of assistive device. Billing: Total time/Length of visit 40 minutes Therapeutic Exercise (31852): 1:1 time: 25 minutes (2 units 23-37 min) Neuromuscular Re-education (53784): 1:1 time:10 (15) minutes (1 unit: 8-22 mins) Gait Training (34669): 1:1 time: 5 minutes (no charge; roll into neuro re-ed) Total time / Length of visit: 40 minute KARINA Ragland Supervising therapist was present and guided the care of the patient for the entire session on this date. All documentation was reviewed and agreed upon. Jade Melgoza, PT, DPT [facility] 01-11-2022 Note HNO ID: [id number] Author: Carolina Gay MD Service: ? Author Type: Physician Type: Progress Notes Filed: 01/13/2022 5:24 PM Note Text: [facility] Initial Consult ASSESSMENT and PLAN: Consultation requested by Daija Alcocer PA-C for an opinion regarding Sharon Reed. My final recommendations will be communicated back to the referring provider by way of shared medical record. Sharon Reed is a 76 year old female with a PMH of chronic low back pain, HTN, GERD, Chronic Constipation, Dyslipidemia, Urinary frequency, Nocturia, glaucoma, trigger finger, and BMI 41 who is here to improve chronic pain and weight with lifestyle and integrative medicine. Diagnoses and all orders for this visit: Chronic low back pain with left-sided sciatica, unspecified back pain laterality - CONSULT TO INTEGRATIVE MEDICINE - CONSULT TO [facility]; Future - CONSULT FOR ACUPUNCTURE; Future Patient is currently living with daughter because of all her medical issues, and attending an adult day care. I have requested she make a follow-up appointment in person or virtual and have a family member attend so that we can discuss a plan moving forward. F/U: 1 month SUBJECTIVE: Sharon Reed is a 76 year old female with a pertinent PMH as listed below is a new patient who presents for a lifestyle consult. CC: back pain HPI: Had a fall last February, right side was cushioned by grandson, but the left side hit the concrete. She has been having trouble every since, requiring surgery on left wrist and is waiting on another, and she has also experienced some knee pain ( s/p TKA) from fall. Pain is bothering her everyday and worse at night. It is stopping her from her regular activities. She Last injection didn't help, and she didn't remember how she got home. She has decreased her junk food, and has lost 10 lbs since She walks with a rotablator but this is in her grandsons car. DIET OVERVIEW: Following a specific diet?eats at the center, and they don't give you any salt She eats pretty healthy/. She just moved in with daughter (tempoaray for now, but maybe permanent. Not sure yet. Wants to go back home if she can get pain under control. # takeout/fast food/ or restaurant meals/week: not resturants From scratch or prepared foods/frozen entrees? prepared Who cooks at home? Daughter Food allergies or sensitivities: None DIETARY RECALL: Not Completed MEAL TIMING: Not Complete PHYSICAL ACTIVITY: [facility] where they use a foot pedal and resistance bands for gentle exercise. SLEEP: Sleep quality in the past month: not to good. Difficulty falling asleep (awake 30+ mins, staying asleep): Back pain, wrist, and knee pain keep her awake. She is using the pads recommended by PT which seems to be helping. Average hours sleep time per night: Ukknown PAP therapy: No STRESS: Deferred HOME: Spouse: None Children: Yes, currently living with daughter. WORK/SCHOOL: No, attending adult daycare SUPPLEMENTS: Deferred REVIEW OF SYSTEMS: Review of Systems Constitutional: Negative for chills, fatigue and fever. Gastrointestinal: Negative for diarrhea and vomiting. Musculoskeletal: Positive for arthralgias, back pain, gait problem, myalgias and neck pain. All other systems reviewed and are negative. PHYSICAL EXAMINATION: BP 156/86 (BP Site: Right Arm, BP Position: Sitting, BP Cuff Size: Large Adult) Pulse 90 Wt 108.2 kg (238 lb 9.6 oz) BMI 41.60 kg/m? Physical Exam Constitutional: Appearance: Normal appearance. She is obese. HENT: Head: Normocephalic and atraumatic. Cardiovascular: Rate and Rhythm: Normal rate. Pulmonary: Effort: Pulmonary effort is normal. Skin: General: Skin is warm and dry. Neurological: General: No focal deficit present. Mental Status: She is alert. Psychiatric: Mood and Affect: Mood normal. Behavior: Behavior normal. Thought Content: Thought content normal. Judgment: Judgment normal. LABS: CMP Latest Ref Rng AND Units 10/15/2009 10/28/2010 06/30/2015 SODIUM 136 - 145 MMOL/L - 140 - SODIUM, ALEJO 136 - 145 mmol/L 146(H) - - SODIUM, ALEJO 136 - 145 mmol/L 146(H) - - POTASSIUM 3.5 - 5.1 MMOL/L - 4.4 - POTASSIUM, ALEJO 3.5 - 5.1 mmol/L 4.0 - - CHLORIDE 98 - 107 MMOL/L - 106 - CHLORIDE, ALEJO 98 - 107 mmol/L 107 - - CO2 23 - 32 MMOL/L - 25 - CO2, ALEJO 21.0 - 32.0 mmol/L 29.0 - - GLUCOSE, ALEJO 70 - 99 mg/dL 83 - - BUN, ALEJO 7 - 18 mg/dL 20(H) - - CREATININE 0.70 - 1.40 mg/dL - - 1.65(H) CREATININE, ALEJO 0.6 - 1.0 mg/dL 1.2(H) - - EGFR-ALL OTHER RACES . - - 31 EGFR- - - - 37 CALCIUM, ALEJO 8.5 - 10.1 mg/dL 9.0 - - No results found for: CHOL, TG, HDL, LDL No components found for: HAB1C, HAB0 No results found for: TSH No results found for: VITD25 Carolina Gay MD January 11, 2022 I s (more content not included)... [facility] 01-07-2022 Note HNO ID: [id number] Author: Tatum Comer PTA Service: ? Author Type: Tool Lapper Hand Type: Progress Notes Filed: 01/07/2022 10:42 AM Note Text: Episode Visit Count: 10 Therapist That Will Oversee The Plan Of Care: Jade Melgoza Start of Care Date: 11/19/21 Onset Date: 02/19/21 Plan of Care Certification Date: 01/05/22 Next Certification Due Date: 02/02/22 Patient Identified by Name and Date of : Yes REHABILITATION AND SPORTS THERAPY PHYSICAL THERAPY TREATMENT NOTE ASSESSMENT: Sharon Reed tolerated the session with expected muscle soreness. Patient requires cues for bracing abdominals with trunk stabilization exercises. Patient exhibits limited tolerance to supine/hooklyine position. The patient will continue to benefit from ongoing skilled physical therapy to progress toward set goals. PLAN FOR NEXT VISIT: Continue core strengthening, scapular strengthening, and LE strengthening SUBJECTIVE: Patient Reason for Visit: Patient reports difficulty with bending, sleeping, and walking. Patient complaints of tightness in left leg , numbness in bilateral hands. Left arm is sore because of getting bolster shot. Pain: Pain Pain Level: 3 Pain Location: Back;Knee - Left;Wrist - Left Description: Sore Frequency: Intermittent Post Treatment Pain Post Treatment Pain Level: 4 OBJECTIVE MEASURES WITH LEVEL OF FUNCTION: sit to stand, no upper extremity assist , 8 in 30 seconds TREATMENT: Therapeutic Exercise: 1: NuStep, seat 9, arms 9, L5, 5 minutes, 35 spm 2: *LAQ 10 x 3 seconds 3: *Hooklying AB with isometric hip adduction 10 x 5 seconds 4: *Hooklying AB with isometric hip abduction with 5 second hold x 10(orange tband) 5: sit to stand 8 reps in 30 seconds 6: Standing rows with green tband 15 x 5 seconds 7: Standing pulldowns with green tband 10 x 5 seconds 8: *Seated january with 2 # 10 x 2 Skilled Intervention: Patient was educated in proper exercise technique and purpose for exercises. Skilled judgment was provided in selection of appropriate interventions. Correct performance of therapeutic exercises was facilitated with verbal and visual cuing. Billing Therapeutic Exercise Treatment Minutes: 41 Total Treatment Time Minutes (timed and untimed codes) : 44 Tatum Comer [facility] 01-05-2022 Note HNO ID: [id number] Author: Jade Melgoza, PT, DPT Service: ? Author Type: Physical Therapist Type: Progress Notes Filed: 01/05/2022 1:29 PM Note Text: Episode Visit Count: 9 Therapist That Will Oversee The Plan Of Care: Jade Melgoza Start of Care Date: 11/19/21 Onset Date: 02/19/21 Plan of Care Certification Date: 01/05/22 Next Certification Due Date: 02/02/22 Patient Identified by Name and Date of : Yes REHABILITATION AND SPORTS THERAPY PHYSICAL THERAPY PROGRESS REPORT PLAN OF CARE UPDATE: Assessment: Sharon Reed demonstrates moderate improvement in rising from a chair, standing, walking, walking in the house, walking in the community, stair negotiation, physical activities and recreational activities. She has met and progressed towards all goals. Patient continues to present with impairments in balance, gait and overall function that interfere with sitting;rising from a chair;walking;walking in the house;walking in the community;stair negotiation;dressing;bed mobility . Current prognosis is Excellent due to: within-session changes. Patient requests to discontinue aquatic therapy due to temperature of the pool. She requests to continue dry land therapy on same schedule. She will benefit from continued skilled therapy services to meet the updated goals for this plan of care as noted below. Goals for Episode of Care: updated 01/04/22 [place] in home exercise program.-MET Patient will decrease pain rating by 2 points to meet minimal clinical important difference for numeric pain rating scale.(9/10 in knee and (5/10) in left side low back.--MET Patient will demonstrate increase in left LE strength to 4+/5 during manual muscle testing in order to improve function for basic self-care tasks, leisure / recreation skills, light functional tasks and prior functional tasks.--progressing Perform stairs and bed mobility without pain.--progressing Patient will Improve Timed Up and Go to 8 seconds to demonstrate decreased risk of falling.-not met Normal gait.--progressing Reciprocal stair negotiation. Tolerate standing/sitting for >5 minutes without increased pain.--MET Be able to maintain PPT for 10 seconds x 10 reps and bridge for 60 seconds-progressing Aquatic Goal: Patient will be independent with aquatic program and transition to a community pool.--(discharged 01/04/22-patient request to discontinue aquatics) Patient Goals: to decrease back pain Patient Goals: to decrease back pain; to get rid of rollator Planned Interventions, Frequency, and Duration: 2x/week, 4 weeks Total Number of Visits Planned: 8 Patient to be seen for Therapeutic exercise (26140);Neuromuscular re-education (32749);Manual therapy (79770);Therapeutic activities (21560);Self-correction management (71444);Gait Training (26481);Aquatic PT (03668);Patient/Family/Caregiver Education;Functional training;General Conditioning;Mechanical Traction (92107);E-Stim Attended/TENS (68002);Ultrasound (73393) PLAN FOR NEXT VISIT: continue core strengthening, scapular strengthening, and LE strengthening, aquatic therapy SUBJECTIVE: Patient Reason for Visit: Patient states she is doing ok today.. Patient Goals: to decrease back pain; to get rid of rollator Functional Limitations: sitting;rising from a chair;walking;walking in the house;walking in the community;stair negotiation;dressing;bed mobility Pain: Pain Pain Level: 4 Pain Location: Knee - Left Description: Sore;Stiffness Post Treatment Pain Post Treatment Pain Level: No Change PROMIS Scales T-scores: mean of general population = 50. 5 points is clinically meaningfully difference Percentiles provide an indication of how the patient's score ranks in relation to the general population. Higher percentile rankings indicate better function/quality of life. 50th percentile is the average of the general population and indicates half of respondents had a worse score. T-scores: mean of general population = 50. 5 points is clinically meaningfully difference Percentiles provide an indication of how the patient's score ranks in relation to the general population. Higher percentile rankings indicate better function/quality of life. 50th percentile is the average of the general population and indicates half of respondents had a worse score. OBJECTIVE MEASURES WITH LEVEL OF FUNCTION: Posture / Alignment Posture: Forward head;Rounded shoulders;Increased thoracic kyphosis LE Strength R Hip Extension: 3/5 R Hip Flexion (L2): 4+/5 R Hip ABduction: 4/5 R Knee Extension (L3): 4+/5 R Knee Flexion: 4/5 L Hip Extension: 3/5 L Hip Flexion (L2): 4/5 L Hip ABduction: 3-/5 L Knee Extension (L3): 4-/5 (limited due to pain) L Knee Flexion: 3+/5 (limited due to pain) L Ankle Dorsiflexion (L4): 3+/5 Functional Strength Functional Strength: Rolling Rolling: markedly less difficulty and patient report less painful Gai (more content not included)... [facility] 12-31-2021 Note HNO ID: [id number] Author: Adela Wayne PTA Service: ? Author Type: Tool Lapper Hand Type: Progress Notes Filed: 12/31/2021 2:00 PM Note Text: Open in error [facility] 12-24-2021 Note HNO ID: [id number] Author: Jade Melgoza PT, DPT Service: ? Author Type: Physical Therapist Type: Progress Notes Filed: 12/24/2021 2:13 PM Note Text: Episode Visit Count: 8 Therapist That Will Oversee The Plan Of Care: Jade Melgoza Start of Care Date: 11/19/21 Onset Date: 02/19/21 Plan of Care Certification Date: 11/19/21 Next Certification Due Date: 02/17/22 Patient Identified by Name and Date of : Yes REHABILITATION AND SPORTS THERAPY PHYSICAL THERAPY TREATMENT NOTE ASSESSMENT: Sharon Reed tolerated the session with no issues. She demonstrated improvements in gait mechanics, gait speed, LE strength and pain levels. The patient will continue to benefit from ongoing skilled physical therapy to progress toward set goals. PLAN FOR NEXT VISIT: continue core strengthening, scapular strengthening, and LE strengthening, aquatic therapy SUBJECTIVE: Patient Reason for Visit: PAtient says the weather is having an effect on her but she is moving around pretty well. Patient denies any falls since last session Pain: Pain Pain Level: 3 Pain Location: Knee - Left Description: Stiffness Frequency: Continuous Pain Level 2: 5 Pain Location 2: Back Description 2: Stiffness Frequency 2: Continuous Post Treatment Pain Post Treatment Pain Level: 2 Post Treatment Pain Location: Leg - Left Post Treatment Pain Description: Stiffness Post Treatment Pain Score 2: 0/10 (back no longer painful/stiff) OBJECTIVE MEASURES WITH LEVEL OF FUNCTION: Posture / Alignment Posture: Forward head;Rounded shoulders Gait Gait: Modified Independent Gait Device: Rollator Gait Deviations: General Deviations General Deviations/Observations: Antalgic gait;Soledad decreased;Flexed trunk posture;Improper distancing from assistive device;Step length decreased Gait improved by end of session; increased speed, increased step length, upright posture without cueing TREATMENT: Therapeutic Exercise: 1: nu step level 3 10 minutes 2: theraball roll outs; 10x forward, 5x eachside 3: seated side reaches for cones for core stabalization; 10 times each side 4: seated trunk rotations; diagonal cone taps posterior x10 each side 5: seated leg extension pushing therapist on theraball 2x10 each leg 6: rows wtih green theraband and therpist resist; 6x5 second hold Skilled Intervention: Patient was educated in proper exercise technique and purpose for exercises. Skilled judgment was provided in selection of appropriate interventions. Correct performance of therapeutic exercises was facilitated with verbal, visual and tactile cuing. Billing: Total time/Length of visit 40 minutes Therapeutic Exercise (22563): 1:1 time: 40 minutes (3 units: 38-52 mins) Total time / Length of visit: 40 minute KARINA Ragland Supervising therapist was present and guided the care of the patient for the entire session on this date. All documentation was reviewed and agreed upon. Jade Melgoza, PT, DPT [facility] 12-21-2021 Note HNO ID: [id number] Author: Adela Wayne PTA Service: ? Author Type: Tool Lapper Hand Type: Progress Notes Filed: 12/21/2021 2:24 PM Note Text: Episode Visit Count: 7 Therapist That Will Oversee The Plan Of Care: Jade Melgoza Start of Care Date: 11/19/21 Onset Date: 02/19/21 Plan of Care Certification Date: 11/19/21 Next Certification Due Date: 02/17/22 Patient Identified by Name and Date of : Yes REHABILITATION AND SPORTS THERAPY PHYSICAL THERAPY TREATMENT NOTE ASSESSMENT: Sharon Reed demonstrated improved posture. Mid low back pain after postural strength with paddle and hip extension. Pain decreased after hamstring stretching and lumbar mobility. Less hand support pool wall for balance with dynamic exercises. Guarded with all activity. PLAN FOR NEXT VISIT: continue postural strength, hip mobility and balance SUBJECTIVE: Patient Reason for Visit: Pt reports left leg pain , no change. Working on posture. Not using Rolator today, left in van. Pain: Pain Pain Level: 3 Pain Location: Leg - Left Description: Stiffness Frequency: Continuous Post Treatment Pain Post Treatment Pain Level: 1 Post Treatment Pain Location: Leg - Left Post Treatment Pain Description: Aching OBJECTIVE MEASURES WITH LEVEL OF FUNCTION: Patient ambulates to/from locker room without Rolator Patient enters/exited the pool via stairs, CGA Gait belt Patient accompanied by clinician in water throughout session, CGA/ SBA unless otherwise noted. TREATMENT: Aquatic Therapy: Footwear on pool deck pre-treatment: Yes, patient wearing appropriate footwear and appeared safe on pool deck Footwear on pool deck post-treatment: Yes, patient wearing appropriate footwear and appeared safe on pool deck Aquatic Therapy (11751): 1 1: see note below WATER DEPTH 3'6 - 3'9 - Giant dynamic steps forward/ retro, no hand support on pool wall x 2 length each - Giant dynamic side step right/left, no hand support x 2 length -dynamic january x 2, intermittent hand support pool wall WATER DEPTH 3'9 UE (paddle level 5 , added this date) -R/L alternating shoulder flexion/extension x 10 -B shoulder adduction/abduction x 10 -Bshoulder horizontal adduction/abduction x 10 -R/L rows x 10 WATER DEPTH 3'9 -R/L hamstring stretch 2 x 30 seconds each, back to pool wall -R/L hamstring curls x 10 each, 2 hand support at pool wall -R/L LAQ's x10 each with back to pool wall, cues for ankle DF on end range extension -SL heel raise x3each, 2 support at pool wall (unable, back pain) -CW/CCW 'hoola hoop' with 2 hands support at pool wall, 1 x 10 each direction -R/L hip ext x 10 each, 2 hand support -R/L SLR abd/add, x 10 each side, 2 hand support at pool wall -Lumbar flexion stretch WATER DEPTH 3'6 -dynamic balance directional changes: side step R/L, forward /retro , CGA decreased balance Skilled Intervention: Patient was educated in proper exercise technique and purpose for exercises. Skilled judgment was provided in selection of appropriate interventions. Skilled judgment used to assess appropriate program for balance and coordination activity. Patient education: Proper hydration following aquatic session Expectation of fatigue/discomfort with exercise progressions and normal response Goal to gradually decrease water depth to tolerance in preparation for transition to land based physical therapy and daily living Advised to rest as needed upon exiting pool prior to walking to locker room to re-acclimate to full weight bearing status Patient with good understanding. Billing Aquatic Therapy Treatment Minutes: 38 Total Treatment Time Minutes (timed and untimed codes) : 40 Adela Wayne PTA [facility] 12-14-2021 Note HNO ID: [id number] Author: Adela Wayne PTA Service: ? Author Type: Tool Lapper Hand Type: Progress Notes Filed: 12/14/2021 2:51 PM Note Text: Episode Visit Count: 6 Therapist That Will Oversee The Plan Of Care: Jade Melgoza Start of Care Date: 11/19/21 Onset Date: 02/19/21 Plan of Care Certification Date: 11/19/21 Next Certification Due Date: 02/17/22 REHABILITATION AND SPORTS THERAPY PHYSICAL THERAPY TREATMENT NOTE ASSESSMENT: Sharon Reed demonstrated lumbar pain with rotation, back sore in upright posture. Increased left leg strength performing hip extension vs toe touch last visit. Guarded with directional changes, decreased step length. SBA/CGA with activity. Increased hand support for balance. Left knee and hip felt better after therapy. PLAN FOR NEXT VISIT: add rows, continue left LE strength, balance SUBJECTIVE: Patient Reason for Visit: Patient reports left radicular symptoms though leg getting stronger. Pain: Pain Pain Level: 3 Pain Location: Leg - Left Description: Stiffness Frequency: Continuous Post Treatment Pain Post Treatment Pain Level: 2 Post Treatment Pain Location: Leg - Left Post Treatment Pain Description: Aching OBJECTIVE MEASURES WITH LEVEL OF FUNCTION: Patient ambulates to/from locker room with Rolator Patient enters/exited the pool via stairs, CGA Gait belt Patient accompanied by clinician in water throughout session, CGA/ SBA unless otherwise noted. TREATMENT: Aquatic Therapy: Footwear on pool deck pre-treatment: Yes, patient wearing appropriate footwear and appeared safe on pool deck Footwear on pool deck post-treatment: Yes, patient wearing appropriate footwear and appeared safe on pool deck Aquatic Therapy ([id number]): 1 1: see note below WATER DEPTH 3'6 - 3'9 - Giant dynamic steps forward/ retro,intermittent hand support on pool wall x 2 length each - Giant dynamic side step right/left, Intermittent hand support x 2 length -dynamic march x 2, hand support pool wall WATER DEPTH 3'9 -R/L hamstring stretch 2 x 30 seconds each, back to pool wall -R/L hamstring curls x 15 each, 2 hand support at pool wall -R/L LAQ's x15 each with back to pool wall, cues for ankle DF on end range extension -Bilateral heel raise x10 each, 2 support at pool wall -Bilateral toe raises x10 each, 2 support at pool wall -CW/CCW 'hoola hoop' with 2 hands support at pool wall, 1 x 10 each direction -R/L hip ext x 10 each -R/L SLR abd/add, x 10 each side, 1 hand support at pool wall -Double leg squats with ab bracing on standing x15 , 2 hand support at pool wall -static stand, kickboard lumbar rotation R/L x 10, CGA -static stand, kickboard push downs x 10 CGA WATER DEPTH 4'0 -3'9 (holding noodle) -dynamic balance directional changes: side step R/L, forward /retro , CGA decreased balance Skilled Intervention: Patient was educated in proper exercise technique and purpose for exercises. Skilled judgment was provided in selection of appropriate interventions. Skilled judgment used to assess appropriate program for balance and coordination activity. Patient education: Proper hydration following aquatic session Expectation of fatigue/discomfort with exercise progressions and normal response Goal to gradually decrease water depth to tolerance in preparation for transition to land based physical therapy and daily living Advised to rest as needed upon exiting pool prior to walking to locker room to re-acclimate to full weight bearing status Patient with good understanding. Billing Aquatic Therapy Treatment Minutes: 38 Total Treatment Time Minutes (timed and untimed codes) : 40 Adela Wayne [facility] 12-10-2021 Note HNO ID: [id number] Author: Arianne Sorensen OT/L Service: ? Author Type: Occupational Therapist Type: Progress Notes Filed: 12/10/2021 2:49 PM Note Text: Episode Visit Count: 3 Therapist That Will Oversee The Plan Of Care: Jose Maria Acuña Start of Care Date: 11/12/21 Onset Date: 02/19/21 Plan of Care Certification Date: 11/12/21 Next Certification Due Date: 01/14/22 Patient Identified by Name and Date of : Yes REHABILITATION AND SPORTS THERAPY OCCUPATIONAL THERAPY TREATMENT NOTE ASSESSMENT: Sharon Reed tolerated the session with expected muscle soreness. She demonstrated difficulty with wrist pain. The patient will continue to benefit from ongoing skilled occupational therapy to progress toward set goals. PLAN FOR NEXT VISIT: SUBJECTIVE: left hand pain Pt reporting she still has wrist pain has good days with it and bad days with it Pain: OBJECTIVE MEASURES WITH LEVEL OF FUNCTION: TREATMENT: Therapeutic Exercise: 1: AROM while in fluido at 106 deg x10 minutes 2: AROM `wrist all planes after heat 3: educated pt in ionto pt to purchase electrodes 4: manual techniques with hawk tool and massager Skilled Intervention: Patient was educated in proper exercise technique and purpose for exercises. Skilled judgment was provided in selection of appropriate interventions. Billing Therapeutic Exercise Treatment Minutes: 40 Ariannechristopher Sorensen /[facility] 12-10-2021 Note HNO ID: [id number] Author: Lenard Allison, ATUL Service: ? Author Type: Physical Therapist Type: Progress Notes Filed: 12/10/2021 3:51 PM Note Text: Episode Visit Count: 5 Therapist That Will Oversee The Plan Of Care: Jade Melgoza Start of Care Date: 11/19/21 Onset Date: 02/19/21 Plan of Care Certification Date: 11/19/21 Next Certification Due Date: 02/17/22 Patient Identified by Name and Date of : Yes REHABILITATION AND SPORTS THERAPY PHYSICAL THERAPY TREATMENT NOTE ASSESSMENT: Sharon Reed tolerated the session with decreased activity tolerance due to back and muscle pain in legs, fatigue, increased pain and expected muscle soreness. She demonstrated improvements in observed knee range of motion, especially extension, after applied long arc quads and nu step. Attempted lumbar spinal repeated movements with flexion and extension to determine pattern of centralization vs peripheralization, however patient unable to state change in pain. The patient will continue to benefit from ongoing skilled physical therapyto progress toward set goals. PLAN FOR NEXT VISIT: continue left knee ROM, balnace, strength SUBJECTIVE: Patient reports ongoing increase in pain symptoms today in bilateral knees, low back and down backs of her legs prior to today's session (Left worse that Right). States her knee is very stiff today and she has a hard time moving it after sitting for long periods of time throughout the day. Pain: Pain Pain Level: 8 Pain Location: Knee - Left Description: Stiffness Pain Level 2: 6 Pain Location 2: Back Post Treatment Pain Post Treatment Pain Level: 4 Post Treatment Pain Location: Knee - Left OBJECTIVE MEASURES WITH LEVEL OF FUNCTION: TREATMENT: Therapeutic Exercise: 1: Nustep seat 11 UE/LE L3 x 8 minutes 2: *LAQ R/L x 10 3: *seated march R/L x 10 4: *seated B toe lift 2 sec hold x 10 7: Seated lumbar SB flexion x15 (inconclusive on better or worse) 8: Standing lumbar extensions (inconclusive on if better or worse) 9: Seated heel raises x20 10: Gait training w/ rolator 2 laps in gym 11: Seated knee flexion w/ manual overpressure Skilled Intervention: Patient was educated in proper exercise technique and purpose for exercises. Reviewed and educated patient on additions/changes for home exercise program as above (*). Skilled judgment was provided in selection of appropriate interventions. Correct performance of therapeutic exercises was facilitated with verbal cuing. Billing Therapeutic Exercise Treatment Minutes: 38 Total Treatment Time Minutes (timed and untimed codes) : 38 Lenard Pringleuer, ATUL [facility] 12-07-2021 Note HNO ID: [id number] Author: Adela Wayne PTA Service: ? Author Type: Tool Lapper Hand Type: Progress Notes Filed: 12/07/2021 3:34 PM Note Text: Episode Visit Count: 4 Therapist That Will Oversee The Plan Of Care: Jade Melgoza Start of Care Date: 11/19/21 Onset Date: 02/19/21 Plan of Care Certification Date: 11/19/21 Next Certification Due Date: 02/17/22 Patient Identified by Name and Date of : Yes REHABILITATION AND SPORTS THERAPY PHYSICAL THERAPY TREATMENT NOTE ASSESSMENT: Sharon Reed demonstrated improved overall endurance with exercises, though left leg fatigue requires rest break. Noted improved posture with cuing. Less guarded ambulating in water vs last visit. Decreased balance, step length ambulating without hand support. Left knee and hip felt better after therapy. PLAN FOR NEXT VISIT: continue left knee ROM, balnace, strength SUBJECTIVE: Patient Reason for Visit: Patient reports uses new Rolator for long distances. Left knee and hip tight today. Pain: Pain Pain Level: 4 Pain Location: Knee - Left;Hip - Left Description: Tightness Frequency: Continuous Post Treatment Pain Post Treatment Pain Level: 3 Post Treatment Pain Location: Knee - Left;Hip - Left Post Treatment Pain Description: Aching OBJECTIVE MEASURES WITH LEVEL OF FUNCTION: Patient ambulates to/from locker room with Rolator Patient enters/exited the pool via stairs, CGA Gait belt Patient accompanied by clinician in water throughout session, CGA/ SBA unless otherwise noted. TREATMENT: Aquatic Therapy: Footwear on pool deck pre-treatment: Yes, patient wearing appropriate footwear and appeared safe on pool deck Footwear on pool deck post-treatment: Yes, patient wearing appropriate footwear and appeared safe on pool deck Aquatic Therapy (35441): 1 1: see note below WATER DEPTH 3'6 - 3'9 - Giant dynamic steps forward/ retro,intermittent hand support on pool wall x 2 length each - Giant dynamic side step right/left, Intermittent hand support x 2 length WATER DEPTH 3'9 -R/L hamstring stretch 2 x 30 seconds each, back to pool wall -R/L hamstring curls x 15 each, 2 hand support at pool wall -R/L LAQ's x15 each with back to pool wall, cues for ankle DF on end range extension -Bilateral heel raise x10 each, 2 support at pool wall -Bilateral toe raises x10 each, 2 support at pool wall -CW/CCW 'hoola hoop' with 2 hands support at pool wall, 1 x 10 each direction -R/L SL retro toe tap x 10 each -R/L SLR flex/extend, x 10 each side, 1 hand support at pool wall -Double leg squats with ab bracing on standing x10 , 2 hand support at pool wall -static stand, holding noodle lumbar rotation R/L x 10, CGA WATER DEPTH 3'6 -3'9 (holding noodle) -dynamic balance directional changes: side step R/L, forward /retro , SBA decreased balance Skilled Intervention: Patient was educated in proper exercise technique and purpose for exercises. Skilled judgment was provided in selection of appropriate interventions. Skilled judgment used to assess appropriate program for balance and coordination activity. Patient education: Proper hydration following aquatic session Expectation of fatigue/discomfort with exercise progressions and normal response Goal to gradually decrease water depth to tolerance in preparation for transition to land based physical therapy and daily living Advised to rest as needed upon exiting pool prior to walking to locker room to re-acclimate to full weight bearing status Patient with good understanding. Billing Aquatic Therapy Treatment Minutes: 38 Total Treatment Time Minutes (timed and untimed codes) : 40 Adela Wayne [facility] 12-01-2021 Note HNO ID: [id number] Author: Derek Calloway, CT Service: Nuclear Medicine Author Type: Technologist Type: Progress Notes Filed: 12/01/2021 1:33 PM Note Text: RADIOLOGY SERVICE PROGRESS NOTE SERVICE DATE: 12/01/2021 SERVICE TIME: 1:32 PM PATIENT IDENTITY VERIFICATION COMPLETED USING TWO (2) STANDARD IDENTIFIERS: Name and Date of confirmed by patient verbally and Name and Date of confirmed by identification band FALL SCREENING: Has the patient had 2 falls in the last year or 1 fall with injury or currently using an Ambulatory Assistive Device (Walker, Cane, Wheelchair, Crutches, etc.)? Yes, Patient High Risk for Falls What interventions were put in place to prevent falls during this visit? Instructed Patient to Call for Help if Needed, Offered Assistance with Transfers/Clothing, Instructed Patient to Remain Seated (Not on Exam Table) Until Exam and Increased Observations by Caregivers PATIENT GENDER DATA: .female : No ALLERGIES: Reviewed and unchanged MEDICATIONS REVIEWED: Not applicable PATIENT RELEVANT IMPLANT DATA REVIEWED: Not Applicable CREATININE: Creatinine Date Value Ref Range Status 06/30/2015 1.65 (H) 0.70 - 1.40 mg/dL Final eGFR-All Other Races Date Value Ref Range Status 06/30/2015 31 . Final Comment: eGFR (Estimated GFR) Units of measure: mL/min/1.73 meters squared eGFR is derived from the reexpressed MDRD Study equation using the following parameters: serum creatinine, age, gender and race. The creatinine assay has been calibrated to be traceable to IDMS. An eGFR <60 mL/min/1.73m2 for >3 months is consistent with chronic kidney disease. Refer to KDOQI guidelines for clinical interpretation. In patients with unstable renal function, e.g. those with acute kidney injury, the eGFR may not accurately reflect actual GFR. eGFR- Date Value Ref Range Status 06/30/2015 37 Final P.O.C.T. RESULTS: N/A December 01, [address] PERFORMED: No IV SITE: Ambulatory: NM only - direct IV injection in the Left antecubital site POST EXAM PIV STATUS: Not applicable PROCEDURE TYPE: NM INJECT: bone flow. 21.7 mCi Tc99m MDP. No other medications given.. ADMINISTRATION TIME: 10:59 PATIENT DISCHARGED TO: Ambulatory patient, left NM department area. A Diagnostic radioactive procedure has taken place, with no further precautions necessary other than routine body substance precautions. More information regarding radiation safety can be found using this link: [email or web address] SIGNATURE: GRECIA Brown PATIENT NAME: Sharon Reed DATE: December 01, 2021 TIME: 1:32 PM PAGER/CONTACT #: [facility] 11-26-2021 Note HNO ID: [id number] Author: Arianne Sorensen OT/Maricarmen Service: ? Author Type: Occupational Therapist Type: Progress Notes Filed: 11/26/2021 4:11 PM Note Text: Episode Visit Count: 2 Therapist That Will Oversee The Plan Of Care: Jose Maria Acuña Start of Care Date: 11/12/21 Onset Date: 02/19/21 Plan of Care Certification Date: 11/12/21 Next Certification Due Date: 01/14/22 Patient Identified by Name and Date of : Yes REHABILITATION AND SPORTS THERAPY OCCUPATIONAL THERAPY TREATMENT NOTE ASSESSMENT: Sharon Reed demonstrated difficulty with pain and functional use of hand. The patient will continue to benefit from continued skilled occupational therapy for exercises manual techniques PLAN FOR NEXT VISIT: trial US SUBJECTIVE: left hand pain Still has pain reports compression does help Pain: OBJECTIVE MEASURES WITH LEVEL OF FUNCTION: TREATMENT: Therapeutic Exercise: 1: AROM while in fluido at 106 deg x10 minutes 2: AROM `wrist all planes after heat 3: soft sponge 4: manual techniques with hawk tool and massager 5: ice after treatment Skilled Intervention: Patient was educated in proper exercise technique and purpose for exercises. Arianne Sorensen OT/Maricarmen [facility] 11-26-2021 Note HNO ID: [id number] Author: GRECIA Mckenzie Service: Radiology Author Type: Technologist Type: Progress Notes Filed: 11/26/2021 2:01 PM Note Text: Radiology Service Progress Note PATIENT NAME: Sharon Reed DATE OF SERVICE: November 26, 2021 TIME: 2:01 PM PATIENT IDENTITY VERIFICATION COMPLETED USING TWO (2) IDENTIFIERS: Name and Date of confirmed by patient verbally. FALL SCREENING: Has the patient had 2 falls in the last year or 1 fall with injury or currently using an Ambulatory Assistive Device (Walker, Cane, Wheelchair, Crutches, etc.)? Yes, Patient High Risk for Falls What interventions were put in place to prevent falls during this visit? Offered Assistance with Transfers/Clothing and Increased Observations by Caregivers PATIENT GENDER DATA: Female. status: : No status: NO. PATIENT RELEVANT IMPLANT DATA REVIEWED: Not Applicable RADIOLOGY DEPARTMENT: General X-ray: Exam(s) Completed: Pelvis X-Ray: Pelvis with Hip Left and Wt. Bearing PERIPHERAL IV DATA: Not applicable SIGNED BY: GRECIA Mckenzie November 26, 2021 2:01 PM [facility] 11-25-2021 Note HNO ID: [id number] Author: Adela Wayne PTA Service: ? Author Type: Tool Lapper Hand Type: Progress Notes Filed: 11/25/2021 11:26 AM Note Text: Episode Visit Count: 3 Therapist That Will Oversee The Plan Of Care: Jade Melgoza Start of Care Date: 11/19/21 Onset Date: 02/19/21 Plan of Care Certification Date: 11/19/21 Next Certification Due Date: 02/17/22 Patient Identified by Name and Date of : Yes REHABILITATION AND SPORTS THERAPY PHYSICAL THERAPY TREATMENT NOTE ASSESSMENT: Sharon Reed demonstrated left knee stiffness with flexion. Fatigue with strengthening and sit to stand. Tightness in bilateral gastroc with stretches, unable to hold 30 sec. Improved left knee mobility after exercises. Educated in using Rolator, locking, ambulating with heel strike and upright posture. Left hip weakness stepping up 6 step. PLAN FOR NEXT VISIT: continue left knee ROM, left hip strength, core stabitliy, step ups SUBJECTIVE: Patient Reason for Visit: Patient reports aquatic therapy was good, no increased pain. Got new Rolator. Pain: Pain Pain Level: 4 Pain Location: Knee - Left Description: Tightness Frequency: Continuous Pain Level 2: 0 Pain Location 2: Back Post Treatment Pain Post Treatment Pain Level: 2 Post Treatment Pain Location: Knee - Left Post Treatment Pain Description: Aching OBJECTIVE MEASURES WITH LEVEL OF FUNCTION: Enters with Rolator Left hip weakness LE weakness ascend/descend 6 clinic steps TREATMENT: Therapeutic Exercise: 1: Nustep seat 11 UE/LE L3 x 5 minutes 2: *LAQ R/L x 10 3: *seated march R/L x 10 4: *seated B toe lift 2 sec hold x 10 5: slantboard stretch 2 x 15 sec hold, SBa 6: Left foot tap 6 step x 5 (weakness) Skilled Intervention: Patient was educated in proper exercise technique and purpose for exercises. Reviewed and educated patient on additions/changes for home exercise program as above (*). Skilled judgment was provided in selection of appropriate interventions. Provided written instruction for home exercise program to facilitate proper performance and compliance. Correct performance of therapeutic exercises was facilitated with verbal, visual and tactile cuing. Gait Trainin: education in using Rolator 2: 60 feet with Rolator, cue heel strike, step length, upright posture 3: clinic steps, 6 ascend/descend x 2 step to gait pattern, B UE support Skilled Intervention: Facilitated proper gait cycle with the use of verbal, visual and tactile cues for correction of gait deviations identified in the objective section above. Skilled judgment used to assess selection and proper use of assistive device. Education provided to patient regarding the proper sequence for stair negotiation. Billing Therapeutic Exercise Treatment Minutes: 28 Gait Training Treatment Minutes: 10 Total Treatment Time Minutes (timed and untimed codes) : 40 Adela Wayne PTA [facility] 11-23-2021 Note HNO ID: [id number] Author: Adela Wayne PTA Service: ? Author Type: Tool Lapper Hand Type: Progress Notes Filed: 11/23/2021 11:33 AM Note Text: Episode Visit Count: 2 Therapist That Will Oversee The Plan Of Care: Jade Melgoza Start of Care Date: 11/19/21 Onset Date: 02/19/21 Plan of Care Certification Date: 11/19/21 Next Certification Due Date: 02/17/22 Patient Identified by Name and Date of : Yes REHABILITATION AND SPORTS THERAPY PHYSICAL THERAPY TREATMENT NOTE ASSESSMENT: Sharon Reed demonstrated decreased balance step length with ambulation, hand support pool wall. Cuing to correct lumbar flexion posture. Back pain with hip extension and side stepping. Guarded with activity. Decreased left knee flexion vs right. PLAN FOR NEXT VISIT: continue left knee ROM, core strength SUBJECTIVE: Patient Reason for Visit: Patient reports left knee and back pain. Increased pain when standing/ sitting to long. Getting new walker tonight, old one broke. Patients ride got lost reason for being late. Pain: Pain Pain Level: 3 Pain Location: Knee - Left Description: Stiffness Frequency: Continuous Pain Level 2: 4 Pain Location 2: Back Description 2: Stiffness Frequency 2: Continuous Post Treatment Pain Post Treatment Pain Level: No Change Post Treatment Pain Score 2: (back looser) OBJECTIVE MEASURES WITH LEVEL OF FUNCTION: Patient ambulates to/from locker room without device. Patient enters/exited the pool via stairs, SBA. Patient accompanied by clinician in water throughout session, SBA unless otherwise noted. TREATMENT: Aquatic Therapy: Footwear on pool deck pre-treatment: Yes, patient wearing appropriate footwear and appeared safe on pool deck Footwear on pool deck post-treatment: Yes, patient wearing appropriate footwear and appeared safe on pool deck Aquatic Therapy (55744): 1 WATER DEPTH 3'6 - 3'9 - Giant dynamic steps forward/ retro,intermittent hand support on pool wall x 1 length each - Giant dynamic side step right/left, Intermittent hand support x 2 length WATER DEPTH 3'9 -R/L hamstring stretch 2 x 30 seconds each, back to pool wall -R/L hamstring curls x 10 each, 2 hand support at pool wall -R/L LAQ's x10 each with back to pool wall, cues for ankle DF on end range extension -Bilateral heel raise x10 each, 2 support at pool wall -Bilateral toe raises x5 each, 2 support at pool wall -CW/CCW 'hoola hoop' with 2 hands support at pool wall, 1 x 10 each direction WATER DEPTH 4'0 -R/L SLR flex/extend, abd/add 2x5 each, 1-2 hand support at pool wall -Double leg squats with ab bracing on standing x10 , 2 hand support at pool wall Skilled Intervention: Patient was educated in proper exercise technique and purpose for exercises. Skilled judgment was provided in selection of appropriate interventions. Skilled judgment used to assess appropriate program for balance and coordination activity. Patient education: Proper hydration following aquatic session Expectation of fatigue/discomfort with exercise progressions and normal response Goal to gradually decrease water depth to tolerance in preparation for transition to land based physical therapy and daily living Advised to rest as needed upon exiting pool prior to walking to locker room to re-acclimate to full weight bearing status Patient with good understanding. Billing Aquatic Therapy Treatment Minutes: 30 Total Treatment Time Minutes (timed and untimed codes) : 33 Adela Wayne, [facility] 11-19-2021 Note HNO ID: [id number] Author: Jade Melgoza, PT, DPT Service: ? Author Type: Physical Therapist Type: Progress Notes Filed: 11/19/2021 3:12 PM Note Text: Episode Visit Count: 1 Therapist That Will Oversee The Plan Of Care: Jade Melgoza Start of Care Date: 11/19/21 Onset Date: 02/19/21 Plan of Care Certification Date: 11/19/21 Next Certification Due Date: 02/17/22 Patient Identified by Name and Date of : Yes REHABILITATION AND SPORTS THERAPY PHYSICAL THERAPY EVALUATION PLAN OF CARE: Assessment: Sharon Reed presents with the chief complaint of low back pain and decreased knee mobility. She presents with impairments of increased pain with all mobility, decreased AROM in left knee for extension and flexion, decreased strength in left LE throughout, and decreased strength in core. She may benefit from skilled therapy services to improve the above mentioned and return her to PFL. Prognosis: Excellent Excellent due to: within-session changes Goals for Episode of Care: created on 11/19/21 through 01/18/22 [place] in home exercise program. Patient will decrease pain rating by 2 points to meet minimal clinical important difference for numeric pain rating scale.(9/10 in knee and (5/10) in left side low back. Patient will demonstrate increase in left LE strength to 4+/5 during manual muscle testing in order to improve function for basic self-care tasks, leisure / recreation skills, light functional tasks and prior functional tasks. Perform stairs and bed mobility without pain. Patient will Improve Timed Up and Go to 8 seconds to demonstrate decreased risk of falling. Normal gait. Reciprocal stair negotiation. Tolerate standing/sitting for >5 minutes without increased pain. Be able to maintain PPT for 10 seconds x 10 reps and bridge for 60 seconds Aquatic Goal: Patient will be independent with aquatic program and transition to a community pool. Patient Goals: to decrease back pain Planned Interventions, Frequency, and Duration: Current Frequency: 2x/week (one land and one aquatic) Duration: 6 weeks Total Number of Visits Planned: 12 Planned Treatment Interventions: Therapeutic exercise (83160);Neuromuscular re-education (32853);Manual therapy (43814);Therapeutic activities (20914);Self-correction management (94672);Gait Training (52494);Aquatic PT (96538);Patient/Family/Caregiver Education;Functional training;General Conditioning;Mechanical Traction (53815);E-Stim Attended/TENS (61695);Ultrasound (61554) PLAN FOR NEXT VISIT: core, add PPT to HEP, continue manual STM, add knee mobility and LE strengthening, aqautic therapy Patient demonstrates good understanding of plan of care and treatment. The above goals and plan of care were discussed and agreed upon by patient/family. SUBJECTIVE: Sharon Rede is a 76 year old female seen today for for left back pain. Pt fell in February on left side and pain since then. Had MRI for cervical and thoracic spine, but not for lumbar. Patient Goals: to decrease back pain Functional Limitations: sitting;rising from a chair;walking;walking in the house;walking in the community;stair negotiation;dressing;bed mobility Prior Level of Function: Independent without limitations Relevant History Right or Left Handed: Right Employment: Retired (at [employer]) Recreation / Current Exercise: play with grandchildren Hobbies / Interests: [employer], [employer] Home Environment Patient Lives With: Family Assistance Available: multimedia journalist (from grandchild) Home Type: Multi-Level with First Floor Set-Up Entry To Home: Stairs;With Rail Number Of Stairs Into Home: 2 Tub/Shower Type: chair in shower Laundry: assist Equipment Owned: (rollator) Intake Information: Prescription present Previous Treatment: Injections?;Pain meds?;Heat? Falls Interview: Fall with injury in the last year Falls Intervention: More thorough falls assessment to be performed Aquatic Screen: Yes Patient Weight: is 400 lbs or less Contra-indications to Aquatic Therapy: No noted contra-indications Ability to ascend /descend 5 stairs with assist of railing: Yes Red Flags Vertebral Fracture Red Flags: Age >70;Female Pain: Pain Pain Level: 5 Pain Location: (low middle back) Description: ( just pain ) Frequency: Continuous Additional Pain Information : Location 2 Pain Level 2: 9 Pain Location 2: Knee - Right Description 2: Tightness Frequency 2: Continuous Post Treatment Pain Post Treatment Pain Level: 4 Post Treatment Pain Location: (low back, left) Post Treatment Pain Score 2: (50% better in knee) PROMIS Scales T-scores: mean of general population = 50. 5 points is clinically meaningfully difference Percentiles provide an indication of how the patient's score ranks in relation to the general population. Higher percentile rankings indicate better function/quality of life. 50th percentile is the average of the (more content not included)... [facility] 11-12-2021 Note HNO ID: [id number] Author: Arianne Sorensen OT/L Service: ? Author Type: Occupational Therapist Type: Progress Notes Filed: 11/12/2021 3:04 PM Note Text: Episode Visit Count: 1 Therapist That Will Oversee The Plan Of Care: Jose Maria Acuña Start of Care Date: 11/12/21 Onset Date: 02/19/21 Plan of Care Certification Date: 11/12/21 Next Certification Due Date: 01/14/22 Patient Identified by Name and Date of : Yes [facility] REHABILITATION AND SPORTS THERAPY OCCUPATIONAL THERAPY EVALUATION PLAN OF CARE: Assessment: Sharon Reed presents with the chief complaint of left wrist pain and tingling. She presents with impairments of motion strength and edema. She may benefit from skilled occupational therapy services to improve function. Prognosis: Good Good due to: current objective clinical presentation Goals for Episode of Care created on 11/12/21 through 01/22/22 Patient will report a good understanding of diagnosis and OT recommendations for progression of program. Patient will demonstrate independence with ongoing home recommendations/exercise program throughout therapy plan of care. Planned Interventions, Frequency, and Duration: Current Frequency: 1x/week Duration: 6 weeks Total Number of Visits Planned: 6 Planned Treatment Interventions: Prefabricated orthosis fitting;Self-correction management (52119);Iontophoresis (47779) PLAN FOR NEXT VISIT: assess toleranc e to HEP ice and splinting determine if ionto will be provided Patient demonstrates good understanding of plan of care and treatment. The above goals and plan of care were discussed and agreed upon by patient/family. SUBJECTIVE: Sharon Reed is a 76 year old female seen today for left hand pain Relevant History Past Relevant Medical Conditions: Arthritis (eye knee and back) Preferred Language: Kyrgyz Right or Left Handed: Right Employment: Retired Home Environment Patient Lives With: Family Pain: Pain Pain Level: 8 Pain Location: Wrist - Left Description: Tingling Post Treatment Pain Post Treatment Pain Level: 4 Post Treatment Pain Location: Wrist - Left Post Treatment Pain Description: Tingling;Aching PROMIS Scales T-scores: mean of general population = 50. 5 points is clinically meaningfully difference Percentiles provide an indication of how the patient's score ranks in relation to the general population. Higher percentile rankings indicate better function/quality of life. 50th percentile is the average of the general population and indicates half of respondents had a worse score. T-scores: mean of general population = 50. 5 points is clinically meaningfully difference Percentiles provide an indication of how the patient's score ranks in relation to the general population. Higher percentile rankings indicate better function/quality of life. 50th percentile is the average of the general population and indicates half of respondents had a worse score. OBJECTIVE MEASURES WITH LEVEL OF FUNCTION: Hand Edema Location: left hand Edema Description: Mild Edema Measurements: Wrist (DWC) (cm) R Wrist (DWC) (cm): 17.7 L Wrist (DWC) (cm): 17.6 Wrist AROM: Left Limitation Strength: Automatic Grinding Machine Operator Position 2;Pinch Meter Sensation: Bushnell-Elli L Thumb: 3.61-diminished light touch L Index Finger: 3.61-diminished light touch L Middle Finger: 3.61-diminished light touch L Radial Ring Finger: 3.61-diminished light touch L Ulnar Ring Finger: 3.61-diminished light touch L Little Finger: 3.61-diminished light touch Provocative Testing: Tinel's Tinel's Sign: Left positive Hand Strength R Automatic Grinding Machine Operator Position 2 (lbs): 41 lbs L Automatic Grinding Machine Operator Position 2 (lbs): 20 lbs UE AROM L Wrist Extension: 35 Degrees L Wrist Flexion: 30 Degrees Special Tests - Elbow/Wrist/Hand Tinel's Sign: Left positive Education: Education Learning Preferences: Demonstration;Explanation Barriers: None Learning/educational needs: Home exercise program Education Provided: Yes, see treatment interventions for education provided Education Provided To: Patient Education Mode/Type: Demonstration;Explanation/Discussion Response to Education/Teach Back: States/Identifies;Return Demonstration;Requires Review/Additional Education TREATMENT: OT Treatment Interventions : Therapeutic Exercise;Self-Mcfp Management;Prefabricated Orthosis Fitting Evaluation Evaluation Therapeutic Exercise: 1: instructed pt in use of ice 2 x day, 2: educated in use of brace at night 3: issued sized d compression sleeve instructed in wear scheduel and precautions 4: issuede pre fabricated wrist brace instructed in wear schedule and precautions Skilled Intervention: Patient was educated in proper exercise technique and purpose for exercises. Self-Mcfp Management: 1: educated in diagnosis healing and activity modification Skilled Intervention: Skilled judgment in the selection of proper modific (more content not included)... [facility] 10-28-2021 Note HNO ID: [id number] Author: RT Kingsley(R) Service: Radiology Author Type: Beef Lugger Type: Progress Notes Filed: 10/28/2021 9:37 AM Note Text: Radiology Service Progress Note PATIENT NAME: Sharon Reed DATE OF SERVICE: October 28, 2021 TIME: 9:37 AM PATIENT IDENTITY VERIFICATION COMPLETED USING TWO (2) IDENTIFIERS: Name and Date of confirmed by patient verbally. FALL SCREENING: Has the patient had 2 falls in the last year or 1 fall with injury or currently using an Ambulatory Assistive Device (Walker, Cane, Wheelchair, Crutches, etc.)? No PATIENT GENDER DATA: Female. status: : No status: NO. PATIENT RELEVANT IMPLANT DATA REVIEWED: Yes RADIOLOGY DEPARTMENT: MR; Exam(s) Completed: Spine: Cervical spine and thoracic PERIPHERAL IV DATA: Not applicable SIGNED BY: RT Kingsley(R) October 28, 2021 9:37 AM [facility] 09-08-2021 Note HNO ID: [id number] Author: Chauncey Yousif MD Service: ? Author Type: Physician Type: Progress Notes Filed: 09/08/2021 6:16 AM Note Text: This is a very pleasant 76-year-old woman with a history of a left total knee done at an outside hospital. I have seen her in office twice. This is documentation of our infectious work-up. Her ESR and CRP have not been elevated. I aspirated her knee in clinic on August 27, and she only had 758 white blood cells according to our laboratory, and 11% neutrophils. The synovial fluid did grow Staph epidermidis in thioglycolate broth only. I had also sent her aspirate off to an outside laboratory, [facility]. According to this lab, she had 467 white blood cells at 50% neutrophils. Her microbial ID panel was negative for P acnes, Staphylococcus, Holly, Enterococcus. Her alpha defense and was negative as was her synovial CRP. Her aerobic and anaerobic cultures have no growth x7 days. Based on these aspirate results, I do not believe that she has a prosthetic joint infection. The Staph epidermidis is almost certainly a contaminant and does not represent a true infection. We will proceed with painful total joint work-up as described in clinic notes, now with infection ruled out. Chauncey Yousif MD Orthopaedic Surgery [phone] [facility] documented as of this encounter (statuses as of 02/11/2022) [facility]09[facility]28[facility]21 History of Past illness Narrative* Problem Noted Date Resolved Date Pre-operative examination 08/11/20212021 Gross hematuria 06/30/2015 01/13/2022 Other physical therapy 12/07/2010 2 Unspecified symptom associated with female genit al organs 01/09/2008 01/13/2022 Other specified disorder of bladder 01/09/2008 01/13/2022 Acute gastritis without mention of hemorrhage 01/13/2022 Closed fracture of one or more phalanges of foot 04/14/2007 01/13/2022 documented as of this encounter (statuses as of 02/11/2022) [facility]2021 History of Past illness Narrative* Problem Noted Date Resolved Date Pre-operative examination 08/11/20212021 Gross hematuria 06/30/2015 01/13/2022 Other physical therapy 12/07/2010 2 Unspecified symptom associated with female genit al organs 01/09/2008 01/13/2022 Other specified disorder of bladder 01/09/2008 01/13/2022 Acute gastritis without mention of hemorrhage 01/13/2022 Closed fracture of one or more phalanges of foot 04/14/2007 01/13/2022 documented as of this encounter (statuses as of 02/06/2022) [address]28-2021 History of Past illness Narrative* Problem Noted Date Resolved Date Pre-operative examination 08/11/20212021 Gross hematuria 06/30/2015 01/13/2022 Other physical therapy 12/07/2010 2 Unspecified symptom associated with female genit al organs 01/09/2008 01/13/2022 Other specified disorder of bladder 01/09/2008 01/13/2022 Acute gastritis without mention of hemorrhage 01/13/2022 Closed fracture of one or more phalanges of foot 04/14/2007 01/13/2022 documented as of this encounter (statuses as of 02/16/2022) [address]28-2021 History of Past illness Narrative* Problem Noted Date Resolved Date Pre-operative examination 08/11/20212021 Gross hematuria 06/30/2015 01/13/2022 Other physical therapy 12/07/2010 2 Unspecified symptom associated with female genit al organs 01/09/2008 01/13/2022 Other specified disorder of bladder 01/09/2008 01/13/2022 Acute gastritis without mention of hemorrhage 01/13/2022 Closed fracture of one or more phalanges of foot 04/14/2007 01/13/2022 documented as of this encounter (statuses as of 02/23/2022) [address]-2021 History of Past illness Narrative* Problem Noted Date Resolved Date Pre-operative examination 08/11/20212021 Gross hematuria 06/30/2015 01/13/2022 Other physical therapy 12/07/2010 2 Unspecified symptom associated with female genit al organs 01/09/2008 01/13/2022 Other specified disorder of bladder 01/09/2008 01/13/2022 Acute gastritis without mention of hemorrhage 01/13/2022 Closed fracture of one or more phalanges of foot 04/14/2007 01/13/2022 documented as of this encounter (statuses as of 02/25/2022) [address]-2021 History of Past illness Narrative* Problem Noted Date Resolved Date Pre-operative examination 08/11/20212021 Gross hematuria 06/30/2015 01/13/2022 Other physical therapy 12/07/2010 2 Unspecified symptom associated with female genit al organs 01/09/2008 01/13/2022 Other specified disorder of bladder 01/09/2008 01/13/2022 Acute gastritis without mention of hemorrhage 01/13/2022 Closed fracture of one or more phalanges of foot 04/14/2007 01/13/2022 documented as of this encounter (statuses as of 03/02/2022) [facility]21 History of Past illness Narrative* Problem Noted Date Resolved Date Pre-operative examination 08/11/20212021 Gross hematuria 06/30/2015 01/13/2022 Other physical therapy 12/07/2010 2 Unspecified symptom associated with female genit al organs 01/09/2008 01/13/2022 Other specified disorder of bladder 01/09/2008 01/13/2022 Acute gastritis without mention of hemorrhage 01/13/2022 Closed fracture of one or more phalanges of foot 04/14/2007 01/13/2022 documented as of this encounter (statuses as of 03/05/2022) [facility] History of Past illness Narrative* Problem Noted Date Resolved Date Pre-operative examination 08/11/20212021 Gross hematuria 06/30/2015 01/13/2022 Other physical therapy 12/07/2010 2 Unspecified symptom associated with female genit al organs 01/09/2008 01/13/2022 Other specified disorder of bladder 01/09/2008 01/13/2022 Acute gastritis without mention of hemorrhage 01/13/2022 Closed fracture of one or more phalanges of foot 04/14/2007 01/13/2022 documented as of this encounter (statuses as of 03/09/2022) [address]-2021 History of Past illness Narrative* Problem Noted Date Resolved Date Pre-operative examination 08/11/20212021 Gross hematuria 06/30/2015 01/13/2022 Other physical therapy 12/07/2010 2 Unspecified symptom associated with female genit al organs 01/09/2008 01/13/2022 Other specified disorder of bladder 01/09/2008 01/13/2022 Acute gastritis without mention of hemorrhage 01/13/2022 Closed fracture of one or more phalanges of foot 04/14/2007 01/13/2022 documented as of this encounter (statuses as of 03/26/2022) [address]-2021 History of Past illness Narrative* Problem Noted Date Resolved Date Pre-operative examination 08/11/20212021 Gross hematuria 06/30/2015 01/13/2022 Other physical therapy 12/07/2010 2 Unspecified symptom associated with female genit al organs 01/09/2008 01/13/2022 Other specified disorder of bladder 01/09/2008 01/13/2022 Acute gastritis without mention of hemorrhage 01/13/2022 Closed fracture of one or more phalanges of foot 04/14/2007 01/13/2022 documented as of this encounter (statuses as of 03/26/2022) [address]-2021 History of Past illness Narrative* Problem Noted Date Resolved Date Pre-operative examination 08/11/20212021 Gross hematuria 06/30/2015 01/13/2022 Other physical therapy 12/07/2010 2 Unspecified symptom associated with female genit al organs 01/09/2008 01/13/2022 Other specified disorder of bladder 01/09/2008 01/13/2022 Acute gastritis without mention of hemorrhage 01/13/2022 Closed fracture of one or more phalanges of foot 04/14/2007 01/13/2022 documented as of this encounter (statuses as of 03/31/2022) [address]28-2021 History of Past illness Narrative* Problem Noted Date Resolved Date Pre-operative examination 08/11/20212021 Gross hematuria 06/30/2015 01/13/2022 Other physical therapy 12/07/2010 2 Unspecified symptom associated with female genit al organs 01/09/2008 01/13/2022 Other specified disorder of bladder 01/09/2008 01/13/2022 Acute gastritis without mention of hemorrhage 01/13/2022 Closed fracture of one or more phalanges of foot 04/14/2007 01/13/2022 documented as of this encounter (statuses as of 04/29/2022) [facility] History of Past illness Narrative* Problem Noted Date Resolved Date Pre-operative examination 08/11/20212021 Gross hematuria 06/30/2015 01/13/2022 Other physical therapy 12/07/2010 2 Unspecified symptom associated with female genit al organs 01/09/2008 01/13/2022 Other specified disorder of bladder 01/09/2008 01/13/2022 Acute gastritis without mention of hemorrhage 01/13/2022 Closed fracture of one or more phalanges of foot 04/14/2007 01/13/2022 documented as of this encounter (statuses as of 05/12/2022) [facility] History of Past illness Narrative* Problem Noted Date Resolved Date Pre-operative examination 08/11/20212021 Gross hematuria 06/30/2015 01/13/2022 Other physical therapy 12/07/2010 2 Unspecified symptom associated with female genit al organs 01/09/2008 01/13/2022 Other specified disorder of bladder 01/09/2008 01/13/2022 Acute gastritis without mention of hemorrhage 01/13/2022 Closed fracture of one or more phalanges of foot 04/14/2007 01/13/2022 documented as of this encounter (statuses as of 05/14/2022) [address]-2021 History of Past illness Narrative* Problem Noted Date Resolved Date Pre-operative examination 08/11/20212021 Gross hematuria 06/30/2015 01/13/2022 Other physical therapy 12/07/2010 2 Unspecified symptom associated with female genit al organs 01/09/2008 01/13/2022 Other specified disorder of bladder 01/09/2008 01/13/2022 Acute gastritis without mention of hemorrhage 01/13/2022 Closed fracture of one or more phalanges of foot 04/14/2007 01/13/2022 documented as of this encounter (statuses as of 05/19/2022) [address]-2021 History of Past illness Narrative* Problem Noted Date Resolved Date Pre-operative examination 08/11/20212021 Gross hematuria 06/30/2015 01/13/2022 Other physical therapy 12/07/2010 2 Unspecified symptom associated with female genit al organs 01/09/2008 01/13/2022 Other specified disorder of bladder 01/09/2008 01/13/2022 Acute gastritis without mention of hemorrhage 01/13/2022 Closed fracture of one or more phalanges of foot 04/14/2007 01/13/2022 documented as of this encounter (statuses as of 05/25/2022) [address]28-2021 History of Past illness Narrative* Problem Noted Date Resolved Date Pre-operative examination 08/11/20212021 Gross hematuria 06/30/2015 01/13/2022 Other physical therapy 12/07/2010 2 Unspecified symptom associated with female genit al organs 01/09/2008 01/13/2022 Other specified disorder of bladder 01/09/2008 01/13/2022 Acute gastritis without mention of hemorrhage 01/13/2022 Closed fracture of one or more phalanges of foot 04/14/2007 01/13/2022 documented as of this encounter (statuses as of 06/03/2022) [address]-2021 History of Past illness Narrative* Problem Noted Date Resolved Date Pre-operative examination 08/11/20212021 Gross hematuria 06/30/2015 01/13/2022 Other physical therapy 12/07/2010 2 Unspecified symptom associated with female genit al organs 01/09/2008 01/13/2022 Other specified disorder of bladder 01/09/2008 01/13/2022 Acute gastritis without mention of hemorrhage 01/13/2022 Closed fracture of one or more phalanges of foot 04/14/2007 01/13/2022 documented as of this encounter (statuses as of 06/10/2022) [address]28-2021 History of Past illness Narrative* Problem Noted Date Resolved Date Pre-operative examination 08/11/20212021 Gross hematuria 06/30/2015 01/13/2022 Other physical therapy 12/07/2010 2 Unspecified symptom associated with female genit al organs 01/09/2008 01/13/2022 Other specified disorder of bladder 01/09/2008 01/13/2022 Acute gastritis without mention of hemorrhage 01/13/2022 Closed fracture of one or more phalanges of foot 04/14/2007 01/13/2022 documented as of this encounter (statuses as of 06/10/2022) [address]28-2021 History of Past illness Narrative* Problem Noted Date Resolved Date Pre-operative examination 08/11/20212021 Gross hematuria 06/30/2015 01/13/2022 Other physical therapy 12/07/2010 2 Unspecified symptom associated with female genit al organs 01/09/2008 01/13/2022 Other specified disorder of bladder 01/09/2008 01/13/2022 Acute gastritis without mention of hemorrhage 01/13/2022 Closed fracture of one or more phalanges of foot 04/14/2007 01/13/2022 documented as of this encounter (statuses as of 06/15/2022) [address]28-2021 History of Past illness Narrative* Problem Noted Date Resolved Date Pre-operative examination 08/11/20212021 Gross hematuria 06/30/2015 01/13/2022 Other physical therapy 12/07/2010 2 Unspecified symptom associated with female genit al organs 01/09/2008 01/13/2022 Other specified disorder of bladder 01/09/2008 01/13/2022 Acute gastritis without mention of hemorrhage 01/13/2022 Closed fracture of one or more phalanges of foot 04/14/2007 01/13/2022 documented as of this encounter (statuses as of 07/22/2022) [address]28-2021 History of Past illness Narrative* Problem Noted Date Resolved Date Pre-operative examination 08/11/20212021 Gross hematuria 06/30/2015 01/13/2022 Other physical therapy 12/07/2010 2 Unspecified symptom associated with female genit al organs 01/09/2008 01/13/2022 Other specified disorder of bladder 01/09/2008 01/13/2022 Acute gastritis without mention of hemorrhage 01/13/2022 Closed fracture of one or more phalanges of foot 04/14/2007 01/13/2022 documented as of this encounter (statuses as of 07/29/2022) [address]28-2021 History of Past illness Narrative* Problem Noted Date Resolved Date Pre-operative examination 08/11/20212021 Gross hematuria 06/30/2015 01/13/2022 Other physical therapy 12/07/2010 2 Unspecified symptom associated with female genit al organs 01/09/2008 01/13/2022 Other specified disorder of bladder 01/09/2008 01/13/2022 Acute gastritis without mention of hemorrhage 01/13/2022 Closed fracture of one or more phalanges of foot 04/14/2007 01/13/2022 documented as of this encounter (statuses as of 08/03/2022) [address]28-2021 History of Past illness Narrative* Problem Noted Date Resolved Date Pre-operative examination 08/11/20212021 Gross hematuria 06/30/2015 01/13/2022 Other physical therapy 12/07/2010 2 Unspecified symptom associated with female genit al organs 01/09/2008 01/13/2022 Other specified disorder of bladder 01/09/2008 01/13/2022 Acute gastritis without mention of hemorrhage 01/13/2022 Closed fracture of one or more phalanges of foot 04/14/2007 01/13/2022 documented as of this encounter (statuses as of 08/30/2022) [address]28-2021 History of Past illness Narrative* Problem Noted Date Resolved Date Pre-operative examination 08/11/20212021 Gross hematuria 06/30/2015 01/13/2022 Other physical therapy 12/07/2010 2 Unspecified symptom associated with female genit al organs 01/09/2008 01/13/2022 Other specified disorder of bladder 01/09/2008 01/13/2022 Acute gastritis without mention of hemorrhage 01/13/2022 Closed fracture of one or more phalanges of foot 04/14/2007 01/13/2022 documented as of this encounter (statuses as of 09/28/2022) [address]28-2021 History of Past illness Narrative* Problem Noted Date Resolved Date Pre-operative examination 08/11/20212021 Gross hematuria 06/30/2015 01/13/2022 Other physical therapy 12/07/2010 2 Unspecified symptom associated with female genit al organs 01/09/2008 01/13/2022 Other specified disorder of bladder 01/09/2008 01/13/2022 Acute gastritis without mention of hemorrhage 01/13/2022 Closed fracture of one or more phalanges of foot 04/14/2007 01/13/2022 documented as of this encounter (statuses as of 10/19/2022) [facility]-28-2021 History of Past illness Narrative* Problem Noted Date Resolved Date Pre-operative examination 08/11/20212021 Gross hematuria 06/30/2015 01/13/2022 Other physical therapy 12/07/2010 2 Unspecified symptom associated with female genit al organs 01/09/2008 01/13/2022 Other specified disorder of bladder 01/09/2008 01/13/2022 Acute gastritis without mention of hemorrhage 01/13/2022 Closed fracture of one or more phalanges of foot 04/14/2007 01/13/2022 documented as of this encounter (statuses as of 12/08/2022) [address]28-2021 History of Past illness Narrative* Problem Noted Date Resolved Date Pre-operative examination 08/11/20212021 Gross hematuria 06/30/2015 01/13/2022 Other physical therapy 12/07/2010 2 Unspecified symptom associated with female genit al organs 01/09/2008 01/13/2022 Other specified disorder of bladder 01/09/2008 01/13/2022 Acute gastritis without mention of hemorrhage 01/13/2022 Closed fracture of one or more phalanges of foot 04/14/2007 01/13/2022 documented as of this encounter (statuses as of 03/16/2023) [facility]-28-2021 History of Past illness Narrative* Problem Noted Date Resolved Date Pre-operative examination 08/11/20212021 Gross hematuria 06/30/2015 01/13/2022 Other physical therapy 12/07/2010 Unspecified symptom associated with female genit al organs 01/09/2008 01/13/2022 Other specified disorder of bladder 01/09/2008 01/13/2022 Acute gastritis without mention of hemorrhage 01/13/2022 Closed fracture of one or more phalanges of foot 04/14/2007 01/13/2022 documented as of this encounter (statuses as of 03/16/2023) [facility]-12-2021 Miscellaneous Notes* Telephone Encounter - Alrine Vaughan - 05/25/2021 8:46 AM EDT Left VM for patient to please call back and r/s. Dr. Aguilera out 05/26/21, patient can reschedule withChristopher Cobb. [facility] Diagnosis Chronic left-sided low back pain with left-sided sciatica- Primary [facility] Diagnosis Instability of internal left knee prosthesis, subsequent encounter- Primary [facility] Diagnosis Arthralgia of left wrist [facility] Diagnosis Chronic left-sided low back pain with left-sided sciatica- Primary [facility] Diagnosis Chronic left-sided low back pain with left-sided sciatica- Primary [facility] Diagnosis Chronic left-sided low back pain with left-sided sciatica- Primary Parkinson's disease (HCC) Paralysis agitans [facility] Diagnosis Arthralgia of left wrist Left wrist pain Pain in joint, forearm Arthritis of wrist Unspecified arthropathy, forearm [facility] Diagnosis Instability of internal left knee prosthesis, subsequent encounter- Primary Lumbar degenerative disc disease Degeneration of lumbar or lumbosacral intervertebral disc 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, subsequent encounter [facility] Diagnosis Arthralgia of left wrist- Primary Left wrist pain Pain in joint, forearm Arthritis of wrist Unspecified arthropathy, forearm [facility] Diagnosis Injury of triangular fibrocartilage complex (TFCC) of left wrist, initial encounter- Primary Scapholunate ligament injury with no instability, left, initial encounter Tendinitis of extensor tendon of hand [facility] Diagnosis Chronic left-sided low back pain with left-sided sciatica- Primary [facility] Diagnosis Lumbar radiculopathy- Primary Thoracic or lumbosacral neuritis or radiculitis, unspecified [facility] Diagnosis Spinal stenosis of lumbar region with neurogenic claudication Spinal stenosis, lumbar region, with neurogenic claudication [facility] Diagnosis Degenerative TFCC tear, left- Primary Scapholunate ligament injury with no instability, left, initial encounter [facility] Diagnosis Chronic low back pain with left-sided sciatica, unspecified back pain laterality- Primary Lumbar degenerative disc disease Degeneration of lumbar or lumbosacral intervertebral disc [facility] Diagnosis Degenerative TFCC tear, left- Primary Scapholunate ligament injury with no instability, left, initial encounter Injury of triangular fibrocartilage complex (TFCC) of left wrist, initial encounter Tendinitis of extensor tendon of hand [facility] Diagnosis Left leg pain- Primary Pain in limb [facility] Diagnosis 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 [facility] Diagnosis Chronic left shoulder pain Pain in joint, shoulder region [facility] Diagnosis Chronic left shoulder pain- Primary Pain in joint, shoulder region Impingement syndrome of left shoulder Other affections of shoulder region, not elsewhere classified Calcific tendinitis of left shoulder Calcifying tendinitis of shoulder [facility] Diagnosis Chronic left shoulder pain- Primary Pain in joint, shoulder region Impingement syndrome of left shoulder Other affections of shoulder region, not elsewhere classified Calcific tendinitis of left shoulder Calcifying tendinitis of shoulder [facility] Diagnosis Left wrist pain- Primary Pain in joint, forearm [facility] Diagnosis Degenerative TFCC tear, left- Primary Morbid obesity (HCC) Morbid obesity documented in this encounter [facility] for referral (narrative)* Diagnostic Procedure Only (Routine) - Closed Specialty Diagnoses / Procedures Referred By Contac t Referred To Contact XR IMAGING Diagnoses Chronic left shoulder pain Procedures XR SHOULDER GENERAL 3V OR MORE AP/TRUE AP/OTHER LEFT RADEX SHOULDER COMPLETE MINIMUM 2 VIEWS Florence Finley DO [address] [place] [address] Xr Imaging Referral ID Status Reason Start Date Expiration Date V isits Requested Visits Authorized [id number] Closed Auto-Generate d Referral 07/28/2022 08/27/2023 1 1 [facility] for referral (narrative)* Diagnostic Procedure Only (Routine) - Closed Specialty Diagnoses / Procedures Referred By Contac t Referred To Contact XR IMAGING Diagnoses Chronic left shoulder pain Procedures XR SHOULDER GENERAL 3V OR MORE AP/TRUE AP/OTHER LEFT RADEX SHOULDER COMPLETE MINIMUM 2 VIEWS Florence Finley DO [address] [place] [address] Xr Imaging Referral ID Status Reason Start Date Expiration Date V isits Requested Visits Authorized [id number] Closed Auto-Generate d Referral 07/28/2022 08/27/2023 1 1 [facility] for referral (narrative)* Diagnostic Procedure Only (Routine) - Authorized Specialty Diagnoses / Procedures Referred By Contac t Referred To Contact XR IMAGING Diagnoses Left wrist pain Procedures XR WRIST INJURY 4V PA/LAT/OBL/SCAPH LEFT RADEX WRIST COMPLETE MINIMUM 3 VIEWS Desirae Sorensen, [place] [address] [place] [address] Xr Imaging Referral ID Status Reason Start Date Expiration Date Visits Requested Visits Authorized [id number] Authorized Auto-Generat ed Referral 03/15/2023 04/13/2024 1 1 [facility]* Diagnostic Procedure Only (Routine) - Closed Specialty Diagnoses / Procedures Referred By Johnathon goldberg Referred To Contact XR IMAGING Diagnoses Chronic left shoulder pain Procedures XR SHOULDER GENERAL 3V OR MORE AP/TRUE AP/OTHER LEFT RADEX SHOULDER COMPLETE MINIMUM 2 VIEWS Florence Finley [place] [facility] [place] [address] Xr Imaging Referral ID Status Reason Start Date Expiration Date V isits Requested Visits Authorized [id number] Closed Auto-Generate d Referral 07/28/2022 08/27/2023 1 1 [facility] Instructions Instruction Description Start Date Please follow-up with Primar y Care Physician or Label Designer for treatment or adjustment of medication regarding elevated blood pressure.Patient advised to follow-up with Primary Care Physician for BMI management. 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 Review of System There may be information available, but it has not been provided by the sender. Family History There may be information available, but it has not been provided by the sender.No Family History Records FoundNo Family History Records FoundNo Family History Records Found Summary Purpose Reason for Referral Specialty Diagnoses / Procedures Referred By Johnathon goldberg Referred To Contact MR IMAGING Diagnoses Arthralgia of left wrist Procedures MRI WRIST WO IVCON LT MRI ANY JT UPPER EXTREMITY W/O CONTRAST MATRL Florence Finley DO [address] [place] [address] Mr Imaging Referral ID Status Reason Start Date Expiration Date Visits Requested Visits Authorized [id number] Authorized Auto-Generat ed Referral 01/27/2022 02/26/2023 1 1 Specialty Diagnoses / Procedures Referred By Contac t Referred To Contact MR IMAGING Diagnoses Arthralgia of left wrist Left wrist pain Arthritis of wrist Procedures MRI WRIST WO IVCON LT MRI ANY JT UPPER EXTREMITY W/O CONTRAST MATRL Florence Finley, [facility] [place] [address] Mr Imaging Referral ID Status Reason Start Date Expiration Date V isits Requested Visits Authorized [id number] Closed Auto-Generate d Referral 02/09/2022 03/11/2023 1 1 Specialty Diagnoses / Procedures Referred By Contac t Referred To Contact MR IMAGING Diagnoses Spinal stenosis of lumbar region with neurogenic claudication Procedures MRI LUMBAR SPINE WO IVCON MRI, LUMBAR SPINE Daija Alcocer PA-C [address] 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 HIGH COMPLEX 60 MINS Florence Finley, [address] [place] [address] [facility] [place] [address] [place] [address] Referral ID Status Reason Start Date Expiration Date V isits Requested Visits Authorized [id number] Authorized 11/14/2021 11/13/2022 99 99 Medications Administered Section Inactive Administered Medications - up to 3 most recent administrations Medication Order MAR Action Action Date Dose Rate Site bupivacaine (PF) 0.5 % (5 mg/mL) 1 mL injection 1 mL, Injection - FOR ORTHO USE ONLY, ONE TIME INJECTION, 1 dose, Starting on Tue05/19/22 at 0957, Until Tue05/19/22 at 0957 Given 05/19/2022 9:57 AM EDT 1 mL triamcinolone acetonide 10 mg injection (KeNALog 10) 10 mg, Injection - FOR ORTHO USE ONLY, ONE TIME INJECTION, 1 dose, Starting on Tue05/19/22 at 0957, Until Tue05/19/22 at 0957 Given 05/19/2022 9:57 AM EDT 10 mg Inactive Administered Medications - up to 3 most recent administrations Medication Order MAR Action Action Date Dose Rate Site bupivacaine (PF) 0.5 % (5 mg/mL) 8 mL injection 8 mL, Injection - FOR ORTHO USE ONLY, ONE TIME INJECTION, 1 dose, Starting on Tue08/03/22 at 1036, Until Tue08/03/22 at 1036 Given 08/03/2022 10:36 AM EDT 8 mL Shoulder, Left triamcinolone acetonide 80 mg injection (KeNALog 40) 80 mg, Injection - FOR ORTHO USE ONLY, ONE TIME INJECTION, 1 dose, Starting on Tue08/03/22 at 1036, Until Tue08/03/22 at 1036 Given 08/03/2022 10:36 AM EDT 80 mg Shoulder, Left Additional Source Comments INFORMATION SOURCE (unrecogn ized section and content) DATE CREATED AUTHOR AUTHOR'S ORGANIZ ATION 08/13/2022 [facility] DATE CREATED AUTHOR AUTHOR'S ORGANIZ ATION 03/17/2023 [facility] Source Comments (unrecognize d section and content) In the event this informatio n is protected by the Federal Confidentiality of Alcohol and Drug Abuse Patient Records regulations: The Federal rules restrict any use of the information to criminally investigate or prosecute any alcohol or drug abuse patient.[facility] the event this information is protected by the Federal Confidentiality of Alcohol and Drug Abuse Patient Records regulations: The Federal rules restrict any use of the information to criminally investigate or prosecute any alcohol or drug abuse patient.[facility] the event this information is protected by the Federal Confidentiality of Alcohol and Drug Abuse Patient Records regulations: The Federal rules restrict any use of the information to criminally investigate or prosecute any alcohol or drug abuse patient.[facility] the event this information is protected by the Federal Confidentiality of Alcohol and Drug Abuse Patient Records regulations: The Federal rules restrict any use of the information to criminally investigate or prosecute any alcohol or drug abuse patient.[facility] the event this information is protected by the Federal Confidentiality of Alcohol and Drug Abuse Patient Records regulations: The Federal rules restrict any use of the information to criminally investigate or prosecute any alcohol or drug abuse patient.[facility] the event this information is protected by the Federal Confidentiality of Alcohol and Drug Abuse Patient Records regulations: The Federal rules restrict any use of the information to criminally investigate or prosecute any alcohol or drug abuse patient.[facility] the event this information is protected by the Federal Confidentiality of Alcohol and Drug Abuse Patient Records regulations: The Federal rules restrict any use of the information to criminally investigate or prosecute any alcohol or drug abuse patient.[facility] the event this information is protected by the Federal Confidentiality of Alcohol and Drug Abuse Patient Records regulations: The Federal rules restrict any use of the information to criminally investigate or prosecute any alcohol or drug abuse patient.[facility] the event this information is protected by the Federal Confidentiality of Alcohol and Drug Abuse Patient Records regulations: The Federal rules restrict any use of the information to criminally investigate or prosecute any alcohol or drug abuse patient.[facility] the event this information is protected by the Federal Confidentiality of Alcohol and Drug Abuse Patient Records regulations: The Federal rules restrict any use of the information to criminally investigate or prosecute any alcohol or drug abuse patient.[facility] the event this information is protected by the Federal Confidentiality of Alcohol and Drug Abuse Patient Records regulations: The Federal rules restrict any use of the information to criminally investigate or prosecute any alcohol or drug abuse patient.[facility] the event this information is protected by the Federal Confidentiality of Alcohol and Drug Abuse Patient Records regulations: The Federal rules restrict any use of the information to criminally investigate or prosecute any alcohol or drug abuse patient.[facility] the event this information is protected by the Federal Confidentiality of Alcohol and Drug Abuse Patient Records regulations: The Federal rules restrict any use of the information to criminally investigate or prosecute any alcohol or drug abuse patient.[facility] the event this information is protected by the Federal Confidentiality of Alcohol and Drug Abuse Patient Records regulations: The Federal rules restrict any use of the information to criminally investigate or prosecute any alcohol or drug abuse patient.[facility] the event this information is protected by the Federal Confidentiality of Alcohol and Drug Abuse Patient Records regulations: The Federal rules restrict any use of the information to criminally investigate or prosecute any alcohol or drug abuse patient.[facility] the event this information is protected by the Federal Confidentiality of Alcohol and Drug Abuse Patient Records regulations: The Federal rules restrict any use of the information to criminally investigate or prosecute any alcohol or drug abuse patient.[facility] the event this information is protected by the Federal Confidentiality of Alcohol and Drug Abuse Patient Records regulations: The Federal rules restrict any use of the information to criminally investigate or prosecute any alcohol or drug abuse patient.[facility] the event this information is protected by the Federal Confidentiality of Alcohol and Drug Abuse Patient Records regulations: The Federal rules restrict any use of the information to criminally investigate or prosecute any alcohol or drug abuse patient.[facility] the event this information is protected by the Federal Confidentiality of Alcohol and Drug Abuse Patient Records regulations: The Federal rules restrict any use of the information to criminally investigate or prosecute any alcohol or drug abuse patient.[facility] the event this information is protected by the Federal Confidentiality of Alcohol and Drug Abuse Patient Records regulations: The Federal rules restrict any use of the information to criminally investigate or prosecute any alcohol or drug abuse patient.[facility] ShawIn the event this information is protected by the Federal Confidentiality of Alcohol and Drug Abuse Patient Records regulations: The Federal rules restrict any use of the information to criminally investigate or prosecute any alcohol or drug abuse patient.[facility] ShawIn the event this information is protected by the Federal Confidentiality of Alcohol and Drug Abuse Patient Records regulations: The Federal rules restrict any use of the information to criminally investigate or prosecute any alcohol or drug abuse patient.[facility] ShawIn the event this information is protected by the Federal Confidentiality of Alcohol and Drug Abuse Patient Records regulations: The Federal rules restrict any use of the information to criminally investigate or prosecute any alcohol or drug abuse patient.[facility] ShawIn the event this information is protected by the Federal Confidentiality of Alcohol and Drug Abuse Patient Records regulations: The Federal rules restrict any use of the information to criminally investigate or prosecute any alcohol or drug abuse patient.[facility] ShawIn the event this information is protected by the Federal Confidentiality of Alcohol and Drug Abuse Patient Records regulations: The Federal rules restrict any use of the information to criminally investigate or prosecute any alcohol or drug abuse patient.[facility] ShawIn the event this information is protected by the Federal Confidentiality of Alcohol and Drug Abuse Patient Records regulations: The Federal rules restrict any use of the information to criminally investigate or prosecute any alcohol or drug abuse patient.[facility] ShawIn the event this information is protected by the Federal Confidentiality of Alcohol and Drug Abuse Patient Records regulations: The Federal rules restrict any use of the information to criminally investigate or prosecute any alcohol or drug abuse patient.[facility] ShawIn the event this information is protected by the Federal Confidentiality of Alcohol and Drug Abuse Patient Records regulations: The Federal rules restrict any use of the information to criminally investigate or prosecute any alcohol or drug abuse patient.[facility] ShawIn the event this information is protected by the Federal Confidentiality of Alcohol and Drug Abuse Patient Records regulations: The Federal rules restrict any use of the information to criminally investigate or prosecute any alcohol or drug abuse patient.[facility] ShawIn the event this information is protected by the Federal Confidentiality of Alcohol and Drug Abuse Patient Records regulations: The Federal rules restrict any use of the information to criminally investigate or prosecute any alcohol or drug abuse patient.[facility] Reason for Visit (unrecogniz ed section and content) Specialty Diagnoses / Procedures Referred By Johnathon goldberg Referred To Contact Physical Therapy / PHYSICAL THERAPY Diagnoses Lumbar degenerative disc disease [M51.36] Lumbar radiculopathy [M54.16] Procedures EST RS PT ORTH MSK Daija Alcocer, GRAHAM [address] [place] [address] Adela Wayne PTA [address] [place] [address] Referral ID Status Reason Start Date Expiration Date V isits Requested Visits Authorized [id number] Authorized 11/14/2021 11/13/2022 99 99 Reason Comments Physical Therapy Reason Comments Follow Up Specialty Diagnoses / Procedures Referred By Johnathon goldberg Referred To Contact MR IMAGING Diagnoses Arthralgia of left wrist Procedures MRI WRIST WO IVCON LT MRI ANY JT UPPER EXTREMITY W/O CONTRAST MATRFlorence Bermudez DO [address] [place] [address] Mr Imaging Referral ID Status Reason Start Date Expiration Date Visits Requested Visits Authorized [id number] Authorized Auto-Generat ed Referral 01/27/2022 02/26/2023 1 1 Specialty Diagnoses / Procedures Referred By Contac t Referred To Contact MR IMAGING Diagnoses Arthralgia of left wrist Left wrist pain Arthritis of wrist Procedures MRI WRIST WO IVCON LT MRI ANY JT UPPER EXTREMITY W/O CONTRAST Florence Mosley [address] [place] [address] Mr Imaging Referral ID Status Reason Start Date Expiration Date V isits Requested Visits Authorized [id number] Closed Auto-Generate d Referral 02/09/2022 03/11/2023 1 1 Reason Comments Established Patient Swelling Knee Pain Follow Up Reason Comments Patient Question Patient Update Reason Comments Appointment reschedule please th e cancelled re-check in PT Reason Comments Follow Up Pain Reason Comments Appointment Rescheduled Reason Comments Prescription Specialty Diagnoses / Procedures Referred By Contac t Referred To Contact MR IMAGING Diagnoses Spinal stenosis of lumbar region with neurogenic claudication Procedures MRI LUMBAR SPINE WO IVCON MRI, LUMBAR SPINE Daija Alcocer PA-C [address] [place] [address] Mr Imaging Referral ID Status Reason Start Date Expiration Date V isits Requested Visits Authorized [id number] Closed Auto-Generate d Referral 04/30/2022 10/27/2022 1 1 Reason Comments Established Patient MRI results Reason Comments Follow Up Pain Reason Comments New Pain Specialty Diagnoses / Procedures Referred By Contac t Referred To Contact Orthopedics / ORTHOPAEDIC SURGERY Diagnoses L knee pain Procedures OFFICE/OUTPATIENT NEW HIGH MDM 60-74 MINUTES [facility] Susan Yañez [address] [place] [address] Rory Gutierrez MD [address] [place] [address] Referral ID Status Reason Start Date Expiration Date Visits Re quested Visits Authorized [id number] Closed 06/10/2022 11/13/2022 1 1 Reason Comments Chart prep Reason Comments OT Discharge Specialty Diagnoses / Procedures Referred By Johnathon t Referred To Contact [facility] Diagnoses Degenerative TFCC tear, left Scapholunate ligament injury with no instability, left, initial encounter Injury of triangular fibrocartilage complex (TFCC) of left wrist, initial encounter Tendinitis of extensor tendon of hand Procedures CONSULT TO [employer] OCCUPATIONAL THERAPY EVAL HIGH COMPLEX 60 MINS Florence Finley DO [address] [place] [address] [facility] [place] [address] [place] [address] Referral ID Status Reason Start Date Expiration Date V isits Requested Visits Authorized [id number] Authorized 11/14/2021 11/13/2022 99 99 Reason Onset Date Comments Refill Request Refill Request 08/30/2022 Reason Comments Established Patient Follow Up Reason Onset Date Comments Refill Request 09/30/2022 Reason Comments Appointment Care Teams (unrecognized sec tion and content) Senior Construction Estimator Relationship Specialty Start Date End Date Susan Yañez [address] [facility] [address] [place] [address] PCP - General Family Practice 08/10/21 Susan Yañez [address] [facility] [address] [place] [address] Referring Family Practice 04/28/21 Jefry Chang [address] [place] [address] Referring Ophthalmology 05/25/21 Senior Construction Estimator Relationship Specialty Start Date End Date Susan Yañez [address] [facility] [address] [place] [address] PCP - General Family Practice 08/10/21 Susan Yañez [address] [facility] [address] [place] [address] Referring Family Practice 04/28/21 Jefry Chang [address] [place] [address] Referring Ophthalmology 05/25/21 Senior Construction Estimator Relationship Specialty Start Date End Date Susan Yañez [address] [place] [address] PCP - General Family Practice 08/10/21 Susan Yañez [address] [place] [address] Referring Family Practice 04/28/21 Jefry Chang [address] [place] [address] Referring Ophthalmology 05/25/21 Senior Construction Estimator Relationship Specialty Start Date End Date Susan Yañez [address] [place] [address] PCP - General Family Practice 08/10/21 Susan Yañez [address] [place] [address] Referring Family Practice 04/28/21 Jefry Chang [address] [place] [address] Referring Ophthalmology 05/25/21 Senior Construction Estimator Relationship Specialty Start Date End Date Susan Yañez [address] [place] [address] PCP - General Family Practice 08/10/21 Susan Yañez [address] [place] [address] Referring Family Practice 04/28/21 Jefry Chang [address] [place] [address] Referring Ophthalmology 05/25/21 Senior Construction Estimator Relationship Specialty Start Date End Date Susan Yañez [address] [place] [address] PCP - General Family Practice 08/10/21 Susan Yañez [address] [place] [address] Referring Family Practice 04/28/21 Jefry Chang [address] [place] [address] Referring Ophthalmology 05/25/21 Senior Construction Estimator Relationship Specialty Start Date End Date Susan Sorensen MD [address] [place] [address] PCP - General 02/24/01 08/09/21 Susan Yañez [address] [facility] [address] [place] [address] PCP - General Family Practice 08/10/21 Susan Yañez [address] [place] [address] Referring Family Practice 04/28/21 Jefry Chang [address] [place] [address] Referring Ophthalmology 05/25/21 Senior Construction Estimator Relationship Specialty Start Date End Date Susan Yañez [address] [place] [address] PCP - General Family Practice 08/10/21 Susan Yañez [address] [place] [address] Referring Family Practice 04/28/21 Jefry Chang [address] [place] [address] Referring Ophthalmology 05/25/21 Senior Construction Estimator Relationship Specialty Start Date End Date Susan Yañez [address] [place] [address] PCP - General Family Practice 08/10/21 Susan Yañez [address] [place] [address] Referring Family Practice 04/28/21 Jefry Chang [address] [place] [address] Referring Ophthalmology 05/25/21 Senior Construction Estimator Relationship Specialty Start Date End Date Susan Yañez [address] [place] [address] PCP - General Family Practice 08/10/21 Susan Yañez [address] [place] [address] Referring Family Practice 04/28/21 Jefry Chang [address] [place] [address] Referring Ophthalmology 05/25/21 Senior Construction Estimator Relationship Specialty Start Date End Date Susan Yañez [address] [place] [address] PCP - General Family Practice 08/10/21 Susan Yañez [address] [place] [address] Referring Family Practice 04/28/21 Jefry Chang [address] [place] [address] Referring Ophthalmology 05/25/21 Senior Construction Estimator Relationship Specialty Start Date End Date Susan Yañez [address] [place] [address] PCP - General Family Practice 08/10/21 Susan Yañez [address] [place] [address] Referring Family Practice 04/28/21 Jefry Chang [address] [place] [address] Referring Ophthalmology 05/25/21 Senior Construction Estimator Relationship Specialty Start Date End Date Susan Yañez [address] [place] [address] PCP - General Family Practice 08/10/21 Susan Yañez [address] [place] [address] Referring Family Practice 04/28/21 Jefry Chang [address] [place] [address] Referring Ophthalmology 05/25/21 Senior Construction Estimator Relationship Specialty Start Date End Date Susan Yañez [address] [place] [address] PCP - General Family Practice 08/10/21 Susan Yañez [address] [place] [address] Referring Family Practice 04/28/21 Jefry Chang [address] [place] [address] Referring Ophthalmology 05/25/21 Senior Construction Estimator Relationship Specialty Start Date End Date Susan Yañez [address] [place] [address] PCP - General Family Medicine 08/10/21 Susan Yañez [address] [place] [address] Referring Family Medicine 04/28/21 Jefry Chang [address] [place] [address] Referring Ophthalmology 05/25/21 Senior Construction Estimator Relationship Specialty Start Date End Date Susan Yañez [address] [place] [address] PCP - General Family Medicine 08/10/21 Susan Yañez [address] [place] [address] Referring Family Medicine 04/28/21 Jefry Chang [address] [place] [address] Referring Ophthalmology 05/25/21 Senior Construction Estimator Relationship Specialty Start Date End Date Susan Yañez [address] [place] [address] PCP - General Family Medicine 08/10/21 Susan Yañez [address] [facility] [address] [place] [address] Referring Family Medicine 04/28/21 Jefry Chang [address] [place] [address] Referring Ophthalmology 05/25/21 Senior Construction Estimator Relationship Specialty Start Date End Date Susan Yañez [address] [place] [address] PCP - General Family Medicine 08/10/21 Susan Yañez [address] [place] [address] Referring Family Medicine 04/28/21 Jefry Chang [address] [place] [address] Referring Ophthalmology 05/25/21 Senior Construction Estimator Relationship Specialty Start Date End Date Susan Yañez [address] [place] [address] PCP - General Family Medicine 08/10/21 Susan Yañez Ededwin [address] [place] [address] Referring Family Medicine 04/28/21 Jefry Chang [address] [place] [address] Referring Ophthalmology 05/25/21 Senior Construction Estimator Relationship Specialty Start Date End Date Isabelgeorgia Susan Mueller [address] [place] [address] PCP - General Family Medicine 08/10/21 Susan Yañez [address] [facility] [address] [place] [address] Referring Family Medicine 04/28/21 Jefry Chang [address] [place] [address] Referring Ophthalmology 05/25/21 FOR RECORDS PERTAINING TO PATIENTS WHO ARE OR HAVE BEEN ENROLLED IN A CHEMICAL DEPENDENCY/SUBSTANCEABUSE PROGRAM, SOME INFORMATION MAY BE OMITTED. This clinical summary was aggregated from multiple sources. Caution should be exercised in using it in the provision of clinical care. This summary normalizes information from multiple sources, and as a consequence, information in this document may materially change the coding, format and clinical context of patient data. In addition, data may be omitted in some cases. CLINICAL DECISIONS SHOULD BE BASED ON THE PRIMARY CLINICAL RECORDS. [facility]. provides no warranty or guarantee of the accuracy or completeness of information in this document.
== END | disposition home or self-care (01) ==
PROVIDERS: PCP Family Medicine; Referring Provider Family Medicine; Visit Provider Family Medicine
DX: J20.9 Acute bronchitis, unspecified (principal)
CPT/HCPCS: 71046

== ENCOUNTER → 2024-02-14 | Outpatient (CLI) | payer SELFPAY ==
[2024-02-14 12:21] LABS: Mucous, Urine 0 SEEN /hpf (<or=2+); Red Blood Cells-Urine 0 SEEN /hpf (0-5)
[2024-02-14 15:21] LABS: Absolute Lymphocyte Count 2.08 X10^3/uL (0.83-4.51); Absolute Neutrophil Count 2.1 X10^3/uL (2.0-7.7); Basophil# 0.03 X10^3/uL; Basophil% 0.6 % (0-1); Eosinophil# 0.06 X10^3/uL; Eosinophils% 1.3 % (0-5); Hematocrit 38.8 % (37-47); Hemoglobin 12.4 g/dL (12.0-15.0); Lymphocyte # 2.08 X10^3/ul (0.83-4.51); Lymphocyte % 43.3 % (19-41); Mean Corpuscular Hgb 29.9 pg (27.0-32.0); Mean Corpuscular Volume 93.5 fL (81-99); Mean Platelet Vol. 9.6 fl (6.2-12.0); Monocyte# 0.58 X10^3/uL; Monocyte% 12.1 % (0-10); NRBC Flagged by Analyzer 0 % (0-5); Neutrophil # 2.05 X10^3/uL (2.7-7.7); Neutrophil % 42.7 % (47-70); Platelet Count 280 K/mm3 (150-450); RBC Distribution Width CV 14.6 % (11.6-14.6); RBC Distribution Width SD 50.4 fl (35.1-43.9); Red Blood Count 4.15 M/mm3 (4.2-5.4); White Blood Count 4.8 K/mm3 (4.4-11.0)
[2024-02-14 15:39] LABS: Color, Urine Yellow (Yellow); Glucose, Dipstick Normal (Normal); Ketone-Dipstick 5 mg/dl (Negative); Leukocyte Esterase-Dipstick 500 /ul (Negative); Nitrite-Dipstick Negative (Negative); Occult Blood-Urine 10 /ul (Negative); Protein-Dipstick 30 mg/dl (Negative); Specific Gravity, Urine 1.015 (1.002-1.030); Urine Clarity Sl. Cloudy (Clear); Urine Urobilinogen 1 mg/dl (Normal)
[2024-02-14 15:54] LABS: Vitamin B12 595 pg/mL (211-911)
[2024-02-14 16:03] LABS: Urine Bilirubin Dipstick 1 mg/dL (Negative)
[2024-02-14 16:07] LABS: Squamous Epithelial Cells - UA 10-25 SEEN /hpf (5-10); White Blood Cells 5-10 SEEN /hpf (0-5)
[2024-02-14 16:08] LABS: Bacteria 1+ /hpf (None Seen)
[2024-02-14 16:11] LABS: Protein, Urine (Random) 56.4 mg/dL (<11.9); Protein:Creat Ratio 154 mg/g CRE (0-200)
[2024-02-14 16:13] LABS: PTHIN 106.2 pg/mL (18.4-80.1)
[2024-02-14 16:17] LABS: ALB/GLOB Ratio 0.8 RATIO (0.9-2.4); AST(SGOT) 23 U/L (15-37); Alanine Aminotransfer ALT/SGPT 23 U/L (13-56); Albumin, Serum 3.2 g/dL (3.2-5.0); Alkaline Phosphatase 107 U/L (45-117); Anion Gap 6 (5-15); BUN 20 mg/dL (7-18); BUN/Creat Ratio 11.2 RATIO (10-20); Calcium,Total 9.2 mg/dL (8.5-10.1); Chloride 110 mmol/L (98-107); Cholesterol 244 mg/dL (200); Creatinine, Serum 1.79 mg/dL (0.55-1.02); EST Glomerular Filtration Rate 29 mL/min (>60); Est Glom Filt Rate - Afr Amer 35 mL/min (>60); Ferritin 68 ng/mL (8-252); Globulin 3.9 g/dL (2.2-4.2); Glucose 70 mg/dL (74-106); High Density Lipoprotein 73 mg/dL; Iron 70 ug/dL (50-170); Iron Binding Capacity,Total 317 ug/dL (250-450); Phosphorus 3.1 mg/dL (2.5-4.9); Potassium 4.3 mmol/L (3.5-5.1); Protein, Total 7.1 g/dL (6.4-8.2); Sodium Level 141 mmol/L (136-145); Thyroid Stim Hormone (TSH) 4.01 uIU/mL (0.358-3.74); Triglycerides 108 mg/dL; Very Low Density Lipoprotein 22 mg/dL (5-40)
== END | disposition home or self-care (01) ==
LOC: MFPLAB 12:18
PROVIDERS: PCP Family Medicine; Visit Provider Family Medicine
DX: I12.9 Hypertensive chronic kidney disease with stage 1 through stage 4 chronic kidney disease, or unspecified chronic kidney disease (principal); N18.30 Chronic kidney disease, stage 3 unspecified; D63.8 Anemia in other chronic diseases classified elsewhere; E78.00 Pure hypercholesterolemia, unspecified
CPT/HCPCS: 36415; 80053; 80061; 81001; 82570; 82607; 82728; 82746; 83540; 83550; 83970; 84100; 84156; 84443; 85025

== ENCOUNTER → 2024-02-23 | Outpatient (CLI) | payer SELFPAY ==
[2024-02-25 18:07] LABS: Thyroglobulin Antibody 6.6 IU/mL (0.0-0.9); Thyroid Peroxidase AB 82 IU/mL (0-34)
== END | disposition home or self-care (01) ==
LOC: MFPLAB 15:03
PROVIDERS: PCP Family Medicine; Visit Provider Family Medicine
DX: R94.6 Abnormal results of thyroid function studies (principal)
CPT/HCPCS: 36415; 86376; 86800

== ENCOUNTER → 2024-11-02 | Outpatient (CLI) | payer MEDICARE, SELFPAY ==
[2024-11-02 12:18] LABS: Absolute Lymphocyte Count 2.05 X10^3/uL (0.83-4.51); Absolute Neutrophil Count 1.6 X10^3/uL (2.0-7.7); Basophil# 0.03 X10^3/uL; Basophil% 0.7 % (0-1); Eosinophil# 0.08 X10^3/uL; Eosinophils% 1.9 % (0-5); Hematocrit 36.7 % (37-47); Hemoglobin 11.7 g/dL (12.0-15.0); Lymphocyte # 2.05 X10^3/ul (0.83-4.51); Lymphocyte % 49.8 % (19-41); Mean Corp Hgb Conc 31.9 g/dL (32-36); Mean Corpuscular Volume 94.1 fL (81-99); Mean Platelet Vol. 9.6 fl (6.2-12.0); Monocyte# 0.33 X10^3/uL; NRBC Flagged by Analyzer 0 % (0-5); Neutrophil # 1.62 X10^3/uL (2.7-7.7); Neutrophil % 39.4 % (47-70); Platelet Count 230 K/mm3 (150-450); RBC Distribution Width CV 13.8 % (11.6-14.6); RBC Distribution Width SD 47.6 fl (35.1-43.9); White Blood Count 4.1 K/mm3 (4.4-11.0)
[2024-11-02 12:34] LABS: Vitamin B12 613 pg/mL (211-911); Vitamin D,25 Hydroxy 31.9 ng/mL
[2024-11-02 12:51] LABS: ALB/GLOB Ratio 0.8 RATIO (0.9-2.4); AST(SGOT) 17 U/L (15-37); Alanine Aminotransfer ALT/SGPT 16 U/L (13-56); Alkaline Phosphatase 101 U/L (45-117); Anion Gap 5 (5-15); BUN 21 mg/dL (7-18); BUN/Creat Ratio 13.1 RATIO (10-20); Calcium,Total 9.1 mg/dL (8.5-10.1); Chloride 111 mmol/L (98-107); Cholesterol 198 mg/dL (200); EST Glomerular Filtration Rate 33 mL/min (>60); Est Glom Filt Rate - Afr Amer 40 mL/min (>60); Ferritin 79 ng/mL (8-252); Globulin 3.8 g/dL (2.2-4.2); Glucose 94 mg/dL (74-106); High Density Lipoprotein 70 mg/dL; Iron 64 ug/dL (50-170); Iron Binding Capacity,Total 239 ug/dL (250-450); Phosphorus 3.4 mg/dL (2.5-4.9); Potassium 3.8 mmol/L (3.5-5.1); Protein, Total 6.8 g/dL (6.4-8.2); Sodium Level 142 mmol/L (136-145); T4 Free Direct 0.84 ng/dL (0.76-1.46); Triglycerides 79 mg/dL; Very Low Density Lipoprotein 16 mg/dL (5-40)
== END | disposition home or self-care (01) ==
PROVIDERS: PCP Family Medicine; Referring Provider Family Medicine; Visit Provider Family Medicine
DX: E78.00 Pure hypercholesterolemia, unspecified (principal); N18.30 Chronic kidney disease, stage 3 unspecified; E06.3 Autoimmune thyroiditis; D63.8 Anemia in other chronic diseases classified elsewhere; I12.9 Hypertensive chronic kidney disease with stage 1 through stage 4 chronic kidney disease, or unspecified chronic kidney disease
CPT/HCPCS: 36415; 80053; 80061; 82306; 82607; 82728; 82746; 83540; 83550; 83970; 84100; 84439; 84443; 85025

== ENCOUNTER → 2025-02-19 | Outpatient (CLI) | payer MEDICARE, SELFPAY ==
[2025-02-19 15:00] LABS: Absolute Lymphocyte Count 2.78 X10^3/uL (0.83-4.51); Absolute Neutrophil Count 1.7 X10^3/uL (2.0-7.7); Basophil# 0.04 X10^3/uL; Basophil% 0.8 % (0-1); Eosinophil# 0.06 X10^3/uL; Eosinophils% 1.2 % (0-5); Hemoglobin 11.7 g/dL (12.0-15.0); Lymphocyte # 2.78 X10^3/ul (0.83-4.51); Lymphocyte % 54.1 % (19-41); Mean Corp Hgb Conc 31.6 g/dL (32-36); Mean Corpuscular Hgb 29.8 pg (27.0-32.0); Mean Corpuscular Volume 94.4 fL (81-99); Mean Platelet Vol. 9.7 fl (6.2-12.0); Monocyte# 0.51 X10^3/uL; Monocyte% 9.9 % (0-10); NRBC Flagged by Analyzer 0 % (0-5); Neutrophil # 1.74 X10^3/uL (2.7-7.7); Neutrophil % 33.8 % (47-70); Platelet Count 241 K/mm3 (150-450); RBC Distribution Width SD 48.3 fl (35.1-43.9); Red Blood Count 3.92 M/mm3 (4.2-5.4); White Blood Count 5.1 K/mm3 (4.4-11.0)
[2025-02-19 15:19] LABS: PTHIN 83 pg/mL (11-61)
[2025-02-19 15:35] LABS: ALB/GLOB Ratio 1.2 RATIO (0.9-2.4); AST(SGOT) 22 U/L (<=31); Alanine Aminotransfer ALT/SGPT 11 U/L (<=34); Albumin, Serum 3.7 g/dL (3.4-4.8); Alkaline Phosphatase 108 U/L (35-104); Anion Gap 13 (5-15); BUN 18 mg/dL (4-19); BUN/Creat Ratio 11.8 RATIO (10-20); Calcium,Total 9.1 mg/dL (7.6-11.0); Carbon Dioxide 22.7 mmol/L (21.0-32.0); Chloride 106 mmol/L (98-108); Cholesterol 184 mg/dL (<=200); Creatinine, Serum 1.52 mg/dL (0.70-1.20); EST Glomerular Filtration Rate 34 (>60); Globulin 3.1 g/dL (2.2-4.2); Glucose 51 mg/dL (70-99); High Density Lipoprotein 79 mg/dL; Low Density Lipoprotein Calc. 93 mg/dL; Magnesium 2.1 mg/dL (1.5-2.2); Phosphorus 3.2 mg/dL (2.7-4.5); Potassium 3.6 mmol/L (3.3-5.1); Protein, Total 6.8 g/dL (5.9-8.4); Sodium Level 142 mmol/L (133-145); Total Bilirubin 0.31 mg/dL (0.00-1.30); Triglycerides 60 mg/dL; Very Low Density Lipoprotein 12 mg/dL (5-40); Vitamin D,25 Hydroxy 24.8 ng/mL (30-100); cholesterol:hdl ratio screen 2.32
== END | disposition home or self-care (01) ==
PROVIDERS: PCP Family Medicine; Referring Provider Family Medicine; Visit Provider Family Medicine
DX: E78.00 Pure hypercholesterolemia, unspecified (principal); N18.30 Chronic kidney disease, stage 3 unspecified; E21.3 Hyperparathyroidism, unspecified; I12.9 Hypertensive chronic kidney disease with stage 1 through stage 4 chronic kidney disease, or unspecified chronic kidney disease
CPT/HCPCS: 36415; 80053; 80061; 82306; 83735; 83970; 84100; 85025

== ENCOUNTER 2025-03-08 16:33 | Emergency (ER) | payer MEDICAID, MEDICARE, SELFPAY ==
[2025-03-08 16:35] VITALS: BP 172/102; PULSE 89; RESP 16; TEMP 37; O2SAT 99; BMI 34.2
--- NOTE | 2025-03-08 16:56 | CT_ITS ---
PROCEDURE: SOFT TISSUE NECK W/WO CONTRAST 03/08/2025 REASON FOR EXAM: LEFT PAROTID SWELLING TECHNIQUE: CT of the soft tissues of the neck from the orbits to the upper mediastinum with intravenous contrast. One or more dose reduction techniques were used (e.g., Automated exposure control, adjustment of the mA and/or kV according to patient size, use of iterative reconstruction technique). FINDINGS: Airway: Midline and patent. Salivary glands: Enlargement of the left parotid gland with some ill-defined margins suggestive of parotitis. No loculated fluid collection to suggest abscess. Lymph nodes: No cervical lymphadenopathy. Thyroid: Unremarkable. Vasculature: Carotid arteries and internal jugular veins are unremarkable. Orbits: Unremarkable at visualized levels. Paranasal sinuses and mastoids: Grossly clear at visualized levels. Lung apices: Clear. Upper mediastinum: Visualized mediastinum is unremarkable. Bones: Unremarkable. Other: CT/Soft Tissue Neck W/WO Contrast IMPRESSION: Suspect left parotitis. No abscess. Reading Location: [id number]
--- NOTE | 2025-03-08 16:58 | EX.ED.DYSGE1 ---
HPI History of Present Illness Chief Complaint: Edema Narrative Narrative: 79-year-old female past medical history of hypertension hypercholesterolemia presents with a left facial swelling that began today. She states yesterday everything was fine. She attends an adult day center, where they asked her what was wrong with her left cheek. They noticed it was more swollen. She states that it felt a little achy this morning, but has progressively gotten worse throughout the day. She denies any fevers or chills. No dry mouth. No exacerbating or alleviating factors. No difficulty swallowing or breathing. She states is not her neck that swollen it is more right in front of her ear and in her left cheek. [facility] Medical History High cholesterol Hypertension Home Medications ?Medication ?Instructions ?Recorded ?Last Taken ?Type verapamil 360 mg 24 hr 360 mg PO DAILY bp 07/16/16 10/31/20 History capsule,extended release atorvastatin 20 mg tablet 20 mg PO QHS 07/11/18 Unknown History albuterol sulfate 90 mcg/actuation 2 puff inhalation Q4H PRN PRN 10/03/19 Unknown Rx aerosol inhaler Wheezing ##1 amoxicillin 875 mg-potassium 1 tab PO BID #14 tabs 03/08/25 Unknown Rx clavulanate 125 mg tablet Allergy/AdvReac Type Severity Reaction Status Date / Time codeine AdvReac Nausea Verified 03/08/25 16:38 latex AdvReac Rash Verified 03/08/25 16:38 tramadol (From Ultram) AdvReac Itching Verified 03/08/25 16:38 Surgical History h/o right hand surgery H/O left knee replacement h/o left shoulder arthroscopy H/O arthroscopy of left knee Social History Smoking Status: Never smoker ROS ROS ED ROS Narrative Review of systems positive for left cheek swelling with mild amount of pain. No fevers or chills. No redness to the area. No nausea or vomiting. No difficulty swallowing or breathing. EXAM Physical Exam Narrative Exam Narrative: Afebrile. Vital signs noted. Nontoxic-appearing. Cardiovascular examination reveals a regular rate and rhythm. Lungs are clear to auscultation bilaterally. Abdomen soft and nontender without guarding or rebound. Positive bowel sounds. Neurological examination nonfocal, nonlateralizing. HEENT examination reveals mild swelling in the left parotid gland area without noted erythema or fluctuance. She is edentulous in the left lower jaw. Neck is soft and supple without meningismus. No stridor. No William angina or angioedema of mouth. Airway patent. No drooling or trismus. Const Vital Signs: 03/08/25 16:35 03/08/25 17:17 03/08/25 18:22 Temperature 98.6 F Temperature Source Oral Pulse Rate 89 75 Respiratory Rate 16 14 Respiratory Effort Normal Respiratory Pattern Normal Blood Pressure 172/102 H 142/68 H Blood Pressure Mean 125 92 Pulse Ox 99 97 Oxygen Delivery Method Room Air Room Air MDM MDM MDM Narrative Medical decision making narrative: The differential diagnosis includes but not limited to infectious parotitis versus parotid gland abscess versus parotid gland stone. I will obtain basic laboratory work and CT imaging. In discussion with the radiology services manager, it is preferred that she have CT of the soft tissue neck with and without contrast. I reviewed her laboratory work and she has normal white count of 5.9 with hemoglobin 12.2, hematocrit 37.2, platelet count normal at 244. Electrolyte panel shows BUN of 17 with creatinine 1.86. Glucose slightly elevated at 121. I reviewed the radiology report of the CT scans and she has an acute parotitis but no evidence of abscess or stone. She was given her first dose of Augmentin here in the emergency department and prescription written for the next week. This was after discussion with Dr. Cummings with otolaryngology. She will drink plenty of oral fluids and continue sialagogues such as lemon heads or other sour candies. Return instructions to the emergency department were reviewed. Disposition is discharged home in stable condition. History & Record Review Discussion w/independent historian: Patient and Family Lab Data Attestation: I reviewed the patient's lab results. Labs: Laboratory Results - last 24 hr 03/08/25 17:03 WBC 5.9 RBC 4.01 L Hgb 12.2 Hct 37.2 MCV 92.8 MCH 30.4 MCHC 32.8 RDW Std Deviation 47.2 H RDW Coeff of Quique 13.7 Plt Count 244 MPV 9.1 Immature Gran % (Auto) 0.200 Neut % (Auto) 41.7 L Lymph % (Auto) 49.5 H Finney % (Auto) 7.2 Eos % (Auto) 0.9 Baso % (Auto) 0.5 Absolute Neuts (auto) 2.5 Absolute Lymphs (auto) 2.90 Nucleated RBC % 0 Sodium 140 Potassium 4.1 Chloride 104 Carbon Dioxide 25.0 Anion Gap 11 BUN 17 Creatinine 1.86 H Estim Creat Clear Calc 24.91 L Est GFR (MDRD) Non-Af 27 L BUN/Creatinine Ratio 8.9 L Glucose 121 H Calcium 9.2 Radiography Diagnostic Testing: Clinical Impression(s) from Imaging Studies Soft Tissue Neck CT 03/08/25 16:56 IMPRESSION: Suspect left parotitis. No abscess. Reading Location: [facility] Discharge Plan Triage Chief Complaint: Edema ED Provider: Drew Liz Dx/Rx/DC Orders Clinical Impression: Parotid gland enlargement, Acute parotitis Instructions: ED Salivary Gland Infection Prescriptions: New amoxicillin-pot clavulanate 875-125 mg tablet 1 tab PO BID Qty: 14 0RF No Action verapamil 360 MG capsule,ext rel. pellets 24 hr 360 mg PO DAILY Patient Comments: BP atorvastatin 20 MG tablet 20 mg PO QHS albuterol sulfate 1 INHALER inhaler 2 puff INHALATION Q4H PRN PRN (Reason: Wheezing) Qty: 1 0RF Primary Care Provider: Lazaro Yañez Referrals: Ji Cummings MD [Med Staff - Active Staff] - 5-7 Days Lazaro Yañez MD [Primary Care Provider] - Activity Restrictions/Additional Instructions: Antibiotics as directed. Bring plenty of oral fluids and use sialagogues/sour candies to produce more saliva. Follow-up with ENT in 5 to 7 days. Return to the emergency department with fever, increased swelling or redness to your left cheek, new or worsening symptoms. Print Language: Guatemalan Disposition Disposition: Home, Self Care
[2025-03-08 17:18] LABS: Absolute Neutrophil Count 2.5 X10^3/uL (2.0-7.7); Basophil# 0.03 X10^3/uL; Basophil% 0.5 % (0-1); Eosinophil# 0.05 X10^3/uL; Eosinophils% 0.9 % (0-5); Hematocrit 37.2 % (37-47); Hemoglobin 12.2 g/dL (12.0-15.0); Lymphocyte % 49.5 % (19-41); Mean Corp Hgb Conc 32.8 g/dL (32-36); Mean Corpuscular Hgb 30.4 pg (27.0-32.0); Mean Corpuscular Volume 92.8 fL (81-99); Mean Platelet Vol. 9.1 fl (6.2-12.0); Monocyte# 0.42 X10^3/uL; Monocyte% 7.2 % (0-10); NRBC Flagged by Analyzer 0 % (0-5); Neutrophil # 2.45 X10^3/uL (2.7-7.7); Neutrophil % 41.7 % (47-70); Platelet Count 244 K/mm3 (150-450); RBC Distribution Width CV 13.7 % (11.6-14.6); RBC Distribution Width SD 47.2 fl (35.1-43.9); Red Blood Count 4.01 M/mm3 (4.2-5.4); White Blood Count 5.9 K/mm3 (4.4-11.0)
[2025-03-08 17:43] LABS: Anion Gap 11 (5-15); BUN 17 mg/dL (4-19); BUN/Creat Ratio 8.9 RATIO (10-20); Calcium,Total 9.2 mg/dL (7.6-11.0); Chloride 104 mmol/L (98-108); Creatinine, Serum 1.86 mg/dL (0.70-1.20); EST Glomerular Filtration Rate 27 (>60); Estimated Creatinine Clearance 24.91 ml/min (50-250); Glucose 121 mg/dL (70-99); Potassium 4.1 mmol/L (3.3-5.1); Sodium Level 140 mmol/L (133-145)
[2025-03-08 18:22] VITALS: BP 142/68; PULSE 75; RESP 14; O2SAT 97
[2025-03-08] MEDS: Amox/Clavulanate 875 MG Tablet PO (19:15)
[2025-03-08 19:19] VITALS: BP 138/96; PULSE 74; RESP 14; O2SAT 98
== END 2025-03-08 19:20 | disposition home or self-care (01) ==
PROVIDERS: Emergency Provider Emergency Medicine; PCP Family Medicine; Visit Provider Emergency Medicine
DX: K11.21 Acute sialoadenitis (principal); E78.00 Pure hypercholesterolemia, unspecified; R73.9 Hyperglycemia, unspecified; I10 Essential (primary) hypertension
CPT/HCPCS: 70492; 80048; 85025; 99282; Q9967; A4216

== ENCOUNTER 2025-06-19 20:28 | Emergency (ER) | payer MEDICARE, MEDICAID, SELFPAY ==
[2025-06-19 20:29] VITALS: BP 178/83; PULSE 84; RESP 18; TEMP 36.4; O2SAT 100; BMI 32.2
[2025-06-19 21:15] LABS: Mucous, Urine 0 SEEN /hpf (<or=2+)
[2025-06-19 21:19] LABS: Color, Urine Straw (Yellow); Glucose, Dipstick Normal (Normal); Ketone-Dipstick Negative (Negative); Leukocyte Esterase-Dipstick 500 /ul (Negative); Nitrite-Dipstick Negative (Negative); Occult Blood-Urine Negative /ul (Negative); Protein-Dipstick 30 mg/dl (Negative); Specific Gravity, Urine 1.010 (1.002-1.030); Urine Bilirubin Dipstick Negative (Negative)
--- NOTE | 2025-06-19 21:19 | EX.ED.DYSGE1 ---
HPI History of Present Illness Chief Complaint: Edema Detail of Chief Complaint: Swelling distal right and left leg and feet Informant: patient and family Onset/Context/Timing Onset: Days (2 days ago) Context: Sudden Onset Timing: Continuous and Waxes and wanes Quality: Worse at night better in the morning upon rising Location: Feet and distal right and left leg Current Severity: Mild Maximum Severity: Mild Worsened by: Patient apparently was at a facility it was sitting quite a bit the last 4 Relieved by: Better in the morning Associated Symptoms Associated Symptoms: No cardiovascular or respiratory symptoms Narrative Narrative: Patient is an 79-year-old woman with history of hypertension, glaucoma and hypercholesterolemia. She presents because of swelling of her feet and distal right and left leg. Initially the left side was worse. The swelling is worse at night. It is better in the morning upon rising. She has been sitting more the last several days. She denies orthopnea or PND. She denies chest pressure, tightness, heaviness or any type of discomfort with activity. She denies dyspnea or dyspnea on exertion. She denies orthopnea or PND. She denies history of liver disease or kidney disease. She has an estimated GFR between 25 and 35. Her most recent creatinine is 1.86 on March 08, 2025. BUN at that time was normal. Furthermore, the electrolytes were normal. Prior similar symptoms: No Recent Illness/Hospitalization: No [facility] Medical History High cholesterol Hypertension Home Medications ?Medication ?Instructions ?Recorded ?Last Taken ?Type verapamil 360 mg 24 hr 360 mg PO DAILY bp 07/16/16 10/31/20 History capsule,extended release atorvastatin 20 mg tablet 20 mg PO QHS 07/11/18 Unknown History albuterol sulfate 90 mcg/actuation 2 puff inhalation Q4H PRN PRN 10/03/19 Unknown Rx aerosol inhaler Wheezing ##1 donepezil 5 mg tablet 5 mg PO DAILY 06/19/25 Unknown History latanoprost 0.005 % eye drops drp ophthalmic (eye) 06/19/25 Unknown History Allergy/AdvReac Type Severity Reaction Status Date / Time codeine AdvReac Nausea Verified 06/19/25 20:29 latex AdvReac Rash Verified 06/19/25 20:29 tramadol (From Ultram) AdvReac Itching Verified 06/19/25 20:29 Surgical History h/o right hand surgery H/O left knee replacement h/o left shoulder arthroscopy H/O arthroscopy of left knee Social History Smoking Status: Never smoker ROS ROS ED Eyes Eyes: Denies blurry vision or change in vision ENT ENT ED: Denies rhinorrhea or sore throat Cardiovascular Cardiovascular: Denies chest pain, orthopnea, palpitations or paroxysmal nocturnal dyspnea Respiratory/Chest Respiratory/Chest: Denies cough, dyspnea, dyspnea on exertion, orthopnea or paroxysmal nocturnal dyspnea Gastrointestinal Gastrointestinal: Denies abdominal pain, nausea or vomiting Genitourinary Genitourinary ED: Reports other Details: Denies decreased or increased urine output ; Denies dysuria, hematuria or urinary frequency Musculoskeletal Musculoskeletal: Denies arthralgias, back pain or myalgias Integumentary Denies abscess, Abrasions or rash Neurologic Neurologic: Denies headache(s), paresthesias or weakness Hematologic/Lymphatic Hematologic/Lymphatic: Reports systems reviewed and no addt'l complaints, except as documented EXAM Physical Exam Const Vital Signs: 06/19/25 20:29 06/19/25 21:02 Temperature 97.5 F L Temperature Source Temporal Pulse Rate 84 Respiratory Rate 18 Respiratory Effort Normal Respiratory Pattern Normal Blood Pressure 178/83 H Blood Pressure Mean 114 Pulse Ox 100 Oxygen Delivery Method Room Air Positive well nourished and well developed Constitutional Narrative: BMI is 32.2. Blood pressure slightly elevated. General Appearance ED: well developed and NAD; Negative for pallor HEENT Reports moist mucous membranes HEENT Narrative: Head is atraumatic and normocephalic. Ears normal. Nares patent. Uvula midline. No deviation of tongue with protrusion. Eyes PERRL and EOMs intact bilaterally General Eye ED: Negative for pale conjunctiva or scleral icterus Neck no lymphadenopathy, supple and no JVD Chest Wall inspection of chest normal and palpation of chest normal Resp normal respiratory effort and clear to auscultation bilaterally Cardio regular rate, regular rhythm, S1 normal heart sound, S2 normal heart sound and no murmurs GI normal to inspection, nondistended, normoactive bowel sounds, non-tender, non-distended and no masses; Negative for hepatosplenomegaly Back/Spine no CVA tenderness Extremity Extremity Narrative: Edema of the distal right and left leg and feet. Spitting. 1+. DP pulses palpable bilaterally. 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 Since she does have history of renal disease we will obtain electrolyte panel to assess renal function as well as help BUN and total protein. If there is no significant change we will treat for dependent lymphedema. Since patient had no respiratory symptoms or oscillatory findings chest x-ray was not obtained. Since patient has no cardiac symptoms EKG was not obtained. Lab Data Attestation: I reviewed the patient's lab results. Lab results narrative: Competence of metabolic panel was a BUN/creatinine of 17 and 1.40. This is an improvement from prior. Estimated GFR is 38. Urinalysis reveals proteinuria without hematuria. There is no evidence of infection on the micro. Suspect patient's bilateral lymphedema is due to decreased activity, dependent lymphedema. Therefore, plan will discharge to home Labs: Laboratory Results - last 24 hr 06/19/25 20:38 Sodium 140 Potassium 3.8 Chloride 105 Carbon Dioxide 24.6 Anion Gap 10 BUN 17 Creatinine 1.40 H Estim Creat Clear Calc 32.07 L Est GFR (MDRD) Non-Af 38 L BUN/Creatinine Ratio 12.0 Glucose 88 Calcium 9.0 Total Bilirubin 0.31 AST 20 ALT 9 Alkaline Phosphatase 95 Total Protein 6.5 Albumin 3.7 Globulin 2.8 Albumin/Globulin Ratio 1.3 Urine Color Straw Urine Clarity Clear Urine pH 7.0 Ur Specific [place] 1.010 Urine Protein 30 H Urine Glucose (UA) Normal Urine Ketones Negative Urine Occult Blood Negative Urine Nitrite Negative Urine Bilirubin Negative Urine Urobilinogen Normal Ur Leukocyte Esterase 500 H Urine RBC 0-5 SEEN Urine WBC 0 SEEN Ur Squamous Epith Cells 0-5 SEEN Urine Bacteria 0 SEEN Urine Mucus 0 SEEN Discharge Plan Triage Chief Complaint: Edema ED Provider: Franc Mina Dx/Rx/DC Orders Clinical Impression: Dependent lymphedema, Benign essential hypertension, Isolated proteinuria, Chronic kidney disease Instructions: ED Peripheral Edema, Bilateral Prescriptions: No Action verapamil 360 MG capsule,ext rel. pellets 24 hr 360 mg PO DAILY Patient Comments: BP atorvastatin 20 MG tablet 20 mg PO QHS albuterol sulfate 1 INHALER inhaler 2 puff INHALATION Q4H PRN PRN (Reason: Wheezing) Qty: 1 0RF latanoprost 0.005 % drops ophthalmic (eye) donepezil 5 mg tablet 5 mg PO DAILY Primary Care Provider: Lazaro Yañez Referrals: Lazaro Yañez MD [Primary Care Provider] - 1 Week if not improving Activity Restrictions/Additional Instructions: Recommend when you are sitting to elevate your feet. He will need to elevate your feet above the level of your heart. Recommend putting a brick or 2 at the foot of your bed to help decrease the swelling. Print Language: Macedonian Disposition Disposition: Home, Self Care
--- OUTSIDE RECORDS SUMMARY | 2025-06-19 21:37 | XMS RPT_ITS | CCD ---
Author Organization [facility] Care Team Providers Care Disability Liaison Officer Name Role Phone Carolina Wade N Unavailable Berna Wadeica N Unavailable Berna Wadeica N Unavailable Derek Vazquez Unavailable Kristopher Mendoza LPNa S Unavailable Mendoza TOUR ESCORT, Ruchi S Unavailable Carolina Wade N Unavailable Wade, Carolina N Unavailable Sonja Ha MD Unavailable [phone] Mauro Carolina N Unavailable Susan Yañez Unavailable Jefry Chang Unavailable Susan Yañez Primary Care Provider [phone] Dr. Susan Yañez Primary Care Provider [phone] Dr. Susan Yañez Referring Provider Dr. Christopher Duron Attending Provider Susan Moise MD Primary Care Provider Jefry Chang Unavailable Susan Yañez Unavailable Jefry Chang Unavailable Susan Yañez Primary Care Provider Susan Yañez Unavailable [phone] Jefry Chang Unavailable Susan Yañez Primary Care Provider [phone] Susan Yañez Unavailable [phone] Jefry Chang Unavailable Susan Yañez Primary Care Provider Dr. Susan Yañez Primary Care Provider [phone] Dr. Susan Yañez Referring Provider Dr. Sudeep Randall Attending Provider Dr. Junito Alston Attending Provider Susan Yañez MD Unavailable Susan Yañez MD Primary Care Provider FLORENCE FINLEY Attending Unavailab le SUSAN YAÑEZ Primary Care Unavailable SUSAN YAÑEZ Primary Care Unavailable JESSICA ROQUE Referring Unavailable Dr. Susan Yañez MD Primary Care Provider Dr. Susan Yañez MD Attending Provider Dr. Susan Yañez MD Referring Provider Dr. Susan Yañez MD Primary Care Provider Dr. Susan Yañez MD Attending Provider Dr. Susan Yañez MD Referring Provider Drew Liz MD Emergency Provider Susan Yañez Primary Care Unavailable Drew Liz Attending Unavailable Susan Yañez Primary Care Unavailable Marifer Brady Attending Unavailable Susan Yañez Attending Unavailable Susan Yañez Referring Unavailable Susan Yañez Primary Care Unavailable Susan Yañez Attending Unavailable Susan Yañez Referring Unavailable Susan Yañez Primary Care Unavailable Allergies Allergy Classification Reported Allergen(s) Allergy Type Date of Onset Reaction(s) Facility (1 source) codeine Drug Allergy 8 nausea and shaking [facility] Work Phone: (20 sources) Codeine; Translations: [CODEINE] Drug Allergy 6 Hives, GI Upset, Itching, Other: See Comments [facility] (20 sources) Latex; Translations: [LATEX] Propensity to adverse reactions 6 Rash [facility] Work Phone: Comment on above: tape causes blisters (20 sources) traMADol; Translations: [TRAMADOL] Drug Allergy 9 Itching [facility] (20 sources) Adhesive Tape-Silicones; Translations: [ADHESIVE TAPE-SILICONES] Propensity to adverse reactions to drug 0 Unknown [facility] (1 source) Codeine Drug Allergy 5 [facility] (1 source) Latex Drug allergy (disorder) 5 [facility] (1 source) traMADol Drug Allergy 5 [facility] Medications Current Medications Medication Drug Class(es) Dates Sig (Normalized) Sig (Original) [id number] actuat albuterol 0.09 mg/actuat metered dose inhaler (15 sources) beta2-Adrenergic Agonist Start: 10-03-2019 Albuterol Sulfate 1 INHALER inhaler Active 2 NMA INHALATION EVERY 4 HOURS NEEDED as needed for Wheezing October 03, 2019 1:00am Start: 10-03-2019 take 1 puff(s) by in halation every four hours as needed Albuterol Sulfate Active 2 PUFF INHALATION EVERY 4 HOURS NEEDED October 03, 2019 1:00am amoxicillin 875 mg / clavulanate 125 mg oral tablet (16 sources) Penicillin-class Antibacterial Start: 03-08-2025 Amoxicillin-Pot Clavulanate 875-125 mg tablet Active 1 {tbl} PO TWICE A DAY March 08, 2025 12:00am Start: 08-14-2017 End: 01-25-2018 Amoxicillin-Pot Clavulanate 1 EACH tablet Discontinued 1 NMA PO TWICE A DAY August 14, 2017 12:00am January 25, 2018 2:23pm Start: 08-14-2017 End: 01-25-2018 Amoxicillin-Pot Clavulanate Discontinued 1 EACH PO TWICE A DAY August 14, 2017 12:00am January 25, 2018 2:23pm atorvastatin 20 mg oral tablet (20 sources) HMG-CoA Reductase Inhibitor Start: 01-22-2015 take 1 tablet by mouth at bedtime Atorvastatin 20 MG tablet Active 20 mg PO AT BEDTIME July 11, 2018 12:00am Comment on above: daily at bedtime. brimonidine tartrate 2 mg/ml ophthalmic solution (20 sources) alpha-Adrenergic Agonist Start: 09-16-2021 take 1 drop(s) into the eye(s) every twelve hours brimonidine (ALPHAGAN) 0.2 % ophthalmic solution Use 1 Drop in the left eye every 12 hours. 5 mL 09/16/2021 Active Start: 09-16-2021 take 1 drop(s) into the eye(s) every twelve hours brimonidine (ALPHAGAN) 0.2 % ophthalmic solution Use 1 Drop in the left eye every 12 hours. 5 mL 09/16/2021 Active Comment on above: Use 1 Drop in the le ft eye every 12 hours. cyclobenzaprine hydrochloride 5 mg oral tablet (20 sources) Muscle Relaxant Start: 2020 take 1 tablet by mouth every eight hours as needed cyclobenzaprine (FLEXERIL) 5 mg tablet Take 5 mg by mouth three times daily as needed. 07/31/2021 Active Comment on above: Take 5 mg by mouth t hree times daily as needed. cycloSPORINE 0.5 mg/ml ophthalmic suspension (20 sources) Calcineurin Inhibitor Immunosuppressant Start: 2020 take 1 drop(s) into the eye(s) twice daily RESTASIS 0.05 % ophthalmic emulsion INSTILL 1 DROP INTO EACH EYE TWICE DAILY DIRECTED 07/13/2021 Active Start: 10-07-2020 End: 06-22-2023 Cyclosporine 0.05 % droppere tte Discontinued 1 NMA OPHTHALMIC TWICE A DAY October 07, 2020 1:00am June 22, 2023 10:19am Comment on above: INSTILL 1 DROP INTO EACH EYE TWICE DAILY DIRECTED nnmq-XS-jpy-kwl-ULD-BRBN-be -mv 1.5 mg iron- 8.73 mg CpID (20 sources) embk-LX-tqu-epa- FAD-NADH-b e-mv 1.5 mg iron- 8.73 mg CpID Take by mouth once daily. Active txdv-JD-uaj-epa- KOK-BVPA-eu-mv 1.5 mg iron- 8.73 mg CpID Take by mouth once daily. 0 Active Comment on above: Take by mouth once d aily. latanoprost 0.05 mg/ml ophthalmic solution (20 sources) Prostaglandin Analog Start: take 1 drop(s) into the eye(s) once daily at bedtime latanoprost (XALATAN) 0.005 % ophthalmic solution Use 1 Drop in the left eye once daily. Instill 1 drop in each eye at bedtime. 7.5 mL 3 09/10/2021 Active Start: 06-29-2018 take 1 drop(s) into the eye(s) at bedtime LATANOPROST 0.005 % SOLN 1 drop each eye at bedtime LATANOPROST [id number] Taylor Lopes TOUR ESCORT Start: 03-22-2018 End: 06-22-2023 Latanoprost 1 DROP bottle Discontinued 1 NMA OPHTHALMIC BEDTIME March 22, 2018 12:00am June 22, 2023 10:19am Comment on above: Use 1 Drop in the le ft eye once daily. Instill 1 drop in each eye at bedtime. meloxicam 7.5 mg oral tablet (20 sources) Nonsteroidal Anti-inflammatory Drug Start: 09-03-20 21 take 1 tablet by mouth once daily meloxicam (MOBIC) 7.5 mg tablet Indications: Lumbar degenerative disc disease , Lumbar radiculopathy Take 1 tablet by mouth once daily. Take this directly following a meal 60 tablet 09/03/2021 Active Comment on above: Take 1 tablet by [facility] once daily. Take this directly following a meal 24 hr verapamil hydrochloride 360 mg extended release oral capsule (20 sources) Calcium Channel Bon Start: 01-23-20 15 Verapamil HCl 360 mg 24 hr capsule VERAPAMIL HCL ER 360 MG [id number] 01/22/2015 Active Start: 01-22-2015 take 1 capsule by mo [facility] once daily Verapamil 360 MG capsule,ext rel. pellets 24 hr Active 360 mg PO DAILY July 16, 2016 12:00am Comment on above: VERAPAMIL HCL ER 360 MG [id number] Completed/Discontinued Medications Medication Drug Class(es) Dates Sig (Normalized) Sig (Original) acetaminophen 325 mg / oxyCODONE hydrochloride 5 mg oral tablet (15 sources) Opioid Agonist Start: 03-09-2018 End: 04-05-2018 Oxycodone-Acetamino phen 1 TABLET tablet Discontinued 1 - 2 {tbl} PO EVERY 4 HOURS NEEDED as needed for Pain 60 March 09, 2018 12:00am April 05, 2018 1:28pm Start: 03-09-2018 End: 04-05-2018 take 1 tablet by mouth every four hours as needed Oxycodone-Acetaminophen Discontinued 1 - 2 TABLET PO EVERY 4 HOURS NEEDED 60 March 09, 2018 12:00am April 05, 2018 1:28pm aspirin 325 mg delayed release oral tablet (15 sources) Platelet Aggregation Inhibitor, Nonsteroidal Anti-inflammatory Drug Start: 03-09-2018 End: 03-09-2018 take 1 tablet by mouth twice daily Aspirin 325 MG tablet Discontinued 325 mg PO TWICE A DAY 30 March 09, 2018 12:00am March 09, 2018 2:41pm brimonidine tartrate 2 mg/ml / timolol 5 mg/ml ophthalmic solution (16 sources) alpha-Adrenergic Agonist, beta-Adrenergic Bon Start: 10-23-2020 End: 06-22-2023 take 1 drop(s) into the eye(s) once daily Brimonidine-Timol ol 1 DROP bottle Discontinued 1 NMA OPHTHALMIC DAILY October 23, 2020 1:00am June 22, 2023 10:19am Start: 10-23-2020 End: 06-22-2023 Brimonidine-Timolol Disconti nued 1 DRP OPHTHALMIC DAILY October 23, 2020 1:00am June 22, 2023 10:19am Start: 06-29-2018 take 1 drop(s) into the eye(s) twice daily COMBIGAN 0.2-0.5 % SOLN 1 drop each eye twice daily BRIMONIDINE TARTRATE-TIMOLOL [id number] Taylor Lopes TOUR ESCORT 5 ml bupivacaine hydrochloride 5 mg/ml injection (2 sources) Amide Local Anesthetic Start: 08-03-2022 End: 08-03-2022 bupivacaine (PF) 0.5 % (5 mg/mL) 8 mL injection Start: 05-19-2022 End: 05-19-2022 bupivacaine (PF) 0.5 % (5 mg /mL) 1 mL injection cholecalciferol 0.05 mg oral capsule (20 sources) Vitamin D Start: 10-23-2020 End: 06-22-2023 take 1 capsule by mouth once daily Cholecalciferol (Vitamin D3) 2,000 UNIT capsule Discontinued 2000 U PO DAILY October 23, 2020 1:00am June 22, 2023 10:19am Comment on above: Take 1 capsule by [facility] once daily. diazePAM 5 mg oral tablet (20 sources) Benzodiazepine Start: 10-25-2022 End: 06-22-2023 take 1 tablet by mouth every eight hours as needed for muscle spasms Diazepam 5 mg tablet Discontinued 5 mg PO EVERY 8 HOURS as needed for Muscle Spasm October 25, 2022 11:50am June 22, 2023 10:19am Start: 05-17-2022 End: 05-18-2022 diazePAM (VALIUM) 5 mg table t Indications: Lumbar radiculopathy Take 2 tablets by mouth available for use prior to procedure for 1 day. Take by mouth one or two tablets 30 min. prior to MRI for claustrophobia or anxiety Do not start before May 17, 2022. 2 tablet 0 05/17/2022 05/18/2022 Start: 02-13-2018 End: 02-28-2018 Diazepam (Valium) 10 mg tabl et Discontinued 0 PO .COMPLEX as needed for anxiety February 13, 2018 12:00am February 28, 2018 1:19pm 1 po 1/2 hr prior to procedure PO PRN Comment on above: Take 2 tablets by mouth available for us e prior to procedure for 1 day. Take by mouth one or two tablets 30 min. prior to MRI for claustrophobia or anxiety Do not start before May 17, 2022. docusate sodium 100 mg oral capsule (20 sources) Start: 03-09-20 18 End: 03-22-20 take 1 capsule by mouth twice daily as needed for constipation Docusate Sodium 100 MG capsule Discontinued 100 mg PO TWICE DAILY NEEDED as needed for Constipation March 09, 2018 12:00am March 22, 2018 8:55am Start: 06-28-2017 End: 01-25-2018 take 1 capsule by mouth twice daily as needed for constipation Docusate Sodium 100 MG capsule Discontinued 100 mg PO TWICE DAILY NEEDED as needed for Constipation June 28, 2017 12:00am January 25, 2018 2:23pm doxycycline monohydrate 100 mg oral capsule (15 sources) Tetracycline-class Drug Start: 10-03-2019 End: 06-17-2020 take 1 capsule by mouth twice daily Doxycycline Monohydrate 100 MG capsule Discontinued 100 mg PO TWICE A DAY October 03, 2019 1:00am June 17, 2020 2:34pm famotidine 40 mg oral tablet (15 sources) Histamine-2 Receptor Antagonist Start: 03-09-2018 End: 03-09-2018 take 1 tablet by mouth once daily Famotidine 40 MG tablet Discontinued 40 mg PO DAILY March 09, 2018 12:00am March 09, 2018 2:41pm ferrous gluconate 324 mg oral tablet (15 sources) Start: 10-23-2020 End: 06-22-2023 Ferrous Gluconate 324 MG tablet Discontinued 325 mg PO DAILY@799October 23, 2020 1:00am June 22, 2023 10:19am Start: 10-23-2020 End: 06-22-2023 take 325 mg by mouth once daily Ferrous Gluconate Discontinued 325 MG PO DAILY@799October 23, 2020 1:00am June 22, 2023 10:19am folic acid 1 mg oral tablet (15 sources) Start: 03-09-2018 End: 03-09-2018 take 1 tablet by mouth once daily Folic Acid 1 MG tablet Discontinued 1 mg PO DAILY@0800 March 09, 2018 12:00am March 09, 2018 2:41pm gabapentin 300 mg oral capsule (15 sources) Anti-epileptic Agent Start: 02-02-2021 End: 06-22-2023 take 1 capsule by mouth once daily Gabapentin 300 mg capsule Discontinued 300 mg PO DAILY February 02, 2021 12:00am June 22, 2023 10:19am methylPREDNISolone 4 mg oral tablet (20 sources) Corticosteroid Start: 02-04-2021 End: 06-03-2022 methylPREDNISolone (MEDROL) 4 mg Take by mouth. 0 02/04/2021 06/03/2022 Discontinued (Course of therapy completed) Start: 02-04-2021 End: 06-22-2023 take 1 tablet by mouth once Methylprednisolone (Medrol (Fabricio)) 4 mg tablets,dose pack Discontinued 0 PO per package directions February 04, 2021 12:00am June 22, 2023 10:19am PO per package directions; Comment on above: Take by mouth. Dxionqxamvht-Ks-Aifg-Min erals (13 sources) Start: 03-09-2018 End: 03-09-2018 Xocbptgvrjme-Sk-Vxgj-Mineral s Discontinued 1 EACH PO DAILY March 09, 2018 6:56am March 09, 2018 2:41pm Start: 03-09-2018 End: 03-09-2018 Qxtkmamcfity-Ac-Ckdl-Mineral s Discontinued 1 EACH PO DAILY March 08, 2018 11:00pm March 09, 2018 1:41pm Start: 03-09-2018 End: 03-09-2018 Qmiaudtkjift-Ow-Opnt-Mineral s Discontinued 1 EACH PO DAILY March 09, 2018 12:00am March 09, 2018 2:41pm Cqvgprgxfidj-Uf-Qnnn-Mineral s 1 EACH tablet (2 sources) Start: 03-09-2018 End: 03-09-2018 take 1 tablet by mouth once daily Wqynlonuwluz-Yd-Arwo-Minerals 1 EACH tablet Discontinued 1 NMA PO DAILY March 09, 2018 12:00am March 09, 2018 2:41pm naproxen 500 mg oral tablet (10 sources) Nonster oidal Anti-in flammat ory Drug Start: 10-25-2022 End: 06-22-2023 take 1 tablet by mouth twice daily as needed Naproxen 500 mg tablet Discontinued 500 mg PO TWICE DAILY NEEDED October 25, 2022 1:00am June 22, 2023 10:19am 24 hr oxybutynin chloride 10 mg extended release oral tablet (1 source) Choline rgic Muscari [place] Antagon ist Start: 06-29-2018 OXYBUTYNIN CHLORIDE ER 10 MG [id number] 1 tablet daily OXYBUTYNIN CHLORIDE [id number] Taylor Lopes TOUR ESCORT pantoprazole 40 mg delayed release oral tablet (20 sources) Proton Pump Inhibit or Start: 07-11-2018 End: 06-22-2023 take 1 tablet by mouth once daily Pantoprazole 40 MG tablet Discontinued 40 mg PO DAILY July 11, 2018 12:00am June 22, 2023 10:19am Start: 06-29-2018 PANTOPRAZOLE S ODIUM 40 MG TBEC 1 tablet daily PANTOPRAZOLE SODIUM [id number] Taylor Lopes TOUR ESCORT Comment on above: TAKE 1 TABLET BY JESSIE 30-45 MINUTES BEFORE BREAKFAST polysaccharide iron complex 150 mg oral capsule (20 sources) Start: 018 End: Polysaccharide Iron Complex (Ferrex 150) 150 MG capsule Discontinued 150 mg PO DAILY WITH MEALS March 09, 2018 2:41pm March 22, 2018 8:57am predniSONE 10 mg oral tablet (10 sources) Corticosteroid Start: PREDNISONE 10 MG TABS as directed PREDNISONE [id number] Derek Vazquez promethazine hydrochloride 25 mg oral tablet (10 sources) Phenothiazine Start: take 1 tablet by mouth every four hours as needed for nausea PROMETHAZINE HCL 25 MG TABS 1 po q4h as needed nausea PROMETHAZINE HCL [id number] Derek Vazquez traMADol hydrochloride 50 mg oral tablet (20 sources) Opioid Agonist Start: End: take 1-10 tablets by mouth every six hours as needed for pain Tramadol 50 MG tablet Discontinued 50 mg PO EVERY 6 HOURS NEEDED as needed for Pain 1-10 Or Fever 20 October 31, 2020 1:00am November 04, 2020 1:00am November 05, 2020 1:02am stop all other narcotics End: 06-03-2022 traMADol (ULTRAM) 50 mg tabl et once daily. 0 06/03/2022 Discontinued (Course of therapy completed) Comment on above: once daily. 1 ml triamcinolone acetonide 40 mg/ml injection (3 sources) Corticosteroid Start: 08-03-2022 End: 08-03-2022 triamcinolone acetonide 80 mg injection (KeNALog 40) Start: 05-19-2022 End: 05-19-2022 triamcinolone acetonide 10 m g injection (KeNALog 10) Start: 05-10-2019 End: 05-10-2019 Kenalog (triamcinolone aceto nide) 40 mg/mL suspension for injection Discontinued 20 MG INTRAARTIC ONCE 0.5 May 10, 2019 9:39am May 10, 2019 10:23am Problems Active Problems Problem Classification Problem Date Documented Da te Episodic/Chronic Anxiety disorders (20 sources) Claustrophobia; Translations: [Claustrophobia] Onset: 5 06-30-2015 Chronic Chronic kidney disease (1 source) Chronic kidney disease; Translations: [Chronic kidney disease, stage 3b] Onset: 4 Complication of device; implant or graft (3 sources) Disorder of prosthetic joint; Translations: [Instability of internal left knee prosthesis, subsequent encounter] Episodic Diseases of mouth; excluding dental (2 sources) Parotitis; Translations: [Acute sialoadenitis] 03-08-2025 Episodic Disorders of lipid metabolism (20 sources) Dyslipidemia; Translations: [Hyperlipidemia, unspecified] Onset: 1 08-11-2021 Chronic Diverticulosis and diverticulitis (20 sources) Diverticulosis of colon; Translations: [Diverticulosis of large intestine without perforation or abscess without bleeding] 08-11-2021 Chronic Esophageal disorders (20 sources) Gastroesophageal reflux disease; Translations: [Gastro-esophageal reflux disease without esophagitis] Onset: 7 01-13-2022 Chronic Essential hypertension (20 sources) Benign essential hypertension; Translations: [Essential (primary) hypertension] Onset: 7 01-13-2022 Chronic Glaucoma (20 sources) Primary open angle glaucoma; Translations: [Primary open-angle glaucoma, bilateral, severe stage] Onset: 1 08-11-2021 Chronic Joint disorders and dislocations; trauma-related (16 sources) Chondromalacia of patella; 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] Onset: 5 01-22-2015 Chronic Nonspecific chest pain (15 sources) Chest pain; Translations: [Chest pain, unspecified] 07-14-2018 Episodic Osteoarthritis (20 sources) Localized, primary osteoarthritis; Translations: [Osteoarthritis of knee] Onset: 5 03-17-2016 Chronic Other connective tissue disease (6 sources) History of total knee arthroplasty; Translations: [Presence of unspecified artificial knee joint] 06-22-2023 Chronic Other connective tissue disease (1 source) Presence of unspecified artificial knee joint; Translations: [Knee joint replacement] 06-22-2023 Chronic Other connective tissue disease (20 sources) Disorder of rotator cuff; Translations: [Rotator cuff syndrome] Onset: 5 08-09-2016 Episodic Other connective tissue disease (15 sources) Hand pain; Translations: [Pain in right hand] 03-10-2021 Episodic Other connective tissue disease (2 sources) Tendinitis of extensor tendon of hand; Translations: [Other enthesopathies, not elsewhere classified] Episodic Other connective tissue disease (14 sources) Pain in upper limb; Translations: [Pain in arm, unspecified] 04-20-2022 Episodic Other connective tissue disease (2 sources) Pain in arm, unspecified; Translations: [Pain in limb] Episodic Other connective tissue disease (1 source) Pain in left lower limb; Translations: [Pain in left leg] Episodic Other connective tissue disease (2 sources) Impingement syndrome of left shoulder region; Translations: [Impingement syndrome of left shoulder] Episodic Other connective tissue disease (2 sources) Calcific tendinitis of left shoulder; Translations: [Calcific tendinitis of left shoulder] Episodic Other connective tissue disease (10 sources) Muscle spasm of cervical muscle of neck; Translations: [Other muscle spasm] 11-02-2022 Episodic Other connective tissue disease (1 source) Pain in right hand; Translations: [Right hand pain] Onset: Episodic Other connective tissue disease (2 sources) Pain in right hand; Translations: [Pain in right hand] 05-11-2024 Episodic Other gastrointestinal disorders (20 sources) Chronic constipation; Translations: [Other constipation] Onset: 2 01-13-2022 Episodic Other injuries and conditions due to external causes (2 sources) Osteoarthritis of wrist; Translations: [Other specified injuries of left wrist, hand and finger(s), initial encounter] Episodic Other injuries and conditions due to external causes (3 sources) Sprain of scapholunate ligament; Translations: [Unspecified injury of left wrist, hand and finger(s), initial encounter] Episodic Other non-traumatic joint disorders (8 sources) Pain in left knee; Translations: [Left knee pain] Onset: 6 03-17-2016 Episodic Other non-traumatic joint disorders (8 sources) Shoulder pain; Translations: [Pain in right shoulder] Onset: 6 01-19-2016 Episodic Other non-traumatic joint disorders (3 sources) Wrist joint pain; Translations: [Pain in left wrist] Episodic Other non-traumatic joint disorders (4 sources) Pain of left wrist; Translations: [Pain in left wrist] Episodic Other non-traumatic joint disorders (1 source) Ulnar impaction syndrome of left wrist; Translations: [Other specified joint disorders, left wrist] Episodic Other non-traumatic joint disorders (3 sources) Chronic pain of left upper limb; Translations: [Pain in left shoulder] Episodic Other non-traumatic joint disorders (7 sources) Pain in right shoulder; Translations: [Right shoulder pain] 04-20-2022 Episodic Other nutritional; endocrine; and metabolic disorders (20 sources) Morbid obesity; Translations: [Morbid (severe) obesity due to excess calories] Onset: 4 05-20-2014 Chronic Other upper respiratory disease (15 sources) Acute bronchospasm; Translations: [Acute bronchospasm] 10-04-2019 Episodic Parkinson`s disease (20 sources) Parkinson's disease; Translations: [Parkinson's disease] Onset: 2 Chronic Pneumonia (except that caused by tuberculosis or sexually transmitted disease) (15 sources) Community acquired pneumonia; Translations: [Pneumonia, unspecified organism] 10-04-2019 Episodic Residual codes; unclassified (1 source) Pain; Translations: [Pain, unspecified] 06-05-2024 Episodic Residual codes; unclassified (1 source) Edema, unspecified; Translations: [Edema, unspecified] Onset: 5 Episodic Spondylosis; intervertebral disc disorders; other back problems (2 sources) Degeneration of lumbar intervertebral disc; Translations: [Other intervertebral disc degeneration, lumbar region] Chronic Unclassified (10 sources) Aftercare ; Translations: [Encounter for other orthopedic aftercare] Onset: 6 09-06-2016 Past or Other Problems Problem Classification Problem Date Documented Date Episodic/Chronic Abdominal hernia (20 sources) Diaphragmatic hernia; Translations: [Diaphragmatic hernia without obstruction or gangrene] Onset: 06-29-2007 06-29-2007 Episodic Deficiency and other anemia (1 source) Anemia, unspecified; Translations: [Anemia, unspecified] Onset: 07-23-2024 Episodic Fracture of lower limb (5 sources) Closed fracture of phalanx of foot; Translations: [Unspecified fracture of unspecified toe(s), initial encounter for closed fracture] Onset: 04-14-2007 Resolved: 01-13-2022 01-13-2022 Episodic Gastritis and duodenitis (5 sources) Acute gastritis; Translations: [Acute gastritis without bleeding] Onset: 06-29-2007 Resolved: 01-13-2022 01-13-2022 Episodic Genitourinary symptoms and ill-defined conditions (20 sources) Increased frequency of urination; Translations: [Frequency of micturition] Onset: 05-20-2014 Resolved: 01-13-2022 05-20-2014 Episodic Other and unspecified benign neoplasm [...] middle finger] Onset: 09-08-2010 01-13-2022 Episodic Other diseases of bladder and urethra (5 sources) Disorder of bladder; Translations: [Other specified disorders of bladder] Onset: 01-09-2008 Resolved: 01-13-2022 01-13-2022 Chronic Other female genital disorders (5 sources) Female genital organ symptoms; Translations: [Unspecified condition associated with female genital organs and menstrual cycle] Onset: 01-09-2008 Resolved: 01-13-2022 01-13-2022 Episodic Other non-traumatic joint disorders (20 sources) Impingement syndrome of shoulder region; Translations: [Knee pain] Onset: 01-22-2015 01-19-2016 Episodic Other non-traumatic joint disorders (3 sources) Knee pain; Translations: [Pain in unspecified knee] Onset: 01-22-2015 12-30-2016 Episodic Other non-traumatic joint disorders (1 source) Pain in joint, shoulder region; Translations: [Pain in joint involving shoulder region] Onset: 01-22-2015 01-22-2015 Episodic Other non-traumatic joint disorders (1 source) Effusion, left knee; Translations: [Effusion, left knee] Onset: 03-01-2016 03-17-2016 Episodic Rehabilitation care; fitting of prostheses; and adjustment of devices (5 sources) Patient encounter status; Translations: [Other physical therapy] Onset: 12-07-2010 Resolved: 01-13-2022 01-13-2022 Episodic Spondylosis; intervertebral disc disorders; other back problems (20 sources) Chronic low back pain; Translations: [Lumbago with sciatica, left side] Onset: 11-19-2021 Episodic Sprains and strains (10 sources) Sprain of unspecified rotator cuff capsule, initial encounter; Translations: [Sprain of unspecified rotator cuff capsule, initial encounter] Onset: 03-21-2015 03-24-2015 Episodic Unclassified (1 source) Problem Results Test Name Value Interpretation Reference Range Facility Absolute neutrophil countOrd ered By: Drew Liz on 03-08-2025 Neutrophils (Bld) [#/Vol] 2.5 10*3/uL 2.0-7.7 [facility] Anion gap in Serum or Plasma Ordered By: Drew Liz on 03-08-2025 Anion gap [Moles/Vol] 11 mmol/L - [facility] BUN/creatinine ratioOrdered By: Drew Liz on 03-08-2025 Urea nitrogen/Creatinine [Mass ratio] 8.9 mg/mg Low 10- [facility] Basic Metabolic Profile (BMP )on 03-08-2025 BUN/CRE 8.9 RATIO Low - [facility] Comment on above: Performed By: #### L 503.6550, L506.0250, L503.6150, L503.6075, L509.1000, L506.1000, L506.0400, L500.4100, L501.2300, L501.9520, L503.0105, L100.0100, L500.4050 #### [facility] Laboratory [facility] [place], [address] Calcium [Mass/Vol] 9.2 mg/dL Normal 7.6-11.0 [facility] Comment on above: Performed By: #### L 503.6550, L506.0250, L503.6150, L503.6075, L509.1000, L506.1000, L506.0400, L500.4100, L501.2300, L501.9520, L503.0105, L100.0100, L500.4050 #### [facility] [address] [place], [address] Chloride [Moles/Vol] 104 mmol/L Normal 98-108 [facility] Comment on above: Performed By: #### L 503.6550, L506.0250, L503.6150, L503.6075, L509.1000, L506.1000, L506.0400, L500.4100, L501.2300, L501.9520, L503.0105, L100.0100, L500.4050 #### [facility] [address] [place], [address] CO2 [Moles/Vol] 25.0 mmol/L Normal 21.0-32.0 [facility] Comment on above: Performed By: #### L 503.6550, L506.0250, L503.6150, L503.6075, L509.1000, L506.1000, L506.0400, L500.4100, L501.2300, L501.9520, L503.0105, L100.0100, L500.4050 #### [facility] [address] [place], [address] Creatinine [Mass/Vol] 1.86 mg/dL High 0.70-1.20 [facility] Comment on above: Performed By: #### L 503.6550, L506.0250, L503.6150, L503.6075, L509.1000, L506.1000, L506.0400, L500.4100, L501.2300, L501.9520, L503.0105, L100.0100, L500.4050 #### [facility] [address] [facility] [place], [place], [phone] ECRCL 24.91 ml/min Low 50-250 [facility] Comment on above: Performed By: #### L 503.6550, L506.0250, L503.6150, L503.6075, L509.1000, L506.1000, L506.0400, L500.4100, L501.2300, L501.9520, L503.0105, L100.0100, L500.4050 #### [facility] [address] [facility] [place], [place], [id number] GAP 11 Normal 5-15 [facility] Comment on above: Performed By: #### L 503.6550, L506.0250, L503.6150, L503.6075, L509.1000, L506.1000, L506.0400, L500.4100, L501.2300, L501.9520, L503.0105, L100.0100, L500.4050 #### [facility] [address] [facility] [place], [place], [id number] GFR/1.73 sq M.predicted among non-blacks MDRD (S/P/Bld) [Vol rate/Area] 27 mL/min/{1.73_m2} Low >60 [facility] Comment on above: Result Comment: mL/m in/1.73m2 CKD-EPI Creatinine Equation (2020) Performed By: #### L 503.6550, L506.0250, L503.6150, L503.6075, L509.1000, L506.1000, L506.0400, L500.4100, L501.2300, L501.9520, L503.0105, L100.0100, L500.4050 #### [facility] [address] [place], [address] Glucose [Mass/Vol] 121 mg/dL High 70-99 [facility] Comment on above: Performed By: #### L 503.6550, L506.0250, L503.6150, L503.6075, L509.1000, L506.1000, L506.0400, L500.4100, L501.2300, L501.9520, L503.0105, L100.0100, L500.4050 #### [facility] [address] [place], [place], [phone] ([phone] Potassium [Moles/Vol] 4.1 mmol/L Normal 3.3-5.1 [facility] Comment on above: Result Comment: Hemo lysis present, Results??could be affected. ?? Performed By: #### L 503.6550, L506.0250, L503.6150, L503.6075, L509.1000, L506.1000, L506.0400, L500.4100, L501.2300, L501.9520, L503.0105, L100.0100, L500.4050 #### [facility] [address] [place], [place], [phone] ([phone]) Sodium [Moles/Vol] 140 mmol/L Normal 133-145 [facility] Comment on above: Performed By: #### L 503.6550, L506.0250, L503.6150, L503.6075, L509.1000, L506.1000, L506.0400, L500.4100, L501.2300, L501.9520, L503.0105, L100.0100, L500.4050 #### [facility] [address] [place], [place], [phone] (544) Urea nitrogen [Mass/Vol] 17 mg/dL Normal 4-19 [facility] Comment on above: Performed By: #### L 503.6550, L506.0250, L503.6150, L503.6075, L509.1000, L506.1000, L506.0400, L500.4100, L501.2300, L501.9520, L503.0105, L100.0100, L500.4050 #### [facility] [address] [facility] [place], [address] Basophil percentageOrdered B y: Drew Liz on 03-08-2025 Basophils/100 WBC (Bld) 0.5 % 0-1 [facility] CBC W/Diff, Automatedon 02-13 Absolute Lymph 2.90 X10 3/uL Normal 0.83-4.51 [facility] Comment on above: Performed By: #### L 503.6550, L506.0250, L503.6150, L503.6075, L509.1000, L506.1000, L506.0400, L500.4100, L501.2300, L501.9520, L503.0105, L100.0100, L500.4050 #### [facility] [address] [place], [address] Absolute Neut 2.5 X10 3/uL Normal 2.0-7.7 [facility] Comment on above: Performed By: #### L 503.6550, L506.0250, L503.6150, L503.6075, L509.1000, L506.1000, L506.0400, L500.4100, L501.2300, L501.9520, L503.0105, L100.0100, L500.4050 #### [facility] [address] [place], [address] Basophils/100 WBC (Bld) 0.5 % Normal 0-1 [facility] Comment on above: Performed By: #### L 503.6550, L506.0250, L503.6150, L503.6075, L509.1000, L506.1000, L506.0400, L500.4100, L501.2300, L501.9520, L503.0105, L100.0100, L500.4050 #### [facility] [address] [facility] [place], [address] ([phone] Eosinophils/100 WBC (Bld) 0.9 % Normal 0-5 [facility] Comment on above: Performed By: #### L 503.6550, L506.0250, L503.6150, L503.6075, L509.1000, L506.1000, L506.0400, L500.4100, L501.2300, L501.9520, L503.0105, L100.0100, L500.4050 #### [facility] [address] [facility] [place], [address] (160) Erythrocyte distribution width (RBC) [Ratio] 13.7 % Normal 11.6-14.6 [facility] Comment on above: Performed By: #### L 503.6550, L506.0250, L503.6150, L503.6075, L509.1000, L506.1000, L506.0400, L500.4100, L501.2300, L501.9520, L503.0105, L100.0100, L500.4050 #### [facility] [address] [facility] [place], [place], [phone] ([phone]) Hematocrit (Bld) [Volume fraction] 37.2 % Normal 37-47 [facility] Comment on above: Performed By: #### L 503.6550, L506.0250, L503.6150, L503.6075, L509.1000, L506.1000, L506.0400, L500.4100, L501.2300, L501.9520, L503.0105, L100.0100, L500.4050 #### [facility] [address] [facility] [place], [place], [phone] (073) Hemoglobin (Bld) [Mass/Vol] 12.2 g/dL Normal 12.0-15.0 [facility] Comment on above: Performed By: #### L 503.6550, L506.0250, L503.6150, L503.6075, L509.1000, L506.1000, L506.0400, L500.4100, L501.2300, L501.9520, L503.0105, L100.0100, L500.4050 #### [facility] [address] [place], [address] IG% 0.200 Normal 0.0-0.9 [facility] Comment on above: Result Comment: IG% - Immature Granulocytes (promyelocytes, myelocytes and metamyelocytes) > 1% indicates that a LEFT SHIFT is Present. Performed By: #### L 503.6550, L506.0250, L503.6150, L503.6075, L509.1000, L506.1000, L506.0400, L500.4100, L501.2300, L501.9520, L503.0105, L100.0100, L500.4050 #### [facility] [address] [place], [address] Lymphocytes/100 WBC (Bld) 49.5 % High 19-41 [facility] Comment on above: Performed By: #### L 503.6550, L506.0250, L503.6150, L503.6075, L509.1000, L506.1000, L506.0400, L500.4100, L501.2300, L501.9520, L503.0105, L100.0100, L500.4050 #### [facility] [address] [place], [address] MCH (RBC) [Entitic mass] 30.4 pg Normal 27.0-32.0 [facility] Comment on above: Performed By: #### L 503.6550, L506.0250, L503.6150, L503.6075, L509.1000, L506.1000, L506.0400, L500.4100, L501.2300, L501.9520, L503.0105, L100.0100, L500.4050 #### [facility] [address] [place], [address] MCHC (RBC) [Mass/Vol] 32.8 g/dL Normal 32-36 [facility] Comment on above: Performed By: #### L 503.6550, L506.0250, L503.6150, L503.6075, L509.1000, L506.1000, L506.0400, L500.4100, L501.2300, L501.9520, L503.0105, L100.0100, L500.4050 #### [facility] [address] [place], [address] MCV (RBC) [Entitic vol] 92.8 fL Normal 81-99 [facility] Comment on above: Performed By: #### L 503.6550, L506.0250, L503.6150, L503.6075, L509.1000, L506.1000, L506.0400, L500.4100, L501.2300, L501.9520, L503.0105, L100.0100, L500.4050 #### [facility] [address] [place], [address] Monocytes/100 WBC (Bld) 7.2 % Normal 0-10 [facility] Comment on above: Performed By: #### L 503.6550, L506.0250, L503.6150, L503.6075, L509.1000, L506.1000, L506.0400, L500.4100, L501.2300, L501.9520, L503.0105, L100.0100, L500.4050 #### [facility] [address] [place], [address] Neutrophils/100 WBC (Bld) 41.7 % Low 47-70 [facility] Comment on above: Performed By: #### L 503.6550, L506.0250, L503.6150, L503.6075, L509.1000, L506.1000, L506.0400, L500.4100, L501.2300, L501.9520, L503.0105, L100.0100, L500.4050 #### [facility] [address] [place], [place], [phone] (412) Nucleated RBC (Bld) [#/Vol] 0 10*3/uL Normal 0-5 [facility] Comment on above: Performed By: #### L 503.6550, L506.0250, L503.6150, L503.6075, L509.1000, L506.1000, L506.0400, L500.4100, L501.2300, L501.9520, L503.0105, L100.0100, L500.4050 #### [facility] [address] [facility] [place], [place], [phone] (636) Platelet mean volume (Bld) [Entitic vol] 9.1 fL Normal 6.2-12.0 [facility] Comment on above: Performed By: #### L 503.6550, L506.0250, L503.6150, L503.6075, L509.1000, L506.1000, L506.0400, L500.4100, L501.2300, L501.9520, L503.0105, L100.0100, L500.4050 #### [facility] [address] [place], [place], [phone] (671) Platelets (Bld) [#/Vol] 244 10*3/uL Normal 150-450 [facility] Comment on above: Performed By: #### L 503.6550, L506.0250, L503.6150, L503.6075, L509.1000, L506.1000, L506.0400, L500.4100, L501.2300, L501.9520, L503.0105, L100.0100, L500.4050 #### [facility] [address] [place], [place], [phone] (782) RBC (Bld) [#/Vol] 4.01 10*6/uL Low 4.2-5.4 [facility] Comment on above: Performed By: #### L 503.6550, L506.0250, L503.6150, L503.6075, L509.1000, L506.1000, L506.0400, L500.4100, L501.2300, L501.9520, L503.0105, L100.0100, L500.4050 #### [facility] [address] [place], [place], [phone] ([phone] RDW SD 47.2 fl High 35.1-43.9 [facility] Comment on above: Performed By: #### L 503.6550, L506.0250, L503.6150, L503.6075, L509.1000, L506.1000, L506.0400, L500.4100, L501.2300, L501.9520, L503.0105, L100.0100, L500.4050 #### [facility] [address] [place], [place], [phone] (645) WBC (Bld) [#/Vol] 5.9 10*3/uL Normal 4.4-11.0 [facility] Comment on above: Performed By: #### L 503.6550, L506.0250, L503.6150, L503.6075, L509.1000, L506.1000, L506.0400, L500.4100, L501.2300, L501.9520, L503.0105, L100.0100, L500.4050 #### [facility] [address] [place], [place], [phone] ([phone]) Carbon dioxide, total [Moles /volume] in Central venous bloodOrdered By: Drew Liz on 03-08-2025 CO2 [Moles/Vol] 25.0 mmol/L 21.0-32.0 [facility] Chloride assayOrdered By: Mando Liz on 03-08-2025 Chloride [Moles/Vol] 104 mmol/L 98-108 [facility] Emergency Department Summary on 03-08-2025 Emergency Department Summary [facility] Medical Records Department [address] [place] [address] Emergency Department Summary 03/08/25 MR#: [id number] Acct: [id number] Name: SHARON REED Rep #: [id number] : 1945 79 From: Drew Liz MD PCP: Dr. Susan Yañez MD Status:REG ER Location: ED HPI History of Present Illness Chief Complaint: Edema Narrative Narrative: 79-year-old female past medical history of hypertension hypercholesterolemia presents with a left facial swelling that began today. She states yesterday everything was fine. She attends an adult day center, where they asked her what was wrong with her left cheek. They noticed it was more swollen. She states that it felt a little achy this morning, but has progressively gotten worse throughout the day. She denies any fevers or chills. No dry mouth. No exacerbating or alleviating factors. No difficulty swallowing or breathing. She states is not her neck that swollen it is more right in front of her ear and in her left cheek. [facility] Medical History High cholesterol Hypertension Home Medications ???Medication ???Instructions ???Recorded ???Last Taken ???Type verapamil 360 mg 24 hr 360 mg PO DAILY bp 07/16/16 History capsule,extended release atorvastatin 20 mg tablet 20 mg PO QHS 07/11/18 Unknown Hist ory albuterol sulfate 90 mcg/actuation 2 puff inhalation Q4H PRN PRN Unknown Rx aerosol inhaler Wheezing ##1 amoxicillin 875 mg-potassium 1 tab PO BID #14 tabs 03/08/25 Unk nown Rx clavulanate 125 mg tablet Allergy/AdvReac Type Severity Reaction Status Date / Time codeine AdvReac Nausea Verified 03/08/25 16:38 latex AdvReac Rash Verified 03/08/25 16:38 tramadol (From Ultram) AdvReac Itching Verified 03/08/25 16:38 Surgical History h/o right hand surgery H/O left knee replacement h/o left shoulder arthroscopy H/O arthroscopy of left knee Social History Smoking Status: Never smoker ROS ROS ED ROS Narrative Review of systems positive for left cheek swelling with mild amount of pain. No fevers or chills. No redness to the area. No nausea or vomiting. No difficulty swallowing or breathing. EXAM Physical Exam Narrative Exam Narrative: Afebrile. Vital signs noted. Nontoxic-appearing. Cardiovascular examination reveals a regular rate and rhythm. Lungs are clear to auscultation bilaterally. Abdomen soft and nontender without guarding or rebound. Positive bowel sounds. Neurological examination nonfocal, nonlateralizing. HEENT examination reveals mild swelling in the left parotid gland area without noted erythema or fluctuance. She is edentulous in the left lower jaw. Neck is soft and supple without meningismus. No stridor. No William angina or angioedema of mouth. Airway patent. No drooling or trismus. Const Vital Signs: 03/08/25 16:35 03/08/25 17:17 03/08/25 18:22 Temperature 98.6 F Temperature Source Oral Pulse Rate 89 75 Respiratory Rate 16 14 Respiratory Effort Normal Respiratory Pattern Normal Blood Pressure 172/102 H 142/68 H Blood Pressure Mean 125 92 Pulse Ox 99 97 Oxygen Delivery Method Room Air Room Air MDM MDM MDM Narrative Medical decision making narrative: The differential diagnosis includes but not limited to infectious parotitis versus parotid gland abscess versus parotid gland stone. I will obtain basic laboratory work and CT imaging. In discussion with the library cataloging technician, it is preferred that she have CT of the soft tissue neck with and without contrast. I reviewed her laboratory work and she has normal white count of 5.9 with hemoglobin 12.2, hematocrit 37.2, platelet count normal at 244. Electrolyte panel shows BUN of 17 with creatinine 1.86. Glucose slightly elevated at 121. I reviewed the radiology report of the CT scans and she has an acute parotitis but no evidence of abscess or stone. She was given her first dose of Augmentin here in the emergency department and prescription written for the next week. This was after discussion with Dr. Cummings with otolaryngology. She will drink plenty of oral fluids and continue sialagogues such as lemon heads or other sour candies. Return instructions to the emergency department were reviewed. Disposition is discharged home in stable condition. History Record Review Discussion w/independent historian: Patient and Family Lab Data Attestation: I reviewed the patient's lab results. Labs: Laboratory Results - last 24 hr 03/08/25 17:03 WBC 5.9 RBC 4.01 L Hgb 12.2 Hct 37.2 MCV 92.8 MCH 30.4 MCHC 32.8 RDW Std Deviation 47.2 H RDW Coeff of Quique 13.7 (more content not included)... Normal [facility] Eosinophil percentageOrdered By: Drew Liz on 03-08-2025 Eosinophils/100 WBC (Bld) 0.9 % 0-5 [facility] Erythrocyte distribution wid th (RBC) [Ratio]Ordered By: Drew Liz on 03-08-2025 Erythrocyte distribution width (RBC) [Entitic vol] 47.2 fL High 35.1-43.9 [facility] Erythrocyte distribution wid th ratioOrdered By: Drew Liz on 03-08-2025 Erythrocyte distribution width (RBC) [Ratio] 13.7 % 11.6-14.6 [facility] Estimation of creatinine tristan aranceOrdered By: Drew Liz on 03-08-2025 Estimated Creatinine Clearance Calc 24.91 ml/min Low 50-250 [facility] GFR/1.73 sq M.predicted brisa g non-blacks MDRD (S/P/Bld) [Vol rate/Area]Ordered By: Drew Liz on 03-08-2025 Estimated GFR (MDRD) Non-Af Amer 27 Low >60 [facility] Comment on above: mL/min/1.73m2 CKD-EP I Creatinine Equation (2020) Hematocrit Auto (Bld) [Volum e fraction]Ordered By: Drew Liz on 03-08-2025 Hematocrit (Bld) [Volume fraction] 37.2 % 37-47 [facility] Hemoglobin measurementOrdere d By: Drew Liz on 03-08-2025 Hemoglobin (Bld) [Mass/Vol] 12.2 g/dL 12.0-15.0 [facility] Immature granulocytes/100 WB C Auto (Bld)Ordered By: Drew Liz on 03-08-2025 Immature granulocytes/100 WBC (Bld) 0.200 % 0.0-0.9 [facility] Comment on above: IG% - Immature Granu locytes (promyelocytes, myelocytes and metamyelocytes) > 1% indicates that a LEFT SHIFT is Present. Lymphocytes Auto (Unsp spec) [#/Vol]Ordered By: Drew Liz on 03-08-2025 Lymphocytes (Bld) [#/Vol] 2.90 10*3/uL 0.83-4.51 [facility] Lymphocytes/100 WBC Auto (Un sp spec)Ordered By: Drew Liz on 03-08-2025 Lymphocytes/100 WBC (Bld) 49.5 % High 19-41 [facility] MCV (mean corpuscular volume ) determinationOrdered By: Drew Liz on 03-08-2025 MCV (RBC) [Entitic vol] 92.8 fL 81-99 [facility] Mean corpuscular hemoglobin (MCH) determinationOrdered By: Drew Liz on 03-08-2025 MCH (RBC) [Entitic mass] 30.4 pg 27.0-32.0 [facility] Mean corpuscular hemoglobin concentration (MCHC) determinationOrdered By: Drew Liz on 03-08-2025 MCHC (RBC) [Mass/Vol] 32.8 g/dL 32-36 [facility] Mean platelet volume determi nationOrdered By: Drew Liz on 03-08-2025 Platelet mean volume (Bld) [Entitic vol] 9.1 fL 6.2-12.0 [facility] Monocyte percentageOrdered B y: Drew Liz on 03-08-2025 Monocytes/100 WBC (Bld) 7.2 % 0-10 [facility] Neutrophil percentageOrdered By: Drew Liz on 03-08-2025 Neutrophils/100 WBC (Bld) 41.7 % Low 47-70 [facility] Nucleated red blood cell per centageOrdered By: Drew Liz on 03-08-2025 Nucleated RBC/100 WBC (Bld) [Ratio] 0 % 0-5 [facility] Platelet countOrdered By: Mando Liz on 03-08-2025 Platelets (Bld) [#/Vol] 244 10*3/uL 150-450 [facility] Potassium (Unsp spec) [Mass/ Vol]Ordered By: Drew Liz on 03-08-2025 Potassium [Moles/Vol] 4.1 mmol/L 3.3-5.1 [facility] Comment on above: Hemolysis present, R esults could be affected. RBC Auto (Bld) [#/Vol]Ordere d By: Drew Liz on 03-08-2025 RBC (Bld) [#/Vol] 4.01 10*6/uL Low 4.2-5.4 [facility] Serum creatinine measurement (mass/volume)Ordered By: Drew Liz on 03-08-2025 Creatinine [Mass/Vol] 1.86 mg/dL High 0.70-1.20 [facility] Serum glucose measurement (m ass/volume)Ordered By: Drew Liz on 03-08-2025 Glucose [Mass/Vol] 121 mg/dL High 70-99 [facility] Serum or plasma calcium yue urement (mass/volume)Ordered By: Drew Liz on 03-08-2025 Calcium [Mass/Vol] 9.2 mg/dL 7.6-11.0 [facility] Serum or plasma urea nitroge n measurement (mass/volume)Ordered By: Drew Liz on 03-08-2025 Urea nitrogen [Mass/Vol] 17 mg/dL 4-19 [facility] Sodium levelOrdered By: Drew Liz on 03-08-2025 Sodium [Moles/Vol] 140 mmol/L 133-145 [facility] Soft Tissue Neck W/WO Contra ston 03-08-2025 Soft Tissue Neck W/WO Contrast [facility] Imaging Services [address] [place] [address] Soft Tissue Neck W/WO Contrast MR#: [id number] Acct: [id number] Name: SHARON REED Rep #: [id number] : 1945 F 79 From: Clint Yeager MD PCP: Dr. Susan Yañez MD Status: REG ER Study: Soft Tissue Neck W/WO Contrast Date of Exam: 0 03/08/25 Exam# [id number] Ordering Dr: Drew Liz MD PROCEDURE: SOFT TISSUE NECK W/WO CONTRAST 03/08/2025 REASON FOR EXAM: LEFT PAROTID SWELLING TECHNIQUE: CT of the soft tissues of the neck from the orbits to the upper mediastinum with intravenous contrast. One or more dose reduction techniques were used (e.g., Automated exposure control, adjustment of the mA and/or kV according to patient size, use of iterative reconstruction technique). FINDINGS: Airway: Midline and patent. Salivary glands: Enlargement of the left parotid gland with some ill-defined margins suggestive of parotitis. No loculated fluid collection to suggest abscess. Lymph nodes: No cervical lymphadenopathy. Thyroid: Unremarkable. Vasculature: Carotid arteries and internal jugular veins are unremarkable. Orbits: Unremarkable at visualized levels. Paranasal sinuses and mastoids: Grossly clear at visualized levels. Lung apices: Clear. Upper mediastinum: Visualized mediastinum is unremarkable. Bones: Unremarkable. Other: CT/Soft Tissue Neck W/WO Contrast IMPRESSION: Suspect left parotitis. No abscess. Reading Location: [facility] CC: Dr. Drew Liz MD; Dr. Susan Yañez MD Application Operations Engineer: Signed Normal [facility] White blood cell (WBC) count Ordered By: Drew Liz on 03-08-2025 WBC (Bld) [#/Vol] 5.9 10*3/uL 4.4-11.0 [facility] Absolute neutrophil countOrd ered By: Susan Yañez on 02-19-2025 Neutrophils (Bld) [#/Vol] 1.7 10*3/uL Low 2.0-7.7 [facility] Anion gap in Serum or Plasma Ordered By: Susan Yañez on 02-19-2025 Anion gap [Moles/Vol] 13 mmol/L 5-15 [facility] Automated blood erythrocyte countOrdered By: Susan Yañez on 02-19-2025 RBC (Bld) [#/Vol] 3.92 10*6/uL Low 4.2-5.4 [facility] Comment on above: Order Comment: Order Date: 11/02/24 Order Info: 0565-1 - PTHIN Performed By: #### L 503.6550, L506.0250, L503.6150, L503.6075, L509.1000, L506.1000, L506.0400, L500.4100, L501.2300, L501.9520, L503.0105, L100.0100, L500.4050 #### [facility] [address] [place], [place], [id number] Automated blood hematocrit ( percentage)Ordered By: Susan Yañez on 02-19-2025 Hematocrit (Bld) [Volume fraction] 37.0 % Normal 37-47 [facility] Comment on above: Order Comment: Order Date: 11/02/24 Order Info: 0565-1 - PTHIN Performed By: #### L 503.6550, L506.0250, L503.6150, L503.6075, L509.1000, L506.1000, L506.0400, L500.4100, L501.2300, L501.9520, L503.0105, L100.0100, L500.4050 #### [facility] [address] [place], [place], [phone] Automated lymphocyte count a s percentage of total leukocytesOrdered By: Susan Yañez on 02-19-2025 Lymphocytes/100 WBC (Bld) 54.1 % High 19-41 [facility] Comment on above: Order Comment: Order Date: 11/02/24 Order Info: 0565-1 - PTHIN Performed By: #### L 503.6550, L506.0250, L503.6150, L503.6075, L509.1000, L506.1000, L506.0400, L500.4100, L501.2300, L501.9520, L503.0105, L100.0100, L500.4050 #### [facility] [address] [place], [address] BUN/creatinine ratioOrdered By: Susan Yañez on 02-19-2025 Urea nitrogen/Creatinine [Mass ratio] 11.8 mg/mg 10-20 [facility] Basophil percentageOrdered B y: Susan Yañez on 02-19-2025 Basophils/100 WBC (Bld) 0.8 % Normal 0-1 [facility] Comment on above: Order Comment: Order Date: 11/02/24 Order Info: 0565-1 - PTHIN Performed By: #### L 503.6550, L506.0250, L503.6150, L503.6075, L509.1000, L506.1000, L506.0400, L500.4100, L501.2300, L501.9520, L503.0105, L100.0100, L500.4050 #### [facility] [address] [place], [address] Bilirubin, totalOrdered By: Susan Yañez on 02-19-2025 Bilirubin [Mass/Vol] 0.31 mg/dL 0.00-1.30 [facility] CBC W/Diff, Automatedon 04-0 Absolute Lymph 2.78 X10 3/uL Normal 0.83-4.51 [facility] Comment on above: Order Comment: Order Date: 11/02/24 Order Info: 0565-1 - PTHIN Performed By: #### L 503.6550, L506.0250, L503.6150, L503.6075, L509.1000, L506.1000, L506.0400, L500.4100, L501.2300, L501.9520, L503.0105, L100.0100, L500.4050 #### [facility] [address] [place], [address] Absolute Neut 1.7 X10 3/uL Low 2.0-7.7 [facility] Comment on above: Order Comment: Order Date: 11/02/24 Order Info: 0565-1 - PTHIN Performed By: #### L 503.6550, L506.0250, L503.6150, L503.6075, L509.1000, L506.1000, L506.0400, L500.4100, L501.2300, L501.9520, L503.0105, L100.0100, L500.4050 #### [facility] [address] [place], [place], [id number] IG% 0.200 Normal 0.0-0.9 [facility] Comment on above: Order Comment: Order Date: 11/02/24 Order Info: 0565-1 - PTHIN Result Comment: IG% - Immature Granulocytes (promyelocytes, myelocytes and metamyelocytes) > 1% indicates that a LEFT SHIFT is Present. Performed By: #### L 503.6550, L506.0250, L503.6150, L503.6075, L509.1000, L506.1000, L506.0400, L500.4100, L501.2300, L501.9520, L503.0105, L100.0100, L500.4050 #### [facility] [address] [place], [address] Nucleated RBC (Bld) [#/Vol] 0 10*3/uL Normal 0-5 [facility] Comment on above: Order Comment: Order Date: 11/02/24 Order Info: 0565-1 - PTHIN Performed By: #### L 503.6550, L506.0250, L503.6150, L503.6075, L509.1000, L506.1000, L506.0400, L500.4100, L501.2300, L501.9520, L503.0105, L100.0100, L500.4050 #### [facility] [address] [place], [place], [id number] RDW SD 48.3 fl High 35.1-43.9 [facility] Comment on above: Order Comment: Order Date: 11/02/24 Order Info: 0565-1 - PTHIN Performed By: #### L 503.6550, L506.0250, L503.6150, L503.6075, L509.1000, L506.1000, L506.0400, L500.4100, L501.2300, L501.9520, L503.0105, L100.0100, L500.4050 #### [facility] [address] [place], [place], [id number] Calculated very low density lipoprotein (VLDL) cholesterol measurementOrdered By: Susan Yañez on 02-19-2025 VLDL Cholesterol 12 mg/dL 5-40 [facility] Carbon dioxide, total [Moles /volume] in Central venous bloodOrdered By: Susan Yañez on 02-19-2025 CO2 [Moles/Vol] 22.7 mmol/L 21.0-32.0 [facility] Chloride assayOrdered By: Merline Yañez on 02-19-2025 Chloride [Moles/Vol] 106 mmol/L 98-108 [facility] Comprehensive Metabolic Prof ilon 02-19-2025 Albumin [Mass/Vol] 3.7 g/dL Normal 3.4-4.8 [facility] Comment on above: Order Comment: Order Date: 11/02/24 Order Info: 0565-1 - PTHIN Performed By: #### L 503.6550, L506.0250, L503.6150, L503.6075, L509.1000, L506.1000, L506.0400, L500.4100, L501.2300, L501.9520, L503.0105, L100.0100, L500.4050 #### [facility] [address] [place], [address] Albumin/Globulin [Mass ratio] 1.2 {ratio} Normal 0.9-2.4 [facility] Comment on above: Order Comment: Order Date: 11/02/24 Order Info: 0565-1 - PTHIN Performed By: #### L 503.6550, L506.0250, L503.6150, L503.6075, L509.1000, L506.1000, L506.0400, L500.4100, L501.2300, L501.9520, L503.0105, L100.0100, L500.4050 #### [facility] [address] [place], [address] ALK PHOS 108 U/L High 35-104 [facility] Comment on above: Order Comment: Order Date: 11/02/24 Order Info: 0565-1 - PTHIN Performed By: #### L 503.6550, L506.0250, L503.6150, L503.6075, L509.1000, L506.1000, L506.0400, L500.4100, L501.2300, L501.9520, L503.0105, L100.0100, L500.4050 #### [facility] [address] [place], [address] ALT [Catalytic activity/Vol] 11 U/L Normal <=34 [facility] Comment on above: Order Comment: Order Date: 11/02/24 Order Info: 0565-1 - PTHIN Performed By: #### L 503.6550, L506.0250, L503.6150, L503.6075, L509.1000, L506.1000, L506.0400, L500.4100, L501.2300, L501.9520, L503.0105, L100.0100, L500.4050 #### [facility] [address] [place], [address] AST [Catalytic activity/Vol] 22 U/L Normal <=31 [facility] Comment on above: Order Comment: Order Date: 11/02/24 Order Info: 0565-1 - PTHIN Performed By: #### L 503.6550, L506.0250, L503.6150, L503.6075, L509.1000, L506.1000, L506.0400, L500.4100, L501.2300, L501.9520, L503.0105, L100.0100, L500.4050 #### [facility] [address] [place], [address] Bilirubin [Mass/Vol] 0.31 mg/dL Normal 0.00-1.30 [facility] Comment on above: Order Comment: Order Date: 11/02/24 Order Info: 0565-1 - PTHIN Performed By: #### L 503.6550, L506.0250, L503.6150, L503.6075, L509.1000, L506.1000, L506.0400, L500.4100, L501.2300, L501.9520, L503.0105, L100.0100, L500.4050 #### [facility] [address] [place], [address] BUN/CRE 11.8 RATIO Normal 10-20 [facility] Comment on above: Order Comment: Order Date: 11/02/24 Order Info: 0565-1 - PTHIN Performed By: #### L 503.6550, L506.0250, L503.6150, L503.6075, L509.1000, L506.1000, L506.0400, L500.4100, L501.2300, L501.9520, L503.0105, L100.0100, L500.4050 #### [facility] [address] [place], [address] Calcium [Mass/Vol] 9.1 mg/dL Normal 7.6-11.0 [facility] Comment on above: Order Comment: Order Date: 11/02/24 Order Info: 0565-1 - PTHIN Performed By: #### L 503.6550, L506.0250, L503.6150, L503.6075, L509.1000, L506.1000, L506.0400, L500.4100, L501.2300, L501.9520, L503.0105, L100.0100, L500.4050 #### [facility] [address] [place], [address] Chloride [Moles/Vol] 106 mmol/L Normal 98-108 [facility] Comment on above: Order Comment: Order Date: 11/02/24 Order Info: 0565-1 - PTHIN Performed By: #### L 503.6550, L506.0250, L503.6150, L503.6075, L509.1000, L506.1000, L506.0400, L500.4100, L501.2300, L501.9520, L503.0105, L100.0100, L500.4050 #### [facility] [address] [place], [address] CO2 [Moles/Vol] 22.7 mmol/L Normal 21.0-32.0 [facility] Comment on above: Order Comment: Order Date: 11/02/24 Order Info: 0565-1 - PTHIN Performed By: #### L 503.6550, L506.0250, L503.6150, L503.6075, L509.1000, L506.1000, L506.0400, L500.4100, L501.2300, L501.9520, L503.0105, L100.0100, L500.4050 #### [facility] [address] [place], [address] Creatinine [Mass/Vol] 1.52 mg/dL High 0.70-1.20 [facility] Comment on above: Order Comment: Order Date: 11/02/24 Order Info: 0565-1 - PTHIN Performed By: #### L 503.6550, L506.0250, L503.6150, L503.6075, L509.1000, L506.1000, L506.0400, L500.4100, L501.2300, L501.9520, L503.0105, L100.0100, L500.4050 #### [facility] [address] [place], [address] GAP 13 Normal 5-15 [facility] Comment on above: Order Comment: Order Date: 11/02/24 Order Info: 0565-1 - PTHIN Performed By: #### L 503.6550, L506.0250, L503.6150, L503.6075, L509.1000, L506.1000, L506.0400, L500.4100, L501.2300, L501.9520, L503.0105, L100.0100, L500.4050 #### [facility] [address] [place], [id number] GFR/1.73 sq M.predicted among non-blacks MDRD (S/P/Bld) [Vol rate/Area] 34 mL/min/{1.73_m2} Low >60 [facility] Comment on above: Order Comment: Order Date: 11/02/24 Order Info: 0565-1 - PTHIN Result Comment: mL/m in/1.73m2 CKD-EPI Creatinine Equation (2020) Performed By: #### L 503.6550, L506.0250, L503.6150, L503.6075, L509.1000, L506.1000, L506.0400, L500.4100, L501.2300, L501.9520, L503.0105, L100.0100, L500.4050 #### [facility] [address] [place], [id number] Globulin (S) [Mass/Vol] 3.1 g/dL Normal 2.2-4.2 [facility] Comment on above: Order Comment: Order Date: 11/02/24 Order Info: 0565-1 - PTHIN Performed By: #### L 503.6550, L506.0250, L503.6150, L503.6075, L509.1000, L506.1000, L506.0400, L500.4100, L501.2300, L501.9520, L503.0105, L100.0100, L500.4050 #### [facility] [address] [place], [address] Glucose [Mass/Vol] 51 mg/dL Low 70-99 [facility] Comment on above: Order Comment: Order Date: 11/02/24 Order Info: 0565-1 - PTHIN Performed By: #### L 503.6550, L506.0250, L503.6150, L503.6075, L509.1000, L506.1000, L506.0400, L500.4100, L501.2300, L501.9520, L503.0105, L100.0100, L500.4050 #### [facility] [address] [place], [address] Potassium [Moles/Vol] 3.6 mmol/L Normal 3.3-5.1 [facility] Comment on above: Order Comment: Order Date: 11/02/24 Order Info: 0565-1 - PTHIN Performed By: #### L 503.6550, L506.0250, L503.6150, L503.6075, L509.1000, L506.1000, L506.0400, L500.4100, L501.2300, L501.9520, L503.0105, L100.0100, L500.4050 #### [facility] [address] [place], [address] Sodium [Moles/Vol] 142 mmol/L Normal 133-145 [facility] Comment on above: Order Comment: Order Date: 11/02/24 Order Info: 0565-1 - PTHIN Performed By: #### L 503.6550, L506.0250, L503.6150, L503.6075, L509.1000, L506.1000, L506.0400, L500.4100, L501.2300, L501.9520, L503.0105, L100.0100, L500.4050 #### [facility] [address] [place], [place], [address] T PROT 6.8 g/dL Normal 5.9-8.4 [facility] Comment on above: Order Comment: Order Date: 11/02/24 Order Info: 0565-1 - PTHIN Performed By: #### L 503.6550, L506.0250, L503.6150, L503.6075, L509.1000, L506.1000, L506.0400, L500.4100, L501.2300, L501.9520, L503.0105, L100.0100, L500.4050 #### [facility] [address] [place], [address] Urea nitrogen [Mass/Vol] 18 mg/dL Normal 4-19 [facility] Comment on above: Order Comment: Order Date: 11/02/24 Order Info: 0565-1 - PTHIN Performed By: #### L 503.6550, L506.0250, L503.6150, L503.6075, L509.1000, L506.1000, L506.0400, L500.4100, L501.2300, L501.9520, L503.0105, L100.0100, L500.4050 #### [facility] [address] [place], [address] Eosinophil percentageOrdered By: Susan Yañez on 02-19-2025 Eosinophils/100 WBC (Bld) 1.2 % Normal 0-5 [facility] Comment on above: Order Comment: Order Date: 11/02/24 Order Info: 0565-1 - PTHIN Performed By: #### L 503.6550, L506.0250, L503.6150, L503.6075, L509.1000, L506.1000, L506.0400, L500.4100, L501.2300, L501.9520, L503.0105, L100.0100, L500.4050 #### [facility] [address] [place], [place], [id number] Erythrocyte distribution wid th (RBC) [Ratio]Ordered By: Susan Yañez on 02-19-2025 Erythrocyte distribution width (RBC) [Entitic vol] 48.3 fL High 35.1-43.9 [facility] Erythrocyte distribution wid th ratioOrdered By: Susan Yañez on 02-19-2025 Erythrocyte distribution width (RBC) [Ratio] 14.0 % Normal 11.6-14.6 [facility] Comment on above: Order Comment: Order Date: 11/02/24 Order Info: 0565-1 - PTHIN Performed By: #### L 503.6550, L506.0250, L503.6150, L503.6075, L509.1000, L506.1000, L506.0400, L500.4100, L501.2300, L501.9520, L503.0105, L100.0100, L500.4050 #### [facility] [address] [place], [place], [id number] GFR/1.73 sq M.predicted brisa g non-blacks MDRD (S/P/Bld) [Vol rate/Area]Ordered By: Susan Yañez on 02-19-2025 Estimated GFR (MDRD) Non-Af Amer 34 Low >60 [facility] Comment on above: mL/min/1.73m2 CKD-EP I Creatinine Equation (2020) Hemoglobin measurementOrdere d By: Susan Yañez on 02-19-2025 Hemoglobin (Bld) [Mass/Vol] 11.7 g/dL Low 12.0-15.0 [facility] Comment on above: Order Comment: Order Date: 11/02/24 Order Info: 0565-1 - PTHIN Performed By: #### L 503.6550, L506.0250, L503.6150, L503.6075, L509.1000, L506.1000, L506.0400, L500.4100, L501.2300, L501.9520, L503.0105, L100.0100, L500.4050 #### [facility] [address] [place], [address] Immature granulocytes/100 WB C Auto (Bld)Ordered By: Susan Yañez on 02-19-2025 Immature granulocytes/100 WBC (Bld) 0.200 % 0.0-0.9 [facility] Comment on above: IG% - Immature Granu locytes (promyelocytes, myelocytes and metamyelocytes) > 1% indicates that a LEFT SHIFT is Present. LDL calc ser/plasOrdered By: Susan Yañez on 02-19-2025 LDL Cholesterol, Calculated 93 mg/dL [facility] Comment on above: Vcrhsjqswk=854-615 m g/dL & Higher Isdu=570 mg/dL or greater Laboratory - Chemistry and C hemistry - challengeOrdered By: Susan Yañez on 02-19-2025 AST [Catalytic activity/Vol] 22 U/L <32 [facility] Lipid Profileon 02-19-2025 CHOL:HDL 2.32 Normal [facility] Comment on above: Order Comment: Order Date: 11/02/24 Order Info: 0565-1 - PTHIN Performed By: #### L 503.6550, L506.0250, L503.6150, L503.6075, L509.1000, L506.1000, L506.0400, L500.4100, L501.2300, L501.9520, L503.0105, L100.0100, L500.4050 #### [facility] [address] [place], [place], [id number] Cholesterol [Mass/Vol] 184 mg/dL Normal <=200 [facility] Comment on above: Order Comment: Order Date: 11/02/24 Order Info: 0565-1 - PTHIN Result Comment: Chol esterol level, Desirable <200 mg/dL Borderline high cholesterol 200-239 mg/dL High cholesterol >=240 mg/dL Recommendations of the NCEP Adult Treatment Panel for the following risk-cutoff thresholds for the [place] population. Performed By: #### L 503.6550, L506.0250, L503.6150, L503.6075, L509.1000, L506.1000, L506.0400, L500.4100, L501.2300, L501.9520, L503.0105, L100.0100, L500.4050 #### [facility] [address] [place], [address] Cholesterol in HDL [Mass/Vol] 79 mg/dL Normal [facility] Comment on above: Order Comment: Order Date: 11/02/24 Order Info: 0565-1 - PTHIN Result Comment: Nadia onal Cholesterol Education Program (NCEP) guidelines: <40 mg/dL: Low HDL-cholesterol (major risk factor for CHD) >= 60 mg/dL: High HDL-cholesterol (negative risk factor for CHD) HDL-cholesterol is affected by a number of factors, e.g. smoking, exercise, hormones, sex and age. Performed By: #### L 503.6550, L506.0250, L503.6150, L503.6075, L509.1000, L506.1000, L506.0400, L500.4100, L501.2300, L501.9520, L503.0105, L100.0100, L500.4050 #### [facility] [address] [place], [address] Cholesterol in LDL [Mass/Vol] 93 mg/dL Normal [facility] Comment on above: Order Comment: Order Date: 11/02/24 Order Info: 0565-1 - PTHIN Result Comment: Bord iyjlrr=669-297 mg/dL Higher Klvz=187 mg/dL or greater Performed By: #### L 503.6550, L506.0250, L503.6150, L503.6075, L509.1000, L506.1000, L506.0400, L500.4100, L501.2300, L501.9520, L503.0105, L100.0100, L500.4050 #### [facility] [address] [place], [address] Cholesterol in VLDL [Mass/Vol] 12 mg/dL Normal 5-40 [facility] Comment on above: Order Comment: Order Date: 11/02/24 Order Info: 0565-1 - PTHIN Performed By: #### L 503.6550, L506.0250, L503.6150, L503.6075, L509.1000, L506.1000, L506.0400, L500.4100, L501.2300, L501.9520, L503.0105, L100.0100, L500.4050 #### [facility] [address] [place], [place], [phone] Triglyceride [Mass/Vol] 60 mg/dL Normal [facility] Comment on above: Order Comment: Order Date: 11/02/24 Order Info: 0565- - PTHIN Result Comment: The drugs N-Acetylcysteine and Metamizole may falsely depress this assay. Normal range: <150 mg/dL Borderline High: 150-199 mg/dL High: 200-499 mg/dL Very High: >500 mg/dL Performed By: #### L 503.6550, L506.0250, L503.6150, L503.6075, L509.1000, L506.1000, L506.0400, L500.4100, L501.2300, L501.9520, L503.0105, L100.0100, L500.4050 #### [facility] [address] [place], [place], [id number] Lymphocytes Auto (Unsp spec) [#/Vol]Ordered By: Susan Yañez on 02-19-2025 Lymphocytes (Bld) [#/Vol] 2.78 10*3/uL 0.83-4.51 [facility] MCV (mean corpuscular volume ) determinationOrdered By: Susan Yañez on 02-19-2025 MCV (RBC) [Entitic vol] 94.4 fL Normal 81-99 [facility] Comment on above: Order Comment: Order Date: 11/02/24 Order Info: 0565-1 - PTHIN Performed By: #### L 503.6550, L506.0250, L503.6150, L503.6075, L509.1000, L506.1000, L506.0400, L500.4100, L501.2300, L501.9520, L503.0105, L100.0100, L500.4050 #### [facility] [address] [place], [place], [phone] ([phone]) Magnesiumon 02-19-2025 Magnesium [Mass/Vol] 2.1 mg/dL Normal 1.5-2.2 [facility] Comment on above: Order Comment: Order Date: 11/02/24 Order Info: 0565-1 - PTHIN Performed By: #### L 503.6550, L506.0250, L503.6150, L503.6075, L509.1000, L506.1000, L506.0400, L500.4100, L501.2300, L501.9520, L503.0105, L100.0100, L500.4050 #### [facility] [address] [place], [place], [phone] Magnesium (Unsp spec) [Mass/ Vol]Ordered By: Susan Yañez on 02-19-2025 Magnesium [Mass/Vol] 2.1 mg/dL 1.5-2.2 [facility] Mean corpuscular hemoglobin (MCH) determinationOrdered By: Susan Yañez on 02-19-2025 MCH (RBC) [Entitic mass] 29.8 pg Normal 27.0-32.0 [facility] Comment on above: Order Comment: Order Date: 11/02/24 Order Info: 0565-1 - PTHIN Performed By: #### L 503.6550, L506.0250, L503.6150, L503.6075, L509.1000, L506.1000, L506.0400, L500.4100, L501.2300, L501.9520, L503.0105, L100.0100, L500.4050 #### [facility] [address] [place], [place], [phone] (970) Mean corpuscular hemoglobin concentration (MCHC) determinationOrdered By: Susan Yañez on 02-19-2025 MCHC (RBC) [Mass/Vol] 31.6 g/dL Low 32-36 [facility] Comment on above: Order Comment: Order Date: 11/02/24 Order Info: 0565-1 - PTHIN Performed By: #### L 503.6550, L506.0250, L503.6150, L503.6075, L509.1000, L506.1000, L506.0400, L500.4100, L501.2300, L501.9520, L503.0105, L100.0100, L500.4050 #### [facility] [address] [facility] [place], [place], [address] Mean platelet volume determi nationOrdered By: Susan Yañez on 02-19-2025 Platelet mean volume (Bld) [Entitic vol] 9.7 fL Normal 6.2-12.0 [facility] Comment on above: Order Comment: Order Date: 11/02/24 Order Info: 0565-1 - PTHIN Performed By: #### L 503.6550, L506.0250, L503.6150, L503.6075, L509.1000, L506.1000, L506.0400, L500.4100, L501.2300, L501.9520, L503.0105, L100.0100, L500.4050 #### [facility] [address] [place], [place], [address] Monocyte percentageOrdered B y: Susan Yañez on 02-19-2025 Monocytes/100 WBC (Bld) 9.9 % Normal 0-10 [facility] Comment on above: Order Comment: Order Date: 11/02/24 Order Info: 0565-1 - PTHIN Performed By: #### L 503.6550, L506.0250, L503.6150, L503.6075, L509.1000, L506.1000, L506.0400, L500.4100, L501.2300, L501.9520, L503.0105, L100.0100, L500.4050 #### [facility] [address] [place], [address] Neutrophil percentageOrdered By: Susan Yañez on 02-19-2025 Neutrophils/100 WBC (Bld) 33.8 % Low 47-70 [facility] Comment on above: Order Comment: Order Date: 11/02/24 Order Info: 0565-1 - PTHIN Performed By: #### L 503.6550, L506.0250, L503.6150, L503.6075, L509.1000, L506.1000, L506.0400, L500.4100, L501.2300, L501.9520, L503.0105, L100.0100, L500.4050 #### [facility] [address] [place], [address] Nucleated red blood cell per centageOrdered By: Susan Yañez on 02-19-2025 Nucleated RBC/100 WBC (Bld) [Ratio] 0 % 0-5 [facility] PTH intactOrdered By: Susan orozco on 02-19-2025 Parathyroid Hormone (Intact) 83 pg/mL High [facility] PTHINon 02-19-2025 PTH 83 pg/mL High [facility] Comment on above: Order Comment: Order Date: 11/02/24 Order Info: 0565-1 - PTHIN Performed By: #### L 503.6550, L506.0250, L503.6150, L503.6075, L509.1000, L506.1000, L506.0400, L500.4100, L501.2300, L501.9520, L503.0105, L100.0100, L500.4050 #### [facility] [address] [place], [address] Phosphoruson 02-19-2025 Phosphate [Mass/Vol] 3.2 mg/dL Normal 2.7-4.5 [facility] Comment on above: Order Comment: Order Date: 11/02/24 Order Info: 0565-1 - PTHIN Performed By: #### L 503.6550, L506.0250, L503.6150, L503.6075, L509.1000, L506.1000, L506.0400, L500.4100, L501.2300, L501.9520, L503.0105, L100.0100, L500.4050 #### [facility] [facility] [address] [place], [place], [address] [phone] Platelet countOrdered By: Merline Yañez on 02-19-2025 Platelets (Bld) [#/Vol] 241 10*3/uL Normal 150-450 [facility] Comment on above: Order Comment: Order Date: 11/02/24 Order Info: 0565-1 - PTHIN Performed By: #### L 503.6550, L506.0250, L503.6150, L503.6075, L509.1000, L506.1000, L506.0400, L500.4100, L501.2300, L501.9520, L503.0105, L100.0100, L500.4050 #### [facility] [address] [facility] [place], [place], [address] Potassium (Unsp spec) [Mass/ Vol]Ordered By: Susan Yañez on 02-19-2025 Potassium [Moles/Vol] 3.6 mmol/L 3.3-5.1 [facility] Screening total cholesterol/ high density lipoprotein (HDL) cholesterol ratioOrdered By: Susan Yañez on 02-19-2025 Cholesterol.total/Sonia sterol in HDL [Mass ratio] 2.32 {ratio} [facility] Serum creatinine measurement (mass/volume)Ordered By: Susan Yañez on 02-19-2025 Creatinine [Mass/Vol] 1.52 mg/dL High 0.70-1.20 [facility] Serum globulin measurementOr dered By: Susan Yañez on 02-19-2025 Globulin (S) [Mass/Vol] 3.1 g/dL 2.2-4.2 [facility] Serum glucose measurement (m ass/volume)Ordered By: Susan Yañez on 02-19-2025 Glucose [Mass/Vol] 51 mg/dL Low 70-99 [facility] Serum or plasma alanine berrios otransferase (ALT) measurementOrdered By: Susan Yañez on 02-19-2025 ALT [Catalytic activity/Vol] 11 U/L <35 [facility] Serum or plasma albumin yue urement (mass/volume)Ordered By: Susan Yañez on 02-19-2025 Albumin [Mass/Vol] 3.7 g/dL 3.4-4.8 [facility] Serum or plasma albumin/glob ulin mass ratioOrdered By: Susan Yañez on 02-19-2025 Albumin/Globulin [Mass ratio] 1.2 {ratio} 0.9-2.4 [facility] Serum or plasma alkaline westley sphatase measurementOrdered By: Susan Yañez on 02-19-2025 ALP [Catalytic activity/Vol] 108 U/L High 35-104 [facility] Serum or plasma calcium yue urement (mass/volume)Ordered By: Susan Yañez on 02-19-2025 Calcium [Mass/Vol] 9.1 mg/dL 7.6-11.0 [facility] Serum or plasma cholesterol in HDL measurement (mass/volume)Ordered By: Susan Yañez on 02-19-2025 Cholesterol in HDL [Mass/Vol] 79 mg/dL >40 [facility] Comment on above: National Cholesterol Education Program (NCEP) guidelines:<40 mg/dL: Low HDL-cholesterol (major risk factor for CHD)>= 60 mg/dL: High HDL-cholesterol (negative risk factor for CHD)HDL-cholesterol is affected by a number of factors, e.g. smoking, exercise, hormones, sex and age. Serum or plasma cholesterol measurement (mass/volume)Ordered By: Susan Yañez on 02-19-2025 Cholesterol [Mass/Vol] 184 mg/dL <201 [facility] Comment on above: Cholesterol level, D esirable <200 mg/dLBorderline high cholesterol 200-239 mg/dLHigh cholesterol >=240 mg/dLRecommendations of the NCEP Adult Treatment Panel for the following risk-cutoff thresholds for the [place] population. Serum or plasma urea nitroge n measurement (mass/volume)Ordered By: Susan Yañez on 02-19-2025 Urea nitrogen [Mass/Vol] 18 mg/dL 4-19 [facility] Serum phosphorus measurement Ordered By: Susan Yañez on 02-19-2025 Phosphorus Level 3.2 mg/dL 2.7-4.5 [facility] Sodium levelOrdered By: Susan Yañez on 02-19-2025 Sodium [Moles/Vol] 142 mmol/L 133-145 [facility] Total proteinOrdered By: Shayan Yañez on 02-19-2025 Protein [Mass/Vol] 6.8 g/dL 5.9-8.4 [facility] Triglycerides measurementOrd ered By: Susan Yañez on 02-19-2025 Triglyceride [Mass/Vol] 60 mg/dL <199 [facility] Comment on above: The drugs N-Acetylcy steine and Metamizole may falsely depress this assay. Normal range: <150 mg/dLBorderline High: 150-199 mg/dLHigh: 200-499 mg/dLVery High: >500 mg/dL Vitamin D, 25-hydroxyOrdered By: Susan Yañez on 02-19-2025 Vitamin D 25-Hydroxy 24.8 ng/mL Low 30-100 [facility] Comment on above: Vitamin D StatusDefi ciency: <20 ng/mL (50nmol/L)Insufficiency: 20-30 ng/mL (50-75 nmol/L)Sufficiency: 30-100 ng/mL (75-250 nmol/L)Toxicity: >100 ng/mL (>250 nmol/L) Vitamin D,25 Hydroxyon 02-19 Vitamin D 25-OH 24.8 ng/mL Low 30-100 [facility] Comment on above: Order Comment: Order Date: 11/02/24 Order Info: 2132-9 - B12 Order Info: [id number] - VITD25 Result Comment: Gissell min D Status Deficiency: <20 ng/mL (50nmol/L) Insufficiency: 20-30 ng/mL (50-75 nmol/L) Sufficiency: 30-100 ng/mL (75-250 nmol/L) Toxicity: >100 ng/mL (>250 nmol/L) Performed By: #### L 503.5564, L506.0250, L503.6150, L503.6075, L509.1000, L506.1000, L506.0400, L500.4100, L501.2300, L501.9520, L503.0105, L100.0100, L500.4050 #### [facility] [address] [place], [place], [id number] White blood cell (WBC) count Ordered By: Susan Yañez on 02-19-2025 WBC (Bld) [#/Vol] 5.1 10*3/uL Normal 4.4-11.0 [facility] Comment on above: Order Comment: Order Date: 11/02/24 Order Info: 0565-1 - PTHIN Performed By: #### L 503.6550, L506.0250, L503.6150, L503.6075, L509.1000, L506.1000, L506.0400, L500.4100, L501.2300, L501.9520, L503.0105, L100.0100, L500.4050 #### [facility] [address] [place], [place], [id number]-VB-Cavupls DOrdered By: Rama Yañez on 11-02-2024 Vitamin D 25-Hydroxy 31.9 ng/mL [facility] Comment on above: Vitamin D 25(OH) Sta tus Range Deficiency <20 ng/mL (50nmol/L) Insufficiency 20 - 30 ng/mL (50 - 75 nmol/L) Sufficiency 30 - 100 ng/mL (75 - 250 nmol/L) Toxicity >100 ng/mL (>250 nmol/L) Absolute neutrophil countOrd ered By: Susan Yañez on 11-02-2024 Neutrophils (Bld) [#/Vol] 1.6 10*3/uL Low 2.0-7.7 [facility] Albumin to globulin ratioOrd ered By: Susan Yañez on 11-02-2024 Albumin/Globulin [Mass ratio] 0.8 {ratio} Low 0.9-2.4 [facility] Basophil percentageOrdered B y: Susan Yañez on 11-02-2024 Basophils/100 WBC (Bld) 0.7 % 0-1 [facility] Bilirubin, totalOrdered By: Susan Yañez on 11-02-2024 Bilirubin [Mass/Vol] 0.40 mg/dL 0.20-1.00 [facility] Comment on above: For patients on eltr ombopag therapy, use of Dimension [place] TBIL is not recommended. Blood urea nitrogen (BUN)/cr eatinine ratioOrdered By: Susan Yañez on 11-02-2024 Urea nitrogen/Creatinine [Mass ratio] 13.1 mg/mg 09-02 [facility] CBC W/Diff, Automatedon 10-15 Absolute Lymph 2.05 X10 3/uL Normal 0.83-4.51 [facility] Comment on above: Order Comment: Order Date: 11/02/24 Order Info: 0184-1 - CBCD Performed By: #### L 503.6550, L506.0250, L503.6150, L503.6075, L509.1000, L506.1000, L506.0400, L500.4100, L501.2300, L501.9520, L503.0105, L100.0100, L500.4050 #### [facility] [address] [place], [place], [phone] Absolute Neut 1.6 X10 3/uL Low 2.0-7.7 [facility] Comment on above: Order Comment: Order Date: 11/02/24 Order Info: 0184-1 - CBCD Performed By: #### L 503.6550, L506.0250, L503.6150, L503.6075, L509.1000, L506.1000, L506.0400, L500.4100, L501.2300, L501.9520, L503.0105, L100.0100, L500.4050 #### [facility] [address] [place], [place], [phone] (420) Basophils/100 WBC (Bld) 0.7 % Normal 0-1 [facility] Comment on above: Order Comment: Order Date: 11/02/24 Order Info: 0184-1 - CBCD Performed By: #### L 503.6550, L506.0250, L503.6150, L503.6075, L509.1000, L506.1000, L506.0400, L500.4100, L501.2300, L501.9520, L503.0105, L100.0100, L500.4050 #### [facility] [address] [place], [address] Eosinophils/100 WBC (Bld) 1.9 % Normal 0-5 [facility] Comment on above: Order Comment: Order Date: 11/02/24 Order Info: 0184-1 - CBCD Performed By: #### L 503.6550, L506.0250, L503.6150, L503.6075, L509.1000, L506.1000, L506.0400, L500.4100, L501.2300, L501.9520, L503.0105, L100.0100, L500.4050 #### [facility] [address], [address] [phone]) Erythrocyte distribution width (RBC) [Ratio] 13.8 % Normal 11.6-14.6 [facility] Comment on above: Order Comment: Order Date: 11/02/24 Order Info: 0184-1 - CBCD Performed By: #### L 503.6550, L506.0250, L503.6150, L503.6075, L509.1000, L506.1000, L506.0400, L500.4100, L501.2300, L501.9520, L503.0105, L100.0100, L500.4050 #### [facility] [address] [place], [place], [phone] (042) Hematocrit (Bld) [Volume fraction] 36.7 % Low 37-47 [facility] Comment on above: Order Comment: Order Date: 11/02/24 Order Info: 0184-1 - CBCD Performed By: #### L 503.6550, L506.0250, L503.6150, L503.6075, L509.1000, L506.1000, L506.0400, L500.4100, L501.2300, L501.9520, L503.0105, L100.0100, L500.4050 #### [facility] [address] [place], [place], [id number] Hemoglobin (Bld) [Mass/Vol] 11.7 g/dL Low 12.0-15.0 [facility] Comment on above: Order Comment: Order Date: 11/02/24 Order Info: 0184- - CBCD Performed By: #### L 503.6550, L506.0250, L503.6150, L503.6075, L509.1000, L506.1000, L506.0400, L500.4100, L501.2300, L501.9520, L503.0105, L100.0100, L500.4050 #### [facility] [address] [place], [address] IG% 0.200 Normal 0.0-0.9 [facility] Comment on above: Order Comment: Order Date: 11/02/24 Order Info: 0184-1 - CBCD Result Comment: IG% - Immature Granulocytes (promyelocytes, myelocytes and metamyelocytes) > 1% indicates that a LEFT SHIFT is Present. Performed By: #### L 503.6550, L506.0250, L503.6150, L503.6075, L509.1000, L506.1000, L506.0400, L500.4100, L501.2300, L501.9520, L503.0105, L100.0100, L500.4050 #### [facility] [address] [place], [place], [phone] Lymphocytes/100 WBC (Bld) 49.8 % High 19-41 [facility] Comment on above: Order Comment: Order Date: 11/02/24 Order Info: 01802-12 - CBCD Performed By: #### L 503.6550, L506.0250, L503.6150, L503.6075, L509.1000, L506.1000, L506.0400, L500.4100, L501.2300, L501.9520, L503.0105, L100.0100, L500.4050 #### [facility] [address] [place], [address] MCH (RBC) [Entitic mass] 30.0 pg Normal 27.0-32.0 [facility] Comment on above: Order Comment: Order Date: 11/02/24 Order Info: 01802-12 - CBCD Performed By: #### L 503.6550, L506.0250, L503.6150, L503.6075, L509.1000, L506.1000, L506.0400, L500.4100, L501.2300, L501.9520, L503.0105, L100.0100, L500.4050 #### [facility] [address] [place], [address] MCHC (RBC) [Mass/Vol] 31.9 g/dL Low 32-36 [facility] Comment on above: Order Comment: Order Date: 11/02/24 Order Info: 01802-12 - CBCD Performed By: #### L 503.6550, L506.0250, L503.6150, L503.6075, L509.1000, L506.1000, L506.0400, L500.4100, L501.2300, L501.9520, L503.0105, L100.0100, L500.4050 #### [facility] [address] [place], [address] MCV (RBC) [Entitic vol] 94.1 fL Normal 81-99 [facility] Comment on above: Order Comment: Order Date: 11/02/24 Order Info: 0184-1 - CBCD Performed By: #### L 503.6550, L506.0250, L503.6150, L503.6075, L509.1000, L506.1000, L506.0400, L500.4100, L501.2300, L501.9520, L503.0105, L100.0100, L500.4050 #### [facility] [address] [place], [address] Monocytes/100 WBC (Bld) 8.0 % Normal 0-10 [facility] Comment on above: Order Comment: Order Date: 11/02/24 Order Info: 018-1 - CBCD Performed By: #### L 503.6550, L506.0250, L503.6150, L503.6075, L509.1000, L506.1000, L506.0400, L500.4100, L501.2300, L501.9520, L503.0105, L100.0100, L500.4050 #### [facility] [address] [place], [address] Neutrophils/100 WBC (Bld) 39.4 % Low 47-70 [facility] Comment on above: Order Comment: Order Date: 11/02/24 Order Info: 018- - CBCD Performed By: #### L 503.6550, L506.0250, L503.6150, L503.6075, L509.1000, L506.1000, L506.0400, L500.4100, L501.2300, L501.9520, L503.0105, L100.0100, L500.4050 #### [facility] [address] [place], [address] Nucleated RBC (Bld) [#/Vol] 0 10*3/uL Normal 0-5 [facility] Comment on above: Order Comment: Order Date: 11/02/24 Order Info: 0184-1 - CBCD Performed By: #### L 503.6550, L506.0250, L503.6150, L503.6075, L509.1000, L506.1000, L506.0400, L500.4100, L501.2300, L501.9520, L503.0105, L100.0100, L500.4050 #### [facility] [address] [place], [address] Platelet mean volume (Bld) [Entitic vol] 9.6 fL Normal 6.2-12.0 [facility] Comment on above: Order Comment: Order Date: 11/02/24 Order Info: 0184-1 - CBCD Performed By: #### L 503.6550, L506.0250, L503.6150, L503.6075, L509.1000, L506.1000, L506.0400, L500.4100, L501.2300, L501.9520, L503.0105, L100.0100, L500.4050 #### [facility] [address] [place], [address] Platelets (Bld) [#/Vol] 230 10*3/uL Normal 150-450 [facility] Comment on above: Order Comment: Order Date: 11/02/24 Order Info: 0184-1 - CBCD Performed By: #### L 503.6550, L506.0250, L503.6150, L503.6075, L509.1000, L506.1000, L506.0400, L500.4100, L501.2300, L501.9520, L503.0105, L100.0100, L500.4050 #### [facility] [address] [place], [address] RBC (Bld) [#/Vol] 3.90 10*6/uL Low 4.2-5.4 [facility] Comment on above: Order Comment: Order Date: 11/02/24 Order Info: 0184-1 - CBCD Performed By: #### L 503.6550, L506.0250, L503.6150, L503.6075, L509.1000, L506.1000, L506.0400, L500.4100, L501.2300, L501.9520, L503.0105, L100.0100, L500.4050 #### [facility] [address] [place], [address] RDW SD 47.6 fl High 35.1-43.9 [facility] Comment on above: Order Comment: Order Date: 11/02/24 Order Info: 0184-1 - CBCD Performed By: #### L 503.6550, L506.0250, L503.6150, L503.6075, L509.1000, L506.1000, L506.0400, L500.4100, L501.2300, L501.9520, L503.0105, L100.0100, L500.4050 #### [facility] [address] [place], [address] WBC (Bld) [#/Vol] 4.1 10*3/uL Low 4.4-11.0 [facility] Comment on above: Order Comment: Order Date: 11/02/24 Order Info: 0184-1 - CBCD Performed By: #### L 503.6550, L506.0250, L503.6150, L503.6075, L509.1000, L506.1000, L506.0400, L500.4100, L501.2300, L501.9520, L503.0105, L100.0100, L500.4050 #### [facility] [address] [place], [address] Carbon dioxide measurementOr dered By: Susan Yañez on 11-02-2024 CO2 [Moles/Vol] 26.0 mmol/L 21.0-32.0 [facility] Chloride measurementOrdered By: Susan Yañez on 11-02-2024 Chloride [Moles/Vol] 111 mmol/L High 98-107 [facility] Comprehensive Metabolic Prof ilon 11-02-2024 Albumin [Mass/Vol] 3.0 g/dL Low 3.2-5.0 [facility] Comment on above: Order Comment: Order Date: 11/02/24 Order Info: 0786- - CMP Order Info: [id number] - LIPID Order Info: 2776-11 - PHOS Order Info: 3016-01 - TSH Order Info: 2500-05 - TIBC Order Info: 2498-02 - FE Order Info: 2276-02 - DORIS Order Info: 2284-06 - FOLS Order Info: 3024-05 - T4F N Performed By: #### L 503.6550, L506.0250, L503.6150, L503.6075, L509.1000, L506.1000, L506.0400, L500.4100, L501.2300, L501.9520, L503.0105, L100.0100, L500.4050 #### [facility] [address] [place], [place], [id number] Albumin/Globulin [Mass ratio] 0.8 {ratio} Low 0.9-2.4 [facility] Comment on above: Order Comment: Order Date: 11/02/24 Order Info: 0786 - CMP Order Info: [id number] - LIPID Order Info: 2776-11 - PHOS Order Info: 3016-01 - TSH Order Info: 2500-05 - TIBC Order Info: 2498-02 - FE Order Info: 2276-02 - DORIS Order Info: 2284-06 - FOLS Order Info: 7 - T4F N Performed By: #### L 503.6550, L506.0250, L503.6150, L503.6075, L509.1000, L506.1000, L506.0400, L500.4100, L501.2300, L501.9520, L503.0105, L100.0100, L500.4050 #### [facility] [address] [place], [place], [id number] ALK P 101 U/L Normal 45-117 [facility] Comment on above: Order Comment: Order Date: 11/02/24 Order Info: 0786-1 - CMP Order Info: [id number] - LIPID Order Info: 2776-11 - PHOS Order Info: 3 - TSH Order Info: 2500-05 - TIBC Order Info: 2498-02 - FE Order Info: 2276-02 - DORIS Order Info: 2284-06 - FOLS Order Info: 3024-05 - T4F N Performed By: #### L 503.6550, L506.0250, L503.6150, L503.6075, L509.1000, L506.1000, L506.0400, L500.4100, L501.2300, L501.9520, L503.0105, L100.0100, L500.4050 #### [facility] [address] [place], [place], [id number] ALT [Catalytic activity/Vol] 16 U/L Normal 13-56 [facility] Comment on above: Order Comment: Order Date: 11/02/24 Order Info: 0786-1 - CMP Order Info: [id number] - LIPID Order Info: 2776-11 - PHOS Order Info: 3016-01 - TSH Order Info: 2500-05 - TIBC Order Info: 2498-02 - FE Order Info: 2276-02 - DORIS Order Info: 2284-06 - FOLS Order Info: 3024-05 - T4F N Performed By: #### L 503.6550, L506.0250, L503.6150, L503.6075, L509.1000, L506.1000, L506.0400, L500.4100, L501.2300, L501.9520, L503.0105, L100.0100, L500.4050 #### [facility] [address] [place], [address] AST [Catalytic activity/Vol] 17 U/L Normal 15-37 [facility] Comment on above: Order Comment: Order Date: 11/02/24 Order Info: 07-1 - CMP Order Info: [id number] - LIPID Order Info: 2776-11 - PHOS Order Info: 63 - TSH Order Info: 2500-05 - TIBC Order Info: 2498-02 - FE Order Info: 2276-02 - DORIS Order Info: 2284-06 - FOLS Order Info: 3024-05 - T4F N Performed By: #### L 503.6550, L506.0250, L503.6150, L503.6075, L509.1000, L506.1000, L506.0400, L500.4100, L501.2300, L501.9520, L503.0105, L100.0100, L500.4050 #### [facility] [address] [place], [address] Bilirubin [Mass/Vol] 0.40 mg/dL Normal 0.20-1.00 [facility] Comment on above: Order Comment: Order Date: 11/02/24 Order Info: 0786 - CMP Order Info: - LIPID Order Info: [id number] - PHOS Order Info: 3016-01 - TSH Order Info: 2500-05 - TIBC Order Info: 2498-02 - FE Order Info: 2276-02 - DORIS Order Info: 2284-06 - FOLS Order Info: 302- - T4F N Result Comment: For patients on eltrombopag therapy, use of Dimension [place] TBIL is not recommended. Performed By: #### L 503.6550, L506.0250, L503.6150, L503.6075, L509.1000, L506.1000, L506.0400, L500.4100, L501.2300, L501.9520, L503.0105, L100.0100, L500.4050 #### [facility] [address] [place], [address] BUN/CRE 13.1 RATIO Normal 10-20 [facility] Comment on above: Order Comment: Order Date: 11/02/24 Order Info: 0786- - CMP Order Info: [id number] - LIPID Order Info: 2776-11 - PHOS Order Info: 3016-01 - TSH Order Info: 2500-05 - TIBC Order Info: 2498-02 - FE Order Info: 2276-02 - DORIS Order Info: 2284-06 - FOLS Order Info: 3024-05 - T4F N Performed By: #### L 503.6550, L506.0250, L503.6150, L503.6075, L509.1000, L506.1000, L506.0400, L500.4100, L501.2300, L501.9520, L503.0105, L100.0100, L500.4050 #### [facility] [address] [place], [place], [id number] CA,Total 9.1 mg/dL Normal 8.5-10.1 [facility] Comment on above: Order Comment: Order Date: 11/02/24 Order Info: 0786 - CMP Order Info: - LIPID Order Info: [id number] - PHOS Order Info: 3016-01 - TSH Order Info: 2500-05 - TIBC Order Info: 2498-02 - FE Order Info: 2276-02 - DORIS Order Info: 2284-06 - FOLS Order Info: 3024-05 - T4F N Performed By: #### L 503.6550, L506.0250, L503.6150, L503.6075, L509.1000, L506.1000, L506.0400, L500.4100, L501.2300, L501.9520, L503.0105, L100.0100, L500.4050 #### [facility] [address] [place], [place], [id number] Chloride [Moles/Vol] 111 mmol/L High 98-107 [facility] Comment on above: Order Comment: Order Date: 11/02/24 Order Info: 07 - CMP Order Info: [id number] - LIPID Order Info: 2776-11 - PHOS Order Info: 3016-01 - TSH Order Info: 2500-05 - TIBC Order Info: 2498-02 - FE Order Info: 2276-02 - DORIS Order Info: 2284-06 - FOLS Order Info: 3024-05 - T4F N Performed By: #### L 503.6550, L506.0250, L503.6150, L503.6075, L509.1000, L506.1000, L506.0400, L500.4100, L501.2300, L501.9520, L503.0105, L100.0100, L500.4050 #### [facility] [address] [place], [place], [id number] CO2 [Moles/Vol] 26.0 mmol/L Normal 21.0-32.0 [facility] Comment on above: Order Comment: Order Date: 11/02/24 Order Info: 785-11 - CMP Order Info: - LIPID Order Info: 2776-11 - PHOS Order Info: 3016-01 - TSH Order Info: 2500-05 - TIBC Order Info: 2498-02 FE Order Info: 2276-02 - DORIS Order Info: 2284-06 - FOLS Order Info: 3024-05 T4F N Performed By: #### L 503.6550, L506.0250, L503.6150, L503.6075, L509.1000, L506.1000, L506.0400, L500.4100, L501.2300, L501.9520, L503.0105, L100.0100, L500.4050 #### [facility] [address] [place], [place], [id number] Creatinine [Mass/Vol] 1.60 mg/dL High 0.55-1.02 [facility] Comment on above: Order Comment: Order Date: 11/02/24 Order Info: 785-11 - CMP Order Info: 00250-4 - LIPID Order Info: 2776-11 - PHOS Order Info: 3 - TSH Order Info: 2500-05 - TIBC Order Info: 2498-02 - FE Order Info: 2276-02 - DORIS Order Info: 8 - FOLS Order Info: 3024-05 - T4F N Result Comment: The validity of the calculated GFR GFRAA in patients over 70 years has not been determined. Clinical correlation is essential. Performed By: #### L 503.6550, L506.0250, L503.6150, L503.6075, L509.1000, L506.1000, L506.0400, L500.4100, L501.2300, L501.9520, L503.0105, L100.0100, L500.4050 #### [facility] [address] [place], [place], [id number] EST GFR - AA 40 mL/min Low >60 [facility] Comment on above: Order Comment: Order Date: 11/02/24 Order Info: 07 - CMP Order Info: [id number] - LIPID Order Info: 2776-11 - PHOS Order Info: 3016-01 - TSH Order Info: 2500-05 - TIBC Order Info: 2498-02 - FE Order Info: 2276-02 - DORIS Order Info: 2284-06 - FOLS Order Info: 3024-05 T4F N Result Comment: Afri can Palestinian GFR Calc Performed By: #### L 503.6550, L506.0250, L503.6150, L503.6075, L509.1000, L506.1000, L506.0400, L500.4100, L501.2300, L501.9520, L503.0105, L100.0100, L500.4050 #### [facility] [address] [place], [place], [address] GAP 5 Normal 5-15 [facility] Comment on above: Order Comment: Order Date: 11/02/24 Order Info: 07 - CMP Order Info: - LIPID Order Info: [id number] - PHOS Order Info: 3016-01 - TSH Order Info: 2500-05 - TIBC Order Info: 2498-02 - FE Order Info: 2276-02 - DORIS Order Info: 2284-06 - FOLS Order Info: 3024-05 T4F N Performed By: #### L 503.6550, L506.0250, L503.6150, L503.6075, L509.1000, L506.1000, L506.0400, L500.4100, L501.2300, L501.9520, L503.0105, L100.0100, L500.4050 #### [facility] [address] [facility] [place], [place], [id number] (939) GFR/1.73 sq M.predicted among non-blacks MDRD (S/P/Bld) [Vol rate/Area] 33 mL/min/{1.73_m2} Low >60 [facility] Comment on above: Order Comment: Order Date: 11/02/24 Order Info: 07 - CMP Order Info: [id number] - LIPID Order Info: [id number] - PHOS Order Info: 3 - TSH Order Info: 2500-05 - TIBC Order Info: 2498-02 - FE Order Info: 2276-02 - DORIS Order Info: 2284-06 - FOLS Order Info: 3024-05 - T4F N Result Comment: Non- GFR Calc Performed By: #### L 503.6550, L506.0250, L503.6150, L503.6075, L509.1000, L506.1000, L506.0400, L500.4100, L501.2300, L501.9520, L503.0105, L100.0100, L500.4050 #### [facility] [address] [place], [place], [id number] (042) Globulin (S) [Mass/Vol] 3.8 g/dL Normal 2.2-4.2 [facility] Comment on above: Order Comment: Order Date: 11/02/24 Order Info: 0786 - CMP Order Info: [id number] - LIPID Order Info: 2776-11 - PHOS Order Info: 3 - TSH Order Info: 2500-05 - TIBC Order Info: 2498-02 - FE Order Info: 2276-02 - DORIS Order Info: 2284-06 - FOLS Order Info: 3024-7 - T4F N Performed By: #### L 503.6550, L506.0250, L503.6150, L503.6075, L509.1000, L506.1000, L506.0400, L500.4100, L501.2300, L501.9520, L503.0105, L100.0100, L500.4050 #### [facility] [address] [place], [place], [id number] Glucose [Mass/Vol] 94 mg/dL Normal 74-106 [facility] Comment on above: Order Comment: Order Date: 11/02/24 Order Info: 07 - CMP Order Info: [id number] - LIPID Order Info: 2776-11 - PHOS Order Info: 3016-01 - TSH Order Info: 2500-05 TIBC Order Info: 2498-02 - FE Order Info: 2276-02 - DORIS Order Info: 2284-06 - FOLS Order Info: 3024-05 - T4F N Performed By: #### L 503.6550, L506.0250, L503.6150, L503.6075, L509.1000, L506.1000, L506.0400, L500.4100, L501.2300, L501.9520, L503.0105, L100.0100, L500.4050 #### [facility] [address] [place], [place], [id number] Potassium [Moles/Vol] 3.8 mmol/L Normal 3.5-5.1 [facility] Comment on above: Order Comment: Order Date: 11/02/24 Order Info: 785-11 - CMP Order Info: - LIPID Order Info: [id number] - PHOS Order Info: 3016-01 - TSH Order Info: 2500-05 - TIBC Order Info: 2498-02 - FE Order Info: 2276-02 - DORIS Order Info: 2284-06 - FOLS Order Info: 7 - T4F N Performed By: #### L 503.6550, L506.0250, L503.6150, L503.6075, L509.1000, L506.1000, L506.0400, L500.4100, L501.2300, L501.9520, L503.0105, L100.0100, L500.4050 #### [facility] [address] [place], [address] Sodium [Moles/Vol] 142 mmol/L Normal 136-145 [facility] Comment on above: Order Comment: Order Date: 11/02/24 Order Info: 785-11 - CMP Order Info: - LIPID Order Info: [id number] - PHOS Order Info: 3016-01 - TSH Order Info: 2500-05 TIBC Order Info: 2498-02 Order Info: 2276-02 - DORIS Order Info: 2284-06 - FOLS Order Info: 3024-05 - T4F N Performed By: #### L 503.6550, L506.0250, L503.6150, L503.6075, L509.1000, L506.1000, L506.0400, L500.4100, L501.2300, L501.9520, L503.0105, L100.0100, L500.4050 #### [facility] [address] [place], [place], [address] T PROT 6.8 g/dL Normal 6.4-8.2 [facility] Comment on above: Order Comment: Order Date: 11/02/24 Order Info: 785-11 - CMP Order Info: - LIPID Order Info: 2776-11 - PHOS Order Info: 3016-01 - TSH Order Info: 2500-05 - TIBC Order Info: 2498-02 - FE Order Info: 2276-02 - DORIS Order Info: 2284-06 - FOLS Order Info: 3024-05 - T4F N Performed By: #### L 503.6550, L506.0250, L503.6150, L503.6075, L509.1000, L506.1000, L506.0400, L500.4100, L501.2300, L501.9520, L503.0105, L100.0100, L500.4050 #### [facility] [address] [place], [place], [id number] Urea nitrogen [Mass/Vol] 21 mg/dL High 7-18 [facility] Comment on above: Order Comment: Order Date: 11/02/24 Order Info: 0786-1 - CMP Order Info: 42666-5 - LIPID Order Info: 2777-1 - PHOS Order Info: 3016-3 - TSH Order Info: 2500-7 - TIBC Order Info: 8148-4 - FE Order Info: 472-4 - DORIS Order Info: 7988 - FOLS Order Info: 4840- - T4F N Performed By: #### L 503.6550, L506.0250, L503.6150, L503.6075, L509.1000, L506.1000, L506.0400, L500.4100, L501.2300, L501.9520, L503.0105, L100.0100, L500.4050 #### [facility] [address] [place], [place], [address] Direct serum free thyroxine (FT4) measurementOrdered By: Susan Yañez on 11-02-2024 Free T4 [Mass/Vol] 0.84 ng/dL 0.76-1.46 [facility] Eosinophil percentageOrdered By: Susan Yañez on 11-02-2024 Eosinophils/100 WBC (Bld) 1.9 % 0-5 [facility] Erythrocyte distribution wid th (RBC) [Ratio]Ordered By: Susan Yañez on 11-02-2024 Erythrocyte distribution width (RBC) [Entitic vol] 47.6 fL High 35.1-43.9 [facility] Erythrocyte distribution wid th ratioOrdered By: Susan Yañez on 11-02-2024 Erythrocyte distribution width (RBC) [Ratio] 13.8 % 11.6-14.6 [facility] Estimated glomerular filtrat ion rate (GFR) AmericanOrdered By: Susan Yañez on 11-02-2024 Estimated GFR (MDRD) Amer 40 mL/min Low >60 [facility] Comment on above: GFR Calc Ferritinon 11-02-2024 Ferritin [Mass/Vol] 79 ng/mL Normal 8-252 [facility] Comment on above: Order Comment: Order Date: 11/02/24 Order Info: 0565-1 - PTHIN Performed By: #### L 503.6550, L506.0250, L503.6150, L503.6075, L509.1000, L506.1000, L506.0400, L500.4100, L501.2300, L501.9520, L503.0105, L100.0100, L500.4050 #### [facility] [address] [place], [address] Ferritin measurementOrdered By: Susan Yañez on 11-02-2024 Ferritin [Mass/Vol] 79 ng/mL 8-252 [facility] Folates, (Folic Acid)on 10-15 FOLATES 9.40 ng/mL Normal 3.1-55.4 [facility] Comment on above: Order Comment: Order Date: 11/02/24 Order Info: 0565-1 - PTHIN Performed By: #### L 503.6550, L506.0250, L503.6150, L503.6075, L509.1000, L506.1000, L506.0400, L500.4100, L501.2300, L501.9520, L503.0105, L100.0100, L500.4050 #### [facility] [address] [place], [address] Folic acid measurementOrdere d By: Susan Yañez on 11-02-2024 Folate 9.40 ng/mL 3.1-55.4 [facility] Glomerular filtration rate ( GFR) estimationOrdered By: Susan Yañez on 11-02-2024 Estimated GFR (MDRD) Non-Af Amer 33 mL/min Low >60 [facility] Comment on above: Non- GFR Calc Glucose measurementOrdered B y: Susan Yañez on 11-02-2024 Glucose [Mass/Vol] 94 mg/dL 74-106 [facility] Hematocrit Auto (Bld) [Volum e fraction]Ordered By: Susan Yañez on 11-02-2024 Hematocrit (Bld) [Volume fraction] 36.7 % Low 37-47 [facility] Hemoglobin measurementOrdere d By: Susan Yañez on 11-02-2024 Hemoglobin (Bld) [Mass/Vol] 11.7 g/dL Low 12.0-15.0 [facility] High density lipoprotein (HD L) measurementOrdered By: Susan Yañez on 11-02-2024 Cholesterol in HDL [Mass/Vol] 70 mg/dL >40 [facility] Comment on above: The drugs N-Acetylcy steine and Metamizole may falsely depress this assay. Reference Range HDL <40 mg/dL Low HDL Cholesterol HDL >or= 60 mg/dL High HDL Cholesterol Immature granulocytes/100 WB C Auto (Bld)Ordered By: Susan Yañez on 11-02-2024 Immature granulocytes/100 WBC (Bld) 0.200 % 0.0-0.9 [facility] Comment on above: IG% - Immature Granu locytes (promyelocytes, myelocytes and metamyelocytes) > 1% indicates that a LEFT SHIFT is Present. Intact parathyroid hormone ( iPTH) measurementOrdered By: Susan Yañez on 11-02-2024 Parathyroid Hormone (Intact) 105.0 pg/mL High 18.4-80.1 [facility] Ironon 11-02-2024 Iron [Mass/Vol] 64 ug/dL Normal 50-170 [facility] Comment on above: Order Comment: Order Date: 11/02/24 Order Info: 0786-1 - CMP Order Info: [id number] - LIPID Order Info: 2777-1 - PHOS Order Info: 3016-3 - TSH Order Info: 2500-7 - TIBC Order Info: 2498-4 - FE Order Info: 2276-4 - DORIS Order Info: 2284-8 - FOLS Order Info: 3024-7 - T4F N Performed By: #### L 503.6550, L506.0250, L503.6150, L503.6075, L509.1000, L506.1000, L506.0400, L500.4100, L501.2300, L501.9520, L503.0105, L100.0100, L500.4050 #### [facility] [address] [place], [place], [id number] Iron (Unsp spec) [Mass/Mass] Ordered By: Susan Yañez on 11-02-2024 Iron [Mass/Vol] 64 ug/dL 50-170 [facility] Iron Binding Capacity,Totalo n 11-02-2024 TIBC 239 ug/dL Low 250-450 [facility] Comment on above: Order Comment: Order Date: 11/02/24 Order Info: 785-11 - CMP Order Info: - LIPID Order Info: [id number] - PHOS Order Info: 3 - TSH Order Info: 25007 - TIBC Order Info: 4 - FE Order Info: 2276-02 - DORIS Order Info: 2284-06 - FOLS Order Info: 3023-7 - T4F N Performed By: #### L 503.6550, L506.0250, L503.6150, L503.6075, L509.1000, L506.1000, L506.0400, L500.4100, L501.2300, L501.9520, L503.0105, L100.0100, L500.4050 #### [facility] [address] [place], [place], [id number] Laboratory - Chemistry and C hemistry - challengeOrdered By: Susan Yañez on 11-02-2024 AST [Catalytic activity/Vol] 17 U/L 15-37 [facility] Lipid Profileon 11-02-2024 Cholesterol [Mass/Vol] 198 mg/dL Normal 200 [facility] Comment on above: Order Comment: Order Date: 11/02/24 Order Info: 785-11 - CMP Order Info: - LIPID Order Info: 2776-11 - PHOS Order Info: 6-3 - TSH Order Info: 25007 - TIBC Order Info: 2494 - FE Order Info: 2276-02 - DORIS Order Info: 2284-06 - FOLS Order Info: 3024-7 - T4F N Result Comment: <200 mg/dL Desirable 200-240 mg/dL Borderline >240 mg/dL High Risk Performed By: #### L 503.6550, L506.0250, L503.6150, L503.6075, L509.1000, L506.1000, L506.0400, L500.4100, L501.2300, L501.9520, L503.0105, L100.0100, L500.4050 #### [facility] [address] [place], [address] Cholesterol in HDL [Mass/Vol] 70 mg/dL Normal [facility] Comment on above: Order Comment: Order Date: 11/02/24 Order Info: 0786- - CMP Order Info: 83817-2 - LIPID Order Info: [id number] - PHOS Order Info: 3016-01 - TSH Order Info: 2500-05 - TIBC Order Info: 2498-4 - FE Order Info: 2276-4 - DORIS Order Info: 2284-8 - FOLS Order Info: 3024-7 - T4F N Result Comment: The drugs N-Acetylcysteine and Metamizole may falsely depress this assay. Reference Range HDL <40 mg/dL Low HDL Cholesterol HDL >or= 60 mg/dL High HDL Cholesterol Performed By: #### L 503.6550, L506.0250, L503.6150, L503.6075, L509.1000, L506.1000, L506.0400, L500.4100, L501.2300, L501.9520, L503.0105, L100.0100, L500.4050 #### [facility] [address] [place], [address] Cholesterol in LDL [Mass/Vol] 112 mg/dL Normal 0-130 [facility] Comment on above: Order Comment: Order Date: 11/02/24 Order Info: 0786- - CMP Order Info: [id number] - LIPID Order Info: 2776-11 - PHOS Order Info: 3 - TSH Order Info: 2500-05 - TIBC Order Info: 2498-02 - FE Order Info: 2276-02 - DORIS Order Info: 2284-06 - FOLS Order Info: 3024-05 T4F N Performed By: #### L 503.6550, L506.0250, L503.6150, L503.6075, L509.1000, L506.1000, L506.0400, L500.4100, L501.2300, L501.9520, L503.0105, L100.0100, L500.4050 #### [facility] [address] [place], [place], [id number] Cholesterol in VLDL [Mass/Vol] 16 mg/dL Normal 5-40 [facility] Comment on above: Order Comment: Order Date: 11/02/24 Order Info: 07 - CMP Order Info: - LIPID Order Info: [id number] - PHOS Order Info: 3016-01 - TSH Order Info: 2500-05 - TIBC Order Info: 2498-02 FE Order Info: 2276-02 - DORIS Order Info: 2284-06 - FOLS Order Info: 3024-05 T4F N Performed By: #### L 503.6550, L506.0250, L503.6150, L503.6075, L509.1000, L506.1000, L506.0400, L500.4100, L501.2300, L501.9520, L503.0105, L100.0100, L500.4050 #### [facility] [address] [place], [place], [id number] Triglyceride [Mass/Vol] 79 mg/dL Normal [facility] Comment on above: Order Comment: Order Date: 11/02/24 Order Info: 785-11 - CMP Order Info: 43621-1 - LIPID Order Info: 2776-11 - PHOS Order Info: 3016-01 - TSH Order Info: 2500-05 - TIBC Order Info: 2498-02 - FE Order Info: 2276-02 - DORIS Order Info: 2284-06 - FOLS Order Info: 3024-05 - T4F N Result Comment: The drugs N-Acetylcysteine and Metamizole may falsely depress this assay. Serum Triglycerides Reference Interval Normal <150 mg/dL Borderline high 150 - 199 mg/dL High 200 - 499 mg/dL Very High > or = 500 mg/dL Performed By: #### L 503.6550, L506.0250, L503.6150, L503.6075, L509.1000, L506.1000, L506.0400, L500.4100, L501.2300, L501.9520, L503.0105, L100.0100, L500.4050 #### [facility] [address] [place], [address] Low density lipoprotein (LDL ) cholesterol measurementOrdered By: Susan Yañez on 11-02-2024 Cholesterol in LDL [Mass/Vol] 112 mg/dL 0-130 [facility] Lymphocytes Auto (Unsp spec) [#/Vol]Ordered By: Susan Yañez on 11-02-2024 Lymphocytes (Bld) [#/Vol] 2.05 10*3/uL 0.83-4.51 [facility] Lymphocytes/100 WBC Auto (Un sp spec)Ordered By: Susan Yañez on 11-02-2024 Lymphocytes/100 WBC (Bld) 49.8 % High 19-41 [facility] MCV (mean corpuscular volume ) determinationOrdered By: Susan Yañez on 11-02-2024 MCV (RBC) [Entitic vol] 94.1 fL 81-99 [facility] Mean corpuscular hemoglobin (MCH) determinationOrdered By: Susan Yañez on 11-02-2024 MCH (RBC) [Entitic mass] 30.0 pg 27.0-32.0 [facility] Mean corpuscular hemoglobin concentration (MCHC) determinationOrdered By: Susan Yañez on 11-02-2024 MCHC (RBC) [Mass/Vol] 31.9 g/dL Low 32-36 [facility] Mean platelet volume determi nationOrdered By: Susan Yañez on 11-02-2024 Platelet mean volume (Bld) [Entitic vol] 9.6 fL 6.2-12.0 [facility] Monocyte percentageOrdered B y: Susan Halllloyd on 11-02-2024 Monocytes/100 WBC (Bld) 8.0 % 0-10 [facility] Neutrophil percentageOrdered By: Susan Halllloyd on 11-02-2024 Neutrophils/100 WBC (Bld) 39.4 % Low 47-70 [facility] Nucleated red blood cell per centageOrdered By: Susan Yañez on 11-02-2024 Nucleated RBC/100 WBC (Bld) [Ratio] 0 % 0-5 [facility] PTHINon 11-02-2024 PTH 105.0 pg/mL High 18.4-80.1 [facility] Comment on above: Order Comment: Order Date: 11/02/24 Order Info: 0565-1 - PTHIN Performed By: #### L 503.6550, L506.0250, L503.6150, L503.6075, L509.1000, L506.1000, L506.0400, L500.4100, L501.2300, L501.9520, L503.0105, L100.0100, L500.4050 #### [facility] [address] [place] [address]. [place], [address] Phosphoruson 11-02-2024 Phosphate [Mass/Vol] 3.4 mg/dL Normal 2.5-4.9 [facility] Comment on above: Order Comment: Order Date: 11/02/24 Order Info: 0786-1 - CMP Order Info: [id number] - LIPID Order Info: 2777-1 - PHOS Order Info: 3016-3 - TSH Order Info: 2500-7 - TIBC Order Info: 2498-4 - FE Order Info: 2276-4 - DORIS Order Info: 2284-8 - FOLS Order Info: 3024-7 - T4F N Performed By: #### L 503.6550, L506.0250, L503.6150, L503.6075, L509.1000, L506.1000, L506.0400, L500.4100, L501.2300, L501.9520, L503.0105, L100.0100, L500.4050 #### [facility] [place], [address] Phosphorus measurementOrdere d By: Susan Yañez on 11-02-2024 Phosphorus Level 3.4 mg/dL 2.5-4.9 [facility] Platelet countOrdered By: Merline Yañez on 11-02-2024 Platelets (Bld) [#/Vol] 230 10*3/uL 150-450 [facility] Potassium measurementOrdered By: Susan Yañez on 11-02-2024 Potassium [Moles/Vol] 3.8 mmol/L 3.5-5.1 [facility] RBC Auto (Bld) [#/Vol]Ordere d By: Susan Yañez on 11-02-2024 RBC (Bld) [#/Vol] 3.90 10*6/uL Low 4.2-5.4 [facility] Serum anion gap measurementO rdered By: Susan Yañez on 11-02-2024 Anion gap [Moles/Vol] 5 mmol/L 5-15 [facility] Serum globulin measurementOr dered By: Susan Yañez on 11-02-2024 Globulin (S) [Mass/Vol] 3.8 g/dL 2.2-4.2 [facility] Serum or plasma alanine berrios otransferase (ALT) measurementOrdered By: Susan Yañez on 11-02-2024 ALT [Catalytic activity/Vol] 16 U/L 13-56 [facility] Serum or plasma albumin yue urement (mass/volume)Ordered By: Susan Yañez on 11-02-2024 Albumin [Mass/Vol] 3.0 g/dL Low 3.2-5.0 [facility] Serum or plasma alkaline westley sphatase measurementOrdered By: Susan Yañez on 11-02-2024 ALP [Catalytic activity/Vol] 101 U/L 45-117 [facility] Serum or plasma calcium yue urement (mass/volume)Ordered By: Susan Yañez on 11-02-2024 Calcium [Mass/Vol] 9.1 mg/dL 8.5-10.1 [facility] Serum or plasma cholesterol measurement (mass/volume)Ordered By: Susan Yañez on 11-02-2024 Cholesterol [Mass/Vol] 198 mg/dL <200 [facility] Comment on above: <200 mg/dL Desirable 200-240 mg/dL Borderline >240 mg/dL High Risk Serum or plasma creatinine m easurement (mass/volume)Ordered By: Susan Yañez on 11-02-2024 Creatinine [Mass/Vol] 1.60 mg/dL High 0.55-1.02 [facility] Comment on above: The validity of the calculated GFR & GFRAA in patients over 70 years has not been determined. Clinical correlation is essential. Serum or plasma urea nitroge n measurement (mass/volume)Ordered By: Susan Yañez on 11-02-2024 Urea nitrogen [Mass/Vol] 21 mg/dL High 7-18 [facility] Sodium levelOrdered By: Susan Yañez on 11-02-2024 Sodium [Moles/Vol] 142 mmol/L 136-145 [facility] T4 Free Directon 11-02-2024 T4 FREE DIRECT 0.84 ng/dL Normal 0.76-1.46 [facility] Comment on above: Order Comment: Order Date: 11/02/24 Order Info: 0565-1 - PTHIN Performed By: #### L 503.6550, L506.0250, L503.6150, L503.6075, L509.1000, L506.1000, L506.0400, L500.4100, L501.2300, L501.9520, L503.0105, L100.0100, L500.4050 #### [facility] [address] [place], [address] TIBCOrdered By: Susan soto on 11-02-2024 Total Iron Binding Capacity 239 ug/dL Low 250-450 [facility] TSH QnOrdered By: Susan mathew on 11-02-2024 Thyroid Stimulating Hormone (TSH) 2.740 uIU/mL 0.358-3.74 0 [facility] Thyroid Stim Hormone (TSH)on 11-02-2024 TSH 2.740 uIU/mL Normal 0.358-3.74 0 [facility] Comment on above: Order Comment: Order Date: 11/02/24 Order Info: 0786-1 - CMP Order Info: [id number] - LIPID Order Info: 2777-1 - PHOS Order Info: 3016-3 - TSH Order Info: 2500-7 - TIBC Order Info: 1328-4 - FE Order Info: 4 - DORIS Order Info: 8 - FOLS Order Info: 3024-7 - T4F N Performed By: #### L 503.6550, L506.0250, L503.6150, L503.6075, L509.1000, L506.1000, L506.0400, L500.4100, L501.2300, L501.9520, L503.0105, L100.0100, L500.4050 #### [facility] [address] [place], [address] Total proteinOrdered By: Shayan Yañez on 11-02-2024 Protein [Mass/Vol] 6.8 g/dL 6.4-8.2 [facility] Triglycerides measurementOrd ered By: Susan Yañez on 11-02-2024 Triglyceride [Mass/Vol] 79 mg/dL <199 [facility] Comment on above: The drugs N-Acetylcy steine and Metamizole may falsely depress this assay.Serum Triglycerides Reference Interval Normal <150 mg/dL Borderline high 150 - 199 mg/dL High 200 - 499 mg/dL Very High > or = 500 mg/dL Very low density lipoprotein (VLDL) cholesterol measurementOrdered By: Susan Yañez on 11-02-2024 VLDL Cholesterol 16 mg/dL 5-40 [facility] Vitamin B12on 11-02-2024 Cobalamin (Vitamin B12) [Mass/Vol] 613 pg/mL Normal 211-911 [facility] Comment on above: Order Comment: Order Date: 11/02/24 Order Info: 2132-9 - B12 Order Info: [id number] - VITD25 Performed By: #### L 503.6550, L506.0250, L503.6150, L503.6075, L509.1000, L506.1000, L506.0400, L500.4100, L501.2300, L501.9520, L503.0105, L100.0100, L500.4050 #### [facility] [address] [place], [place], [address] Vitamin B12 measurementOrder ed By: Susan Yañez on 11-02-2024 Cobalamin (Vitamin B12) [Mass/Vol] 613 pg/mL 211-911 [facility] Vitamin D,25 Hydroxyon 11-02 Vitamin D 25-OH 31.9 ng/mL Normal [facility] Comment on above: Order Comment: Order Date: 11/02/24 Order Info: 2132-9 - B12 Order Info: [id number] - VITD25 Result Comment: Gissell min D 25(OH) Status Range Deficiency <20 ng/mL (50nmol/L) Insufficiency 20 - 30 ng/mL (50 - 75 nmol/L) Sufficiency 30 - 100 ng/mL (75 - 250 nmol/L) Toxicity >100 ng/mL (>250 nmol/L) Performed By: #### L 503.6550, L506.0250, L503.6150, L503.6075, L509.1000, L506.1000, L506.0400, L500.4100, L501.2300, L501.9520, L503.0105, L100.0100, L500.4050 #### [facility] [address] [place], [place], [id number] White blood cell (WBC) count Ordered By: Susan Yañez on 11-02-2024 WBC (Bld) [#/Vol] 4.1 10*3/uL Low 4.4-11.0 [facility] XR Hand - right PA and Later al and Obliqueon 05-18-2024 IMPRESSION: No acute abnormality Application Operations Engineer: JEMMA Transcribe Date/Time: May 18 2024 6:08A Dictated by : MICKI OH MD This examination was interpreted and the report reviewed and electronically signed by: MICKI OH MD on May 18 2024 6:10AM [facility] * * *Final Report* * * DATE OF EXAM: May 11 2024 11:19AM MDO 5346 - XR HAND 3V PA/LAT/OBL RT / PROCEDURE REASON: M79.641-Right hand pain * * * * Physician Interpretation * * * * PROCEDURE: Right hand INDICATION: Right hand pain . TECHNIQUE: XR HAND 3V PA/LAT/OBL RT COMPARISON: None FINDINGS: Diffuse osteopenia. No fracture or dislocation. No significant joint space narrowing, erosion or focal soft tissue swelling. Mild scattered osteoarthritic change. [facility] Provider, Rangel aranda [place] - 05/18/2024 * * *Final Report* * * DATE OF EXAM: May 11 2024 11:19AM O 5346 - XR HAND 3V PA/LAT/OBL RT / PROCEDURE REASON: M79.641-Right hand pain * * * * Physician Interpretation * * * * PROCEDURE: Right hand INDICATION: Right hand pain . TECHNIQUE: XR HAND 3V PA/LAT/OBL RT COMPARISON: None FINDINGS: Diffuse osteopenia. No fracture or dislocation. No significant joint space narrowing, erosion or focal soft tissue swelling. Mild scattered osteoarthritic change. IMPRESSION IMPRESSION: No acute abnormality Application Operations Engineer: PSCB Transcribe Date/Time: May 18 2024 6:08A Dictated by : MICKI OH MD This examination was interpreted and the report reviewed and electronically signed by: MICKI OH MD on May 18 2024 6:10AM EST [facility] XR Hand - right PA and Later al and ObliqueOrdered By: [facility] Provider on 05-18-2024 [facility] CNOVon 05-11-2024 CNOV Office Visit (ORMDNA ) -------- SHARON ERED ([id number]) 1945 [address]* Date Time Provider Department 05/11/24 11:15 AM FOLRENCE FINLEY During your visit today, we recorded the following information about you: Florence Finley DO 05/12/2024 8:51 AM Signed Follow Up Visit Chief Complaint Sharon Reed is a 78 year old female who presents today for follow up office visit. Patient presents with: Right Hand - Follow Up, Pain History of Present Illness PAIN EVALUATION 05/11/2024 1118 Pain Level: 10 Pain Location: Hand-Right Description: Sharp;Stabbing;Throbbing Duration Amount of Time: -- ongoing Frequency: Intermittent HPI: Sharon Reed is a 78 year old female for a follow up visit right hand pain. Patient states pain is mostly in the pinky/medial side of the hand, in anatomical position. Patient mentions that she had surgery on her hand many years ago but cannot recall what kind of surgery it was. She denies numbness and tingling. Pain history is noted as above. Is [...] of consciousness. Current Outpatient Medications Medication Sig [id number] -[id number] 1.5 mg iron- 8.73 mg CpID Take by mouth once daily. atorvastatin (LIPITOR) 20 mg tablet daily at bedtime. cyclobenzaprine (FLEXERIL) 5 mg tablet Take 5 mg by mouth three times daily as needed. Verapamil HCl 360 mg 24 hr capsule VERAPAMIL HCL ER 360 MG [id number] VITAMIN D-3 50 mcg (2,000 unit) cap Take 1 capsule by mouth once daily. brimonidine (ALPHAGAN) 0.2 % ophthalmic solution Use 1 Drop in the left eye every 12 hours. (Patient not taking: Reported on 03/16/2023) latanoprost (XALATAN) 0.005 % ophthalmic solution Use 1 Drop in the left eye once daily. Instill 1 drop in each eye at bedtime. pantoprazole DR (PROTONIX) 40 mg tablet TAKE 1 TABLET BY MOUTH 30-45 MINUTES BEFORE BREAKFAST meloxicam (MOBIC) 7.5 mg tablet Take 1 tablet by mouth once daily. Take this directly following a meal (Patient not taking: Reported on 03/16/2023) RESTASIS 0.05 % ophthalmic emulsion INSTILL 1 DROP INTO EACH EYE TWICE DAILY DIRECTED No current facility-administered medications for this visit. [...] of breath at rest Rheumatologic: Joint deformities: right hand pain Right Hand Exam Tenderness Right hand tenderness location: fifth dip / pip joint. Range of Motion The patient has normal right wrist ROM. Wrist Extension: normal Flexion: normal Pronation: normal Supination: normal Muscle Strength The patient has normal right wrist strength. Tests Phalen?s Sign: negative Tinel's sign (median nerve): negative Mian's test: negative Other Erythema: absent Sensation: normal Pulse: present Comments: B/l med/uln/rad/ax nerves intact Stiffness/oa of right fifth ray dip/pip Left Hand Exam Left hand exam is normal. Tenderness The patient is experiencing no tenderness. Range of Motion The patient has normal left wrist ROM. Wrist Extension: normal Flexion: normal Pronation: normal Supination: normal Muscle Strength The patient has normal left wrist strength. Tests Phalen?s Sign: negative Tinel's sign (median nerve): negative Mian's test: negative Other Erythema: absent Sensation: normal Pulse: present Assessment and Plan Radiographs: I have independently reviewed films and my findings are the same. and I have reviewed the images with the patient and family. Last XR Hand/Finger - Impression Only XR HAND GENERAL 3V PA/LAT/OBL RIGHT Exam End: 05/11/2024 11:34 AM (In process) Oa right hand Impression (more content not included)... Normal [facility] XR HAND 3V PA/LAT/OBL RTon 0 05-11-2024 XR HAND 3V PA/LAT/OBL RT * * *Final Report* * * DATE OF EXAM: May 11 2024 11:19AM MARZENA [id number] - XR HAND 3V PA/LAT/OBL RT / PROCEDURE REASON: M79.641-Right hand pain * * * * Physician Interpretation * * * * PROCEDURE: Right hand INDICATION: Right hand pain . TECHNIQUE: XR HAND 3V PA/LAT/OBL RT COMPARISON: None FINDINGS: Diffuse osteopenia. No fracture or dislocation. No significant joint space narrowing, erosion or focal soft tissue swelling. Mild scattered osteoarthritic change. IMPRESSION: No acute abnormality Application Operations Engineer: [facility] Transcribe Date/Time: May 18 2024 6:08A Dictated by : MIKCI OH MD This examination was interpreted and the report reviewed and electronically signed by: MICKI OH MD on May 18 2024 6:10AM EST [id number] Normal [facility] XR Hand - right PA and Later al and Obliqueon 05-11-2024 Radiology Study observation (narrative) [facility] No Panel InformationOrdered By: Susan Yañez on 02-23-2024 Thyroglobulin Antibody 6.6 IU/mL 0.0-0.9 [facility] Comment on above: Thyroglobulin Antibo dy measured by Nomi EveryRackMethodologyIt should be noted that the presence of thyroglobulinantibodies may not be pathogenic nor diagnostic, especiallyat very low levels. The assay aluminum siding mechanic has found thatfour percent of individuals without evidence of thyroiddisease or autoimmunity will have positive TgAb levels upto 4 IU/mL.Performed at: [facility] [id number] Director: Sanjeev Farley PhD, Phone: [phone] Serum or plasma thyroperoxid ase antibody assay (units/volume)Ordered By: Susan Yañez on 02-23-2024 TPO Ab Qn 82 [IU]/mL 0-34 [facility] Absolute lymphocyte countOrd ered By: Susan Halllloyd on 02-14-2024 Lymphocytes Auto (Unsp spec) [#/Vol] 2.08 10*3/uL 0.83-4.51 [facility] Automated lymphocyte count a s percentage of total leukocytesOrdered By: Susan Pari on 02-14-2024 Lymphocytes/100 WBC Auto (Unsp spec) 43.3 % 19-41 [facility] Basophil percentageOrdered B y: Susan Yañez on 02-14-2024 Basophil percentage 5-10 SEEN /hpf 0-5 [facility] Basophil percentage 3.1 mg/dL 2.5-4.9 [facility] Basophils/100 WBC (Bld) 0.6 % 0-1 [facility] Bilirubin [Mass/Vol] 0.30 mg/dL 0.20-1.00 [facility] Comment on above: For patients on eltr ombopag therapy, use of Dimension [place] TBIL is not recommended. Chloride [Moles/Vol] 110 mmol/L 98-107 [facility] Cholesterol [Mass/Vol] 244 mg/dL <200 [facility] Comment on above: <200 mg/dL Desirable 200-240 mg/dL Borderline >240 mg/dL High Risk Eosinophils/100 WBC (Bld) 1.3 % 0-5 [facility] Glucose [Mass/Vol] 70 mg/dL 74-106 [facility] Hemoglobin (Bld) [Mass/Vol] 12.4 g/dL 12.0-15.0 [facility] Monocytes/100 WBC (Bld) 12.1 % 0-10 [facility] Neutrophils (Bld) [#/Vol] 2.1 10*3/uL 2.0-7.7 [facility] Neutrophils/100 WBC (Bld) 42.7 % 47-70 [facility] Potassium [Moles/Vol] 4.3 mmol/L 3.5-5.1 [facility] Protein [Mass/Vol] 7.1 g/dL 6.4-8.2 [facility] Sodium [Moles/Vol] 141 mmol/L 136-145 [facility] Triglyceride [Mass/Vol] 108 mg/dL <199 [facility] Comment on above: The drugs N-Acetylcy steine and Metamizole may falsely depress this assay.Serum Triglycerides Reference Interval Normal <150 mg/dL Borderline high 150 - 199 mg/dL High 200 - 499 mg/dL Very High > or = 500 mg/dL WBC (Bld) [#/Vol] 4.8 10*3/uL 4.4-11.0 [facility] Bilirubin Test strip Ql (U)O rdered By: Susan Yañez on 02-14-2024 Bilirubin Ql (U) 1 mg/dL Negative [facility] Comment on above: COLOR OF URINE MAY A FFECT DIPSTICK RESULTS. Determination of erythrocyte mean corpuscular volume (MCV)Ordered By: Susan Yañez on 02-14-2024 MCV (RBC) [Entitic vol] 93.5 fL 81-99 [facility] Erythrocyte distribution wid th ratioOrdered By: Susan Yañez on 02-14-2024 Erythrocyte distribution width (RBC) [Ratio] 14.6 % 11.6-14.6 [facility] Erythrocyte distribution wid th standard deviationOrdered By: Susan Yañez on 02-14-2024 Erythrocyte distribution width (RBC) [Entitic vol] 50.4 fL 35.1-43.9 [facility] Hematocrit Auto (Bld) [Volum e fraction]Ordered By: Susan Yañez on 02-14-2024 Hematocrit (Bld) [Volume fraction] 38.8 % 37-47 [facility] Immature granulocytes/100 WB C Auto (Bld)Ordered By: Susan Yañez on 02-14-2024 Immature granulocytes/100 WBC (Bld) 0.000 % 0.0-0.9 [facility] Comment on above: IG% - Immature Granu locytes (promyelocytes, myelocytes and metamyelocytes) > 1% indicates that a LEFT SHIFT is Present. Iron measurement (mass/mass) Ordered By: Susan Yañez on 02-14-2024 Iron (Unsp spec) [Mass/Mass] 70 ug/dL 50-170 [facility] Ketones Test strip Ql (U)Ord ered By: Susan Yañez on 02-14-2024 Ketones Ql (U) 5 mg/dl Negative [facility] Laboratory - Chemistry and C hemistry - challengeOrdered By: Susan Yañez on 02-14-2024 Albumin/Globulin [Mass ratio] 0.8 {ratio} 0.9-2.4 [facility] ALP [Catalytic activity/Vol] 107 U/L 45-117 [facility] ALT [Catalytic activity/Vol] 23 U/L 13-56 [facility] Cholesterol in HDL [Mass/Vol] 73 mg/dL >40 [facility] Comment on above: The drugs N-Acetylcy steine and Metamizole may falsely depress this assay. Reference Range HDL <40 mg/dL Low HDL Cholesterol HDL >or= 60 mg/dL High HDL Cholesterol Cholesterol in LDL [Mass/Vol] 149 mg/dL 0-130 [facility] CO2 [Moles/Vol] 25.0 mmol/L 21.0-32.0 [facility] Cobalamin (Vitamin B12) [Mass/Vol] 595 pg/mL 211-911 [facility] Ferritin [Mass/Vol] 68 ng/mL 8-252 [facility] Globulin (S) [Mass/Vol] 3.9 g/dL 2.2-4.2 [facility] Urea nitrogen/Creatinine [Mass ratio] 11.2 mg/mg 10-20 [facility] Laboratory - Hematology and Cell countsOrdered By: Susan Yañez on 02-14-2024 MCH (RBC) [Entitic mass] 29.9 pg 27.0-32.0 [facility] MCHC (RBC) [Mass/Vol] 32.0 g/dL 32-36 [facility] Nucleated RBC/100 WBC (Bld) [Ratio] 0 % 0-5 [facility] Platelet mean volume (Bld) [Entitic vol] 9.6 fL 6.2-12.0 [facility] Platelets (Bld) [#/Vol] 280 10*3/uL 150-450 [facility] Mucus LM Ql (Urine sed)Order ed By: Susan Yañez on 02-14-2024 Mucus Ql (Urine sed) 0 SEEN /hpf [facility] Nitrite Test strip Ql (U)Ord ered By: Susan Yañez on 02-14-2024 Nitrite Ql (U) Negative Negative [facility] No Panel InformationOrdered By: Susan Yañez on 02-14-2024 Urine RBC 0 SEEN /hpf 0-5 [facility] Estimated GFR (MDRD) Amer 35 mL/min >60 [facility] Comment on above: GFR Calc Estimated GFR (MDRD) Non-Af Amer 29 mL/min >60 [facility] Comment on above: Non- GFR Calc Folate 15.00 ng/mL 3.1-55.4 [facility] Comment on above: Slight Hemolysis, Re sult may be falsely increased. Parathyroid Hormone (Intact) 106.2 pg/mL 18.4-80.1 [facility] Total Iron Binding Capacity 317 ug/dL 250-450 [facility] VLDL Cholesterol 22 mg/dL 5-40 [facility] Protein Test strip Ql (U)Ord ered By: Susan Yañez on 02-14-2024 Protein Ql (U) 30 mg/dl Negative [facility] RBC Auto (Bld) [#/Vol]Ordere d By: Susan Yañez on 02-14-2024 RBC (Bld) [#/Vol] 4.15 10*6/uL 4.2-5.4 [facility] Serum or plasma calcium yue urement (mass/volume)Ordered By: Susan Yañez on 02-14-2024 Calcium [Mass/Vol] 9.2 mg/dL 8.5-10.1 [facility] Serum or plasma creatinine m easurement (mass/volume)Ordered By: Susan Yañez on 02-14-2024 Creatinine [Mass/Vol] 1.79 mg/dL 0.55-1.02 [facility] Comment on above: The validity of the calculated GFR & GFRAA in patients over 70 years has not been determined. Clinical correlation is essential. Serum or plasma thyroid stim ulating hormone (TSH) measurement (units/volume)Ordered By: Susan Yañez on 02-14-2024 TSH Qn 4.01 uIU/mL 0.358-3.74 [facility] Serum or plasma urea nitroge n measurement (mass/volume)Ordered By: Susan Yañez on 02-14-2024 Urea nitrogen [Mass/Vol] 20 mg/dL 7-18 [facility] Squamous epithelial cells de tection in urine sediment by light microscopyOrdered By: Susan Yañez on 02-14-2024 Epithelial cells.squamous LM Ql (Urine sed) 10-25 SEEN /hpf 5-10 [facility] Thin prep Papanicolaou smear with manual screeningOrdered By: Susan Yañez on 02-14-2024 Protein (U) [Mass/Vol] 56.4 mg/dL 0.0-11.8 [facility] Thin prep Papanicolaou smear with manual screening 3.2 g/dL 3.2-5.0 [facility] Thin prep Papanicolaou smear with manual screening 23 U/L 15-37 [facility] Thin prep Papanicolaou smear with manual screening 6 5-15 [facility] Urine blood detectionOrdered By: Susan Yañez on 02-14-2024 RBC Ql (U) 10 /ul Negative [facility] Urine clarityOrdered By: Shayan Yañez on 02-14-2024 Clarity (U) Sl. Cloudy Clear [facility] Urine color determinationOrd ered By: Susan Yañez on 02-14-2024 Color (U) Yellow Yellow [facility] Urine creatinine measurement (mass/volume)Ordered By: Susan Yañez on 02-14-2024 Creatinine (U) [Mass/Vol] 366.00 mg/dL NO RANGE EST. [facility] Urine glucose detectionOrder ed By: Susan Yañez on 02-14-2024 Glucose Ql (U) Normal mg/dl Normal [facility] Urine leukocyte esterase det ection by dipstickOrdered By: Susan Yañez on 02-14-2024 Leukocyte esterase Test strip Ql (U) 500 /ul Negative [facility] Urine pHOrdered By: Susan desia on 02-14-2024 pH (U) 6.0 [pH] 5.0 - 8.0 [facility] Urine protein/creatinine mas s ratioOrdered By: Susan Yañez on 02-14-2024 Protein/Creatinine (U) [Mass ratio] 154 mg/g CRE 0-200 [facility] Urine sediment bacteria coun t by microscopy (number/high power field)Ordered By: Susan Yañez on 02-14-2024 Bacteria LM.HPF (Urine sed) [#/Area] 1 /[HPF] None Seen [facility] Urine specific gravity measu rementOrdered By: Susan Yañez on 02-14-2024 Specific gravity (U) [Rel density] 1.015 1.002-1.03 0 [facility] Urine urobilinogen measureme ntOrdered By: Susan Yañez on 02-14-2024 Urobilinogen Ql (U) 1 mg/dl Normal [facility] Absolute lymphocyte countOrd ered By: Susan Yañez on 08-04-2023 Lymphocytes Auto (Unsp spec) [#/Vol] 2.04 10*3/uL 0.83-4.51 [facility] Basophil percentageOrdered B y: Susan Makiquincy on 08-04-2023 Basophil percentage 5-10 SEEN /hpf 0-5 [facility] Basophil percentage 3.4 mg/dL 2.5-4.9 [facility] Basophils/100 WBC (Bld) 0.7 % 0-1 [facility] Bilirubin [Mass/Vol] 0.40 mg/dL 0.20-1.00 [facility] Comment on above: For patients on eltr ombopag therapy, use of Dimension [place] TBIL is not recommended. Chloride [Moles/Vol] 110 mmol/L 98-107 [facility] Cholesterol [Mass/Vol] 188 mg/dL <200 [facility] Comment on above: <200 mg/dL Desirable 200-240 mg/dL Borderline >240 mg/dL High Risk Eosinophils/100 WBC (Bld) 1.1 % 0-5 [facility] Glucose [Mass/Vol] 83 mg/dL 74-106 [facility] Neutrophils (Bld) [#/Vol] 1.9 10*3/uL 2.0-7.7 [facility] Neutrophils/100 WBC (Bld) 43.1 % 47-70 [facility] Potassium [Moles/Vol] 4.1 mmol/L 3.5-5.1 [facility] Protein [Mass/Vol] 7.1 g/dL 6.4-8.2 [facility] Sodium [Moles/Vol] 141 mmol/L 136-145 [facility] Triglyceride [Mass/Vol] 72 mg/dL <199 [facility] Comment on above: The drugs N-Acetylcy steine and Metamizole may falsely depress this assay.Serum Triglycerides Reference Interval Normal <150 mg/dL Borderline high 150 - 199 mg/dL High 200 - 499 mg/dL Very High > or = 500 mg/dL WBC (Bld) [#/Vol] 4.5 10*3/uL 4.4-11.0 [facility] Bilirubin Test strip Ql (U)O rdered By: Susan Yañez on 08-04-2023 Bilirubin Ql (U) 1 mg/dL Negative [facility] Comment on above: COLOR OF URINE MAY A FFECT DIPSTICK RESULTS. Blood erythrocytes count (nu mber/volume)Ordered By: Susan Yañez on 08-04-2023 RBC (Bld) [#/Vol] 4.01 10*6/uL 4.2-5.4 [facility] Blood hemoglobin measurement (mass/volume)Ordered By: Susan Yañez on 08-04-2023 Hemoglobin (Bld) [Mass/Vol] 12.1 g/dL 12.0-15.0 [facility] Blood lymphocytes/100 leukoc ytesOrdered By: Susan Yañez on 08-04-2023 Lymphocytes/100 WBC (Bld) 45.7 % 19-41 [facility] Blood monocytes/100 leukocyt esOrdered By: Susan Yañez on 08-04-2023 Monocytes/100 WBC (Bld) 9.2 % 0-10 [facility] Blood platelet mean volumeOr dered By: Susan Yañez on 08-04-2023 Platelet mean volume (Bld) [Entitic vol] 9.9 fL 6.2-12.0 [facility] Determination of erythrocyte mean corpuscular volume (MCV)Ordered By: Susan Yañez on 08-04-2023 MCV (RBC) [Entitic vol] 94.3 fL 81-99 [facility] Hematocrit Auto (Bld) [Volum e fraction]Ordered By: Susan Yañez on 08-04-2023 Hematocrit (Bld) [Volume fraction] 37.8 % 37-47 [facility] Hyaline casts LM.LPF (Urine sed) [#/Area]Ordered By: Susan Yañez on 08-04-2023 Hyaline casts (Urine sed) [#/Area] 0 /[LPF] 0-5 [facility] Ketones Test strip Ql (U)Ord ered By: Susan Yañez on 08-04-2023 Ketones Ql (U) Negative Negative [facility] Laboratory - Chemistry and C hemistry - challengeOrdered By: Susan Yañez on 08-04-2023 ALP [Catalytic activity/Vol] 124 U/L 45-117 [facility] ALT [Catalytic activity/Vol] 33 U/L 13-56 [facility] CO2 [Moles/Vol] 25.0 mmol/L 21.0-32.0 [facility] Free T4 [Mass/Vol] 0.81 ng/dL 0.76-1.46 [facility] Globulin (S) [Mass/Vol] 3.9 g/dL 2.2-4.2 [facility] Urea nitrogen/Creatinine [Mass ratio] 14.2 mg/mg 10-20 [facility] Laboratory - Hematology and Cell countsOrdered By: Susan Yañez on 08-04-2023 Erythrocyte distribution width (RBC) [Entitic vol] 47.8 fL 35.1-43.9 [facility] Erythrocyte distribution width (RBC) [Ratio] 13.8 % 11.6-14.6 [facility] Immature granulocytes/100 WBC (Bld) 0.200 % 0.0-0.9 [facility] Comment on above: IG% - Immature Granu locytes (promyelocytes, myelocytes and metamyelocytes) > 1% indicates that a LEFT SHIFT is Present. MCH (RBC) [Entitic mass] 30.2 pg 27.0-32.0 [facility] Nucleated RBC/100 WBC (Bld) [Ratio] 0 % 0-5 [facility] MCHC Auto (RBC) [Mass/Vol]Or dered By: Susan Yañez on 08-04-2023 MCHC (RBC) [Mass/Vol] 32.0 g/dL 32-36 [facility] Mucus LM Ql (Urine sed)Order ed By: Susan Yañez on 08-04-2023 Mucus Ql (Urine sed) 0 SEEN /hpf [facility] Nitrite Test strip Ql (U)Ord ered By: Susan Yañez on 08-04-2023 Nitrite Ql (U) Negative Negative [facility] No Panel InformationOrdered By: Susan Yañez on 08-04-2023 Estimated GFR (MDRD) Amer 39 mL/min >60 [facility] Comment on above: GFR Calc Estimated GFR (MDRD) Non-Af Amer 33 mL/min >60 [facility] Comment on above: Non- GFR Calc Parathyroid Hormone (Intact) 110.3 pg/mL 18.4-80.1 [facility] Thyroid Stimulating Hormone (TSH) 3.10 uIU/mL 0.358-3.74 [facility] Vitamin D 25-Hydroxy 33.7 ng/mL [facility] Comment on above: Vitamin D 25(OH) Sta tus Range Deficiency <20 ng/mL (50nmol/L) Insufficiency 20 - 30 ng/mL (50 - 75 nmol/L) Sufficiency 30 - 100 ng/mL (75 - 250 nmol/L) Toxicity >100 ng/mL (>250 nmol/L) Platelets bldOrdered By: Shayan Yañez on 08-04-2023 Platelets (Bld) [#/Vol] 232 10*3/uL 150-450 [facility] Protein Test strip Ql (U)Ord ered By: Susan Yañez on 08-04-2023 Protein Ql (U) 30 mg/dl Negative [facility] Serum or plasma albumin yue urement (mass/volume)Ordered By: Susan Yañez on 08-04-2023 Albumin [Mass/Vol] 3.2 g/dL 3.2-5.0 [facility] Serum or plasma albumin/glob ulin mass ratioOrdered By: Susan Yañez on 08-04-2023 Albumin/Globulin [Mass ratio] 0.8 {ratio} 0.9-2.4 [facility] Serum or plasma calcium yue urement (mass/volume)Ordered By: Susan Yañez on 08-04-2023 Calcium [Mass/Vol] 8.6 mg/dL 8.5-10.1 [facility] Serum or plasma cholesterol in HDL measurement (mass/volume)Ordered By: Susan Yañez on 08-04-2023 Cholesterol in HDL [Mass/Vol] 76 mg/dL >40 [facility] Comment on above: The drugs N-Acetylcy steine and Metamizole may falsely depress this assay. Reference Range HDL <40 mg/dL Low HDL Cholesterol HDL >or= 60 mg/dL High HDL Cholesterol Serum or plasma cholesterol in VLDL measurement (mass/volume)Ordered By: Susan Yañez on 08-04-2023 Cholesterol in VLDL [Mass/Vol] 14 mg/dL 5-40 [facility] Serum or plasma creatinine m easurement (mass/volume)Ordered By: Susan Yañez on 08-04-2023 Creatinine [Mass/Vol] 1.62 mg/dL 0.55-1.02 [facility] Comment on above: The validity of the calculated GFR & GFRAA in patients over 70 years has not been determined. Clinical correlation is essential. Serum or plasma low density lipoprotein (LDL) cholesterol measurement (mass/volume)Ordered By: Susan Yañez on 08-04-2023 Cholesterol in LDL [Mass/Vol] 98 mg/dL 0-130 [facility] Serum or plasma urea nitroge n measurement (mass/volume)Ordered By: Susan Yañez on 08-04-2023 Urea nitrogen [Mass/Vol] 23 mg/dL 7-18 [facility] Squamous epithelial cells de tection in urine sediment by light microscopyOrdered By: Susan Yañez on 08-04-2023 Epithelial cells.squamous LM Ql (Urine sed) 5-10 SEEN /hpf 5-10 [facility] Thin prep Papanicolaou smear with manual screeningOrdered By: Susan Yañez on 08-04-2023 Thin prep Papanicolaou smear with manual screening 23 U/L 15-37 [facility] Thin prep Papanicolaou smear with manual screening 6 5-15 [facility] Urine blood detectionOrdered By: Susan Yañez on 08-04-2023 RBC Ql (U) Negative Negative [facility] RBC Ql (U) 0 SEEN /hpf 0-5 [facility] Urine clarityOrdered By: Shayan Yañez on 08-04-2023 Clarity (U) Sl. Cloudy Clear [facility] Urine color determinationOrd ered By: Susan Yañez on 08-04-2023 Color (U) Yellow Yellow [facility] Urine creatinine measurement (mass/volume)Ordered By: Susan Yañez on 08-04-2023 Creatinine (U) [Mass/Vol] 270.00 mg/dL NO RANGE EST. [facility] Urine glucose detectionOrder ed By: Susan Yañez on 08-04-2023 Glucose Ql (U) Normal mg/dl Normal [facility] Urine leukocyte esterase det ection by dipstickOrdered By: Susan Yañez on 08-04-2023 Leukocyte esterase Test strip Ql (U) 500 /ul Negative [facility] Urine pHOrdered By: Susan desai on 08-04-2023 pH (U) 5.0 [pH] 5.0 - 8.0 [facility] Urine protein measurement (m ass/volume)Ordered By: Susan Yañez on 08-04-2023 Protein (U) [Mass/Vol] 51.7 mg/dL 0.0-11.8 [facility] Urine protein/creatinine mas s ratioOrdered By: Susan Yañez on 08-04-2023 Protein/Creatinine (U) [Mass ratio] 191 mg/g CRE 0-200 [facility] Urine sediment bacteria coun t by microscopy (number/high power field)Ordered By: Susan Yañez on 08-04-2023 Bacteria LM.HPF (Urine sed) [#/Area] 1 /[HPF] None Seen [facility] Urine specific gravity measu rementOrdered By: Susan Yañez on 08-04-2023 Specific gravity (U) [Rel density] 1.020 1.002-1.03 0 [facility] Urobilinogen Auto test strip Ql (U)Ordered By: Susan Yañez on 08-04-2023 Urobilinogen Ql (U) 1 mg/dl Normal [facility] XR Wrist - left 4 Viewson IMPRESSION: 1. Mild wrist osteoarthritis 2. Findings suggesting ulnocarpal abutment Application Operations Engineer: [facility] Transcribe Date/Time: Mar 16 2023 11:37A Dictated by : KRISTI PRIETO MD This examination was interpreted and the report reviewed and electronically signed by: KRISTI PRIETO MD on Mar 16 2023 11:39AM [facility] DIVISION OF RADIOLOGY * * *Final Report* * * DATE OF EXAM: Mar 16 2023 8:55AM STX [id number] - XR WRIST 4V PA/LAT/OBL/SCAPH LT / PROCEDURE REASON: Left wrist pain * * * * Physician Interpretation * * * * Left wrist radiographs HISTORY: Wrist pain TECHNIQUE: 4 views of the left wrist COMPARISON: None available FINDINGS: Mild diffuse osteopenia. Mild osteophytes at the scaphotrapezial and first carpometacarpal joint. No fracture, erosions or avascular necrosis. Cystic change at the scaphoid and lunate. Mild positive ulnar variance. Mild osteophytes at the distal radioulnar joint. Punctate periarticular calcifications lateral to the wrist. DIVISION OF RADIOLOGY Provider, Rangel Randolph - 03/16/2023 * * *Final Report* * * DATE OF EXAM: Mar 16 2023 8:55AM STX [id number] - XR WRIST 4V PA/LAT/OBL/SCAPH LT / PROCEDURE REASON: Left wrist pain * * * * Physician Interpretation * * * * Left wrist radiographs HISTORY: Wrist pain TECHNIQUE: 4 views of the left wrist COMPARISON: None available FINDINGS: Mild diffuse osteopenia. Mild osteophytes at the scaphotrapezial and first carpometacarpal joint. No fracture, erosions or avascular necrosis. Cystic change at the scaphoid and lunate. Mild positive ulnar variance. Mild osteophytes at the distal radioulnar joint. Punctate periarticular calcifications lateral to the wrist. IMPRESSION IMPRESSION: 1. Mild wrist osteoarthritis 2. Findings suggesting ulnocarpal abutment Application Operations Engineer: ROBERTS [place]APEL Transcribe Date/Time: Mar 16 2023 11:37A Dictated by : KRISTI PRIETO MD This examination was interpreted and the report reviewed and electronically signed by: KRISTI PRIETO MD on Mar 16 2023 11:39AM EST [facility] Radiology Study observation (narrative) [facility] Wrist - left 4 ViewsOrder ed By: [facility]cf Provider on 03-16-2023 [facility] Absolute lymphocyte countOrd ered By: Dr. Yañez on 11-18-2022 Lymphocytes Auto (Unsp spec) [#/Vol] 2.34 10*3/uL 0.83-4.51 [facility] Basophil percentageOrdered B y: Dr. Yañez on 11-18-2022 Basophil percentage 3.4 mg/dL 2.5-4.[address] [facility] Basophils/100 WBC (Bld) 0.7 % 0-1 [facility] Bilirubin [Mass/Vol] 0.30 mg/dL 0.20-1.00 [facility] Comment on above: For patients on eltr ombopag therapy, use of Dimension [place] TBIL is not recommended. Chloride [Moles/Vol] 112 mmol/L 98-107 [facility] Cholesterol [Mass/Vol] 220 mg/dL <200 [facility] Comment on above: <200 mg/dL Desirable 200-240 mg/dL Borderline >240 mg/dL High Risk Eosinophils/100 WBC (Bld) 1.4 % 0-5 [facility] Glucose [Mass/Vol] 87 mg/dL 74-106 [facility] Neutrophils (Bld) [#/Vol] 2.8 10*3/uL 2.0-7.7 [facility] Neutrophils/100 WBC (Bld) 47.9 % 47-70 [facility] Potassium [Moles/Vol] 4.4 mmol/L 3.5-5.1 [facility] Protein [Mass/Vol] 6.3 g/dL 6.4-8.2 [facility] Sodium [Moles/Vol] 144 mmol/L 136-145 [facility] Triglyceride [Mass/Vol] 83 mg/dL <199 [facility] Comment on above: The drugs N-Acetylcy steine and Metamizole may falsely depress this assay.Serum Triglycerides Reference Interval Normal <150 mg/dL Borderline high 150 - 199 mg/dL High 200 - 499 mg/dL Very High > or = 500 mg/dL WBC (Bld) [#/Vol] 5.9 10*3/uL 4.4-11.0 [facility] Blood erythrocytes count (nu mber/volume)Ordered By: Dr. Yañez on 11-18-2022 RBC (Bld) [#/Vol] 3.94 10*6/uL 4.2-5.4 [facility] Blood hemoglobin measurement (mass/volume)Ordered By: Dr. Yañez on 11-18-2022 Hemoglobin (Bld) [Mass/Vol] 11.9 g/dL 12.0-15.0 [facility] Blood lymphocytes/100 leukoc ytesOrdered By: Dr. Yañez on 11-18-2022 Lymphocytes/100 WBC (Bld) 39.8 % 19-41 [facility] Blood monocytes/100 leukocyt esOrdered By: Dr. Yañez on 11-18-2022 Monocytes/100 WBC (Bld) 9.9 % 0-10 [facility] Blood platelet mean volumeOr dered By: Dr. Yañez on 11-18-2022 Platelet mean volume (Bld) [Entitic vol] 10.2 fL 6.2-12.0 [facility] Determination of erythrocyte mean corpuscular volume (MCV)Ordered By: Dr. Yañez on 11-18-2022 MCV (RBC) [Entitic vol] 97.2 fL 81-99 [facility] Hematocrit Auto (Bld) [Volum e fraction]Ordered By: Dr. Yañez on 11-18-2022 Hematocrit (Bld) [Volume fraction] 38.3 % 37-47 [facility] Iron measurement (mass/mass) Ordered By: Dr. Yañez on 11-18-2022 Iron (Unsp spec) [Mass/Mass] 51 ug/dL 50-170 [facility] Laboratory - Chemistry and C hemistry - challengeOrdered By: Dr. Yañez on 11-18-2022 ALP [Catalytic activity/Vol] 106 U/L 45-117 [facility] ALT [Catalytic activity/Vol] 27 U/L 13-56 [facility] CO2 [Moles/Vol] 26.0 mmol/L 21.0-32.0 [facility] Cobalamin (Vitamin B12) [Mass/Vol] 421 pg/mL 211-911 [facility] Free T4 [Mass/Vol] 0.82 ng/dL 0.76-1.46 [facility] Globulin (S) [Mass/Vol] 3.3 g/dL 2.2-4.2 [facility] Urea nitrogen/Creatinine [Mass ratio] 17.4 mg/mg 10-20 [facility] Laboratory - Hematology and Cell countsOrdered By: Dr. Yañez on 11-18-2022 Erythrocyte distribution width (RBC) [Entitic vol] 49.5 fL 35.1-43.9 [facility] Erythrocyte distribution width (RBC) [Ratio] 13.9 % 11.6-14.6 [facility] Immature granulocytes/100 WBC (Bld) 0.300 % 0.0-0.9 [facility] Comment on above: IG% - Immature Granu locytes (promyelocytes, myelocytes and metamyelocytes) > 1% indicates that a LEFT SHIFT is Present. MCH (RBC) [Entitic mass] 30.2 pg 27.0-32.0 [facility] Nucleated RBC/100 WBC (Bld) [Ratio] 0 % 0-5 [facility] MCHC Auto (RBC) [Mass/Vol]Or dered By: Dr. Yañez on 11-18-2022 MCHC (RBC) [Mass/Vol] 31.1 g/dL 32-36 [facility] No Panel InformationOrdered By: Dr. Yañez on 11-18-2022 Estimated GFR (MDRD) Amer 41 mL/min >60 [facility] Comment on above: GFR Calc Estimated GFR (MDRD) Non-Af Amer 34 mL/min >60 [facility] Comment on above: Non- GFR Calc Parathyroid Hormone (Intact) 95.2 pg/mL 18.4-80.1 [facility] Thyroid Stimulating Hormone (TSH) 2.06 uIU/mL 0.358-3.74 [facility] Total Iron Binding Capacity 265 ug/dL 250-450 [facility] Vitamin D 25-Hydroxy 38.6 ng/mL [facility] Comment on above: Vitamin D 25(OH) Sta tus Range Deficiency <20 ng/mL (50nmol/L) Insufficiency 20 - 30 ng/mL (50 - 75 nmol/L) Sufficiency 30 - 100 ng/mL (75 - 250 nmol/L) Toxicity >100 ng/mL (>250 nmol/L) Platelets bldOrdered By: Dr. Yañez on 11-18-2022 Platelets (Bld) [#/Vol] 248 10*3/uL 150-450 [facility] Serum or plasma albumin yue urement (mass/volume)Ordered By: Dr. Yañez on 11-18-2022 Albumin [Mass/Vol] 3.0 g/dL 3.2-5.0 [facility] Serum or plasma albumin/glob ulin mass ratioOrdered By: Dr. Yañez on 01-05-2023 Albumin/Globulin [Mass ratio] 0.9 {ratio} 0.9-2.4 [facility] Serum or plasma calcium yue urement (mass/volume)Ordered By: Dr. Yañez on 11-18-2022 Calcium [Mass/Vol] 8.8 mg/dL 8.5-10.1 [facility] Serum or plasma cholesterol in HDL measurement (mass/volume)Ordered By: Dr. Yañez on 11-18-2022 Cholesterol in HDL [Mass/Vol] 79 mg/dL >40 [facility] Comment on above: The drugs N-Acetylcy steine and Metamizole may falsely depress this assay. Reference Range HDL <40 mg/dL Low HDL Cholesterol HDL >or= 60 mg/dL High HDL Cholesterol Serum or plasma cholesterol in VLDL measurement (mass/volume)Ordered By: Dr. Yañez on 11-18-2022 Cholesterol in VLDL [Mass/Vol] 17 mg/dL 5-40 [facility] Serum or plasma creatinine m easurement (mass/volume)Ordered By: Dr. Yañez on 11-18-2022 Creatinine [Mass/Vol] 1.55 mg/dL 0.55-1.02 [facility] Comment on above: The validity of the calculated GFR & GFRAA in patients over 70 years has not been determined. Clinical correlation is essential. Serum or plasma ferritin johnnie surement (mass/volume)Ordered By: Dr. Yañez on 11-18-2022 Ferritin [Mass/Vol] 76 ng/mL 8-252 [facility] Serum or plasma iron saturat ion measurement (mass fraction)Ordered By: Dr. Yañez on 11-18-2022 Iron saturation [Mass fraction] 19.2 % 15.0-55.0 [facility] Serum or plasma low density lipoprotein (LDL) cholesterol measurement (mass/volume)Ordered By: Dr. Yañez on 11-18-2022 Cholesterol in LDL [Mass/Vol] 124 mg/dL 0-130 [facility] Serum or plasma urea nitroge n measurement (mass/volume)Ordered By: Dr. Yañez on 11-18-2022 Urea nitrogen [Mass/Vol] 27 mg/dL 7-18 [facility] Thin prep Papanicolaou smear with manual screeningOrdered By: Dr. Yañez on 11-18-2022 Thin prep Papanicolaou smear with manual screening 21 U/L 15-37 [facility] Thin prep Papanicolaou smear with manual screening 6 5-15 [facility] Laboratory - Microbiology an d Antimicrobial susceptibilityOrdered By: Dr. Yañez on 08-17-2022 SARS-CoV-2 (COVID-19) RNA CARLOS+probe Ql (Unsp spec) Detected Not Detect [facility] Comment on above: Normal Reference Ran ge: Not DetectedMethod:(RT-PCR) real-time reverse transcriptase PCRLuminex REED Instrument*The Food and Drug Administration (FDA) has issued an Emergency Use Authorization (EAU) for the [facility] SARS-CoV-2 Assay for the rapid detection of the virus that causes COVID-19. This test has been validated, but the FDAs independent review of this validation is pending.*Negative results do not preclude infection and should not be used as the sole basis for treatment or patient management. Optimum specimen types and timing for peak viral levels during infections caused by SARS-CoV-2 have not been determined. Collection of multiple specimens from the same patient may be necessary to detect the virus. The possibility of a false negative result should be considered if the patient has clinical presentation or has had recent exposure. Absolute lymphocyte counton 07-29-2022 Lymphocytes Auto (Unsp spec) [#/Vol] 1.60 10*3/uL 0.83-4.51 [facility] Work Phone: Basophil percentageon 2021 Basophils/100 WBC (Bld) 0.4 % 0-1 [facility] Work Phone: Bilirubin [Mass/Vol] 0.30 mg/dL 0.20-1.00 [facility] Work Phone: Comment on above: For patients on eltr ombopag therapy, use of Dimension [place] TBIL is not recommended. Chloride [Moles/Vol] 105 mmol/L 98-107 [facility] Work Phone: Eosinophils/100 WBC (Bld) 0.0 % 0-5 [facility] Work Phone: Glucose [Mass/Vol] 77 mg/dL 74-106 [facility] Work Phone: Neutrophils (Bld) [#/Vol] 5.8 10*3/uL 2.0-7.7 [facility] Work Phone: Neutrophils/100 WBC (Bld) 72.3 % 47-70 [facility] Work Phone: Potassium [Moles/Vol] 3.9 mmol/L 3.5-5.1 [facility] Work Phone: [phone] Protein [Mass/Vol] 7.4 g/dL 6.4-8.2 [facility]: [phone] Sodium [Moles/Vol] 139 mmol/L 136-145 [facility] Work Phone: [phone] WBC (Bld) [#/Vol] 7.9 10*3/uL 4.4-11.0 [facility] Work Phone: Blood erythrocytes count (nu mber/volume)on 07-29-2022 RBC (Bld) [#/Vol] 4.02 10*6/uL 4.2-5.[address] [facility] [facility] Work Phone: Blood hemoglobin measurement (mass/volume)on 07-29-2022 Hemoglobin (Bld) [Mass/Vol] 12.2 g/dL 12.0-15.0 [facility] Work Phone: Blood lymphocytes/100 leukoc yteson 07-29-2022 Lymphocytes/100 WBC (Bld) 20.2 % 19-41 [facility] Work Phone: Blood monocytes/100 leukocyt eson 07-29-2022 Monocytes/100 WBC (Bld) 6.7 % 0-10 [facility] Work Phone: Blood platelet mean volumeon 07-29-2022 Platelet mean volume (Bld) [Entitic vol] 9.7 fL 6.2-12.0 [facility] Work Phone: Determination of erythrocyte mean corpuscular volume (MCV)on 07-29-2022 MCV (RBC) [Entitic vol] 94.5 fL 81-99 [facility] Work Phone: Hematocrit Auto (Bld) [Volum e fraction]on 07-29-2022 Hematocrit (Bld) [Volume fraction] 38.0 % 37-47 [facility] Work Phone: Laboratory - Chemistry and C hemistry - challengeon 07-29-2022 ALP [Catalytic activity/Vol] 176 U/L 45-117 [facility] Work Phone: ALT [Catalytic activity/Vol] 55 U/L 13-56 [facility] Work Phone: CO2 [Moles/Vol] 25.0 mmol/L 21.0-32.0 [facility] Work Phone: Free T4 [Mass/Vol] 0.78 ng/dL 0.76-1.46 [facility] Work Phone: Globulin (S) [Mass/Vol] 4.1 g/dL 2.2-4.2 [facility] Work Phone: Magnesium [Mass/Vol] 2.6 mg/dL 1.6-2.6 [facility] Work Phone: Urea nitrogen/Creatinine [Mass ratio] 19.9 mg/mg 10-20 [facility] Work Phone: [phone] Laboratory - Hematology and Cell countson 07-29-2022 Erythrocyte distribution width (RBC) [Entitic vol] 48.2 fL 35.1-43.9 [facility] Work Phone: Erythrocyte distribution width (RBC) [Ratio] 13.7 % 11.6-14.6 [facility] Work Phone: Immature granulocytes/100 WBC (Bld) 0.400 % 0.0-0.9 [facility] Work Phone: Comment on above: IG% - Immature Granu locytes (promyelocytes, myelocytes and metamyelocytes) > 1% indicates that a LEFT SHIFT is Present. MCH (RBC) [Entitic mass] 30.3 pg 27.0-32.0 [facility] Work Phone: Nucleated RBC/100 WBC (Bld) [Ratio] 0 % 0-5 [facility] Work Phone: MCHC Auto (RBC) [Mass/Vol]on 07-29-2022 MCHC (RBC) [Mass/Vol] 32.1 g/dL 32-36 [facility] Work Phone: No Panel Informationon 07-29 Estimated GFR (MDRD) Amer 46 mL/min >60 [facility] Work Phone: Comment on above: GFR Calc Estimated GFR (MDRD) Non-Af Amer 38 mL/min >60 [facility] Work Phone: Comment on above: Non- GFR Calc Thyroid Stimulating Hormone (TSH) 1.52 uIU/mL 0.358-3.74 [facility] Work Phone: Platelets bldon 07-29-2022 Platelets (Bld) [#/Vol] 266 10*3/uL 150-450 [facility] Work Phone: Serum or plasma albumin yue urement (mass/volume)on 07-29-2022 Albumin [Mass/Vol] 3.3 g/dL 3.2-5.0 [facility] Work Phone: Serum or plasma albumin/glob ulin mass ratioon 07-29-2022 Albumin/Globulin [Mass ratio] 0.8 {ratio} 0.9-2.4 [facility] Work Phone: Serum or plasma calcium yue urement (mass/volume)on 07-29-2022 Calcium [Mass/Vol] 9.2 mg/dL 8.5-10.1 [facility] Work Phone: Serum or plasma creatinine m easurement (mass/volume)on 07-29-2022 Creatinine [Mass/Vol] 1.41 mg/dL 0.55-1.02 [facility] Work Phone: Comment on above: The validity of the calculated GFR & GFRAA in patients over 70 years has not been determined. Clinical correlation is essential. Serum or plasma urea nitroge n measurement (mass/volume)on 07-29-2022 Urea nitrogen [Mass/Vol] 28 mg/dL 7-18 [facility] Work Phone: Thin prep Papanicolaou smear with manual screeningon 07-29-2022 Thin prep Papanicolaou smear with manual screening 27 U/L 15 [facility] Work Phone: Thin prep Papanicolaou smear with manual screening 9 - [facility] Work Phone: Whole blood hemoglobin A1c/t otal hemoglobin ratio (mass fraction)on 07-29-2022 HbA1c (Bld) [Mass fraction] 5.4 % 3.8-5.6 [facility] Work Phone: Comment on above: Normal < 5.7 % Predi abetic 5.7 - 6.4 % Diabetic >or= 6.5 % Please note range changes. No Panel Informationon 07-28 [facility] MRI LUMBAR SPINE WO IVCONon 05-18-2022 [facility] Basophil percentageon 2021 Creatinine [Mass/Vol] 1.5 mg/dL 0.55-1.02 [facility] Work Phone: Laboratory - Chemistry and C hemistry - challengeon 04-27-2022 GFR/1.73 sq M.predicted among non-blacks MDRD (S/P/Bld) [Vol rate/Area] 43.0000 mL/min/{1.73_m2} >60 [facility] Work Phone: No Panel Informationon 03-04 [facility] Whole blood hemoglobin A1c/t otal hemoglobin ratio (mass fraction)on 01-11-2022 HbA1c (Bld) [Mass fraction] 5.5 % 3.8-5.6 [facility] Work Phone: Comment on above: Normal < 5.7 % Predi abetic 5.7 - 6.4 % Diabetic >or= 6.5 % Please note range changes. Absolute lymphocyte counton 01-05-2022 Lymphocytes Auto (Unsp spec) [#/Vol] 2.59 10*3/uL 0.83-4.51 [facility] Work Phone: Basophil percentageon 2021 Basophil percentage 3.2 mg/dL 2.5-4.[address] [facility] [facility] [facility] Work Phone: Basophils/100 WBC (Bld) 0.6 % 0-1 [facility] Work Phone: Bilirubin [Mass/Vol] 0.30 mg/dL 0.20-1.00 [facility] Work Phone: Comment on above: For patients on eltr ombopag therapy, use of Dim[place] TBIL is not recommended. Chloride [Moles/Vol] 106 mmol/L 98-107 [facility] Work Phone: Cholesterol [Mass/Vol] 203 mg/dL <200 [facility] Work Phone: Comment on above: <200 mg/dL Desirable 200-240 mg/dL Borderline >240 mg/dL High Risk Eosinophils/100 WBC (Bld) 0.6 % 0-5 [facility] Work Phone: Glucose [Mass/Vol] 118 mg/dL 74-106 [facility] Work Phone: Comment on above: Fasting Glucose resu lt from 100 to 125 mg/dL suggests IMPAIRED HOMEOSTASIS per A.D.A. criteria. Neutrophils (Bld) [#/Vol] 3.5 10*3/uL 2.0-7.7 [facility] Work Phone: Neutrophils/100 WBC (Bld) 52.4 % 47-70 [facility] Work Phone: Potassium [Moles/Vol] 3.8 mmol/L 3.5-5.1 [facility] Work Phone: Protein [Mass/Vol] 7.5 g/dL 6.4-8.2 [facility] Work Phone: Sodium [Moles/Vol] 140 mmol/L 136-145 [facility] Work Phone: Triglyceride [Mass/Vol] 76 mg/dL <199 [facility] Work Phone: Comment on above: The drugs N-Acetylcy steine and Metamizole may falsely depress this assay.Serum Triglycerides Reference Interval Normal <150 mg/dL Borderline high 150 - 199 mg/dL High 200 - 499 mg/dL Very High > or = 500 mg/dL WBC (Bld) [#/Vol] 6.6 10*3/uL 4.4-11.0 [facility] Work Phone: Blood erythrocytes count (nu mber/volume)on 01-05-2022 RBC (Bld) [#/Vol] 4.10 10*6/uL 4.2-5.4 [facility] Work Phone: Blood hemoglobin measurement (mass/volume)on 01-05-2022 Hemoglobin (Bld) [Mass/Vol] 12.1 g/dL 12.0-15.0 [facility] Work Phone: Blood lymphocytes/100 leukoc yteson 01-05-2022 Lymphocytes/100 WBC (Bld) 39.0 % 19-41 [facility] Work Phone: Blood monocytes/100 leukocyt eson 01-05-2022 Monocytes/100 WBC (Bld) 7.1 % 0-10 [facility] Work Phone: Blood platelet mean volumeon 01-05-2022 Platelet mean volume (Bld) [Entitic vol] 9.7 fL 6.2-12.0 [facility] Work Phone: Determination of erythrocyte mean corpuscular volume (MCV)on 01-05-2022 MCV (RBC) [Entitic vol] 93.9 fL 81-99 [facility] Work Phone: Hematocrit Auto (Bld) [Volum e fraction]on 01-05-2022 Hematocrit (Bld) [Volume fraction] 38.5 % 37-47 [facility] Work Phone: Laboratory - Chemistry and C hemistry - challengeon 01-05-2022 ALP [Catalytic activity/Vol] 108 U/L 45-117 [facility] Work Phone: [phone] ALT [Catalytic activity/Vol] 20 U/L 13-56 [facility] Work Phone: [phone] CO2 [Moles/Vol] 27.0 mmol/L 21.0-32.0 [facility] Work Phone: [phone] Free T4 [Mass/Vol] 0.90 ng/dL 0.76-1.46 [facility] Work Phone: [phone] Globulin (S) [Mass/Vol] 4.1 g/dL 2.2-4.2 [facility] Work Phone: Urea nitrogen/Creatinine [Mass ratio] 15.5 mg/mg 10-20 [facility] Work Phone: [phone] Laboratory - Hematology and Cell countson 01-05-2022 Erythrocyte distribution width (RBC) [Entitic vol] 48.6 fL 35.1-43.9 [facility] Work Phone: [phone] Erythrocyte distribution width (RBC) [Ratio] 14.1 % 11.6-14.6 [facility] Work Phone: Immature granulocytes/100 WBC (Bld) 0.300 % 0.0-0.9 [facility] Work Phone: [phone] Comment on above: IG% - Immature Granu locytes (promyelocytes, myelocytes and metamyelocytes) > 1% indicates that a LEFT SHIFT is Present. MCH (RBC) [Entitic mass] 29.5 pg 27.0-32.0 [facility] Work Phone: [phone] Nucleated RBC/100 WBC (Bld) [Ratio] 0 % 0-5 [facility] Work Phone: [phone] MCHC Auto (RBC) [Mass/Vol]on 01-05-2022 MCHC (RBC) [Mass/Vol] 31.4 g/dL 32-36 [facility] Work Phone: No Panel Informationon 01-05 Estimated GFR (MDRD) Amer 38 mL/min >60 [facility] Work Phone: Comment on above: GFR Calc Estimated GFR (MDRD) Non-Af Amer 31 mL/min >60 [facility] Work Phone: Comment on above: Non- GFR Calc Parathyroid Hormone (Intact) 91.5 pg/mL 18.4-80.1 [facility] Work Phone: Thyroid Stimulating Hormone (TSH) 3.83 uIU/mL 0.358-3.74 [facility] Work Phone: Vitamin D 25-Hydroxy 39.6 ng/mL [facility] Work Phone: Comment on above: Vitamin D 25(OH) Sta tus Range Deficiency <20 ng/mL (50nmol/L) Insufficiency 20 - 30 ng/mL (50 - 75 nmol/L) Sufficiency 30 - 100 ng/mL (75 - 250 nmol/L) Toxicity >100 ng/mL (>250 nmol/L) Platelets bldon 01-05-2022 Platelets (Bld) [#/Vol] 281 10*3/uL 150-450 [facility] Work Phone: Serum or plasma albumin yue urement (mass/volume)on 01-05-2022 Albumin [Mass/Vol] 3.4 g/dL 3.2-5.0 [facility] Work Phone: Serum or plasma albumin/glob ulin mass ratioon 01-05-2022 Albumin/Globulin [Mass ratio] 0.8 {ratio} 0.9-2.4 [facility] Work Phone: Serum or plasma calcium yue urement (mass/volume)on 01-05-2022 Calcium [Mass/Vol] 9.1 mg/dL 8.5-10.1 [facility] Work Phone: Serum or plasma cholesterol in HDL measurement (mass/volume)on 01-05-2022 Cholesterol in HDL [Mass/Vol] 77 mg/dL >40 [facility] Work Phone: Comment on above: The drugs N-Acetylcy steine and Metamizole may falsely depress this assay. Reference Range HDL <40 mg/dL Low HDL Cholesterol HDL >or= 60 mg/dL High HDL Cholesterol Serum or plasma cholesterol in VLDL measurement (mass/volume)on 01-05-2022 Cholesterol in VLDL [Mass/Vol] 15 mg/dL 5-40 [facility] Work Phone: Serum or plasma creatinine m easurement (mass/volume)on 01-05-2022 Creatinine [Mass/Vol] 1.68 mg/dL 0.55-1.02 [facility] Work Phone: Comment on above: The validity of the calculated GFR & GFRAA in patients over 70 years has not been determined. Clinical correlation is essential. Serum or plasma low density lipoprotein (LDL) cholesterol measurement (mass/volume)on 01-05-2022 Cholesterol in LDL [Mass/Vol] 111 mg/dL 0-130 [facility] Work Phone: Serum or plasma urea nitroge n measurement (mass/volume)on 01-05-2022 Urea nitrogen [Mass/Vol] 26 mg/dL 7-18 [facility] Work Phone: Thin prep Papanicolaou smear with manual screeningon 01-05-2022 Thin prep Papanicolaou smear with manual screening 17 U/L 15-37 [facility] Work Phone: Thin prep Papanicolaou smear with manual screening 7 5-15 [facility] Work Phone: MRI CERVICAL SPINE WO IVCONo n 10-28-2021 MRI CERVICAL SPINE WO IVCON * * *Final Report* * * DATE OF EXAM: Oct 28 2021 10:41AM M [id number] - MRI CERVICAL SPINE WO IVCON / PROCEDURE REASON: Spinal stenosis of cervical region * * * * Physician Interpretation * * * * RESULT: EXAMINATION: MRI CERVICAL SPINE WO IVCON, MRI THORACIC SPINE WO IVCON CLINICAL HISTORY: Spinal stenosis of cervical region. Neck pain radiating to both arms. Left hand tingling. TECHNIQUE: Routine cervical and thoracic spine MR protocol without gadolinium. MQ: [id number] COMPARISON: None. RESULT: CERVICAL: Counting reference: Craniocervical junction. Anatomic Variants: None. Localizer images: No additional findings. Alignment: Straightening of the normal cervical lordosis. Craniocervical junction: Craniocervical junction is normal. Cord: The cervical spinal cord is within normal limits of signal intensity and morphology. Bone marrow signal/fracture: No evidence of pathologic marrow infiltration. No evidence of prior fracture. Plate degenerative changes most pronounced at C5-C6. Cervical soft tissues: The paraspinal soft tissues are within normal limits. C2-C3: Canal and foramina are patent. C3-C4: Canal and foramina are patent. C4-C5: The spinal canal is patent. Mild facet and uncovertebral joint degenerative changes contributes to mild bilateral foraminal stenosis. C5-C6: Mild spinal canal stenosis secondary disc bulging and dorsal osteophytic endplate spurring. Facet and uncovertebral joint degenerative changes contributes to moderate right and mild left foraminal stenosis. C6-C7: Canal and foramina are patent. C7-T1: Canal and foramina are patent. THORACIC: Counting reference: Lumbosacral junction. For the purposes of this report, L4-5 is considered the level of the iliac crest and assume there are 5 lumbar-type vertebrae. Anatomic variant: None. Margin Clerk (topogram) images: Large presumed renal cysts. Alignment: Alignment is anatomic. Cord: The thoracic spinal cord is within normal limits of signal intensity and morphology. Bone marrow signal/fracture: No evidence of pathologic marrow infiltration. No evidence of prior fracture. Type II endplate marrow changes at T8-T9. Small Schmorl's node along the inferior endplate of T8. Thoracic soft tissues: Large hiatal hernia containing portions of abdominal fat. Canal and foramina: Moderate multilevel endplate degenerative changes. Minimal disc bulging at T5-T6, T8-T9, T10-T11 and T11-T12 with up to mild spinal canal stenosis at T11-T12. No high-grade spinal canal stenosis. Severe bilateral foraminal stenosis at T8-T9. Moderate bilateral at T7-T8 and T9-T10. IMPRESSION: Mild cervical spondylosis most pronounced at C5-C6 without high-grade spinal canal stenosis. Foraminal stenosis is most notable at C5-C6 where is up to moderate in degree on the left. Moderate thoracic spondylosis without high-grade spinal canal stenosis. Up to severe bilateral thoracic foraminal stenosis at T8-T9. Large hiatal hernia. Cervical Anatomic Variant: None. Assume 7 cervical vertebrae with counting from the craniocervical junction. Anatomic Thoracic/Lumbar Variant: None. L4-5 is considered the level of the iliac crest and assume there are 5 lumbar-type vertebrae. Transcribed Using Voice Recognition Transcribe Date/Time: Oct 28 2021 11:48A Dictated by: GAYLE HOGAN DO This examination was interpreted and the report reviewed and electronically signed by: GAYLE HOGAN DO on Oct 28 2021 11:59AM EST [id number] [facility] MRI THORACIC SPINE WO IVCONo n 10-28-2021 MRI THORACIC SPINE WO IVCON * * *Final Report* * * DATE OF EXAM: Oct 28 2021 10:41AM [facility] 0325 - MRI THORACIC SPINE WO IVCON / PROCEDURE REASON: Cord compression (HCC) * * * * Physician Interpretation * * * * RESULT: EXAMINATION: MRI CERVICAL SPINE WO IVCON, MRI THORACIC SPINE WO IVCON CLINICAL HISTORY: Spinal stenosis of cervical region. Neck pain radiating to both arms. Left hand tingling. TECHNIQUE: Routine cervical and thoracic spine MR protocol without gadolinium. MQ: [id number] COMPARISON: None. RESULT: CERVICAL: Counting reference: Craniocervical junction. Anatomic Variants: None. Localizer images: No additional findings. Alignment: Straightening of the normal cervical lordosis. Craniocervical junction: Craniocervical junction is normal. Cord: The cervical spinal cord is within normal limits of signal intensity and morphology. Bone marrow signal/fracture: No evidence of pathologic marrow infiltration. No evidence of prior fracture. Plate degenerative changes most pronounced at C5-C6. Cervical soft tissues: The paraspinal soft tissues are within normal limits. C2-C3: Canal and foramina are patent. C3-C4: Canal and foramina are patent. C4-C5: The spinal canal is patent. Mild facet and uncovertebral joint degenerative changes contributes to mild bilateral foraminal stenosis. C5-C6: Mild spinal canal stenosis secondary disc bulging and dorsal osteophytic endplate spurring. Facet and uncovertebral joint degenerative changes contributes to moderate right and mild left foraminal stenosis. C6-C7: Canal and foramina are patent. C7-T1: Canal and foramina are patent. THORACIC: Counting reference: Lumbosacral junction. For the purposes of this report, L4-5 is considered the level of the iliac crest and assume there are 5 lumbar-type vertebrae. Anatomic variant: None. Margin Clerk (topogram) images: Large presumed renal cysts. Alignment: Alignment is anatomic. Cord: The thoracic spinal cord is within normal limits of signal intensity and morphology. Bone marrow signal/fracture: No evidence of pathologic marrow infiltration. No evidence of prior fracture. Type II endplate marrow changes at T8-T9. Small Schmorl's node along the inferior endplate of T8. Thoracic soft tissues: Large hiatal hernia containing portions of abdominal fat. Canal and foramina: Moderate multilevel endplate degenerative changes. Minimal disc bulging at T5-T6, T8-T9, T10-T11 and T11-T12 with up to mild spinal canal stenosis at T11-T12. No high-grade spinal canal stenosis. Severe bilateral foraminal stenosis at T8-T9. Moderate bilateral at T7-T8 and T9-T10. IMPRESSION: Mild cervical spondylosis most pronounced at C5-C6 without high-grade spinal canal stenosis. Foraminal stenosis is most notable at C5-C6 where is up to moderate in degree on the left. Moderate thoracic spondylosis without high-grade spinal canal stenosis. Up to severe bilateral thoracic foraminal stenosis at T8-T9. Large hiatal hernia. Cervical Anatomic Variant: None. Assume 7 cervical vertebrae with counting from the craniocervical junction. Anatomic Thoracic/Lumbar Variant: None. L4-5 is considered the level of the iliac crest and assume there are 5 lumbar-type vertebrae. Transcribed Using Voice Recognition Transcribe Date/Time: Oct 28 2021 11:48A Dictated by: GAYLE HOGAN DO This examination was interpreted and the report reviewed and electronically signed by: GAYLE HOGAN DO on Oct 28 2021 11:59AM EST [id number] [facility] Clinical Summary: HMSPatient IDon 06-30-2018 SOP Invalid Interpretation Code [facility] Work Phone: Clinical Summary: Scanned RO S Summaryon 06-30-2018 endocrine ROS Complains Invalid Interpretation Code [facility] Work Phone: endocrine system, review of, comments Weight Loss Invalid Interpretation Code [facility] Work Phone: genitourinary review of systems, E&M Complains Invalid Interpretation Code [facility] Work Phone: genitourinary system review of systems, comments Frequenent Urination Invalid Interpretation Code [facility] Work Phone: Lymphocytes Auto #/vol (Bld) Denies Invalid Interpretation Code [facility] Work Phone: Review of Systems Neurologic comment Weakness Invalid Interpretation Code [facility] Work Phone: Review of Systems Skin comment Dryness Invalid Interpretation Code [facility] Work Phone: ROS Cardiac: Comments Ankle Swelling Invalid Interpretation Code [facility] Work Phone: ROS cardiovascular E&M Complains Invalid Interpretation Code [facility] Work Phone: ROS ENT E&M Denies Invalid Interpretation Code [facility] Work Phone: ROS gastrointestinal E&M Denies Invalid Interpretation Code [facility] Work Phone: ROS general E&M Denies Invalid Interpretation Code [facility] Work Phone: ROS Musculoskeletal comments Joint Swelling,Muscle Weakness,Pain,Arthritis Invalid Interpretation Code [facility] Work Phone: ROS musculoskeletal E&M Complains Invalid Interpretation Code [facility] Work Phone: ROS neurological E&M Complains Invalid Interpretation Code [facility] Work Phone: ROS Psych comment Difficulty Sleeping Invalid Interpretation Code [facility] Work Phone: ROS psychiatric E&M Complains Invalid Interpretation Code [facility] Work Phone: ROS Pulmonary comment Cough Invalid Interpretation Code [facility] Work Phone: ROS pulmonary E&M Complains Invalid Interpretation Code [facility] Work Phone: ROS skin E&M Complains Invalid Interpretation Code [facility] Work Phone: Office Visit: [facility] - [address] [place], [place] [id number] t with practice, Rm:on 06-30-2018 NEGATED: Highlighted rowMRI (magnetic resonance imaging) history of the right hand on 06/08/2018 at [facility] Invalid Interpretation Code [facility] Work Phone: NEGATED: Highlighted rowProtein mass conc Done Invalid Interpretation Code [facility] Work Phone: Clinical Lists Update: Prelo ad Extendedon 06-29-2018 Tobacco smoking status NHIS Tobacco smoking status NHIS Invalid Interpretation Code [facility] Work Phone: Office Visiton 08-10-2017 Dietary management education, guidance, and counseling (procedure) yes Invalid Interpretation Code [facility] Work Phone: Documentation of current medications (procedure) Done Invalid Interpretation Code [facility] Work Phone: [phone] Protein mass conc Done Invalid Interpretation Code [facility] Work Phone: [phone] Tobacco smoking status NHIS Never smoker Invalid Interpretation Code [facility] Work Phone: Tobacco use CPHS Never smoker Invalid Interpretation Code [facility] Work Phone: Office Visiton 07-13-2017 Dietary management education, guidance, and counseling (procedure) yes Invalid Interpretation Code [facility] Work Phone: [phone] Documentation of current medications (procedure) Done Invalid Interpretation Code [facility] Work Phone: [phone] Tobacco use CPHS Never smoker Invalid Interpretation Code [facility] Work Phone: [phone] Office Visiton 06-17-2017 Dietary management education, guidance, and counseling (procedure) yes Invalid Interpretation Code [facility] Work Phone: [phone] Documentation of current medications (procedure) Done Invalid Interpretation Code [facility] Work Phone: [phone] Tobacco use CPHS Never smoker Invalid Interpretation Code [facility] Work Phone: [phone] Office Visiton 06-01-2017 Dietary management education, guidance, and counseling (procedure) yes Invalid Interpretation Code [facility] Work Phone: [phone] Documentation of current medications (procedure) Done Invalid Interpretation Code [facility] Work Phone: [phone] Tobacco use CPHS Never smoker Invalid Interpretation Code [facility] Work Phone: [phone] Office Visiton 03-17-2017 Dietary management education, guidance, and counseling (procedure) yes Invalid Interpretation Code [facility] Work Phone: [phone] Documentation of current medications (procedure) Done Invalid Interpretation Code [facility] Work Phone: [phone] Tobacco use CPHS Never smoker Invalid Interpretation Code [facility] Work Phone: [phone] No Panel Information [facility] Vital Signs Date Time Vital Sign Value Performing Clinician Facility 03-08-2025 19:19-0400 Diastolic blood pressure 96 mm[Hg] Dr. Susan Yañez MD Work Phone: [facility] 03-08-2025 19:19-0400 Heart rate 74 /min Dr. Susan Yañez MD Work Phone: [facility] 03-08-2025 19:19-0400 Respiratory rate 14 /min Dr. Susan Yañez MD Work Phone: [facility] 03-08-2025 19:19-0400 SaO2% (BldA) [Mass fraction] 98 % Dr. Susan Yañez MD Work Phone: [facility] 03-08-2025 19:19-0400 Systolic blood pressure 138 mm[Hg] Dr. Susan Yañez MD Work Phone: [facility] 03-08-2025 16:35-0400 Body height 160.[address] Susan Yañez MD Work Phone: [facility] 03-08-2025 16:35-0400 Body mass index (BMI) [Ratio] 34.2 kg/m2 Dr. Susan Yañez MD Work Phone: [facility] 03-08-2025 16:35-0400 Body temperature 98.6 [degF] Dr. Susan Yañez MD Work Phone: [facility] 03-08-2025 16:35-0400 Body weight 87.[address] Susan Yañez MD Work Phone: [facility] 06-22-2023 10:37-0400 Body temperature 98 [degF] Dr. Susan Yañez Work Phone: [facility] 10-25-2022 11:05-0500 Heart rate 88 /min [facility] 10-25-2022 11:05-0500 Respiratory rate 17 /min [facility] 10-25-2022 11:05-0500 SaO2% (BldA) [Mass fraction] 96 % [facility] 10-25-2022 10:10-0500 Body height 160.02 cm [facility] 10-25-2022 10:10-0500 Body mass index (BMI) [Ratio] 37.2 kg/m2 [facility] 10-25-2022 10:10-0500 Body temperature 96.6 [degF] [facility] 10-25-2022 10:10-0500 Body weight 95.25 kg [facility] 10-25-2022 10:10-0500 Diastolic blood pressure 73 mm[Hg] [facility] 10-25-2022 10:10-0500 Systolic blood pressure 138 mm[Hg] [facility] 06-03-2022 12:02-0400 Body weight 106.28 kg Aftab Ahmadi PA-C Work Phone: [facility] 06-03-2022 12:02-0400 Diastolic blood pressure 71 mm[Hg] Aftab Ahmadi PA-C Work Phone: [facility] 06-03-2022 12:02-0400 Heart rate 72 /min Aftab Ahmadi PA-C Work Phone: [facility] 06-03-2022 12:02-0400 SaO2% (BldA) [Mass fraction] 99 % Aftab Ahmadi PA-C Work Phone: [facility] 06-03-2022 12:02-0400 Systolic blood pressure 172 mm[Hg] Aftab Ahmadi PA-C Work Phone: [facility] 03-09-2022 09:32-0400 Body height 162.6 cm Jasper Grater [employer]LECT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 Work Phone: [facility] 03-09-2022 09:32-0400 Body weight 107.96 kg Jasper Grater [employer]LECT[employer]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 Work Phone: [facility] 04-24-2015 10:14-0400 BMI (Body Mass Index) 41.88 kg/m2 [facility] Work Phone: 04-24-2015 10:14-0400 Weight 110.68 kg [facility] Work Phone: 01-22-2015 12:50-0400 BP Diastolic 80 mm[Hg] [facility] Work Phone: 01-22-2015 12:50-0400 BP Systolic 128 mm[Hg] Derek HAQUE [facility] Work Phone: 01-22-2015 12:50-0400 Height 162.56 cm Derek HAQUE [facility] Work Phone: 01-22-2015 12:50-0400 Pulse (Heart Rate) 70 /min [facility] Work Phone: NEGATED: Highlighted [id number] 12:47-0400 BMI (Body Mass Index) 41.6 kg/m2 Sabrina Blackert [employer] [facility] Work Phone: NEGATED: Highlighted [id number] 12:47-0400 BP Diastolic 70 mm[Hg] Sabrina Blackert [employer] [facility] Work Phone: NEGATED: Highlighted [id number] 12:47-0400 BP Diastolic 75 mm[Hg] Sabrina Blackert [employer] [facility] Work Phone: NEGATED: Highlighted [id number] 12:47-0400 BP Systolic 141 mm[Hg] Sabrina Blackert [employer] [facility] Work Phone: NEGATED: Highlighted [id number] 12:47-0400 BP Systolic 140 mm[Hg] Sabrina Blackert [employer] [facility] Work Phone: NEGATED: Highlighted [id number] 12:47-0400 Height 160.02 cm Sabrina Blackert [employer] [facility] Work Phone: NEGATED: Highlighted [id number] 12:47-0400 Height 160 cm Sabrina Blackert [employer] [facility] Work Phone: NEGATED: Highlighted [id number] 12:47-0400 Pulse (Heart Rate) 64 /min Sabrina Blackert [employer] [facility] Work Phone: NEGATED: Highlighted [id number] 12:47-0400 Weight 106.14 kg Sabrina Alexandre LPN [facility] Work Phone: NEGATED: Highlighted [id number] 12:47-0400 Weight 106 kg Sabrina Alexandre LPN [facility] Work Phone: Encounters Encounter Date Encounter Type Care Provider Facility Start: 03-08-2025 End: 03-08-2025 Emergency department patient visit Dr. Susan Yañez MD Work Phone: -Emergency Department Work Phone: Start: 02-19-2025 End: 02-19-[address] Susan Yañez MD Work Phone: [facility] Work Phone: Start: 02-19-2025 End: 02-19-[address] Susan Yañez MD -Laboratory, [facility] Start: 02-19-2025 End: 02-19-2025 ambulatory Susan Yañez Facility:[facility] Start: 11-02-2024 End: 11-02-[address] Susan Yañez MD -[facility] Start: 11-02-2024 End: 11-02-2024 ambulatory Susan Yañez Facility:[facility] Start: 07-23-2024 ambulatory Susan Yañez Facilit y:[facility] Start: 05-11-2024 End: 05-11-2024 ambulatory FLORENCE FINLEY Facility:[facility] Comment on above: Right hand pain (Cee alfredo Dx); Pain Start: 05-11-2024 End: 05-11-2024 Patient encounter procedure Florence Finley DO Work Phone: Orthopaedics Comment on above: Trigger ring finger of right hand (Primary Dx); Arthritis of finger Start: 05-11-2024 End: 05-11-2024 Subsequent hospital visit by physician [facility] Grajeda Mob Work Phone: Radiology Comment on above: Right hand pain [M79 .641] Start: 05-08-2024 Orders Only Florence lewis DO Work Phone: Orthopaedics Comment on above: Degenerative TFCC te ar, left (Primary Dx) Start: 02-23-2024 End: 02-23-2024 ambulatory [facility] Work Phone: Start: 02-23-2024 End: 02-23-2024 Patient encounter procedure [facility] Start: 02-14-2024 End: 02-14-2024 ambulatory [facility] Work Phone: Start: 02-14-2024 End: 02-14-2024 Patient encounter procedure [facility] Start: 11-30-2023 End: 11-30-2023 ambulatory [facility] Work Phone: Start: 11-30-2023 End: 11-30-[address] [facility] Work Phone: Start: 09-07-2023 End: 09-07-[address] Susan Yañez Work Phone: [facility] Work Phone: Start: 09-07-2023 End: 09-07-[address] Susan Yañez Work Phone: [facility] Work Phone: Start: 08-04-2023 End: 08-04-[address] Susan Yañez Work Phone: [facility] Start: 06-22-2023 End: 06-22-[address] Susan Yañez Work Phone: [facility] Work Phone: Start: 03-18-2023 End: 03-18-2023 ambulatory [facility] Work Phone: Start: 03-18-2023 End: 03-18-[address] [facility] Start: 03-16-2023 End: 03-16-2023 Patient encounter procedure Sudeep Carlton MD, PhD Work Phone: Orthopaedics Comment on above: Degenerative TFCC te ar, left (Primary Dx); Morbid obesity (HCC) Start: 03-16-2023 End: 03-16-2023 Subsequent hospital visit by physician Myn[facility] Work Phone: Radiology Comment on above: Left wrist pain [M25 .532] Start: 03-15-2023 Orders Only Desirae Moise PA-C Work Phone: Orthopaedics Comment on above: Left wrist pain (Cee alfredo Dx) Start: 03-02-2023 End: 03-02-2023 ambulatory [facility] Work Phone: Start: 03-02-2023 End: 03-02-2023 Discharged Recurring [facility] Therapy Work Phone: Start: 03-02-2023 Registered Recurring [facility] Start: 02-22-2023 End: 02-22-2023 Patient [address] [facility] Start: 01-25-2023 End: 01-25-2023 ambulatory [facility] Work Phone: Start: 01-25-2023 End: 01-25-2023 Patient [address] [facility] Start: 12-01-2022 Telephone encounter Chauncey friedman MD Work Phone: Orthopaedics Comment on above: Appointment Start: 11-18-2022 End: 11-18-2022 ambulatory [facility] Work Phone: Start: 11-18-2022 End: 11-18-2022 Patient encounter procedure [facility] Start: 10-25-2022 End: 10-25-2022 Emergency department patient visit [facility]-Emergency Department Start: 09-30-2022 Refill Thomas winchester MD Work Phone: Ophthalmology Comment on above: Refill Request Start: 09-23-2022 End: 09-23-2022 Patient encounter procedure Florence Finley DO Work Phone: Orthopaedics Comment on above: Chronic left shoulde r pain (Primary Dx); Impingement syndrome of left shoulder; Calcific tendinitis of left shoulder Start: 09-14-2022 End: 09-14-2022 ambulatory [facility] Work Phone: Start: 09-14-2022 End: 09-14-[address] [facility] Start: 08-30-2022 Refill Thomas winchester MD Work Phone: Ophthalmology Comment on above: Refill Request; Refi ll Request Start: 08-17-2022 End: 08-17-2022 ambulatory [facility] Work Phone: Start: 08-17-2022 End: 08-17-2022 Patient encounter procedure [facility]-Laboratory, [facility] Start: 07-29-2022 End: 07-29-[address] Susan Yañez Work Phone: [facility] Work Phone: Start: 07-29-2022 End: 07-29-[address] Susan Yañez Work Phone: [facility] Start: 07-28-2022 End: 07-28-2022 Patient encounter procedure Florence Finley DO Work Phone: Orthopaedics Comment on above: Chronic left shoulde r pain (Primary Dx); Impingement syndrome of left shoulder; Calcific tendinitis of left shoulder Start: 07-28-2022 End: 07-28-2022 Subsequent hospital visit by physician [facility] Nicci Ferris Work Phone: Radiology Comment on above: Chronic left shoulde r pain [M25.512, G89.29] Start: 07-22-2022 End: 07-22-2022 ambulatory Arianne Moise OT/L Work Phone: [facility] Comment on above: 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 (Primary Dx) Start: 06-10-2022 End: 06-10-2022 Patient encounter procedure Rory Gutierrez MD Work Phone: Orthopaedics Comment on above: Left leg pain (Prima ry Dx) Start: 06-09-2022 End: 06-09-2022 Patient encounter procedure Florence Finley DO Work Phone: Orthopaedics Comment on above: Degenerative TFCC te ar, left (Primary Dx); Scapholunate ligament injury with no instability, left, initial encounter; Injury of triangular fibrocartilage complex (TFCC) of left wrist, initial encounter; Tendinitis of extensor tendon of hand Start: 06-03-2022 End: 06-03-2022 Patient encounter procedure Aftab Ahmadi PA-C Work Phone: [facility] [place] Comment on above: 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, unspecified back pain laterality (Primary Dx); Lumbar degenerative disc disease Start: 06-01-2022 Telephone encounter Rory dc MD Work Phone: Orthopaedics Comment on above: Chart prep Start: 05-19-2022 End: 05-19-2022 Patient encounter procedure Florence Finley DO Work Phone: Orthopaedics Comment on above: Degenerative TFCC te ar, left (Primary Dx); Scapholunate ligament injury with no instability, left, initial encounter Start: 05-18-2022 End: 05-18-2022 Subsequent hospital visit by physician [facility] (I-Stat/1.5t) Work Phone: Radiology Comment on above: Spinal stenosis of l umbar region with neurogenic claudication [M48.062] Start: 05-13-2022 Telephone encounter Aftab shelton PA-C Work Phone: Neurology Comment on above: Prescription Start: 04-29-2022 End: 04-29-2022 ambulatory Jade Melgoza PT, DPT [facility] Comment on above: Chronic left-sided l ow back pain with left-sided sciatica (Primary Dx) Start: 04-27-2022 End: 04-27-[address] Susan Yañez Work Phone: [facility] Start: 04-20-2022 End: 04-20-[address] Susan Yañez Work Phone: [facility] Start: 03-31-2022 End: 03-31-2022 Patient encounter procedure Florence Finley DO Work Phone: Orthopaedics Comment on above: Injury of triangular fibrocartilage complex (TFCC) of left wrist, initial encounter (Primary Dx); Scapholunate ligament injury with no instability, left, initial encounter; Tendinitis of extensor tendon of hand Start: 03-19-2022 End: 03-19-2022 Patient encounter procedure [facility] Start: 03-09-2022 End: 03-09-2022 Patient encounter procedure Jasper Madrigal APRN.CNP Work Phone: Orthopaedics Comment on above: 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, subsequent encounter (Primary Dx); Lumbar degenerative disc disease; 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, subsequent encounter Start: 03-04-2022 Telephone encounter Jade thakur PT, DPT Work Phone: [facility] Comment on above: Appointment (resched ule please the cancelled re-check in PT) Start: 03-04-2022 End: 03-04-2022 Subsequent hospital visit by physician [facility] (1.5t) Radiology Comment on above: Arthralgia of left w rist [M25.532] Start: 03-02-2022 End: 03-02-2022 ambulatory Jade Melgoza PT, DPT Work Phone: [facility] Comment on above: Chronic left-sided l ow back pain with left-sided sciatica (Primary Dx); Parkinson's disease (HCC) Start: 02-25-2022 End: 02-25-2022 ambulatory [facility] Comment on above: Chronic left-sided l ow back pain with left-sided sciatica (Primary Dx) Start: 02-23-2022 End: 02-23-2022 ambulatory [facility] Comment on above: Chronic left-sided l ow back pain with left-sided sciatica (Primary Dx) Start: 02-16-2022 End: 02-16-2022 ambulatory [facility] Comment on above: Chronic left-sided l ow back pain with left-sided sciatica (Primary Dx) Start: 02-11-2022 End: 02-11-2022 ambulatory [facility] Comment on above: Chronic left-sided l ow back pain with left-sided sciatica (Primary Dx) Start: 02-11-2022 End: 02-11-2022 Patient encounter procedure Chauncey Yousif MD Work Phone: Orthopaedics Comment on above: 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, subsequent encounter (Primary Dx) Start: 02-09-2022 Telephone encounter Florence Finley DO Work Phone: Orthopaedics Comment on above: Patient Question; Amadeo batesnt Update Start: 02-05-2022 End: 02-05-2022 Subsequent hospital visit by physician [facility] (1.5t) Radiology Comment on above: Arthralgia of left w rist [M25.532] Start: 01-11-2022 End: 01-11-2022 Patient encounter procedure [facility] Start: 01-05-2022 End: 01-05-2022 Patient encounter procedure [facility] Start: 08-11-2021 End: 01-13-2022 Preprocedural examination done Florence Finley DO Work Phone: [facility] Start: 05-25-2021 Telephone encounter Jacky Encarnacion MD Work Phone: Orthopaedics Comment on above: Appointment Reschedu led Start: 06-30-2018 End: 06-30-2018 Patient encounter procedure Sonja Ha MD Work Phone: [facility] Work Phone: Procedures Date Procedure Procedure Detail Performing Clinician Start: 03-08-2025 CT of soft tissues o f neck with contrast Dr. Susan Yañez MD Work Phone: Start: 05-11-2024 Radex hand minimum 3 views Florence Finley DO Work Phone: Start: 11-30-2023 Plain chest X-ray Start: 09-07-2023 Plain chest X-ray Dr. Rama Yañez Work Phone: Start: 06-22-2023 Radiologic examinati on of knee Dr. Susan Yañez Work Phone: Start: 03-18-2023 Plain X-ray of shoulder Start: 03-16-2023 Radex wrist complete minimum 3 views Desirae Moise PA-C Work Phone: Start: 02-22-2023 Plain X-ray of shoulder Start: 01-25-2023 Plain chest X-ray Start: 11-18-2022 X-ray of chest posteroanterior view Start: 09-14-2022 Radiologic examinati on of knee Start: 08-03-2022 Arthrocentesis aspir &/inj major jt/bursa w/o us Florence Finley DO Work Phone: Start: 07-28-2022 Radex shoulder compl ete minimum 2 views Florence Finley DO Work Phone: Start: 05-19-2022 Injection 1 tendon sheath/ligament aponeurosis Florence Finley DO Work Phone: Start: 05-18-2022 Mri spinal canal lum bar w/o contrast material Aftab Ahmadi PA-C Work Phone: Start: 04-27-2022 CT of limb regions Dr. Susan Yañez Work Phone: Start: 03-19-2022 Ultrasonography of limb Start: 03-04-2022 Mri any jt upper ext remity w/o contrast matrl Elsaluma Finley DO Work Phone: Start: 02-05-2022 Mri any jt upper ext remity w/o contrast matrl Elsaluma Finley DO Work Phone: Start: 06-30-2018 End: 06-30-2018 Blood pressure outside of normal parameters - follow-up documented Sonja Ha MD Work Phone: Start: 06-30-2018 End: 06-30-2018 BMI documented as above normal parameters - follow-up documented Sonja Ha [...] Arthrocentesis aspir&/inj major jt/bursa w/o us Derek Vazquez Work Phone: Start: 12-22-2016 End: 12-30-2016 Drain/inject, joint/bursa Derek Vazquez Work Phone: Start: 03-01-2016 End: 03-17-2016 Arthrocentesis aspir&/inj major jt/bursa w/o us Derek Vazquez Work Phone: Start: 03-01-2016 End: 03-17-2016 Drain/inject, joint/bursa Derek Tillman George Work Phone: Start: 01-01-2016 End: 01-19-2016 Arthrocentesis aspir&/inj major jt/bursa w/o us Derek Vazquez Work Phone: Start: 01-01-2016 End: 01-19-2016 Drain/inject, joint/bursa Derek Vazquez Work Phone: Plan of Treatment Date Care Activity Detail Author Start: 03-08-2025 [facility] Start: 01-21-2025 Urine microalbumin profile [facility] Start: 07-19-2024 End: 07-19-2024 Patient encounter procedure 07/19/2024 9:00 AM EDT Office Visit Orthopaedics [address] [place] [address] Florence Finley DO [address] [place], [place] [id number] 2 m f/u, right hand Orthopaedics Comment on above: 2 m f/u, right hand Start: 07-15-2024 Covid-19 Vaccine () Covid-19 Vaccine () [facility] Start: 07-15-2024 Covid-19 Vaccine ( season) Covid-19 Vaccine () [facility] Start: 07-15-2024 Influenza vaccination C [facility] Start: 07-06-2024 End: 07-06-2024 Patient encounter procedure Radiology Comment on above: xr hand,Rt hand pain follow up, Rt Start: 05-11-2024 End: 05-11-2024 Patient encounter procedure Radiology Comment on above: left hand pain follow up hand pain Start: 11-14-2023 Advance Directive Discussion Advance Directive Discussion [facility] Start: 11-14-2023 Behavioral Health Screening Behavioral Health Screening [facility] Start: 07-15-2023 Covid-19 Vaccine ( season) Covid-19 Vaccine (4 - 2023-24 season) [facility] Start: 07-15-2023 Influenza vaccination INFLUENZ A (Season Ended) [facility] Start: 11-14-2022 ADVANCE DIRECTIVE DISCUSSION ADVANCE DIRECTIVE DISCUSSION [facility] Start: 11-14-2022 DEPRESSION ASSESSMENT DEPRESSION ASS ESSMENT [facility] Start: 07-15-2022 Influenza vaccination C [facility] Start: 04-04-2022 COVID-19 VACCINE (4 - Booster for Moderna series) COVID-19 VACCINE (4 - Booster for Moderna series) [facility] Start: 03-30-2022 COVID-19 VACCINE (4 - Booster for Moderna series) COVID-19 VACCINE (4 - Booster for Moderna series) [facility] Start: 03-02-2022 COVID-19 VACCINE (4 - Booster for Moderna series) COVID-19 VACCINE (4 - Booster for Moderna series) [facility] Start: 11-14-2021 ADVANCE DIRECTIVE DISCUSSION ADVANCE DIRECTIVE DISCUSSION [facility] Start: 11-14-2021 DEPRESSION ASSESSMENT DEPRESSION ASS ESSMENT [facility] Start: 07-15-2021 Influenza vaccination INFLUENZA (#1) [facility] Start: 2018 RSV Vaccine (1 - 1-d ose 75+ series) RSV Vaccine (1 - 1-dose 75+ series) [facility] Start: 06-30-2018 End: 06-30-2018 Appointment Appointment [facility] [place] [facility] Work Phone: Start: 06-02-2018 Pneumococcal Vaccine : 65+ (2 of 2 - PPSV23 or PCV20) Pneumococcal Vaccine: 65+ (2 of 2 - PPSV23 or PCV20) [facility] Start: 06-02-2018 PNEUMOCOCCAL: 65+ (2 - PPSV23 if available, else PCV20) PNEUMOCOCCAL: 65+ (2 - PPSV23 if available, else PCV20) [facility] Start: 06-02-2018 PNEUMOCOCCAL: 65+ (2 - PPSV23 or PCV20) PNEUMOCOCCAL: 65+ (2 - PPSV23 or PCV20) [facility] Start: 08-24-2017 End: 08-24-2017 Appointment Appointment [facility] Work Phone: Start: 08-24-2017 End: 08-24-2017 Appointment Appointment [facility] Work Phone: Start: 08-10-2017 End: 08-10-2017 Appointment Appointment [facility] Work Phone: Start: 07-13-2017 End: 07-13-2017 Appointment Appointment [facility] Work Phone: Start: 06-28-2017 End: 06-28-2017 Appointment Appointment [facility] Work Phone: Start: 06-01-2017 End: 06-01-2017 Appointment Appointment [facility] Work Phone: Start: 06-01-2017 End: 06-10-2017 Mri any jt upper extremity w/o contrast matrl MRI Joint Upper Extremity [facility] Work Phone: Start: 06-01-2017 End: 06-10-2017 Mri joint upr extrem w/o dye MRI Joint Upper Extremity [facility] Work Phone: Start: 12-22-2016 End: 12-22-2016 Radiologic exam knee complete 4/more views X-Ray, Knee [facility] Work Phone: Start: 12-22-2016 End: 12-22-2016 X-ray exam, knee, 4 or more X-Ray, Knee [facility] Work Phone: Start: 12-08-2016 End: 12-08-2016 Physical Therapy General [facility], [address] [place] [address], [phone] [facility] Work Phone: Start: 12-08-2016 End: 12-08-2016 Physical Therapy General [facility], [address] [place] [address], [phone] [facility] Work Phone: Start: 07-15-2016 End: 07-15-2016 Mri any jt upper extremity w/o contrast matrl MRI Joint Upper Extremity [facility] Work Phone: Start: 07-15-2016 End: 07-15-2016 Mri joint upr extrem w/o dye MRI Joint Upper Extremity [facility] Work Phone: Start: 07-02-2015 End: 07-17-2015 Office outpatient visit 25 minutes [id number] Ofc Vst, Est Level IV [facility] Work Phone: Start: 07-02-2015 End: 07-17-2015 Office/outpatient visit, est, level 4 [id number] Ofc Vst, Est Level IV [facility] Work Phone: Start: 03-12-2015 End: 03-12-2015 Mri any jt upper extremity w/o contrast matrl MRI Joint Upper Extremity [facility] Work Phone: Start: 03-12-2015 End: 03-12-2015 Mri joint upr extrem w/o dye MRI Joint Upper Extremity [facility] Work Phone: Start: 10-15-2012 DIABETES SCREEN DIABETES SCREEN [facility] Start: 10-15-2012 Diabetes Screening Diabetes Screenin g [facility] Start: 2008 BONE DENSITY BONE DENSITY [facility] Start: 2008 PNEUMOVAX AGE 65 AND OVER WITH 5YR LOOKBACK (#1) PNEUMOVAX AGE 65 AND OVER WITH 5YR LOOKBACK (#1) [facility] Start: 2008 Screening for osteoporosis Bone Density Screening [facility] Start: 2003 RSV Vaccine (1 - 1-d ose 60+ series) RSV Vaccine (1 - 1-dose 60+ series) [facility] Start: 1993 SHINGRIX VACCINE (1 of 2) SHINGRIX VACCINE (1 of 2) [facility] Start: 1962 SHINGRIX VACCINE (1 of 2) SHINGRIX VACCINE (1 of 2) [facility] Start: 1961 ANNUAL PCP TEAM PRESIDENT [place] MICHOACANO DISEASE VISIT ANNUAL PCP TEAM CHRONIC DISEASE VISIT [facility] Start: 1961 Anxiety Screening Anxiety Screening [facility] Start: 1961 BP CONTROLLED (<130/80) BP CON TROLLED (<130/80) [facility] Start: 1961 Depression Screening Depression Scre ening [facility] Start: 1961 HEPATITIS C SCREENING HEPATITIS C SC CHERYL [facility] Start: 1955 Adult depression screening assessment DEPRESSION SCREENING [facility] Patient Education [facility] Work Phone: Patient referral [facility] Work Phone: End: 07-05-2025 XR Hand - bilateral PA and Lateral and Oblique XR HAND GENERAL 3V PA/LAT/OBL BILATERAL Radiology Routine Pain 1 Occurrences starting 06/05/2024 until 07/05/2025 [facility] Work Phone: Comment on above: 1 Occurrences starti ng 06/05/2024 until 07/05/2025 End: 06-07-2025 XR Hand - left PA and Lateral and Oblique XR HAND GENERAL 3V PA/LAT/OBL LEFT Radiology Routine Degenerative TFCC tear, left 1 Occurrences starting 05/08/2024 until 06/07/2025 [facility] Work Phone: Comment on above: 1 Occurrences starti ng 05/08/2024 until 06/07/2025 XR Knee 3 Views [facility] End: 04-13-2024 XR WRIST INJURY 4V PA/LAT/OBL/SCAPH LEFT XR WRIST INJURY 4V PA/LAT/OBL/SCAPH LEFT Radiology Routine Left wrist pain 1 Occurrences starting 03/15/2023 until 04/13/2024 [facility] Work Phone: Comment on above: 1 Occurrences starti ng 03/15/2023 until 04/13/2024 [facility] Immunizations Immunization Date Immunization Notes Care Provider Lucinda garcia 08-14-2021 influenza virus vaccine, unspecified formulation Florence Finley DO Work Phone: [facility] 08-08-2018 influenza, seasonal, injectable Mri (1.5t) [facility] Work Phone: 08-08-2018 influenza virus vaccine, unspecified formulation Florence Finley DO Work Phone: [facility] 09-01-2017 influenza, seasonal, injectable Mri (1.5t) [facility] Work Phone: 06-02-2017 pneumococcal conjuga te vaccine, 13 valent Mri (1.5t) [facility] Work Phone: 01-21-2015 tetanus toxoid, reduced diphtheria toxoid, and acellular pertussis vaccine, adsorbed Mri (1.5t) [facility] Work Phone: 11-14-2013 influenza, seasonal, injectable Mri (1.5t) [facility] Work Phone: No information available. Sabrina Alexandre LPN [facility] Work Phone: Payers Date Payer Category Payer Medicare [id number] 2023 Self-pay [id number] 2023 Unknown [id number] 2022 Unknown [id number] 2022 Medicare [id number] 2022 Medicare UHC MEDICARE UHC DUAL COMPLETE HMO SNP [id number] 2022-[facility] [phone] [address] [place] [address] Medicare [id number] 2022 Medicare [id number] 2021 Medicaid [id number] 2021 Private Health Insurance SANDER SILVERIO PPO [id number] 2021-[facility] [phone] [facility] [id number] [place] [address] PPO [id number] 2020 Medicaid [id number] 2017 Medicaid [id number] 2008 Medicare [id number] 2008 Medicare [id number] 2005 Private Health Insurance [id number] Unknown [id number] Unknown [id number] 62 Unknown [id number] 62 Unknown [id number] 62 Unknown [id number] 62 Unknown [id number] 62 Social History Date Type Detail Facility Start: 12-11-2020 End: 03-01-2024 Assertion Unknown if ever smoked [facility] Work Phone: Start: 04-07-2018 End: 03-08-2025 Tobacco smoking status NHIS Never smoked tobacco [facility] Start: 01-27-2022 End: 12-23-2022 Alcohol intake Current non-drinker of alcohol (finding) [facility] Start: 1945 Sex Assigned At Not on file C [facility] Start: 01-26-2022 End: 09-23-2022 Exposure to SARS-CoV-2 (event) Not sure [facility] Start: 10-03-2019 None [facility] Start: 10-03-2019 Alone [facility] Start: 04-07-2021 Non-smoker [facility] Start: 1945 Sex Assigned At Female W [facility] Start: 04-07-2018 End: 12-23-2022 Tobacco use and exposure Smokeless tobacco non-user [facility] Work Phone: Start: 12-23-2022 End: 03-16-2023 History of Social function [facility] Start: 12-23-2022 End: 03-16-2023 Tobacco use panel [facility] National Score (1-100), lower number is lower risk 70 [facility] Start: 02-22-2025 End: 03-08-2025 Sex Female (finding) [facility] Medical Equipment Procedure Code Equipment Code Equipment Origin al Text Equipment Identifier Dates System Xen Porci ne Dermis Glaucoma Injector Sterile Latex Free - [id number] Start: 09-10-2021 DOUGH,CEMENT 6191-1-010 FDA Start: 03-07-2018 DOUGH,CEMENT 6191-1-010 FDA Start: 03-07-2018 TRIATHLON CRUC R ET FEM COMP FDA Start: 03-07-2018 TRIATHLON TRITAN TIBIAL COMP FDA Start: 03-07-2018 TRIATHLON X3 PATELLA FDA Star t: 03-07-2018 TRIATHLON X3 TIB IAL INSERT FDA Start: 03-07-2018 DOUGH,CEMENT 6191-1-010 FDA Start: 03-07-2018 DOUGH,CEMENT 6191-1-010 FDA Start: 03-07-2018 TRIATHLON CRUC R ET FEM COMP FDA Start: 03-07-2018 TRIATHLON TRITAN TIBIAL COMP FDA Start: 03-07-2018 TRIATHLON X3 PATELLA FDA Star t: 03-07-2018 TRIATHLON X3 TIB IAL INSERT FDA Start: 03-07-2018 DOUGH,CEMENT 6191-1-010 FDA Start: 03-07-2018 DOUGH,CEMENT 6191-1-010 FDA Start: 03-07-2018 TRIATHLON CRUC R ET FEM COMP FDA Start: 03-07-2018 TRIATHLON TRITAN TIBIAL COMP FDA Start: 03-07-2018 TRIATHLON X3 PATELLA FDA Star t: 03-07-2018 TRIATHLON X3 TIB IAL INSERT FDA Start: 03-07-2018 DOUGH,CEMENT 6191-1-010 FDA Start: 03-07-2018 DOUGH,CEMENT 6191-1-010 FDA Start: 03-07-2018 TRIATHLON CRUC R ET FEM COMP FDA Start: 03-07-2018 TRIATHLON TRITAN TIBIAL COMP FDA Start: 03-07-2018 TRIATHLON X3 PATELLA FDA Star t: 03-07-2018 TRIATHLON X3 TIB IAL INSERT FDA Start: 03-07-2018 DOUGH,CEMENT 6191-1-010 FDA Start: 03-07-2018 DOUGH,CEMENT 6191-1-010 FDA Start: 03-07-2018 TRIATHLON CRUC R ET FEM COMP FDA Start: 03-07-2018 TRIATHLON TRITAN TIBIAL COMP FDA Start: 03-07-2018 TRIATHLON X3 PATELLA FDA Star t: 03-07-2018 TRIATHLON X3 TIB IAL INSERT FDA Start: 03-07-2018 DOUGH,CEMENT 6191-1-010 FDA Start: 03-07-2018 DOUGH,CEMENT 6191-1-010 FDA Start: 03-07-2018 TRIATHLON CRUC R ET FEM COMP FDA Start: 03-07-2018 TRIATHLON TRITAN TIBIAL COMP FDA Start: 03-07-2018 TRIATHLON X3 PATELLA FDA Star t: 03-07-2018 TRIATHLON X3 TIB IAL INSERT FDA Start: 03-07-2018 DOUGH,CEMENT 6191-1-010 FDA Start: 03-07-2018 DOUGH,CEMENT 6191-1-010 FDA Start: 03-07-2018 TRIATHLON CRUC R ET FEM COMP FDA Start: 03-07-2018 TRIATHLON TRITAN TIBIAL COMP FDA Start: 03-07-2018 TRIATHLON X3 PATELLA FDA Star t: 03-07-2018 TRIATHLON X3 TIB IAL INSERT FDA Start: 03-07-2018 DOUGH,CEMENT 6191-1-010 FDA Start: 03-07-2018 DOUGH,CEMENT 6191-1-010 FDA Start: 03-07-2018 TRIATHLON CRUC R ET FEM COMP FDA Start: 03-07-2018 TRIATHLON TRITAN TIBIAL COMP FDA Start: 03-07-2018 TRIATHLON X3 PATELLA FDA Star t: 03-07-2018 TRIATHLON X3 TIB IAL INSERT FDA Start: 03-07-2018 DOUGH,CEMENT 6191-1-010 FDA Start: 03-07-2018 DOUGH,CEMENT 6191-1-010 FDA Start: 03-07-2018 TRIATHLON CRUC R ET FEM COMP FDA Start: 03-07-2018 TRIATHLON TRITAN TIBIAL COMP FDA Start: 03-07-2018 TRIATHLON X3 PATELLA FDA Star t: 03-07-2018 TRIATHLON X3 TIB IAL INSERT FDA Start: 03-07-2018 DOUGH,CEMENT 6191-1-010 FDA Start: 03-07-2018 DOUGH,CEMENT 6191-1-010 FDA Start: 03-07-2018 TRIATHLON CRUC R ET FEM COMP FDA Start: 03-07-2018 TRIATHLON TRITAN TIBIAL COMP FDA Start: 03-07-2018 TRIATHLON X3 PATELLA FDA Star t: 03-07-2018 TRIATHLON X3 TIB IAL INSERT FDA Start: 03-07-2018 DOUGH,CEMENT 6191-1-010 FDA Start: 03-07-2018 DOUGH,CEMENT 6191-1-010 FDA Start: 03-07-2018 TRIATHLON CRUC R ET FEM COMP FDA Start: 03-07-2018 TRIATHLON TRITAN TIBIAL COMP FDA Start: 03-07-2018 TRIATHLON X3 PATELLA FDA Star t: 03-07-2018 TRIATHLON X3 TIB IAL INSERT FDA Start: 03-07-2018 DOUGH,CEMENT 6191-1-010 FDA Start: 03-07-2018 DOUGH,CEMENT 6191-1-010 FDA Start: 03-07-2018 TRIATHLON CRUC R ET FEM COMP FDA Start: 03-07-2018 TRIATHLON TRITAN TIBIAL COMP FDA Start: 03-07-2018 TRIATHLON X3 PATELLA FDA Star t: 03-07-2018 TRIATHLON X3 TIB IAL INSERT FDA Start: 03-07-2018 DOUGH,CEMENT 6191-1-010 FDA Start: 03-07-2018 DOUGH,CEMENT 6191-1-010 FDA Start: 03-07-2018 TRIATHLON CRUC R ET FEM COMP FDA Start: 03-07-2018 TRIATHLON TRITAN TIBIAL COMP FDA Start: 03-07-2018 TRIATHLON X3 PATELLA FDA Star t: 03-07-2018 TRIATHLON X3 TIB IAL INSERT FDA Start: 03-07-2018 DOUGH,CEMENT 6191-1-010 FDA Start: 03-07-2018 DOUGH,CEMENT 6191-1-010 FDA Start: 03-07-2018 TRIATHLON CRUC R ET FEM COMP FDA Start: 03-07-2018 TRIATHLON TRITAN TIBIAL COMP FDA Start: 03-07-2018 TRIATHLON X3 PATELLA FDA Star t: 03-07-2018 TRIATHLON X3 TIB IAL INSERT FDA Start: 03-07-2018 DOUGH,CEMENT 6191-1-010 FDA Start: 03-07-2018 DOUGH,CEMENT 6191-1-010 FDA Start: 03-07-2018 TRIATHLON CRUC R ET FEM COMP FDA Start: 03-07-2018 TRIATHLON TRITAN TIBIAL COMP FDA Start: 03-07-2018 TRIATHLON X3 PATELLA FDA Star t: 03-07-2018 TRIATHLON X3 TIB IAL INSERT FDA Start: 03-07-2018 Mental Status Date Assessment Result Facility 03-08-2025 Cognitive function Level Of Cons ciousness Awake;Alert;Appropriate [facility] Work Phone: 10-25-2022 Cognitive function Level Of Cons ciousness Awake;Alert;Appropriate;Follow s Commands [facility] Work Phone: Clinical Notes 05-25-2021 to 03-08-2025 Note Date & Type Note Facility 03-08-2025 Discharge summary [facility] 03-08-2025 Radiology Diagnostic study note [facility] Imaging Services [address] [place], [place] [address] Soft Tissue Neck W/WO Contrast MR#: [id number] Acct: [id number] Name: SHARON REED Rep #: [id number] : 1945 F 79 From: Malick Yeager MD PCP: Dr. Susan Yañez MD Status: [facility] Study:Soft Tissue Neck W/WO Contrast Date of Exam: 03/08/25 Exam# [id number] Ordering Dr: Drew Liz MD PROCEDURE: SOFT TISSUE NECK W/WO CONTRAST 03/08/2025 REASON FOR EXAM: LEFT PAROTID SWELLING TECHNIQUE: CT of the soft tissues of the neck from the orbits to the upper mediastinum withintravenous contrast. One or more dose reduction techniques were used (e.g., Automated exposure control, adjustment of the mA and/or kV according to patient size, use of iterative reconstruction technique). FINDINGS: Airway: Midline and patent. Salivary glands: Enlargement of the left parotid gland with some ill-defined margins suggestive of parotitis. No loculated fluid collection to suggest abscess. Lymph nodes: No cervical lymphadenopathy. Thyroid: Unremarkable. Vasculature: Carotid arteries and internal jugular veins are unremarkable. Orbits: Unremarkable at visualized levels. Paranasal sinuses and mastoids: Grossly clear at visualized levels. Lung apices: Clear. Upper mediastinum: Visualized mediastinum is unremarkable. Bones: Unremarkable. Other: CT/Soft Tissue Neck W/WO Contrast IMPRESSION: Suspect left parotitis. No abscess. Reading Location: [id number] CC: Dr. Drew Liz MD; Dr. Susan Yañez MD ~ Application Operations Engineer: Signed [facility] 03-08-2025 Discharge summary Note Date/Time March 08, 2025 7:13pm [facility] Medical Records Department [address] [place] [address] Emergency Department Summary 03/08/25 MR#: [id number] Acct: [id number] Name: SHARON REED Rep #:[id number] : 1945 79 From: Drew Liz MD PCP: Dr. Susan Yañez MD Status:[facility] Location: ED HPI History of Present Illness Chief Complaint: Edema Narrative Narrative: 79-year-old female past medical history of hypertension hypercholesterolemia presents with a left facial swelling that began today. She states yesterday everything was fine. She attends an adult day center, where they asked her whatwas wrong with her left cheek. They noticed it was more swollen. She states that it felt a little achy this morning, but has progressively gotten worse throughout the day. She denies any fevers or chills. No dry mouth. No exacerbating or alleviating factors. No difficulty swallowing or breathing. She states is not her neck that swollen it is more right in front of her ear andin her left cheek. [facility] Medical History High cholesterol Hypertension Home Medications ?Medication ?Instructions ?Recorded ?Last Taken ?Type verapamil 360 mg 24 hr 360 mg PO DAILY bp 07/16/16 10/31/20 History capsule,extended release atorvastatin 20 mg tablet 20 mg PO QHS 07/11/18 Unknow n History albuterol sulfate 90 mcg/actuation 2 puff inhalation Q 4H PRN PRN 10/03/19 Unknown Rx aerosol inhaler Wheezing ##1 amoxicillin 875 mg-potassium 1 tab PO BID #14 tabs Unknown Rx clavulanate 125 mg tablet Allergy/AdvReac Type Severity Reaction Status Date / Time codeine AdvReac Nausea Verified 03/08/25 16:38 latex AdvReac Rash Verified 03/08/25 16:38 tramadol (From Ultram) AdvReac Itching Verified 03/08/25 16:38 Surgical History h/o right hand surgery H/O left knee replacement h/o left shoulder arthroscopy H/O arthroscopy of left knee Social History Smoking Status: Never smoker ROS ROS ED ROS Narrative Review of systems positive for left cheek swelling with mild amount of pain. Nofevers or chills. No redness to the area. No nausea or vomiting. No difficulty swallowing or breathing. EXAM Physical Exam Narrative Exam Narrative: Afebrile. Vital signs noted. Nontoxic-appearing. Cardiovascular examination reveals a regular rate and rhythm. Lungs are clear to auscultation bilaterally. Abdomen soft and nontender without guarding or rebound. Positive bowel sounds. Neurological examination nonfocal, nonlateralizing. HEENT examination reveals mild swelling in the left parotid gland area without noted erythema or fluctuance. She is edentulous in the left lower jaw. Neck is soft and supple without meningismus. No stridor. No William angina or angioedema of mouth. Airway patent. No drooling or trismus. Const Vital Signs: 03/08/25 16:35 03/08/25 17:17 03/08/25 18:22 Temperature 98.6 F Temperature Source Oral Pulse Rate 89 75 Respiratory Rate 16 14 Respiratory Effort Normal Respiratory Pattern Normal Blood Pressure 172/102 H 142/68 H Blood Pressure Mean 125 92 Pulse Ox 99 97 Oxygen Delivery Method Room Air Room Air MDM MDM MDM Narrative Medical decision making narrative: The differential diagnosis includes but not limited to infectious parotitis versus parotid gland abscess versus parotid gland stone. I will obtain basic laboratory work and CT imaging. In discussion with the library cataloging technician, itis preferred that she have CT of the soft tissue neck with and without contrast. I reviewed her laboratory work and she has normal white count of 5.9 with hemoglobin 12.2, hematocrit 37.2, platelet count normal at 244. Electrolyte panel shows BUN of 17 with creatinine 1.86. Glucose slightly elevated at 121. I reviewed the radiology report of the CT scans and she has an acute parotitis but no evidence of abscess or stone. She was given her first dose of Augmentin here in the emergency department and prescription written for the next week. This was after discussion with Dr. Cummings with otolaryngology. She will drink plenty of oral fluids and continuesialagogues such as lemon heads or other sour candies. Return instructions to the emergency department were reviewed. Disposition is discharged home in stable condition. History & Record Review Discussion w/independent historian: Patient and Family Lab Data Attestation: I reviewed the patient's lab results. Labs: Laboratory Results - last 24 hr 03/08/25 17:03 WBC 5.9 RBC 4.01 L Hgb 12.2 Hct 37.2 MCV 92.8 MCH 30.4 MCHC 32.8 RDW Std Deviation 47.2 H RDW Coeff of Quique 13.7 Plt Count 244 MPV 9.1 Immature Gran % (Auto) 0.200 Neut % (Auto) 41.7 L Lymph % (Auto) 49.5 H Leslie % (Auto) 7.2 Eos % (Auto) 0.9 Baso % (Auto) 0.5 Absolute Neuts (auto) 2.5 Absolute Lymphs (auto) 2.90 Nucleated RBC % 0 Sodium 140 Potassium 4.1 Chloride 104 Carbon Dioxide 25.0 Anion Gap 11 BUN 17 Creatinine 1.86 H Estim Creat Clear Calc 24.91 L Est GFR (MDRD) Non-Af 27 L BUN/Creatinine Ratio 8.9 L Glucose 121 H Calcium 9.2 Radiography Diagnostic Testing: Clinical Impression(s) from Imaging Studies Soft Tissue Neck CT 03/08/25 16:56 IMPRESSION: Suspect left parotitis. No abscess. Reading Location: [facility] Discharge Plan Triage Chief Complaint: Edema ED Provider: Drew Liz Dx/Rx/DC Orders Clinical Impression: Parotid gland enlargement, Acute parotitis Instructions: ED Salivary Gland Infection Prescriptions: New amoxicillin-pot clavulanate 875-125 mg tablet 1 tab PO BID Qty: 14 0RF No Action verapamil 360 MG capsule,ext rel. pellets 24 hr 360 mg PO DAILY Patient Comments: BP atorvastatin 20 MG tablet 20 mg PO QHS albuterol sulfate 1 INHALER inhaler 2 puff INHALATION Q4H PRN PRN (Reason: Wheezing) Qty: 1 0RF Primary Care Provider: Susan Yañez Referrals: Ji Cummings MD [Med Staff - Active Staff] - 5-7 Days Susan Yañez MD [Primary Care Provider] - Activity Restrictions/Additional Instructions: Antibiotics as directed. Bring plenty of oral fluids and use sialagogues/sour candies to produce more saliva. Follow-up with ENT in 5 to 7 days. Return to the emergency department with fever, increased swelling or redness to your left cheek, new or worsening symptoms. Print Language: Maori Disposition Disposition: Home, Self Care What to do if you have Problems For any increased pain, shortness of breath, bleeding, nausea or vomiting, chestpain, or any unexpected problems, contact your Primary Care Provider. Call [facility] ([phone]) or report to the closest Emergency Room. Call 911 if necessary. 03/08/251912 <Electronically signed by Drew Liz MD> Cosigner Signature (if applicable): CC: Dr. Susan Yañez MD ~ Signed [facility] Work Phone: 1(690) 476-185304-25-2025 Hospital Discharge instructions Additional Instructions Antibiotics as directed. Bring plenty of oral fluids and use sialagogues/sour candies to produce more saliva. Follow-up with ENT in 5 to 7 days. Return to the emergency department with fever, increased swelling or redness to your left cheek, new or worsening symptoms. [facility] Work Phone: [phone]) 162-784406-28-2024 NoteHNO ID: [id number] Author: FLORENCE FINLEY, DO Service: ? Author Type: Physician Type: Progress Notes Filed: 05/12/2024 08:51 Note Text: Follow Up Visit Chief Complaint Sharon Reed is a 78 year old female who presents today for follow up office visit. Patient presents with: Right Hand - Follow Up, Pain History of Present Illness PAIN EVALUATION 05/11/2024 1118 Pain Level: 10 Pain Location: Hand-Right Description: Sharp;Stabbing;Throbbing Duration Amount of Time: -- ongoing Frequency: Intermittent HPI: Sharon Reed is a 78 year old female for a follow up visit right hand pain. Patient states pain is mostly in the pinky/medial side of the hand, in anatomical position. Patient mentions that she had surgery on her hand many years ago but cannot recall what kind of surgery it was. She denies numbness and tingling. Pain history is noted as above. Is [...] of consciousness. Current Outpatient Medications Medication Sig azbx-JV-jou-ocj-CJU-SBFK-be-mv 1.5 mg iron- 8.73 mg CpID Take by mouth once daily. atorvastatin (LIPITOR) 20 mg tablet daily at bedtime. cyclobenzaprine (FLEXERIL) 5 mg tablet Take 5 mg by mouth three times daily as needed. Verapamil HCl 360 mg 24 hr capsule VERAPAMIL HCL ER 360 MG [id number] VITAMIN D-3 50 mcg (2,000 unit) cap Take 1 capsule by mouth once daily. brimonidine (ALPHAGAN) 0.2 % ophthalmic solution Use 1 Drop in the left eye every 12 hours. (Patient not taking: Reported on 03/16/2023) latanoprost (XALATAN) 0.005 % ophthalmic solution Use 1 Drop in the left eye once daily. Instill 1 drop in each eye at bedtime. pantoprazole DR (PROTONIX) 40 mg tablet TAKE 1 TABLET BY MOUTH 30-45 MINUTES BEFORE BREAKFAST meloxicam (MOBIC) 7.5 mg tablet Take 1 tablet by mouth once daily. Take this directly following a meal (Patient not taking: Reported on 03/16/2023) RESTASIS 0.05 % ophthalmic emulsion INSTILL 1 DROP INTO EACH EYE TWICE DAILY DIRECTED No current facility-administered medications for this visit. [...] of breath at rest Rheumatologic: Joint deformities: right hand pain Right Hand Exam Tenderness Right hand tenderness location: fifth dip / pip joint. Range of Motion The patient has normal right wrist ROM. Wrist Extension: normal Flexion: normal Pronation: normal Supination: normal Muscle Strength The patient has normal right wrist strength. Tests Phalen?s Sign: negative Tinel's sign (median nerve): negative Mian's test: negative Other Erythema: absent Sensation: normal Pulse: present Comments: B/l med/uln/rad/ax nerves intact Stiffness/oa of right fifth ray dip/pip Left Hand Exam Left hand exam is normal. Tenderness The patient is experiencing no tenderness. Range of Motion The patient has normal left wrist ROM. Wrist Extension: normal Flexion: normal Pronation: normal Supination: normal Muscle Strength The patient has normal left wrist strength. Tests Phalen?s Sign: negative Tinel's sign (median nerve): negative Mian's test: negative Other Erythema: absent Sensation: normal Pulse: present Assessment and Plan Radiographs: I have independently reviewed films and my findings are the same. and I have reviewed the images with the patient and family. Last XR Hand/Finger - Impression Only XR HAND GENERAL 3V PA/LAT/OBL RIGHT Exam End: 05/11/2024 11:34 AM (In process) Oa right hand Impression: Encounter Diagnosis ICD-10-CM 1. Trigger ring finger of right hand M65.341 CONSULT TO TRAINING GENERALIST 2. 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 Follow Up Visit Chief Complaint Sharon Reed is a 78 year old female who presents today for follow up office visit. Patient presents with: Right Hand - Follow Up, Pain History of Present Illness PAIN EVALUATION 05/11/2024 1118 Pain Level: 10 Pain Location: Hand-Right Description: Sharp;Stabbing;Throbbing Duration Amount of Time: -- ongoing Frequency: Intermittent HPI: Sharon Reed is a 78 year old female for a follow up visit right hand pain. Patient states pain is mostly in the pinky/medial side of the hand, in anatomical position. Patient mentions that she had surgery on her hand many years ago but cannot recall what kind of surgery it was. She denies numbness and tingling. Pain history is noted as above. Is [...] intolerance, new onset joint pain or swelling, newonset extremity weakness or numbness, new onset auditory or visual disturbances, lightheadedness, dizziness, partial loss of consciousness or full loss of consciousness. Current Outpatient Medications Medication Sig sqtk-KI-wux-sdp-EAW-YJOO-be-mv 1.5 mg iron- 8.73 mg CpID Take by mouth once daily. atorvastatin (LIPITOR) 20 mg tablet daily at bedtime. cyclobenzaprine (FLEXERIL) 5 mg tablet Take 5 mg by mouth three times daily as needed. Verapamil HCl 360 mg 24 hr capsule VERAPAMIL HCL ER 360 MG [id number] VITAMIN D-3 50 mcg (2,000 unit) cap Take 1 capsule by mouth once daily. brimonidine (ALPHAGAN) 0.2 % ophthalmic solution Use 1 Drop in the left eye every 12 hours. (Patient not taking: Reported on 03/16/2023) latanoprost (XALATAN) 0.005 % ophthalmic solution Use 1 Drop in the left eye once daily. Instill 1 drop in each eye at bedtime. pantoprazole DR (PROTONIX) 40 mg tablet TAKE 1 TABLET BY MOUTH 30-45 MINUTES BEFORE BREAKFAST meloxicam (MOBIC) 7.5 mg tablet Take 1 tablet by mouth once daily. Take this directly following a meal (Patient not taking: Reported on 03/16/2023) RESTASIS 0.05 % ophthalmic emulsion INSTILL 1 DROP INTO EACH EYE TWICE DAILY DIRECTED No current facility-administered medications for this visit. [...] of breath at rest Rheumatologic: Joint deformities: right hand pain Right Hand Exam Tenderness Right hand tenderness location: fifth dip / pip joint. Range of Motion The patient has normal right wrist ROM. Wrist Extension: normal Flexion: normal Pronation: normal Supination: normal Muscle Strength The patient has normal right wrist strength. Tests Phalen s Sign: negative Tinel's sign (median nerve): negative Mian's test: negative Other Erythema: absent Sensation: normal Pulse: present Comments: B/l med/uln/rad/ax nerves intact Stiffness/oa of right fifth ray dip/pip Left Hand Exam Left hand exam is normal. Tenderness The patient is experiencing no tenderness. Range of Motion The patient has normal left wrist ROM. Wrist Extension: normal Flexion: normal Pronation: normal Supination: normal Muscle Strength The patient has normal left wrist strength. Tests Phalen s Sign: negative Tinel's sign (median nerve): negative Mian's test: negative Other Erythema: absent Sensation: normal Pulse: present Assessment and Plan Radiographs: I have independently reviewed films and my findings are the same. and I have reviewed the images with the patient and family. Last XR Hand/Finger - Impression Only XR HAND GENERAL 3V PA/LAT/OBL RIGHT Exam End: 05/11/2024 11:34 AM (In process) Oa right hand Impression: Encounter Diagnosis ICD-10-CM 1. Trigger ring finger of right hand M65.341 CONSULT TO TRAINING GENERALIST 2. 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 We discussed strategies for decreasing pain and improving strength, stability and motion. Patient's questions were answered in detailed. Patient verbalizes understanding and agrees with the treatment plan as discussed. Consult OT, Stiffness of right hand Deferred injection today Use hand as much as tolerated Patient aware and in agreement of plan. All questions answered. Florence SanchezP.HBarrett documented in this encounterUniversity Hospitals Lake [facility]06-28-2024 History of Present illness Narrative* Janusz Kendall Tech - 05/11/2024 10:50 AM EDT Radiology Service Progress Note PATIENT NAME: Sharon Reed DATE OF SERVICE: May 11, 2024 TIME: 11:34 AM PATIENT IDENTITY VERIFICATION COMPLETED USING TWO (2) IDENTIFIERS: Name and Date of confirmedby patient verbally. FALL SCREENING: Has the patient had 2 falls in the last year or 1 fall with injury or currently using an Ambulatory Assistive Device (Walker, Cane, Wheelchair, Crutches, etc.)? No PATIENT GENDER DATA: Female. status: : No status: NO. PATIENT RELEVANT IMPLANT DATA REVIEWED: Not Applicable PATIENT PRESENTS WITH AN IMPLANTABLE OR ATTACHED JAVA SOFTWARE ENGINEER: No RADIOLOGY DEPARTMENT: General X-ray: Exam(s) Completed: Upper Extremity X- Ray(s): Hand, right PERIPHERAL IV DATA: Not applicable SIGNED BY: Rachel Barrera May 11, 2024 11:34 AM documented in this encounterUniversity Hospitals Lake West [facility] Center06-28-2024 NoteHNO ID: [id number] Author: JANUSZ KENDALL Tech Service: ? Author Type: Wafer Mounter Type: Progress Notes Filed: 05/11/2024 11:34 Note Text: Radiology Service Progress Note PATIENT NAME: Sharon Reed DATE OF SERVICE: May 11, 2024 TIME: 11:34 AM PATIENT IDENTITY VERIFICATION COMPLETED USING TWO (2) IDENTIFIERS: Name and Date of confirmed by patient verbally. FALL SCREENING: Has the patient had 2 falls in the last year or 1 fall with injury or currently using an Ambulatory Assistive Device (Walker, Cane, Wheelchair, Crutches, etc.)? No PATIENT GENDER DATA: Female. status: : No status: NO. PATIENT RELEVANT IMPLANT DATA REVIEWED: Not Applicable PATIENT PRESENTS WITH AN IMPLANTABLE OR ATTACHED JAVA SOFTWARE ENGINEER: No RADIOLOGY DEPARTMENT: General X-ray: Exam(s) Completed: Upper Extremity X-Ray(s): Hand, right PERIPHERAL IV DATA: Not applicable SIGNED BY: Rachel Barrera May 11, 2024 11:34 AMMercy Health Allen [id number] Instructions* Patient Instructions* Sudeep Carlton MD, PhD - 03/16/2023 10:00 AM EDT WristWidget brace documented in this encounterUniversity Hospitals Lake [facility] Center05-03-2023 History of Present illness Narrative* Sudeep Carlton MD, PhD - 03/16/2023 9:15 AM EDT March 16, 2023 CHIEF COMPLAINT: Left wrist [...] her so she would like to avoid thoseagain. Will schedule follow up PRN, we discussed options of further injections and also arthroscopic waferresection of distal ulna but she is not [...] ulnar deviation. Snapping ECU but without pain. Nosignificant DRUJ instability. ECU synergy test painful. Negative Tinel's and Gela's at the carpaltunnel. Sensation: SILT median (tip 2nd), ulnar (tip [...] Take 1 capsule by mouth once daily. qsvl-FK-imw-vqb-MDA-CIPX-be-mv 1.5 mg iron- 8.73 mg CpID Take [...] hr capsule VERAPAMIL HCL ER 360 MG [id number] brimonidine (ALPHAGAN) 0.2 % ophthalmic solution Use [...] and note, and have made changes above asneeded so that I agree with the documentation. I discussed the plan with the patient. Magen Carlton MD, PhD Hand & Upper Extremity Orthopaedic Staff Surgeon documented in this encounterUniversity Hospitals Lake West Medical Center05-03-2023 History of Present illness Narrative* Gillian Goel RT(R) - 03/16/2023 8:30 AM EDT Radiology Service Progress Note PATIENT NAME: Sharon Reed DATE OF SERVICE: March 16, 2023 TIME: 8:56 AM PATIENT IDENTITY VERIFICATION COMPLETED USING TWO (2) IDENTIFIERS: Name and Date of confirmedby patient verbally. FALL SCREENING: Has the patient had 2 falls in the last year or 1 fall with injury or currently using an Ambulatory Assistive Device (Walker, Cane, Wheelchair, Crutches, etc.)? No PATIENT GENDER DATA: Female. status: : No status: NO. PATIENT RELEVANT IMPLANT DATA REVIEWED: Not Applicable RADIOLOGY DEPARTMENT: General X-ray: Exam(s) Completed: Upper Extremity X- Ray(s): Wrist, left PERIPHERAL IV DATA: Not applicable SIGNED BY: CARLITO Noonan) March 16, 2023 8:56 AM documented in this encounterUniversity Hospitals Lake [facility] Medical Center01-18-2023 Miscellaneous Notes* Telephone Encounter - Luann Herr - 12/01/2022 1:39 PM EST Patient wanted to schedule a follow up with . * Telephone Encounter - Desirae Cedeno - 12/01/2022 1:00 PM EST Patient called in and left a voicemail message asking to schedule an appointment with Dr. Yousif. She also mentioned she wanted to see him in [place] which he does not go there. Please give her a call and offer her an appointment in [place]. Dr. Gutierrez and Sandrine and Dr. Finley all see patient's in [place] I am not sure if she would be interested in seeing any one of those providers. She can be reached at [phone]. Desirae [facility] documented in this encounterUniversity Hospitals Lake West Medical Center11-10-2022 History of Present illness Narrative* Florence Finley, - 09/23/2022 11:48 AM EST Images from the original note were not [...] intolerance, new onset joint pain or swelling, newonset extremity weakness or numbness, new onset auditory or visual disturbances, lightheadedness, dizziness, partial loss of consciousness or full loss of consciousness. Current Outpatient Medications Medication Sig VITAMIN D-3 50 mcg (2,000 unit) cap Take 1 capsule by mouth once daily. cufq-ZL-lnu-rve-GOA-KAOY-be-mv 1.5 mg iron- 8.73 mg CpID Take [...] hr capsule VERAPAMIL HCL ER 360 MG [id number] No current facility-administered medications for this visit. [...] Impression: IMPRESSION: Possible calcific rotator cuff tendinosis. Application Operations Engineer: JEMMA Transcribe Date/Time: Jul 28 2022 3:49P [...] tingle further issues arise Staff message sent [employer] disclaimer comment: Please note this report has been produced using speech recognition software and may contain errors related to that system including errors in grammar, punctuation, and spelling, as well as words and phrases that may be inappropriate. If there are any questions or concernsplease feel free to contact the dictating provider for clarification. I spent 30 minutes in the visit, with more than 50% of the total wxgf-mv-icyf time of the visit in counseling / coordination of care. documented in this encounterUniversity Hospitals Lake West Medical Center10-17-2022 Miscellaneous Notes* Telephone Encounter - Leonila Dale - 08/30/2022 4:51 PM EDT Thomas Mcdowell MD 12:47 PM Note She has returned to [facility] and should request he refill her eye medications. documented in this encounterUniversity Hospitals Lake West Medical Center09-14-2022 History of Present illness Narrative* Florence Finley DO - 07/28/2022 11:29 AM EDTAssociated Order(s): Large Joint Arthro/Inj: L subacromial bursa [...] intolerance, new onset joint pain or swelling, newonset extremity weakness or numbness, new onset auditory or visual disturbances, lightheadedness, dizziness, partial loss of consciousness or full loss of consciousness. Current Outpatient Medications Medication Sig VITAMIN D-3 50 mcg (2,000 unit) cap Take 1 capsule by mouth once daily. wdfs-FQ-gzz-enl-KWK-YJVC-be-mv 1.5 mg iron- 8.73 mg CpID Take [...] hr capsule VERAPAMIL HCL ER 360 MG [id number] No current facility-administered medications for this visit. [...] Impression: IMPRESSION: Possible calcific rotator cuff tendinosis. Application Operations Engineer: JEMMA Transcribe Date/Time: Jul 28 2022 3:49P [...] subacromial bursa Informed Consent Consent Obtained: Verbal [place] Protocol A moment to CARE was completed. [...] Visit completed when applicable documented in this encounterUniversity Hospitals Lake West Medical Center09-14-2022 History of Present illness Narrative* GRECIA Mckenzie - 07/28/2022 11:00 AM EDT Radiology Service Progress Note PATIENT NAME: Sharon Reed DATE OF SERVICE: July 28, 2022 TIME: 1:48 PM PATIENT IDENTITY VERIFICATION COMPLETED USING TWO (2) IDENTIFIERS: Name and Date of confirmedby patient verbally. FALL SCREENING: Has the patient had 2 falls in the last year or 1 fall with injury or currently using an Ambulatory Assistive Device (Walker, Cane, Wheelchair, Crutches, etc.)? Yes, Patient High Riskfor Falls What interventions were put in place to prevent falls during this visit? Offered Assistance with Transfers/Clothing and Increased Observations by Caregivers PATIENT GENDER DATA: Female. status: : No status: NO. PATIENT RELEVANT IMPLANT DATA REVIEWED: Not Applicable RADIOLOGY DEPARTMENT: General X-ray: Exam(s) Completed: Upper Extremity X- Ray(s): Shoulder, AP / TRUE AP / AXILLARY / SUPRA OUTLET left PERIPHERAL IV DATA: Not applicable SIGNED BY: GRECIA Mckenzie July 28, 2022 1:48 PM documented in this encounterUniversity Hospitals Lake West Medical Center09-08-2022 History of Present illness Narrative* Arianne Moise OT/L - 07/22/2022 11:25 AM EDT Episode Visit Count: 4 Therapist That Will [...] Date: 11/12/21 to 07/22/2022 and treatment included: Self-mcc management and Prefabricated orthosis fitting. She is scheduled to see MD next week Patient will report a good understanding of diagnosis and OT recommendations for progression of program.MET Patient will demonstrate independence with ongoing home recommendations/exercise program throughouttherapy plan of care.MET SUBJECTIVE: left hand pain, [...] Wrist AROM: Left Limitation Hand Strength L Punch Machine Operator Position 2 (lbs): 38 lbs UE AROM L Forearm Supination: 90 Degrees L Forearm Pronation: 90 Degrees L Wrist Extension: 45 Degrees L Wrist Flexion: 45 Degrees L Wrist Radial Deviation: 20 Degrees L Wrist Ulnar Deviation: 15 Degrees TREATMENT: Self-Halfway Management: 1: objective measurements taken and recorded [...] Billing Self-Care/Home Management Treatment Minutes: 20 Arianne Moise OT/Maricarmen documented in this encounterUniversity Hospitals Lake West Medical Center07-28-2022 History of Present illness Narrative* Rory Gutierrez MD - 06/10/2022 10:01 AM EDT Patient presents with: Left Knee - New, Pain Rory Gutierrez MD Department of Orthopaedics Orthopaedics [address] [facility] [address] Dept: [phone] Dept June 10, 2022 CHIEF COMPLAINT: New and Pain of the Left Knee HPI Patient is still having some troubles not only with the left knee but what she describes at times is the extent of the left leg from the ankle to the hip. She has had injections in the past with Dr. Toth in [place] which she states did help temporarily. She had a full work-up for her left kneeincluding infection work-up. ASSESSMENT: M79.605 Left leg pain [...] Take 1 capsule by mouth once daily. zqni-TI-mwv-rvz-CBI-LUQA-be-mv 1.5 mg iron- 8.73 mg CpID Take [...] hr capsule VERAPAMIL HCL ER 360 MG [id number] No current facility-administered medications for this visit. Allergies: Codeine, Adhesive Tape-Silicones, Latex, and Tramadol ROS: General (negative for fatigue, malaise, weight loss/gain) HEENT (negative for headache, earache, recent vision changes, sinus pain, sore throat) Respiratory (no recent shortness of breath, hemoptysis) CV (negative for chest tightness, palpitations) Musculoskeletal (see HPI) Psych (no depression, anxiety) Rory Gutierrez MD documented in this encounterUniversity Hospitals Lake West Medical Center07-27-2022 History of Present illness Narrative* Florence Finley, DO - 06/09/2022 1:02 PM EDT Images from the original note were not included. Follow Up Visit Chief Complaint Sharon Reed is a 76 year old female who presents today for follow up office visit. Patient presents with: Left Wrist - Follow Up, Pain History of Present Illness PAIN EVALUATION 06/09/2022 1300 Pain Level: 3 Pain Location: Wrist-Left Description: Aching;Dull;Sore;Throbbing;Shooting;Sharp Duration Amount of Time: ongoing Frequency: Continuous Intervention/Comfort measure: Reposition;Relaxation;Splinting;Cold;Medication;Other: See comment cortisone injection HPI: Sharon Reed [...] shoulder down to her hand and feels achy- has had MRI of cervical spine in [...] intolerance, new onset joint pain or swelling, newonset extremity weakness or numbness, new onset auditory or visual disturbances, lightheadedness, dizziness, partial loss of consciousness or full loss of consciousness. Current Outpatient Medications Medication Sig VITAMIN D-3 50 mcg (2,000 unit) cap Take 1 capsule by mouth once daily. dzsb-NC-wie-brf-XTP-RGXM-be-mv 1.5 mg iron- 8.73 mg CpID Take [...] hr capsule VERAPAMIL HCL ER 360 MG [id number] No current facility-administered medications for this visit. 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 Scapholunate ligament injury with no instability, left, initial encounter S69.92XA CONSULT TO TRAINING GENERALIST 3. Injury of triangular fibrocartilage complex (TFCC) of left wrist, initial encounter S69.82XA CONSULT TO TRAINING GENERALIST 4. Tendinitis of extensor tendon of hand M77.8 CONSULT TO TRAINING GENERALIST Today, in detail, through a thorough evaluation, [...] plan. All questions answered. documented in this encounterUniversity Hospitals Lake West Medical Center07-21-2022 History of Present illness Narrative* Aftab Ahmadi PA-C - 06/03/2022 12:00 PM EDT Images from the original note were not included. Aftab Ahmadi PA-C [facility] [address] [address] 06/03/2022 ASSESSMENT AND PLAN: Assessment : Encounter [...] She does quite well and is able tomove around fairly smoothly and quickly with the [...] today with this patient visit. This includes rqfn-mu-[id number] time, review of chart records regarding conservative care history, spine- pertinent imaging, and communication/care coordination with referring provider, problem-specific history-taking and counseling/education regarding treatment options. cc: Aftab Ahmadi [address] [phone] Results of consultation to be transmitted via electronic medical record for those providers who practice within [facility] [place] or with access to [employer] via MD Connect, or via letter. ######################################################################## CHIEF COMPLAINT: Central LBP HPI: see Discussion [...] Take 1 capsule by mouth once daily. luwy-LW-myh-uif-KMX-VPIF-be-mv 1.5 mg iron- 8.73 mg CpID Take [...] hr capsule VERAPAMIL HCL ER 360 MG [id number] No current facility-administered medications for this visit. [...] Heart Son Heart Son Glaucoma Maternal Grandmother ################################################################################ ################################################# PHYSICAL EXAM: Blood pressure 172/71, pulse 72, [...] patient's motivation for treatment was judged based ontoday's encounter to be fair. SPINE: Lumbar Lordosis: [...] STUDIES: See discussion above documented in this encounterUniversity Hospitals Lake West Medical Center07-19-2022 Miscellaneous Notes* Telephone Encounter - Tiki Mejia Ma - 06/01/2022 3:31 PM EDT Called and spoke with daughter. Patient has appointment on 06/10 for left knee pain. Patient has a history of TKA and recently saw Dr. Yousif and Nikolay Madrigal. Last office visit with Nikolay patient was instructed to follow up 03/09/22 and not sure why she is scheduled to see Dr. Gutierrez. Daughter will have her mother call the office when she is back in town. documented in this encounterUniversity Hospitals Lake West Medical Center07-06-2022 History of Present illness Narrative* Florence Aguiarjoseromeo, DO - 05/19/2022 1:24 PM EDT Associated Order(s): Additional Injections Post-Procedure Diagnose(s): Degenerative TFCC tear, left; Scapholunate ligament injury with no instability, left, initial encounter Images from the original note were not included. Additional Injections for Hand and Wrist Tendinopathy Informed Consent Consent Obtained: Verbal [place] Protocol A moment to CARE was completed. [...] of Time: ongoing Frequency: Continuous Intervention/Comfort measure: Reposition;Relaxation;Medication;Other: See comment cortisone injection HPI: Sharon Reed [...] intolerance, new onset joint pain or swelling, newonset extremity weakness or numbness, new onset auditory or visual disturbances, lightheadedness, dizziness, partial loss of consciousness or full loss of consciousness. Current Outpatient Medications Medication Sig methylPREDNISolone (MEDROL) 4 mg Take by mouth. VITAMIN D-3 50 mcg (2,000 unit) cap Take 1 capsule by mouth once daily. drhi-IJ-shj-ual-RFS-RMOL-be-mv 1.5 mg iron- 8.73 mg CpID Take [...] hr capsule VERAPAMIL HCL ER 360 MG [id number] No current facility-administered medications for this visit. [...] MRI Wrist - Impression Only [facility] Exam End: 03/04/2022 10:34 AM (Final result) [...] tear today Discussed seeing documented in this encounterUniversity Hospitals Lake West Medical Center07-05-2022 History of Present illness Narrative* RT Maritza(R) - 05/18/2022 3:00 PM EDT Radiology Service Progress Note PATIENT NAME: Sharon Reed DATE OF SERVICE: May 18, 2022 TIME: 3:40 PM PATIENT IDENTITY VERIFICATION COMPLETED USING TWO (2) IDENTIFIERS: Name and Date of confirmedby patient verbally. FALL SCREENING: Has the patient had 2 falls in the last year or 1 fall with injury or currently using an Ambulatory Assistive Device (Walker, Cane, Wheelchair, Crutches, etc.)? No PATIENT GENDER DATA: Female. status: : No status: NO. PATIENT RELEVANT IMPLANT DATA REVIEWED: Yes RADIOLOGY DEPARTMENT: MR; Exam(s) Completed: Spine: Lumbar spine PERIPHERAL IV DATA: Not applicable SIGNED BY: RT Maritza(R) May 18, 2022 3:40 PM documented in this encounterUniversity Hospitals Lake West Medical Center07-01-2022 Miscellaneous Notes* Telephone Encounter - Desirae Jiménez MA - 05/14/2022 11:30 AM EDT Pt called back and advised that PCP will write script and she will not be coming here to clam picker script. * Telephone Encounter - Desirae Jiménez MA - 05/14/2022 11:03 AM EDT Spoke with pt and advised prescription order would need to be picked up in the office. Pt advised she would reach out to her PCP to see if he would write the prescription. Pt will call us back and let us know if she will be coming to the office to pick it up or not. Prescription is at the front end developer if patient decides to come pick it up. * Telephone Encounter - Kathleen Elmore RN - 05/14/2022 9:34 AM EDT Attempted to call patient to notify that prescription is available to pickup here at the office. Unable to leave voicemail due to voicemail box full. Sent patient message via [employer]. Kathleen Elmore RN * Telephone Encounter - Aftab Ahmadi PA-C - 05/13/2022 4:49 PM EDT I was unable to get the medication to submit electronically to the pharmacy. It printed out here and the patient will need to pick it up here at the office prior to her MRI. Aftab Ahmadi PA-C * Telephone Encounter - Kathleen Elmore RN - 05/13/2022 1:09 PM EDT Message forwarded to Aftab Ahmadi PA-C for review. Kathleen Elmore RN * Telephone Encounter - Adrianna Martin - 05/13/2022 12:40 PM EDT Patient calling to inquire if Aftab Ahmadi would call her in an RX to take before her MRI on 05/18 for anxiety about having the MRI. Please advise and call patient with questions [phone]. Patients preferred pharmacy is [facility] in [place]. Thank you documented in this encounterUniversity Hospitals Lake West Medical Center06-16-2022 History of Present illness Narrative* Jade Melgoza PT, DPT - 04/29/2022 11:32 AM EDT Episode Visit Count: 21 Therapist That Will [...] included: Therapeutic exercise, Neuromuscular re-education, Manual therapy, Therapeuticactivities, Self-mcc management, Gait training, Patient/Family/Caregiver Education, Body mechanics training, Functional training and General conditioning. Goals for Episode of Care: updated 04/29/2022 [facility] in home exercise program.-MET Patient will decrease [...] Treatment Time Minutes (timed/untimed): 30 Jade Melgoza PT DPIsra documented in this encounterUniversity Hospitals Lake West Medical Center05-18-2022 History of Present illness Narrative* Florence Finley, - 03/31/2022 1:08 PM EDT Images from the original note were not included. Follow Up Visit Chief Complaint Sharon Reed is a 76 year old female who presents today for follow up office visit. Patient presents with: Left Wrist - Follow Up, Pain History of Present Illness PAIN EVALUATION 03/31/2022 1305 Pain Level: 3 Pain Location: Wrist-Left Description: Aching;Sharp;Throbbing;Shooting;Sore;Stabbing Duration Amount of Time: ongoing Frequency: Continuous Intervention/Comfort measure: Cold;Reposition;Relaxation;Medication;Other: See comment cortisone injection, OT HPI: Sharon [...] intolerance, new onset joint pain or swelling, newonset extremity weakness or numbness, new onset auditory or visual disturbances, lightheadedness, dizziness, partial loss of consciousness or full loss of consciousness. Current Outpatient Medications Medication Sig methylPREDNISolone (MEDROL) 4 mg Take by mouth. VITAMIN D-3 50 mcg (2,000 unit) cap Take 1 capsule by mouth once daily. zxws-RE-cmy-mck-FXW-FNCR-be-mv 1.5 mg iron- 8.73 mg CpID Take [...] hr capsule VERAPAMIL HCL ER 360 MG [id number] No current facility-administered medications for this visit. [...] treatment plan as discussed. documented in this encounterUniversity Hospitals Lake West Medical Center04-26-2022 History of Present illness Narrative* Jasper Madrigal APRN.TRUCK FARMER - 03/09/2022 9:45 AM EDT Images from the original note were not [...] She reports she had previously done outside [facility] but I do not have those images [...] Take 1 capsule by mouth once daily. iakc-QI-gfz-lhz-RTW-KZEN-be-mv 1.5 mg iron- 8.73 mg CpID Take [...] hr capsule VERAPAMIL HCL ER 360 MG [id number] No current facility-administered medications for this visit. [...] 09, 2022 10:13 AM documented in this encounterUniversity Hospitals Lake West Medical Center04-21-2022 Miscellaneous Notes* Telephone Encounter - Kristi Dale - 03/04/2022 1:56 PM EDT Patient cancelled her re-check visit today with physical therapy as she was not felling well. I telephoned patient and requested a call back to please reschedule. documented in this encounterUniversity Hospitals Lake West Medical Center04-21-2022 History of Present illness Narrative* GRECIA Cobb - 03/04/2022 10:00 AM EDT Radiology Service Progress Note PATIENT NAME: Sharon Reed DATE OF SERVICE: March 04, 2022 TIME: 10:06 AM PATIENT IDENTITY VERIFICATION COMPLETED USING TWO (2) IDENTIFIERS: Name and Date of confirmedby patient verbally and Name and Date of confirmed by identification band. FALL SCREENING: Has the patient had 2 falls in the last year or 1 fall with injury or currently using an Ambulatory Assistive Device (Walker, Cane, Wheelchair, Crutches, etc.)? Yes, Patient High Riskfor Falls What interventions were put in place to prevent falls during this visit? [place] Risk Wristband Applied, Instructed Patient to Call for Help if Needed, Offered Assistance with Transfers/Clothing, Instructed Patient to Remain Seated (Not on Exam Table) Until Exam and Increased Observations byCaregivers PATIENT GENDER DATA: Female. status: : No status: NO. PATIENT RELEVANT IMPLANT DATA REVIEWED: Yes RADIOLOGY DEPARTMENT: MR; Exam(s) Completed: Upper MSK: Wrist, left PERIPHERAL IV DATA: Not applicable SIGNED BY: GRECIA Cobb March 04, 2022 10:06 AM documented in this encounterUniversity Hospitals Lake West Medical Center04-19-2022 History of Present illness Narrative* Jade Melgoza PT, DPT - 03/02/2022 1:34 PM EDT Episode Visit Count: 20 Therapist That Will [...] patient will continue to benefit from ongoing skilledphysical therapy to progress toward set goals. PLAN FOR NEXT VISIT: recheck SUBJECTIVE: Patient Reason for Visit: Pt reports that her left knee was sore this morning and now it feels better wiht movment. Pt reports that she does not like to go on the elevator without anotherperson. Pain: Pain Pain Level: 0 OBJECTIVE MEASURES [...] stand by assist during pre-gait/gait training to preventfalls and insure safety. Facilitated proper gait cycle with the use of verbal cues for correction of gait deviations identified in the objective section above. Gait belt utilized during session for safety. Billing Therapeutic Exercise Treatment Minutes: 15 Neuromuscular Re-Education Treatment Minutes: 15 Gait Training Treatment Minutes: 10 Total Treatment Time Minutes (timed/untimed): 40 Jade Melgoza PT, DPT documented in this encounterUniversity Hospitals Lake West Medical Center04-14-2022 History of Present illness Narrative* Tatum Comer, DAGO - 02/25/2022 10:51 AM EDT Episode Visit Count: 19 Therapist That Will [...] bridging tolerance and step ups. The patient willcontinue to benefit from ongoing skilled physical therapy to progress toward set goals. PLAN FOR NEXT VISIT: 6 step up with L railing SUBJECTIVE: Patient Reason for Visit: Patient reports that her left knee became swollen last night and she didn't sleep. Patient feels that she might have overdone it yesterday at the center. Patientstates that the brace might be in next [...] 3: bridge 60 seconds 4: AB with march x 15 5: AB with SLR x [...] 40 Tatum Comer PTA documented in this encounterUniversity Hospitals Lake West Medical Center04-12-2022 History of Present illness Narrative* Tatum Comer PTA - 02/23/2022 10:21 AM EDT Episode Visit Count: 18 Therapist That Will [...] calf pain this session or for past 3day . The patient will continue to benefit from ongoing skilled physical therapy to progress towardset goals. PLAN FOR NEXT VISIT: Continue to [...] 39 Tatum Comer PTA documented in this encounterUniversity Hospitals Lake West Medical Center04-05-2022 History of Present illness Narrative* Tatum Comer PTA - 02/16/2022 9:31 AM EDT Episode Visit Count: 16 Therapist That Will [...] brace for her knee. Patient reports difficulty gettingout of chairs. Pain: Pain Pain Level: 4 [...] 40 Tatum Comer PTA documented in this encounterUniversity Hospitals Lake West Medical Center03-31-2022 History of Present illness Narrative* Chauncey Yousif MD - 02/11/2022 10:00 AM EDT Sharon is here for follow-up regarding her left knee. We worked her up for infection, loosening of the prosthesis, malalignment. Her implant appeared to be in appropriate position. She does have somevarus and valgus instability that is giving her discomfort. I do not think it is significant enoughthat a revision would be beneficial for her, and I think she is high risk for this. She also has significant spine pathology contributing to her symptoms. She is here to get fitted for custom stability brace which I think can alleviate a significant amount of her symptoms. I placed an order for this. documented in this encounterUniversity Hospitals Lake West Medical Center03-31-2022 History of Present illness Narrative* Tatum Comer PTA - 02/11/2022 9:13 AM EDT Opened in error. Patient was seeing MD before therapy and is held over at that appointment. Patientrequesting to cancel PT appointment due to time constraints. documented in this [facility]03-29-2022 Miscellaneous Notes* Telephone Encounter - Kristi Dale - 02/09/2022 3:13 PM EDT Patient has been called and scheduled for the MRI and the follow-up * Telephone Encounter - Lulú Markham - 02/09/2022 1:45 PM EDT Mri was signed by Dr. Finley. Thank you * Telephone Encounter - Kristi Dale - 02/09/2022 1:01 PM EDT The MRI order will need to be placed in patient chart again as the one she originally had was used and not unlinked for that originall appointment so it is no longer a valid order to schedule from. Please advise when new order is on the active request tab for new MRI scheduling. * Telephone Encounter - Lulú Markham - 02/09/2022 12:[address] Finley prescribed a medication for the patient. Please contact patient to reschedule her MRI. Thank you! * Telephone Encounter - Lulú Markham - 02/09/2022 11:14 AM EDT Patient could not have MRI completed for her wrist. She is asking if she would be able to have something Rx to calm her nerves so she can have the MRI completed. Please advise. If possible, I will have the ladies at the front end developer reschedule her MRI appointment. Thank you! Lulú Markham * Telephone Encounter - Kristi Vides [facility] - 02/09/2022 11:04 AM EDT Patient cancelled follow up from MRI that was scheduled on 02/10/[address] Finley. She said she did not ask for the medication to calm her nerves as she was sure that the wrist MRI would not be putting her completely in the tube. However when she was there she found out that she needed to goinside the MRI tube with her entire body and not just her wrist so they sent her home and did not complete that MRI> . She is now asking for medication and to reschedule that MRI and follow up with Dr. Finley. Please advise if she can be given the medication and if so please send to [facility] pharmacy in [place] and call patient to schedule the MRI and follow-up on her cell at [phone] documented in this encounterUniversity Hospitals Lake West Medical Center03-25-2022 History of Present illness Narrative* CARLITO Anderson) - 02/05/2022 8:00 AM EDT Radiology Service Progress Note PATIENT NAME: Sharon Reed DATE OF SERVICE: February 05, 2022 TIME: 8:04 AM PATIENT IDENTITY VERIFICATION COMPLETED USING TWO (2) IDENTIFIERS: Name and Date of confirmedby patient verbally and Name and Date of confirmed by identification band. FALL SCREENING: Has the patient had 2 falls in the last year or 1 fall with injury or currently using an Ambulatory Assistive Device (Walker, Cane, Wheelchair, Crutches, etc.)? Yes, Patient High Riskfor Falls What interventions were put in place to prevent falls during this visit? Non- Skid Socks Used, Yellow [place] Risk Wristband Applied and Instructed Patient to Remain Seated (Not on Exam Table) Until Exam PATIENT GENDER DATA: Female. status: : No status: NO. PATIENT RELEVANT IMPLANT DATA REVIEWED: Yes RADIOLOGY DEPARTMENT: MR; Exam(s) Completed: Upper MSK: Wrist, left PERIPHERAL IV DATA: Not applicable SIGNED BY: DEANNE aWtkins February 05, 2022 8:04 AM RADIOLOGY SERVICE [...] 8:09 AM PAGER/CONTACT #: documented in this encounterUniversity Hospitals Lake West Medical Center12-15-2021 NoteHNO ID: [id number] Author: CARLITO Wynn) Service: Radiology Author Type: Wafer Mounter Type: Progress Notes Filed: 10/28/2021 9:37 AM [...] BY: RT Kingsley(R) October 28, 2021 9:37 [facility]09-28-2021 History of Past illness Narrative* Problem Noted [...] of this encounter (statuses as of 02/11/2022) [facility]09[facility] History of Past illness Narrative* Problem Noted [...] of this encounter (statuses as of 02/11/2022) [facility] History of Past illness Narrative* Problem Noted [...] of this encounter (statuses as of 02/06/2022) [facility] History of Past illness Narrative* Problem Noted [...] of this encounter (statuses as of 02/16/2022) [facility] History of Past illness Narrative* Problem Noted [...] of this encounter (statuses as of 02/23/2022) [address]28-2021 History of Past illness Narrative* Problem [...] of this encounter (statuses as of 02/25/2022) [facility] History of Past illness Narrative* Problem Noted [...] of this encounter (statuses as of 03/02/2022) [address]28-2021 History of Past illness Narrative* Problem [...] of this encounter (statuses as of 03/05/2022) [address]28-2021 History of Past illness Narrative* Problem [...] of this encounter (statuses as of 03/09/2022) [address]28-2021 History of Past illness Narrative* Problem [...] of this encounter (statuses as of 03/26/2022) [facility] History of Past illness Narrative* Problem Noted [...] of this encounter (statuses as of 03/26/2022) [address]28-2021 History of Past illness Narrative* Problem [...] of this encounter (statuses as of 03/31/2022) [address]28-2021 History of Past illness Narrative* Problem [...] of this encounter (statuses as of 04/29/2022) [address]28-2021 History of Past illness Narrative* Problem [...] of this encounter (statuses as of 05/12/2022) [address]28-2021 History of Past illness Narrative* Problem [...] of this encounter (statuses as of 05/14/2022) [address]28-2021 History of Past illness Narrative* Problem [...] of this encounter (statuses as of 05/19/2022) [address]28-2021 History of Past illness Narrative* Problem [...] of this encounter (statuses as of 05/25/2022) [address]28-2021 History of Past illness Narrative* Problem [...] of this encounter (statuses as of 06/03/2022) [address]28-2021 History of Past illness Narrative* Problem [...] of this encounter (statuses as of 06/10/2022) [address]28-2021 History of Past illness Narrative* Problem [...] of this encounter (statuses as of 06/10/2022) [address]28-2021 History of Past illness Narrative* Problem [...] of this encounter (statuses as of 06/15/2022) [address]28-2021 History of Past illness Narrative* Problem [...] of this encounter (statuses as of 07/22/2022) [address]28-2021 History of Past illness Narrative* Problem [...] of this encounter (statuses as of 07/29/2022) [address]28-2021 History of Past illness Narrative* Problem [...] of this encounter (statuses as of 08/03/2022) [address]28-2021 History of Past illness Narrative* Problem [...] of this encounter (statuses as of 08/30/2022) [address]28-2021 History of Past illness Narrative* Problem [...] of this encounter (statuses as of 09/28/2022) [address]28-2021 History of Past illness Narrative* Problem [...] of this encounter (statuses as of 10/19/2022) [address]28-2021 History of Past illness Narrative* Problem [...] of this encounter (statuses as of 12/08/2022) [address]-2021 History of Past illness Narrative* Problem [...] of this encounter (statuses as of 03/16/2023) [facility] History of Past illness Narrative* Problem Noted [...] of this encounter (statuses as of 03/16/2023) [facility]07-12-2021 Miscellaneous Notes* Telephone Encounter - Arline Vaughan - 05/25/2021 8:46 AM EDT Left VM for patient to please call back and r/s. Dr. Aguilera out 05/26/21, patient can reschedule withChristopher Cobb. [facility]* Diagnosis Chronic left-sided low back pain with left-sided sciatica- Primary [facility] this encounter [facility]* Diagnosis Instability of internal left knee prosthesis, subsequent encounter- Primary documented in this encounter [facility]* Diagnosis Arthralgia of left wrist documented in this encounter [facility] Diagnosis Chronic left-sided low back pain with left-sided sciatica- Primary [facility] Diagnosis Chronic left-sided low back pain with left-sided sciatica- Primary [facility] this [facility]* Diagnosis Chronic left-sided low back pain with left-sided sciatica- Primary Parkinson's disease (HCC) Paralysis agitans documented [facility] this encounter [facility]* Diagnosis Arthralgia of left wrist Left wrist pain Pain in joint, forearm Arthritis of wrist Unspecified arthropathy, forearm [facility] this [facility]* Diagnosis Instability of internal left knee prosthesis, subsequent encounter- Primary Lumbar degenerative disc disease Degeneration of lumbar or lumbosacral intervertebral disc 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 [facility] Work Phone: Evaluation note* Diagnosis Arthralgia of left wrist- Primary Left wrist pain Pain in joint, forearm Arthritis of wrist Unspecified arthropathy, forearm documented in this encounter [facility]* Diagnosis Injury of triangular fibrocartilage complex (TFCC) of left wrist, initial encounter- Primary Scapholunate ligament injury with no instability, left, initial encounter Tendinitis of extensor tendon of hand documented in this encounter [facility]* Diagnosis Chronic left-sided low back pain with left-sided sciatica- Primary [facility] Diagnosis Onset Date Resolution Status Upper extremity pain, [facility] Work Phone: Evaluation note* Diagnosis Lumbar radiculopathy- Primary Thoracic or lumbosacral neuritis or radiculitis, unspecified documented [facility] this encounter [facility]* Diagnosis Spinal stenosis of lumbar region with neurogenic claudication Spinal stenosis, lumbar region, with neurogenic claudication documented [facility] this encounter [facility]* Diagnosis Degenerative TFCC tear, left- Primary Scapholunate ligament injury with no instability, left, initial encounter documented [facility] this encounter [facility]* Diagnosis Chronic low back pain with left-sided sciatica, unspecified back pain laterality- Primary Lumbar degenerative disc disease Degeneration of lumbar or lumbosacral intervertebral disc documented in this encounter [facility]* Diagnosis Degenerative TFCC tear, left- Primary Scapholunate ligament injury with no instability, left, initial encounter Injury of triangular fibrocartilage complex (TFCC) of left wrist, initial encounter Tendinitis of extensor tendon of hand [facility] Left leg pain- Primary Pain in limb [facility]* Diagnosis 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 [facility]* Diagnosis Chronic left shoulder pain Pain in joint, shoulder region documented in this encounter [facility]* Diagnosis Chronic left shoulder pain- Primary Pain in joint, shoulder region Impingement syndrome of left shoulder Other affections of shoulder region, not elsewhere classified Calcific tendinitis of left shoulder Calcifying tendinitis of shoulder [facility]* Diagnosis Chronic left shoulder pain- Primary Pain in joint, shoulder region Impingement syndrome of left shoulder Other affections of shoulder region, not elsewhere classified Calcific tendinitis of left shoulder Calcifying tendinitis of shoulder [facility] Diagnosis Left wrist pain- Primary Pain in joint, forearm [facility]* Diagnosis Degenerative TFCC tear, left- Primary Morbid obesity (HCC) Morbid obesity documented [facility]* Diagnosis Onset Date Resolution Status Left knee pain acute S/P total knee arthroplasty acute [facility] Work Phone: Evaluation note* Diagnosis Degenerative TFCC tear, left- Primary [facility]* Diagnosis Trigger ring finger of right hand- Primary Trigger finger (acquired) Arthritis of finger [facility]* Diagnosis Degenerative TFCC tear, left Right hand pain Pain in limb Right hand pain- Primary Pain in limb Pain Generalized pain [facility]* Diagnosis Degenerative TFCC tear, left Right hand pain Pain in limb [facility]* Diagnosis Left wrist pain Pain in joint, forearm documented in this encounter [facility] for referral (narrative)* Diagnostic Procedure Only (Routine) - Closed Specialty Diagnoses / Procedures Referred By Contac t Referred To Contact XR IMAGING Diagnoses Chronic left shoulder pain Procedures XR SHOULDER GENERAL 3V OR MORE AP/TRUE AP/OTHER LEFT RADEX SHOULDER COMPLETE MINIMUM 2 VIEWS Florence Finley DO [address] [place] [address] Xr Imaging Referral ID Status Reason Start Date Expiration Date V isits Requested Visits Authorized [id number] Closed Auto-Generate d Referral 07/28/2022 08/27/2023 1 1 [facility] for referral (narrative)* Diagnostic Procedure Only (Routine) - Closed Specialty Diagnoses / Procedures Referred By Contac t Referred To Contact XR IMAGING Diagnoses Chronic left shoulder pain Procedures XR SHOULDER GENERAL 3V OR MORE AP/TRUE AP/OTHER LEFT RADEX SHOULDER COMPLETE MINIMUM 2 VIEWS Florence Finley DO [address] [place] [address] Xr Imaging Referral ID Status Reason Start Date Expiration Date V isits Requested Visits Authorized [id number] Closed Auto-Generate d Referral 07/28/2022 08/27/2023 1 1 [facility] for referral (narrative)* Diagnostic Procedure Only (Routine) - Authorized Specialty Diagnoses / Procedures Referred By Contac t Referred To Contact XR IMAGING Diagnoses Left wrist pain Procedures XR WRIST INJURY 4V PA/LAT/OBL/SCAPH LEFT RADEX WRIST COMPLETE MINIMUM 3 VIEWS Desirae Moise PA-C [address] [place] [address] Xr Imaging Referral ID Status Reason Start Date Expiration Date Visits Requested Visits Authorized [id number] Authorized Auto-Generat ed Referral 03/15/2023 04/13/2024 1 1 [facility] for referral (narrative)* Diagnostic Procedure Only (Routine) - Pending Review Specialty Diagnoses / Procedures Referred By Contac t Referred To Contact XR IMAGING Diagnoses Degenerative TFCC tear, left Procedures XR HAND GENERAL 3V PA/LAT/OBL LEFT RADEX HAND MINIMUM 3 VIEWS Jessica Roque PA-C [address] [place] [address] [place] [address] Referral ID Status Reason Start Date Expiration Date Visits Requested Visits Authorized [id number] Pending Review Auto-Generat ed Referral 05/08/2024 06/07/2025 1 1 [facility] for referral (narrative)* Diagnostic Procedure Only (Routine) - Authorized Specialty Diagnoses / Procedures Referred By Contac t Referred To Contact XR IMAGING Diagnoses Pain Procedures XR HAND GENERAL 3V PA/LAT/OBL BILATERAL RADEX HAND MINIMUM 3 VIEWS Florence Finley DO [address] [place] [address] [place] [address] Referral ID Status Reason Start Date Expiration Date Visits Requested Visits Authorized [id number] Authorized Auto-Generat ed Referral 06/05/2024 07/05/2025 1 1 * Diagnostic Procedure Only (Routine) - Closed Specialty Diagnoses / Procedures Referred By Contac t Referred To Contact XR IMAGING Diagnoses Right hand pain Procedures XR HAND GENERAL 3V PA/LAT/OBL RIGHT RADEX HAND MINIMUM 3 VIEWS Florence Finley DO [address] [place] [address] [place] [address] Referral ID Status Reason Start Date Expiration Date V isits Requested Visits Authorized [id number] Closed Auto-Generate d Referral 05/11/2024 06/10/2025 1 1 [facility] for referral (narrative)* Diagnostic Procedure Only (Routine) - Closed Specialty Diagnoses / Procedures Referred By Contac t Referred To Contact XR IMAGING Diagnoses Right hand pain Procedures XR HAND GENERAL 3V PA/LAT/OBL RIGHT RADEX HAND MINIMUM 3 VIEWS Florence Finley DO [address] [place] [address] [place] [address] Referral ID Status Reason Start Date Expiration Date V isits Requested Visits Authorized [id number] Closed Auto-Generate d Referral 05/11/2024 06/10/2025 1 1 [facility] for referral (narrative)* Diagnostic Procedure Only (Routine) - Closed Specialty Diagnoses / Procedures Referred By Contac t Referred To Contact XR IMAGING Diagnoses Left wrist pain Procedures XR WRIST INJURY 4V PA/LAT/OBL/SCAPH LEFT RADEX WRIST COMPLETE MINIMUM 3 VIEWS Desirae Moise PA-C [address] [id number] Xr Imaging [id number] Referral ID Status Reason Start Date Expiration Date V isits Requested Visits Authorized [id number] Closed Auto-Generate d Referral 03/15/2023 04/13/2024 1 1 [facility] for referral (narrative)No reason for referral information availableWJ.W. [facility] Hospital Work Phone[facility] Narrative* Diagnostic Procedure Only (Routine) - Closed Specialty Diagnoses / Procedures Referred By Contac t Referred To Contact XR IMAGING Diagnoses Chronic left shoulder pain Procedures XR SHOULDER GENERAL 3V OR MORE AP/TRUE AP/OTHER LEFT RADEX SHOULDER COMPLETE MINIMUM 2 VIEWS Florence Finley DO [address] [place] [address] Xr Imaging Referral ID Status Reason Start Date Expiration Date V isits Requested Visits Authorized [id number] Closed Auto-Generate d Referral 07/28/2022 08/27/2023 1 1 [facility] for visit Narrative* Diagnostic Procedure Only (Routine) - Closed Specialty Diagnoses / Procedures Referred By Contac t Referred To Contact XR IMAGING Diagnoses Degenerative TFCC tear, left Procedures XR HAND GENERAL 3V PA/LAT/OBL LEFT RADEX HAND MINIMUM 3 VIEWS Jessica Roque PA-C [address] [place] [address] [place] [address] Referral ID Status Reason Start Date Expiration Date V isits Requested Visits Authorized [id number] Closed Auto-Generate d Referral 05/08/2024 06/07/2025 1 1 [facility] Instructions Instruction Description Start Date Please follow-up with Primar y Care Physician or Feed[employer] Driver for treatment or adjustment of medication regarding elevated blood pressure.Patient advised to follow-up with Primary Care Physician for BMI management. Advance Directives No Advanced Directives Records FoundDocuments on File Type Date Recorded Patient Heel Gouger Expl anation Advance Directive(s) 08/26/2021 12:02 PM Advance Directive(s) 08/10/2021 1:35 PM Documents on File Type Date Recorded Patient Heel Gouger Expl anation Advance Directive(s) 08/26/2021 12:02 PM Advance Directive(s) 08/10/2021 1:35 PM Advance Directive Response Recorded Date/ Time Advance Directives No August 18, 2016 1:24pm Living Will No October 23, 2 020 4:21pm Power of Cashier Receptionist No October 23, 2020 4:21pm Advance Directive Response Recorded Date/ Time Advance Directives No August 18, 2016 12:24pm Living Will No October 23, 2 020 3:21pm Power of Cashier Receptionist No October 23, 2020 3:21pm Advance Directive Response Recorded Date/ Time Advance Directives No August 18, 2016 12:24pm Living Will No October 25, 022 10:43am Power of Cashier Receptionist No October 25, 2022 10:43am Advance Directive Response Recorded Date/ Time Advance Directives No August 18, 2016 1:24pm Living Will No October 25, 2 022 11:43am Power of Cashier Receptionist No October 25, 2022 11:43am Advance Directive Response Recorded Date/ Time Advance Directives No March 01 024 9:59am Living Will No March 01, 2024 9:59am Power of Cashier Receptionist No March 01 9:59am Advance Directive Response Recorded Date/ Time Advance Directives No March 01 024 9:59am Advance Directive Response Recorded Date/ Time Do you have a Healthcare Power of Cashier Receptionist? No March 08, 2025 5:17pm Advance Directives No March 01 9:59am Assessments There may be information available, but it has not been provided by the sender. Review of System There may be information available, but it has not been provided by the sender. Family History No Family History Records Found Relationship Condition Age at Onset Recorded Date/T james Unknown Family History?Diabetes Unknown Jul 6:17am Family History?Diabetes Unknown Dece [facility] 2019 4:21pm Relationship Condition Age at Onset Recorded Date/T james Unknown Family History?Diabetes Unknown Jul 5:17am Family History?Diabetes Unknown Dece [facility] 2019 3:21pm Relationship Condition Age at Onset Recorded Date/T james Unknown Family History?Diabetes Unknown Dece [facility] 2019 4:21pm Family History?Diabetes Unknown [employer] 2023 9:59am Summary Purpose Reason for Referral Specialty Diagnoses / Procedures Referred By Johnathon goldberg Referred To Contact MR IMAGING Diagnoses Arthralgia of left wrist Procedures MRI WRIST WO IVCON LT MRI ANY JT UPPER EXTREMITY W/O CONTRAST MATRFlorence Bermudez DO [address] [id number] Mr Imaging Referral ID Status Reason Start Date Expiration Date Visits Requested Visits Authorized [id number] Authorized Auto-Generat ed Referral 01/27/2022 02/26/2023 1 1 Specialty Diagnoses / Procedures Referred By Johnathon t Referred To Contact MR IMAGING Diagnoses Arthralgia of left wrist Left wrist pain Arthritis of wrist Procedures MRI WRIST WO IVCON LT MRI ANY JT UPPER EXTREMITY W/O CONTRAST MATRFlorence Bermudez DO [address] [place] [address] Mr Imaging Referral ID Status Reason Start Date Expiration Date V isits Requested Visits Authorized [id number] Closed Auto-Generate d Referral 02/09/2022 03/11/2023 1 1 Specialty Diagnoses / Procedures Referred By Johnathon t Referred To Contact MR IMAGING Diagnoses Spinal stenosis of lumbar region with neurogenic claudication Procedures MRI LUMBAR SPINE WO IVCON MRI, LUMBAR SPINE Aftab Ahmadi PA-C [address] [place] [address] Mr Imaging Referral ID Status Reason Start Date Expiration Date V isits Requested Visits Authorized [id number] Closed Auto-Generate d Referral 04/30/2022 10/27/2022 1 1 Specialty Diagnoses / Procedures Referred By Johnathon goldberg Referred To Contact [facility] Diagnoses Degenerative TFCC tear, left Scapholunate ligament injury with no instability, left, initial encounter Injury of triangular fibrocartilage complex (TFCC) of left wrist, initial encounter Tendinitis of extensor tendon of hand Procedures CONSULT TO TRAINING GENERALIST OCCUPATIONAL THERAPY [facility] 60 MINS Florence Finley DO [address] [place] [address] [facility] [address] [address] Referral ID Status Reason Start Date Expiration Date V isits Requested Visits Authorized [id number] Authorized 11/14/2021 11/13/2022 99 99 Specialty Diagnoses / Procedures Referred By Johnathon goldberg Referred To Contact [facility] Diagnoses Trigger ring finger of right hand Arthritis of finger Procedures CONSULT TO TRAINING GENERALIST OCCUPATIONAL THERAPY [facility] 60 MINS Florence Finley, [address] [place] [address] [facility] [address] [address] Referral ID Status Reason Start Date Expiration Date Visits Requested Visits Authorized [id number] Pending Review Auto-Generat ed Referral 05/11/2024 05/11/2025 1 1 Chief Complaint and Reason for Visit Chief Complaint Localized swelling, mass and lump, unspecified Chief Complaint Localized swelling, mass and lump, unspecified FAT NECROSIS IN UPPER ARM SHOULDER PAIN RIGHT Reason for Visit Upper extremity pain , lateral Chief Complaint FAT NECROSIS IN UPPE R ARM SHOULDER PAIN RIGHT EORDER Reason for Visit Upper extremity pain , lateral Chief Complaint SHOULDER PAIN RIGHT EORDER Chief Complaint EORDER KNEE PAIN Chief Complaint KNEE PAIN neck/shoulder pain Chief Complaint neck/shoulder pain Acute bronchitis Chief Complaint Acute bronchitis EORDER- LEFT SHOULDER L SHOULDER PAIN RX HERE RIGHT SHOULDER PAIN Chief Complaint EORDER- LEFT SHOULDE R L SHOULDER PAIN RX HERE RIGHT SHOULDER PAIN Chief Complaint LEFT KNEE Room 1 Reason for Visit Left knee pain S/P total knee arthroplasty Chief Complaint Admit Date swelling March 08, 2025 4:3 3pm Medications Administered Section Inactive Administered Medications - [...] ized section and content) DATE CREATED AUTHOR 10/29/2021 [facility] DATE CREATED AUTHOR AUTHOR'S ORGANIZ ATION 05/13/2024 [facility] DATE CREATED AUTHOR AUTHOR'S ORGANIZ ATION 05/18/2024 [facility] DATE CREATED AUTHOR AUTHOR'S ORGANIZ ATION 03/18/2025 [facility] Source Comments (unrecognize d section and content) In the event this informatio n is protected by the Federal Confidentiality of Alcohol and Drug Abuse Patient Records regulations: The Federal rules restrict any use of the information to criminally investigate or prosecute any alcohol or drug abuse patient.[facility] Center[facility] the event this information is protected by the Federal Confidentiality of Alcohol and Drug Abuse Patient Records regulations: The Federal rules restrict any use of the information to criminally investigate or prosecute any alcohol or drug abuse patient.[facility] Center[facility] the event this information is protected by the Federal Confidentiality of Alcohol and Drug Abuse Patient Records regulations: The Federal rules restrict any use of the information to criminally investigate or prosecute any alcohol or drug abuse patient.[facility] Center[facility] the event this information is protected by the Federal Confidentiality of Alcohol and Drug Abuse Patient Records regulations: The Federal rules restrict any use of the information to criminally investigate or prosecute any alcohol or drug abuse patient.[facility] Center[facility] the event this information is protected by the Federal Confidentiality of Alcohol and Drug Abuse Patient Records regulations: The Federal rules restrict any use of the information to criminally investigate or prosecute any alcohol or drug abuse patient.[facility] Center[facility] the event this information is protected by the Federal Confidentiality of Alcohol and Drug Abuse Patient Records regulations: The Federal rules restrict any use of the information to criminally investigate or prosecute any alcohol or drug abuse patient.[facility] CenterIn the event this information is protected by the Federal Confidentiality of Alcohol and Drug Abuse Patient Records regulations: The Federal rules restrict any use of the information to criminally investigate or prosecute any alcohol or drug abuse patient.[facility] CenterIn the event this information is protected by the Federal Confidentiality of Alcohol and Drug Abuse Patient Records regulations: The Federal rules restrict any use of the information to criminally investigate or prosecute any alcohol or drug abuse patient.[facility] CenterIn the event this information is protected by the Federal Confidentiality of Alcohol and Drug Abuse Patient Records regulations: The Federal rules restrict any use of the information to criminally investigate or prosecute any alcohol or drug abuse patient.[facility] CenterIn the event this information is protected by the Federal Confidentiality of Alcohol and Drug Abuse Patient Records regulations: The Federal rules restrict any use of the information to criminally investigate or prosecute any alcohol or drug abuse patient.[facility] CenterIn the event this information is protected by the Federal Confidentiality of Alcohol and Drug Abuse Patient Records regulations: The Federal rules restrict any use of the information to criminally investigate or prosecute any alcohol or drug abuse patient.[facility] CenterIn the event this information is protected by the Federal Confidentiality of Alcohol and Drug Abuse Patient Records regulations: The Federal rules restrict any use of the information to criminally investigate or prosecute any alcohol or drug abuse patient.[facility] CenterIn the event this information is protected by the Federal Confidentiality of Alcohol and Drug Abuse Patient Records regulations: The Federal rules restrict any use of the information to criminally investigate or prosecute any alcohol or drug abuse patient.[facility] CenterIn the event this information is protected by the Federal Confidentiality of Alcohol and Drug Abuse Patient Records regulations: The Federal rules restrict any use of the information to criminally investigate or prosecute any alcohol or drug abuse patient.[facility] CenterIn the event this information is protected by the Federal Confidentiality of Alcohol and Drug Abuse Patient Records regulations: The Federal rules restrict any use of the information to criminally investigate or prosecute any alcohol or drug abuse patient.[facility] CenterIn the event this information is protected by the Federal Confidentiality of Alcohol and Drug Abuse Patient Records regulations: The Federal rules restrict any use of the information to criminally investigate or prosecute any alcohol or drug abuse patient.[facility] CenterIn the event this information is protected by the Federal Confidentiality of Alcohol and Drug Abuse Patient Records regulations: The Federal rules restrict any use of the information to criminally investigate or prosecute any alcohol or drug abuse patient.[facility] CenterIn the event this information is protected by the Federal Confidentiality of Alcohol and Drug Abuse Patient Records regulations: The Federal rules restrict any use of the information to criminally investigate or prosecute any alcohol or drug abuse patient.[facility] CenterIn the event this information is protected by the Federal Confidentiality of Alcohol and Drug Abuse Patient Records regulations: The Federal rules restrict any use of the information to criminally investigate or prosecute any alcohol or drug abuse patient.[facility] CenterIn the event this information is protected by the Federal Confidentiality of Alcohol and Drug Abuse Patient Records regulations: The Federal rules restrict any use of the information to criminally investigate or prosecute any alcohol or drug abuse patient.[facility] CenterIn the event this information is protected by the Federal Confidentiality of Alcohol and Drug Abuse Patient Records regulations: The Federal rules restrict any use of the information to criminally investigate or prosecute any alcohol or drug abuse patient.[facility] CenterIn the event this information is protected by the Federal Confidentiality of Alcohol and Drug Abuse Patient Records regulations: The Federal rules restrict any use of the information to criminally investigate or prosecute any alcohol or drug abuse patient.[facility] CenterIn the event this information is protected by the Federal Confidentiality of Alcohol and Drug Abuse Patient Records regulations: The Federal rules restrict any use of the information to criminally investigate or prosecute any alcohol or drug abuse patient.[facility] CenterIn the event this information is protected by the Federal Confidentiality of Alcohol and Drug Abuse Patient Records regulations: The Federal rules restrict any use of the information to criminally investigate or prosecute any alcohol or drug abuse patient.[facility] CenterIn the event this information is protected by the Federal Confidentiality of Alcohol and Drug Abuse Patient Records regulations: The Federal rules restrict any use of the information to criminally investigate or prosecute any alcohol or drug abuse patient.[facility] CenterIn the event this information is protected by the Federal Confidentiality of Alcohol and Drug Abuse Patient Records regulations: The Federal rules restrict any use of the information to criminally investigate or prosecute any alcohol or drug abuse patient.[facility] CenterIn the event this information is protected by the Federal Confidentiality of Alcohol and Drug Abuse Patient Records regulations: The Federal rules restrict any use of the information to criminally investigate or prosecute any alcohol or drug abuse patient.[facility] CenterIn the event this information is protected by the Federal Confidentiality of Alcohol and Drug Abuse Patient Records regulations: The Federal rules restrict any use of the information to criminally investigate or prosecute any alcohol or drug abuse patient.[facility] CenterIn the event this information is protected by the Federal Confidentiality of Alcohol and Drug Abuse Patient Records regulations: The Federal rules restrict any use of the information to criminally investigate or prosecute any alcohol or drug abuse patient.[facility] CenterIn the event this information is protected by the Federal Confidentiality of Alcohol and Drug Abuse Patient Records regulations: The Federal rules restrict any use of the information to criminally investigate or prosecute any alcohol or drug abuse patient.[facility] CenterIn the event this information is protected by the Federal Confidentiality of Alcohol and Drug Abuse Patient Records regulations: The Federal rules restrict any use of the information to criminally investigate or prosecute any alcohol or drug abuse patient.[facility] CenterIn the event this information is protected by the Federal Confidentiality of Alcohol and Drug Abuse Patient Records regulations: The Federal rules restrict any use of the information to criminally investigate or prosecute any alcohol or drug abuse patient.[facility] CenterIn the event this information is protected by the Federal Confidentiality of Alcohol and Drug Abuse Patient Records regulations: The Federal rules restrict any use of the information to criminally investigate or prosecute any alcohol or drug abuse patient.[facility] CenterIn the event this information is protected by the Federal Confidentiality of Alcohol and Drug Abuse Patient Records regulations: The Federal rules restrict any use of the information to criminally investigate or prosecute any alcohol or drug abuse patient.[facility] CenterIn the event this information is protected by the Federal Confidentiality of Alcohol and Drug Abuse Patient Records regulations: The Federal rules restrict any use of the information to criminally investigate or prosecute any alcohol or drug abuse patient.[facility] Reason for Visit (unrecogniz ed section and content) Reason Comments PT Progress Note Specialty Diagnoses / Procedures Referred By Contac t Referred To Contact Physical Therapy / PHYSICAL THERAPY Diagnoses Lumbar degenerative disc disease [M51.36] Lumbar radiculopathy [M54.16] Procedures EST RS PT ORTH MSK Aftab Ahmadi, PABerlinC [address] [place] [address] Adela Wayne PTA [address] [id number] Referral ID Status Reason Start Date Expiration Date V isits Requested Visits Authorized [id number] Authorized 11/14/2021 11/13/2022 99 99 Reason Comments Physical Therapy Reason Comments Follow Up Specialty Diagnoses / Procedures Referred By Contac t Referred To Contact MR IMAGING Diagnoses Arthralgia of left wrist Procedures MRI WRIST WO IVCON LT MRI ANY JT UPPER EXTREMITY W/O CONTRAST MATRL Florence Finley, [address] [place] [address] Mr Imaging Referral ID Status Reason Start Date Expiration Date Visits Requested Visits Authorized [id number] Authorized Auto-Generat ed Referral 01/27/2022 02/26/2023 1 1 Specialty Diagnoses / Procedures Referred By Contac t Referred To Contact MR IMAGING Diagnoses Arthralgia of left wrist Left wrist pain Arthritis of wrist Procedures MRI WRIST WO IVCON LT MRI ANY JT UPPER EXTREMITY W/O CONTRAST MATRFlorence Bermudez, [address] [place] [address] Mr Imaging Referral ID Status Reason Start Date Expiration Date V isits Requested Visits Authorized [id number] Closed Auto-Generate d Referral 02/09/2022 03/11/2023 1 [...] LUMBAR SPINE WO IVCON MRI, LUMBAR SPINE Aftab Ahmadi PA-C [address] [place] [address] Mr Imaging Referral ID Status Reason Start Date Expiration Date V isits Requested Visits Authorized [id number] Closed Auto-Generate d Referral 04/30/2022 10/27/2022 1 1 Reason Comments Established Patient MRI results Reason Comments Follow Up Pain Reason Comments New Pain Specialty Diagnoses / Procedures Referred By Contac t Referred To Contact Orthopedics / ORTHOPAEDIC SURGERY Diagnoses L knee pain Procedures OFFICE/OUTPATIENT [facility] MDM 60-74 MINUTES [facility] Susan Yañez [address] [place] [address] Rory Gutierrez MD [address] [place] [address] Referral ID Status Reason Start Date Expiration Date Visits Re quested Visits Authorized [id number] Closed 06/10/2022 11/13/2022 1 1 Reason Comments Chart prep Reason Comments OT Discharge Specialty Diagnoses / Procedures Referred By Contac t Referred To Contact [facility] Diagnoses Degenerative TFCC tear, left Scapholunate ligament injury with no instability, left, initial encounter Injury of triangular fibrocartilage complex (TFCC) of left wrist, initial encounter Tendinitis of extensor tendon of hand Procedures CONSULT TO TRAINING GENERALIST OCCUPATIONAL THERAPY EVAL HIGH COMPLEX 60 MINS Florence Finley DO [address] [place] [address] [facility] [address] [address] Referral ID Status Reason Start Date Expiration Date V isits Requested Visits Authorized [id number] Authorized 11/14/2021 11/13/2022 99 99 Reason Onset Date Comments Refill Request Refill Request 08/30/2022 Reason Comments Established Patient Follow Up Reason Onset Date Comments Refill Request 09/30/2022 Reason Comments Appointment Reason Comments Radio Gen RMP Specialty Diagnoses / Procedures Referred By Contac t Referred To Contact XR IMAGING Diagnoses Left wrist pain Procedures XR WRIST INJURY 4V PA/LAT/OBL/SCAPH LEFT RADEX WRIST COMPLETE MINIMUM 3 VIEWS Desirae Moise, GRAHAM [address] [place] [address] [place] [address] Referral ID Status Reason Start Date Expiration Date V isits Requested Visits Authorized [id number] Closed Auto-Generate d Referral 03/15/2023 04/13/2024 1 1 Care Teams (unrecognized sec tion and content) Disability Liaison Officer Relationship Specialty Start Date End Date Susan Yañez [address] [place] [address] PCP - General Family Practice 08/10/21 Susan Yañez [address] [place] [address] Referring Family Practice 04/28/21 Jefry Chang [address] [place] [address] Referring Ophthalmology 05/25/21 Disability Liaison Officer Relationship Specialty Start Date End Date Susan Yañez [address] [place] [address] PCP - General Family Practice 08/10/21 Susan Yañez [address] [facility] [address] [place] [address] Referring Family Practice 04/28/21 Jefry Chang [address] [place] [address] Referring Ophthalmology 05/25/21 Disability Liaison Officer Relationship Specialty Start Date End Date Susan Yañez [address] [place] [address] PCP - General Family Practice 08/10/21 Susan Yañez [address] [place] [address] Referring Family Practice 04/28/21 Jefry Chang [address] [place] [address] Referring Ophthalmology 05/25/21 Disability Liaison Officer Relationship Specialty Start Date End Date Susan Yañez [address] [place] [address] PCP - General Family Practice 08/10/21 Susan Yañez [address] [place] [address] Referring Family Practice 04/28/21 Jefry Chang [address] [place] [address] Referring Ophthalmology 05/25/21 Disability Liaison Officer Relationship Specialty Start Date End Date Susan Yañez [address] [place] [address] PCP - General Family Practice 08/10/21 Susan Yañez [address] [place] [address] Referring Family Practice 04/28/21 Jefry Chang [address] [place] [address] Referring Ophthalmology 05/25/21 Disability Liaison Officer Relationship Specialty Start Date End Date Susan Yañez [address] [place] [address] PCP - General Family Practice 08/10/21 Susan Yañez [address] [place] [address] Referring Family Practice 04/28/21 Jefry Chang [address] [place] [address] Referring Ophthalmology 05/25/21 Disability Liaison Officer Relationship Specialty Start Date End Date Susan Yañez [address] [place] [address] PCP - General Family Practice 08/10/21 Ssuan Yañez [address] [place] [address] Referring Family Practice 04/28/21 Jefry Chang [address] [place] [address] Referring Ophthalmology 05/25/21 Disability Liaison Officer Relationship Specialty Start Date End Date Susan Moise MD [address] [place] [address] PCP - General 02/24/01 08/09/21 Susan Yañez [address] [place] [address] PCP - General Family Practice 08/10/21 Susan Yañez [address] [place] [address] Referring Family Practice 04/28/21 Jefry Chang [address] [place] [address] Referring Ophthalmology 05/25/21 Disability Liaison Officer Relationship Specialty Start Date End Date Susan Yañez [address] [place] [address] PCP - General Family Practice 08/10/21 Susan Yañez [address] [place] [address] Referring Family Practice 04/28/21 Jefry Chang [address] [place] [address] Referring Ophthalmology 05/25/21 Disability Liaison Officer Relationship Specialty Start Date End Date Susan Yañez [address] [place] [address] PCP - General Family Practice 08/10/21 Susan Yañez [address] [place] [address] Referring Family Practice 04/28/21 Jefry Chang [address] [facility] [address] Referring Ophthalmology 05/25/21 Disability Liaison Officer Relationship Specialty Start Date End Date Susan Yañez [address] [facility] [address] [place] [address] PCP - General Family Practice 08/10/21 Susan Yañez [address] [place] [address] Referring Family Practice 04/28/21 Jefry Chang [address] [facility] [address] Referring Ophthalmology 05/25/21 Disability Liaison Officer Relationship Specialty Start Date End Date Susan Yañez [address] [facility] [address] [place] [address] PCP - General Family Practice 08/10/21 Susan Yañez [address] [place] [address] Referring Family Practice 04/28/21 Jefry Chang [address] [facility] [address] Referring Ophthalmology 05/25/21 Disability Liaison Officer Relationship Specialty Start Date End Date Susan Yañez [address] [place] [address] PCP - General Family Practice 08/10/21 Susan Yañez [address] [place] [address] Referring Family Practice 04/28/21 Jefry Chang [address] [facility] [address] Referring Ophthalmology 05/25/21 Disability Liaison Officer Relationship Specialty Start Date End Date Susan Yañez [address] [place] [address] PCP - General Family Practice 08/10/21 Susan Yañez [address] [place] [address] Referring Family Practice 04/28/21 Jefry Chang [address] [facility] [address] Referring Ophthalmology 05/25/21 Disability Liaison Officer Relationship Specialty Start Date End Date Susan Yañez [address] [place] [address] PCP - General Family Practice 08/10/21 Susan Yañez [address] [place] [address] Referring Family Practice 04/28/21 Jefry Chang [address] [facility] [address] Referring Ophthalmology 05/25/21 Disability Liaison Officer Relationship Specialty Start Date End Date Susan Yañez [address] [place] [address] PCP - General Family Medicine 08/10/21 Susan Yañez [address] [place] [address] Referring Family Medicine 04/28/21 Jefry Chang [address] [facility] [address] Referring Ophthalmology 05/25/21 Disability Liaison Officer Relationship Specialty Start Date End Date Susan Yañez [address] [place] [address] PCP - General Family Medicine 08/10/21 Susan Yañez [address] [place] [address] Referring Family Medicine 04/28/21 Jefry Chang [address] [facility] [address] Referring Ophthalmology 05/25/21 Disability Liaison Officer Relationship Specialty Start Date End Date Susan Yañez [address] [place] [address] PCP - General Family Medicine 08/10/21 Susan Yañez [address] [place] [address] Referring Family Medicine 04/28/21 Jefry Chang [address] [facility] [address] Referring Ophthalmology 05/25/21 Disability Liaison Officer Relationship Specialty Start Date End Date Susan Yañez [address] [place] [address] PCP - General Family Medicine 08/10/21 Ssuan Yañez [address] [place] [address] Referring Family Medicine 04/28/21 Jefry Chang [address] [place] [address] Referring Ophthalmology 05/25/21 Team Status: Active Member Role Status Dates Dr. Susan Yañez MD Family Provider Active Dr. Susan Yañez MD Primary Care Provider Active Team Status: Inactive Member Role Status Dates Dr. Susan Yañez MD Primary Care Provider, Attend ing Provider Active Team Status: Inactive Member Role Status Dates Dr. Susan Yañez MD Primary Care Provider Active Dr. Sav Armas MD Attending Provider, Referri ng Provider Active Team Status: Inactive Member Role Status Dates Dr. Susan Yañez MD Primary Care Provider Active Dr. Jaron Long DO Attending Provider, Shane saldivar Active Team Status: Inactive Member Role Status Dates Dr. Susan Yañez MD Primary Care Pr ovider, Attending Provider, Referring Provider Active Disability Liaison Officer Relationship Specialty Start Date End Date Susan Yañez [address] [facility] [address] [place] [address] PCP - General Family Medicine 08/10/21 Susan Yañez [address] [facility] [address] [place] [address] Referring Family Medicine 04/28/21 Jefry Chang [address] [place] [address] Referring Ophthalmology 05/25/21 Disability Liaison Officer Relationship Specialty Start Date End Date Susan Yañez [address] [facility] [address] [place] [address] PCP - General Family Medicine 08/10/21 Susan Yañez [address] [facility] [address] [place] [address] Referring Family Medicine 04/28/21 Jefry Chang [address] [place] [address] Referring Ophthalmology 05/25/21 Team Status: Inactive Member Role Status Dates Dr. Susan Yañez MD Primary Care Provider Active Renata Peres NP-C Attending Provider, Referring Pr ovider Active Team Status: Active Member Role Status Dates Dr. Susan Yañez MD Primary Care Provider Active Renata Peres NP-C Attending Provider, Referring Pr ovider Active Team Status: Inactive Member Role Status Dates Dr. Susan Yañez MD Primary Care Provider, Referr ing Provider Active Dr. Sudeep Randall DO Attending Provider Active Team Status: Inactive Member Role Status Dates Dr. Susan Yañez MD Primary Care Provider Active Dr. Junito Alston MD Attending Provider Active Team Status: Inactive Member Role Status Dates Dr. Susan Yañez MD Primary Care Provider Active Dr. Marifer Brady DO Attending Provider Active Disability Liaison Officer Relationship Specialty Start Date End Date Susan Yañez MD [address] [facility] [address] [place] [address] PCP - General Family Medicine 08/10/21 Susan Yañez MD [address] [facility] [address] [place], [place] [address] Referring Family Medicine 04/28/21 Jefry Chang [address] [place], [place] [address] Referring Ophthalmology 05/25/21 Disability Liaison Officer Relationship Specialty Start Date End Date Susan Yañez MD [address] [facility] [address] [place], [place] [address] PCP - General Family Medicine 08/10/21 Susan Yañez MD [address] [facility] [address] [place], [place] [address] Referring Family Medicine 04/28/21 Jefry Chang [address] [facility] [address] Referring Ophthalmology 05/25/21 Disability Liaison Officer Relationship Specialty Start Date End Date Susan Yañez MD [address] [place] [address] PCP - General Family Medicine 08/10/21 Susan Yañez MD [address] [place] [address] Referring Family Medicine 04/28/21 Jefry Chang [address] [facility] [address] Referring Ophthalmology 05/25/21 Disability Liaison Officer Relationship Specialty Start Date End Date Susan Yañez MD [address] [place] [address] PCP - General Family Medicine 08/10/21 Susan Yañez MD [address] [place] [address] Referring Family Medicine 04/28/21 Jefry Chang [address] [facility] [address] Referring Ophthalmology 05/25/21 Disability Liaison Officer Relationship Specialty Start Date End Date Susan Yañez MD [address] [place] [address] PCP - General Family Medicine 08/10/21 Susan Yañez MD [address] [place] [address] Referring Family Medicine 04/28/21 Jefry Chang [address] [place] [address] Referring Ophthalmology 05/25/21 Team Status: Inactive Member Role Status Dates Dr. Susan Yañez MD Primary Care Provider Active Start: November 02, 2024 End: November 02, 2024 Dr. Susan Yañez MD Attending Provider Active Start: November 02, 2024 End: November 02, 2024 Dr. Susan Yañez MD Referring Provider Active Start: November 02, 2024 End: November 02, 2024 Team Status: Inactive Member Role Status Dates Dr. Susan Yañez MD Primary Care Provider Active Start: February 19, 2025 End: February 19, 2025 Dr. Susan Yañez MD Attending Provider Active Start: February 19, 2025 End: February 19, 2025 Dr. Susan Yañez MD Referring Provider Active Start: February 19, 2025 End: February 19, 2025 Team Status: Active Member Role Status Dates Dr. Susan Yañez MD Primary Care Provider Active Team Status: Inactive Member Role Status Dates Dr. Susan Yañez MD Primary Care Provider Active Start: March 08, 2025 End: March 08, 2025 Drew Liz MD Emergency Provider [employer] t: March 08, 2025 End: March 08, 2025 Goals (unrecognized section and content) Goals may be documented in a n alternate sectionGoals may be documented in an alternate sectionGoals may be documented in an alternate sectionGoals may be documented in an alternate sectionGoals may be documented in an alternate sectionGoals may be documented in an alternate sectionGoals may be documented in an alternate sectionGoals may be documented in an alternate sectionGoals may be documented in an alternate sectionGoals may be documented in an alternate sectionGoals may be documented in an alternate sectionGoals may be documented in an alternate sectionGoals may be documented in an alternate sectionGoals may be documented in an alternate sectionGoals may be documented in an alternate section FOR RECORDS PERTAINING TO PATIENTS WHO ARE [...] BE BASED ON THE PRIMARY CLINICAL RECORDS. [facility] provides no warranty or guarantee of the accuracy or completeness of information in this document.
[2025-06-19 21:40] LABS: Squamous Epithelial Cells - UA 0-5 SEEN /hpf (5-10)
[2025-06-19 21:41] LABS: Red Blood Cells-Urine 0-5 SEEN /hpf (0-5)
[2025-06-19 21:51] LABS: AST(SGOT) 20 U/L (<=31); Alanine Aminotransfer ALT/SGPT 9 U/L (<=34); Albumin, Serum 3.7 g/dL (3.4-4.8); Alkaline Phosphatase 95 U/L (35-104); Anion Gap 10 (5-15); BUN 17 mg/dL (4-19); BUN/Creat Ratio 12.0 RATIO (10-20); Calcium,Total 9.0 mg/dL (7.6-11.0); Carbon Dioxide 24.6 mmol/L (21.0-32.0); Chloride 105 mmol/L (98-108); Estimated Creatinine Clearance 32.07 ml/min (50-250); Globulin 2.8 g/dL (2.2-4.2); Glucose 88 mg/dL (70-99); Potassium 3.8 mmol/L (3.3-5.1)
[2025-06-19 22:00] VITALS: BP 145/59; PULSE 78; RESP 16; TEMP 36.3; O2SAT 100
== END 2025-06-19 22:02 | disposition home or self-care (01) ==
PROVIDERS: Emergency Provider Emergency Medicine; PCP Family Medicine; Visit Provider Emergency Medicine
DX: I89.0 Lymphedema, not elsewhere classified (principal); I12.9 Hypertensive chronic kidney disease with stage 1 through stage 4 chronic kidney disease, or unspecified chronic kidney disease; N18.9 Chronic kidney disease, unspecified; E78.00 Pure hypercholesterolemia, unspecified; R80.0 Isolated proteinuria
CPT/HCPCS: 80053; 81001; 99283; A4216

== ENCOUNTER → 2025-07-02 | Outpatient (CLI) | payer MEDICARE, MEDICAID, SELFPAY ==
[2025-07-02 12:20] LABS: Mucous, Urine 0 SEEN /hpf (<or=2+); Red Blood Cells-Urine 0 SEEN /hpf (0-5)
[2025-07-02 15:09] LABS: Color, Urine Yellow (Yellow); Glucose, Dipstick Normal (Normal); Ketone-Dipstick Negative (Negative); Leukocyte Esterase-Dipstick 500 /ul (Negative); Nitrite-Dipstick Negative (Negative); Occult Blood-Urine Negative /ul (Negative); Protein-Dipstick 100 mg/dl (Negative); Specific Gravity, Urine 1.015 (1.002-1.030); Urine Bilirubin Dipstick Negative (Negative)
[2025-07-02 15:28] LABS: Creatinine, Urine (random) 124.00 mg/dL (28.00-217.00); Protein, Urine (Random) 45.6 mg/dL (0.0-12.0); Protein:Creat Ratio 368 mg/g CRE (0-200)
[2025-07-02 15:32] LABS: PTHIN 84 pg/mL (11-61)
[2025-07-02 15:33] LABS: Hematocrit 36.0 % (37-47); Hemoglobin 11.6 g/dL (12.0-15.0); Immature Granulocytes Count 0.000 X10^3/uL (0.0-0.0); Mean Corp Hgb Conc 32.2 g/dL (32-36); Mean Corpuscular Volume 94.5 fL (81-99); Mean Platelet Vol. 9.9 fl (6.2-12.0); NRBC Flagged by Analyzer 0 % (0-5); Platelet Count 232 K/mm3 (150-450); RBC Distribution Width CV 14.1 % (11.6-14.6); RBC Distribution Width SD 48.7 fl (35.1-43.9); Red Blood Count 3.81 M/mm3 (4.2-5.4); White Blood Count 4.5 K/mm3 (4.4-11.0)
[2025-07-02 15:45] LABS: FOLATES,SERUM (FOLIC ACID) 7.67 ng/mL (4.60-34.80)
[2025-07-02 15:54] LABS: Cholesterol 284 mg/dL (<=200); Ferritin 131 ng/mL (22-378); Low Density Lipoprotein Calc. 178 mg/dL; Triglycerides 100 mg/dL; Very Low Density Lipoprotein 20 mg/dL (5-40); Vitamin B12 592 pg/mL (180-914); Vitamin D,25 Hydroxy 34.9 ng/mL (30-100); cholesterol:hdl ratio screen 3.30
[2025-07-02 16:21] LABS: Iron 63 ug/dL (50-170); Iron Binding Capacity,Total 256 ug/dL (250-450); Iron Binding Capacity,Unsat 193 ug/dL (228-428)
[2025-07-02 16:23] LABS: AST(SGOT) 24 U/L (<=31); Alanine Aminotransfer ALT/SGPT < 5 U/L (<=34); Albumin, Serum 3.8 g/dL (3.4-4.8); Alkaline Phosphatase 101 U/L (35-104); Anion Gap 14 (5-15); BUN 19 mg/dL (4-19); BUN/Creat Ratio 11.6 RATIO (10-20); Calcium,Total 9.7 mg/dL (7.6-11.0); Carbon Dioxide 23.3 mmol/L (21.0-32.0); Chloride 105 mmol/L (98-108); Globulin 3.2 g/dL (2.2-4.2); Glucose 75 mg/dL (70-99); Potassium 3.8 mmol/L (3.3-5.1)
[2025-07-02 19:30] LABS: Squamous Epithelial Cells - UA 0-5 SEEN /hpf (5-10)
== END | disposition home or self-care (01) ==
LOC: MFPLAB 12:09
PROVIDERS: PCP Family Medicine; Referring Provider Family Medicine; Visit Provider Family Medicine
DX: I12.9 Hypertensive chronic kidney disease with stage 1 through stage 4 chronic kidney disease, or unspecified chronic kidney disease (principal); N18.30 Chronic kidney disease, stage 3 unspecified; E21.3 Hyperparathyroidism, unspecified; E55.9 Vitamin D deficiency, unspecified; D63.8 Anemia in other chronic diseases classified elsewhere
CPT/HCPCS: 36415; 80053; 80061; 81001; 82306; 82570; 82607; 82728; 82746; 83540; 83550; 83970; 84156; 85025